=== PATIENT | female | born 1955 | race American Indian/Alaskan Native ===

== ENCOUNTER 2016-03-02 17:38 | Inpatient (IN) | payer MEDICARE ==
--- NOTE | 2016-03-02 18:43 | Emergency Department Report ---
HPI - General Time Seen by Provider: 03/02/16 18:18 - HPI HPI: Room 23 The patient is a 60-year-old female brought in from home with a chief complaint decreased appetite. Patient states EMS reported the patient's sent the patient to the ED for increased lethargy, decreased appetite and weakness for 1 month. The patient is not in the ED and EMS has not left a run sheet for further information. When asked how she is feeling the patient denies any complaints states she just feels "little bit confused." Patient denies pain of any type, shortness of breath nausea or vomiting Location: [see above] Duration: One month Quality: Weakness Severity: Moderate Modifying factors: [see above] Context: [see above] Mode of transportation: [not driving] ED Past Medical Hx - Past Medical History Hx Hypertension: Yes Hx Arthritis: Yes Hx COPD: Yes Additional medical history: "spinal cord injury", nerve damage bilateral LE - Surgical History Additional Surgical History: partial hysterectomy. right rotater cuff repair - Family History Family history: no significant - Social History Smoking Status: Current Every Day Smoker Substance Use Type: None - Medications Home Medications: Home Medications Medication Instructions Recorded Confirmed Last Taken Type Ondansetron [Zofran] 4 mg PO Q6HR PRN #20 tablet 03/12/13 Unknown Rx Ranitidine HCl [Zantac] 300 mg PO QDAY #20 tablet 03/12/13 Unknown Rx oxyCODONE /ACETAMINOPHEN [Percocet 1 tab PO Q6HR PRN #20 tablet 03/12/13 Unknown Rx 5/325 mg] Azithromycin [Zithromax Z-BELÉN] 0 mg PO DAILY #6 tab 09/30/14 Unknown Rx Prednisone [predniSONE 10 mg 10 mg PO .TAPER #1 tab.ds.pk 09/30/14 Unknown Rx (6-Day Pack, 21 Tabs)] Clindamycin [Clindamycin CAP] 450 mg PO Q8HR #21 capsule 11/11/14 Unknown Rx Sulfamethoxazole/Trimethoprim 1 each PO BID #14 tablet 11/11/14 Unknown Rx [Bactrim DS TAB] ED Review of Systems ROS: Stated complaint: WEAKNESS,LOSS OF APPETITE Other details as noted in HPI Comment: All other systems reviewed and negative Constitutional: malaise, weakness Eyes: denies: eye pain, eye discharge, vision change ENT: denies: ear pain, throat pain Respiratory: denies: cough, shortness of breath, wheezing Cardiovascular: denies: chest pain, palpitations Endocrine: no symptoms reported Gastrointestinal: nausea, other (anorexia). denies: abdominal pain, vomiting Genitourinary: as per HPI Musculoskeletal: denies: back pain, joint swelling, arthralgia Skin: denies: rash, lesions Neurological: confusion Psychiatric: denies: anxiety, depression Hematological/Lymphatic: denies: easy bleeding, easy bruising Physical Exam - Physical Exam Physical Exam: GENERAL: The patient is well-developed female lying on stretcher with dried and cracked lips not appearing to be in acute distress HEENT: Normocephalic. Atraumatic. Extraocular motions are intact. Patient has dry mucous membranes. NECK: Supple. Trachea midline CHEST/LUNGS: Clear to auscultation. There is no respiratory distress noted. HEART/CARDIOVASCULAR: Regular. There is no tachycardia. There is no gallop rub or murmur. ABDOMEN: Abdomen is soft, nontender. Patient has normal bowel sounds. There is no abdominal distention. SKIN: There is no rash. There is no edema. There is no diaphoresis. NEURO: The patient is awake and alert. The patient is cooperative. The patient has no focal neurologic deficits. The patient has normal speech. Cranial nerves II through XII grossly intact MUSCULOSKELETAL: There is no evidence of acute injury. ED Medical Decision Making - Lab Data Result diagrams: 03/02/16 18:35 03/02/16 18:35 Laboratory Tests 03/02/16 03/02/16 03/02/16 18:35 18:35 18:35 WBC 16.0 H RBC 3.60 L Hgb 11.4 Hct 35.4 MCV 98 H MCH 32 MCHC 32 RDW 16.6 H Plt Count 426 Lymph % (Auto) 11.1 L [place] % (Auto) 6.1 Eos % (Auto) 0.6 Baso % (Auto) 0.7 Lymph # 1.8 [place] # 1.0 H Eos # 0.1 Baso # 0.1 Seg Neutrophils % 81.5 H Seg Neutrophils # 13.0 H Sodium 142 Potassium 3.1 L Chloride 99.2 Carbon Dioxide 24 Anion Gap 22 BUN 12 Creatinine 0.5 L Estimated GFR > 60 BUN/Creatinine Ratio 24.00 Glucose 106 H Calcium 8.7 Total Bilirubin 1.5 H AST 46 H ALT 24 Alkaline Phosphatase 126 Total Creatine Kinase 42 CK-MB (CK-2) < 1.0 CK-MB (CK-2) Rel Index 2.3 Troponin T < 0.010 Total Protein 7.3 Albumin 3.1 L Albumin/Globulin Ratio 0.7 TSH 0.477 Free T4 1.36 Laboratory Tests 03/02/16 03/02/16 03/02/16 18:35 18:35 18:35 WBC 16.0 H RBC 3.60 L Hgb 11.4 Hct 35.4 MCV 98 H MCH 32 MCHC 32 RDW 16.6 H Plt Count 426 Lymph % (Auto) 11.1 L [place] % (Auto) 6.1 Eos % (Auto) 0.6 Baso % (Auto) 0.7 Lymph # 1.8 [place] # 1.0 H Eos # 0.1 Baso # 0.1 Seg Neutrophils % 81.5 H Seg Neutrophils # 13.0 H Sodium 142 Potassium 3.1 L Chloride 99.2 Carbon Dioxide 24 Anion Gap 22 BUN 12 Creatinine 0.5 L Estimated GFR > 60 BUN/Creatinine Ratio 24.00 Glucose 106 H Calcium 8.7 Total Bilirubin 1.5 H AST 46 H ALT 24 Alkaline Phosphatase 126 Total Creatine Kinase 42 CK-MB (CK-2) < 1.0 CK-MB (CK-2) Rel Index 2.3 Troponin T < 0.010 Total Protein 7.3 Albumin 3.1 L Albumin/Globulin Ratio 0.7 TSH 0.477 Free T4 1.36 Urine Color Urine Turbidity Urine pH Ur Specific [place] Urine Protein Urine Glucose (UA) Urine Ketones Urine Blood Urine Nitrite Urine Bilirubin Urine Ictotest Urine Urobilinogen Ur Leukocyte Esterase Urine WBC (Auto) Urine RBC (Auto) U Epithel Cells (Auto) Urine Bacteria (Auto) Urine Mucus 03/02/16 20:44 WBC RBC Hgb Hct MCV MCH MCHC RDW Plt Count Lymph % (Auto) [place] % (Auto) Eos % (Auto) Baso % (Auto) Lymph # [place] # Eos # Baso # Seg Neutrophils % Seg Neutrophils # Sodium Potassium Chloride Carbon Dioxide Anion Gap BUN Creatinine Estimated GFR BUN/Creatinine Ratio Glucose Calcium Total Bilirubin AST ALT Alkaline Phosphatase Total Creatine Kinase CK-MB (CK-2) CK-MB (CK-2) Rel Index Troponin T Total Protein Albumin Albumin/Globulin Ratio TSH Free T4 Urine Color Vera Urine Turbidity Clear Urine pH 7.0 Ur Specific [place] 1.023 Urine Protein 30 mg/dl Urine Glucose (UA) Neg Urine Ketones 20 Urine Blood Neg Urine Nitrite Neg Urine Bilirubin Mod Urine Ictotest Positive Urine Urobilinogen 4.0 Ur Leukocyte Esterase Tr Urine WBC (Auto) < 1.0 Urine RBC (Auto) 1.0 U Epithel Cells (Auto) 3.0 Urine Bacteria (Auto) 1+ Urine Mucus 3+ - Radiology Data Radiology results: report reviewed (CT head), image reviewed (CT head) CT head (read by radiologist)-there is no CT evidence of intracranial hemorrhage or edema or infarct or shift 4 distinct acute finding on his noncontrast scan. Mild cerebral atrophy. - Differential Diagnosis dehydration, ICH, Critical care attestation.: If time is entered above; I have spent that time in minutes in the direct care of this critically ill patient, excluding procedure time. ED Disposition Clinical Impression: Dehydration Disposition: OP ADMITTED IP TO THIS HOSP Is pt being admited?: Yes Does the pt Need Aspirin: Yes Condition: Fair Referrals: DIANELYS MALAGON MD [Primary Care Provider] - 3-5 Days Time of Disposition: 21:25 (hospitalist paged)
[2016-03-02 18:55] LABS: Basophils % (Auto) 0.7 % (0.0-1.8); Eosinophils % (Auto) 0.6 % (0.0-4.3); Hematocrit 35.4 % (30.3-42.9); Hemoglobin 11.4 gm/dl (10.1-14.3); Mean Corpuscular HGB Conc 32 % (30-34); Mean Corpuscular Hemoglobin 32 pg (28-32); Mean Corpuscular Volume 98 fl (79-97); Platelet Count 426 K/mm3 (140-440); Red Cell Distribution Width 16.6 % (13.2-15.2)
[2016-03-02 19:23] LABS: Creatine Kinase MB < 1.0 ng/mL (0.0-4.0)
[2016-03-02 19:26] LABS: Alanine Aminotransferase 24 units/L (7-56); Albumin 3.1 g/dL (3.9-5); Albumin/Globulin Ratio 0.7 %; Alkaline Phosphatase 126 units/L (35-129); Bilirubin,Total 1.5 mg/dL (0.1-1.2); Blood Urea Nitrogen 12 mg/dL (7-17); Calcium 8.7 mg/dL (8.4-10.2); Carbon Dioxide 24 mmol/L (22-30); Chloride 99.2 mmol/L (98-107); Creatine Kinase 42 units/L (30-135); Glucose 106 mg/dL (65-100); Potassium 3.1 mmol/L (3.6-5.0); Sodium 142 mmol/L (137-145); Total Protein 7.3 g/dL (6.3-8.2)
[2016-03-02 19:32] LABS: Anion Gap 22 mmol/L
--- NOTE | 2016-03-02 20:28 | Cat Scan Report ---
FINAL REPORT PROCEDURE: CT HEAD/BRAIN WO CON TECHNIQUE: Computerized tomography of the head was performed without contrast material. HISTORY: Mental status change. Confusion, vertical nystagmus. Visual disturbance COMPARISON: No prior studies are available for comparison. FINDINGS: Skull and scalp: Normal. Paranasal sinuses: Normal. Ventricles and subarachnoid spaces: There is mild cerebral atrophy. Cerebrum: No evidence of hemorrhage, acute infarction or mass . Cerebellum and brainstem: No evidence of hemorrhage, acute infarction or mass. Vasculature: Normal. Comments: None. IMPRESSION: 1. There is no CT evidence of intracranial hemorrhage or edema or infarct or shift or distinct acute finding on this noncontrast scan 2. Mild cerebral atrophy.
[2016-03-02 21:19] LABS: Bacteria,Urine 1+ /HPF (Negative); Bilirubin,Urine MOD (Negative); Blood,Urine NEG (Negative); Ketones,Urine 20 mg/dL (Negative); Leukocyte Esterase,Urine TR (Negative); Mucus,Urine 3+ /HPF; Nitrite,Urine NEG (Negative); WBC,Urine < 1.0 /HPF (0.0-6.0)
--- NOTE | 2016-03-02 22:31 | History and Physical Report ---
History of Present Illness Chief complaint: weakness, confusion History of present illness: 60 YO Female with HTN, OA, COPD, Nicotine Dependence presents to ED for evaluation. Pt is confused and unable to provide accurate history. Pt brought in from home with a chief complaint decreased appetite and weakness for the past month, as per the patients . The patient is not in the ED. Pt denies fever, chills, CP, Palpitations, NVD, or recent ill contacts. Past History Past Medical History: hypertension, other (oa, nicotine dependence) Past Surgical History: hysterectomy, Other (rotator cuff surgery) Social history: , smoking. denies: alcohol abuse, prescription drug abuse Family history: hypertension Medications and Allergies Allergies Allergy/AdvReac Type Severity Reaction Status Date / Time No Known Allergies Allergy Verified 03/02/16 21:45 Home Medications Medication Instructions Recorded Confirmed Last Taken Type oxyCODONE /ACETAMINOPHEN [Percocet 1 tab PO Q6HR PRN #20 tablet 03/12/13 Unknown Rx 5/325 mg] Review of Systems ROS unobtainable: due to mental status Constitutional: weakness Exam - Constitutional Vitals: Temp Pulse Resp BP Pulse Ox 99 F 65 16 166/85 96 03/02/16 18:29 03/02/16 21:43 03/02/16 21:43 03/02/16 21:43 03/02/16 21:43 General appearance: Present: mild distress, disheveled, malodorous - EENT Eyes: Present: PERRL ENT: hearing intact, clear oral mucosa - Neck Neck: Present: supple, normal ROM - Respiratory Respiratory effort: normal Respiratory: bilateral: CTA - Cardiovascular Heart Sounds: Present: S1 & S2. Absent: rub, click - Extremities Extremities: pulses symmetrical, No edema Peripheral Pulses: within normal limits - Abdominal General gastrointestinal: Present: soft, non-tender, non-distended, normal bowel sounds Female genitourinary: Present: normal - Integumentary Integumentary: Present: clear, warm, dry - Musculoskeletal Musculoskeletal: gait normal, strength equal bilaterally - Psychiatric Psychiatric: appropriate mood/affect, no intact judgment & insight, no memory intact - Neurologic Neurologic: CNII-XII intact, moves all extremities Results - Labs CBC & Chem 7: 03/02/16 18:35 03/02/16 18:35 Labs: Abnormal lab results 03/02/16 03/02/16 Range/Units 18:35 18:35 WBC 16.0 H (4.5-11.0) K/mm3 RBC 3.60 L (3.65-5.03) M/mm3 MCV 98 H (79-97) fl RDW 16.6 H (13.2-15.2) % Lymph % (Auto) 11.1 L (13.4-35.0) % [place] # 1.0 H (0.0-0.8) K/mm3 Seg Neutrophils % 81.5 H (40.0-70.0) % Seg Neutrophils # 13.0 H (1.8-7.7) K/mm3 Potassium 3.1 L (3.6-5.0) mmol/L Creatinine 0.5 L (0.7-1.2) mg/dL Glucose 106 H (65-100) mg/dL Total Bilirubin 1.5 H (0.1-1.2) mg/dL AST 46 H (5-40) units/L Albumin 3.1 L (3.9-5) g/dL Assessment and Plan - Patient Problems (1) Sepsis Current Visit: Yes Status: Acute Plan to address problem: sepsis protocol, IV abx, IVF, supportive care. (2) UTI (urinary tract infection) Current Visit: Yes Status: Acute Plan to address problem: IV abx, supportive care. (3) Metabolic encephalopathy Current Visit: Yes Status: Acute Plan to address problem: Treat uti, suppourtive care. repeat bmp (4) Elevated bilirubin Current Visit: Yes Status: Acute Plan to address problem: fractionated bilirubin, (5) Debility Current Visit: Yes Status: Acute Plan to address problem: Pt consulted. (6) DVT prophylaxis Current Visit: Yes Status: Acute
[2016-03-02] MEDS ORDERED: DUONEB 0.5 MG-3 MG/3 ML SOLN IH PRN (23:13)
[2016-03-03] MEDS ORDERED: ZOSYN/NS 4.5GM/100ML 100 ML IV ONE (00:23)
[2016-03-03] MEDS ORDERED: PROVENTIL IH PRN (00:24)
[2016-03-03] MEDS: ZOSYN/NS 4.5GM/100ML 100 ML IV SCH ×4 (00:26→17:57)
[2016-03-03] MEDS: APRESOLINE IV PRN ×2 (06:21→20:22)
--- NOTE | 2016-03-03 08:24 | Admit Criteria Form ---
Admission Criteria Documentation: URINARY COMPLICATIONS Clinical Indications for Inpatient Care (Place 'X' for any and all applicable criteria): Ongoing inpatient care may be indicated for urinary complications with ANY ONE of the following: [X ]I. Urinary tract infection requiring inpatient care as indicated by ANY ONE of the following(8)(19)(20): [ ]a) Severe symptoms (eg, high fever, severe pain) [ ]b) Vomiting or dehydration requiring ongoing inpatient care [X ]c) IV antibiotic needs that cannot be managed at lower level of care [ ]d) Hemodynamic instability [ ]e) Obstruction of collecting system by stone or tumor [ ]II. Urinary retention requiring drainage or surgery (3)(4)(5)(17)(18) [ ]III. Renal failure (Use Renal Failure Criteria for further information.) [ ]IV. Oliguria(30) [ ]V. Post obstructive diuresis requiring close monitoring of urine output and intravenous compensation for excessive fluid losses(33) Extended stay beyond goal length of stay for primary condition may be needed until ALL of the following are present(3)(4)(5)(8): [ ]a) Renal function (creatinine) at baseline, or daily decreases in creatinine consistent with renal function return [ ]b) Voiding adequately or with urinary catheter or percutaneous suprapubic tube and management regimen in place that is performable at lower level of care. [ ]c) Urine output adequate [ ]d) Fever absent or resolving [ ]e) Infection absent or treatable at next level of care The original [employer] content created by [employer] has been revised. The portions of the content which have been revised are identified through the use of italic text or in bold, and [facility] has neither reviewed nor approved the modified material. All other unmodified content is copyright [employer] Please see references footnoted in the original [employer] edition 2016 Admission Criteria Met: Yes
[2016-03-03] MEDS: NACL 0.45% 1000 ML 1,000 ML IV SCH (10:28)
[2016-03-03] MEDS: LEVAQUIN 750MG/150ML 150 ML IV SCH (11:04)
[2016-03-03 16:09] LABS: Hematocrit 36.9 % (30.3-42.9); Hemoglobin 12.1 gm/dl (10.1-14.3); Mean Corpuscular HGB Conc 33 % (30-34); Mean Corpuscular Hemoglobin 32 pg (28-32); Mean Corpuscular Volume 97 fl (79-97); Platelet Count 449 K/mm3 (140-440); Red Blood Count 3.81 M/mm3 (3.65-5.03); Red Cell Distribution Width 16.5 % (13.2-15.2); White Blood Count 19.2 K/mm3 (4.5-11.0)
--- NOTE | 2016-03-03 16:26 | Progress Note ---
Assessment and Plan Assessment and plan: Acute encephalopathy with confusion. Etiology unclear. Neurocheck every [address] head negative. Hypertension. Alcohol abuse. at bedside says she drinks a lot. Last drink 2 weeks ago. Start CIWA protocol. Full code status Leukocytosis. Etiology unclear. Poss sepsis. Started on Levaquin, Zosyn History Interval history: Confused, gen weakness poor appetite Hospitalist Physical - Physical exam Narrative exam: Narrative exam: Gen: Not in acute distress, ill looking HEENT: Atraumatic Neck :supple, no JVD Lungs: Lungs clear to auscultation bilaterally Heart: S1 and S2 regular, no murmurs no gallop Abdomen:soft, nontender, nondistended, normal bowel sounds Ext: No edema, no clubbing or cyanosis Neuro: Awake, alert, confused. oriented in person , place but not to time - Constitutional Vitals: Temp Pulse Resp BP Pulse Ox 99.3 F 101 H 20 178/105 100 03/03/16 11:40 03/03/16 11:40 03/03/16 11:40 03/03/16 11:40 03/03/16 08:27 General appearance: Present: mild distress, disheveled, malodorous Results - Labs CBC & Chem 7: 03/04/16 05:14 03/04/16 05:14 Labs: Laboratory Last Values WBC 19.2 K/mm3 (4.5-11.0) H 03/03/16 15:47 RBC 3.81 M/mm3 (3.65-5.03) 03/03/16 15:47 Hgb 12.1 gm/dl (10.1-14.3) 03/03/16 15:47 Hct 36.9 % (30.3-42.9) 03/03/16 15:47 MCV 97 fl (79-97) 03/03/16 15:47 MCH 32 pg (28-32) 03/03/16 15:47 MCHC 33 % (30-34) 03/03/16 15:47 RDW 16.5 % (13.2-15.2) H 03/03/16 15:47 Plt Count 449 K/mm3 (140-440) H 03/03/16 15:47 Lymph % (Auto) 11.1 % (13.4-35.0) L 03/02/16 18:35 [place] % (Auto) 6.1 % (0.0-7.3) 03/02/16 18:35 Eos % (Auto) 0.6 % (0.0-4.3) 03/02/16 18:35 Baso % (Auto) 0.7 % (0.0-1.8) 03/02/16 18:35 Lymph # 1.8 K/mm3 (1.2-5.4) 03/02/16 18:35 [place] # 1.0 K/mm3 (0.0-0.8) H 03/02/16 18:35 Eos # 0.1 K/mm3 (0.0-0.4) 03/02/16 18:35 Baso # 0.1 K/mm3 (0.0-0.1) 03/02/16 18:35 Seg Neutrophils % 81.5 % (40.0-70.0) H 03/02/16 18:35 Seg Neutrophils # 13.0 K/mm3 (1.8-7.7) H 03/02/16 18:35 Sodium 142 mmol/L (137-145) 03/02/16 18:35 Potassium 3.1 mmol/L (3.6-5.0) L 03/02/16 18:35 Chloride 99.2 mmol/L (98-107) 03/02/16 18:35 Carbon Dioxide 24 mmol/L (22-30) 03/02/16 18:35 Anion Gap 22 mmol/L 03/02/16 18:35 BUN 12 mg/dL (7-17) 03/02/16 18:35 Creatinine 0.5 mg/dL (0.7-1.2) L 03/02/16 18:35 Estimated GFR > 60 ml/min 03/02/16 18:35 BUN/Creatinine Ratio 24.00 % 03/02/16 18:35 Glucose 106 mg/dL (65-100) H 03/02/16 18:35 Lactic Acid 1.7 mmol/L (0.7-2.0) 03/03/16 02:43 Calcium 8.7 mg/dL (8.4-10.2) 03/02/16 18:35 Total Bilirubin 1.5 mg/dL (0.1-1.2) H 03/02/16 18:35 AST 46 units/L (5-40) H 03/02/16 18:35 ALT 24 units/L (7-56) 03/02/16 18:35 Alkaline Phosphatase 126 units/L (35-129) 03/02/16 18:35 Total Creatine Kinase 42 units/L (30-135) 03/02/16 18:35 CK-MB (CK-2) < 1.0 ng/mL (0.0-4.0) 03/02/16 18:35 CK-MB (CK-2) Rel Index 2.3 (0-4) 03/02/16 18:35 Troponin T < 0.010 ng/mL (0.00-0.029) 03/02/16 18:35 Total Protein 7.3 g/dL (6.3-8.2) 03/02/16 18:35 Albumin 3.1 g/dL (3.9-5) L 03/02/16 18:35 Albumin/Globulin Ratio 0.7 % 03/02/16 18:35 TSH 0.477 mlU/mL (0.270-4.200) 03/02/16 18:35 Free T4 1.36 ng/dL (0.76-1.46) 03/02/16 18:35 Urine Color Vera (Yellow) 03/02/16 20:44 Urine Turbidity Clear (Clear) 03/02/16 20:44 Urine pH 7.0 (5.0-7.0) 03/02/16 20:44 Ur Specific [place] 1.023 (1.003-1.030) 03/02/16 20:44 Urine Protein 30 mg/dl mg/dL (Negative) 03/02/16 20:44 Urine Glucose (UA) Neg mg/dL (Negative) 03/02/16 20:44 Urine Ketones 20 mg/dL (Negative) 03/02/16 20:44 Urine Blood Neg (Negative) 03/02/16 20:44 Urine Nitrite Neg (Negative) 03/02/16 20:44 Urine Bilirubin Mod (Negative) 03/02/16 20:44 Urine Ictotest Positive (Negative) 03/02/16 20:44 Urine Urobilinogen 4.0 mg/dL (<2.0) 03/02/16 20:44 Ur Leukocyte Esterase Tr (Negative) 03/02/16 20:44 Urine WBC (Auto) < 1.0 /HPF (0.0-6.0) 03/02/16 20:44 Urine RBC (Auto) 1.0 /HPF (0.0-6.0) 03/02/16 20:44 U Epithel Cells (Auto) 3.0 /HPF (0-13.0) 03/02/16 20:44 Urine Bacteria (Auto) 1+ /HPF (Negative) 03/02/16 20:44 Urine Mucus 3+ /HPF 03/02/16 20:44
[2016-03-03 16:37] LABS: BUN/Creatinine Ratio 13.33; Blood Urea Nitrogen 8 mg/dL (7-17); Calcium 8.5 mg/dL (8.4-10.2); Carbon Dioxide 20 mmol/L (22-30); Chloride 96.5 mmol/L (98-107); Glucose 139 mg/dL (65-100); Sodium 140 mmol/L (137-145)
[2016-03-03 16:43] LABS: Anion Gap 26 mmol/L
[2016-03-03 16:44] LABS: Potassium 2.8 mmol/L (3.6-5.0)
[2016-03-03] MEDS: KCL 10MEQ/100ML 100 ML IV SCH ×3 (20:23→23:28)
[2016-03-03] MEDS: HEPARIN SUB-Q SCH (21:48)
[2016-03-04] MEDS: ZOSYN/NS 4.5GM/100ML 100 ML IV SCH ×4 (01:01→18:01)
[2016-03-04] MEDS: APRESOLINE IV PRN (01:02)
[2016-03-04] MEDS: NACL 0.45% 1000 ML 1,000 ML IV SCH (01:03)
[2016-03-04 05:47] LABS: Alanine Aminotransferase 19 units/L (7-56); Albumin/Globulin Ratio 0.7 %; Alkaline Phosphatase 117 units/L (35-129); BUN/Creatinine Ratio 11.25; Bilirubin,Total 1.9 mg/dL (0.1-1.2); Blood Urea Nitrogen 9 mg/dL (7-17); Carbon Dioxide 19 mmol/L (22-30); Chloride 95.7 mmol/L (98-107); Glucose 130 mg/dL (65-100); Hematocrit 35.3 % (30.3-42.9); Hemoglobin 11.3 gm/dl (10.1-14.3); Mean Corpuscular HGB Conc 32 % (30-34); Mean Corpuscular Hemoglobin 31 pg (28-32); Mean Corpuscular Volume 97 fl (79-97); Platelet Count 438 K/mm3 (140-440); Potassium 3.3 mmol/L (3.6-5.0); Red Blood Count 3.64 M/mm3 (3.65-5.03); Red Cell Distribution Width 16.6 % (13.2-15.2); Sodium 135 mmol/L (137-145); Total Protein 7.1 g/dL (6.3-8.2); White Blood Count 23.1 K/mm3 (4.5-11.0)
[2016-03-04 05:48] LABS: Anion Gap 24 mmol/L
[2016-03-04] MEDS: HEPARIN SUB-Q SCH ×3 (06:30→21:38)
--- NOTE | 2016-03-04 06:57 | Consultation ---
History of Present Illness Consult date: 03/04/16 Chief complaint: AMS History of present illness: This is a 60 YO F admitted for failure to threive, decreased appetite, AMS. Not much history is available as the patient is unable to give much history and no family at bedside. On my arrival the patient is sleeping but is easily aroused. Is able to give me her name but does not know her birthdate. Past History Past Medical History: hypertension, other (oa, nicotine dependence) Past Surgical History: hysterectomy, Other (rotator cuff surgery) Social history: , smoking. denies: alcohol abuse, prescription drug abuse Family history: hypertension Medications and Allergies Allergies Allergy/AdvReac Type Severity Reaction Status Date / Time No Known Allergies Allergy Verified 03/02/16 21:45 Home Medications Medication Instructions Recorded Confirmed Last Taken Type oxyCODONE /ACETAMINOPHEN [Percocet 1 tab PO Q6HR PRN #20 tablet 03/12/13 Unknown Rx 5/325 mg] Acetaminophen-Codeine #3 TAB 30 mg PO PRN 03/03/16 Unknown History FLUoxetine HCL [FLUoxetine] 20 mg PO DAILY 03/03/16 03/03/16 Unknown History Gabapentin 600 mg PO TID 03/03/16 03/03/16 Unknown History Ibuprofen 800 mg PO PRN 03/03/16 Unknown History Lisinopril/Hydrochlorothiazide 20 mg PO DAILY 03/03/16 03/03/16 Unknown History Naproxen TAB 500 mg PO BID 03/03/16 03/03/16 Unknown History Sulfamethoxazole/Trimethoprim 800 mg PO BID 03/03/16 03/03/16 Unknown History Symbicort 160-4.5 (Nf) 160 INHALATION BID 03/03/16 Unknown History hydrOXYZINE PAMOATE [hydrOXYzine 25 mg PO BID 03/03/16 03/03/16 Unknown History Pamoate] traZODone 100 mg PO QHS 03/03/16 03/03/16 Unknown History Active Meds: Active Medications Acetaminophen (Tylenol) 650 mg PO Q4H PRN PRN Reason: Pain MILD(1-3)/Fever >100.5/GILL Albuterol (Proventil) 2.5 mg IH Q6HRT PRN PRN Reason: Shortness Of Breath Heparin Sodium (Porcine) (Heparin) 5,000 unit SUB-Q Q8HR PATTY Last Admin: 03/04/16 06:30 Dose: 5,000 unit Hydralazine HCl (Apresoline) 10 mg IV Q6H PRN PRN Reason: Hypertension Last Admin: 03/03/16 20:22 Dose: 10 mg Hydralazine HCl (Apresoline) 20 mg IV Q6H PRN PRN Reason: Blood Pressure Last Admin: 03/04/16 01:02 Dose: 20 mg Sodium Chloride (Nacl 0.45% 1000 Ml) 1,000 mls @ 100 mls/hr IV DIRECT PATTY Last Admin: 03/04/16 01:03 Dose: 100 mls/hr Levofloxacin/Dextrose (Levaquin 750mg/150ml) 150 mls @ 100 mls/hr IV Q24HR PATTY PRN Reason: Protocol Last Admin: 03/03/16 11:04 Dose: 100 mls/hr Piperacillin Sod/Tazobactam Sod (Zosyn/Ns 4.5gm/100ml) 100 mls @ 100 mls/30 min IV Q6HR PATTY PRN Reason: Protocol Last Admin: 03/04/16 06:30 Dose: 100 mls/30 min Oxycodone/Acetaminophen (Percocet 5/325) 1 tab PO Q6H PRN PRN Reason: Pain Review of Systems ROS unobtainable: due to mental status Physical Examination - Vital Signs Vital Signs: Vital Signs Temp Pulse BP Pulse Ox 99 F 61 158/91 100 03/02/16 18:29 03/02/16 18:29 03/02/16 18:29 03/02/16 18:29 - EENT EENT: Present: PERRL - Respiratory Respiratory: Present: lungs clear - Cardiovascular Cardiovascular: Present: regular rate - Neurologic Cranial nerve examination: PERRL, EOMI, V1/V2/V3 grossly intact, face symmetric , tongue midline Detailed motor examination: other (generalized weakness) Reflexes: 0: ankle, bicep, knee, tricep Results - Laboratory Findings CBC and BMP: 03/04/16 05:14 03/04/16 05:14 Abnormal Lab Findings: Abnormal Labs 03/03/16 03/03/16 03/04/16 15:47 15:47 05:14 WBC 19.2 H 23.1 H RBC 3.64 L RDW 16.5 H 16.6 H Plt Count 449 H Sodium Potassium 2.8 L* Chloride 96.5 L Carbon Dioxide 20 L Creatinine 0.6 L Glucose 139 H Calcium Total Bilirubin Albumin 03/04/16 05:14 WBC RBC RDW Plt Count Sodium 135 L Potassium 3.3 L Chloride 95.7 L Carbon Dioxide 19 L Creatinine Glucose 130 H Calcium 8.0 L Total Bilirubin 1.9 H Albumin 3.0 L - Diagnostic Findings Additional findings: HCT unremarkable, labs reviewed Assessment and Plan This is a 60 YO F with encephalopathy, likely from multiple etiologies. Recommend: MRI Brain EEG to look for background slowing Ammonia, B12, RPR and HIV Continue care for her medical issues as you are doing Thank you for this consult. Call with questions.
[2016-03-04] MEDS ORDERED: SODIUM CHLORIDE IV SCH (09:00)
[2016-03-04] MEDS ORDERED: POTASSIUM CHLORIDE IV SCH (09:00)
[2016-03-04] MEDS ORDERED: DEXTROSE IV SCH (09:00)
[2016-03-04] MEDS: LEVAQUIN 750MG/150ML 150 ML IV SCH (10:24)
--- NOTE | 2016-03-04 11:34 | Progress Note ---
Assessment and Plan Assessment and plan: Acute encephalopathy with confusion. Etiology unclear. Neurocheck every [address] head negative. Order MRI Brain. Neurology consulted, will follow recommendations. Hyperammonia. Start lactulose Hypertension. uncontrolled. Start Atenolol Alcohol abuse. at bedside says she drinks a lot. Last drink 2 weeks ago. Start CIWA protocol. Start Thiamine, folic acid, multivitamin Full code status Leukocytosis. Etiology unclear. Poss sepsis. Started on Levaquin, Zosyn History Interval history: Confused, agitated gen weakness poor appetite Hospitalist Physical - Physical exam Narrative exam: Narrative exam: Gen: Not in acute distress, ill looking HEENT: Atraumatic Neck :supple, no JVD Lungs: Lungs clear to auscultation bilaterally Heart: S1 and S2 regular, no murmurs no gallop Abdomen:soft, nontender, nondistended, normal bowel sounds Ext: No edema, no clubbing or cyanosis Neuro: Awake, alert, confused. oriented in person , place but not to time - Constitutional Vitals: Temp Pulse Resp BP Pulse Ox 98.2 F 107 H 17 124/84 96 03/04/16 05:08 03/04/16 05:08 03/04/16 05:08 03/04/16 05:08 03/04/16 05:08 General appearance: Present: mild distress, disheveled, malodorous Results - Labs CBC & Chem 7: 03/04/16 05:14 03/04/16 05:14 Labs: Laboratory Last Values WBC 23.1 K/mm3 (4.5-11.0) H 03/04/16 05:14 RBC 3.64 M/mm3 (3.65-5.03) L 03/04/16 05:14 Hgb 11.3 gm/dl (10.1-14.3) 03/04/16 05:14 Hct 35.3 % (30.3-42.9) 03/04/16 05:14 MCV 97 fl (79-97) 03/04/16 05:14 MCH 31 pg (28-32) 03/04/16 05:14 MCHC 32 % (30-34) 03/04/16 05:14 RDW 16.6 % (13.2-15.2) H 03/04/16 05:14 Plt Count 438 K/mm3 (140-440) 03/04/16 05:14 Lymph % (Auto) 11.1 % (13.4-35.0) L 03/02/16 18:35 [place] % (Auto) 6.1 % (0.0-7.3) 03/02/16 18:35 Eos % (Auto) 0.6 % (0.0-4.3) 03/02/16 18:35 Baso % (Auto) 0.7 % (0.0-1.8) 03/02/16 18:35 Lymph # 1.8 K/mm3 (1.2-5.4) 03/02/16 18:35 [place] # 1.0 K/mm3 (0.0-0.8) H 03/02/16 18:35 Eos # 0.1 K/mm3 (0.0-0.4) 03/02/16 18:35 Baso # 0.1 K/mm3 (0.0-0.1) 03/02/16 18:35 Seg Neutrophils % 81.5 % (40.0-70.0) H 03/02/16 18:35 Seg Neutrophils # 13.0 K/mm3 (1.8-7.7) H 03/02/16 18:35 Sodium 135 mmol/L (137-145) L 03/04/16 05:14 Potassium 3.3 mmol/L (3.6-5.0) L 03/04/16 05:14 Chloride 95.7 mmol/L (98-107) L 03/04/16 05:14 Carbon Dioxide 19 mmol/L (22-30) L 03/04/16 05:14 Anion Gap 24 mmol/L 03/04/16 05:14 BUN 9 mg/dL (7-17) 03/04/16 05:14 Creatinine 0.8 mg/dL (0.7-1.2) 03/04/16 05:14 Estimated GFR > 60 ml/min 03/04/16 05:14 BUN/Creatinine Ratio 11.25 % 03/04/16 05:14 Glucose 130 mg/dL (65-100) H 03/04/16 05:14 Lactic Acid 1.7 mmol/L (0.7-2.0) 03/03/16 02:43 Calcium 8.0 mg/dL (8.4-10.2) L 03/04/16 05:14 Total Bilirubin 1.9 mg/dL (0.1-1.2) H 03/04/16 05:14 AST 31 units/L (5-40) 03/04/16 05:14 ALT 19 units/L (7-56) 03/04/16 05:14 Alkaline Phosphatase 117 units/L (35-129) 03/04/16 05:14 Ammonia 95.0 umol/L (25-60) H 03/04/16 09:01 Total Creatine Kinase 42 units/L (30-135) 03/02/16 18:35 CK-MB (CK-2) < 1.0 ng/mL (0.0-4.0) 03/02/16 18:35 CK-MB (CK-2) Rel Index 2.3 (0-4) 03/02/16 18:35 Troponin T < 0.010 ng/mL (0.00-0.029) 03/02/16 18:35 Total Protein 7.1 g/dL (6.3-8.2) 03/04/16 05:14 Albumin 3.0 g/dL (3.9-5) L 03/04/16 05:14 Albumin/Globulin Ratio 0.7 % 03/04/16 05:14 TSH 0.477 mlU/mL (0.270-4.200) 03/02/16 18:35 Free T4 1.36 ng/dL (0.76-1.46) 03/02/16 18:35 Urine Color Vera (Yellow) 03/02/16 20:44 Urine Turbidity Clear (Clear) 03/02/16 20:44 Urine pH 7.0 (5.0-7.0) 03/02/16 20:44 Ur Specific [place] 1.023 (1.003-1.030) 03/02/16 20:44 Urine Protein 30 mg/dl mg/dL (Negative) 03/02/16 20:44 Urine Glucose (UA) Neg mg/dL (Negative) 03/02/16 20:44 Urine Ketones 20 mg/dL (Negative) 03/02/16 20:44 Urine Blood Neg (Negative) 03/02/16 20:44 Urine Nitrite Neg (Negative) 03/02/16 20:44 Urine Bilirubin Mod (Negative) 03/02/16 20:44 Urine Ictotest Positive (Negative) 03/02/16 20:44 Urine Urobilinogen 4.0 mg/dL (<2.0) 03/02/16 20:44 Ur Leukocyte Esterase Tr (Negative) 03/02/16 20:44 Urine WBC (Auto) < 1.0 /HPF (0.0-6.0) 03/02/16 20:44 Urine RBC (Auto) 1.0 /HPF (0.0-6.0) 03/02/16 20:44 U Epithel Cells (Auto) 3.0 /HPF (0-13.0) 03/02/16 20:44 Urine Bacteria (Auto) 1+ /HPF (Negative) 03/02/16 20:44 Urine Mucus 3+ /HPF 03/02/16 20:44
--- NOTE | 2016-03-04 13:39 | XRay Report ---
KUB: A Dobbhoff catheter tube was well positioned with the tip in the distal stomach region. There is mild gaseous dilatation of small bowel loops. No other findings noted.
[2016-03-04] MEDS: CEPHULAC FEEDTUBE SCH ×2 (14:32→18:00)
[2016-03-04] MEDS ORDERED: ATIVAN IV PRN ×2 (17:55)
[2016-03-04] MEDS ORDERED: CATAPRES PO PRN (17:59)
[2016-03-04 20:17] LABS: Phosphorous 1.4 mg/dL (2.5-4.5)
[2016-03-04] MEDS: TENORMIN PO SCH (21:36)
[2016-03-04] MEDS: FOLVITE PO SCH (21:36)
[2016-03-04] MEDS: VITAMIN B-1 100 MG in NACL 0.9% 50 ML IV SCH (22:40)
[2016-03-04] MEDS ORDERED: MAGNESIUM SULFATE 4GM/100ML 100 ML IV ONE (23:16)
[2016-03-04] MEDS ORDERED: SODIUM PHOSPHATE 30 MMOL in NACL 0.9% 500 ML 500 ML IV ONE (23:16)
[2016-03-04] MEDS ORDERED: SODIUM PHOSPHATE 45 MMOL in NACL 0.9% 500 ML 500 ML IV ONE (23:19)
[2016-03-05] MEDS: ZOSYN/NS 4.5GM/100ML 100 ML IV SCH ×4 (00:16→19:59)
[2016-03-05] MEDS: CEPHULAC FEEDTUBE SCH ×4 (00:16→19:59)
[2016-03-05] MEDS: ATIVAN IV PRN ×3 (00:24→11:48)
[2016-03-05] MEDS: HEPARIN SUB-Q SCH ×3 (07:05→21:25)
[2016-03-05 08:17] LABS: Hematocrit 34.1 % (30.3-42.9); Hemoglobin 11.1 gm/dl (10.1-14.3); Mean Corpuscular HGB Conc 33 % (30-34); Mean Corpuscular Hemoglobin 32 pg (28-32); Mean Corpuscular Volume 98 fl (79-97); Platelet Count 333 K/mm3 (140-440); Red Cell Distribution Width 16.1 % (13.2-15.2); White Blood Count 20.3 K/mm3 (4.5-11.0)
[2016-03-05 08:33] LABS: Albumin 2.4 g/dL (3.9-5); Albumin/Globulin Ratio 0.7 %; BUN/Creatinine Ratio 8.57; Bilirubin,Total 1.4 mg/dL (0.1-1.2); Calcium 7.6 mg/dL (8.4-10.2); Chloride 102.3 mmol/L (98-107); Total Protein 5.9 g/dL (6.3-8.2)
[2016-03-05 08:45] LABS: Potassium 2.7 mmol/L (3.6-5.0)
[2016-03-05] MEDS ORDERED: SODIUM BICARBONATE FEEDTUBE PRN ×2 (09:42→09:47)
[2016-03-05] MEDS ORDERED: PANCREAZE DR 10,500 UNIT FEEDTUBE PRN ×2 (09:42→09:47)
[2016-03-05] MEDS ORDERED: SIMPLE SYRUP FEEDTUBE PRN ×4 (09:42→09:47)
[2016-03-05] MEDS ORDERED: NON-FORMULARY (Lisinopril/Hydrochlorothiazide 20 MG) PO SCH (10:00)
[2016-03-05] MEDS: TENORMIN PO SCH (10:47)
--- NOTE | 2016-03-05 13:18 | Progress Note ---
Assessment and Plan Assessment and plan: Acute encephalopathy with confusion. Etiology unclear. Neurocheck every [address] head negative. Ordered MRI Brain. Neurology consulted and she evaluated patient. MRI brain not done because she was very agitated. Will try again tomorrow Hyperammonia. Improved, after starting lactulose . Hypertension. uncontrolled. Start Atenolol Alcohol abuse. saidshe drinks a lot. Last drink 2 weeks ago. Continue CIWA protocol, Thiamine, folic acid, multivitamin Full code status Leukocytosis. Etiology unclear. Poss sepsis. Started on Levaquin, Zosyn Hypomagnesemia. Replace iv and recheck Hypokalemia. Replace iv Hypophosphatemia. Replace iv History Interval history: Still Confused, agitated on and off gen weakness poor appetite Hospitalist Physical - Physical exam Narrative exam: Narrative exam: Gen: Not in acute distress, ill looking HEENT: Atraumatic Neck :supple, no JVD Lungs: Lungs clear to auscultation bilaterally Heart: S1 and S2 regular, no murmurs no gallop Abdomen:soft, nontender, nondistended, normal bowel sounds Ext: No edema, no clubbing or cyanosis Neuro: Awake, alert, confused. oriented in person , place but not to time - Constitutional Vitals: Temp Pulse Resp BP Pulse Ox 97.6 F 70 16 80/63 98 03/05/16 12:00 03/05/16 12:00 03/05/16 12:00 03/05/16 12:00 03/05/16 12:00 General appearance: Present: mild distress, disheveled, malodorous Results - Labs CBC & Chem 7: 03/05/16 07:39 03/05/16 17:59 Labs: Laboratory Last Values WBC 20.3 K/mm3 (4.5-11.0) H 03/05/16 07:39 RBC 3.50 M/mm3 (3.65-5.03) L 03/05/16 07:39 Hgb 11.1 gm/dl (10.1-14.3) 03/05/16 07:39 Hct 34.1 % (30.3-42.9) 03/05/16 07:39 MCV 98 fl (79-97) H 03/05/16 07:39 MCH 32 pg (28-32) 03/05/16 07:39 MCHC 33 % (30-34) 03/05/16 07:39 RDW 16.1 % (13.2-15.2) H 03/05/16 07:39 Plt Count 333 K/mm3 (140-440) 03/05/16 07:39 Lymph % (Auto) 11.1 % (13.4-35.0) L 03/02/16 18:35 [place] % (Auto) 6.1 % (0.0-7.3) 03/02/16 18:35 Eos % (Auto) 0.6 % (0.0-4.3) 03/02/16 18:35 Baso % (Auto) 0.7 % (0.0-1.8) 03/02/16 18:35 Lymph # 1.8 K/mm3 (1.2-5.4) 03/02/16 18:35 [place] # 1.0 K/mm3 (0.0-0.8) H 03/02/16 18:35 Eos # 0.1 K/mm3 (0.0-0.4) 03/02/16 18:35 Baso # 0.1 K/mm3 (0.0-0.1) 03/02/16 18:35 Seg Neutrophils % 81.5 % (40.0-70.0) H 03/02/16 18:35 Seg Neutrophils # 13.0 K/mm3 (1.8-7.7) H 03/02/16 18:35 Sodium 141 mmol/L (137-145) 03/05/16 07:39 Potassium 2.7 mmol/L (3.6-5.0) L* 03/05/16 07:39 Chloride 102.3 mmol/L (98-107) 03/05/16 07:39 Carbon Dioxide 19 mmol/L (22-30) L 03/05/16 07:39 Anion Gap 22 mmol/L 03/05/16 07:39 BUN 12 mg/dL (7-17) 03/05/16 07:39 Creatinine 1.4 mg/dL (0.7-1.2) H D 03/05/16 07:39 Estimated GFR 46 ml/min 03/05/16 07:39 BUN/Creatinine Ratio 8.57 % 03/05/16 07:39 Glucose 84 mg/dL (65-100) 03/05/16 07:39 Lactic Acid 1.7 mmol/L (0.7-2.0) 03/03/16 02:43 Calcium 7.6 mg/dL (8.4-10.2) L 03/05/16 07:39 Phosphorus 1.4 mg/dL (2.5-4.5) L 03/04/16 19:38 Magnesium 1.0 mg/dL (1.7-2.3) L 03/04/16 19:38 Total Bilirubin 1.4 mg/dL (0.1-1.2) H 03/05/16 07:39 AST 38 units/L (5-40) 03/05/16 07:39 ALT 17 units/L (7-56) 03/05/16 07:39 Alkaline Phosphatase 105 units/L (35-129) 03/05/16 07:39 Ammonia 52.0 umol/L (25-60) 03/05/16 07:39 Total Creatine Kinase 42 units/L (30-135) 03/02/16 18:35 CK-MB (CK-2) < 1.0 ng/mL (0.0-4.0) 03/02/16 18:35 CK-MB (CK-2) Rel Index 2.3 (0-4) 03/02/16 18:35 Troponin T < 0.010 ng/mL (0.00-0.029) 03/02/16 18:35 Total Protein 5.9 g/dL (6.3-8.2) L 03/05/16 07:39 Albumin 2.4 g/dL (3.9-5) L 03/05/16 07:39 Albumin/Globulin Ratio 0.7 % 03/05/16 07:39 TSH 0.427 mlU/mL (0.270-4.200) 03/04/16 19:38 Free T4 1.36 ng/dL (0.76-1.46) 03/02/16 18:35 Urine Color Vera (Yellow) 03/02/16 20:44 Urine Turbidity Clear (Clear) 03/02/16 20:44 Urine pH 7.0 (5.0-7.0) 03/02/16 20:44 Ur Specific [place] 1.023 (1.003-1.030) 03/02/16 20:44 Urine Protein 30 mg/dl mg/dL (Negative) 03/02/16 20:44 Urine Glucose (UA) Neg mg/dL (Negative) 03/02/16 20:44 Urine Ketones 20 mg/dL (Negative) 03/02/16 20:44 Urine Blood Neg (Negative) 03/02/16 20:44 Urine Nitrite Neg (Negative) 03/02/16 20:44 Urine Bilirubin Mod (Negative) 03/02/16 20:44 Urine Ictotest Positive (Negative) 03/02/16 20:44 Urine Urobilinogen 4.0 mg/dL (<2.0) 03/02/16 20:44 Ur Leukocyte Esterase Tr (Negative) 03/02/16 20:44 Urine WBC (Auto) < 1.0 /HPF (0.0-6.0) 03/02/16 20:44 Urine RBC (Auto) 1.0 /HPF (0.0-6.0) 03/02/16 20:44 U Epithel Cells (Auto) 3.0 /HPF (0-13.0) 03/02/16 20:44 Urine Bacteria (Auto) 1+ /HPF (Negative) 03/02/16 20:44 Urine Mucus 3+ /HPF 03/02/16 20:44
[2016-03-05] MEDS: D5NS 1,000 ML IV SCH ×2 (14:27→22:50)
[2016-03-05] MEDS: KCL 10MEQ/100ML 100 ML IV SCH ×3 (14:28→15:51)
[2016-03-05] MEDS: FOLVITE PO SCH (14:28)
[2016-03-05] MEDS: VITAMIN B-1 100 MG in NACL 0.9% 50 ML IV SCH (15:50)
[2016-03-05] MEDS: LEVAQUIN 750MG/150ML 150 ML IV SCH (15:51)
[2016-03-05 18:30] LABS: BUN/Creatinine Ratio 8.57; Calcium 7.3 mg/dL (8.4-10.2); Chloride 106.8 mmol/L (98-107); Magnesium 2.6 mg/dL (1.7-2.3); Phosphorous 6.7 mg/dL (2.5-4.5); Potassium 3.2 mmol/L (3.6-5.0)
[2016-03-06] MEDS: ZOSYN/NS 4.5GM/100ML 100 ML IV SCH ×4 (00:08→17:20)
[2016-03-06] MEDS: CEPHULAC FEEDTUBE SCH ×4 (00:09→17:20)
[2016-03-06] MEDS: ATIVAN IV PRN ×4 (02:41→20:40)
[2016-03-06] MEDS: HEPARIN SUB-Q SCH ×3 (05:55→22:07)
[2016-03-06] MEDS: LEVAQUIN 750MG/150ML 150 ML IV SCH (10:27)
[2016-03-06] MEDS: FOLVITE PO SCH (10:27)
[2016-03-06 10:38] LABS: Hematocrit 31.3 % (30.3-42.9); Hemoglobin 9.9 gm/dl (10.1-14.3); Mean Corpuscular HGB Conc 32 % (30-34); Mean Corpuscular Hemoglobin 31 pg (28-32); Mean Corpuscular Volume 98 fl (79-97); Platelet Count 317 K/mm3 (140-440); Red Blood Count 3.19 M/mm3 (3.65-5.03); Red Cell Distribution Width 16.8 % (13.2-15.2)
[2016-03-06 10:44] LABS: White Blood Count 22.2 K/mm3 (4.5-11.0)
[2016-03-06 11:03] LABS: Anion Gap 21 mmol/L; BUN/Creatinine Ratio 8.18; Blood Urea Nitrogen 9 mg/dL (7-17); Calcium 7.4 mg/dL (8.4-10.2); Carbon Dioxide 16 mmol/L (22-30); Glucose 137 mg/dL (65-100); Sodium 150 mmol/L (137-145)
[2016-03-06 11:09] LABS: Potassium 2.8 mmol/L (3.6-5.0)
[2016-03-06] MEDS: TENORMIN PO SCH (11:29)
--- NOTE | 2016-03-06 13:08 | Progress Note ---
Assessment and Plan Assessment and plan: Acute encephalopathy with confusion. Etiology unclear. Neurocheck every [address] head negative. Ordered MRI Brain. Neurology consulted and she evaluated patient. MRI brain not done because she was very agitated. Will try again. Hyperammonia. Improved, after starting lactulose . Hypertension. uncontrolled. Start Atenolol Alcohol abuse. said she drinks a lot. Last drink 2 weeks ago. Continue CIWA protocol, Thiamine, folic acid, multivitamin Full code status Leukocytosis. Etiology unclear. Poss sepsis. Continue Levaquin, Zosyn Hypomagnesemia. Replaced iv. Now resolved Hypokalemia. Give iv and recheck Hypophosphatemia. resolved after repoacement. History Interval history: Still Confused, agitated on and off gen weakness poor appetite Hospitalist Physical - Physical exam Narrative exam: Narrative exam: Gen: Not in acute distress, ill looking HEENT: Atraumatic Neck :supple, no JVD Lungs: Lungs clear to auscultation bilaterally Heart: S1 and S2 regular, no murmurs no gallop Abdomen:soft, nontender, nondistended, normal bowel sounds Ext: No edema, no clubbing or cyanosis Neuro: Awake, alert, confused. oriented in person , place but not to time - Constitutional Vitals: Temp Pulse Resp BP Pulse Ox 97.6 F 75 16 114/72 100 03/06/16 08:00 03/06/16 11:29 03/06/16 08:00 03/06/16 11:29 03/06/16 08:00 General appearance: Present: mild distress, disheveled, malodorous Results - Labs CBC & Chem 7: 03/06/16 09:54 03/06/16 09:54 Labs: Laboratory Last Values WBC 22.2 K/mm3 (4.5-11.0) H 03/06/16 09:54 RBC 3.19 M/mm3 (3.65-5.03) L 03/06/16 09:54 Hgb 9.9 gm/dl (10.1-14.3) L 03/06/16 09:54 Hct 31.3 % (30.3-42.9) 03/06/16 09:54 MCV 98 fl (79-97) H 03/06/16 09:54 MCH 31 pg (28-32) 03/06/16 09:54 MCHC 32 % (30-34) 03/06/16 09:54 RDW 16.8 % (13.2-15.2) H 03/06/16 09:54 Plt Count 317 K/mm3 (140-440) 03/06/16 09:54 Lymph % (Auto) 11.1 % (13.4-35.0) L 03/02/16 18:35 [place] % (Auto) 6.1 % (0.0-7.3) 03/02/16 18:35 Eos % (Auto) 0.6 % (0.0-4.3) 03/02/16 18:35 Baso % (Auto) 0.7 % (0.0-1.8) 03/02/16 18:35 Lymph # 1.8 K/mm3 (1.2-5.4) 03/02/16 18:35 [place] # 1.0 K/mm3 (0.0-0.8) H 03/02/16 18:35 Eos # 0.1 K/mm3 (0.0-0.4) 03/02/16 18:35 Baso # 0.1 K/mm3 (0.0-0.1) 03/02/16 18:35 Seg Neutrophils % 81.5 % (40.0-70.0) H 03/02/16 18:35 Seg Neutrophils # 13.0 K/mm3 (1.8-7.7) H 03/02/16 18:35 Sodium 150 mmol/L (137-145) H D 03/06/16 09:54 Potassium 2.8 mmol/L (3.6-5.0) L* 03/06/16 09:54 Chloride 106.8 mmol/L (98-107) 03/05/16 17:59 Carbon Dioxide 16 mmol/L (22-30) L 03/06/16 09:54 Anion Gap 19 mmol/L 03/05/16 17:59 BUN 9 mg/dL (7-17) 03/06/16 09:54 Creatinine 1.1 mg/dL (0.7-1.2) 03/06/16 09:54 Estimated GFR > 60 ml/min 03/06/16 09:54 BUN/Creatinine Ratio 8.18 % 03/06/16 09:54 Glucose 137 mg/dL (65-100) H 03/06/16 09:54 Lactic Acid 1.7 mmol/L (0.7-2.0) 03/03/16 02:43 Calcium 7.4 mg/dL (8.4-10.2) L 03/06/16 09:54 Phosphorus 6.7 mg/dL (2.5-4.5) H D 03/05/16 17:59 Magnesium 2.6 mg/dL (1.7-2.3) H 03/05/16 17:59 Total Bilirubin 1.4 mg/dL (0.1-1.2) H 03/05/16 07:39 AST 38 units/L (5-40) 03/05/16 07:39 ALT 17 units/L (7-56) 03/05/16 07:39 Alkaline Phosphatase 105 units/L (35-129) 03/05/16 07:39 Ammonia 52.0 umol/L (25-60) 03/05/16 07:39 Total Creatine Kinase 42 units/L (30-135) 03/02/16 18:35 CK-MB (CK-2) < 1.0 ng/mL (0.0-4.0) 03/02/16 18:35 CK-MB (CK-2) Rel Index 2.3 (0-4) 03/02/16 18:35 Troponin T < 0.010 ng/mL (0.00-0.029) 03/02/16 18:35 Total Protein 5.9 g/dL (6.3-8.2) L 03/05/16 07:39 Albumin 2.4 g/dL (3.9-5) L 03/05/16 07:39 Albumin/Globulin Ratio 0.7 % 03/05/16 07:39 TSH 0.427 mlU/mL (0.270-4.200) 03/04/16 19:38 Free T4 1.36 ng/dL (0.76-1.46) 03/02/16 18:35 Urine Color Vera (Yellow) 03/02/16 20:44 Urine Turbidity Clear (Clear) 03/02/16 20:44 Urine pH 7.0 (5.0-7.0) 03/02/16 20:44 Ur Specific [place] 1.023 (1.003-1.030) 03/02/16 20:44 Urine Protein 30 mg/dl mg/dL (Negative) 03/02/16 20:44 Urine Glucose (UA) Neg mg/dL (Negative) 03/02/16 20:44 Urine Ketones 20 mg/dL (Negative) 03/02/16 20:44 Urine Blood Neg (Negative) 03/02/16 20:44 Urine Nitrite Neg (Negative) 03/02/16 20:44 Urine Bilirubin Mod (Negative) 03/02/16 20:44 Urine Ictotest Positive (Negative) 03/02/16 20:44 Urine Urobilinogen 4.0 mg/dL (<2.0) 03/02/16 20:44 Ur Leukocyte Esterase Tr (Negative) 03/02/16 20:44 Urine WBC (Auto) < 1.0 /HPF (0.0-6.0) 03/02/16 20:44 Urine RBC (Auto) 1.0 /HPF (0.0-6.0) 03/02/16 20:44 U Epithel Cells (Auto) 3.0 /HPF (0-13.0) 03/02/16 20:44 Urine Bacteria (Auto) 1+ /HPF (Negative) 03/02/16 20:44 Urine Mucus 3+ /HPF 03/02/16 20:44
--- NOTE | 2016-03-06 13:24 | Consultation ---
History of Present Illness - Reason for Consult Consult date: 03/06/16 Leukocytosis Requesting physician: NOAH PEREZ - History of Present Illness Edith Coelho is a 60-year-old female with hypertension, obstructive sleep apnea and COPD who was admitted to [facility] on 03/02/16 with a one-month history of decreased appetite and increasing weakness. She has had a persistent leukocytosis. She is very confused at present and cannot furnish any further history and no family members are curremt;y available for interview. Thus the history is obtained solely from her medical records. Her has apparently told the nursing staff that she consumes a lot of alcohol but exact details are unclear. Review of systems Not obtainable secondary to pt's menatl status. Past History Past Medical History: hypertension, other (oa, nicotine dependence) Past Surgical History: hysterectomy, Other (rotator cuff surgery) Social history: , smoking. denies: alcohol abuse, prescription drug abuse Family history: hypertension Medications and Allergies Allergies Allergy/AdvReac Type Severity Reaction Status Date / Time No Known Allergies Allergy Verified 03/02/16 21:45 Home Medications Medication Instructions Recorded Confirmed Last Taken Type oxyCODONE /ACETAMINOPHEN [Percocet 1 tab PO Q6HR PRN #20 tablet 03/12/13 Unknown Rx 5/325 mg] Acetaminophen-Codeine #3 TAB 30 mg PO PRN 03/03/16 Unknown History FLUoxetine HCL [FLUoxetine] 20 mg PO DAILY 03/03/16 03/03/16 Unknown History Gabapentin 600 mg PO TID 03/03/16 03/03/16 Unknown History Ibuprofen 800 mg PO PRN 03/03/16 Unknown History Lisinopril/Hydrochlorothiazide 20 mg PO DAILY 03/03/16 03/03/16 Unknown History Naproxen TAB 500 mg PO BID 03/03/16 03/03/16 Unknown History Sulfamethoxazole/Trimethoprim 800 mg PO BID 03/03/16 03/03/16 Unknown History Symbicort 160-4.5 (Nf) 160 INHALATION BID 03/03/16 Unknown History hydrOXYZINE PAMOATE [hydrOXYzine 25 mg PO BID 03/03/16 03/03/16 Unknown History Pamoate] traZODone 100 mg PO QHS 03/03/16 03/03/16 Unknown History Active Meds: Active Medications Acetaminophen (Tylenol) 650 mg PO Q4H PRN PRN Reason: Pain MILD(1-3)/Fever >100.5/GILL Albuterol (Proventil) 2.5 mg IH Q6HRT PRN PRN Reason: Shortness Of Breath Lipase/Protease/Amylase (Pancreaze Dr 10,500 Unit) 1 each FEEDTUBE PRN PRN PRN Reason: For Clogged Feeding Tube Lipase/Protease/Amylase (Pancreaze Dr 10,500 Unit) 1 each FEEDTUBE PRN PRN PRN Reason: For Clogged Feeding Tube Atenolol (Tenormin) 50 mg PO QDAY [facility] Last Admin: 03/06/16 11:29 Dose: Not Given Clonidine HCl (Catapres) 0.1 mg PO Q4H PRN PRN Reason: For SBP>170 or DBP>110 Folic Acid (Folvite) 1 mg PO QDAY [facility] Last Admin: 03/06/16 10:27 Dose: 1 mg Heparin Sodium (Porcine) (Heparin) 5,000 unit SUB-Q Q8HR [facility] Last Admin: 03/06/16 05:55 Dose: 5,000 unit Hydralazine HCl (Apresoline) 20 mg IV Q6H PRN PRN Reason: Blood Pressure Last Admin: 03/04/16 01:02 Dose: 20 mg Levofloxacin/Dextrose (Levaquin 750mg/150ml) 150 mls @ 100 mls/hr IV Q24HR [facility] PRN Reason: Protocol Last Admin: 03/06/16 10:27 Dose: 100 mls/hr Piperacillin Sod/Tazobactam Sod (Zosyn/Ns 4.5gm/100ml) 100 mls @ 100 mls/30 min IV Q6HR [facility] PRN Reason: Protocol Last Admin: 03/06/16 11:29 Dose: 100 mls/30 min Thiamine HCl 100 mg/ Sodium (Chloride) 51 mls @ 100 mls/hr IV QDAY [facility] Last Admin: 03/05/16 15:50 Dose: 100 mls/hr Dextrose (D5w) 1,000 mls @ 100 mls/hr IV DIRECT PATTY Potassium Chloride (Kcl 10meq/100ml) 100 mls @ 100 mls/hr IV Q1H [facility] Stop: 03/06/16 15:59 Lactulose (Cephulac) 20 gm FEEDTUBE Q6HR [facility] Last Admin: 03/06/16 11:29 Dose: 20 gm Lorazepam (Ativan) 1 mg IV Q1H PRN PRN Reason: agitation or anxiety Last Admin: 03/06/16 11:28 Dose: 1 mg Lorazepam (Ativan) 4 mg IV Q1HR PRN PRN Reason: CIWA-Ar 16-25 Lorazepam (Ativan) 2 mg IV Q1HR PRN PRN Reason: CIWA-Ar 8-15 Last Admin: 03/05/16 11:48 Dose: 2 mg Lorazepam (Ativan) 4 mg IV Q15MIN PRN PRN Reason: CIWA-Ar >25 Miscellaneous Medication (Lisinopril/Hydrochlorothiazide) 20 mg PO DAILY [facility] Oxycodone/Acetaminophen (Percocet 5/325) 1 tab PO Q6H PRN PRN Reason: Pain Simple Syrup (Simple Syrup) 15 ml FEEDTUBE PRN PRN PRN Reason: Hypoglycemia Simple Syrup (Simple Syrup) 30 ml FEEDTUBE PRN PRN PRN Reason: Hypoglycemia Simple Syrup (Simple Syrup) 15 ml FEEDTUBE PRN PRN PRN Reason: Hypoglycemia Simple Syrup (Simple Syrup) 30 ml FEEDTUBE PRN PRN PRN Reason: Hypoglycemia Sodium Bicarbonate (Sodium Bicarbonate) 325 mg FEEDTUBE PRN PRN PRN Reason: For Clogged Feeding Tube Sodium Bicarbonate (Sodium Bicarbonate) 325 mg FEEDTUBE PRN PRN PRN Reason: For Clogged Feeding Tube Sodium Bicarbonate (Sodium Bicarbonate) 650 mg FEEDTUBE TID [facility] Stop: 03/08/16 13:59 Physical Examination - Physical Exam Narrative exam: GENERAL: Well-developed, thin female who is lying sideways in the bed and is somewhat agitated. HEAD: Normocephalic. No lesions seen. EYES: Pupils are equal reactive to light and accommodation. There is no scleral icterus. Optic fundi are not examined. There is bilateral arcus senilis. EARS: Tympanic membranes are normal. THROAT: Oropharynx is normal with no evidence of oral candidiasis or pharyngitis. Poor dentition but no obvious dental infection seen. Some bleeding from the upper lip. NECK: Supple. No enlargement of the thyroid gland. No significant cervical lymphadenopathy. No jugular venous distention at 30. LUNGS: Clear with no adventitious sounds. HEART: Regular rate. S1 and S2 are normal. There are no murmurs, gallops, clicks or rubs heard. ABDOMEN: Soft, slightly distended and mildly, diffusdely tender although she yells when she is touched anywhere. Liver and spleen are not palpably enlarged or tender. No palpable masses. No ascites. Bowel sounds are normoactive. RECTAL: No perirectal pathology EXTREMITIES: No rash, peripheral lymphadenopathy, clubbing or edema. : Normal external female. No Gonzalez. Diaper in place. NEUROLOGIC: No focal findings. Agitated and confused. No asterixis. - Constitutional Vitals: Vital Signs Temp Pulse Resp BP Pulse Ox 97.6 F 75 16 114/72 100 03/06/16 08:00 03/06/16 11:29 03/06/16 08:00 03/06/16 11:29 03/06/16 08:00 Temperature -Last 24 Hours Temperature 97.6 F Temperature 98.4 F Temperature 97.4 F Results - Labs CBC & Chem 7: 03/06/16 09:54 03/06/16 18:07 Labs: Abnormal lab results Laboratory Tests 03/02/16 03/02/16 03/02/16 18:35 18:35 20:44 Troponin T < 0.010 TSH 0.477 Free T4 1.36 Urine WBC (Auto) < 1.0 Urine RBC (Auto) 1.0 Urine Bacteria (Auto) 1+ Microbiology 03/04/16 09:18 Peripheral/Venous Blood Culture - Preliminary NO GROWTH AFTER 48 HOURS 03/04/16 09:01 Peripheral/Venous Blood Culture - Preliminary NO GROWTH AFTER 48 HOURS 03/04/16 Unknown Urine,Clean Catch Urine Culture - Preliminary 10,00-100,00 Gram Negative [place] ID/sensitivity pending) Imagin/3: CT of head: Mild cerebral atrophy. Otherwise normal. Assessment and Plan Current antibiotics: Levaquin 750 mg IV q24h 03/03 --> Previous antibiotics: Zosyn 4.5 grams IV q8h 03/03-03/06 ASSESSMENT: екатерина Coelho is a 60-year-old female with hypertension, obstructive sleep apnea and COPD who was admitted to [facility] on 03/02/16 with a one-month history of decreased appetite and increasing weakness. She has had a persistent leukocytosis. Problem list: 1. Leukocytosis -Likely reactive secondary to whatever is causing her encephalopathy: ? ETOH withdrawal, etc. -Rule out infection although work up negative to date and no obvious source on exam 2. AMS -Rule out toxic metabolic encephalopathy -Rule out ETOH withdrawal -Doubt [employer] infection 3. Gram negative pyuria -Urinalysis not suggestive of UTI with no pyuria 4. Hypokalemia -? secondary to hydrochlorothiazide PLAN: 1. Stop antibiotics at this point and follow 2. Work up for encephalopathy as per neuro 3. If leukocytosis persists and no etiology uncovered may need to consider a lumbar puncture 4. Replete K as per the hospitalist team Thank you for this consultation. We will follow with you. Bayron Avitia MD [facility] Office: [phone]
[2016-03-06] MEDS: SODIUM BICARBONATE FEEDTUBE SCH ×2 (14:17→20:53)
[2016-03-06] MEDS: HCTZ PO SCH (15:00)
[2016-03-06] MEDS: ZESTRIL PO SCH (15:00)
[2016-03-06] MEDS: KCL 10MEQ/100ML 100 ML IV SCH ×5 (17:21→23:00)
[2016-03-06 18:57] LABS: BUN/Creatinine Ratio 8.88; Blood Urea Nitrogen 8 mg/dL (7-17); Calcium 7.7 mg/dL (8.4-10.2); Carbon Dioxide 16 mmol/L (22-30); Chloride 113.5 mmol/L (98-107); Glucose 106 mg/dL (65-100); Sodium 145 mmol/L (137-145)
[2016-03-06 19:29] LABS: Anion Gap 18 mmol/L; Potassium 2.8 mmol/L (3.6-5.0)
[2016-03-07] MEDS: ZOSYN/NS 4.5GM/100ML 100 ML IV SCH ×3 (00:58→18:00)
[2016-03-07] MEDS: CEPHULAC FEEDTUBE SCH ×4 (00:59→20:01)
[2016-03-07 05:09] LABS: Hematocrit 30.9 % (30.3-42.9); Hemoglobin 9.9 gm/dl (10.1-14.3); Mean Corpuscular HGB Conc 32 % (30-34); Mean Corpuscular Hemoglobin 31 pg (28-32); Mean Corpuscular Volume 97 fl (79-97); Platelet Count 300 K/mm3 (140-440); Red Cell Distribution Width 16.6 % (13.2-15.2); White Blood Count 19.7 K/mm3 (4.5-11.0)
[2016-03-07 05:26] LABS: BUN/Creatinine Ratio 8.75; Blood Urea Nitrogen 7 mg/dL (7-17); Calcium 7.8 mg/dL (8.4-10.2); Carbon Dioxide 19 mmol/L (22-30); Glucose 140 mg/dL (65-100); Magnesium 1.8 mg/dL (1.7-2.3); Phosphorous 2.5 mg/dL (2.5-4.5)
[2016-03-07 05:27] LABS: Chloride 114.1 mmol/L (98-107); Sodium 145 mmol/L (137-145)
[2016-03-07 05:28] LABS: Anion Gap 15 mmol/L; Potassium 2.9 mmol/L (3.6-5.0)
[2016-03-07] MEDS: HEPARIN SUB-Q SCH ×3 (06:07→22:51)
[2016-03-07] MEDS: TENORMIN PO SCH (10:33)
[2016-03-07] MEDS: HCTZ PO SCH (10:33)
[2016-03-07] MEDS: SODIUM BICARBONATE FEEDTUBE SCH ×3 (10:34→22:50)
[2016-03-07] MEDS: FOLVITE PO SCH (10:34)
[2016-03-07] MEDS: ZESTRIL PO SCH (10:34)
[2016-03-07] MEDS: POTASSIUM CHLORIDE FEEDTUBE SCH ×4 (10:35→19:59)
[2016-03-07] MEDS: KCL 10MEQ/100ML 100 ML IV SCH ×6 (11:02→19:59)
[2016-03-07] MEDS: VITAMIN B-1 100 MG in NACL 0.9% 50 ML IV SCH (12:16)
[2016-03-07] MEDS: APRESOLINE IV PRN (12:28)
--- NOTE | 2016-03-07 13:01 | Progress Note ---
Assessment and Plan Assessment and plan: Acute encephalopathy with confusion. Etiology unclear. Neurocheck every [address] head negative. Ordered MRI Brain. Neurology consulted and she evaluated patient. MRI brain not done because she was very agitated. Will try again. Hyperammonia. Improved, after starting lactulose . Hypertension. Continue Atenolol, lisinopril, clonidine prn. Alcohol withdrawal syndrome. On [facility] protocol Alcohol abuse. said she drinks a lot. Last drink 2 weeks ago. Continue [facility] protocol, Thiamine, folic acid, multivitamin. Full code status Leukocytosis. Etiology unclear. Poss sepsis. ID Physician following. Hypomagnesemia. Replaced iv. Now resolved Hypokalemia. This has been persistent even after getting large doses of potassium. Will continue to replace. Hypophosphatemia. resolved after replacement. Full code status. History Interval history: Still Confused, still agitated on and off, Could not do MRI because of agitation gen weakness poor appetite Hospitalist Physical - Physical exam Narrative exam: Narrative exam: Gen: Not in acute distress, ill looking,emqaciated HEENT: Atraumatic Neck :supple, no JVD Lungs: Lungs clear to auscultation bilaterally Heart: S1 and S2 regular, no murmurs no gallop Abdomen:soft, nontender, nondistended, normal bowel sounds Ext: No edema, no clubbing or cyanosis Neuro: Awake, alert, confused. oriented in person , place but not to time - Constitutional Vitals: Temp Pulse Resp BP Pulse Ox 97.5 F L 82 18 170/109 98 03/07/16 12:00 03/07/16 12:00 03/07/16 12:00 03/07/16 12:28 03/07/16 12:00 General appearance: Present: mild distress, disheveled, malodorous Results - Labs CBC & Chem 7: 03/07/16 04:53 03/07/16 04:53 Labs: Laboratory Last Values WBC 19.7 K/mm3 (4.5-11.0) H 03/07/16 04:53 RBC 3.20 M/mm3 (3.65-5.03) L 03/07/16 04:53 Hgb 9.9 gm/dl (10.1-14.3) L 03/07/16 04:53 Hct 30.9 % (30.3-42.9) 03/07/16 04:53 MCV 97 fl (79-97) 03/07/16 04:53 MCH 31 pg (28-32) 03/07/16 04:53 MCHC 32 % (30-34) 03/07/16 04:53 RDW 16.6 % (13.2-15.2) H 03/07/16 04:53 Plt Count 300 K/mm3 (140-440) 03/07/16 04:53 Lymph % (Auto) 11.1 % (13.4-35.0) L 03/02/16 18:35 [place] % (Auto) 6.1 % (0.0-7.3) 03/02/16 18:35 Eos % (Auto) 0.6 % (0.0-4.3) 03/02/16 18:35 Baso % (Auto) 0.7 % (0.0-1.8) 03/02/16 18:35 Lymph # 1.8 K/mm3 (1.2-5.4) 03/02/16 18:35 [place] # 1.0 K/mm3 (0.0-0.8) H 03/02/16 18:35 Eos # 0.1 K/mm3 (0.0-0.4) 03/02/16 18:35 Baso # 0.1 K/mm3 (0.0-0.1) 03/02/16 18:35 Seg Neutrophils % 81.5 % (40.0-70.0) H 03/02/16 18:35 Seg Neutrophils # 13.0 K/mm3 (1.8-7.7) H 03/02/16 18:35 Sodium 145 mmol/L (137-145) 03/07/16 04:53 Potassium 2.9 mmol/L (3.6-5.0) L* 03/07/16 04:53 Chloride 114.1 mmol/L (98-107) H 03/07/16 04:53 Carbon Dioxide 19 mmol/L (22-30) L 03/07/16 04:53 Anion Gap 15 mmol/L 03/07/16 04:53 BUN 7 mg/dL (7-17) 03/07/16 04:53 Creatinine 0.8 mg/dL (0.7-1.2) 03/07/16 04:53 Estimated GFR > 60 ml/min 03/07/16 04:53 BUN/Creatinine Ratio 8.75 % 03/07/16 04:53 Glucose 140 mg/dL (65-100) H 03/07/16 04:53 POC Glucose 143 (70-105) H 03/07/16 05:43 Lactic Acid 1.7 mmol/L (0.7-2.0) 03/03/16 02:43 Calcium 7.8 mg/dL (8.4-10.2) L 03/07/16 04:53 Phosphorus 2.5 mg/dL (2.5-4.5) D 03/07/16 04:53 Magnesium 1.8 mg/dL (1.7-2.3) 03/07/16 04:53 Total Bilirubin 1.4 mg/dL (0.1-1.2) H 03/05/16 07:39 AST 38 units/L (5-40) 03/05/16 07:39 ALT 17 units/L (7-56) 03/05/16 07:39 Alkaline Phosphatase 105 units/L (35-129) 03/05/16 07:39 Ammonia 55.0 umol/L (25-60) 03/07/16 04:53 Total Creatine Kinase 42 units/L (30-135) 03/02/16 18:35 CK-MB (CK-2) < 1.0 ng/mL (0.0-4.0) 03/02/16 18:35 CK-MB (CK-2) Rel Index 2.3 (0-4) 03/02/16 18:35 Troponin T < 0.010 ng/mL (0.00-0.029) 03/02/16 18:35 Total Protein 5.9 g/dL (6.3-8.2) L 03/05/16 07:39 Albumin 2.4 g/dL (3.9-5) L 03/05/16 07:39 Albumin/Globulin Ratio 0.7 % 03/05/16 07:39 TSH 0.427 mlU/mL (0.270-4.200) 03/04/16 19:38 Free T4 1.36 ng/dL (0.76-1.46) 03/02/16 18:35 Urine Color Vera (Yellow) 03/02/16 20:44 Urine Turbidity Clear (Clear) 03/02/16 20:44 Urine pH 7.0 (5.0-7.0) 03/02/16 20:44 Ur Specific [place] 1.023 (1.003-1.030) 03/02/16 20:44 Urine Protein 30 mg/dl mg/dL (Negative) 03/02/16 20:44 Urine Glucose (UA) Neg mg/dL (Negative) 03/02/16 20:44 Urine Ketones 20 mg/dL (Negative) 03/02/16 20:44 Urine Blood Neg (Negative) 03/02/16 20:44 Urine Nitrite Neg (Negative) 03/02/16 20:44 Urine Bilirubin Mod (Negative) 03/02/16 20:44 Urine Ictotest Positive (Negative) 03/02/16 20:44 Urine Urobilinogen 4.0 mg/dL (<2.0) 03/02/16 20:44 Ur Leukocyte Esterase Tr (Negative) 03/02/16 20:44 Urine WBC (Auto) < 1.0 /HPF (0.0-6.0) 03/02/16 20:44 Urine RBC (Auto) 1.0 /HPF (0.0-6.0) 03/02/16 20:44 U Epithel Cells (Auto) 3.0 /HPF (0-13.0) 03/02/16 20:44 Urine Bacteria (Auto) 1+ /HPF (Negative) 03/02/16 20:44 Urine Mucus 3+ /HPF 03/02/16 20:44
[2016-03-07] MEDS: ATIVAN IV PRN (14:08)
--- NOTE | 2016-03-07 17:28 | Progress Note ---
Assessment and Plan Current antibiotics: Zosyn 4.5 grams IV q8h 03/03--> Previous antibiotics: Levaquin 750 mg IV q24h 03/03-03/06 ASSESSMENT: Edith Coelho is a 60-year-old female with hypertension, obstructive sleep apnea and COPD who was admitted to [facility] on 03/02/16 with a one-month history of decreased appetite and increasing weakness. She has had a persistent leukocytosis. Problem list: 1. Leukocytosis -Likely reactive secondary to whatever is causing her encephalopathy: ? ETOH withdrawal, etc. -Rule out infection although work up negative to date and no obvious source on exam 2. 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 Gram negative pyuria -Urinalysis not suggestive of UTI with no pyuria 4. Hypokalemia -? secondary to hydrochlorothiazide PLAN: 1. Stop antibiotics at this point and follow (she has still been receiving Zosyn which I will stop today). 2. Work up for encephalopathy as per neuro 3. If leukocytosis persists and no etiology uncovered may need to consider a lumbar puncture 4. Replete K as per the hospitalist team Bayron Avitia MD [facility] Office: [phone] Subjective Date of service: 03/07/16 Principal diagnosis: Leukocytosis Interval history: Remains very confused and still somewhat agitated. Objective - Exam Narrative Exam: GENERAL: Well-developed, thin female somewhat agitated and confused. HEAD: Normocephalic. No lesions seen. EYES: Pupils are equal reactive to light and accommodation. There is no scleral icterus. Optic fundi are not examined. There is bilateral arcus senilis. EARS: Tympanic membranes are normal. THROAT: Oropharynx is normal with no evidence of oral candidiasis or pharyngitis. Poor dentition but no obvious dental infection seen. Some bleeding from the upper lip. NECK: Supple. No enlargement of the thyroid gland. No significant cervical lymphadenopathy. No jugular venous distention at 30. LUNGS: Clear with no adventitious sounds. HEART: Regular rate. S1 and S2 are normal. There are no murmurs, gallops, clicks or rubs heard. ABDOMEN: Soft, slightly distended and mildly, diffusdely tender although she yells when she is touched anywhere. Liver and spleen are not palpably enlarged or tender. No palpable masses. No ascites. Bowel sounds are normoactive. RECTAL: Not examined EXTREMITIES: No rash, peripheral lymphadenopathy, clubbing or edema. : Diaper in place. NEUROLOGIC: No focal findings. Agitated and confused. No asterixis. - Constitutional Vitals: Vital Signs Temp Pulse Resp BP Pulse Ox 97.5 F L 82 18 170/109 98 03/07/16 12:00 03/07/16 12:00 03/07/16 12:00 03/07/16 12:28 03/07/16 12:00 Temperature -Last 24 Hours Temperature 97.5 F Temperature 97.5 F Temperature 97.5 F Temperature 97.7 F Temperature 97.4 F - Labs CBC & Chem 7: 03/07/16 04:53 03/07/16 04:53 Labs: Abnormal lab results Microbiology 03/04/16 09:18 Peripheral/Venous Blood Culture - Preliminary NO GROWTH AFTER 72 HOURS 03/04/16 09:01 Peripheral/Venous Blood Culture - Preliminary NO GROWTH AFTER 72 HOURS 03/04/16 Unknown Urine,Clean Catch Urine Culture - Final Escherichia Coli
[2016-03-07] MEDS ORDERED: KIONEX PO ONE (23:39)
[2016-03-08] MEDS: ATIVAN IV PRN ×2 (01:06→15:51)
[2016-03-08 05:28] LABS: Mean Corpuscular HGB Conc 32 % (30-34); Mean Corpuscular Hemoglobin 31 pg (28-32); Mean Corpuscular Volume 97 fl (79-97); Platelet Count 349 K/mm3 (140-440); Red Blood Count 3.18 M/mm3 (3.65-5.03); Red Cell Distribution Width 16.8 % (13.2-15.2)
[2016-03-08 05:34] LABS: White Blood Count 32.2 K/mm3 (4.5-11.0)
[2016-03-08 05:48] LABS: BUN/Creatinine Ratio 7.5; Calcium 8.6 mg/dL (8.4-10.2); Chloride 126.3 mmol/L (98-107)
[2016-03-08 06:02] LABS: Potassium 6.1 mmol/L (3.6-5.0)
[2016-03-08] MEDS: HEPARIN SUB-Q SCH ×3 (06:12→22:36)
[2016-03-08] MEDS ORDERED: CALCIUM GLUCONATE 1,000 MG in NACL 0.9% 100 ML IV STA (07:22)
[2016-03-08] MEDS ORDERED: D50W (25GM) IV ONE (08:00)
[2016-03-08] MEDS: SODIUM BICARBONATE FEEDTUBE SCH (08:09)
[2016-03-08] MEDS: KIONEX PO SCH ×2 (08:10→14:08)
[2016-03-08] MEDS: VITAMIN B-1 100 MG in NACL 0.9% 50 ML IV SCH (09:03)
[2016-03-08] MEDS: FOLVITE PO SCH (09:03)
--- NOTE | 2016-03-08 09:44 | Progress Note ---
Assessment and Plan Current antibiotics: None Previous antibiotics: Zosyn 4.5Gr IV q8Hr 03/03 - 03/07 Levaquin 750 mg IV q24h 03/03-03/06 ASSESSMENT: Edith Coelho is a 60-year-old female with hypertension, obstructive sleep apnea and COPD who was admitted to [facility] on 03/02/16 with a one-month history of decreased appetite and increasing weakness. She has had a persistent leukocytosis. Problem list: 1. Leukocytosis -Marked elevation to 32,000. -Likely reactive secondary to whatever is causing her encephalopathy: ? ETOH withdrawal, etc. -Rule out infection although work up negative to date and no obvious source on exam 2. 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 Gram negative pyuria -Urinalysis not suggestive of UTI with no pyuria 4. Hypokalemia -? secondary to hydrochlorothiazide PLAN: 1. For now; off antibiotics. 2. Work up for encephalopathy as per neuro 3. If leukocytosis persists and no etiology uncovered may need to consider a lumbar puncture as well as other "infection scans" - ie: CT abdomen and pelvis 4. Replete K as per the hospitalist team Subjective Date of service: 03/08/16 Principal diagnosis: Leukocytosis Interval history: Barely arousable. Having PICC placed. Objective - Exam Narrative Exam: GENERAL: Well-developed, thin female. Mery out with noxious stimuli. HEAD: Normocephalic. No lesions seen. EYES: Pupils are equal reactive to light and accommodation. There is no scleral icterus. Optic fundi are not examined. There is bilateral arcus senilis. EARS: External ears without redness. THROAT: Oropharynx is not well seen. Markedly dry membranes. NECK: Supple. No enlargement of the thyroid gland. No significant cervical lymphadenopathy. No jugular venous distention at 30. LUNGS: Pooe effort. No obvious rales. HEART: Regular rate. S1 and S2 are normal. There are no murmurs, gallops, clicks or rubs heard. ABDOMEN: Soft. Liver and spleen are not palpably enlarged or tender. No palpable masses. No ascites. Bowel sounds are normoactive. RECTAL: Not examined EXTREMITIES: No rash, peripheral lymphadenopathy, clubbing or edema. : Diaper in place. NEUROLOGIC: Awakes to noxious stimuli. - Constitutional Vitals: Vital Signs Temp Pulse Resp BP Pulse Ox 97.4 F L 85 22 116/88 100 03/08/16 07:00 03/08/16 07:00 03/08/16 07:00 03/08/16 07:00 03/08/16 07:00 Temperature -Last 24 Hours Temperature 97.4 F Temperature 97.6 F Temperature 96.7 F Temperature 97.1 F Temperature 98.2 F Temperature 97.5 F - Labs CBC & Chem 7: 03/08/16 05:09 03/08/16 05:09 Labs: Abnormal lab results 03/07/16 03/08/16 03/08/16 Range/Units 22:20 05:09 05:09 WBC 32.2 H (4.5-11.0) K/mm3 RBC 3.18 L (3.65-5.03) M/mm3 Hgb 10.0 L (10.1-14.3) gm/dl RDW 16.8 H (13.2-15.2) % Sodium 155 H D (137-145) mmol/L Potassium 6.3 H* D 6.1 H* (3.6-5.0) mmol/L Carbon Dioxide 18 L (22-30) mmol/L Creatinine 1.6 H D (0.7-1.2) mg/dL Glucose 213 H (65-100) mg/dL
--- NOTE | 2016-03-08 10:56 | XRay Report ---
AP CHEST History: Right PICC placement Findings: Compared to 01/15/16. A right arm PICC has been inserted which terminates in the mid to lower SVC. A feeding tube has also been inserted which is followed to the mid stomach. Heart and mediastinal structures are within normal limits. The lungs are clear. No evidence for infiltrate, pleural effusion or pneumothorax. Impression: Adequate placement of the right arm PICC. No acute process is noted in the chest.
[2016-03-08] MEDS ORDERED: PROVENTIL IH PRN (14:06)
[2016-03-08] MEDS: TENORMIN PO SCH (14:09)
[2016-03-08] MEDS: ZESTRIL PO SCH (14:10)
[2016-03-08] MEDS: HCTZ PO SCH (14:11)
[2016-03-08] MEDS: D5W 1,000 ML IV SCH (14:17)
--- NOTE | 2016-03-08 16:43 | Progress Note ---
Assessment and Plan Assessment and plan: Acute encephalopathy with confusion. Etiology unclear. Neurocheck every [address] head negative. Ordered MRI Brain. Neurology consulted and she evaluated patient. MRI brain not done because she was very agitated. Will try again. Hyperammonia. Improved, after starting lactulose . Hypertension. Continue Atenolol, lisinopril, clonidine prn. Alcohol withdrawal syndrome. On [facility] protocol Alcohol abuse. said she drinks a lot. Last drink 2 weeks ago. Continue [facility] protocol, Thiamine, folic acid, multivitamin. Full code status Leukocytosis. Etiology unclear. Initially started on IV antibiotics possible infection but this has been discontinued ID physician follow off antibiotics is recommended. Leukocytosis is worse today at 32.2 continue to monitor Hypomagnesemia. Replaced iv. Now resolved Hypokalemia. This has been persistent even after getting large doses of potassium, now hyperkalemic. Hyperkalemia. Insulin iv 50% dextrose, Kayexalate and recheck Hypophosphatemia. resolved after replacement. Full code status. History Interval history: Still Confused, still agitated on and off, generalized weakness poor appetite. MRI not done because of agitation Hospitalist Physical - Physical exam Narrative exam: Narrative exam: Gen: Not in acute distress, ill looking,emaciated, [place] HEENT: Atraumatic Neck :supple, no JVD Lungs: Lungs clear to auscultation bilaterally, no crackles or wheeze Heart: S1 and S2 regular, no murmurs, rubs or gallop Abdomen:soft, nontender, nondistended, normal bowel sounds Ext: No edema, no clubbing or cyanosis Neuro: Lethargic, confused. moves all ext - Constitutional Vitals: Temp Pulse Resp BP Pulse Ox 97.4 F L 85 22 143/110 99 03/08/16 07:00 03/08/16 07:00 03/08/16 07:00 03/08/16 14:10 03/08/16 14:05 General appearance: Present: mild distress, disheveled, malodorous Results - Labs CBC & Chem 7: 03/08/16 05:09 03/08/16 05:09 Labs: Laboratory Last Values WBC 32.2 K/mm3 (4.5-11.0) H 03/08/16 05:09 RBC 3.18 M/mm3 (3.65-5.03) L 03/08/16 05:09 Hgb 10.0 gm/dl (10.1-14.3) L 03/08/16 05:09 Hct 31.0 % (30.3-42.9) 03/08/16 05:09 MCV 97 fl (79-97) 03/08/16 05:09 MCH 31 pg (28-32) 03/08/16 05:09 MCHC 32 % (30-34) 03/08/16 05:09 RDW 16.8 % (13.2-15.2) H 03/08/16 05:09 Plt Count 349 K/mm3 (140-440) 03/08/16 05:09 Lymph % (Auto) 11.1 % (13.4-35.0) L 03/02/16 18:35 [place] % (Auto) 6.1 % (0.0-7.3) 03/02/16 18:35 Eos % (Auto) 0.6 % (0.0-4.3) 03/02/16 18:35 Baso % (Auto) 0.7 % (0.0-1.8) 03/02/16 18:35 Lymph # 1.8 K/mm3 (1.2-5.4) 03/02/16 18:35 [place] # 1.0 K/mm3 (0.0-0.8) H 03/02/16 18:35 Eos # 0.1 K/mm3 (0.0-0.4) 03/02/16 18:35 Baso # 0.1 K/mm3 (0.0-0.1) 03/02/16 18:35 Seg Neutrophils % 81.5 % (40.0-70.0) H 03/02/16 18:35 Seg Neutrophils # 13.0 K/mm3 (1.8-7.7) H 03/02/16 18:35 Sodium 155 mmol/L (137-145) H D 03/08/16 05:09 Potassium 6.1 mmol/L (3.6-5.0) H* 03/08/16 05:09 Chloride 114.1 mmol/L (98-107) H 03/07/16 04:53 Carbon Dioxide 18 mmol/L (22-30) L 03/08/16 05:09 Anion Gap 15 mmol/L 03/07/16 04:53 BUN 12 mg/dL (7-17) 03/08/16 05:09 Creatinine 1.6 mg/dL (0.7-1.2) H D 03/08/16 05:09 Estimated GFR 40 ml/min 03/08/16 05:09 BUN/Creatinine Ratio 7.50 % 03/08/16 05:09 Glucose 213 mg/dL (65-100) H 03/08/16 05:09 POC Glucose 204 (70-105) H 03/08/16 09:11 Lactic Acid 1.7 mmol/L (0.7-2.0) 03/03/16 02:43 Calcium 8.6 mg/dL (8.4-10.2) 03/08/16 05:09 Phosphorus 2.5 mg/dL (2.5-4.5) D 03/07/16 04:53 Magnesium 1.8 mg/dL (1.7-2.3) 03/07/16 04:53 Total Bilirubin 1.4 mg/dL (0.1-1.2) H 03/05/16 07:39 AST 38 units/L (5-40) 03/05/16 07:39 ALT 17 units/L (7-56) 03/05/16 07:39 Alkaline Phosphatase 105 units/L (35-129) 03/05/16 07:39 Ammonia 55.0 umol/L (25-60) 03/07/16 04:53 Total Creatine Kinase 42 units/L (30-135) 03/02/16 18:35 CK-MB (CK-2) < 1.0 ng/mL (0.0-4.0) 03/02/16 18:35 CK-MB (CK-2) Rel Index 2.3 (0-4) 03/02/16 18:35 Troponin T < 0.010 ng/mL (0.00-0.029) 03/02/16 18:35 Total Protein 5.9 g/dL (6.3-8.2) L 03/05/16 07:39 Albumin 2.4 g/dL (3.9-5) L 03/05/16 07:39 Albumin/Globulin Ratio 0.7 % 03/05/16 07:39 TSH 0.427 mlU/mL (0.270-4.200) 03/04/16 19:38 Free T4 1.36 ng/dL (0.76-1.46) 03/02/16 18:35 Urine Color Vera (Yellow) 03/02/16 20:44 Urine Turbidity Clear (Clear) 03/02/16 20:44 Urine pH 7.0 (5.0-7.0) 03/02/16 20:44 Ur Specific [place] 1.023 (1.003-1.030) 03/02/16 20:44 Urine Protein 30 mg/dl mg/dL (Negative) 03/02/16 20:44 Urine Glucose (UA) Neg mg/dL (Negative) 03/02/16 20:44 Urine Ketones 20 mg/dL (Negative) 03/02/16 20:44 Urine Blood Neg (Negative) 03/02/16 20:44 Urine Nitrite Neg (Negative) 03/02/16 20:44 Urine Bilirubin Mod (Negative) 03/02/16 20:44 Urine Ictotest Positive (Negative) 03/02/16 20:44 Urine Urobilinogen 4.0 mg/dL (<2.0) 03/02/16 20:44 Ur Leukocyte Esterase Tr (Negative) 03/02/16 20:44 Urine WBC (Auto) < 1.0 /HPF (0.0-6.0) 03/02/16 20:44 Urine RBC (Auto) 1.0 /HPF (0.0-6.0) 03/02/16 20:44 U Epithel Cells (Auto) 3.0 /HPF (0-13.0) 03/02/16 20:44 Urine Bacteria (Auto) 1+ /HPF (Negative) 03/02/16 20:44 Urine Mucus 3+ /HPF 03/02/16 20:44
[2016-03-08 19:14] LABS: BUN/Creatinine Ratio 8.33; Calcium 8.8 mg/dL (8.4-10.2); Chloride 126.2 mmol/L (98-107); Potassium 4.8 mmol/L (3.6-5.0)
[2016-03-08] MEDS: PERCOCET 5/325 PO PRN (23:59)
[2016-03-09] MEDS: D5W 1,000 ML IV SCH ×3 (06:32→23:54)
[2016-03-09] MEDS: HEPARIN SUB-Q SCH ×2 (06:34→13:41)
[2016-03-09] MEDS: ATIVAN IV PRN ×4 (07:42→16:14)
[2016-03-09 08:13] LABS: Hematocrit 28.4 % (30.3-42.9); Mean Corpuscular HGB Conc 32 % (30-34); Mean Corpuscular Hemoglobin 31 pg (28-32); Mean Corpuscular Volume 97 fl (79-97); Platelet Count 270 K/mm3 (140-440); Red Blood Count 2.93 M/mm3 (3.65-5.03); Red Cell Distribution Width 17.4 % (13.2-15.2)
[2016-03-09 08:25] LABS: BUN/Creatinine Ratio 9.47; Calcium 8.2 mg/dL (8.4-10.2); Potassium 4.5 mmol/L (3.6-5.0)
[2016-03-09 08:29] LABS: White Blood Count 29.9 K/mm3 (4.5-11.0)
--- NOTE | 2016-03-09 09:58 | Progress Note ---
Assessment and Plan Current antibiotics: None Previous antibiotics: Zosyn 4.5Gr IV q8Hr 03/03 - 03/07 Levaquin 750 mg IV q24h 03/03-03/06 ASSESSMENT: Edith Coelho is a 60-year-old female with hypertension, obstructive sleep apnea and COPD who was admitted to [facility] on 03/02/16 with a one-month history of decreased appetite and increasing weakness. She has had a persistent leukocytosis. Problem list: 1. Leukocytosis -Marked elevation to 32,000 ( 03/08). -Likely reactive secondary to whatever is causing her encephalopathy: ? ETOH withdrawal, etc. -Rule out infection although work up negative to date and no obvious source on exam 2. 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 Gram negative pyuria -Urinalysis not suggestive of UTI with no pyuria 4. Hypokalemia -? secondary to hydrochlorothiazide PLAN: 1. For now; off antibiotics. 2. Work up for encephalopathy as per neuro 3. If leukocytosis persists and no etiology uncovered may need to consider a lumbar puncture as well as other "infection scans" - ie: CT abdomen and pelvis 4. Replete K as per the hospitalist team Subjective Date of service: 03/09/16 Principal diagnosis: Leukocytosis Interval history: Awakes easily. Will not follow commands. Objective - Exam Narrative Exam: GENERAL: Well-developed, thin female. Mery out with noxious stimuli. HEAD: Normocephalic. No lesions seen. EYES: Pupils are equal reactive to light and accommodation. There is no scleral icterus. Optic fundi are not examined. There is bilateral arcus senilis. EARS: External ears without redness. THROAT: Oropharynx is not well seen. Markedly dry membranes. NECK: Supple. No enlargement of the thyroid gland. No significant cervical lymphadenopathy. No jugular venous distention at 30. LUNGS: Poor effort. No obvious rales. HEART: Regular rate. S1 and S2 are normal. There are no murmurs, gallops, clicks or rubs heard. ABDOMEN: Soft. Liver and spleen are not palpably enlarged or tender. No palpable masses. No ascites. Bowel sounds are normoactive. +NG. RECTAL: Not examined EXTREMITIES: No rash, peripheral lymphadenopathy, clubbing or edema. : Diaper in place. NEUROLOGIC: Awakes to noxious stimuli. - Constitutional Vitals: Vital Signs Temp Pulse Resp BP Pulse Ox 97.7 F 89 20 112/78 99 03/09/16 06:50 03/09/16 06:50 03/09/16 06:50 03/09/16 06:50 03/09/16 06:50 Temperature -Last 24 Hours Temperature 97.7 F Temperature 98.3 F Temperature 98.0 F Temperature 97.9 F Temperature 98.0 F - Labs CBC & Chem 7: 03/09/16 08:00 03/09/16 08:00 Labs: Abnormal lab results 03/08/16 03/08/16 03/08/16 Range/Units 09:11 16:28 17:27 WBC (4.5-11.0) K/mm3 RBC (3.65-5.03) M/mm3 Hgb (10.1-14.3) gm/dl Hct (30.3-42.9) % RDW (13.2-15.2) % Sodium 156 H (137-145) mmol/L Chloride 126.2 H (98-107) mmol/L Carbon Dioxide 19 L (22-30) mmol/L BUN (7-17) mg/dL Creatinine 1.8 H (0.7-1.2) mg/dL Glucose 175 H (65-100) mg/dL POC Glucose 204 H 130 H (70-105) Calcium (8.4-10.2) mg/dL 03/08/16 03/09/16 03/09/16 Range/Units 22:06 05:47 08:00 WBC 29.9 H (4.5-11.0) K/mm3 RBC 2.93 L (3.65-5.03) M/mm3 Hgb 9.0 L (10.1-14.3) gm/dl Hct 28.4 L (30.3-42.9) % RDW 17.4 H (13.2-15.2) % Sodium (137-145) mmol/L Chloride (98-107) mmol/L Carbon Dioxide (22-30) mmol/L BUN (7-17) mg/dL Creatinine (0.7-1.2) mg/dL Glucose (65-100) mg/dL POC Glucose 192 H 206 H (70-105) Calcium (8.4-10.2) mg/dL 03/09/16 Range/Units 08:00 WBC (4.5-11.0) K/mm3 RBC (3.65-5.03) M/mm3 Hgb (10.1-14.3) gm/dl Hct (30.3-42.9) % RDW (13.2-15.2) % Sodium 154 H (137-145) mmol/L Chloride 123.0 H (98-107) mmol/L Carbon Dioxide 21 L (22-30) mmol/L BUN 18 H (7-17) mg/dL Creatinine 1.9 H (0.7-1.2) mg/dL Glucose 179 H (65-100) mg/dL POC Glucose (70-105) Calcium 8.2 L (8.4-10.2) mg/dL
[2016-03-09] MEDS ORDERED: SIMPLE SYRUP FEEDTUBE PRN ×2 (10:06)
[2016-03-09] MEDS ORDERED: SODIUM BICARBONATE FEEDTUBE PRN (10:06)
[2016-03-09] MEDS ORDERED: PANCREAZE DR 10,500 UNIT FEEDTUBE PRN (10:06)
[2016-03-09] MEDS: VITAMIN B-1 FEEDTUBE SCH (10:58)
[2016-03-09] MEDS: TENORMIN PO SCH (10:58)
[2016-03-09] MEDS: FOLVITE PO SCH (10:58)
--- NOTE | 2016-03-09 15:53 | Progress Note ---
Assessment and Plan Assessment and plan: --Metabolic encephalopathy; Multifactorial continue supportive care, neurology following --Hyperammonia. The time of admission now completely resolved --Hypertension. Well controlled on Atenolol, lisinopril, clonidine prn. --Alcohol withdrawal syndrome. Continue CIWA protocol --Alcohol abuse. Continue CICT protocol, Thiamine, folic acid, multivitamin. --Alcohol withdrawal symptoms; CIWA protocol. --Electrolyte imbalances hypokalemia hypomagnesemia and hypophosphatemia; replenish per protocol and monitor levels --Full code status DC planning possible case management and medically stable Closely monitor the patient and adjust the management as needed History Interval history: Patient seen and evaluated in her room medical records reviewed No new events reported by the nursing staff Patient is lethargic minimally communicative on CIWA protocol Elevated sodium levels, on Dobbhoff feeds Family member at the bedside Vital signs reviewed, stable Hospitalist Physical - Constitutional Vitals: Temp Pulse Resp BP Pulse Ox 98.6 F 72 20 123/75 94 03/09/16 11:15 03/09/16 11:15 03/09/16 11:15 03/09/16 11:15 03/09/16 11:15 General appearance: Present: mild distress, cachectic, disheveled, other ( chronically ill looking) - EENT Eyes: Present: PERRL, EOM intact - Neck Neck: Present: supple, normal ROM - Respiratory Respiratory effort: normal Respiratory: bilateral: diminished, negative: rales, rhonchi, wheezing - Cardiovascular Rhythm: regular Heart Sounds: Present: S1 & S2 - Extremities Extremities: no ischemia, pulses intact, pulses symmetrical Peripheral Pulses: within normal limits - Abdominal General gastrointestinal: soft, non-tender, non-distended, normal bowel sounds - Integumentary Integumentary: Present: clear, warm - Psychiatric Psychiatric: appropriate mood/affect, agitated (confused) - Neurologic Neurologic: moves all extremities Results - Labs CBC & Chem 7: 03/09/16 08:00 03/09/16 08:00 Labs: Laboratory Last Values WBC 29.9 K/mm3 (4.5-11.0) H 03/09/16 08:00 RBC 2.93 M/mm3 (3.65-5.03) L 03/09/16 08:00 Hgb 9.0 gm/dl (10.1-14.3) L 03/09/16 08:00 Hct 28.4 % (30.3-42.9) L 03/09/16 08:00 MCV 97 fl (79-97) 03/09/16 08:00 MCH 31 pg (28-32) 03/09/16 08:00 MCHC 32 % (30-34) 03/09/16 08:00 RDW 17.4 % (13.2-15.2) H 03/09/16 08:00 Plt Count 270 K/mm3 (140-440) 03/09/16 08:00 Lymph % (Auto) 11.1 % (13.4-35.0) L 03/02/16 18:35 [place] % (Auto) 6.1 % (0.0-7.3) 03/02/16 18:35 Eos % (Auto) 0.6 % (0.0-4.3) 03/02/16 18:35 Baso % (Auto) 0.7 % (0.0-1.8) 03/02/16 18:35 Lymph # 1.8 K/mm3 (1.2-5.4) 03/02/16 18:35 [place] # 1.0 K/mm3 (0.0-0.8) H 03/02/16 18:35 Eos # 0.1 K/mm3 (0.0-0.4) 03/02/16 18:35 Baso # 0.1 K/mm3 (0.0-0.1) 03/02/16 18:35 Seg Neutrophils % 81.5 % (40.0-70.0) H 03/02/16 18:35 Seg Neutrophils # 13.0 K/mm3 (1.8-7.7) H 03/02/16 18:35 Sodium 154 mmol/L (137-145) H 03/09/16 08:00 Potassium 4.5 mmol/L (3.6-5.0) 03/09/16 08:00 Chloride 123.0 mmol/L (98-107) H 03/09/16 08:00 Carbon Dioxide 21 mmol/L (22-30) L 03/09/16 08:00 Anion Gap 15 mmol/L 03/09/16 08:00 BUN 18 mg/dL (7-17) H 03/09/16 08:00 Creatinine 1.9 mg/dL (0.7-1.2) H 03/09/16 08:00 Estimated GFR 33 ml/min 03/09/16 08:00 BUN/Creatinine Ratio 9.47 % 03/09/16 08:00 Glucose 179 mg/dL (65-100) H 03/09/16 08:00 POC Glucose 152 (70-105) H 03/09/16 11:33 Lactic Acid 1.7 mmol/L (0.7-2.0) 03/03/16 02:43 Calcium 8.2 mg/dL (8.4-10.2) L 03/09/16 08:00 Phosphorus 2.5 mg/dL (2.5-4.5) D 03/07/16 04:53 Magnesium 1.8 mg/dL (1.7-2.3) 03/07/16 04:53 Total Bilirubin 1.4 mg/dL (0.1-1.2) H 03/05/16 07:39 AST 38 units/L (5-40) 03/05/16 07:39 ALT 17 units/L (7-56) 03/05/16 07:39 Alkaline Phosphatase 105 units/L (35-129) 03/05/16 07:39 Ammonia 55.0 umol/L (25-60) 03/07/16 04:53 Total Creatine Kinase 42 units/L (30-135) 03/02/16 18:35 CK-MB (CK-2) < 1.0 ng/mL (0.0-4.0) 03/02/16 18:35 CK-MB (CK-2) Rel Index 2.3 (0-4) 03/02/16 18:35 Troponin T < 0.010 ng/mL (0.00-0.029) 03/02/16 18:35 Total Protein 5.9 g/dL (6.3-8.2) L 03/05/16 07:39 Albumin 2.4 g/dL (3.9-5) L 03/05/16 07:39 Albumin/Globulin Ratio 0.7 % 03/05/16 07:39 TSH 0.427 mlU/mL (0.270-4.200) 03/04/16 19:38 Free T4 1.36 ng/dL (0.76-1.46) 03/02/16 18:35 Urine Color Vera (Yellow) 03/02/16 20:44 Urine Turbidity Clear (Clear) 03/02/16 20:44 Urine pH 7.0 (5.0-7.0) 03/02/16 20:44 Ur Specific [place] 1.023 (1.003-1.030) 03/02/16 20:44 Urine Protein 30 mg/dl mg/dL (Negative) 03/02/16 20:44 Urine Glucose (UA) Neg mg/dL (Negative) 03/02/16 20:44 Urine Ketones 20 mg/dL (Negative) 03/02/16 20:44 Urine Blood Neg (Negative) 03/02/16 20:44 Urine Nitrite Neg (Negative) 03/02/16 20:44 Urine Bilirubin Mod (Negative) 03/02/16 20:44 Urine Ictotest Positive (Negative) 03/02/16 20:44 Urine Urobilinogen 4.0 mg/dL (<2.0) 03/02/16 20:44 Ur Leukocyte Esterase Tr (Negative) 03/02/16 20:44 Urine WBC (Auto) < 1.0 /HPF (0.0-6.0) 03/02/16 20:44 Urine RBC (Auto) 1.0 /HPF (0.0-6.0) 03/02/16 20:44 U Epithel Cells (Auto) 3.0 /HPF (0-13.0) 03/02/16 20:44 Urine Bacteria (Auto) 1+ /HPF (Negative) 03/02/16 20:44 Urine Mucus 3+ /HPF 03/02/16 20:44
[2016-03-10] MEDS: PERCOCET 5/325 PO PRN (00:01)
[2016-03-10] MEDS: HEPARIN SUB-Q SCH ×4 (00:02→21:33)
[2016-03-10] MEDS: ATIVAN IV PRN (00:02)
[2016-03-10] MEDS: NOVOLOG SUB-Q SCH ×4 (00:07→18:17)
[2016-03-10 06:37] LABS: Hematocrit 26.4 % (30.3-42.9); Hemoglobin 8.7 gm/dl (10.1-14.3); Mean Corpuscular HGB Conc 33 % (30-34); Mean Corpuscular Hemoglobin 32 pg (28-32); Mean Corpuscular Volume 98 fl (79-97); Platelet Count 228 K/mm3 (140-440); Red Cell Distribution Width 17.1 % (13.2-15.2)
[2016-03-10 06:40] LABS: White Blood Count 22.8 K/mm3 (4.5-11.0)
[2016-03-10 06:56] LABS: BUN/Creatinine Ratio 13.75; Calcium 7.7 mg/dL (8.4-10.2); Potassium 4.1 mmol/L (3.6-5.0)
[2016-03-10 08:20] LABS: Basophils % (Manual) 0 % (0.0-1.8); Blastocytes % (Manual) 0 %
[2016-03-10 08:21] LABS: Anisocytosis 1+
[2016-03-10 08:22] LABS: Diff Status Complete
--- NOTE | 2016-03-10 10:23 | Progress Note ---
Assessment and Plan Assessment and plan: --Metabolic encephalopathy; Workup so far negative, we'll obtain MRI, consider lumbar puncture Neurology following, new supportive care --Dysphagia/failed swallow evaluation, continue Dobbhoff feedings Speech therapist recommended PEG placement We will consult GI for possible PEG placement tomorrow --Acute renal failure probably secondary to vasomotor nephropathy Creatinine level trending down, closely monitor renal function avoid nephrotoxic medications consider nephrology evaluation if needed --Leukocytosis. Nonspecific, trending down --Positive urine cultures for Escherichia coli, ID following Recommend monitor off antibiotics --Hyponatremia. Trending down closely monitor --Hypertension. Well controlled on Atenolol, lisinopril, clonidine prn. --Alcohol withdrawal symptoms; CIWA protocol. --Electrolyte imbalances replenish per protocol and monitor levels --Full code status --DVT prophylaxis with heparin DC planning possible case management and medically stable Closely monitor the patient and adjust the management as needed History Interval history: Patient seen and evaluated this morning medical records reviewed No new events reported by nursing staff, patient awake and lethargic and noncommunicative Cachectic and chronically ill looking Not in acute distress at the bedside Hospitalist Physical - Constitutional Vitals: Temp Pulse Resp BP Pulse Ox 98.5 F 76 16 99/63 95 03/10/16 07:00 03/10/16 07:00 03/10/16 07:00 03/10/16 07:00 03/10/16 07:00 General appearance: Present: mild distress, cachectic, disheveled, other ( chronically ill looking) - EENT Eyes: Present: PERRL, EOM intact - Neck Neck: Present: supple, normal ROM - Respiratory Respiratory effort: normal Respiratory: bilateral: diminished, negative: rales, rhonchi, wheezing - Cardiovascular Rhythm: regular Heart Sounds: Present: S1 & S2 - Extremities Extremities: no ischemia, pulses intact, pulses symmetrical Peripheral Pulses: within normal limits - Abdominal General gastrointestinal: soft, non-tender, non-distended, normal bowel sounds - Integumentary Integumentary: Present: clear, warm - Psychiatric Psychiatric: other (minimally communicative) - Neurologic Neurologic: CNII-XII intact, moves all extremities Results - Labs CBC & Chem 7: 03/10/16 Unknown 03/10/16 Unknown Labs: Laboratory Last Values WBC 22.8 K/mm3 (4.5-11.0) H 03/10/16 Unknown RBC 2.70 M/mm3 (3.65-5.03) L 03/10/16 Unknown Hgb 8.7 gm/dl (10.1-14.3) L 03/10/16 Unknown Hct 26.4 % (30.3-42.9) L 03/10/16 Unknown MCV 98 fl (79-97) H 03/10/16 Unknown MCH 32 pg (28-32) 03/10/16 Unknown MCHC 33 % (30-34) 03/10/16 Unknown RDW 17.1 % (13.2-15.2) H 03/10/16 Unknown Plt Count 228 K/mm3 (140-440) 03/10/16 Unknown Lymph % (Auto) 11.1 % (13.4-35.0) L 03/02/16 18:35 [place] % (Auto) 6.1 % (0.0-7.3) 03/02/16 18:35 Eos % (Auto) 0.6 % (0.0-4.3) 03/02/16 18:35 Baso % (Auto) 0.7 % (0.0-1.8) 03/02/16 18:35 Lymph # 1.8 K/mm3 (1.2-5.4) 03/02/16 18:35 [place] # 1.0 K/mm3 (0.0-0.8) H 03/02/16 18:35 Eos # 0.1 K/mm3 (0.0-0.4) 03/02/16 18:35 Baso # 0.1 K/mm3 (0.0-0.1) 03/02/16 18:35 Add Manual Diff Complete 03/10/16 Unknown Total Counted 100 03/10/16 Unknown Seg Neutrophils % 81.5 % (40.0-70.0) H 03/02/16 18:35 Seg Neuts % (Manual) 78.0 % (40.0-70.0) H 03/10/16 Unknown Band Neutrophils % 0 % 03/10/16 Unknown Lymphocytes % (Manual) 12.0 % (13.4-35.0) L 03/10/16 Unknown Reactive Lymphs % (Man) 0 % 03/10/16 Unknown Monocytes % (Manual) 5.0 % (0.0-7.3) 03/10/16 Unknown Eosinophils % (Manual) 4.0 % (0.0-4.3) 03/10/16 Unknown Basophils % (Manual) 0 % (0.0-1.8) 03/10/16 Unknown Metamyelocytes % 1.0 % 03/10/16 Unknown Myelocytes % 0 % 03/10/16 Unknown Promyelocytes % 0 % 03/10/16 Unknown Blast Cells % 0 % 03/10/16 Unknown Nucleated RBC % Not Reportable 03/10/16 Unknown Seg Neutrophils # 13.0 K/mm3 (1.8-7.7) H 03/02/16 18:35 Seg Neutrophils # Man 17.8 K/mm3 (1.8-7.7) H 03/10/16 Unknown Band Neutrophils # 0.0 K/mm3 03/10/16 Unknown Lymphocytes # (Manual) 2.7 K/mm3 (1.2-5.4) 03/10/16 Unknown Abs React Lymphs (Man) 0.0 K/mm3 03/10/16 Unknown Monocytes # (Manual) 1.1 K/mm3 (0.0-0.8) H 03/10/16 Unknown Eosinophils # (Manual) 0.9 K/mm3 (0.0-0.4) H 03/10/16 Unknown Basophils # (Manual) 0.0 K/mm3 (0.0-0.1) 03/10/16 Unknown Metamyelocytes # 0.2 K/mm3 03/10/16 Unknown Myelocytes # 0.0 K/mm3 03/10/16 Unknown Promyelocytes # 0.0 K/mm3 03/10/16 Unknown Blast Cells # 0.0 K/mm3 03/10/16 Unknown WBC Morphology Not Reportable 03/10/16 Unknown Hypersegmented Neuts Not Reportable 03/10/16 Unknown Hyposegmented Neuts Not Reportable 03/10/16 Unknown Hypogranular Neuts Not Reportable 03/10/16 Unknown Smudge Cells Not Reportable 03/10/16 Unknown Toxic Granulation Not Reportable 03/10/16 Unknown Toxic Vacuolation Not Reportable 03/10/16 Unknown Dohle Bodies Not Reportable 03/10/16 Unknown Pelger-Huet Anomaly Not Reportable 03/10/16 Unknown Betty Rods Not Reportable 03/10/16 Unknown Platelet Estimate Appears normal 03/10/16 Unknown Clumped Platelets Not Reportable 03/10/16 Unknown Plt Clumps, EDTA Not Reportable 03/10/16 Unknown Large Platelets Not Reportable 03/10/16 Unknown Giant Platelets Not Reportable 03/10/16 Unknown Platelet Satelliting Not Reportable 03/10/16 Unknown Plt Morphology Comment Not Reportable 03/10/16 Unknown RBC Morphology Not Reportable 03/10/16 Unknown Dimorphic RBCs Not Reportable 03/10/16 Unknown Polychromasia Not Reportable 03/10/16 Unknown Hypochromasia Not Reportable 03/10/16 Unknown Poikilocytosis Not Reportable 03/10/16 Unknown Anisocytosis 1+ 03/10/16 Unknown Microcytosis Not Reportable 03/10/16 Unknown Macrocytosis Not Reportable 03/10/16 Unknown Spherocytes Not Reportable 03/10/16 Unknown Pappenheimer Bodies Not Reportable 03/10/16 Unknown Sickle Cells Not Reportable 03/10/16 Unknown Target Cells Not Reportable 03/10/16 Unknown Tear Drop Cells Not Reportable 03/10/16 Unknown Ovalocytes Not Reportable 03/10/16 Unknown Helmet Cells Not Reportable 03/10/16 Unknown [place] Bodies Not Reportable 03/10/16 Unknown [place] Rings Not Reportable 03/10/16 Unknown [place] Cells Not Reportable 03/10/16 Unknown Bite Cells Not Reportable 03/10/16 Unknown Crenated Cell Not Reportable 03/10/16 Unknown Elliptocytes Not Reportable 03/10/16 Unknown Acanthocytes (Spur) Not Reportable 03/10/16 Unknown Rouleaux Not Reportable 03/10/16 Unknown Hemoglobin C Crystals Not Reportable 03/10/16 Unknown Schistocytes Not Reportable 03/10/16 Unknown Malaria parasites Not Reportable 03/10/16 Unknown Matthew Bodies Not Reportable 03/10/16 Unknown Hem Pathologist Commnt No 03/10/16 Unknown Sodium 147 mmol/L (137-145) H 03/10/16 Unknown Potassium 4.1 mmol/L (3.6-5.0) 03/10/16 Unknown Chloride 115.0 mmol/L (98-107) H 03/10/16 Unknown Carbon Dioxide 20 mmol/L (22-30) L 03/10/16 Unknown Anion Gap 16 mmol/L 03/10/16 Unknown BUN 22 mg/dL (7-17) H 03/10/16 Unknown Creatinine 1.6 mg/dL (0.7-1.2) H 03/10/16 Unknown Estimated GFR 40 ml/min 03/10/16 Unknown BUN/Creatinine Ratio 13.75 % 03/10/16 Unknown Glucose 142 mg/dL (65-100) H 03/10/16 Unknown POC Glucose 170 (70-105) H 03/10/16 06:16 Lactic Acid 1.7 mmol/L (0.7-2.0) 03/03/16 02:43 Calcium 7.7 mg/dL (8.4-10.2) L 03/10/16 Unknown Phosphorus 2.5 mg/dL (2.5-4.5) D 03/07/16 04:53 Magnesium 1.5 mg/dL (1.7-2.3) L 03/10/16 Unknown Total Bilirubin 1.4 mg/dL (0.1-1.2) H 03/05/16 07:39 AST 38 units/L (5-40) 03/05/16 07:39 ALT 17 units/L (7-56) 03/05/16 07:39 Alkaline Phosphatase 105 units/L (35-129) 03/05/16 07:39 Ammonia 55.0 umol/L (25-60) 03/07/16 04:53 Total Creatine Kinase 42 units/L (30-135) 03/02/16 18:35 CK-MB (CK-2) < 1.0 ng/mL (0.0-4.0) 03/02/16 18:35 CK-MB (CK-2) Rel Index 2.3 (0-4) 03/02/16 18:35 Troponin T < 0.010 ng/mL (0.00-0.029) 03/02/16 18:35 Total Protein 5.9 g/dL (6.3-8.2) L 03/05/16 07:39 Albumin 2.4 g/dL (3.9-5) L 03/05/16 07:39 Albumin/Globulin Ratio 0.7 % 03/05/16 07:39 TSH 0.427 mlU/mL (0.270-4.200) 03/04/16 19:38 Free T4 1.36 ng/dL (0.76-1.46) 03/02/16 18:35 Urine Color Vera (Yellow) 03/02/16 20:44 Urine Turbidity Clear (Clear) 03/02/16 20:44 Urine pH 7.0 (5.0-7.0) 03/02/16 20:44 Ur Specific [place] 1.023 (1.003-1.030) 03/02/16 20:44 Urine Protein 30 mg/dl mg/dL (Negative) 03/02/16 20:44 Urine Glucose (UA) Neg mg/dL (Negative) 03/02/16 20:44 Urine Ketones 20 mg/dL (Negative) 03/02/16 20:44 Urine Blood Neg (Negative) 03/02/16 20:44 Urine Nitrite Neg (Negative) 03/02/16 20:44 Urine Bilirubin Mod (Negative) 03/02/16 20:44 Urine Ictotest Positive (Negative) 03/02/16 20:44 Urine Urobilinogen 4.0 mg/dL (<2.0) 03/02/16 20:44 Ur Leukocyte Esterase Tr (Negative) 03/02/16 20:44 Urine WBC (Auto) < 1.0 /HPF (0.0-6.0) 03/02/16 20:44 Urine RBC (Auto) 1.0 /HPF (0.0-6.0) 03/02/16 20:44 U Epithel Cells (Auto) 3.0 /HPF (0-13.0) 03/02/16 20:44 Urine Bacteria (Auto) 1+ /HPF (Negative) 03/02/16 20:44 Urine Mucus 3+ /HPF 03/02/16 20:44
--- NOTE | 2016-03-10 11:55 | Progress Note ---
Assessment and Plan Current antibiotics: None Previous antibiotics: Zosyn 4.5Gr IV q8Hr 03/03 - 03/07 Levaquin 750 mg IV q24h 03/03-03/06 ASSESSMENT: Edith Coelho is a 60-year-old female with hypertension, obstructive sleep apnea and COPD who was admitted to [facility] on 03/02/16 with a one-month history of decreased appetite and increasing weakness. She has had a persistent leukocytosis. Problem list: 1. Leukocytosis -Marked elevation to 32,000 ( 03/08). -Likely reactive secondary to whatever is causing her encephalopathy: ? ETOH withdrawal, etc. -Rule out infection although work up negative to date and no obvious source on exam 2. 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 Gram negative pyuria -Urinalysis not suggestive of UTI with no pyuria 4. Hypokalemia -? secondary to hydrochlorothiazide PLAN: 1. For now; off antibiotics. 2. Suggest, if possible, brain MRI without contrast. 3. Reconsult neurology 4. Follow white count elevation 5. Suggest LP if brain MRI not helpful Subjective Date of service: 03/10/16 Principal diagnosis: Leukocytosis Interval history: Little clinical change. Remains obtunded. No further events overnight. Objective - Exam Narrative Exam: GENERAL: Well-developed, thin female. Mery out with noxious stimuli. HEAD: Normocephalic. No lesions seen. EYES: Pupils are equal reactive to light and accommodation. There is no scleral icterus. Optic fundi are not examined. There is bilateral arcus senilis. EARS: External ears without redness. THROAT: Oropharynx is not well seen. Markedly dry membranes. NECK: Supple. No enlargement of the thyroid gland. No significant cervical lymphadenopathy. No jugular venous distention at 30. LUNGS: Poor effort. No obvious rales. HEART: Regular rate. S1 and S2 are normal. There are no murmurs, gallops, clicks or rubs heard. ABDOMEN: Soft. Liver and spleen are not palpably enlarged or tender. No palpable masses. No ascites. Bowel sounds are normoactive. +NG. RECTAL: Not examined EXTREMITIES: No rash, peripheral lymphadenopathy, clubbing or edema. : Diaper in place. NEUROLOGIC: Awakes to noxious stimuli. Garbled speech. Drops off to sleep quickly. - Constitutional Vitals: Vital Signs Temp Pulse Resp BP Pulse Ox 98.5 F 76 16 99/63 95 03/10/16 07:00 03/10/16 07:00 03/10/16 07:00 03/10/16 07:00 03/10/16 07:00 Temperature -Last 24 Hours Temperature 98.5 F Temperature 98.6 F Temperature 98.3 F Temperature 98.2 F Temperature 97.4 F Temperature 97.6 F - Labs CBC & Chem 7: 03/10/16 Unknown 03/10/16 Unknown Labs: Abnormal lab results 03/09/16 03/10/16 03/10/16 Range/Units 16:03 06:16 Unknown WBC (4.5-11.0) K/mm3 RBC (3.65-5.03) M/mm3 Hgb (10.1-14.3) gm/dl Hct (30.3-42.9) % MCV (79-97) fl RDW (13.2-15.2) % Seg Neuts % (Manual) (40.0-70.0) % Lymphocytes % (Manual) (13.4-35.0) % Seg Neutrophils # Man (1.8-7.7) K/mm3 Monocytes # (Manual) (0.0-0.8) K/mm3 Eosinophils # (Manual) (0.0-0.4) K/mm3 Sodium 147 H (137-145) mmol/L Chloride 115.0 H (98-107) mmol/L Carbon Dioxide 20 L (22-30) mmol/L BUN 22 H (7-17) mg/dL Creatinine 1.6 H (0.7-1.2) mg/dL Glucose 142 H (65-100) mg/dL POC Glucose 130 H 170 H (70-105) Calcium 7.7 L (8.4-10.2) mg/dL Magnesium (1.7-2.3) mg/dL 03/10/16 03/10/16 Range/Units Unknown Unknown WBC 22.8 H (4.5-11.0) K/mm3 RBC 2.70 L (3.65-5.03) M/mm3 Hgb 8.7 L (10.1-14.3) gm/dl Hct 26.4 L (30.3-42.9) % MCV 98 H (79-97) fl RDW 17.1 H (13.2-15.2) % Seg Neuts % (Manual) 78.0 H (40.0-70.0) % Lymphocytes % (Manual) 12.0 L (13.4-35.0) % Seg Neutrophils # Man 17.8 H (1.8-7.7) K/mm3 Monocytes # (Manual) 1.1 H (0.0-0.8) K/mm3 Eosinophils # (Manual) 0.9 H (0.0-0.4) K/mm3 Sodium (137-145) mmol/L Chloride (98-107) mmol/L Carbon Dioxide (22-30) mmol/L BUN (7-17) mg/dL Creatinine (0.7-1.2) mg/dL Glucose (65-100) mg/dL POC Glucose (70-105) Calcium (8.4-10.2) mg/dL Magnesium 1.5 L (1.7-2.3) mg/dL
[2016-03-10] MEDS: D5W 1,000 ML IV SCH (12:25)
[2016-03-10] MEDS: FOLVITE PO SCH (12:26)
[2016-03-10] MEDS: TENORMIN PO SCH (12:27)
[2016-03-10] MEDS: VITAMIN B-1 FEEDTUBE SCH (12:27)
[2016-03-11] MEDS: ATIVAN IV PRN ×2 (01:05→10:40)
[2016-03-11] MEDS: D5W 1,000 ML IV SCH ×2 (01:06→08:17)
[2016-03-11] MEDS: NOVOLOG SUB-Q SCH ×3 (01:07→15:15)
[2016-03-11 01:50] LABS: Hematocrit 28.1 % (30.3-42.9); Mean Corpuscular HGB Conc 32 % (30-34); Mean Corpuscular Hemoglobin 31 pg (28-32); Mean Corpuscular Volume 96 fl (79-97); Platelet Count 218 K/mm3 (140-440); Red Blood Count 2.93 M/mm3 (3.65-5.03); Red Cell Distribution Width 17.4 % (13.2-15.2)
[2016-03-11 01:54] LABS: White Blood Count 24.3 K/mm3 (4.5-11.0)
[2016-03-11 03:00] LABS: Anisocytosis 1+; Basophils % (Manual) 0 % (0.0-1.8); Blastocytes % (Manual) 0 %
[2016-03-11 03:01] LABS: Diff Status Complete; Platelet Estimate Consistent w Auto
[2016-03-11] MEDS: HEPARIN SUB-Q SCH ×2 (05:51→15:11)
[2016-03-11 07:55] LABS: Calcium 7.5 mg/dL (8.4-10.2); Chloride 104.5 mmol/L (98-107); Magnesium 1.4 mg/dL (1.7-2.3); Potassium 4.7 mmol/L (3.6-5.0)
[2016-03-11] MEDS: PERCOCET 5/325 PO PRN (08:17)
[2016-03-11] MEDS: NACL 0.9% 1000 ML 1,000 ML IV SCH (10:16)
[2016-03-11] MEDS: TENORMIN PO SCH (10:25)
[2016-03-11] MEDS: FOLVITE PO SCH (10:26)
[2016-03-11] MEDS: VITAMIN B-1 FEEDTUBE SCH (10:26)
[2016-03-11] MEDS ORDERED: MAGNESIUM SULFATE 3 GM in NACL 0.9% 100 ML IV ONE (11:00)
--- NOTE | 2016-03-11 12:33 | Progress Note ---
Assessment and Plan Current antibiotics: None Previous antibiotics: Zosyn 4.5Gr IV q8Hr 03/03 - 03/07 Levaquin 750 mg IV q24h 03/03-03/06 ASSESSMENT: Edith Coelho is a 60-year-old female with hypertension, obstructive sleep apnea and COPD who was admitted to [facility] on 03/02/16 with a one-month history of decreased appetite and increasing weakness. She has had a persistent leukocytosis. Problem list: 1. Leukocytosis -Marked elevation to 32,000 ( 03/08). -Likely reactive secondary to whatever is causing her encephalopathy: ? ETOH withdrawal, etc. -Rule out infection although work up negative to date and no obvious source on exam 2. 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 Gram negative pyuria -Urinalysis not suggestive of UTI with no pyuria 4. Hypokalemia -? secondary to hydrochlorothiazide PLAN: 1. For now; off antibiotics. 2. Await Brain MRI findings 3. Reconsult neurology 4. Follow white count elevation 5. Suggest LP if brain MRI not helpful Subjective Date of service: 03/11/16 Principal diagnosis: Leukocytosis Interval history: Just now back from MRI of Brain. Had been given sedation for the study. Barely arousable now. Objective - Exam Narrative Exam: GENERAL: Well-developed, thin female. Very lethargic post sedation. HEAD: Normocephalic. No lesions seen. EYES: Pupils are equal reactive to light and accommodation. There is no scleral icterus. Optic fundi are not examined. There is bilateral arcus senilis. EARS: External ears without redness. THROAT: Oropharynx is not well seen. Markedly dry membranes. NECK: Supple. No enlargement of the thyroid gland. No significant cervical lymphadenopathy. No jugular venous distention at 30. LUNGS: Poor effort. No obvious rales. HEART: Regular rate. S1 and S2 are normal. There are no murmurs, gallops, clicks or rubs heard. ABDOMEN: Soft. Liver and spleen are not palpably enlarged or tender. No palpable masses. No ascites. Bowel sounds are normoactive. +NG. RECTAL: Not examined EXTREMITIES: No rash, peripheral lymphadenopathy, clubbing or edema. : Diaper in place. NEUROLOGIC: Awakes to noxious stimuli. - Constitutional Vitals: Vital Signs Temp Pulse Resp BP Pulse Ox 98.0 F 79 18 111/70 100 03/11/16 07:25 03/11/16 07:25 03/11/16 09:17 03/11/16 10:25 03/11/16 07:25 Temperature -Last 24 Hours Temperature 98.0 F Temperature 98.2 F Temperature 97.8 F Temperature 97.6 F - Labs CBC & Chem 7: 03/11/16 00:50 03/11/16 07:24 Labs: Abnormal lab results 03/10/16 03/10/16 03/11/16 Range/Units 11:53 17:22 00:11 WBC (4.5-11.0) K/mm3 RBC (3.65-5.03) M/mm3 Hgb (10.1-14.3) gm/dl Hct (30.3-42.9) % RDW (13.2-15.2) % Seg Neuts % (Manual) (40.0-70.0) % Lymphocytes % (Manual) (13.4-35.0) % Monocytes % (Manual) (0.0-7.3) % Seg Neutrophils # Man (1.8-7.7) K/mm3 Monocytes # (Manual) (0.0-0.8) K/mm3 Eosinophils # (Manual) (0.0-0.4) K/mm3 Sodium (137-145) mmol/L BUN (7-17) mg/dL Creatinine (0.7-1.2) mg/dL Glucose (65-100) mg/dL POC Glucose 141 H 159 H 143 H (70-105) Calcium (8.4-10.2) mg/dL Magnesium (1.7-2.3) mg/dL 03/11/16 03/11/16 03/11/16 Range/Units 00:50 06:15 07:24 WBC 24.3 H (4.5-11.0) K/mm3 RBC 2.93 L (3.65-5.03) M/mm3 Hgb 9.0 L (10.1-14.3) gm/dl Hct 28.1 L (30.3-42.9) % RDW 17.4 H (13.2-15.2) % Seg Neuts % (Manual) 74.0 H (40.0-70.0) % Lymphocytes % (Manual) 10.0 L (13.4-35.0) % Monocytes % (Manual) 8.0 H (0.0-7.3) % Seg Neutrophils # Man 18.0 H (1.8-7.7) K/mm3 Monocytes # (Manual) 1.9 H (0.0-0.8) K/mm3 Eosinophils # (Manual) 1.0 H (0.0-0.4) K/mm3 Sodium 135 L D (137-145) mmol/L BUN 27 H (7-17) mg/dL Creatinine 1.8 H (0.7-1.2) mg/dL Glucose 136 H (65-100) mg/dL POC Glucose 136 H (70-105) Calcium 7.5 L (8.4-10.2) mg/dL Magnesium 1.4 L (1.7-2.3) mg/dL
--- NOTE | 2016-03-11 13:08 | Progress Note ---
Assessment and Plan Assessment and plan: --Metabolic encephalopathy/patient is unresponsive and confused Workup so far negative, pending MRI, if MRI is negative we will consider lumbar puncture Neurology following, continue neuro checks and supportive care --Dysphagia, secondary to metabolic encephalopathy Patient is receiving her medication via Dobbhoff for more than 7 days and Dobbhoff feeds for the last few days Patient remains encephalopathic, unable to cooperate speech and swallow evaluation, to prevent complications of aspiration pneumonia And dislodgment of Dobbhoff, and for long-term feeding and medication administration,patient would benefit by more secure and stable nutrition access We will consult GI for possible PEG placement , I discussed with the GI Dr. Ramachandran --Acute renal failure probably secondary to vasomotor nephropathy gentle hydration closely monitor renal function avoid nephrotoxic medications consider nephrology evaluation if needed --Leukocytosis. Nonspecific, trending down --Positive urine cultures for Escherichia coli, ID following Recommend monitor off antibiotics --Hypernatremia. Trending down closely monitor --Hypertension. Well controlled on Atenolol, lisinopril, clonidine prn. --Alcohol withdrawal symptoms; CIWA protocol. --Electrolyte imbalances replenish per protocol and monitor levels --Full code status --DVT prophylaxis with heparin DC planning possible case management and medically stable Consults and recommendations noted and appreciated Plan of care discussed with the at the bedside as well as her nurse and the case management History Interval history: Reason seen and evaluated medical records reviewed Patient is scheduled for MRI today, in preparation for MRI patient was given sedation with Ativan No new events reported by the nursing staff Vital signs reviewed Hospitalist Physical - Constitutional Vitals: Temp Pulse Resp BP Pulse Ox 98.0 F 79 18 111/70 100 03/11/16 07:25 03/11/16 07:25 03/11/16 09:17 03/11/16 10:25 03/11/16 07:25 General appearance: Present: no acute distress, cachectic, disheveled, other ( sedated) - Neck Neck: Present: supple, normal ROM - Respiratory Respiratory effort: normal Respiratory: bilateral: diminished, negative: rales, rhonchi, wheezing - Cardiovascular Rhythm: regular Heart Sounds: Present: S1 & S2 - Extremities Extremities: no ischemia, pulses intact, pulses symmetrical Peripheral Pulses: within normal limits - Abdominal General gastrointestinal: soft, non-tender, non-distended - Integumentary Integumentary: Present: clear, warm - Psychiatric Psychiatric: other (noncommunicative confused) - Neurologic Neurologic: other (noncommunicative encephalopathy,) Results - Labs CBC & Chem 7: 03/11/16 00:50 03/11/16 07:24 Labs: Laboratory Last Values WBC 24.3 K/mm3 (4.5-11.0) H 03/11/16 00:50 RBC 2.93 M/mm3 (3.65-5.03) L 03/11/16 00:50 Hgb 9.0 gm/dl (10.1-14.3) L 03/11/16 00:50 Hct 28.1 % (30.3-42.9) L 03/11/16 00:50 MCV 96 fl (79-97) 03/11/16 00:50 MCH 31 pg (28-32) 03/11/16 00:50 MCHC 32 % (30-34) 03/11/16 00:50 RDW 17.4 % (13.2-15.2) H 03/11/16 00:50 Plt Count 218 K/mm3 (140-440) 03/11/16 00:50 Lymph % (Auto) 11.1 % (13.4-35.0) L 03/02/16 18:35 [place] % (Auto) 6.1 % (0.0-7.3) 03/02/16 18:35 Eos % (Auto) 0.6 % (0.0-4.3) 03/02/16 18:35 Baso % (Auto) 0.7 % (0.0-1.8) 03/02/16 18:35 Lymph # 1.8 K/mm3 (1.2-5.4) 03/02/16 18:35 [place] # 1.0 K/mm3 (0.0-0.8) H 03/02/16 18:35 Eos # 0.1 K/mm3 (0.0-0.4) 03/02/16 18:35 Baso # 0.1 K/mm3 (0.0-0.1) 03/02/16 18:35 Add Manual Diff Complete 03/11/16 00:50 Total Counted 100 03/11/16 00:50 Seg Neutrophils % 81.5 % (40.0-70.0) H 03/02/16 18:35 Seg Neuts % (Manual) 74.0 % (40.0-70.0) H 03/11/16 00:50 Band Neutrophils % 4.0 % 03/11/16 00:50 Lymphocytes % (Manual) 10.0 % (13.4-35.0) L 03/11/16 00:50 Reactive Lymphs % (Man) 0 % 03/11/16 00:50 Monocytes % (Manual) 8.0 % (0.0-7.3) H 03/11/16 00:50 Eosinophils % (Manual) 4.0 % (0.0-4.3) 03/11/16 00:50 Basophils % (Manual) 0 % (0.0-1.8) 03/11/16 00:50 Metamyelocytes % 0 % 03/11/16 00:50 Myelocytes % 0 % 03/11/16 00:50 Promyelocytes % 0 % 03/11/16 00:50 Blast Cells % 0 % 03/11/16 00:50 Nucleated RBC % Not Reportable 03/11/16 00:50 Seg Neutrophils # 13.0 K/mm3 (1.8-7.7) H 03/02/16 18:35 Seg Neutrophils # Man 18.0 K/mm3 (1.8-7.7) H 03/11/16 00:50 Band Neutrophils # 1.0 K/mm3 03/11/16 00:50 Lymphocytes # (Manual) 2.4 K/mm3 (1.2-5.4) 03/11/16 00:50 Abs React Lymphs (Man) 0.0 K/mm3 03/11/16 00:50 Monocytes # (Manual) 1.9 K/mm3 (0.0-0.8) H 03/11/16 00:50 Eosinophils # (Manual) 1.0 K/mm3 (0.0-0.4) H 03/11/16 00:50 Basophils # (Manual) 0.0 K/mm3 (0.0-0.1) 03/11/16 00:50 Metamyelocytes # 0.0 K/mm3 03/11/16 00:50 Myelocytes # 0.0 K/mm3 03/11/16 00:50 Promyelocytes # 0.0 K/mm3 03/11/16 00:50 Blast Cells # 0.0 K/mm3 03/11/16 00:50 WBC Morphology Not Reportable 03/11/16 00:50 Hypersegmented Neuts Not Reportable 03/11/16 00:50 Hyposegmented Neuts Not Reportable 03/11/16 00:50 Hypogranular Neuts Not Reportable 03/11/16 00:50 Smudge Cells Not Reportable 03/11/16 00:50 Toxic Granulation Not Reportable 03/11/16 00:50 Toxic Vacuolation Not Reportable 03/11/16 00:50 Dohle Bodies Not Reportable 03/11/16 00:50 Pelger-Huet Anomaly Not Reportable 03/11/16 00:50 Betty Rods Not Reportable 03/11/16 00:50 Platelet Estimate Consistent w auto 03/11/16 00:50 Clumped Platelets Not Reportable 03/11/16 00:50 Plt Clumps, EDTA Not Reportable 03/11/16 00:50 Large Platelets Not Reportable 03/11/16 00:50 Giant Platelets Not Reportable 03/11/16 00:50 Platelet Satelliting Not Reportable 03/11/16 00:50 Plt Morphology Comment Not Reportable 03/11/16 00:50 RBC Morphology Not Reportable 03/11/16 00:50 Dimorphic RBCs Not Reportable 03/11/16 00:50 Polychromasia Not Reportable 03/11/16 00:50 Hypochromasia Not Reportable 03/11/16 00:50 Poikilocytosis Not Reportable 03/11/16 00:50 Anisocytosis 1+ 03/11/16 00:50 Microcytosis Not Reportable 03/11/16 00:50 Macrocytosis Not Reportable 03/11/16 00:50 Spherocytes Not Reportable 03/11/16 00:50 Pappenheimer Bodies Not Reportable 03/11/16 00:50 Sickle Cells Not Reportable 03/11/16 00:50 Target Cells Not Reportable 03/11/16 00:50 Tear Drop Cells Not Reportable 03/11/16 00:50 Ovalocytes Not Reportable 03/11/16 00:50 Helmet Cells Not Reportable 03/11/16 00:50 [place]-Corley Bodies Not Reportable 03/11/16 00:50 [place] Rings Not Reportable 03/11/16 00:50 Tim Cells Not Reportable 03/11/16 00:50 Bite Cells Not Reportable 03/11/16 00:50 Crenated Cell Not Reportable 03/11/16 00:50 Elliptocytes Not Reportable 03/11/16 00:50 Acanthocytes (Spur) Not Reportable 03/11/16 00:50 Rouleaux Not Reportable 03/11/16 00:50 Hemoglobin C Crystals Not Reportable 03/11/16 00:50 Schistocytes Not Reportable 03/11/16 00:50 Malaria parasites Not Reportable 03/11/16 00:50 Matthew Bodies Not Reportable 03/11/16 00:50 Hem Pathologist Commnt No 03/11/16 00:50 Sodium 135 mmol/L (137-145) L D 03/11/16 07:24 Potassium 4.7 mmol/L (3.6-5.0) 03/11/16 07:24 Chloride 104.5 mmol/L (98-107) 03/11/16 07:24 Carbon Dioxide 22 mmol/L (22-30) 03/11/16 07:24 Anion Gap 13 mmol/L 03/11/16 07:24 BUN 27 mg/dL (7-17) H 03/11/16 07:24 Creatinine 1.8 mg/dL (0.7-1.2) H 03/11/16 07:24 Estimated GFR 35 ml/min 03/11/16 07:24 BUN/Creatinine Ratio 15.00 % 03/11/16 07:24 Glucose 136 mg/dL (65-100) H 03/11/16 07:24 POC Glucose 136 (70-105) H 03/11/16 06:15 Lactic Acid 1.7 mmol/L (0.7-2.0) 03/03/16 02:43 Calcium 7.5 mg/dL (8.4-10.2) L 03/11/16 07:24 Phosphorus 2.5 mg/dL (2.5-4.5) D 03/07/16 04:53 Magnesium 1.4 mg/dL (1.7-2.3) L 03/11/16 07:24 Total Bilirubin 1.4 mg/dL (0.1-1.2) H 03/05/16 07:39 AST 38 units/L (5-40) 03/05/16 07:39 ALT 17 units/L (7-56) 03/05/16 07:39 Alkaline Phosphatase 105 units/L (35-129) 03/05/16 07:39 Ammonia 55.0 umol/L (25-60) 03/07/16 04:53 Total Creatine Kinase 42 units/L (30-135) 03/02/16 18:35 CK-MB (CK-2) < 1.0 ng/mL (0.0-4.0) 03/02/16 18:35 CK-MB (CK-2) Rel Index 2.3 (0-4) 03/02/16 18:35 Troponin T < 0.010 ng/mL (0.00-0.029) 03/02/16 18:35 Total Protein 5.9 g/dL (6.3-8.2) L 03/05/16 07:39 Albumin 2.4 g/dL (3.9-5) L 03/05/16 07:39 Albumin/Globulin Ratio 0.7 % 03/05/16 07:39 TSH 0.427 mlU/mL (0.270-4.200) 03/04/16 19:38 Free T4 1.36 ng/dL (0.76-1.46) 03/02/16 18:35 Urine Color Vera (Yellow) 03/02/16 20:44 Urine Turbidity Clear (Clear) 03/02/16 20:44 Urine pH 7.0 (5.0-7.0) 03/02/16 20:44 Ur Specific [place] 1.023 (1.003-1.030) 03/02/16 20:44 Urine Protein 30 mg/dl mg/dL (Negative) 03/02/16 20:44 Urine Glucose (UA) Neg mg/dL (Negative) 03/02/16 20:44 Urine Ketones 20 mg/dL (Negative) 03/02/16 20:44 Urine Blood Neg (Negative) 03/02/16 20:44 Urine Nitrite Neg (Negative) 03/02/16 20:44 Urine Bilirubin Mod (Negative) 03/02/16 20:44 Urine Ictotest Positive (Negative) 03/02/16 20:44 Urine Urobilinogen 4.0 mg/dL (<2.0) 03/02/16 20:44 Ur Leukocyte Esterase Tr (Negative) 03/02/16 20:44 Urine WBC (Auto) < 1.0 /HPF (0.0-6.0) 03/02/16 20:44 Urine RBC (Auto) 1.0 /HPF (0.0-6.0) 03/02/16 20:44 U Epithel Cells (Auto) 3.0 /HPF (0-13.0) 03/02/16 20:44 Urine Bacteria (Auto) 1+ /HPF (Negative) 03/02/16 20:44 Urine Mucus 3+ /HPF 03/02/16 20:44
--- NOTE | 2016-03-11 13:12 | Consultation ---
History of Present Illness - Reason for Consult Consult date: 03/11/16 Nutritional support - History of Present Illness See Dictated note Past History Past Medical History: hypertension, other (oa, nicotine dependence) Past Surgical History: hysterectomy, Other (rotator cuff surgery) Social history: , smoking. denies: alcohol abuse, prescription drug abuse Family history: hypertension Medications and Allergies Allergies Allergy/AdvReac Type Severity Reaction Status Date / Time No Known Allergies Allergy Verified 03/02/16 21:45 Home Medications Medication Instructions Recorded Confirmed Last Taken Type oxyCODONE /ACETAMINOPHEN [Percocet 1 tab PO Q6HR PRN #20 tablet 03/12/13 Unknown Rx 5/325 mg] Acetaminophen-Codeine #3 TAB 30 mg PO PRN 03/03/16 Unknown History FLUoxetine HCL [FLUoxetine] 20 mg PO DAILY 03/03/16 03/03/16 Unknown History Gabapentin 600 mg PO TID 03/03/16 03/03/16 Unknown History Ibuprofen 800 mg PO PRN 03/03/16 Unknown History Lisinopril/Hydrochlorothiazide 20 mg PO DAILY 03/03/16 03/03/16 Unknown History Naproxen TAB 500 mg PO BID 03/03/16 03/03/16 Unknown History Sulfamethoxazole/Trimethoprim 800 mg PO BID 03/03/16 03/03/16 Unknown History Symbicort 160-4.5 (Nf) 160 INHALATION BID 03/03/16 Unknown History hydrOXYZINE PAMOATE [hydrOXYzine 25 mg PO BID 03/03/16 03/03/16 Unknown History Pamoate] traZODone 100 mg PO QHS 03/03/16 03/03/16 Unknown History Active Meds: Active Medications Acetaminophen (Tylenol) 650 mg PO Q4H PRN PRN Reason: Pain MILD(1-3)/Fever >100.5/GILL Albuterol (Proventil) 2.5 mg IH Q6HRT PRN PRN Reason: Shortness Of Breath Lipase/Protease/Amylase (Diana Kinney 10,500 Unit) 1 each FEEDTUBE PRN PRN PRN Reason: For Clogged Feeding Tube Atenolol (Tenormin) 50 mg PO QDAY PATTY Last Admin: 03/11/16 10:25 Dose: 50 mg Clonidine HCl (Catapres) 0.1 mg PO Q4H PRN PRN Reason: For SBP>170 or DBP>110 Folic Acid (Folvite) 1 mg PO QDAY [facility] Last Admin: 03/11/16 10:26 Dose: 1 mg Heparin Sodium (Porcine) (Heparin) 5,000 unit SUB-Q Q8HR [facility] Last Admin: 03/11/16 05:51 Dose: 5,000 unit Hydralazine HCl (Apresoline) 20 mg IV Q6H PRN PRN Reason: Blood Pressure Last Admin: 03/07/16 12:28 Dose: 20 mg Dextrose (D5w) 1,000 mls @ 100 mls/hr IV DIRECT PATTY Last Admin: 03/11/16 08:17 Dose: 100 mls/hr Magnesium Sulfate 3 gm/ Sodium (Chloride) 106 mls @ 35.333 mls/hr IV ONCE ONE Stop: 03/11/16 13:59 Sodium Chloride (Nacl 0.9% 1000 Ml) 1,000 mls @ 100 mls/hr IV DIRECT PATTY Last Admin: 03/11/16 10:16 Dose: 100 mls/hr Insulin Aspart (Novolog) 0 units SUB-Q Q6HR [facility] PRN Reason: Protocol Last Admin: 03/11/16 08:22 Dose: Not Given Lorazepam (Ativan) 1 mg IV Q1H PRN PRN Reason: agitation or anxiety Last Admin: 03/08/16 15:51 Dose: 1 mg Lorazepam (Ativan) 4 mg IV Q1HR PRN PRN Reason: CIWA-Ar 16-25 Lorazepam (Ativan) 2 mg IV Q1HR PRN PRN Reason: CIWA-Ar 8-15 Last Admin: 03/11/16 10:40 Dose: 2 mg Lorazepam (Ativan) 4 mg IV Q15MIN PRN PRN Reason: CIWA-Ar >25 Oxycodone/Acetaminophen (Percocet 5/325) 1 tab PO Q6H PRN PRN Reason: Pain Last Admin: 03/11/16 08:17 Dose: 1 tab Simple Syrup (Simple Syrup) 15 ml FEEDTUBE PRN PRN PRN Reason: Hypoglycemia Simple Syrup (Simple Syrup) 30 ml FEEDTUBE PRN PRN PRN Reason: Hypoglycemia Sodium Bicarbonate (Sodium Bicarbonate) 325 mg FEEDTUBE PRN PRN PRN Reason: For Clogged Feeding Tube Thiamine HCl (Vitamin B-1) 100 mg FEEDTUBE QDAY PATTY Last Admin: 03/11/16 10:26 Dose: 100 mg Exam - Constitutional Vitals: Temp Pulse Resp BP Pulse Ox 98.0 F 79 18 111/70 100 03/11/16 07:25 03/11/16 07:25 03/11/16 09:17 03/11/16 10:25 03/11/16 07:25 Results - Labs CBC & Chem 7: 03/11/16 00:50 03/11/16 07:24 Labs: Abnormal lab results 03/10/16 03/11/16 03/11/16 Range/Units 17:22 00:11 00:50 WBC 24.3 H (4.5-11.0) K/mm3 RBC 2.93 L (3.65-5.03) M/mm3 Hgb 9.0 L (10.1-14.3) gm/dl Hct 28.1 L (30.3-42.9) % RDW 17.4 H (13.2-15.2) % Seg Neuts % (Manual) 74.0 H (40.0-70.0) % Lymphocytes % (Manual) 10.0 L (13.4-35.0) % Monocytes % (Manual) 8.0 H (0.0-7.3) % Seg Neutrophils # Man 18.0 H (1.8-7.7) K/mm3 Monocytes # (Manual) 1.9 H (0.0-0.8) K/mm3 Eosinophils # (Manual) 1.0 H (0.0-0.4) K/mm3 Sodium (137-145) mmol/L BUN (7-17) mg/dL Creatinine (0.7-1.2) mg/dL Glucose (65-100) mg/dL POC Glucose 159 H 143 H (70-105) Calcium (8.4-10.2) mg/dL Magnesium (1.7-2.3) mg/dL 03/11/16 03/11/16 Range/Units 06:15 07:24 WBC (4.5-11.0) K/mm3 RBC (3.65-5.03) M/mm3 Hgb (10.1-14.3) gm/dl Hct (30.3-42.9) % RDW (13.2-15.2) % Seg Neuts % (Manual) (40.0-70.0) % Lymphocytes % (Manual) (13.4-35.0) % Monocytes % (Manual) (0.0-7.3) % Seg Neutrophils # Man (1.8-7.7) K/mm3 Monocytes # (Manual) (0.0-0.8) K/mm3 Eosinophils # (Manual) (0.0-0.4) K/mm3 Sodium 135 L D (137-145) mmol/L BUN 27 H (7-17) mg/dL Creatinine 1.8 H (0.7-1.2) mg/dL Glucose 136 H (65-100) mg/dL POC Glucose 136 H (70-105) Calcium 7.5 L (8.4-10.2) mg/dL Magnesium 1.4 L (1.7-2.3) mg/dL Assessment and Plan Obtunded patient with no clear etiology for encephalopathy, on whom G-tube placement is requested for nutritional support. Rec - Await final Neurologic opinion regarding reversibility of encephalopathy. If no clear answers, and pt deemed appropriate to go for long-term care, then will place G-tube. Please call when ready for placement.
--- NOTE | 2016-03-11 13:50 | Consultation ---
REFERRING PHYSICIAN: Mary Alice Colunga MD REASON FOR CONSULTATION: G-tube placement. HISTORY OF PRESENT ILLNESS: The patient is a 60-year-old woman who was brought to the Emergency Room with complaints of decreased appetite and lethargy. According to the hospital notes, the patient's states that she has had a decreased appetite for 1 month as well as increasing lethargy and weakness. She has been found to have leukocytosis. No clear etiology for her altered mental status has been elucidated. The patient has had a neuro evaluation, ID evaluation, as well as a head CT. A brain MRI was just performed today and the patient is still sedated from this. Regardless, according to the staff, the patient is not very responsive. Further details are only gleaned from the chart. ALLERGIES: No known drug allergies. MEDICATIONS: Apparently at home, she is on gabapentin, fluoxetine, lisinopril/hydrochlorothiazide, naproxen, hydroxyzine, oxycodone, possibly Symbicort. PAST MEDICAL HISTORY: There is a history of hypertension and osteoarthritis as well as hysterectomy and rotator cuff surgery. FAMILY HISTORY: Notable only for hypertension. SOCIAL HISTORY: She is and apparently does smoke. There is no history of ethanol usage. REVIEW OF SYSTEMS: Not obtained. PHYSICAL EXAMINATION: GENERAL: This is an obtunded, thin, black female lying in bed, who moans when she was rolled over. However, she just came back after being sedated for an MRI. VITAL SIGNS: Temperature is 98.0, pulse is 79, blood pressure 111/70. HEENT: She is anicteric with arcus senilis. Oropharynx is clear. LUNGS: Clear anteriorly bilaterally. CARDIOVASCULAR: Regular with no extra heart sounds. ABDOMEN: Soft with good bowel sounds and no organomegaly or tenderness to palpation. RECTAL: Deferred. EXTREMITIES: Reveal no edema. NEUROLOGIC: She awakes when she is rolled over, as she is being cleaned currently. She says some words that are garbled. LABORATORY DATA: White count is 24.3, hemoglobin 9.0, hematocrit 28.1, MCV of 96, platelet count of 218,000. Sodium 135, potassium 4.7, chloride 105, bicarbonate 22, BUN 27, creatinine 1.8, glucose 136. On the 6th, her AST was 38, ALT 17, alkaline phosphatase 105, total bilirubin was 1.4. IMPRESSION: Nutritional support -- the patient is getting fed via Dobbhoff currently. She is not awake enough to swallow or eat. Certainly, if this is a long-term ongoing process, she will need a G-tube for long-term nutritional support if that is with the family wishes. At this point, since the workup for the mental status change is still in progress, we will defer G-tube placement. Once that evaluation has been completed and the patient is deemed not to be readily reversible, please contact us and we will place the G-tube. At that point, presumably the patient will be going to a long-term care facility for ongoing care. JOB# [id number] HRC/NTS
--- NOTE | 2016-03-11 15:38 | Magnetic Resonance Report ---
HISTORY: Altered mental status/encephalopathy. FINDINGS: The examination is compromised by motion artifact on several sequences. The posterior fossa is normal. The ventricles are normal in size and contour. There are no masses or extra-axial collections. Minimal scattered hyperintense T2 and FLAIR signal is seen in the periventricular white matter. There is no restricted diffusion. The pituitary gland is normal. The remaining visualized extracranial structures appear normal. IMPRESSION: No acute findings with above-described technical limitations noted. Mild periventricular white matter ischemic changes are present.
[2016-03-12] MEDS: ATIVAN IV PRN ×3 (01:02→22:55)
[2016-03-12] MEDS: PERCOCET 5/325 PO PRN ×2 (01:02→09:28)
[2016-03-12] MEDS: NACL 0.9% 1000 ML 1,000 ML IV SCH ×2 (01:03→11:32)
--- NOTE | 2016-03-12 07:06 | Progress Note ---
Assessment and Plan Encephalopathy: LP is reasonable given pt's continued AMS and leukocytosis, would start with routine studies and save 1 cc fluid in lab if additional studies are needed consider b12, pt cachetic. this can cause AMs. Would also check HIV if no contraindication Consider rechecking urine as well. Subjective Date of service: 03/12/16 Principal diagnosis: Leukocytosis Interval history: Pt lying in bed, sleeping but easily aroused. Objective - Vital Sign Vital Signs - 12hr 03/11/16 03/11/16 03/11/16 20:00 22:00 23:15 Temperature 97.7 F 97.9 F Pulse Rate [ 63 From Monitor] Pulse Rate [ 66 Left Brachial] Pulse Rate [ 62 Right Radial] Respiratory 20 20 20 Rate Respiratory 18 Rate [Bilateral Shoulder] Blood Pressure 105/67 99/56 [Left Arm] O2 Sat by Pulse 98 98 98 Oximetry 03/12/16 01:02 Temperature Pulse Rate [ From Monitor] Pulse Rate [ Left Brachial] Pulse Rate [ Right Radial] Respiratory 20 Rate Respiratory Rate [Bilateral Shoulder] Blood Pressure [Left Arm] O2 Sat by Pulse Oximetry - General Apperance Constitutional: comfortable - Respiratory Respiratory: lungs clear - Neurologic Detailed motor examination: grossly full strength in (MRI brain without acute findings.) - Laboratory Findings CBC and BMP: 03/11/16 00:50 03/11/16 07:24 Abnormal Lab Findings: Abnormal Labs 03/03/16 03/03/16 03/04/16 15:47 15:47 05:14 WBC 19.2 H 23.1 H RBC 3.64 L Hgb Hct MCV RDW 16.5 H 16.6 H Plt Count 449 H Seg Neuts % (Manual) Lymphocytes % (Manual) Monocytes % (Manual) Seg Neutrophils # Man Monocytes # (Manual) Eosinophils # (Manual) Sodium Potassium 2.8 L* Chloride 96.5 L Carbon Dioxide 20 L BUN Creatinine 0.6 L Glucose 139 H POC Glucose Calcium Phosphorus Magnesium Total Bilirubin Ammonia Total Protein Albumin 03/04/16 03/04/16 03/04/16 05:14 09:01 19:38 WBC RBC Hgb Hct MCV RDW Plt Count Seg Neuts % (Manual) Lymphocytes % (Manual) Monocytes % (Manual) Seg Neutrophils # Man Monocytes # (Manual) Eosinophils # (Manual) Sodium 135 L Potassium 3.3 L Chloride 95.7 L Carbon Dioxide 19 L BUN Creatinine Glucose 130 H POC Glucose Calcium 8.0 L Phosphorus 1.4 L Magnesium 1.0 L Total Bilirubin 1.9 H Ammonia 95.0 H Total Protein Albumin 3.0 L 03/05/16 03/05/16 03/05/16 07:39 07:39 17:59 WBC 20.3 H RBC 3.50 L Hgb Hct MCV 98 H RDW 16.1 H Plt Count Seg Neuts % (Manual) Lymphocytes % (Manual) Monocytes % (Manual) Seg Neutrophils # Man Monocytes # (Manual) Eosinophils # (Manual) Sodium Potassium 2.7 L* 3.2 L Chloride Carbon Dioxide 19 L 18 L BUN Creatinine 1.4 H D 1.4 H Glucose 131 H POC Glucose Calcium 7.6 L 7.3 L Phosphorus 6.7 H D Magnesium 2.6 H Total Bilirubin 1.4 H Ammonia Total Protein 5.9 L Albumin 2.4 L 03/06/16 03/06/16 03/06/16 09:54 09:54 18:07 WBC 22.2 H RBC 3.19 L Hgb 9.9 L Hct MCV 98 H RDW 16.8 H Plt Count Seg Neuts % (Manual) Lymphocytes % (Manual) Monocytes % (Manual) Seg Neutrophils # Man Monocytes # (Manual) Eosinophils # (Manual) Sodium 150 H D Potassium 2.8 L* 2.8 L* Chloride 113.5 H Carbon Dioxide 16 L 16 L BUN Creatinine Glucose 137 H 106 H POC Glucose Calcium 7.4 L 7.7 L Phosphorus Magnesium Total Bilirubin Ammonia Total Protein Albumin 03/07/16 03/07/16 03/07/16 04:53 04:53 05:43 WBC 19.7 H RBC 3.20 L Hgb 9.9 L Hct MCV RDW 16.6 H Plt Count Seg Neuts % (Manual) Lymphocytes % (Manual) Monocytes % (Manual) Seg Neutrophils # Man Monocytes # (Manual) Eosinophils # (Manual) Sodium Potassium 2.9 L* Chloride 114.1 H Carbon Dioxide 19 L BUN Creatinine Glucose 140 H POC Glucose 143 H Calcium 7.8 L Phosphorus Magnesium Total Bilirubin Ammonia Total Protein Albumin 03/07/16 03/08/16 03/08/16 22:20 05:09 05:09 WBC 32.2 H RBC 3.18 L Hgb 10.0 L Hct MCV RDW 16.8 H Plt Count Seg Neuts % (Manual) Lymphocytes % (Manual) Monocytes % (Manual) Seg Neutrophils # Man Monocytes # (Manual) Eosinophils # (Manual) Sodium 155 H D Potassium 6.3 H* D 6.1 H* Chloride Carbon Dioxide 18 L BUN Creatinine 1.6 H D Glucose 213 H POC Glucose Calcium Phosphorus Magnesium Total Bilirubin Ammonia Total Protein Albumin 03/08/16 03/08/16 03/08/16 09:11 16:28 17:27 WBC RBC Hgb Hct MCV RDW Plt Count Seg Neuts % (Manual) Lymphocytes % (Manual) Monocytes % (Manual) Seg Neutrophils # Man Monocytes # (Manual) Eosinophils # (Manual) Sodium 156 H Potassium Chloride 126.2 H Carbon Dioxide 19 L BUN Creatinine 1.8 H Glucose 175 H POC Glucose 204 H 130 H Calcium Phosphorus Magnesium Total Bilirubin Ammonia Total Protein Albumin 03/08/16 03/09/16 03/09/16 22:06 05:47 08:00 WBC 29.9 H RBC 2.93 L Hgb 9.0 L Hct 28.4 L MCV RDW 17.4 H Plt Count Seg Neuts % (Manual) Lymphocytes % (Manual) Monocytes % (Manual) Seg Neutrophils # Man Monocytes # (Manual) Eosinophils # (Manual) Sodium Potassium Chloride Carbon Dioxide BUN Creatinine Glucose POC Glucose 192 H 206 H Calcium Phosphorus Magnesium Total Bilirubin Ammonia Total Protein Albumin 03/09/16 03/09/16 03/09/16 08:00 11:33 16:03 WBC RBC Hgb Hct MCV RDW Plt Count Seg Neuts % (Manual) Lymphocytes % (Manual) Monocytes % (Manual) Seg Neutrophils # Man Monocytes # (Manual) Eosinophils # (Manual) Sodium 154 H Potassium Chloride 123.0 H Carbon Dioxide 21 L BUN 18 H Creatinine 1.9 H Glucose 179 H POC Glucose 152 H 130 H Calcium 8.2 L Phosphorus Magnesium Total Bilirubin Ammonia Total Protein Albumin 03/10/16 03/10/16 03/10/16 06:16 11:53 17:22 WBC RBC Hgb Hct MCV RDW Plt Count Seg Neuts % (Manual) Lymphocytes % (Manual) Monocytes % (Manual) Seg Neutrophils # Man Monocytes # (Manual) Eosinophils # (Manual) Sodium Potassium Chloride Carbon Dioxide BUN Creatinine Glucose POC Glucose 170 H 141 H 159 H Calcium Phosphorus Magnesium Total Bilirubin Ammonia Total Protein Albumin 03/10/16 03/10/16 03/10/16 Unknown Unknown Unknown WBC 22.8 H RBC 2.70 L Hgb 8.7 L Hct 26.4 L MCV 98 H RDW 17.1 H Plt Count Seg Neuts % (Manual) 78.0 H Lymphocytes % (Manual) 12.0 L Monocytes % (Manual) Seg Neutrophils # Man 17.8 H Monocytes # (Manual) 1.1 H Eosinophils # (Manual) 0.9 H Sodium 147 H Potassium Chloride 115.0 H Carbon Dioxide 20 L BUN 22 H Creatinine 1.6 H Glucose 142 H POC Glucose Calcium 7.7 L Phosphorus Magnesium 1.5 L Total Bilirubin Ammonia Total Protein Albumin 03/11/16 03/11/16 03/11/16 00:11 00:50 06:15 WBC 24.3 H RBC 2.93 L Hgb 9.0 L Hct 28.1 L MCV RDW 17.4 H Plt Count Seg Neuts % (Manual) 74.0 H Lymphocytes % (Manual) 10.0 L Monocytes % (Manual) 8.0 H Seg Neutrophils # Man 18.0 H Monocytes # (Manual) 1.9 H Eosinophils # (Manual) 1.0 H Sodium Potassium Chloride Carbon Dioxide BUN Creatinine Glucose POC Glucose 143 H 136 H Calcium Phosphorus Magnesium Total Bilirubin Ammonia Total Protein Albumin 03/11/16 07:24 WBC RBC Hgb Hct MCV RDW Plt Count Seg Neuts % (Manual) Lymphocytes % (Manual) Monocytes % (Manual) Seg Neutrophils # Man Monocytes # (Manual) Eosinophils # (Manual) Sodium 135 L D Potassium Chloride Carbon Dioxide BUN 27 H Creatinine 1.8 H Glucose 136 H POC Glucose Calcium 7.5 L Phosphorus Magnesium 1.4 L Total Bilirubin Ammonia Total Protein Albumin
[2016-03-12] MEDS: NOVOLOG SUB-Q SCH ×5 (09:24→17:05)
[2016-03-12] MEDS: HEPARIN SUB-Q SCH ×3 (09:26→22:56)
[2016-03-12] MEDS: FOLVITE PO SCH (09:27)
[2016-03-12] MEDS: VITAMIN B-1 FEEDTUBE SCH (09:28)
[2016-03-12] MEDS: TENORMIN PO SCH (09:28)
[2016-03-12] MEDS ORDERED: MAGNESIUM SULFATE 4GM/100ML 100 ML IV ONE (10:00)
[2016-03-12] MEDS ORDERED: VITAMIN B-12 IM ONE (10:00)
[2016-03-12 10:29] LABS: INR 0.99 (0.87-1.13)
--- NOTE | 2016-03-12 11:58 | Progress Note ---
Assessment and Plan Current antibiotics: None Previous antibiotics: Zosyn 4.5 grams IV q8h 03/03-03/07 Levaquin 750 mg IV q24h 03/03-03/06 ASSESSMENT: Edith Coelho is a 60-year-old female with hypertension, obstructive sleep apnea and COPD who was admitted to [facility] on 03/02/16 with a one-month history of decreased appetite and increasing weakness. She has had a persistent leukocytosis. Problem list: 1. Leukocytosis -Likely reactive secondary to whatever is causing her encephalopathy: ? ETOH withdrawal, etc. -Rule out infection although work up negative to date and no obvious source on exam -Rule out primary hematologic reason 2. AMS -Rule out toxic metabolic encephalopathy -Rule out ETOH withdrawal -Doubt [employer] [place] infection -MRI with no obvious abnormalities. 3. Gram negative pyuria -Urinalysis not suggestive of UTI with no pyuria 4. Hypokalemia -? secondary to hydrochlorothiazide PLAN: 1. Continue to follow off of antibiotics 2. Agree with plans for lumbar puncture 3. May need to consider bone marrow 4. Continued supportive measures Bayron Avitia MD [facility] Office: [phone] Subjective Date of service: 03/12/16 Principal diagnosis: Leukocytosis Interval history: Remains lethargic but will arouse but not particularly responsive to answer. No acute distress. Objective - Exam Narrative Exam: GENERAL: Well-developed, cachectic female who is in no acute distress but quite lethargic and does not follow commands. HEAD: Normocephalic. No lesions seen. EYES: Pupils are equal reactive to light and accommodation. There is no scleral icterus. Optic fundi are not examined. There is bilateral arcus senilis. EARS: Tympanic membranes are normal. THROAT: Oropharynx is normal with no evidence of oral candidiasis or pharyngitis. Poor dentition but no obvious dental infection seen. Some bleeding from the upper lip. NECK: Supple. No enlargement of the thyroid gland. No significant cervical lymphadenopathy. No jugular venous distention at 30. LUNGS: Clear with no adventitious sounds. HEART: Regular rate. S1 and S2 are normal. There are no murmurs, gallops, clicks or rubs heard. ABDOMEN: Soft, slightly distended and mildly, tender. Liver and spleen are not palpably enlarged or tender. No palpable masses. No ascites. Bowel sounds are normoactive. RECTAL: Not examined EXTREMITIES: No rash, peripheral lymphadenopathy, clubbing or edema. : Diaper in place. NEUROLOGIC: No focal findings. Lethargic. - Constitutional Vitals: Vital Signs Temp Pulse Resp BP Pulse Ox 97.4 F L 84 16 124/80 96 03/12/16 08:00 03/12/16 08:00 03/12/16 08:00 03/12/16 09:28 03/12/16 08:00 Temperature -Last 24 Hours Temperature 97.4 F Temperature 98.3 F Temperature 97.9 F Temperature 97.7 F Temperature 97.4 F - Labs CBC & Chem 7: 03/11/16 00:50 03/11/16 07:24 Labs: Abnormal lab results Microbiology 03/04/16 09:18 Peripheral/Venous Blood Culture - Final NO GROWTH AFTER 5 DAYS 03/04/16 09:01 Peripheral/Venous Blood Culture - Final NO GROWTH AFTER 5 DAYS 03/04/16 Unknown Urine,Clean Catch Urine Culture - Final Escherichia Coli Imagin/12: MRI of the brain: No acute findings. Exam compromised by motion artifact.
--- NOTE | 2016-03-12 15:03 | Progress Note ---
Assessment and Plan Assessment and plan: --Metabolic encephalopathy/patient is unresponsive and confused Workup so far negative, MRI no acute intracranial abnormality noted Schedule for lumbar puncture today and fluid analysis, I also requested the lab to preserve some cerebrospinal fluid For more testing if needed, neurology recommended B12 which she received today Neurology, ID following --Dysphagia, secondary to metabolic encephalopathy Continue Dobbhoff feeds, no indication for PEG at this point --Acute renal failure probably secondary to vasomotor nephropathy gentle hydration closely monitor renal function avoid nephrotoxic medications consider nephrology evaluation if needed --Leukocytosis. Nonspecific, trending down --Positive urine cultures for Escherichia coli, ID following Recommend monitor off antibiotics --Hypernatremia. Resolved sodium is 135 today --Hypertension. Well controlled on Atenolol, lisinopril, clonidine prn. --Electrolyte imbalances replenish per protocol and monitor levels --Full code status --DVT prophylaxis with heparin DC planning possible case management and medically stable Consults and recommendations noted and appreciated Plan of care discussed with the at the bedside as well as her nurse and the case management History Interval history: Patient seen and evaluated medical records reviewed Remains lethargic and noncommunicative Scheduled for lumbar puncture today, with fluid analysis No new events reported by the nursing staff GI evaluation and recommendations noted and appreciated Hospitalist Physical - Constitutional Vitals: Temp Pulse Resp BP Pulse Ox 97.4 F L 84 16 124/80 96 03/12/16 08:00 03/12/16 08:00 03/12/16 08:00 03/12/16 09:28 03/12/16 08:00 General appearance: Present: no acute distress, cachectic, disheveled, other ( noncommunicative ) - EENT Eyes: Present: PERRL, EOM intact - Neck Neck: Present: supple, normal ROM - Respiratory Respiratory effort: normal Respiratory: bilateral: diminished, negative: rales, rhonchi, wheezing - Cardiovascular Rhythm: regular Heart Sounds: Present: S1 & S2 - Extremities Extremities: no ischemia, pulses intact, pulses symmetrical Peripheral Pulses: within normal limits - Abdominal General gastrointestinal: soft, non-tender, non-distended, normal bowel sounds - Integumentary Integumentary: Present: clear, warm - Psychiatric Psychiatric: other (noncommunicative lethargic) - Neurologic Neurologic: other (noncommunicative) Results - Labs CBC & Chem 7: 03/11/16 00:50 03/11/16 07:24 Labs: Laboratory Last Values WBC 24.3 K/mm3 (4.5-11.0) H 03/11/16 00:50 RBC 2.93 M/mm3 (3.65-5.03) L 03/11/16 00:50 Hgb 9.0 gm/dl (10.1-14.3) L 03/11/16 00:50 Hct 28.1 % (30.3-42.9) L 03/11/16 00:50 MCV 96 fl (79-97) 03/11/16 00:50 MCH 31 pg (28-32) 03/11/16 00:50 MCHC 32 % (30-34) 03/11/16 00:50 RDW 17.4 % (13.2-15.2) H 03/11/16 00:50 Plt Count 218 K/mm3 (140-440) 03/11/16 00:50 Lymph % (Auto) 11.1 % (13.4-35.0) L 03/02/16 18:35 [place] % (Auto) 6.1 % (0.0-7.3) 03/02/16 18:35 Eos % (Auto) 0.6 % (0.0-4.3) 03/02/16 18:35 Baso % (Auto) 0.7 % (0.0-1.8) 03/02/16 18:35 Lymph # 1.8 K/mm3 (1.2-5.4) 03/02/16 18:35 [place] # 1.0 K/mm3 (0.0-0.8) H 03/02/16 18:35 Eos # 0.1 K/mm3 (0.0-0.4) 03/02/16 18:35 Baso # 0.1 K/mm3 (0.0-0.1) 03/02/16 18:35 Add Manual Diff Complete 03/11/16 00:50 Total Counted 100 03/11/16 00:50 Seg Neutrophils % 81.5 % (40.0-70.0) H 03/02/16 18:35 Seg Neuts % (Manual) 74.0 % (40.0-70.0) H 03/11/16 00:50 Band Neutrophils % 4.0 % 03/11/16 00:50 Lymphocytes % (Manual) 10.0 % (13.4-35.0) L 03/11/16 00:50 Reactive Lymphs % (Man) 0 % 03/11/16 00:50 Monocytes % (Manual) 8.0 % (0.0-7.3) H 03/11/16 00:50 Eosinophils % (Manual) 4.0 % (0.0-4.3) 03/11/16 00:50 Basophils % (Manual) 0 % (0.0-1.8) 03/11/16 00:50 Metamyelocytes % 0 % 03/11/16 00:50 Myelocytes % 0 % 03/11/16 00:50 Promyelocytes % 0 % 03/11/16 00:50 Blast Cells % 0 % 03/11/16 00:50 Nucleated RBC % Not Reportable 03/11/16 00:50 Seg Neutrophils # 13.0 K/mm3 (1.8-7.7) H 03/02/16 18:35 Seg Neutrophils # Man 18.0 K/mm3 (1.8-7.7) H 03/11/16 00:50 Band Neutrophils # 1.0 K/mm3 03/11/16 00:50 Lymphocytes # (Manual) 2.4 K/mm3 (1.2-5.4) 03/11/16 00:50 Abs React Lymphs (Man) 0.0 K/mm3 03/11/16 00:50 Monocytes # (Manual) 1.9 K/mm3 (0.0-0.8) H 03/11/16 00:50 Eosinophils # (Manual) 1.0 K/mm3 (0.0-0.4) H 03/11/16 00:50 Basophils # (Manual) 0.0 K/mm3 (0.0-0.1) 03/11/16 00:50 Metamyelocytes # 0.0 K/mm3 03/11/16 00:50 Myelocytes # 0.0 K/mm3 03/11/16 00:50 Promyelocytes # 0.0 K/mm3 03/11/16 00:50 Blast Cells # 0.0 K/mm3 03/11/16 00:50 WBC Morphology Not Reportable 03/11/16 00:50 Hypersegmented Neuts Not Reportable 03/11/16 00:50 Hyposegmented Neuts Not Reportable 03/11/16 00:50 Hypogranular Neuts Not Reportable 03/11/16 00:50 Smudge Cells Not Reportable 03/11/16 00:50 Toxic Granulation Not Reportable 03/11/16 00:50 Toxic Vacuolation Not Reportable 03/11/16 00:50 Dohle Bodies Not Reportable 03/11/16 00:50 Pelger-Huet Anomaly Not Reportable 03/11/16 00:50 Betty Rods Not Reportable 03/11/16 00:50 Platelet Estimate Consistent w auto 03/11/16 00:50 Clumped Platelets Not Reportable 03/11/16 00:50 Plt Clumps, EDTA Not Reportable 03/11/16 00:50 Large Platelets Not Reportable 03/11/16 00:50 Giant Platelets Not Reportable 03/11/16 00:50 Platelet Satelliting Not Reportable 03/11/16 00:50 Plt Morphology Comment Not Reportable 03/11/16 00:50 RBC Morphology Not Reportable 03/11/16 00:50 Dimorphic RBCs Not Reportable 03/11/16 00:50 Polychromasia Not Reportable 03/11/16 00:50 Hypochromasia Not Reportable 03/11/16 00:50 Poikilocytosis Not Reportable 03/11/16 00:50 Anisocytosis 1+ 03/11/16 00:50 Microcytosis Not Reportable 03/11/16 00:50 Macrocytosis Not Reportable 03/11/16 00:50 Spherocytes Not Reportable 03/11/16 00:50 Pappenheimer Bodies Not Reportable 03/11/16 00:50 Sickle Cells Not Reportable 03/11/16 00:50 Target Cells Not Reportable 03/11/16 00:50 Tear Drop Cells Not Reportable 03/11/16 00:50 Ovalocytes Not Reportable 03/11/16 00:50 Helmet Cells Not Reportable 03/11/16 00:50 [place] Bodies Not Reportable 03/11/16 00:50 Hart Rings Not Reportable 03/11/16 00:50 Tim Cells Not Reportable 03/11/16 00:50 Bite Cells Not Reportable 03/11/16 00:50 Crenated Cell Not Reportable 03/11/16 00:50 Elliptocytes Not Reportable 03/11/16 00:50 Acanthocytes (Spur) Not Reportable 03/11/16 00:50 Rouleaux Not Reportable 03/11/16 00:50 Hemoglobin C Crystals Not Reportable 03/11/16 00:50 Schistocytes Not Reportable 03/11/16 00:50 Malaria parasites Not Reportable 03/11/16 00:50 Matthew Bodies Not Reportable 03/11/16 00:50 Hem Pathologist Commnt No 03/11/16 00:50 PT 13.0 Sec. (12.2-14.9) 03/12/16 09:50 INR 0.99 (0.87-1.13) 03/12/16 09:50 APTT 38.8 Sec. (24.2-36.6) H 03/12/16 09:50 Sodium 135 mmol/L (137-145) L D 03/11/16 07:24 Potassium 4.7 mmol/L (3.6-5.0) 03/11/16 07:24 Chloride 104.5 mmol/L (98-107) 03/11/16 07:24 Carbon Dioxide 22 mmol/L (22-30) 03/11/16 07:24 Anion Gap 13 mmol/L 03/11/16 07:24 BUN 27 mg/dL (7-17) H 03/11/16 07:24 Creatinine 1.8 mg/dL (0.7-1.2) H 03/11/16 07:24 Estimated GFR 35 ml/min 03/11/16 07:24 BUN/Creatinine Ratio 15.00 % 03/11/16 07:24 Glucose 136 mg/dL (65-100) H 03/11/16 07:24 POC Glucose 111 (70-105) H 03/12/16 12:10 Lactic Acid 1.7 mmol/L (0.7-2.0) 03/03/16 02:43 Calcium 7.5 mg/dL (8.4-10.2) L 03/11/16 07:24 Phosphorus 2.5 mg/dL (2.5-4.5) D 03/07/16 04:53 Magnesium 1.4 mg/dL (1.7-2.3) L 03/11/16 07:24 Total Bilirubin 1.4 mg/dL (0.1-1.2) H 03/05/16 07:39 AST 38 units/L (5-40) 03/05/16 07:39 ALT 17 units/L (7-56) 03/05/16 07:39 Alkaline Phosphatase 105 units/L (35-129) 03/05/16 07:39 Ammonia 55.0 umol/L (25-60) 03/07/16 04:53 Total Creatine Kinase 42 units/L (30-135) 03/02/16 18:35 CK-MB (CK-2) < 1.0 ng/mL (0.0-4.0) 03/02/16 18:35 CK-MB (CK-2) Rel Index 2.3 (0-4) 03/02/16 18:35 Troponin T < 0.010 ng/mL (0.00-0.029) 03/02/16 18:35 Total Protein 5.9 g/dL (6.3-8.2) L 03/05/16 07:39 Albumin 2.4 g/dL (3.9-5) L 03/05/16 07:39 Albumin/Globulin Ratio 0.7 % 03/05/16 07:39 TSH 0.427 mlU/mL (0.270-4.200) 03/04/16 19:38 Free T4 1.36 ng/dL (0.76-1.46) 03/02/16 18:35 Urine Color Vera (Yellow) 03/02/16 20:44 Urine Turbidity Clear (Clear) 03/02/16 20:44 Urine pH 7.0 (5.0-7.0) 03/02/16 20:44 Ur Specific [place] 1.023 (1.003-1.030) 03/02/16 20:44 Urine Protein 30 mg/dl mg/dL (Negative) 03/02/16 20:44 Urine Glucose (UA) Neg mg/dL (Negative) 03/02/16 20:44 Urine Ketones 20 mg/dL (Negative) 03/02/16 20:44 Urine Blood Neg (Negative) 03/02/16 20:44 Urine Nitrite Neg (Negative) 03/02/16 20:44 Urine Bilirubin Mod (Negative) 03/02/16 20:44 Urine Ictotest Positive (Negative) 03/02/16 20:44 Urine Urobilinogen 4.0 mg/dL (<2.0) 03/02/16 20:44 Ur Leukocyte Esterase Tr (Negative) 03/02/16 20:44 Urine WBC (Auto) < 1.0 /HPF (0.0-6.0) 03/02/16 20:44 Urine RBC (Auto) 1.0 /HPF (0.0-6.0) 03/02/16 20:44 U Epithel Cells (Auto) 3.0 /HPF (0-13.0) 03/02/16 20:44 Urine Bacteria (Auto) 1+ /HPF (Negative) 03/02/16 20:44 Urine Mucus 3+ /HPF 03/02/16 20:44
--- NOTE | 2016-03-12 15:12 | Procedure Note ---
Date of procedure: 03/12/16 Pre-op diagnosis: mental changes Post-op diagnosis: same Procedure: lumbar puncture Findings: clear fluid Anesthesia: local Surgeon: JEFF SCHROEDER Estimated blood loss: none Pathology: list (spinal fluid) Specimen disposition: to lab Condition: stable Disposition: floor
--- NOTE | 2016-03-12 15:15 | Fluoroscopy Report ---
Lumbar puncture: The patient was placed prone on a fluoroscopic table. The skin was cleansed and 1% lidocaine used for local anesthesia. A successful lumbar puncture was made of L4 using an 18-gauge needle under fluoroscopic observation. Approximately 12 cc of clear fluid is was removed into 3 vials for laboratory evaluation. No complications encountered.
[2016-03-12 15:29] LABS: Glucose,CSF 59 mg/dL
[2016-03-12 15:38] LABS: Appearance,CSF Clear; CSF Diff Status Complete
[2016-03-12 15:39] LABS: White Blood Cell,CSF 0 /mm3 (1-10)
[2016-03-12 16:39] LABS: Basophils CSF 0 %
[2016-03-13] MEDS: NOVOLOG SUB-Q SCH ×4 (01:02→19:40)
[2016-03-13] MEDS: PERCOCET 5/325 PO PRN (04:25)
[2016-03-13] MEDS: NACL 0.9% 1000 ML 1,000 ML IV SCH ×2 (04:28→12:49)
[2016-03-13 05:29] LABS: Basophils % (Auto) 0.7 % (0.0-1.8); Eosinophils % (Auto) 2.7 % (0.0-4.3); Hematocrit 25.7 % (30.3-42.9); Hemoglobin 8.5 gm/dl (10.1-14.3); Mean Corpuscular HGB Conc 33 % (30-34); Mean Corpuscular Hemoglobin 32 pg (28-32); Mean Corpuscular Volume 96 fl (79-97); Platelet Count 205 K/mm3 (140-440); Red Blood Count 2.68 M/mm3 (3.65-5.03); Red Cell Distribution Width 17.4 % (13.2-15.2); White Blood Count 19.2 K/mm3 (4.5-11.0)
--- NOTE | 2016-03-13 05:38 | XRay Report ---
FINAL REPORT PROCEDURE: XR CHEST 1V AP TECHNIQUE: Chest radiograph anteroposterior view. CPT 47062 HISTORY: Possible aspiration COMPARISON: No prior studies are available for comparison. FINDINGS: Heart: Normal. Mediastinum/Vessels: Normal. Lungs/Pleural space: Mild bilateral lower lung atelectasis. No effusion or pneumothorax.. Bony thorax: No acute osseous abnormality. Life support devices: Right PICC catheter ends in the SVC. IMPRESSION: Bilateral lower lung atelectasis. Right PICC catheter ends in the SVC.
[2016-03-13 05:49] LABS: BUN/Creatinine Ratio 14.76; Calcium 7.8 mg/dL (8.4-10.2); Chloride 105.2 mmol/L (98-107); Magnesium 3.1 mg/dL (1.7-2.3); Potassium 4.4 mmol/L (3.6-5.0)
[2016-03-13] MEDS: HEPARIN SUB-Q SCH ×2 (08:01→16:23)
--- NOTE | 2016-03-13 10:14 | Progress Note ---
Assessment and Plan Assessment and plan: --Metabolic encephalopathy/patient is unresponsive and confused Workup so far negative, MRI no acute intracranial abnormality noted Schedule for lumbar puncture today and fluid analysis, I also requested the lab to preserve some cerebrospinal fluid For more testing if needed, neurology recommended B12 which she received today Neurology, ID following --Dysphagia, secondary to metabolic encephalopathy Patient pulled of Dobbhoff, replace and start troops, swallow evaluation, --Acute renal failure probably secondary to vasomotor nephropathy gentle hydration closely monitor renal function avoid nephrotoxic medications consider nephrology evaluation if needed --Leukocytosis. Nonspecific, trending down --Positive urine cultures for Escherichia coli, ID following Recommend monitor off antibiotics --Hypernatremia. Resolved sodium is 135 today --Hypertension. Well controlled on Atenolol, lisinopril, clonidine prn. --Electrolyte imbalances replenish per protocol and monitor levels --Full code status --DVT prophylaxis with heparin DC planning possible case management and medically stable Consults and recommendations noted and appreciated Plan of care discussed with the at the bedside as well as her nurse and the case management History Interval history: Patient seen and evaluated medical records reviewed More alert and agitated, responding to very simple questions appropriately intermittently Confused most of the time Vital signs reviewed Hospitalist Physical - Constitutional Vitals: Temp Pulse Resp BP Pulse Ox 97.4 F L 72 18 150/77 95 03/13/16 08:00 03/13/16 09:14 03/13/16 09:14 03/13/16 08:00 03/13/16 09:14 General appearance: Present: no acute distress, cachectic, disheveled, other ( agitated) - EENT Eyes: Present: PERRL, EOM intact - Neck Neck: Present: supple, normal ROM - Respiratory Respiratory effort: normal Respiratory: negative: rales, rhonchi, wheezing - Cardiovascular Rhythm: regular Heart Sounds: Present: S1 & S2 - Extremities Extremities: no ischemia, pulses intact, pulses symmetrical Peripheral Pulses: within normal limits - Abdominal General gastrointestinal: soft, non-tender, non-distended, normal bowel sounds - Integumentary Integumentary: Present: clear, warm - Psychiatric Psychiatric: agitated, other (restless) - Neurologic Neurologic: moves all extremities Results - Labs CBC & Chem 7: 03/13/16 05:00 03/13/16 05:00 Labs: Laboratory Last Values WBC 19.2 K/mm3 (4.5-11.0) H 03/13/16 05:00 RBC 2.68 M/mm3 (3.65-5.03) L 03/13/16 05:00 Hgb 8.5 gm/dl (10.1-14.3) L 03/13/16 05:00 Hct 25.7 % (30.3-42.9) L 03/13/16 05:00 MCV 96 fl (79-97) 03/13/16 05:00 MCH 32 pg (28-32) 03/13/16 05:00 MCHC 33 % (30-34) 03/13/16 05:00 RDW 17.4 % (13.2-15.2) H 03/13/16 05:00 Plt Count 205 K/mm3 (140-440) 03/13/16 05:00 Lymph % (Auto) 9.3 % (13.4-35.0) L 03/13/16 05:00 [place] % (Auto) 8.7 % (0.0-7.3) H 03/13/16 05:00 Eos % (Auto) 2.7 % (0.0-4.3) 03/13/16 05:00 Baso % (Auto) 0.7 % (0.0-1.8) 03/13/16 05:00 Lymph # 1.8 K/mm3 (1.2-5.4) 03/13/16 05:00 [place] # 1.7 K/mm3 (0.0-0.8) H 03/13/16 05:00 Eos # 0.5 K/mm3 (0.0-0.4) H 03/13/16 05:00 Baso # 0.1 K/mm3 (0.0-0.1) 03/13/16 05:00 Add Manual Diff Complete 03/11/16 00:50 Total Counted 100 03/11/16 00:50 Seg Neutrophils % 78.6 % (40.0-70.0) H 03/13/16 05:00 Seg Neuts % (Manual) 74.0 % (40.0-70.0) H 03/11/16 00:50 Band Neutrophils % 4.0 % 03/11/16 00:50 Lymphocytes % (Manual) 10.0 % (13.4-35.0) L 03/11/16 00:50 Reactive Lymphs % (Man) 0 % 03/11/16 00:50 Monocytes % (Manual) 8.0 % (0.0-7.3) H 03/11/16 00:50 Eosinophils % (Manual) 4.0 % (0.0-4.3) 03/11/16 00:50 Basophils % (Manual) 0 % (0.0-1.8) 03/11/16 00:50 Metamyelocytes % 0 % 03/11/16 00:50 Myelocytes % 0 % 03/11/16 00:50 Promyelocytes % 0 % 03/11/16 00:50 Blast Cells % 0 % 03/11/16 00:50 Nucleated RBC % Not Reportable 03/11/16 00:50 Seg Neutrophils # 15.1 K/mm3 (1.8-7.7) H 03/13/16 05:00 Seg Neutrophils # Man 18.0 K/mm3 (1.8-7.7) H 03/11/16 00:50 Band Neutrophils # 1.0 K/mm3 03/11/16 00:50 Lymphocytes # (Manual) 2.4 K/mm3 (1.2-5.4) 03/11/16 00:50 Abs React Lymphs (Man) 0.0 K/mm3 03/11/16 00:50 Monocytes # (Manual) 1.9 K/mm3 (0.0-0.8) H 03/11/16 00:50 Eosinophils # (Manual) 1.0 K/mm3 (0.0-0.4) H 03/11/16 00:50 Basophils # (Manual) 0.0 K/mm3 (0.0-0.1) 03/11/16 00:50 Metamyelocytes # 0.0 K/mm3 03/11/16 00:50 Myelocytes # 0.0 K/mm3 03/11/16 00:50 Promyelocytes # 0.0 K/mm3 03/11/16 00:50 Blast Cells # 0.0 K/mm3 03/11/16 00:50 WBC Morphology Not Reportable 03/11/16 00:50 Hypersegmented Neuts Not Reportable 03/11/16 00:50 Hyposegmented Neuts Not Reportable 03/11/16 00:50 Hypogranular Neuts Not Reportable 03/11/16 00:50 Smudge Cells Not Reportable 03/11/16 00:50 Toxic Granulation Not Reportable 03/11/16 00:50 Toxic Vacuolation Not Reportable 03/11/16 00:50 Dohle Bodies Not Reportable 03/11/16 00:50 Pelger-Huet Anomaly Not Reportable 03/11/16 00:50 Betty Rods Not Reportable 03/11/16 00:50 Platelet Estimate Consistent w auto 03/11/16 00:50 Clumped Platelets Not Reportable 03/11/16 00:50 Plt Clumps, EDTA Not Reportable 03/11/16 00:50 Large Platelets Not Reportable 03/11/16 00:50 Giant Platelets Not Reportable 03/11/16 00:50 Platelet Satelliting Not Reportable 03/11/16 00:50 Plt Morphology Comment Not Reportable 03/11/16 00:50 RBC Morphology Not Reportable 03/11/16 00:50 Dimorphic RBCs Not Reportable 03/11/16 00:50 Polychromasia Not Reportable 03/11/16 00:50 Hypochromasia Not Reportable 03/11/16 00:50 Poikilocytosis Not Reportable 03/11/16 00:50 Anisocytosis 1+ 03/11/16 00:50 Microcytosis Not Reportable 03/11/16 00:50 Macrocytosis Not Reportable 03/11/16 00:50 Spherocytes Not Reportable 03/11/16 00:50 Pappenheimer Bodies Not Reportable 03/11/16 00:50 Sickle Cells Not Reportable 03/11/16 00:50 Target Cells Not Reportable 03/11/16 00:50 Tear Drop Cells Not Reportable 03/11/16 00:50 Ovalocytes Not Reportable 03/11/16 00:50 Helmet Cells Not Reportable 03/11/16 00:50 [place] Bodies Not Reportable 03/11/16 00:50 [place] Rings Not Reportable 03/11/16 00:50 [place] Cells Not Reportable 03/11/16 00:50 Bite Cells Not Reportable 03/11/16 00:50 Crenated Cell Not Reportable 03/11/16 00:50 Elliptocytes Not Reportable 03/11/16 00:50 Acanthocytes (Spur) Not Reportable 03/11/16 00:50 Rouleaux Not Reportable 03/11/16 00:50 Hemoglobin C Crystals Not Reportable 03/11/16 00:50 Schistocytes Not Reportable 03/11/16 00:50 Malaria parasites Not Reportable 03/11/16 00:50 Matthew Bodies Not Reportable 03/11/16 00:50 Hem Pathologist Commnt No 03/11/16 00:50 PT 13.0 Sec. (12.2-14.9) 03/12/16 09:50 INR 0.99 (0.87-1.13) 03/12/16 09:50 APTT 38.8 Sec. (24.2-36.6) H 03/12/16 09:50 Sodium 137 mmol/L (137-145) 03/13/16 05:00 Potassium 4.4 mmol/L (3.6-5.0) 03/13/16 05:00 Chloride 105.2 mmol/L (98-107) 03/13/16 05:00 Carbon Dioxide 20 mmol/L (22-30) L 03/13/16 05:00 Anion Gap 16 mmol/L 03/13/16 05:00 BUN 31 mg/dL (7-17) H 03/13/16 05:00 Creatinine 2.1 mg/dL (0.7-1.2) H 03/13/16 05:00 Estimated GFR 29 ml/min 03/13/16 05:00 BUN/Creatinine Ratio 14.76 % 03/13/16 05:00 Glucose 85 mg/dL (65-100) 03/13/16 05:00 POC Glucose 82 (70-105) 03/13/16 06:31 Lactic Acid 1.7 mmol/L (0.7-2.0) 03/03/16 02:43 Calcium 7.8 mg/dL (8.4-10.2) L 03/13/16 05:00 Phosphorus 2.5 mg/dL (2.5-4.5) D 03/07/16 04:53 Magnesium 3.1 mg/dL (1.7-2.3) H 03/13/16 05:00 Total Bilirubin 1.4 mg/dL (0.1-1.2) H 03/05/16 07:39 AST 38 units/L (5-40) 03/05/16 07:39 ALT 17 units/L (7-56) 03/05/16 07:39 Alkaline Phosphatase 105 units/L (35-129) 03/05/16 07:39 Ammonia 55.0 umol/L (25-60) 03/07/16 04:53 Total Creatine Kinase 42 units/L (30-135) 03/02/16 18:35 CK-MB (CK-2) < 1.0 ng/mL (0.0-4.0) 03/02/16 18:35 CK-MB (CK-2) Rel Index 2.3 (0-4) 03/02/16 18:35 Troponin T < 0.010 ng/mL (0.00-0.029) 03/02/16 18:35 Total Protein 5.9 g/dL (6.3-8.2) L 03/05/16 07:39 Albumin 2.4 g/dL (3.9-5) L 03/05/16 07:39 Albumin/Globulin Ratio 0.7 % 03/05/16 07:39 TSH 0.427 mlU/mL (0.270-4.200) 03/04/16 19:38 Free T4 1.36 ng/dL (0.76-1.46) 03/02/16 18:35 Urine Color Vera (Yellow) 03/02/16 20:44 Urine Turbidity Clear (Clear) 03/02/16 20:44 Urine pH 7.0 (5.0-7.0) 03/02/16 20:44 Ur Specific [place] 1.023 (1.003-1.030) 03/02/16 20:44 Urine Protein 30 mg/dl mg/dL (Negative) 03/02/16 20:44 Urine Glucose (UA) Neg mg/dL (Negative) 03/02/16 20:44 Urine Ketones 20 mg/dL (Negative) 03/02/16 20:44 Urine Blood Neg (Negative) 03/02/16 20:44 Urine Nitrite Neg (Negative) 03/02/16 20:44 Urine Bilirubin Mod (Negative) 03/02/16 20:44 Urine Ictotest Positive (Negative) 03/02/16 20:44 Urine Urobilinogen 4.0 mg/dL (<2.0) 03/02/16 20:44 Ur Leukocyte Esterase Tr (Negative) 03/02/16 20:44 Urine WBC (Auto) < 1.0 /HPF (0.0-6.0) 03/02/16 20:44 Urine RBC (Auto) 1.0 /HPF (0.0-6.0) 03/02/16 20:44 U Epithel Cells (Auto) 3.0 /HPF (0-13.0) 03/02/16 20:44 Urine Bacteria (Auto) 1+ /HPF (Negative) 03/02/16 20:44 Urine Mucus 3+ /HPF 03/02/16 20:44 CSF Appearance Clear 03/12/16 Unknown CSF Color Colorless 03/12/16 Unknown CSF WBC 0 /mm3 (1-10) 03/12/16 Unknown CSF RBC 102 /mm3 (0-0) 03/12/16 Unknown CSF Seg Neutrophils 0 % (0-6) 03/12/16 Unknown CSF Lymphocytes % 0 % (40-80) 03/12/16 Unknown CSF Reactive Lymphs 0 % 03/12/16 Unknown CSF Monocytes % 0 % (15-45) 03/12/16 Unknown CSF Eosinophils % 0 % 03/12/16 Unknown CSF Basophils 0 % 03/12/16 Unknown CSF Comment No cells seen 03/12/16 Unknown CSF Pathologist Review C 03/12/16 Unknown CSF Glucose 59 mg/dL 03/12/16 Unknown CSF Total Protein 48 mg/dL 03/12/16 Unknown
[2016-03-13] MEDS: FOLVITE PO SCH (12:48)
[2016-03-13] MEDS: TENORMIN PO SCH (12:48)
[2016-03-13] MEDS: VITAMIN B-1 FEEDTUBE SCH (12:48)
--- NOTE | 2016-03-13 14:21 | Progress Note ---
Assessment and Plan Current antibiotics: None Previous antibiotics: Zosyn 4.5 grams IV q8h 03/03-03/07 Levaquin 750 mg IV q24h 03/03-03/06 ASSESSMENT: Edith Coelho is a 60-year-old female with hypertension, obstructive sleep apnea and COPD who was admitted to [facility] on 03/02/16 with a one-month history of decreased appetite and increasing weakness. She has had a persistent leukocytosis. Problem list: 1. Leukocytosis -Likely reactive secondary to whatever is causing her encephalopathy: ? ETOH withdrawal, etc. -Rule out infection although work up negative to date and no obvious source on exam -Rule out primary hematologic reason 2. AMS -Rule out toxic metabolic encephalopathy -Rule out ETOH withdrawal -Doubt [employer] infection -MRI with no obvious abnormalities. --CSF without pleocytosis, no meningeal problems 3. Gram negative rods in urine without pyuria -Urinalysis not suggestive of UTI with no pyuria PLAN: 1. Continue to follow off of antibiotics 2. May need to consider bone marrow 3. will continue to follow with you Subjective Date of service: 03/13/16 Principal diagnosis: Leukocytosis Interval history: Patient seen in bed agitated, does not follow commands. She does not respond to questions, Objective - Constitutional Vitals: Selected Entries 03/13/16 03/13/16 08:00 09:14 Temperature 97.4 F L Pulse Rate [ 158 H From Monitor] Pulse Rate [ 72 Right Radial] Respiratory 18 Rate O2 Sat by Pulse 95 Oximetry Blood Pressure 150/77 [Right Radial Artery] Blood Pressure 101 Mean [Right Radial Artery] General appearance: Present: no acute distress, well-nourished - EENT Eyes: PERRL (patient does not open eyes to perform examination) ENT: poor dentition Ears: bilateral: normal - Neck Neck: no enlarged thyroid, no masses or JVD - Respiratory Respiratory: bilateral: other (difficult to assess with patient yelling) - Breasts Breasts: deferred - Cardiovascular Rhythm: regular Heart Sounds: Present: S1 & S2 Extremities: no ischemia, No edema, normal temperature - Gastrointestinal General gastrointestinal: Present: soft, normal bowel sounds - Genitourinary Female genitourinary: deferred - Integumentary Integumentary: clear, warm - Labs CBC & Chem 7: 03/13/16 05:00 03/13/16 05:00 Labs: Microbiology 03/04/16 Unknown Urine,Clean Catch Urine Culture - Final Escherichia Coli 03/04/16 09:18 Peripheral/Venous Blood Culture - Final NO GROWTH AFTER 5 DAYS 03/04/16 09:01 Peripheral/Venous Blood Culture - Final NO GROWTH AFTER 5 DAYS 03/12/16 Unknown Cerebral Spinal Fluid CSF Culture - Preliminary Laboratory Tests 03/11/16 03/12/16 03/13/16 00:50 Unknown 05:00 WBC 24.3 H 19.2 H Plt Count 205 Creatinine CSF WBC 0 CSF RBC 102 CSF Seg Neutrophils 0 CSF Glucose 59 CSF Total Protein 48 03/13/16 05:00 WBC Plt Count Creatinine 2.1 H CSF WBC CSF RBC CSF Seg Neutrophils CSF Glucose CSF Total Protein
--- NOTE | 2016-03-13 16:03 | XRay Report ---
FINAL REPORT PROCEDURE: XR ABDOMEN 1V AP TECHNIQUE: AP supine portable radiograph of the abdomen was obtained at 03/13/2016 19:55 (GMT) . HISTORY: Dobhoff PLacement COMPARISON: No prior studies are available for comparison. FINDINGS: Metallic end of the feeding tube is visualized in the distal esophagus at the gastroesophageal junction and the tube needs to be advanced into the stomach. Bowel gas pattern is unremarkable. No abnormal masses are seen. Degenerative changes are seen in the lower half of the lumbar spine. IMPRESSION: Doppler feeding tube tip at the inferior aspect of the esophagus at the gastroesophageal junction and needs to be advanced into the stomach.
[2016-03-13] MEDS: ATIVAN IV PRN (17:36)
[2016-03-13] MEDS ORDERED: PANCREAZE DR 10,500 UNIT FEEDTUBE PRN (19:16)
[2016-03-13] MEDS ORDERED: SIMPLE SYRUP FEEDTUBE PRN ×2 (19:16)
[2016-03-13] MEDS ORDERED: SODIUM BICARBONATE FEEDTUBE PRN (19:16)
[2016-03-13] MEDS: D5W 1,000 ML IV SCH (19:43)
[2016-03-14] MEDS: HEPARIN SUB-Q SCH ×4 (00:06→21:46)
[2016-03-14] MEDS: ATIVAN IV PRN ×2 (00:06→04:56)
[2016-03-14] MEDS: NOVOLOG SUB-Q SCH ×4 (00:34→18:40)
--- NOTE | 2016-03-14 01:18 | XRay Report ---
FINAL REPORT PROCEDURE: XR ABDOMEN 1V AP TECHNIQUE: Abdominal radiograph, single supine AP view. HISTORY: Dobbhoff placement confirmation COMPARISON: No prior studies are available for comparison. FINDINGS: Bowel gas pattern:Nonobstructive. Masses or calcifications:None. Bony structures:No significant abnormality. Other:The feeding tube ends in the lower stomach. IMPRESSION: The feeding tube ends in the lower stomach
[2016-03-14] MEDS ORDERED: NACL 0.9% 500 ML IV ONE (12:06)
[2016-03-14] MEDS: TENORMIN PO SCH (12:09)
[2016-03-14] MEDS: FOLVITE PO SCH (12:20)
[2016-03-14] MEDS: VITAMIN B-1 FEEDTUBE SCH (12:22)
[2016-03-14] MEDS: NACL 0.9% 1000 ML IV SCH ×2 (13:29→22:34)
--- NOTE | 2016-03-14 18:35 | Progress Note ---
Assessment and Plan Assessment and plan: --Metabolic encephalopathy/patient is unresponsive and confused Workup so far negative, MRI no acute intracranial abnormality noted Lumbar puncture and CSF analysis negative --Dysphagia, secondary to metabolic encephalopathy Patient pulled of Dobbhoff, replace and start troops, swallow evaluation, --Acute renal failure probably secondary to vasomotor nephropathy gentle hydration closely monitor renal function avoid nephrotoxic medications consider --Leukocytosis. Nonspecific, trending down --Positive urine cultures for Escherichia coli, ID following Recommend monitor off antibiotics --Hypernatremia. Resolved sodium is 135 today --Hypertension. Well controlled on Atenolol, lisinopril, clonidine prn. --Full code status --DVT prophylaxis with heparin Physical therapy when patient is more alert Consults and recommendations noted and appreciated Plan of care discussed with the at the bedside as well as her nurse and the case management History Interval history: Patient seen and evaluated medical records reviewed Patient was more alert and awake yesterday however was agitated and was pulling out everything so patient was sedated Patient is lethargic opening eyes upon calling names minimally communicative Receiving Dobbhoff feeds Vital signs reviewed Hospitalist Physical - Constitutional Vitals: Temp Pulse Resp BP Pulse Ox 98 F 72 18 116/78 99 03/14/16 16:00 03/14/16 16:00 03/14/16 16:00 03/14/16 16:00 03/14/16 16:00 General appearance: Present: no acute distress, cachectic, disheveled, other ( noncommunicative ) - EENT Eyes: Present: PERRL, EOM intact - Neck Neck: Present: supple, normal ROM - Respiratory Respiratory effort: normal Respiratory: bilateral: diminished, negative: rales, rhonchi, wheezing - Cardiovascular Rhythm: regular Heart Sounds: Present: S1 & S2 - Extremities Extremities: no ischemia, pulses intact, pulses symmetrical Peripheral Pulses: within normal limits - Abdominal General gastrointestinal: soft, non-tender, non-distended, normal bowel sounds - Integumentary Integumentary: Present: clear, warm - Psychiatric Psychiatric: other (confused and lethargic) - Neurologic Neurologic: moves all extremities Results - Labs CBC & Chem 7: 03/13/16 05:00 03/13/16 05:00 Labs: Laboratory Last Values WBC 19.2 K/mm3 (4.5-11.0) H 03/13/16 05:00 RBC 2.68 M/mm3 (3.65-5.03) L 03/13/16 05:00 Hgb 8.5 gm/dl (10.1-14.3) L 03/13/16 05:00 Hct 25.7 % (30.3-42.9) L 03/13/16 05:00 MCV 96 fl (79-97) 03/13/16 05:00 MCH 32 pg (28-32) 03/13/16 05:00 MCHC 33 % (30-34) 03/13/16 05:00 RDW 17.4 % (13.2-15.2) H 03/13/16 05:00 Plt Count 205 K/mm3 (140-440) 03/13/16 05:00 Lymph % (Auto) 9.3 % (13.4-35.0) L 03/13/16 05:00 [place] % (Auto) 8.7 % (0.0-7.3) H 03/13/16 05:00 Eos % (Auto) 2.7 % (0.0-4.3) 03/13/16 05:00 Baso % (Auto) 0.7 % (0.0-1.8) 03/13/16 05:00 Lymph # 1.8 K/mm3 (1.2-5.4) 03/13/16 05:00 [place] # 1.7 K/mm3 (0.0-0.8) H 03/13/16 05:00 Eos # 0.5 K/mm3 (0.0-0.4) H 03/13/16 05:00 Baso # 0.1 K/mm3 (0.0-0.1) 03/13/16 05:00 Add Manual Diff Complete 03/11/16 00:50 Total Counted 100 03/11/16 00:50 Seg Neutrophils % 78.6 % (40.0-70.0) H 03/13/16 05:00 Seg Neuts % (Manual) 74.0 % (40.0-70.0) H 03/11/16 00:50 Band Neutrophils % 4.0 % 03/11/16 00:50 Lymphocytes % (Manual) 10.0 % (13.4-35.0) L 03/11/16 00:50 Reactive Lymphs % (Man) 0 % 03/11/16 00:50 Monocytes % (Manual) 8.0 % (0.0-7.3) H 03/11/16 00:50 Eosinophils % (Manual) 4.0 % (0.0-4.3) 03/11/16 00:50 Basophils % (Manual) 0 % (0.0-1.8) 03/11/16 00:50 Metamyelocytes % 0 % 03/11/16 00:50 Myelocytes % 0 % 03/11/16 00:50 Promyelocytes % 0 % 03/11/16 00:50 Blast Cells % 0 % 03/11/16 00:50 Nucleated RBC % Not Reportable 03/11/16 00:50 Seg Neutrophils # 15.1 K/mm3 (1.8-7.7) H 03/13/16 05:00 Seg Neutrophils # Man 18.0 K/mm3 (1.8-7.7) H 03/11/16 00:50 Band Neutrophils # 1.0 K/mm3 03/11/16 00:50 Lymphocytes # (Manual) 2.4 K/mm3 (1.2-5.4) 03/11/16 00:50 Abs React Lymphs (Man) 0.0 K/mm3 03/11/16 00:50 Monocytes # (Manual) 1.9 K/mm3 (0.0-0.8) H 03/11/16 00:50 Eosinophils # (Manual) 1.0 K/mm3 (0.0-0.4) H 03/11/16 00:50 Basophils # (Manual) 0.0 K/mm3 (0.0-0.1) 03/11/16 00:50 Metamyelocytes # 0.0 K/mm3 03/11/16 00:50 Myelocytes # 0.0 K/mm3 03/11/16 00:50 Promyelocytes # 0.0 K/mm3 03/11/16 00:50 Blast Cells # 0.0 K/mm3 03/11/16 00:50 WBC Morphology Not Reportable 03/11/16 00:50 Hypersegmented Neuts Not Reportable 03/11/16 00:50 Hyposegmented Neuts Not Reportable 03/11/16 00:50 Hypogranular Neuts Not Reportable 03/11/16 00:50 Smudge Cells Not Reportable 03/11/16 00:50 Toxic Granulation Not Reportable 03/11/16 00:50 Toxic Vacuolation Not Reportable 03/11/16 00:50 Dohle Bodies Not Reportable 03/11/16 00:50 Pelger-Huet Anomaly Not Reportable 03/11/16 00:50 Betty Rods Not Reportable 03/11/16 00:50 Platelet Estimate Consistent w auto 03/11/16 00:50 Clumped Platelets Not Reportable 03/11/16 00:50 Plt Clumps, EDTA Not Reportable 03/11/16 00:50 Large Platelets Not Reportable 03/11/16 00:50 Giant Platelets Not Reportable 03/11/16 00:50 Platelet Satelliting Not Reportable 03/11/16 00:50 Plt Morphology Comment Not Reportable 03/11/16 00:50 RBC Morphology Not Reportable 03/11/16 00:50 Dimorphic RBCs Not Reportable 03/11/16 00:50 Polychromasia Not Reportable 03/11/16 00:50 Hypochromasia Not Reportable 03/11/16 00:50 Poikilocytosis Not Reportable 03/11/16 00:50 Anisocytosis 1+ 03/11/16 00:50 Microcytosis Not Reportable 03/11/16 00:50 Macrocytosis Not Reportable 03/11/16 00:50 Spherocytes Not Reportable 03/11/16 00:50 Pappenheimer Bodies Not Reportable 03/11/16 00:50 Sickle Cells Not Reportable 03/11/16 00:50 Target Cells Not Reportable 03/11/16 00:50 Tear Drop Cells Not Reportable 03/11/16 00:50 Ovalocytes Not Reportable 03/11/16 00:50 Helmet Cells Not Reportable 03/11/16 00:50 [place] Bodies Not Reportable 03/11/16 00:50 [place] Rings Not Reportable 03/11/16 00:50 [place] Cells Not Reportable 03/11/16 00:50 Bite Cells Not Reportable 03/11/16 00:50 Crenated Cell Not Reportable 03/11/16 00:50 Elliptocytes Not Reportable 03/11/16 00:50 Acanthocytes (Spur) Not Reportable 03/11/16 00:50 Rouleaux Not Reportable 03/11/16 00:50 Hemoglobin C Crystals Not Reportable 03/11/16 00:50 Schistocytes Not Reportable 03/11/16 00:50 Malaria parasites Not Reportable 03/11/16 00:50 Matthew Bodies Not Reportable 03/11/16 00:50 Hem Pathologist Commnt No 03/11/16 00:50 PT 13.0 Sec. (12.2-14.9) 03/12/16 09:50 INR 0.99 (0.87-1.13) 03/12/16 09:50 APTT 38.8 Sec. (24.2-36.6) H 03/12/16 09:50 Sodium 137 mmol/L (137-145) 03/13/16 05:00 Potassium 4.4 mmol/L (3.6-5.0) 03/13/16 05:00 Chloride 105.2 mmol/L (98-107) 03/13/16 05:00 Carbon Dioxide 20 mmol/L (22-30) L 03/13/16 05:00 Anion Gap 16 mmol/L 03/13/16 05:00 BUN 31 mg/dL (7-17) H 03/13/16 05:00 Creatinine 2.1 mg/dL (0.7-1.2) H 03/13/16 05:00 Estimated GFR 29 ml/min 03/13/16 05:00 BUN/Creatinine Ratio 14.76 % 03/13/16 05:00 Glucose 85 mg/dL (65-100) 03/13/16 05:00 POC Glucose 107 (70-105) H 03/14/16 13:48 Lactic Acid 1.7 mmol/L (0.7-2.0) 03/03/16 02:43 Calcium 7.8 mg/dL (8.4-10.2) L 03/13/16 05:00 Phosphorus 2.5 mg/dL (2.5-4.5) D 03/07/16 04:53 Magnesium 3.1 mg/dL (1.7-2.3) H 03/13/16 05:00 Total Bilirubin 1.4 mg/dL (0.1-1.2) H 03/05/16 07:39 AST 38 units/L (5-40) 03/05/16 07:39 ALT 17 units/L (7-56) 03/05/16 07:39 Alkaline Phosphatase 105 units/L (35-129) 03/05/16 07:39 Ammonia 55.0 umol/L (25-60) 03/07/16 04:53 Total Creatine Kinase 42 units/L (30-135) 03/02/16 18:35 CK-MB (CK-2) < 1.0 ng/mL (0.0-4.0) 03/02/16 18:35 CK-MB (CK-2) Rel Index 2.3 (0-4) 03/02/16 18:35 Troponin T < 0.010 ng/mL (0.00-0.029) 03/02/16 18:35 Total Protein 5.9 g/dL (6.3-8.2) L 03/05/16 07:39 Albumin 2.4 g/dL (3.9-5) L 03/05/16 07:39 Albumin/Globulin Ratio 0.7 % 03/05/16 07:39 TSH 0.427 mlU/mL (0.270-4.200) 03/04/16 19:38 Free T4 1.36 ng/dL (0.76-1.46) 03/02/16 18:35 Urine Color Vera (Yellow) 03/02/16 20:44 Urine Turbidity Clear (Clear) 03/02/16 20:44 Urine pH 7.0 (5.0-7.0) 03/02/16 20:44 Ur Specific [place] 1.023 (1.003-1.030) 03/02/16 20:44 Urine Protein 30 mg/dl mg/dL (Negative) 03/02/16 20:44 Urine Glucose (UA) Neg mg/dL (Negative) 03/02/16 20:44 Urine Ketones 20 mg/dL (Negative) 03/02/16 20:44 Urine Blood Neg (Negative) 03/02/16 20:44 Urine Nitrite Neg (Negative) 03/02/16 20:44 Urine Bilirubin Mod (Negative) 03/02/16 20:44 Urine Ictotest Positive (Negative) 03/02/16 20:44 Urine Urobilinogen 4.0 mg/dL (<2.0) 03/02/16 20:44 Ur Leukocyte Esterase Tr (Negative) 03/02/16 20:44 Urine WBC (Auto) < 1.0 /HPF (0.0-6.0) 03/02/16 20:44 Urine RBC (Auto) 1.0 /HPF (0.0-6.0) 03/02/16 20:44 U Epithel Cells (Auto) 3.0 /HPF (0-13.0) 03/02/16 20:44 Urine Bacteria (Auto) 1+ /HPF (Negative) 03/02/16 20:44 Urine Mucus 3+ /HPF 03/02/16 20:44 CSF Appearance Clear 03/12/16 Unknown CSF Color Colorless 03/12/16 Unknown CSF WBC 0 /mm3 (1-10) 03/12/16 Unknown CSF RBC 102 /mm3 (0-0) 03/12/16 Unknown CSF Seg Neutrophils 0 % (0-6) 03/12/16 Unknown CSF Lymphocytes % 0 % (40-80) 03/12/16 Unknown CSF Reactive Lymphs 0 % 03/12/16 Unknown CSF Monocytes % 0 % (15-45) 03/12/16 Unknown CSF Eosinophils % 0 % 03/12/16 Unknown CSF Basophils 0 % 03/12/16 Unknown CSF Comment No cells seen 03/12/16 Unknown CSF Pathologist Review C 03/12/16 Unknown CSF Glucose 59 mg/dL 03/12/16 Unknown CSF Total Protein 48 mg/dL 03/12/16 Unknown
[2016-03-15] MEDS: NOVOLOG SUB-Q SCH ×2 (00:06→11:52)
[2016-03-15] MEDS: ATIVAN IV PRN (01:05)
[2016-03-15] MEDS: PERCOCET 5/325 PO PRN ×2 (01:06→12:01)
[2016-03-15] MEDS: HEPARIN SUB-Q SCH ×3 (05:33→21:35)
[2016-03-15 07:00] LABS: Basophils % (Auto) 0.5 % (0.0-1.8); Hematocrit 22.3 % (30.3-42.9); Hemoglobin 7.5 gm/dl (10.1-14.3); Mean Corpuscular HGB Conc 34 % (30-34); Mean Corpuscular Hemoglobin 32 pg (28-32); Mean Corpuscular Volume 96 fl (79-97); Platelet Count 179 K/mm3 (140-440); Red Blood Count 2.32 M/mm3 (3.65-5.03); Red Cell Distribution Width 17.5 % (13.2-15.2); White Blood Count 13.5 K/mm3 (4.5-11.0)
[2016-03-15 07:21] LABS: BUN/Creatinine Ratio 11.66; Chloride 110.8 mmol/L (98-107); Magnesium 2.2 mg/dL (1.7-2.3); Potassium 4.1 mmol/L (3.6-5.0)
--- NOTE | 2016-03-15 09:46 | Progress Note ---
Assessment and Plan Current antibiotics: None Previous antibiotics: Zosyn 4.5 grams IV q8h 03/03-03/07 Levaquin 750 mg IV q24h 03/03-03/06 ASSESSMENT: Edith Coelho is a 60-year-old female with hypertension, obstructive sleep apnea and COPD who was admitted to [facility] on 03/02/16 with a one-month history of decreased appetite and increasing weakness. She has had a persistent leukocytosis. Problem list: 1. Leukocytosis -Likely reactive secondary to whatever is causing her encephalopathy: ? ETOH withdrawal, etc. -Rule out infection although work up negative to date and no obvious source on exam -Rule out primary hematologic reason -decreased down to 13, patient remains afebrile 2. 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 --CSF without pleocytosis, no meningeal problems 3. Gram negative rods in urine without pyuria -Urinalysis not suggestive of UTI with no pyuria PLAN: 1. Continue to follow off of antibiotics 2. May need to consider bone marrow 3. no further ID recommendation, will sign off Subjective Date of service: 03/15/16 Principal diagnosis: Leukocytosis Interval history: Patient remains confused, Objective - Constitutional Vitals: Selected Entries 03/14/16 03/15/16 03/15/16 22:00 00:00 08:00 Temperature 974 F H 97.0 F L 98.8 F Pulse Rate [ 87 From Monitor] Respiratory 22 Rate O2 Sat by Pulse 87 Oximetry Blood Pressure 171/100 [Right Radial Artery] Blood Pressure 123 Mean [Right Radial Artery] General appearance: Present: no acute distress, well-nourished - EENT Eyes: no scleral icterus, no conjunctival injection ENT: poor dentition Ears: bilateral: normal - Neck Neck: no enlarged thyroid, no masses or JVD - Respiratory Respiratory effort: normal Respiratory: bilateral: CTA (anteriorly) - Cardiovascular Rhythm: regular Heart Sounds: Present: S1 & S2 Extremities: no ischemia, pulses intact, normal temperature - Gastrointestinal General gastrointestinal: Present: soft, normal bowel sounds Rectal Exam: deferred - Genitourinary Female genitourinary: deferred - Integumentary Integumentary: clear, warm, dry, no jaundice, no rash - Labs CBC & Chem 7: 03/15/16 06:40 03/15/16 06:40 Labs: Microbiology 03/04/16 Unknown Urine,Clean Catch Urine Culture - Final Escherichia Coli 03/12/16 Unknown Cerebral Spinal Fluid CSF Culture - Preliminary Laboratory Tests 03/15/16 03/15/16 06:40 06:40 WBC 13.5 H Plt Count 179 Creatinine 2.4 H
[2016-03-15] MEDS: FOLVITE PO SCH (11:45)
[2016-03-15] MEDS: VITAMIN B-1 FEEDTUBE SCH (11:46)
[2016-03-15] MEDS: TENORMIN PO SCH (11:51)
--- NOTE | 2016-03-15 19:46 | Progress Note ---
Assessment and Plan Assessment and plan: --Metabolic encephalopathy/patient is unresponsive Workup so far negative, MRI no acute intracranial abnormality noted Lumbar puncture and CSF analysis negative --Dysphagia, secondary to metabolic encephalopathy Patient pulled of Dobbhoff, replace and start troops, swallow evaluation, --Acute renal failure probably secondary to vasomotor nephropathy gentle hydration closely monitor renal function avoid nephrotoxic medications consider --Leukocytosis. Nonspecific, trending down --Positive urine cultures for Escherichia coli, ID following Recommend monitor off antibiotics --Hypernatremia. Resolved sodium is 135 today --Hypertension. Well controlled on Atenolol, lisinopril, clonidine prn. --Full code status --DVT prophylaxis with heparin Physical therapy when patient is more alert Consults and recommendations noted and appreciated Plan of care discussed with the at the bedside as well as her nurse and the case management History Interval history: Patient seen and evaluated in her room and medical records reviewed Remains lethargic groans and moans, responds to deep stimuli Not in acute distress vital signs reviewed Hospitalist Physical - Constitutional Vitals: Temp Pulse Resp BP Pulse Ox 98.7 F 84 20 168/94 98 03/15/16 17:00 03/15/16 17:00 03/15/16 17:00 03/15/16 17:00 03/15/16 17:00 General appearance: Present: no acute distress, well-nourished - EENT Eyes: Present: PERRL, EOM intact - Neck Neck: Present: supple, normal ROM - Respiratory Respiratory effort: normal Respiratory: bilateral: diminished, negative: rales, rhonchi, wheezing - Cardiovascular Rhythm: regular Heart Sounds: Present: S1 & S2 - Extremities Extremities: no ischemia, pulses intact, pulses symmetrical Peripheral Pulses: within normal limits - Abdominal General gastrointestinal: soft, non-tender, non-distended, normal bowel sounds - Integumentary Integumentary: Present: clear, warm - Psychiatric Psychiatric: other (noncommunicative) - Neurologic Neurologic: other (noncommunicative and lethargic) Results - Labs CBC & Chem 7: 03/15/16 06:40 03/15/16 06:40 Labs: Laboratory Last Values WBC 13.5 K/mm3 (4.5-11.0) H 03/15/16 06:40 RBC 2.32 M/mm3 (3.65-5.03) L 03/15/16 06:40 Hgb 7.5 gm/dl (10.1-14.3) L 03/15/16 06:40 Hct 22.3 % (30.3-42.9) L 03/15/16 06:40 MCV 96 fl (79-97) 03/15/16 06:40 MCH 32 pg (28-32) 03/15/16 06:40 MCHC 34 % (30-34) 03/15/16 06:40 RDW 17.5 % (13.2-15.2) H 03/15/16 06:40 Plt Count 179 K/mm3 (140-440) 03/15/16 06:40 Lymph % (Auto) 12.8 % (13.4-35.0) L 03/15/16 06:40 [place] % (Auto) 8.2 % (0.0-7.3) H 03/15/16 06:40 Eos % (Auto) 3.0 % (0.0-4.3) 03/15/16 06:40 Baso % (Auto) 0.5 % (0.0-1.8) 03/15/16 06:40 Lymph # 1.7 K/mm3 (1.2-5.4) 03/15/16 06:40 [place] # 1.1 K/mm3 (0.0-0.8) H 03/15/16 06:40 Eos # 0.4 K/mm3 (0.0-0.4) 03/15/16 06:40 Baso # 0.1 K/mm3 (0.0-0.1) 03/15/16 06:40 Add Manual Diff Complete 03/11/16 00:50 Total Counted 100 03/11/16 00:50 Seg Neutrophils % 75.5 % (40.0-70.0) H 03/15/16 06:40 Seg Neuts % (Manual) 74.0 % (40.0-70.0) H 03/11/16 00:50 Band Neutrophils % 4.0 % 03/11/16 00:50 Lymphocytes % (Manual) 10.0 % (13.4-35.0) L 03/11/16 00:50 Reactive Lymphs % (Man) 0 % 03/11/16 00:50 Monocytes % (Manual) 8.0 % (0.0-7.3) H 03/11/16 00:50 Eosinophils % (Manual) 4.0 % (0.0-4.3) 03/11/16 00:50 Basophils % (Manual) 0 % (0.0-1.8) 03/11/16 00:50 Metamyelocytes % 0 % 03/11/16 00:50 Myelocytes % 0 % 03/11/16 00:50 Promyelocytes % 0 % 03/11/16 00:50 Blast Cells % 0 % 03/11/16 00:50 Nucleated RBC % Not Reportable 03/11/16 00:50 Seg Neutrophils # 10.2 K/mm3 (1.8-7.7) H 03/15/16 06:40 Seg Neutrophils # Man 18.0 K/mm3 (1.8-7.7) H 03/11/16 00:50 Band Neutrophils # 1.0 K/mm3 03/11/16 00:50 Lymphocytes # (Manual) 2.4 K/mm3 (1.2-5.4) 03/11/16 00:50 Abs React Lymphs (Man) 0.0 K/mm3 03/11/16 00:50 Monocytes # (Manual) 1.9 K/mm3 (0.0-0.8) H 03/11/16 00:50 Eosinophils # (Manual) 1.0 K/mm3 (0.0-0.4) H 03/11/16 00:50 Basophils # (Manual) 0.0 K/mm3 (0.0-0.1) 03/11/16 00:50 Metamyelocytes # 0.0 K/mm3 03/11/16 00:50 Myelocytes # 0.0 K/mm3 03/11/16 00:50 Promyelocytes # 0.0 K/mm3 03/11/16 00:50 Blast Cells # 0.0 K/mm3 03/11/16 00:50 WBC Morphology Not Reportable 03/11/16 00:50 Hypersegmented Neuts Not Reportable 03/11/16 00:50 Hyposegmented Neuts Not Reportable 03/11/16 00:50 Hypogranular Neuts Not Reportable 03/11/16 00:50 Smudge Cells Not Reportable 03/11/16 00:50 Toxic Granulation Not Reportable 03/11/16 00:50 Toxic Vacuolation Not Reportable 03/11/16 00:50 Dohle Bodies Not Reportable 03/11/16 00:50 Pelger-Huet Anomaly Not Reportable 03/11/16 00:50 Betty Rods Not Reportable 03/11/16 00:50 Platelet Estimate Consistent w auto 03/11/16 00:50 Clumped Platelets Not Reportable 03/11/16 00:50 Plt Clumps, EDTA Not Reportable 03/11/16 00:50 Large Platelets Not Reportable 03/11/16 00:50 Giant Platelets Not Reportable 03/11/16 00:50 Platelet Satelliting Not Reportable 03/11/16 00:50 Plt Morphology Comment Not Reportable 03/11/16 00:50 RBC Morphology Not Reportable 03/11/16 00:50 Dimorphic RBCs Not Reportable 03/11/16 00:50 Polychromasia Not Reportable 03/11/16 00:50 Hypochromasia Not Reportable 03/11/16 00:50 Poikilocytosis Not Reportable 03/11/16 00:50 Anisocytosis 1+ 03/11/16 00:50 Microcytosis Not Reportable 03/11/16 00:50 Macrocytosis Not Reportable 03/11/16 00:50 Spherocytes Not Reportable 03/11/16 00:50 Pappenheimer Bodies Not Reportable 03/11/16 00:50 Sickle Cells Not Reportable 03/11/16 00:50 Target Cells Not Reportable 03/11/16 00:50 Tear Drop Cells Not Reportable 03/11/16 00:50 Ovalocytes Not Reportable 03/11/16 00:50 Helmet Cells Not Reportable 03/11/16 00:50 [place] Bodies Not Reportable 03/11/16 00:50 [place] Rings Not Reportable 03/11/16 00:50 Tim Cells Not Reportable 03/11/16 00:50 Bite Cells Not Reportable 03/11/16 00:50 Crenated Cell Not Reportable 03/11/16 00:50 Elliptocytes Not Reportable 03/11/16 00:50 Acanthocytes (Spur) Not Reportable 03/11/16 00:50 Rouleaux Not Reportable 03/11/16 00:50 Hemoglobin C Crystals Not Reportable 03/11/16 00:50 Schistocytes Not Reportable 03/11/16 00:50 Malaria parasites Not Reportable 03/11/16 00:50 Matthew Bodies Not Reportable 03/11/16 00:50 Hem Pathologist Commnt No 03/11/16 00:50 PT 13.0 Sec. (12.2-14.9) 03/12/16 09:50 INR 0.99 (0.87-1.13) 03/12/16 09:50 APTT 38.8 Sec. (24.2-36.6) H 03/12/16 09:50 Sodium 139 mmol/L (137-145) 03/15/16 06:40 Potassium 4.1 mmol/L (3.6-5.0) 03/15/16 06:40 Chloride 110.8 mmol/L (98-107) H 03/15/16 06:40 Carbon Dioxide 16 mmol/L (22-30) L 03/15/16 06:40 Anion Gap 16 mmol/L 03/15/16 06:40 BUN 28 mg/dL (7-17) H 03/15/16 06:40 Creatinine 2.4 mg/dL (0.7-1.2) H 03/15/16 06:40 Estimated GFR 25 ml/min 03/15/16 06:40 BUN/Creatinine Ratio 11.66 % 03/15/16 06:40 Glucose 100 mg/dL (65-100) 03/15/16 06:40 POC Glucose 127 (70-105) H 03/15/16 16:32 Lactic Acid 1.7 mmol/L (0.7-2.0) 03/03/16 02:43 Calcium 7.0 mg/dL (8.4-10.2) L 03/15/16 06:40 Phosphorus 2.5 mg/dL (2.5-4.5) D 03/07/16 04:53 Magnesium 2.2 mg/dL (1.7-2.3) 03/15/16 06:40 Total Bilirubin 1.4 mg/dL (0.1-1.2) H 03/05/16 07:39 AST 38 units/L (5-40) 03/05/16 07:39 ALT 17 units/L (7-56) 03/05/16 07:39 Alkaline Phosphatase 105 units/L (35-129) 03/05/16 07:39 Ammonia 55.0 umol/L (25-60) 03/07/16 04:53 Total Creatine Kinase 42 units/L (30-135) 03/02/16 18:35 CK-MB (CK-2) < 1.0 ng/mL (0.0-4.0) 03/02/16 18:35 CK-MB (CK-2) Rel Index 2.3 (0-4) 03/02/16 18:35 Troponin T < 0.010 ng/mL (0.00-0.029) 03/02/16 18:35 Total Protein 5.9 g/dL (6.3-8.2) L 03/05/16 07:39 Albumin 2.4 g/dL (3.9-5) L 03/05/16 07:39 Albumin/Globulin Ratio 0.7 % 03/05/16 07:39 TSH 0.427 mlU/mL (0.270-4.200) 03/04/16 19:38 Free T4 1.36 ng/dL (0.76-1.46) 03/02/16 18:35 Urine Color Vera (Yellow) 03/02/16 20:44 Urine Turbidity Clear (Clear) 03/02/16 20:44 Urine pH 7.0 (5.0-7.0) 03/02/16 20:44 Ur Specific [place] 1.023 (1.003-1.030) 03/02/16 20:44 Urine Protein 30 mg/dl mg/dL (Negative) 03/02/16 20:44 Urine Glucose (UA) Neg mg/dL (Negative) 03/02/16 20:44 Urine Ketones 20 mg/dL (Negative) 03/02/16 20:44 Urine Blood Neg (Negative) 03/02/16 20:44 Urine Nitrite Neg (Negative) 03/02/16 20:44 Urine Bilirubin Mod (Negative) 03/02/16 20:44 Urine Ictotest Positive (Negative) 03/02/16 20:44 Urine Urobilinogen 4.0 mg/dL (<2.0) 03/02/16 20:44 Ur Leukocyte Esterase Tr (Negative) 03/02/16 20:44 Urine WBC (Auto) < 1.0 /HPF (0.0-6.0) 03/02/16 20:44 Urine RBC (Auto) 1.0 /HPF (0.0-6.0) 03/02/16 20:44 U Epithel Cells (Auto) 3.0 /HPF (0-13.0) 03/02/16 20:44 Urine Bacteria (Auto) 1+ /HPF (Negative) 03/02/16 20:44 Urine Mucus 3+ /HPF 03/02/16 20:44 CSF Appearance Clear 03/12/16 Unknown CSF Color Colorless 03/12/16 Unknown CSF WBC 0 /mm3 (1-10) 03/12/16 Unknown CSF RBC 102 /mm3 (0-0) 03/12/16 Unknown CSF Seg Neutrophils 0 % (0-6) 03/12/16 Unknown CSF Lymphocytes % 0 % (40-80) 03/12/16 Unknown CSF Reactive Lymphs 0 % 03/12/16 Unknown CSF Monocytes % 0 % (15-45) 03/12/16 Unknown CSF Eosinophils % 0 % 03/12/16 Unknown CSF Basophils 0 % 03/12/16 Unknown CSF Comment No cells seen 03/12/16 Unknown CSF Pathologist Review C 03/12/16 Unknown CSF Glucose 59 mg/dL 03/12/16 Unknown CSF Total Protein 48 mg/dL 03/12/16 Unknown
[2016-03-15] MEDS: APRESOLINE IV PRN (22:33)
[2016-03-15] MEDS: NACL 0.9% 1000 ML 1,000 ML IV SCH ×2 (22:45→22:50)
[2016-03-16] MEDS: PERCOCET 5/325 PO PRN ×3 (02:33→17:31)
[2016-03-16] MEDS: NOVOLOG SUB-Q SCH ×5 (03:36→17:30)
[2016-03-16] MEDS: HEPARIN SUB-Q SCH ×2 (06:25→14:03)
[2016-03-16 06:41] LABS: Hematocrit 23.2 % (30.3-42.9); Hemoglobin 7.4 gm/dl (10.1-14.3); Mean Corpuscular HGB Conc 32 % (30-34); Mean Corpuscular Hemoglobin 31 pg (28-32); Mean Corpuscular Volume 96 fl (79-97); Platelet Count 183 K/mm3 (140-440); Red Blood Count 2.41 M/mm3 (3.65-5.03); Red Cell Distribution Width 18.2 % (13.2-15.2)
[2016-03-16 06:42] LABS: White Blood Count 27.8 K/mm3 (4.5-11.0)
[2016-03-16 06:56] LABS: BUN/Creatinine Ratio 11.53; Calcium 6.8 mg/dL (8.4-10.2); Magnesium 1.9 mg/dL (1.7-2.3); Potassium 4.4 mmol/L (3.6-5.0)
[2016-03-16 08:04] LABS: Basophils % (Manual) 0.5 % (0.0-1.8); Blastocytes % (Manual) 0 %; Eosinophils % (Manual) 0 % (0.0-4.3)
[2016-03-16 08:05] LABS: Anisocytosis 1+; Target Cells Few; Tear Drop Cells Rare
[2016-03-16 08:06] LABS: Polychromasia Few
[2016-03-16 08:07] LABS: Diff Status Complete
[2016-03-16] MEDS: TENORMIN PO SCH (11:17)
[2016-03-16] MEDS: FOLVITE PO SCH (11:17)
[2016-03-16] MEDS: VITAMIN B-1 FEEDTUBE SCH (11:17)
[2016-03-16] MEDS: NACL 0.9% 1000 ML 1,000 ML IV SCH (11:20)
--- NOTE | 2016-03-16 16:59 | Progress Note ---
Assessment and Plan Assessment and plan: Acute Metabolic encephalopathy/patient is unresponsive Workup so far negative, MRI no acute intracranial abnormality noted Lumbar puncture and CSF analysis negative Dysphagia, secondary to metabolic encephalopathy. She has Dobhoff tube. Will need PEG tube. I discussed with Dr. Rodriguez. Will make NPO after midnight Acute kidney injury worsening. Consult Nephrology. Leukocytosis. This is worse today WBC 27.8. Repeat CBC show elevated WBC again today. No fever. --Positive urine cultures for Escherichia coli, ID was following but just signed off. Recommend monitor off antibiotics --Hypernatremia. Resolved, sodium is 141 today --Hypertension. Well controlled on Atenolol, lisinopril, clonidine prn. --Full code status --DVT prophylaxis with heparin Disposition. Discussed with Case management.Plan is to get PEG and placement. History Interval history: Still Confused, still agitated on and off, generalized weakness Hospitalist Physical - Physical exam Narrative exam: Narrative exam: Gen: Not in acute distress, ill looking,emaciated, HEENT: Atraumatic, Dobhoff tube Neck :supple, no JVD Lungs: Lungs clear to auscultation bilaterally, no crackles or wheeze Heart: S1 and S2 regular, no murmurs, rubs or gallop Abdomen:soft, non-tender, non-distended, normal bowel sounds Ext: No edema, no clubbing or cyanosis Neuro: Lethargic, confused. moves all ext - Constitutional Vitals: Temp Pulse Resp BP Pulse Ox 97.6 F 83 16 107/66 97 03/16/16 08:00 03/16/16 08:00 03/16/16 08:00 03/16/16 08:00 03/16/16 08:00 General appearance: Present: no acute distress, well-nourished Results - Labs CBC & Chem 7: 03/16/16 06:01 03/16/16 06:01 Labs: Laboratory Last Values WBC 27.8 K/mm3 (4.5-11.0) H 03/16/16 06:01 RBC 2.41 M/mm3 (3.65-5.03) L 03/16/16 06:01 Hgb 7.4 gm/dl (10.1-14.3) L 03/16/16 06:01 Hct 23.2 % (30.3-42.9) L 03/16/16 06:01 MCV 96 fl (79-97) 03/16/16 06:01 MCH 31 pg (28-32) 03/16/16 06:01 MCHC 32 % (30-34) 03/16/16 06:01 RDW 18.2 % (13.2-15.2) H 03/16/16 06:01 Plt Count 183 K/mm3 (140-440) 03/16/16 06:01 Lymph % (Auto) 12.8 % (13.4-35.0) L 03/15/16 06:40 [place] % (Auto) 8.2 % (0.0-7.3) H 03/15/16 06:40 Eos % (Auto) 3.0 % (0.0-4.3) 03/15/16 06:40 Baso % (Auto) 0.5 % (0.0-1.8) 03/15/16 06:40 Lymph # 1.7 K/mm3 (1.2-5.4) 03/15/16 06:40 [place] # 1.1 K/mm3 (0.0-0.8) H 03/15/16 06:40 Eos # 0.4 K/mm3 (0.0-0.4) 03/15/16 06:40 Baso # 0.1 K/mm3 (0.0-0.1) 03/15/16 06:40 Add Manual Diff Complete 03/16/16 06:01 Total Counted 200 03/16/16 06:01 Seg Neutrophils % 75.5 % (40.0-70.0) H 03/15/16 06:40 Seg Neuts % (Manual) 91.5 % (40.0-70.0) H 03/16/16 06:01 Band Neutrophils % 4.0 % 03/16/16 06:01 Lymphocytes % (Manual) 2.5 % (13.4-35.0) L 03/16/16 06:01 Reactive Lymphs % (Man) 0 % 03/16/16 06:01 Monocytes % (Manual) 1.5 % (0.0-7.3) 03/16/16 06:01 Eosinophils % (Manual) 0 % (0.0-4.3) 03/16/16 06:01 Basophils % (Manual) 0.5 % (0.0-1.8) 03/16/16 06:01 Metamyelocytes % 0 % 03/16/16 06:01 Myelocytes % 0 % 03/16/16 06:01 Promyelocytes % 0 % 03/16/16 06:01 Blast Cells % 0 % 03/16/16 06:01 Nucleated RBC % Not Reportable 03/16/16 06:01 Seg Neutrophils # 10.2 K/mm3 (1.8-7.7) H 03/15/16 06:40 Seg Neutrophils # Man 25.4 K/mm3 (1.8-7.7) H 03/16/16 06:01 Band Neutrophils # 1.1 K/mm3 03/16/16 06:01 Lymphocytes # (Manual) 0.7 K/mm3 (1.2-5.4) L 03/16/16 06:01 Abs React Lymphs (Man) 0.0 K/mm3 03/16/16 06:01 Monocytes # (Manual) 0.4 K/mm3 (0.0-0.8) 03/16/16 06:01 Eosinophils # (Manual) 0.0 K/mm3 (0.0-0.4) 03/16/16 06:01 Basophils # (Manual) 0.1 K/mm3 (0.0-0.1) 03/16/16 06:01 Metamyelocytes # 0.0 K/mm3 03/16/16 06:01 Myelocytes # 0.0 K/mm3 03/16/16 06:01 Promyelocytes # 0.0 K/mm3 03/16/16 06:01 Blast Cells # 0.0 K/mm3 03/16/16 06:01 WBC Morphology Not Reportable 03/16/16 06:01 Hypersegmented Neuts Not Reportable 03/16/16 06:01 Hyposegmented Neuts Not Reportable 03/16/16 06:01 Hypogranular Neuts Not Reportable 03/16/16 06:01 Smudge Cells Not Reportable 03/16/16 06:01 Toxic Granulation Not Reportable 03/16/16 06:01 Toxic Vacuolation Not Reportable 03/16/16 06:01 Dohle Bodies Not Reportable 03/16/16 06:01 Pelger-Huet Anomaly Not Reportable 03/16/16 06:01 Betty Rods Not Reportable 03/16/16 06:01 Platelet Estimate Appears normal 03/16/16 06:01 Clumped Platelets Not Reportable 03/16/16 06:01 Plt Clumps, EDTA Not Reportable 03/16/16 06:01 Large Platelets Not Reportable 03/16/16 06:01 Giant Platelets Not Reportable 03/16/16 06:01 Platelet Satelliting Not Reportable 03/16/16 06:01 Plt Morphology Comment Not Reportable 03/16/16 06:01 RBC Morphology Not Reportable 03/16/16 06:01 Dimorphic RBCs Not Reportable 03/16/16 06:01 Polychromasia Few 03/16/16 06:01 Hypochromasia Not Reportable 03/16/16 06:01 Poikilocytosis Not Reportable 03/16/16 06:01 Anisocytosis 1+ 03/16/16 06:01 Microcytosis Not Reportable 03/16/16 06:01 Macrocytosis Not Reportable 03/16/16 06:01 Spherocytes Not Reportable 03/16/16 06:01 Pappenheimer Bodies Not Reportable 03/16/16 06:01 Sickle Cells Not Reportable 03/16/16 06:01 Target Cells Few 03/16/16 06:01 Tear Drop Cells Rare 03/16/16 06:01 Ovalocytes Not Reportable 03/16/16 06:01 Helmet Cells Not Reportable 03/16/16 06:01 [place] Bodies Not Reportable 03/16/16 06:01 [place] Rings Not Reportable 03/16/16 06:01 [place] Cells Not Reportable 03/16/16 06:01 Bite Cells Not Reportable 03/16/16 06:01 Crenated Cell Not Reportable 03/16/16 06:01 Elliptocytes Not Reportable 03/16/16 06:01 Acanthocytes (Spur) Not Reportable 03/16/16 06:01 Rouleaux Not Reportable 03/16/16 06:01 Hemoglobin C Crystals Not Reportable 03/16/16 06:01 Schistocytes Not Reportable 03/16/16 06:01 Malaria parasites Not Reportable 03/16/16 06:01 Matthew Bodies Not Reportable 03/16/16 06:01 Hem Pathologist Commnt No 03/16/16 06:01 PT 13.0 Sec. (12.2-14.9) 03/12/16 09:50 INR 0.99 (0.87-1.13) 03/12/16 09:50 APTT 38.8 Sec. (24.2-36.6) H 03/12/16 09:50 Sodium 141 mmol/L (137-145) 03/16/16 06:01 Potassium 4.4 mmol/L (3.6-5.0) 03/16/16 06:01 Chloride 113.0 mmol/L (98-107) H 03/16/16 06:01 Carbon Dioxide 15 mmol/L (22-30) L 03/16/16 06:01 Anion Gap 17 mmol/L 03/16/16 06:01 BUN 30 mg/dL (7-17) H 03/16/16 06:01 Creatinine 2.6 mg/dL (0.7-1.2) H 03/16/16 06:01 Estimated GFR 23 ml/min 03/16/16 06:01 BUN/Creatinine Ratio 11.53 % 03/16/16 06:01 Glucose 130 mg/dL (65-100) H 03/16/16 06:01 POC Glucose 164 (70-105) H 03/16/16 11:34 Lactic Acid 1.7 mmol/L (0.7-2.0) 03/03/16 02:43 Calcium 6.8 mg/dL (8.4-10.2) L 03/16/16 06:01 Phosphorus 2.5 mg/dL (2.5-4.5) D 03/07/16 04:53 Magnesium 1.9 mg/dL (1.7-2.3) 03/16/16 06:01 Total Bilirubin 1.4 mg/dL (0.1-1.2) H 03/05/16 07:39 AST 38 units/L (5-40) 03/05/16 07:39 ALT 17 units/L (7-56) 03/05/16 07:39 Alkaline Phosphatase 105 units/L (35-129) 03/05/16 07:39 Ammonia 55.0 umol/L (25-60) 03/07/16 04:53 Total Creatine Kinase 42 units/L (30-135) 03/02/16 18:35 CK-MB (CK-2) < 1.0 ng/mL (0.0-4.0) 03/02/16 18:35 CK-MB (CK-2) Rel Index 2.3 (0-4) 03/02/16 18:35 Troponin T < 0.010 ng/mL (0.00-0.029) 03/02/16 18:35 Total Protein 5.9 g/dL (6.3-8.2) L 03/05/16 07:39 Albumin 2.4 g/dL (3.9-5) L 03/05/16 07:39 Albumin/Globulin Ratio 0.7 % 03/05/16 07:39 TSH 0.427 mlU/mL (0.270-4.200) 03/04/16 19:38 Free T4 1.36 ng/dL (0.76-1.46) 03/02/16 18:35 Urine Color Vera (Yellow) 03/02/16 20:44 Urine Turbidity Clear (Clear) 03/02/16 20:44 Urine pH 7.0 (5.0-7.0) 03/02/16 20:44 Ur Specific [place] 1.023 (1.003-1.030) 03/02/16 20:44 Urine Protein 30 mg/dl mg/dL (Negative) 03/02/16 20:44 Urine Glucose (UA) Neg mg/dL (Negative) 03/02/16 20:44 Urine Ketones 20 mg/dL (Negative) 03/02/16 20:44 Urine Blood Neg (Negative) 03/02/16 20:44 Urine Nitrite Neg (Negative) 03/02/16 20:44 Urine Bilirubin Mod (Negative) 03/02/16 20:44 Urine Ictotest Positive (Negative) 03/02/16 20:44 Urine Urobilinogen 4.0 mg/dL (<2.0) 03/02/16 20:44 Ur Leukocyte Esterase Tr (Negative) 03/02/16 20:44 Urine WBC (Auto) < 1.0 /HPF (0.0-6.0) 03/02/16 20:44 Urine RBC (Auto) 1.0 /HPF (0.0-6.0) 03/02/16 20:44 U Epithel Cells (Auto) 3.0 /HPF (0-13.0) 03/02/16 20:44 Urine Bacteria (Auto) 1+ /HPF (Negative) 03/02/16 20:44 Urine Mucus 3+ /HPF 03/02/16 20:44 CSF Appearance Clear 03/12/16 Unknown CSF Color Colorless 03/12/16 Unknown CSF WBC 0 /mm3 (1-10) 03/12/16 Unknown CSF RBC 102 /mm3 (0-0) 03/12/16 Unknown CSF Seg Neutrophils 0 % (0-6) 03/12/16 Unknown CSF Lymphocytes % 0 % (40-80) 03/12/16 Unknown CSF Reactive Lymphs 0 % 03/12/16 Unknown CSF Monocytes % 0 % (15-45) 03/12/16 Unknown CSF Eosinophils % 0 % 03/12/16 Unknown CSF Basophils 0 % 03/12/16 Unknown CSF Comment No cells seen 03/12/16 Unknown CSF Pathologist Review C 03/12/16 Unknown CSF Glucose 59 mg/dL 03/12/16 Unknown CSF Total Protein 48 mg/dL 03/12/16 Unknown
[2016-03-16] MEDS: ATIVAN IV PRN (23:35)
[2016-03-17] MEDS: NACL 0.9% 1000 ML 1,000 ML IV SCH (01:06)
[2016-03-17] MEDS: HEPARIN SUB-Q SCH ×3 (01:06→14:15)
[2016-03-17] MEDS: ATIVAN IV PRN (09:18)
[2016-03-17] MEDS: NOVOLOG SUB-Q SCH ×4 (09:19→18:31)
--- NOTE | 2016-03-17 10:41 | Gastroenterology Progress Note ---
Assessment and Plan 1) Encephalopathy 2) Dysphagia/malnutrition agreeable to PEG. OK for tube feeds today and hold at [facility] for PEG tomorrow. Subjective Date of service: 03/17/16 Principal diagnosis: AMS/dysphagia/malnutrition Interval history: Re-called to evaluate pt for PEG placement. Pt has encephalopathy of unclear etiology; has undergone extensive w/u while here. Pt w/ NGT and there are plans to transfer her to a facility. However, none will accept pt w/ an NGT and PEG is desired. agreeable. Objective - Constitutional Vitals: Temp Pulse Resp BP Pulse Ox 97.7 F 76 24 150/68 100 03/16/16 23:15 03/17/16 07:30 03/17/16 07:30 03/17/16 07:30 03/17/16 07:30 General appearance: other (somnolent, non-communicative) - Neck Neck: supple - Respiratory Respiratory: bilateral: CTA - Cardiovascular Rhythm: regular Heart Sounds: Present: S1 & S2 - Gastrointestinal General gastrointestinal: Present: soft, non-tender, non-distended, normal bowel sounds - Labs CBC & Chem 7: 03/16/16 06:01 03/16/16 06:01 Labs: Laboratory Results - last 24 hr 03/15/16 03/15/16 03/16/16 00:02 07:23 11:34 POC Glucose 138 H 112 H 164 H 03/16/16 03/16/16 03/17/16 16:37 23:46 06:12 POC Glucose 109 H 114 H 102
--- NOTE | 2016-03-17 10:42 | Progress Note ---
Assessment and Plan Assessment and plan: Acute Metabolic encephalopathy/patient is unresponsive Workup so far negative, MRI no acute intracranial abnormality noted Lumbar puncture and CSF analysis negative Dysphagia, secondary to metabolic encephalopathy. She has Dobhoff tube. Will need PEG tube. I discussed with Dr. Rodriguez. Will make NPO after midnight for PEG placement 03/18/16. Acute kidney injury worsening. Cr 2.6 yesterday. Cr was 0.5 on admission. Consult Nephrology. Leukocytosis. This is worse today WBC 27.8. Repeat CBC show elevated WBC again today. No fever. --Positive urine cultures for Escherichia coli, ID was following but just signed off. Recommend monitor off antibiotics --Hypernatremia. Resolved, sodium is 141 today --Hypertension. Well controlled on Atenolol, lisinopril, clonidine prn. --Full code status --DVT prophylaxis with heparin Disposition. Discussed with Case management.Plan is to get PEG and SNF placement. History Interval history: Still Confused, still agitated on and off, generalized weakness, cannot give history Hospitalist Physical - Physical exam Narrative exam: Narrative exam: Gen: Not in acute distress, ill looking,emaciated, HEENT: Atraumatic, Dobhoff tube Neck :supple, no JVD Lungs: Lungs clear to auscultation bilaterally, no crackles or wheeze Heart: S1 and S2 regular, no murmurs, rubs or gallop Abdomen:soft, non-tender, non-distended, normal bowel sounds Ext: No edema, no clubbing or cyanosis Neuro: Lethargic, confused. moves all ext - Constitutional Vitals: Temp Pulse Resp BP Pulse Ox 97.7 F 76 24 150/68 100 03/16/16 23:15 03/17/16 07:30 03/17/16 07:30 03/17/16 07:30 03/17/16 07:30 General appearance: Present: no acute distress, well-nourished Results - Labs CBC & Chem 7: 03/16/16 06:01 03/17/16 23:50 Labs: Laboratory Last Values WBC 27.8 K/mm3 (4.5-11.0) H 03/16/16 06:01 RBC 2.41 M/mm3 (3.65-5.03) L 03/16/16 06:01 Hgb 7.4 gm/dl (10.1-14.3) L 03/16/16 06:01 Hct 23.2 % (30.3-42.9) L 03/16/16 06:01 MCV 96 fl (79-97) 03/16/16 06:01 MCH 31 pg (28-32) 03/16/16 06:01 MCHC 32 % (30-34) 03/16/16 06:01 RDW 18.2 % (13.2-15.2) H 03/16/16 06:01 Plt Count 183 K/mm3 (140-440) 03/16/16 06:01 Lymph % (Auto) 12.8 % (13.4-35.0) L 03/15/16 06:40 [place] % (Auto) 8.2 % (0.0-7.3) H 03/15/16 06:40 Eos % (Auto) 3.0 % (0.0-4.3) 03/15/16 06:40 Baso % (Auto) 0.5 % (0.0-1.8) 03/15/16 06:40 Lymph # 1.7 K/mm3 (1.2-5.4) 03/15/16 06:40 [place] # 1.1 K/mm3 (0.0-0.8) H 03/15/16 06:40 Eos # 0.4 K/mm3 (0.0-0.4) 03/15/16 06:40 Baso # 0.1 K/mm3 (0.0-0.1) 03/15/16 06:40 Add Manual Diff Complete 03/16/16 06:01 Total Counted 200 03/16/16 06:01 Seg Neutrophils % 75.5 % (40.0-70.0) H 03/15/16 06:40 Seg Neuts % (Manual) 91.5 % (40.0-70.0) H 03/16/16 06:01 Band Neutrophils % 4.0 % 03/16/16 06:01 Lymphocytes % (Manual) 2.5 % (13.4-35.0) L 03/16/16 06:01 Reactive Lymphs % (Man) 0 % 03/16/16 06:01 Monocytes % (Manual) 1.5 % (0.0-7.3) 03/16/16 06:01 Eosinophils % (Manual) 0 % (0.0-4.3) 03/16/16 06:01 Basophils % (Manual) 0.5 % (0.0-1.8) 03/16/16 06:01 Metamyelocytes % 0 % 03/16/16 06:01 Myelocytes % 0 % 03/16/16 06:01 Promyelocytes % 0 % 03/16/16 06:01 Blast Cells % 0 % 03/16/16 06:01 Nucleated RBC % Not Reportable 03/16/16 06:01 Seg Neutrophils # 10.2 K/mm3 (1.8-7.7) H 03/15/16 06:40 Seg Neutrophils # Man 25.4 K/mm3 (1.8-7.7) H 03/16/16 06:01 Band Neutrophils # 1.1 K/mm3 03/16/16 06:01 Lymphocytes # (Manual) 0.7 K/mm3 (1.2-5.4) L 03/16/16 06:01 Abs React Lymphs (Man) 0.0 K/mm3 03/16/16 06:01 Monocytes # (Manual) 0.4 K/mm3 (0.0-0.8) 03/16/16 06:01 Eosinophils # (Manual) 0.0 K/mm3 (0.0-0.4) 03/16/16 06:01 Basophils # (Manual) 0.1 K/mm3 (0.0-0.1) 03/16/16 06:01 Metamyelocytes # 0.0 K/mm3 03/16/16 06:01 Myelocytes # 0.0 K/mm3 03/16/16 06:01 Promyelocytes # 0.0 K/mm3 03/16/16 06:01 Blast Cells # 0.0 K/mm3 03/16/16 06:01 WBC Morphology Not Reportable 03/16/16 06:01 Hypersegmented Neuts Not Reportable 03/16/16 06:01 Hyposegmented Neuts Not Reportable 03/16/16 06:01 Hypogranular Neuts Not Reportable 03/16/16 06:01 Smudge Cells Not Reportable 03/16/16 06:01 Toxic Granulation Not Reportable 03/16/16 06:01 Toxic Vacuolation Not Reportable 03/16/16 06:01 Dohle Bodies Not Reportable 03/16/16 06:01 Pelger-Huet Anomaly Not Reportable 03/16/16 06:01 Betty Rods Not Reportable 03/16/16 06:01 Platelet Estimate Appears normal 03/16/16 06:01 Clumped Platelets Not Reportable 03/16/16 06:01 Plt Clumps, EDTA Not Reportable 03/16/16 06:01 Large Platelets Not Reportable 03/16/16 06:01 Giant Platelets Not Reportable 03/16/16 06:01 Platelet Satelliting Not Reportable 03/16/16 06:01 Plt Morphology Comment Not Reportable 03/16/16 06:01 RBC Morphology Not Reportable 03/16/16 06:01 Dimorphic RBCs Not Reportable 03/16/16 06:01 Polychromasia Few 03/16/16 06:01 Hypochromasia Not Reportable 03/16/16 06:01 Poikilocytosis Not Reportable 03/16/16 06:01 Anisocytosis 1+ 03/16/16 06:01 Microcytosis Not Reportable 03/16/16 06:01 Macrocytosis Not Reportable 03/16/16 06:01 Spherocytes Not Reportable 03/16/16 06:01 Pappenheimer Bodies Not Reportable 03/16/16 06:01 Sickle Cells Not Reportable 03/16/16 06:01 Target Cells Few 03/16/16 06:01 Tear Drop Cells Rare 03/16/16 06:01 Ovalocytes Not Reportable 03/16/16 06:01 Helmet Cells Not Reportable 03/16/16 06:01 [place] Bodies Not Reportable 03/16/16 06:01 [place] Rings Not Reportable 03/16/16 06:01 Tim Cells Not Reportable 03/16/16 06:01 Bite Cells Not Reportable 03/16/16 06:01 Crenated Cell Not Reportable 03/16/16 06:01 Elliptocytes Not Reportable 03/16/16 06:01 Acanthocytes (Spur) Not Reportable 03/16/16 06:01 Rouleaux Not Reportable 03/16/16 06:01 Hemoglobin C Crystals Not Reportable 03/16/16 06:01 Schistocytes Not Reportable 03/16/16 06:01 Malaria parasites Not Reportable 03/16/16 06:01 Matthew Bodies Not Reportable 03/16/16 06:01 Hem Pathologist Commnt No 03/16/16 06:01 PT 13.0 Sec. (12.2-14.9) 03/12/16 09:50 INR 0.99 (0.87-1.13) 03/12/16 09:50 APTT 38.8 Sec. (24.2-36.6) H 03/12/16 09:50 Sodium 141 mmol/L (137-145) 03/16/16 06:01 Potassium 4.4 mmol/L (3.6-5.0) 03/16/16 06:01 Chloride 113.0 mmol/L (98-107) H 03/16/16 06:01 Carbon Dioxide 15 mmol/L (22-30) L 03/16/16 06:01 Anion Gap 17 mmol/L 03/16/16 06:01 BUN 30 mg/dL (7-17) H 03/16/16 06:01 Creatinine 2.6 mg/dL (0.7-1.2) H 03/16/16 06:01 Estimated GFR 23 ml/min 03/16/16 06:01 BUN/Creatinine Ratio 11.53 % 03/16/16 06:01 Glucose 130 mg/dL (65-100) H 03/16/16 06:01 POC Glucose 102 (70-105) 03/17/16 06:12 Lactic Acid 1.7 mmol/L (0.7-2.0) 03/03/16 02:43 Calcium 6.8 mg/dL (8.4-10.2) L 03/16/16 06:01 Phosphorus 2.5 mg/dL (2.5-4.5) D 03/07/16 04:53 Magnesium 1.9 mg/dL (1.7-2.3) 03/16/16 06:01 Total Bilirubin 1.4 mg/dL (0.1-1.2) H 03/05/16 07:39 AST 38 units/L (5-40) 03/05/16 07:39 ALT 17 units/L (7-56) 03/05/16 07:39 Alkaline Phosphatase 105 units/L (35-129) 03/05/16 07:39 Ammonia 55.0 umol/L (25-60) 03/07/16 04:53 Total Creatine Kinase 42 units/L (30-135) 03/02/16 18:35 CK-MB (CK-2) < 1.0 ng/mL (0.0-4.0) 03/02/16 18:35 CK-MB (CK-2) Rel Index 2.3 (0-4) 03/02/16 18:35 Troponin T < 0.010 ng/mL (0.00-0.029) 03/02/16 18:35 Total Protein 5.9 g/dL (6.3-8.2) L 03/05/16 07:39 Albumin 2.4 g/dL (3.9-5) L 03/05/16 07:39 Albumin/Globulin Ratio 0.7 % 03/05/16 07:39 TSH 0.427 mlU/mL (0.270-4.200) 03/04/16 19:38 Free T4 1.36 ng/dL (0.76-1.46) 03/02/16 18:35 Urine Color Vera (Yellow) 03/02/16 20:44 Urine Turbidity Clear (Clear) 03/02/16 20:44 Urine pH 7.0 (5.0-7.0) 03/02/16 20:44 Ur Specific Donora 1.023 (1.003-1.030) 03/02/16 20:44 Urine Protein 30 mg/dl mg/dL (Negative) 03/02/16 20:44 Urine Glucose (UA) Neg mg/dL (Negative) 03/02/16 20:44 Urine Ketones 20 mg/dL (Negative) 03/02/16 20:44 Urine Blood Neg (Negative) 03/02/16 20:44 Urine Nitrite Neg (Negative) 03/02/16 20:44 Urine Bilirubin Mod (Negative) 03/02/16 20:44 Urine Ictotest Positive (Negative) 03/02/16 20:44 Urine Urobilinogen 4.0 mg/dL (<2.0) 03/02/16 20:44 Ur Leukocyte Esterase Tr (Negative) 03/02/16 20:44 Urine WBC (Auto) < 1.0 /HPF (0.0-6.0) 03/02/16 20:44 Urine RBC (Auto) 1.0 /HPF (0.0-6.0) 03/02/16 20:44 U Epithel Cells (Auto) 3.0 /HPF (0-13.0) 03/02/16 20:44 Urine Bacteria (Auto) 1+ /HPF (Negative) 03/02/16 20:44 Urine Mucus 3+ /HPF 03/02/16 20:44 CSF Appearance Clear 03/12/16 Unknown CSF Color Colorless 03/12/16 Unknown CSF WBC 0 /mm3 (1-10) 03/12/16 Unknown CSF RBC 102 /mm3 (0-0) 03/12/16 Unknown CSF Seg Neutrophils 0 % (0-6) 03/12/16 Unknown CSF Lymphocytes % 0 % (40-80) 03/12/16 Unknown CSF Reactive Lymphs 0 % 03/12/16 Unknown CSF Monocytes % 0 % (15-45) 03/12/16 Unknown CSF Eosinophils % 0 % 03/12/16 Unknown CSF Basophils 0 % 03/12/16 Unknown CSF Comment No cells seen 03/12/16 Unknown CSF Pathologist Review C 03/12/16 Unknown CSF Glucose 59 mg/dL 03/12/16 Unknown CSF Total Protein 48 mg/dL 03/12/16 Unknown
[2016-03-17] MEDS: VITAMIN B-1 FEEDTUBE SCH (11:37)
[2016-03-17] MEDS: TENORMIN PO SCH (11:37)
[2016-03-17] MEDS: PERCOCET 5/325 PO PRN (11:37)
[2016-03-17] MEDS: FOLVITE PO SCH (11:37)
[2016-03-17 22:21] LABS: ISTAT Base Excess -11; ISTAT HCO3 14.7; ISTAT PCO2 28.6 (35-45); ISTAT PH 7.319 (7.35-7.45); ISTAT PO2 95 (80-105); ISTAT SO2 97; ISTAT TCO2 16
--- NOTE | 2016-03-17 23:39 | Event Note ---
Recieved consult, chart reviewed, Needs to get CXR report Reduced IVF , nurse informed she ahs some wheezes, Check Ionized calcium Check BMP , renal; labs USG ABG was ordered , Will follow
[2016-03-17] MEDS ORDERED: CALCIUM CHLORIDE 1,000 MG in NACL 0.9% 100 ML IV ONE (23:42)
[2016-03-18] MEDS: HEPARIN SUB-Q SCH ×3 (00:10→13:08)
[2016-03-18 00:55] LABS: BUN/Creatinine Ratio 12.59; Calcium 7.4 mg/dL (8.4-10.2); Chloride 111.6 mmol/L (98-107); Potassium 4.9 mmol/L (3.6-5.0)
[2016-03-18 02:20] LABS: Uric Acid 8.4 mg/dL (3.5-7.6)
[2016-03-18] MEDS: NOVOLOG SUB-Q SCH ×4 (03:23→18:00)
[2016-03-18] MEDS ORDERED: NACL 0.9% 1000 ML 1,000 ML IV SCH ×2 (08:00→12:00)
--- NOTE | 2016-03-18 08:35 | XRay Report ---
AP CHEST: HISTORY: Congestion, cough. FINDINGS: Hazy opacity at the lung bases has increased slightly since the exam 4 days ago. These appear to represent small pleural effusions or less likely basilar atelectasis. The upper lung zones are clear. Heart size and pulmonary vascularity are stable at the upper limits of normal. Right arm PICC and feeding tube are in adequate position. IMPRESSION: Mild interval increase in hazy bilateral lower lung opacities most consistent with small pleural effusions.
--- NOTE | 2016-03-18 08:47 | Ultrasound Report ---
ULTRASOUND RENAL BILATERAL HISTORY: Acute renal insufficiency. TECHNIQUE: transabdominal ultrasound with color Doppler interrogation. FINDINGS: The right kidney measures 10.3 x 5.4 x 5.5cm. Right renal cortex: 1.4cm. The left kidney measures 10.0 x 4.5 x 4.6cm. Left renal cortex: 2.4cm. There is mild to moderate right hydronephrosis. No left hydronephrosis. The kidneys are slightly echogenic she could represent medical renal disease or acute renal failure. There is no evidence for cystic disease, mass, shadowing calculus or perinephric fluid. The bladder is unremarkable. IMPRESSION: Right hydronephrosis. The obstructing lesion is not clearly demonstrated on ultrasound. No nephrolithiasis is detected. Slightly echogenic kidneys consistent with medical renal disease or acute renal failure.
--- NOTE | 2016-03-18 09:58 | Consultation ---
History of Present Illness - History of Present Illness Thank you for the consultation Dictated Patient was evaluated today in the morning Assessment and plan Patient is a frail-appearing 60-year-old -[place] female who has been admitted here with multiple health issues currently noted to have worsening renal function. Her creatinine was fairly normal upon admission of 0.5.patient needs further workup of renal failure prior to arrival she was taking lisinopril and hydrochlorothiazide and was likely volume depleted Patient still continues to have significant leukocytosis and was noted to have Escherichia coli urinary tract infection and was followed by infectious disease until recently, due to hydronephrosis I believe she has complicated urinary tract infection severe anemia and leukocytosis, ? due to pyelonephritis would recommend a urology consultation Patient does appear to have right-sided hydronephrosis please consider urology consultation She also does appear to have pre-existing chronic kidney disease based on the ultrasonogram finding Hypernatremia appears to be doing better she will benefit from oral hydration Patient is noted to be full code but she is very frail-appearing female Patient appears to have third space some of the fluid and also has edema and pulmonary congestion Evidence off metabolic acidosis, needs to be monitored closely judicious bicarbonate replacement Patient is going for PEG tube placement today Her overall prognosis appears to be very poor to me,patient has multiple comorbidities tried to call [phone] not working Past History Past Medical History: hypertension, other (oa, nicotine dependence) Past Surgical History: hysterectomy, Other (rotator cuff surgery) Social history: , smoking. denies: alcohol abuse, prescription drug abuse Family history: hypertension Medications and Allergies Allergies Allergy/AdvReac Type Severity Reaction Status Date / Time No Known Allergies Allergy Verified 03/02/16 21:45 Home Medications Medication Instructions Recorded Confirmed Last Taken Type oxyCODONE /ACETAMINOPHEN [Percocet 1 tab PO Q6HR PRN #20 tablet 03/12/13 Unknown Rx 5/325 mg] Acetaminophen-Codeine #3 TAB 30 mg PO PRN 03/03/16 Unknown History FLUoxetine HCL [FLUoxetine] 20 mg PO DAILY 03/03/16 03/03/16 Unknown History Gabapentin 600 mg PO TID 03/03/16 03/03/16 Unknown History Ibuprofen 800 mg PO PRN 03/03/16 Unknown History Lisinopril/Hydrochlorothiazide 20 mg PO DAILY 03/03/16 03/03/16 Unknown History Naproxen TAB 500 mg PO BID 03/03/16 03/03/16 Unknown History Sulfamethoxazole/Trimethoprim 800 mg PO BID 03/03/16 03/03/16 Unknown History Symbicort 160-4.5 (Nf) 160 INHALATION BID 03/03/16 Unknown History hydrOXYZINE PAMOATE [hydrOXYzine 25 mg PO BID 03/03/16 03/03/16 Unknown History Pamoate] traZODone 100 mg PO QHS 03/03/16 03/03/16 Unknown History Active Meds: Active Medications Acetaminophen (Tylenol) 650 mg PO Q4H PRN PRN Reason: Pain MILD(1-3)/Fever >100.5/GILL Albuterol (Proventil) 2.5 mg IH Q6HRT PRN PRN Reason: Shortness Of Breath Lipase/Protease/Amylase (Pancrealexae Dr 10,500 Unit) 1 each FEEDTUBE PRN PRN PRN Reason: For Clogged Feeding Tube Arformoterol Tartrate (Brovana Nebu) 15 mcg IH Q12HRT [facility] Atenolol (Tenormin) 50 mg PO QDAY [facility] Last Admin: 03/17/16 11:37 Dose: 50 mg Budesonide (Pulmicort) 0.5 mg IH Q12HRT PATTY Clonidine HCl (Catapres) 0.1 mg PO Q4H PRN PRN Reason: For SBP>170 or DBP>110 Folic Acid (Folvite) 1 mg PO QDAY [facility] Last Admin: 03/17/16 11:37 Dose: 1 mg Heparin Sodium (Porcine) (Heparin) 5,000 unit SUB-Q Q8HR [facility] Last Admin: 03/18/16 06:39 Dose: 5,000 unit Hydralazine HCl (Apresoline) 20 mg IV Q6H PRN PRN Reason: Blood Pressure Last Admin: 03/15/16 22:33 Dose: 20 mg Sodium Chloride (Nacl 0.9% 1000 Ml) 1,000 mls @ 75 mls/hr IV DIRECT PATTY Insulin Aspart (Novolog) 0 units SUB-Q Q6HR [facility] PRN Reason: Protocol Last Admin: 03/18/16 06:41 Dose: Not Given Lorazepam (Ativan) 1 mg IV Q1H PRN PRN Reason: agitation or anxiety Last Admin: 03/17/16 09:18 Dose: 1 mg Lorazepam (Ativan) 4 mg IV Q1HR PRN PRN Reason: CIWA-Ar 16-25 Last Admin: 03/15/16 22:33 Dose: 4 mg Lorazepam (Ativan) 2 mg IV Q1HR PRN PRN Reason: CIWA-Ar 8-15 Last Admin: 03/16/16 23:35 Dose: 2 mg Lorazepam (Ativan) 4 mg IV Q15MIN PRN PRN Reason: CIWA-Ar >25 Oxycodone/Acetaminophen (Percocet 5/325) 1 tab PO Q6H PRN PRN Reason: Pain Last Admin: 03/17/16 11:37 Dose: 1 tab Simple Syrup (Simple Syrup) 15 ml FEEDTUBE PRN PRN PRN Reason: Hypoglycemia Simple Syrup (Simple Syrup) 30 ml FEEDTUBE PRN PRN PRN Reason: Hypoglycemia Sodium Bicarbonate (Sodium Bicarbonate) 325 mg FEEDTUBE PRN PRN PRN Reason: For Clogged Feeding Tube Sodium Chloride (Nacl 0.9% 1000 Ml) 100 ml IV DIRECT PATTY Last Admin: 03/14/16 22:34 Dose: 100 ml Thiamine HCl (Vitamin B-1) 100 mg FEEDTUBE QDAY PATTY Last Admin: 03/17/16 11:37 Dose: 100 mg Exam - Vital Signs Vital signs: Vital Signs Temp Pulse BP Pulse Ox 99 F 61 158/91 100 03/02/16 18:29 03/02/16 18:29 03/02/16 18:29 03/02/16 18:29 Results - Lab Results 03/16/16 06:01 03/17/16 23:50 Most recent lab results Calcium 7.4 mg/dL (8.4-10.2) L 03/17/16 23:50 Phosphorus 2.5 mg/dL (2.5-4.5) D 03/07/16 04:53 Magnesium 1.9 mg/dL (1.7-2.3) 03/16/16 06:01
[2016-03-18] MEDS: FOLVITE PO SCH (10:00)
[2016-03-18] MEDS: VITAMIN B-1 FEEDTUBE SCH (10:00)
[2016-03-18] MEDS: TENORMIN PO SCH (10:00)
--- NOTE | 2016-03-18 10:39 | Progress Note ---
Assessment and Plan Assessment and plan: Acute Metabolic encephalopathy. Patient lethargic, confused Workup so far negative, MRI no acute intracranial abnormality noted Lumbar puncture and CSF analysis negative Dysphagia, secondary to metabolic encephalopathy. She has Dobhoff tube. For PEG tube placement today. I discussed with Dr. Rodriguez., GI Acute kidney injury worsening. Cr 2.7 today. Cr was 0.5 on admission. Consulted Nephrology, and she was evaluated. Leukocytosis. This is worse WBC 27.8. No fever. --Positive urine cultures for Escherichia coli, ID was following but just signed off. Recommend monitor off antibiotics --Hypernatremia. Resolved, sodium is 141 --Hypertension. Well controlled on Atenolol, lisinopril, clonidine prn. --Full code status --DVT prophylaxis with heparin Disposition. Discussed with Case management.Plan is to get PEG and SNF placement. History Interval history: Confusion still present, still agitated on and off, generalized weakness, cannot give history Hospitalist Physical - Physical exam Narrative exam: Narrative exam: Gen: Not in acute distress, ill looking,emaciated, HEENT: Atraumatic, Dobhoff tube Neck :supple, no JVD Lungs: Lungs clear to auscultation bilaterally, no crackles or wheeze Heart: S1 and S2 regular, no murmurs, rubs or gallop Abdomen:soft, non-tender, non-distended, normal bowel sounds Ext: No edema, no clubbing or cyanosis Neuro: Lethargic, confused. moves all ext - Constitutional Vitals: Temp Pulse Resp BP Pulse Ox 98.7 F 100 H 22 175/95 100 03/18/16 09:00 03/18/16 09:00 03/18/16 09:00 03/18/16 09:00 03/18/16 09:03 General appearance: Present: no acute distress, well-nourished Results - Labs CBC & Chem 7: 03/16/16 06:01 03/17/16 23:50 Labs: Laboratory Last Values WBC 27.8 K/mm3 (4.5-11.0) H 03/16/16 06:01 RBC 2.41 M/mm3 (3.65-5.03) L 03/16/16 06:01 Hgb 7.4 gm/dl (10.1-14.3) L 03/16/16 06:01 Hct 23.2 % (30.3-42.9) L 03/16/16 06:01 MCV 96 fl (79-97) 03/16/16 06:01 MCH 31 pg (28-32) 03/16/16 06:01 MCHC 32 % (30-34) 03/16/16 06:01 RDW 18.2 % (13.2-15.2) H 03/16/16 06:01 Plt Count 183 K/mm3 (140-440) 03/16/16 06:01 Lymph % (Auto) 12.8 % (13.4-35.0) L 03/15/16 06:40 [place] % (Auto) 8.2 % (0.0-7.3) H 03/15/16 06:40 Eos % (Auto) 3.0 % (0.0-4.3) 03/15/16 06:40 Baso % (Auto) 0.5 % (0.0-1.8) 03/15/16 06:40 Lymph # 1.7 K/mm3 (1.2-5.4) 03/15/16 06:40 [place] # 1.1 K/mm3 (0.0-0.8) H 03/15/16 06:40 Eos # 0.4 K/mm3 (0.0-0.4) 03/15/16 06:40 Baso # 0.1 K/mm3 (0.0-0.1) 03/15/16 06:40 Add Manual Diff Complete 03/16/16 06:01 Total Counted 200 03/16/16 06:01 Seg Neutrophils % 75.5 % (40.0-70.0) H 03/15/16 06:40 Seg Neuts % (Manual) 91.5 % (40.0-70.0) H 03/16/16 06:01 Band Neutrophils % 4.0 % 03/16/16 06:01 Lymphocytes % (Manual) 2.5 % (13.4-35.0) L 03/16/16 06:01 Reactive Lymphs % (Man) 0 % 03/16/16 06:01 Monocytes % (Manual) 1.5 % (0.0-7.3) 03/16/16 06:01 Eosinophils % (Manual) 0 % (0.0-4.3) 03/16/16 06:01 Basophils % (Manual) 0.5 % (0.0-1.8) 03/16/16 06:01 Metamyelocytes % 0 % 03/16/16 06:01 Myelocytes % 0 % 03/16/16 06:01 Promyelocytes % 0 % 03/16/16 06:01 Blast Cells % 0 % 03/16/16 06:01 Nucleated RBC % Not Reportable 03/16/16 06:01 Seg Neutrophils # 10.2 K/mm3 (1.8-7.7) H 03/15/16 06:40 Seg Neutrophils # Man 25.4 K/mm3 (1.8-7.7) H 03/16/16 06:01 Band Neutrophils # 1.1 K/mm3 03/16/16 06:01 Lymphocytes # (Manual) 0.7 K/mm3 (1.2-5.4) L 03/16/16 06:01 Abs React Lymphs (Man) 0.0 K/mm3 03/16/16 06:01 Monocytes # (Manual) 0.4 K/mm3 (0.0-0.8) 03/16/16 06:01 Eosinophils # (Manual) 0.0 K/mm3 (0.0-0.4) 03/16/16 06:01 Basophils # (Manual) 0.1 K/mm3 (0.0-0.1) 03/16/16 06:01 Metamyelocytes # 0.0 K/mm3 03/16/16 06:01 Myelocytes # 0.0 K/mm3 03/16/16 06:01 Promyelocytes # 0.0 K/mm3 03/16/16 06:01 Blast Cells # 0.0 K/mm3 03/16/16 06:01 WBC Morphology Not Reportable 03/16/16 06:01 Hypersegmented Neuts Not Reportable 03/16/16 06:01 Hyposegmented Neuts Not Reportable 03/16/16 06:01 Hypogranular Neuts Not Reportable 03/16/16 06:01 Smudge Cells Not Reportable 03/16/16 06:01 Toxic Granulation Not Reportable 03/16/16 06:01 Toxic Vacuolation Not Reportable 03/16/16 06:01 Dohle Bodies Not Reportable 03/16/16 06:01 Pelger-Huet Anomaly Not Reportable 03/16/16 06:01 Betty Rods Not Reportable 03/16/16 06:01 Platelet Estimate Appears normal 03/16/16 06:01 Clumped Platelets Not Reportable 03/16/16 06:01 Plt Clumps, EDTA Not Reportable 03/16/16 06:01 Large Platelets Not Reportable 03/16/16 06:01 Giant Platelets Not Reportable 03/16/16 06:01 Platelet Satelliting Not Reportable 03/16/16 06:01 Plt Morphology Comment Not Reportable 03/16/16 06:01 RBC Morphology Not Reportable 03/16/16 06:01 Dimorphic RBCs Not Reportable 03/16/16 06:01 Polychromasia Few 03/16/16 06:01 Hypochromasia Not Reportable 03/16/16 06:01 Poikilocytosis Not Reportable 03/16/16 06:01 Anisocytosis 1+ 03/16/16 06:01 Microcytosis Not Reportable 03/16/16 06:01 Macrocytosis Not Reportable 03/16/16 06:01 Spherocytes Not Reportable 03/16/16 06:01 Pappenheimer Bodies Not Reportable 03/16/16 06:01 Sickle Cells Not Reportable 03/16/16 06:01 Target Cells Few 03/16/16 06:01 Tear Drop Cells Rare 03/16/16 06:01 Ovalocytes Not Reportable 03/16/16 06:01 Helmet Cells Not Reportable 03/16/16 06:01 [place] Bodies Not Reportable 03/16/16 06:01 [place] Rings Not Reportable 03/16/16 06:01 Tim Cells Not Reportable 03/16/16 06:01 Bite Cells Not Reportable 03/16/16 06:01 Crenated Cell Not Reportable 03/16/16 06:01 Elliptocytes Not Reportable 03/16/16 06:01 Acanthocytes (Spur) Not Reportable 03/16/16 06:01 Rouleaux Not Reportable 03/16/16 06:01 Hemoglobin C Crystals Not Reportable 03/16/16 06:01 Schistocytes Not Reportable 03/16/16 06:01 Malaria parasites Not Reportable 03/16/16 06:01 Matthew Bodies Not Reportable 03/16/16 06:01 Hem Pathologist Commnt No 03/16/16 06:01 PT 13.0 Sec. (12.2-14.9) 03/12/16 09:50 INR 0.99 (0.87-1.13) 03/12/16 09:50 APTT 38.8 Sec. (24.2-36.6) H 03/12/16 09:50 POC ABG pH 7.319 (7.35-7.45) L 03/17/16 22:11 POC ABG pCO2 28.6 (35-45) L 03/17/16 22:11 POC ABG pO2 95 (80-105) 03/17/16 22:11 POC ABG HCO3 14.7 03/17/16 22:11 POC ABG Total CO2 16 03/17/16 22:11 POC ABG O2 Sat 97 03/17/16 22:11 POC ABG Base Excess -11 03/17/16 22:11 FiO2 28 % 03/17/16 22:11 Sodium 139 mmol/L (137-145) 03/17/16 23:50 Potassium 4.9 mmol/L (3.6-5.0) 03/17/16 23:50 Chloride 111.6 mmol/L (98-107) H 03/17/16 23:50 Carbon Dioxide 16 mmol/L (22-30) L 03/17/16 23:50 Anion Gap 16 mmol/L 03/17/16 23:50 BUN 34 mg/dL (7-17) H 03/17/16 23:50 Creatinine 2.7 mg/dL (0.7-1.2) H 03/17/16 23:50 Estimated GFR 22 ml/min 03/17/16 23:50 BUN/Creatinine Ratio 12.59 % 03/17/16 23:50 Glucose 115 mg/dL (65-100) H 03/17/16 23:50 POC Glucose 85 (70-105) 03/18/16 05:53 Osmolality 301 Mosm/kg 03/17/16 23:50 Lactic Acid 1.7 mmol/L (0.7-2.0) 03/03/16 02:43 Uric Acid 8.4 mg/dL (3.5-7.6) H 03/17/16 23:50 Calcium 7.4 mg/dL (8.4-10.2) L 03/17/16 23:50 Phosphorus 2.5 mg/dL (2.5-4.5) D 03/07/16 04:53 Magnesium 1.9 mg/dL (1.7-2.3) 03/16/16 06:01 Total Bilirubin 1.4 mg/dL (0.1-1.2) H 03/05/16 07:39 AST 38 units/L (5-40) 03/05/16 07:39 ALT 17 units/L (7-56) 03/05/16 07:39 Alkaline Phosphatase 105 units/L (35-129) 03/05/16 07:39 Ammonia 55.0 umol/L (25-60) 03/07/16 04:53 Total Creatine Kinase 42 units/L (30-135) 03/02/16 18:35 CK-MB (CK-2) < 1.0 ng/mL (0.0-4.0) 03/02/16 18:35 CK-MB (CK-2) Rel Index 2.3 (0-4) 03/02/16 18:35 Troponin T < 0.010 ng/mL (0.00-0.029) 03/02/16 18:35 Total Protein 5.9 g/dL (6.3-8.2) L 03/05/16 07:39 Albumin 2.4 g/dL (3.9-5) L 03/05/16 07:39 Albumin/Globulin Ratio 0.7 % 03/05/16 07:39 TSH 0.427 mlU/mL (0.270-4.200) 03/04/16 19:38 Free T4 1.36 ng/dL (0.76-1.46) 03/02/16 18:35 Urine Color Vera (Yellow) 03/02/16 20:44 Urine Turbidity Clear (Clear) 03/02/16 20:44 Urine pH 7.0 (5.0-7.0) 03/02/16 20:44 Ur Specific [place] 1.023 (1.003-1.030) 03/02/16 20:44 Urine Protein 30 mg/dl mg/dL (Negative) 03/02/16 20:44 Urine Glucose (UA) Neg mg/dL (Negative) 03/02/16 20:44 Urine Ketones 20 mg/dL (Negative) 03/02/16 20:44 Urine Blood Neg (Negative) 03/02/16 20:44 Urine Nitrite Neg (Negative) 03/02/16 20:44 Urine Bilirubin Mod (Negative) 03/02/16 20:44 Urine Ictotest Positive (Negative) 03/02/16 20:44 Urine Urobilinogen 4.0 mg/dL (<2.0) 03/02/16 20:44 Ur Leukocyte Esterase Tr (Negative) 03/02/16 20:44 Urine WBC (Auto) < 1.0 /HPF (0.0-6.0) 03/02/16 20:44 Urine RBC (Auto) 1.0 /HPF (0.0-6.0) 03/02/16 20:44 U Epithel Cells (Auto) 3.0 /HPF (0-13.0) 03/02/16 20:44 Urine Bacteria (Auto) 1+ /HPF (Negative) 03/02/16 20:44 Urine Mucus 3+ /HPF 03/02/16 20:44 CSF Appearance Clear 03/12/16 Unknown CSF Color Colorless 03/12/16 Unknown CSF WBC 0 /mm3 (1-10) 03/12/16 Unknown CSF RBC 102 /mm3 (0-0) 03/12/16 Unknown CSF Seg Neutrophils 0 % (0-6) 03/12/16 Unknown CSF Lymphocytes % 0 % (40-80) 03/12/16 Unknown CSF Reactive Lymphs 0 % 03/12/16 Unknown CSF Monocytes % 0 % (15-45) 03/12/16 Unknown CSF Eosinophils % 0 % 03/12/16 Unknown CSF Basophils 0 % 03/12/16 Unknown CSF Comment No cells seen 03/12/16 Unknown CSF Pathologist Review C 03/12/16 Unknown CSF Glucose 59 mg/dL 03/12/16 Unknown CSF Total Protein 48 mg/dL 03/12/16 Unknown
[2016-03-18 11:32] LABS: ISTAT Base Excess -11; ISTAT HCO3 15.4; ISTAT PCO2 29.9 (35-45); ISTAT PO2 102 (80-105); ISTAT SO2 97; ISTAT TCO2 16
[2016-03-18] MEDS ORDERED: ANCEF/STERILE WATER 2 GM/20 ML 20 ML IV NR (12:00)
[2016-03-18] MEDS ORDERED: WATER FOR IRRIG STERILE IR ONE (14:16)
--- NOTE | 2016-03-18 14:27 | Anesthesia Consultation ---
Anesthesia Consult and Med Hx Date of service: 03/18/16 - Airway Anesthetic Teeth Evaluation: Poor - Pulmonary Exam CTA: Yes - Pre-Operative Health Status ASA Pre-Surgery Classification: ASA4 Proposed Anesthetic Plan: General - Pulmonary COPD: Yes - Cardiovascular System Hx Hypertension: Yes Hx Pacemaker: No Hx Internal Defibrillator: No - Additional Comments Anesthesia Medical History Comments: Patient is unable to provide any medical information or follow commands. Patient is tachycardic, and appears to be in pain.
--- NOTE | 2016-03-18 14:29 | Anesthesia Day of Surgery ---
Anesthesia Day of Surgery - Day of Surgery Patient Examined: Yes Patient H&P Reviewed: Yes Patient is NPO: Yes Beta Blockers: (No documented meds since 03/04/2016)
[2016-03-18] MEDS ORDERED: DIPRIVAN 10 MG/ML IV ONE (15:40)
--- NOTE | 2016-03-18 16:03 | Post Operative Note ---
Pre-op diagnosis: Dysphagia/malnutrition Post-op diagnosis: same Findings: EGD/PEG Esophagus/stomach/duodenum: Normal 20Fr Halyard PEG successfully placed under sterile conditions. External bumper at 3. Rec: 1) OK to use PEG now for meds/free H20 flushes 2) Tube feeds in AM Procedure: EGD/PEG Anesthesia: MAC Surgeon: GAGANDEEP MCCAULEY Estimated blood loss: minimal Pathology: none Condition: stable Disposition: floor
--- NOTE | 2016-03-18 17:31 | Post Anesthesia Evaluation ---
- Post Anesthesia Evaluation Patient Participated: No Airway Patent: Yes Stable Respiratory Function: Yes Temp > 96.8F: Yes Pain Manageable: Yes Adequeate Hydration: Yes Anesthesia Complications: No Block Receding Appropriately: Not Applicable
[2016-03-18] MEDS ORDERED: SODIUM BICARBONATE 150 MEQ in STERILE WATER 1,000 ML IV SCH (19:00)
--- NOTE | 2016-03-18 20:33 | Operative Report ---
PROCEDURE PERFORMED: Upper endoscopy with PEG placement. PREOPERATIVE DIAGNOSES: Dysphagia, malnutrition. POSTOPERATIVE DIAGNOSES: Dysphagia, malnutrition. ANESTHESIA: Via monitored anesthesia care. DESCRIPTION OF PROCEDURE: After informed consent was obtained from the patient's , the patient was left in supine position. Standard Fujinon upper endoscope was inserted into the mouth and advanced to the second portion of duodenum. Scope was then carefully withdrawn, and mucosa was carefully examined. FINDINGS: The esophagus, stomach and duodenum (up to the second portion) all appeared normal. After a complete exam, the scope was withdrawn back into the stomach and the stomach was insufflated with air to allow for satisfactory 1:1 location for PEG placement. The area was then cleaned and prepped in sterile fashion. The skin was locally anesthetized with 1% lidocaine. A small incision was subsequently made with a scalpel. A trocar was introduced under endoscopic guidance through the incision successfully. A guidewire was then advanced through the trocar, which was retrieved via snare and the scope along with the guidewire was withdrawn from the patient. A 20-Swedish Halyard PEG was attached to the proximal end of the guidewire and the PEG was pulled out through the patient's anterior gastric wall with the external bolster measuring at 3. Prior to any incision, the patient received Ancef IV piggyback x 1. COMPLICATIONS: None. ESTIMATED BLOOD LOSS: Minimal. IMPRESSION: A 60-year-old woman with encephalopathy of unclear etiology, awaiting facility placement. Her nasogastric tube has been removed, and she has had a PEG tube successfully placed today. RECOMMENDATIONS: 1. Return to floor. 2. Okay to use the PEG now for medications and free water flushes. 3. Tube feeds to start in the morning. JOB# [id number] LARA/CRISTIAN SIMMONS
[2016-03-18] MEDS: PULMICORT IH SCH (20:35)
[2016-03-18] MEDS: BROVANA NEBU IH SCH (20:35)
[2016-03-19] MEDS: PERCOCET 5/325 PO PRN (00:13)
[2016-03-19] MEDS: ATIVAN IV PRN (00:13)
[2016-03-19] MEDS: HEPARIN SUB-Q SCH ×4 (00:14→22:27)
[2016-03-19] MEDS: NOVOLOG SUB-Q SCH ×4 (01:31→18:12)
[2016-03-19] MEDS: TYLENOL PO PRN (05:33)
[2016-03-19 06:07] LABS: Hematocrit 20.1 % (30.3-42.9); Hemoglobin 6.7 gm/dl (10.1-14.3); Mean Corpuscular HGB Conc 33 % (30-34); Mean Corpuscular Hemoglobin 32 pg (28-32); Mean Corpuscular Volume 96 fl (79-97); Platelet Count 250 K/mm3 (140-440); Red Blood Count 2.11 M/mm3 (3.65-5.03); Red Cell Distribution Width 17.5 % (13.2-15.2); White Blood Count 18.2 K/mm3 (4.5-11.0)
[2016-03-19 06:30] LABS: BUN/Creatinine Ratio 14.54; Calcium 7.7 mg/dL (8.4-10.2); Chloride 114.1 mmol/L (98-107); Potassium 4.7 mmol/L (3.6-5.0)
[2016-03-19] MEDS ORDERED: D50W (25GM) IV PRN (06:44)
[2016-03-19] MEDS: BROVANA NEBU IH SCH ×2 (07:31→21:58)
[2016-03-19] MEDS: PULMICORT IH SCH ×2 (07:31→21:58)
--- NOTE | 2016-03-19 07:32 | Gastroenterology Progress Note ---
Assessment and Plan 60f s/p successful PEG placement. Hb down to 6.7 w/o evidence of overt GI blood loss. Rec: 1) Cont tube feeds 2) Would not pursue colonoscopy unless overt bleeding occurs 3) Transfuse PRBC's as per primary team Please re-call with any questions. Thank you! Subjective Date of service: 03/19/16 Principal diagnosis: AMS/dysphagia/malnutrition Interval history: Pt seen/examined this AM. S/P successful PEG placement yesterday; tube feeds started. No acute overnight events. Objective - Constitutional Vitals: Temp Pulse Resp BP Pulse Ox 100.2 F H 84 16 105/63 100 03/19/16 04:37 03/19/16 04:37 03/19/16 04:37 03/19/16 04:37 03/18/16 21:13 - Neck Neck: supple - Respiratory Respiratory: bilateral: CTA - Cardiovascular Rhythm: regular Heart Sounds: Present: S1 & S2 - Extremities Extremities: No edema - Gastrointestinal General gastrointestinal: Present: soft, non-distended, normal bowel sounds - Labs CBC & Chem 7: 03/19/16 05:20 03/19/16 05:20 Labs: Laboratory Results - last 24 hr 03/18/16 03/18/16 03/18/16 11:11 12:25 17:03 WBC RBC Hgb Hct MCV MCH MCHC RDW Plt Count POC ABG pH 7.320 L POC ABG pCO2 29.9 L POC ABG pO2 102 POC ABG HCO3 15.4 POC ABG Total CO2 16 POC ABG O2 Sat 97 POC ABG Base Excess -11 FiO2 2 Sodium Potassium Chloride Carbon Dioxide Anion Gap BUN Creatinine Estimated GFR BUN/Creatinine Ratio Glucose POC Glucose 82 81 Calcium 03/19/16 03/19/16 03/19/16 01:20 05:20 05:20 WBC 18.2 H RBC 2.11 L Hgb 6.7 L Hct 20.1 L MCV 96 MCH 32 MCHC 33 RDW 17.5 H Plt Count 250 POC ABG pH POC ABG pCO2 POC ABG pO2 POC ABG HCO3 POC ABG Total CO2 POC ABG O2 Sat POC ABG Base Excess FiO2 Sodium 144 Potassium 4.7 Chloride 114.1 H Carbon Dioxide 16 L Anion Gap 19 BUN 32 H Creatinine 2.2 H Estimated GFR 27 BUN/Creatinine Ratio 14.54 Glucose 66 POC Glucose 73 Calcium 7.7 L 03/19/16 06:11 WBC RBC Hgb Hct MCV MCH MCHC RDW Plt Count POC ABG pH POC ABG pCO2 POC ABG pO2 POC ABG HCO3 POC ABG Total CO2 POC ABG O2 Sat POC ABG Base Excess FiO2 Sodium Potassium Chloride Carbon Dioxide Anion Gap BUN Creatinine Estimated GFR BUN/Creatinine Ratio Glucose POC Glucose 63 L Calcium
[2016-03-19] MEDS ORDERED: NACL 0.9% 500 ML 500 ML IV ONE (08:23)
--- NOTE | 2016-03-19 11:23 | Progress Note ---
Assessment and Plan Acute kidney injury patient is able function appears to be improving well Hyponatremia appears to have improved Metabolic acidosis currently on bicarbonate to follow She does have evidence of hydronephrosis -please consult urology severe anemia post procedure please monitor for any bleeding, do necessary workup please monitor serial H&H, patient may benefit from transfusion Patient mostly appear to be prerenal there was no evidence to suggest acute tubular necrosis clinically creatinine has improved markedly Encephalopathy still continues to be present Status post PEG tube placement maintain hydration will recommend at least 300 cc of free water every 6 hours if tolerated Monitor renal function closely Overall long-term prognosis guarded to poor Subjective Principal diagnosis: AMS/dysphagia/malnutrition Interval history: patient was seen today for follow-up on multiple renal related issues Has been noted to have hydronephrosis Events of 24 hours vitals labs intake of medications were reviewed Objective - Vital Signs Vital signs: Vital Signs - 12hr 03/19/16 03/19/16 03/19/16 00:00 00:13 04:37 Temperature 97.9 F 100.2 F H Pulse Rate [ Bilateral Throughout] Pulse Rate [ 91 H 84 From Monitor] Respiratory 20 22 16 Rate Respiratory Rate [Bilateral Throughout] Blood Pressure 116/64 105/63 [Right Radial Artery] O2 Sat by Pulse Oximetry 03/19/16 03/19/16 03/19/16 07:31 07:41 08:00 Temperature 99.0 F Pulse Rate [ 85 87 Bilateral Throughout] Pulse Rate [ 73 From Monitor] Respiratory 18 Rate Respiratory 20 20 Rate [Bilateral Throughout] Blood Pressure 98/62 [Right Radial Artery] O2 Sat by Pulse 99 99 Oximetry - General Appearance General appearance: appears stated age EENT: mucous membranes moist Neck: no JVD Respiratory: Present: Clear to Ascultation, Rales (few basilar crackles but better) Gastrointestinal: normal (nontender abdomen) Psychiatric: other (altered mental status unchanged) - Lab 03/19/16 05:20 03/19/16 05:20 Most recent lab results Calcium 7.7 mg/dL (8.4-10.2) L 03/19/16 05:20 Phosphorus 2.5 mg/dL (2.5-4.5) D 03/07/16 04:53 Magnesium 1.9 mg/dL (1.7-2.3) 03/16/16 06:01
[2016-03-19] MEDS: FOLVITE PO SCH (12:23)
[2016-03-19] MEDS: TENORMIN PO SCH (12:23)
[2016-03-19] MEDS: VITAMIN B-1 FEEDTUBE SCH (12:24)
--- NOTE | 2016-03-19 13:04 | Progress Note ---
Assessment and Plan Assessment and plan: Acute Metabolic encephalopathy. Patient lethargic, confused Workup so far negative, MRI no acute intracranial abnormality noted Lumbar puncture and CSF analysis negative Dysphagia, secondary to metabolic encephalopathy. PEG tube placed yesterday. Tube feed started Acute kidney injury, improving. Cr 2.2 today, was 2.7 yesterday. Nephrology following. Leukocytosis improved, 18.2. No fever. --Positive urine cultures for Escherichia coli, ID was following but just signed off. Recommend monitor off antibiotics --Hypernatremia. Resolved, sodium is 144 --Hypertension. Well controlled on Atenolol, lisinopril, clonidine prn. --Full code status --DVT prophylaxis with heparin Disposition. Discussed with Case management.Plan is for SNF placement. History Interval history: Confusion still present, still agitated on and off, generalized weakness, PEG tube placed yesterday. Hospitalist Physical - Physical exam Narrative exam: Narrative exam: Gen: Not in acute distress, ill looking,emaciated, HEENT: Atraumatic, Dobhoff tube Neck :supple, no JVD Lungs: Lungs clear to auscultation bilaterally, no crackles or wheeze Heart: S1 and S2 regular, no murmurs, rubs or gallop Abdomen:soft, non-tender, non-distended, normal bowel sounds, PEG tube Ext: No edema, no clubbing or cyanosis Neuro: Lethargic, confused. moves all ext - Constitutional Vitals: Temp Pulse Resp BP Pulse Ox 99.0 F 73 18 98/62 99 03/19/16 08:00 03/19/16 08:00 03/19/16 08:00 03/19/16 08:00 03/19/16 08:00 General appearance: Present: no acute distress, well-nourished Results - Labs CBC & Chem 7: 03/19/16 05:20 03/19/16 05:20 Labs: Laboratory Last Values WBC 18.2 K/mm3 (4.5-11.0) H 03/19/16 05:20 RBC 2.11 M/mm3 (3.65-5.03) L 03/19/16 05:20 Hgb 6.7 gm/dl (10.1-14.3) L 03/19/16 05:20 Hct 20.1 % (30.3-42.9) L 03/19/16 05:20 MCV 96 fl (79-97) 03/19/16 05:20 MCH 32 pg (28-32) 03/19/16 05:20 MCHC 33 % (30-34) 03/19/16 05:20 RDW 17.5 % (13.2-15.2) H 03/19/16 05:20 Plt Count 250 K/mm3 (140-440) 03/19/16 05:20 Lymph % (Auto) 12.8 % (13.4-35.0) L 03/15/16 06:40 [place] % (Auto) 8.2 % (0.0-7.3) H 03/15/16 06:40 Eos % (Auto) 3.0 % (0.0-4.3) 03/15/16 06:40 Baso % (Auto) 0.5 % (0.0-1.8) 03/15/16 06:40 Lymph # 1.7 K/mm3 (1.2-5.4) 03/15/16 06:40 [place] # 1.1 K/mm3 (0.0-0.8) H 03/15/16 06:40 Eos # 0.4 K/mm3 (0.0-0.4) 03/15/16 06:40 Baso # 0.1 K/mm3 (0.0-0.1) 03/15/16 06:40 Add Manual Diff Complete 03/16/16 06:01 Total Counted 200 03/16/16 06:01 Seg Neutrophils % 75.5 % (40.0-70.0) H 03/15/16 06:40 Seg Neuts % (Manual) 91.5 % (40.0-70.0) H 03/16/16 06:01 Band Neutrophils % 4.0 % 03/16/16 06:01 Lymphocytes % (Manual) 2.5 % (13.4-35.0) L 03/16/16 06:01 Reactive Lymphs % (Man) 0 % 03/16/16 06:01 Monocytes % (Manual) 1.5 % (0.0-7.3) 03/16/16 06:01 Eosinophils % (Manual) 0 % (0.0-4.3) 03/16/16 06:01 Basophils % (Manual) 0.5 % (0.0-1.8) 03/16/16 06:01 Metamyelocytes % 0 % 03/16/16 06:01 Myelocytes % 0 % 03/16/16 06:01 Promyelocytes % 0 % 03/16/16 06:01 Blast Cells % 0 % 03/16/16 06:01 Nucleated RBC % Not Reportable 03/16/16 06:01 Seg Neutrophils # 10.2 K/mm3 (1.8-7.7) H 03/15/16 06:40 Seg Neutrophils # Man 25.4 K/mm3 (1.8-7.7) H 03/16/16 06:01 Band Neutrophils # 1.1 K/mm3 03/16/16 06:01 Lymphocytes # (Manual) 0.7 K/mm3 (1.2-5.4) L 03/16/16 06:01 Abs React Lymphs (Man) 0.0 K/mm3 03/16/16 06:01 Monocytes # (Manual) 0.4 K/mm3 (0.0-0.8) 03/16/16 06:01 Eosinophils # (Manual) 0.0 K/mm3 (0.0-0.4) 03/16/16 06:01 Basophils # (Manual) 0.1 K/mm3 (0.0-0.1) 03/16/16 06:01 Metamyelocytes # 0.0 K/mm3 03/16/16 06:01 Myelocytes # 0.0 K/mm3 03/16/16 06:01 Promyelocytes # 0.0 K/mm3 03/16/16 06:01 Blast Cells # 0.0 K/mm3 03/16/16 06:01 WBC Morphology Not Reportable 03/16/16 06:01 Hypersegmented Neuts Not Reportable 03/16/16 06:01 Hyposegmented Neuts Not Reportable 03/16/16 06:01 Hypogranular Neuts Not Reportable 03/16/16 06:01 Smudge Cells Not Reportable 03/16/16 06:01 Toxic Granulation Not Reportable 03/16/16 06:01 Toxic Vacuolation Not Reportable 03/16/16 06:01 Dohle Bodies Not Reportable 03/16/16 06:01 Pelger-Huet Anomaly Not Reportable 03/16/16 06:01 Betty Rods Not Reportable 03/16/16 06:01 Platelet Estimate Appears normal 03/16/16 06:01 Clumped Platelets Not Reportable 03/16/16 06:01 Plt Clumps, EDTA Not Reportable 03/16/16 06:01 Large Platelets Not Reportable 03/16/16 06:01 Giant Platelets Not Reportable 03/16/16 06:01 Platelet Satelliting Not Reportable 03/16/16 06:01 Plt Morphology Comment Not Reportable 03/16/16 06:01 RBC Morphology Not Reportable 03/16/16 06:01 Dimorphic RBCs Not Reportable 03/16/16 06:01 Polychromasia Few 03/16/16 06:01 Hypochromasia Not Reportable 03/16/16 06:01 Poikilocytosis Not Reportable 03/16/16 06:01 Anisocytosis 1+ 03/16/16 06:01 Microcytosis Not Reportable 03/16/16 06:01 Macrocytosis Not Reportable 03/16/16 06:01 Spherocytes Not Reportable 03/16/16 06:01 Pappenheimer Bodies Not Reportable 03/16/16 06:01 Sickle Cells Not Reportable 03/16/16 06:01 Target Cells Few 03/16/16 06:01 Tear Drop Cells Rare 03/16/16 06:01 Ovalocytes Not Reportable 03/16/16 06:01 Helmet Cells Not Reportable 03/16/16 06:01 [place] Bodies Not Reportable 03/16/16 06:01 [place] Rings Not Reportable 03/16/16 06:01 [place] Cells Not Reportable 03/16/16 06:01 Bite Cells Not Reportable 03/16/16 06:01 Crenated Cell Not Reportable 03/16/16 06:01 Elliptocytes Not Reportable 03/16/16 06:01 Acanthocytes (Spur) Not Reportable 03/16/16 06:01 Rouleaux Not Reportable 03/16/16 06:01 Hemoglobin C Crystals Not Reportable 03/16/16 06:01 Schistocytes Not Reportable 03/16/16 06:01 Malaria parasites Not Reportable 03/16/16 06:01 Matthew Bodies Not Reportable 03/16/16 06:01 Hem Pathologist Commnt No 03/16/16 06:01 PT 13.0 Sec. (12.2-14.9) 03/12/16 09:50 INR 0.99 (0.87-1.13) 03/12/16 09:50 APTT 38.8 Sec. (24.2-36.6) H 03/12/16 09:50 POC ABG pH 7.320 (7.35-7.45) L 03/18/16 11:11 POC ABG pCO2 29.9 (35-45) L 03/18/16 11:11 POC ABG pO2 102 (80-105) 03/18/16 11:11 POC ABG HCO3 15.4 03/18/16 11:11 POC ABG Total CO2 16 03/18/16 11:11 POC ABG O2 Sat 97 03/18/16 11:11 POC ABG Base Excess -11 03/18/16 11:11 FiO2 2 % 03/18/16 11:11 Sodium 144 mmol/L (137-145) 03/19/16 05:20 Potassium 4.7 mmol/L (3.6-5.0) 03/19/16 05:20 Chloride 114.1 mmol/L (98-107) H 03/19/16 05:20 Carbon Dioxide 16 mmol/L (22-30) L 03/19/16 05:20 Anion Gap 19 mmol/L 03/19/16 05:20 BUN 32 mg/dL (7-17) H 03/19/16 05:20 Creatinine 2.2 mg/dL (0.7-1.2) H 03/19/16 05:20 Estimated GFR 27 ml/min 03/19/16 05:20 BUN/Creatinine Ratio 14.54 % 03/19/16 05:20 Glucose 66 mg/dL (65-100) 03/19/16 05:20 POC Glucose 138 (70-105) H 03/19/16 12:14 Osmolality 301 Mosm/kg 03/17/16 23:50 Lactic Acid 1.7 mmol/L (0.7-2.0) 03/03/16 02:43 Uric Acid 8.4 mg/dL (3.5-7.6) H 03/17/16 23:50 Calcium 7.7 mg/dL (8.4-10.2) L 03/19/16 05:20 Phosphorus 2.5 mg/dL (2.5-4.5) D 03/07/16 04:53 Magnesium 1.9 mg/dL (1.7-2.3) 03/16/16 06:01 Total Bilirubin 1.4 mg/dL (0.1-1.2) H 03/05/16 07:39 AST 38 units/L (5-40) 03/05/16 07:39 ALT 17 units/L (7-56) 03/05/16 07:39 Alkaline Phosphatase 105 units/L (35-129) 03/05/16 07:39 Ammonia 55.0 umol/L (25-60) 03/07/16 04:53 Total Creatine Kinase 42 units/L (30-135) 03/02/16 18:35 CK-MB (CK-2) < 1.0 ng/mL (0.0-4.0) 03/02/16 18:35 CK-MB (CK-2) Rel Index 2.3 (0-4) 03/02/16 18:35 Troponin T < 0.010 ng/mL (0.00-0.029) 03/02/16 18:35 Total Protein 5.9 g/dL (6.3-8.2) L 03/05/16 07:39 Albumin 2.4 g/dL (3.9-5) L 03/05/16 07:39 Albumin/Globulin Ratio 0.7 % 03/05/16 07:39 TSH 0.427 mlU/mL (0.270-4.200) 03/04/16 19:38 Free T4 1.36 ng/dL (0.76-1.46) 03/02/16 18:35 Urine Color Vera (Yellow) 03/02/16 20:44 Urine Turbidity Clear (Clear) 03/02/16 20:44 Urine pH 7.0 (5.0-7.0) 03/02/16 20:44 Ur Specific [place] 1.023 (1.003-1.030) 03/02/16 20:44 Urine Protein 30 mg/dl mg/dL (Negative) 03/02/16 20:44 Urine Glucose (UA) Neg mg/dL (Negative) 03/02/16 20:44 Urine Ketones 20 mg/dL (Negative) 03/02/16 20:44 Urine Blood Neg (Negative) 03/02/16 20:44 Urine Nitrite Neg (Negative) 03/02/16 20:44 Urine Bilirubin Mod (Negative) 03/02/16 20:44 Urine Ictotest Positive (Negative) 03/02/16 20:44 Urine Urobilinogen 4.0 mg/dL (<2.0) 03/02/16 20:44 Ur Leukocyte Esterase Tr (Negative) 03/02/16 20:44 Urine WBC (Auto) < 1.0 /HPF (0.0-6.0) 03/02/16 20:44 Urine RBC (Auto) 1.0 /HPF (0.0-6.0) 03/02/16 20:44 U Epithel Cells (Auto) 3.0 /HPF (0-13.0) 03/02/16 20:44 Urine Bacteria (Auto) 1+ /HPF (Negative) 03/02/16 20:44 Urine Mucus 3+ /HPF 03/02/16 20:44 CSF Appearance Clear 03/12/16 Unknown CSF Color Colorless 03/12/16 Unknown CSF WBC 0 /mm3 (1-10) 03/12/16 Unknown CSF RBC 102 /mm3 (0-0) 03/12/16 Unknown CSF Seg Neutrophils 0 % (0-6) 03/12/16 Unknown CSF Lymphocytes % 0 % (40-80) 03/12/16 Unknown CSF Reactive Lymphs 0 % 03/12/16 Unknown CSF Monocytes % 0 % (15-45) 03/12/16 Unknown CSF Eosinophils % 0 % 03/12/16 Unknown CSF Basophils 0 % 03/12/16 Unknown CSF Comment No cells seen 03/12/16 Unknown CSF Pathologist Review C 03/12/16 Unknown CSF Glucose 59 mg/dL 03/12/16 Unknown CSF Total Protein 48 mg/dL 03/12/16 Unknown Blood Type B POSITIVE 03/19/16 09:30 Antibody Screen Negative 03/19/16 09:30 Crossmatch See Detail 03/19/16 09:30
[2016-03-19] MEDS ORDERED: NACL 0.9% 500 ML 500 ML ONE (17:10)
--- NOTE | 2016-03-19 17:35 | Event Note ---
Date: 03/19/16 Rapid response called because patient hypoxic. Given Neb breathing treatment, put on oxygen by ventimask. Will get Chest X ray.
--- NOTE | 2016-03-19 18:12 | XRay Report ---
FINAL REPORT PROCEDURE: XR CHEST 1V AP TECHNIQUE: Chest radiograph anteroposterior view. CPT 62684 HISTORY: Shortness of breath, hypoxic. COMPARISON: Chest radiograph dated 03/13/2016. FINDINGS: Heart: Normal. Mediastinum/Vessels: Continued central vascular congestion. Lungs/Pleural space: Mild worsening of subtle interstitial opacities with increasing bibasilar opacities, right pleural effusion, and suspect small left pleural effusion. Right effusion tracks into the right fissure. Bony thorax: Mild degenerative changes. Life support devices: PICC line tip in the SVC. IMPRESSION: Central vascular congestion with mild worsening of pulmonary opacities and effusions, right greater than left. Consider pulmonary edema with atelectasis, cannot exclude underlying pneumonia. Consider attention on followup radiographs. PICC line tip in the SVC.
[2016-03-19] MEDS ORDERED: LASIX IV ONE ×2 (18:17→23:00)
[2016-03-20] MEDS: NOVOLOG SUB-Q SCH ×4 (01:43→18:28)
[2016-03-20] MEDS: HEPARIN SUB-Q SCH ×2 (05:00→14:01)
[2016-03-20] MEDS: BROVANA NEBU IH SCH ×2 (08:27→20:49)
[2016-03-20] MEDS: PULMICORT IH SCH ×2 (08:27→20:49)
[2016-03-20] MEDS: TENORMIN PO SCH (09:54)
[2016-03-20] MEDS: VITAMIN B-1 FEEDTUBE SCH (09:55)
[2016-03-20] MEDS: FOLVITE PO SCH (09:55)
[2016-03-20] MEDS: PERCOCET 5/325 PO PRN ×2 (10:01→23:58)
--- NOTE | 2016-03-20 12:40 | Progress Note ---
Assessment and Plan Assessment and plan: Acute Metabolic encephalopathy. Patient lethargic, confused Workup so far negative, MRI no acute intracranial abnormality noted Lumbar puncture and CSF analysis negative Anemia due to chronic disease. Hemoglobin was 6.7 yesterday. Transfuse 2 units PRBC. get stool occult blood. Labs pending for today Dysphagia, secondary to metabolic encephalopathy. PEG tube placed yesterday. Tube feed started Acute kidney injury, improving. Cr 2.2 yesterday. Labs pending today. Nephrology following. Leukocytosis improved, 18.2. No fever. --Positive urine cultures for Escherichia coli, ID was following but just signed off. Recommend monitor off antibiotics --Hypernatremia. Resolved, sodium is 144 --Hypertension. Well controlled on Atenolol, lisinopril, clonidine prn. --Full code status --DVT prophylaxis with heparin Disposition. Discussed with Case management.Plan is for SNF placement. History Interval history: Confusion still present, still agitated on and off, generalized weakness, PEG tube placed 03/18/16. Hospitalist Physical - Physical exam Narrative exam: Narrative exam: Gen: Not in acute distress, ill looking,emaciated, HEENT: Atraumatic, Dobhoff tube Neck :supple, no JVD Lungs: Lungs clear to auscultation bilaterally, no crackles or wheeze Heart: S1 and S2 regular, no murmurs, rubs or gallop Abdomen:soft, non-tender, non-distended, normal bowel sounds, PEG tube Ext: No edema, no clubbing or cyanosis Neuro: Lethargic, confused. moves all ext, does not follow commands - Constitutional Vitals: Temp Pulse Resp BP Pulse Ox 98.1 F 73 20 131/57 100 03/20/16 08:00 03/20/16 09:54 03/20/16 08:37 03/20/16 09:54 03/20/16 08:27 Results - Labs CBC & Chem 7: 03/19/16 05:20 03/19/16 05:20 Labs: Laboratory Last Values WBC 18.2 K/mm3 (4.5-11.0) H 03/19/16 05:20 RBC 2.11 M/mm3 (3.65-5.03) L 03/19/16 05:20 Hgb 6.7 gm/dl (10.1-14.3) L 03/19/16 05:20 Hct 20.1 % (30.3-42.9) L 03/19/16 05:20 MCV 96 fl (79-97) 03/19/16 05:20 MCH 32 pg (28-32) 03/19/16 05:20 MCHC 33 % (30-34) 03/19/16 05:20 RDW 17.5 % (13.2-15.2) H 03/19/16 05:20 Plt Count 250 K/mm3 (140-440) 03/19/16 05:20 Lymph % (Auto) 12.8 % (13.4-35.0) L 03/15/16 06:40 [place] % (Auto) 8.2 % (0.0-7.3) H 03/15/16 06:40 Eos % (Auto) 3.0 % (0.0-4.3) 03/15/16 06:40 Baso % (Auto) 0.5 % (0.0-1.8) 03/15/16 06:40 Lymph # 1.7 K/mm3 (1.2-5.4) 03/15/16 06:40 [place] # 1.1 K/mm3 (0.0-0.8) H 03/15/16 06:40 Eos # 0.4 K/mm3 (0.0-0.4) 03/15/16 06:40 Baso # 0.1 K/mm3 (0.0-0.1) 03/15/16 06:40 Add Manual Diff Complete 03/16/16 06:01 Total Counted 200 03/16/16 06:01 Seg Neutrophils % 75.5 % (40.0-70.0) H 03/15/16 06:40 Seg Neuts % (Manual) 91.5 % (40.0-70.0) H 03/16/16 06:01 Band Neutrophils % 4.0 % 03/16/16 06:01 Lymphocytes % (Manual) 2.5 % (13.4-35.0) L 03/16/16 06:01 Reactive Lymphs % (Man) 0 % 03/16/16 06:01 Monocytes % (Manual) 1.5 % (0.0-7.3) 03/16/16 06:01 Eosinophils % (Manual) 0 % (0.0-4.3) 03/16/16 06:01 Basophils % (Manual) 0.5 % (0.0-1.8) 03/16/16 06:01 Metamyelocytes % 0 % 03/16/16 06:01 Myelocytes % 0 % 03/16/16 06:01 Promyelocytes % 0 % 03/16/16 06:01 Blast Cells % 0 % 03/16/16 06:01 Nucleated RBC % Not Reportable 03/16/16 06:01 Seg Neutrophils # 10.2 K/mm3 (1.8-7.7) H 03/15/16 06:40 Seg Neutrophils # Man 25.4 K/mm3 (1.8-7.7) H 03/16/16 06:01 Band Neutrophils # 1.1 K/mm3 03/16/16 06:01 Lymphocytes # (Manual) 0.7 K/mm3 (1.2-5.4) L 03/16/16 06:01 Abs React Lymphs (Man) 0.0 K/mm3 03/16/16 06:01 Monocytes # (Manual) 0.4 K/mm3 (0.0-0.8) 03/16/16 06:01 Eosinophils # (Manual) 0.0 K/mm3 (0.0-0.4) 03/16/16 06:01 Basophils # (Manual) 0.1 K/mm3 (0.0-0.1) 03/16/16 06:01 Metamyelocytes # 0.0 K/mm3 03/16/16 06:01 Myelocytes # 0.0 K/mm3 03/16/16 06:01 Promyelocytes # 0.0 K/mm3 03/16/16 06:01 Blast Cells # 0.0 K/mm3 03/16/16 06:01 WBC Morphology Not Reportable 03/16/16 06:01 Hypersegmented Neuts Not Reportable 03/16/16 06:01 Hyposegmented Neuts Not Reportable 03/16/16 06:01 Hypogranular Neuts Not Reportable 03/16/16 06:01 Smudge Cells Not Reportable 03/16/16 06:01 Toxic Granulation Not Reportable 03/16/16 06:01 Toxic Vacuolation Not Reportable 03/16/16 06:01 Dohle Bodies Not Reportable 03/16/16 06:01 Pelger-Huet Anomaly Not Reportable 03/16/16 06:01 Betty Rods Not Reportable 03/16/16 06:01 Platelet Estimate Appears normal 03/16/16 06:01 Clumped Platelets Not Reportable 03/16/16 06:01 Plt Clumps, EDTA Not Reportable 03/16/16 06:01 Large Platelets Not Reportable 03/16/16 06:01 Giant Platelets Not Reportable 03/16/16 06:01 Platelet Satelliting Not Reportable 03/16/16 06:01 Plt Morphology Comment Not Reportable 03/16/16 06:01 RBC Morphology Not Reportable 03/16/16 06:01 Dimorphic RBCs Not Reportable 03/16/16 06:01 Polychromasia Few 03/16/16 06:01 Hypochromasia Not Reportable 03/16/16 06:01 Poikilocytosis Not Reportable 03/16/16 06:01 Anisocytosis 1+ 03/16/16 06:01 Microcytosis Not Reportable 03/16/16 06:01 Macrocytosis Not Reportable 03/16/16 06:01 Spherocytes Not Reportable 03/16/16 06:01 Pappenheimer Bodies Not Reportable 03/16/16 06:01 Sickle Cells Not Reportable 03/16/16 06:01 Target Cells Few 03/16/16 06:01 Tear Drop Cells Rare 03/16/16 06:01 Ovalocytes Not Reportable 03/16/16 06:01 Helmet Cells Not Reportable 03/16/16 06:01 [place] Bodies Not Reportable 03/16/16 06:01 [place] Rings Not Reportable 03/16/16 06:01 [place] Cells Not Reportable 03/16/16 06:01 Bite Cells Not Reportable 03/16/16 06:01 Crenated Cell Not Reportable 03/16/16 06:01 Elliptocytes Not Reportable 03/16/16 06:01 Acanthocytes (Spur) Not Reportable 03/16/16 06:01 Rouleaux Not Reportable 03/16/16 06:01 Hemoglobin C Crystals Not Reportable 03/16/16 06:01 Schistocytes Not Reportable 03/16/16 06:01 Malaria parasites Not Reportable 03/16/16 06:01 Matthew Bodies Not Reportable 03/16/16 06:01 Hem Pathologist Commnt No 03/16/16 06:01 PT 13.0 Sec. (12.2-14.9) 03/12/16 09:50 INR 0.99 (0.87-1.13) 03/12/16 09:50 APTT 38.8 Sec. (24.2-36.6) H 03/12/16 09:50 POC ABG pH 7.320 (7.35-7.45) L 03/18/16 11:11 POC ABG pCO2 29.9 (35-45) L 03/18/16 11:11 POC ABG pO2 102 (80-105) 03/18/16 11:11 POC ABG HCO3 15.4 03/18/16 11:11 POC ABG Total CO2 16 03/18/16 11:11 POC ABG O2 Sat 97 03/18/16 11:11 POC ABG Base Excess -11 03/18/16 11:11 FiO2 2 % 03/18/16 11:11 Sodium 144 mmol/L (137-145) 03/19/16 05:20 Potassium 4.7 mmol/L (3.6-5.0) 03/19/16 05:20 Chloride 114.1 mmol/L (98-107) H 03/19/16 05:20 Carbon Dioxide 16 mmol/L (22-30) L 03/19/16 05:20 Anion Gap 19 mmol/L 03/19/16 05:20 BUN 32 mg/dL (7-17) H 03/19/16 05:20 Creatinine 2.2 mg/dL (0.7-1.2) H 03/19/16 05:20 Estimated GFR 27 ml/min 03/19/16 05:20 BUN/Creatinine Ratio 14.54 % 03/19/16 05:20 Glucose 66 mg/dL (65-100) 03/19/16 05:20 POC Glucose 138 (70-105) H 03/20/16 11:52 Osmolality 301 Mosm/kg 03/17/16 23:50 Lactic Acid 1.7 mmol/L (0.7-2.0) 03/03/16 02:43 Uric Acid 8.4 mg/dL (3.5-7.6) H 03/17/16 23:50 Calcium 7.7 mg/dL (8.4-10.2) L 03/19/16 05:20 Phosphorus 2.5 mg/dL (2.5-4.5) D 03/07/16 04:53 Magnesium 1.9 mg/dL (1.7-2.3) 03/16/16 06:01 Total Bilirubin 1.4 mg/dL (0.1-1.2) H 03/05/16 07:39 AST 38 units/L (5-40) 03/05/16 07:39 ALT 17 units/L (7-56) 03/05/16 07:39 Alkaline Phosphatase 105 units/L (35-129) 03/05/16 07:39 Ammonia 55.0 umol/L (25-60) 03/07/16 04:53 Total Creatine Kinase 42 units/L (30-135) 03/02/16 18:35 CK-MB (CK-2) < 1.0 ng/mL (0.0-4.0) 03/02/16 18:35 CK-MB (CK-2) Rel Index 2.3 (0-4) 03/02/16 18:35 Troponin T < 0.010 ng/mL (0.00-0.029) 03/02/16 18:35 Total Protein 5.9 g/dL (6.3-8.2) L 03/05/16 07:39 Albumin 2.4 g/dL (3.9-5) L 03/05/16 07:39 Albumin/Globulin Ratio 0.7 % 03/05/16 07:39 TSH 0.427 mlU/mL (0.270-4.200) 03/04/16 19:38 Free T4 1.36 ng/dL (0.76-1.46) 03/02/16 18:35 Urine Color Vera (Yellow) 03/02/16 20:44 Urine Turbidity Clear (Clear) 03/02/16 20:44 Urine pH 7.0 (5.0-7.0) 03/02/16 20:44 Ur Specific [place] 1.023 (1.003-1.030) 03/02/16 20:44 Urine Protein 30 mg/dl mg/dL (Negative) 03/02/16 20:44 Urine Glucose (UA) Neg mg/dL (Negative) 03/02/16 20:44 Urine Ketones 20 mg/dL (Negative) 03/02/16 20:44 Urine Blood Neg (Negative) 03/02/16 20:44 Urine Nitrite Neg (Negative) 03/02/16 20:44 Urine Bilirubin Mod (Negative) 03/02/16 20:44 Urine Ictotest Positive (Negative) 03/02/16 20:44 Urine Urobilinogen 4.0 mg/dL (<2.0) 03/02/16 20:44 Ur Leukocyte Esterase Tr (Negative) 03/02/16 20:44 Urine WBC (Auto) < 1.0 /HPF (0.0-6.0) 03/02/16 20:44 Urine RBC (Auto) 1.0 /HPF (0.0-6.0) 03/02/16 20:44 U Epithel Cells (Auto) 3.0 /HPF (0-13.0) 03/02/16 20:44 Urine Bacteria (Auto) 1+ /HPF (Negative) 03/02/16 20:44 Urine Mucus 3+ /HPF 03/02/16 20:44 CSF Appearance Clear 03/12/16 Unknown CSF Color Colorless 03/12/16 Unknown CSF WBC 0 /mm3 (1-10) 03/12/16 Unknown CSF RBC 102 /mm3 (0-0) 03/12/16 Unknown CSF Seg Neutrophils 0 % (0-6) 03/12/16 Unknown CSF Lymphocytes % 0 % (40-80) 03/12/16 Unknown CSF Reactive Lymphs 0 % 03/12/16 Unknown CSF Monocytes % 0 % (15-45) 03/12/16 Unknown CSF Eosinophils % 0 % 03/12/16 Unknown CSF Basophils 0 % 03/12/16 Unknown CSF Comment No cells seen 03/12/16 Unknown CSF Pathologist Review C 03/12/16 Unknown CSF Glucose 59 mg/dL 03/12/16 Unknown CSF Total Protein 48 mg/dL 03/12/16 Unknown Blood Type B POSITIVE 03/19/16 09:30 Antibody Screen Negative 03/19/16 09:30 Crossmatch See Detail 03/19/16 09:30
[2016-03-20 13:14] LABS: Hematocrit 29.6 % (30.3-42.9); Hemoglobin 10.1 gm/dl (10.1-14.3); Mean Corpuscular HGB Conc 34 % (30-34); Mean Corpuscular Hemoglobin 31 pg (28-32); Mean Corpuscular Volume 92 fl (79-97); Platelet Count 229 K/mm3 (140-440); Red Blood Count 3.23 M/mm3 (3.65-5.03); Red Cell Distribution Width 16.2 % (13.2-15.2)
[2016-03-20 13:23] LABS: White Blood Count 30.1 K/mm3 (4.5-11.0)
[2016-03-20 13:39] LABS: BUN/Creatinine Ratio 11.72; Calcium 7.5 mg/dL (8.4-10.2); Chloride 110.4 mmol/L (98-107); Potassium 5.1 mmol/L (3.6-5.0)
--- NOTE | 2016-03-20 16:16 | Progress Note ---
Assessment and Plan Impression: Acute kidney injury secondary to prerenal azotemia vs obstructive uropathy --Renal u/s: right hydronephrosis Acute hypoxic respiratory failure Ecoli UTI Hyperkalemia, mild Metabolic acidosis Anemia Leukocytosis Plan: Patient with worsening renal function and electrolytes IVF for hydration - change to bicarb gtt Empiric abx per primary team Monitor SCr and volume status closely Strict I/O Avoid potential nephrotoxins Recommend transfer to ICU for closer observation - discussed with Dr. Payne Subjective Date of service: 03/20/16 Principal diagnosis: AMS/dysphagia/malnutrition Interval history: 24h events reviewed. Rapid response called yesterday for hypoxia -patient placed on ventimask Objective - Vital Signs Vital signs: Vital Signs - 12hr 03/20/16 03/20/16 03/20/16 04:25 04:55 08:00 Temperature 98.8 F 98.7 F 98.1 F Pulse Rate 79 80 Pulse Rate [ Bilateral Throughout] Pulse Rate [ 73 From Monitor] Respiratory 24 24 18 Rate Respiratory Rate [Bilateral Throughout] Blood Pressure 122/58 124/67 Blood Pressure 131/57 [Left Arm] O2 Sat by Pulse 100 100 100 Oximetry 03/20/16 03/20/16 03/20/16 08:27 08:37 09:54 Temperature Pulse Rate 73 Pulse Rate [ 80 84 Bilateral Throughout] Pulse Rate [ From Monitor] Respiratory Rate Respiratory 20 20 Rate [Bilateral Throughout] Blood Pressure 131/57 Blood Pressure [Left Arm] O2 Sat by Pulse 100 Oximetry - General Appearance General appearance: frail, other (lethargic) EENT: other (scleral edema) Respiratory: Present: Ronchi Cardiology: regular, S1S2 Gastrointestinal: hypoactive bowel sounds, no distended Integumentary: no rash Neurologic: other (lethargic) - Lab 03/20/16 Unknown 03/20/16 Unknown Most recent lab results Calcium 7.5 mg/dL (8.4-10.2) L 03/20/16 Unknown Phosphorus 2.5 mg/dL (2.5-4.5) D 03/07/16 04:53 Magnesium 1.9 mg/dL (1.7-2.3) 03/16/16 06:01
[2016-03-20] MEDS ORDERED: KIONEX PO ONE (19:48)
--- NOTE | 2016-03-20 19:52 | XRay Report ---
FINAL REPORT EXAM: XR CHEST 1V AP HISTORY: hypoxia TECHNIQUE: AP portable view of the chest PRIORS: CXR 03/19/2016 FINDINGS: Lines, tubes, and devices: Right subclavian PICC line is unchanged and in satisfactory position. Lungs and pleura: Trachea is normal in position. Bilateral pleural effusions are noted, moderate on the right and small on the left, unchanged. Obliteration of the medial left hemidiaphragm suggests underlying retrocardiac opacity in the left lower lobe. No change. Cardiomediastinal silhouette: Cardiac and mediastinal silhouettes are unremarkable. Other: Bony structures are intact. IMPRESSION: No significant change. Bilateral effusions and left retrocardiac opacity again noted.
[2016-03-20 23:01] LABS: ISTAT Base Excess -11; ISTAT HCO3 14.8; ISTAT PCO2 25.9 (35-45); ISTAT PH 7.365 (7.35-7.45); ISTAT PO2 90 (80-105); ISTAT SO2 97; ISTAT TCO2 16
[2016-03-20] MEDS: ATIVAN IV PRN (23:59)
[2016-03-21] MEDS: HEPARIN SUB-Q SCH ×4 (00:04→22:45)
[2016-03-21] MEDS: NOVOLOG SUB-Q SCH ×4 (00:10→18:00)
[2016-03-21 04:59] LABS: Hemoglobin 10.5 gm/dl (10.1-14.3); Mean Corpuscular HGB Conc 34 % (30-34); Mean Corpuscular Hemoglobin 31 pg (28-32); Mean Corpuscular Volume 92 fl (79-97); Platelet Count 251 K/mm3 (140-440); Red Blood Count 3.37 M/mm3 (3.65-5.03); Red Cell Distribution Width 16.4 % (13.2-15.2)
[2016-03-21 05:21] LABS: BUN/Creatinine Ratio 11.56; Calcium 7.1 mg/dL (8.4-10.2); Magnesium 1.6 mg/dL (1.7-2.3); Phosphorous 4.6 mg/dL (2.5-4.5); Potassium 4.5 mmol/L (3.6-5.0)
[2016-03-21] MEDS: SODIUM BICARBONATE 150 MEQ in D5W 1,000 ML IV SCH ×2 (06:19→22:48)
[2016-03-21] MEDS: ATIVAN IV PRN (06:32)
[2016-03-21] MEDS: PERCOCET 5/325 PO PRN (06:32)
[2016-03-21] MEDS: PULMICORT IH SCH ×2 (08:36→20:25)
[2016-03-21] MEDS: BROVANA NEBU IH SCH ×2 (08:37→20:25)
[2016-03-21] MEDS: VITAMIN B-1 FEEDTUBE SCH (10:20)
[2016-03-21] MEDS: FOLVITE PO SCH (10:21)
[2016-03-21] MEDS: TENORMIN PO SCH (10:22)
--- NOTE | 2016-03-21 10:26 | Progress Note ---
Assessment and Plan Assessment and plan: Acute Metabolic encephalopathy. Patient lethargic, confused Workup so far negative, MRI no acute intracranial abnormality noted Lumbar puncture and CSF analysis negative Acute respiratory failure. On supplemental Oxygen. Pulm following. Anemia due to chronic disease. Hemoglobin now 10.5 after 2 Units PRBC Dysphagia, secondary to metabolic encephalopathy. PEG tube placed. Tube feed started Acute kidney injury, worsening. 3.2 today was 2.8 yesterday. Nephrology following. Gonzalez catheter, strict I/O Hydronephrosis on the right, seen on ultrasound. Will obtain CT abdomen with contrast today. May consult urology depending on CT abdomen report Leukocytosis fluctuating. No fever. WBC 28 today. Continue to monitor off antibiotics as recommended by ID. --Positive urine cultures for Escherichia coli, ID was following but just signed off. Recommend monitor off antibiotics Hyperkalemia. This is now resolved. Potassium was 5.2 yesterday but is 4.5 today after Kayexalate --Hypernatremia. Resolved --Hypertension. Well controlled on Atenolol, lisinopril, clonidine prn. --Full code status --DVT prophylaxis with heparin Disposition. Discussed with Case management.Plan is for SNF placement when medically stable. I have also had several discussions with at bedside. Poor prognosis. History Interval history: Patient transferred to ICU yesterday for closer monitoring since she is worsening Confusion still present, still agitated on and off, generalized weakness, PEG tube placed 03/18/16. Hospitalist Physical - Physical exam Narrative exam: Narrative exam: Gen: Not in acute distress, ill looking, has Ventimask on HEENT: Atraumatic, Neck :supple, no JVD Lungs: Lungs clear to auscultation bilaterally, no crackles or wheeze Heart: S1 and S2 regular, no murmurs, rubs or gallop Abdomen:soft, non-tender, non-distended, normal bowel sounds, PEG tube Ext: No edema, no clubbing or cyanosis Neuro: Lethargic, confused. moves all ext, does not follow commands - Constitutional Vitals: Temp Pulse Resp BP Pulse Ox 98.8 F 84 18 113/74 100 03/21/16 08:00 03/21/16 09:00 03/21/16 09:00 03/21/16 09:00 03/21/16 08:48 General appearance: Present: no acute distress, well-nourished Results - Labs CBC & Chem 7: 03/21/16 04:45 03/21/16 04:45 Labs: Laboratory Last Values WBC 28.0 K/mm3 (4.5-11.0) H 03/21/16 04:45 RBC 3.37 M/mm3 (3.65-5.03) L 03/21/16 04:45 Hgb 10.5 gm/dl (10.1-14.3) 03/21/16 04:45 Hct 31.0 % (30.3-42.9) 03/21/16 04:45 MCV 92 fl (79-97) 03/21/16 04:45 MCH 31 pg (28-32) 03/21/16 04:45 MCHC 34 % (30-34) 03/21/16 04:45 RDW 16.4 % (13.2-15.2) H 03/21/16 04:45 Plt Count 251 K/mm3 (140-440) 03/21/16 04:45 Lymph % (Auto) 12.8 % (13.4-35.0) L 03/15/16 06:40 [place] % (Auto) 8.2 % (0.0-7.3) H 03/15/16 06:40 Eos % (Auto) 3.0 % (0.0-4.3) 03/15/16 06:40 Baso % (Auto) 0.5 % (0.0-1.8) 03/15/16 06:40 Lymph # 1.7 K/mm3 (1.2-5.4) 03/15/16 06:40 Edwards # 1.1 K/mm3 (0.0-0.8) H 03/15/16 06:40 Eos # 0.4 K/mm3 (0.0-0.4) 03/15/16 06:40 Baso # 0.1 K/mm3 (0.0-0.1) 03/15/16 06:40 Add Manual Diff Complete 03/16/16 06:01 Total Counted 200 03/16/16 06:01 Seg Neutrophils % 75.5 % (40.0-70.0) H 03/15/16 06:40 Seg Neuts % (Manual) 91.5 % (40.0-70.0) H 03/16/16 06:01 Band Neutrophils % 4.0 % 03/16/16 06:01 Lymphocytes % (Manual) 2.5 % (13.4-35.0) L 03/16/16 06:01 Reactive Lymphs % (Man) 0 % 03/16/16 06:01 Monocytes % (Manual) 1.5 % (0.0-7.3) 03/16/16 06:01 Eosinophils % (Manual) 0 % (0.0-4.3) 03/16/16 06:01 Basophils % (Manual) 0.5 % (0.0-1.8) 03/16/16 06:01 Metamyelocytes % 0 % 03/16/16 06:01 Myelocytes % 0 % 03/16/16 06:01 Promyelocytes % 0 % 03/16/16 06:01 Blast Cells % 0 % 03/16/16 06:01 Nucleated RBC % Not Reportable 03/16/16 06:01 Seg Neutrophils # 10.2 K/mm3 (1.8-7.7) H 03/15/16 06:40 Seg Neutrophils # Man 25.4 K/mm3 (1.8-7.7) H 03/16/16 06:01 Band Neutrophils # 1.1 K/mm3 03/16/16 06:01 Lymphocytes # (Manual) 0.7 K/mm3 (1.2-5.4) L 03/16/16 06:01 Abs React Lymphs (Man) 0.0 K/mm3 03/16/16 06:01 Monocytes # (Manual) 0.4 K/mm3 (0.0-0.8) 03/16/16 06:01 Eosinophils # (Manual) 0.0 K/mm3 (0.0-0.4) 03/16/16 06:01 Basophils # (Manual) 0.1 K/mm3 (0.0-0.1) 03/16/16 06:01 Metamyelocytes # 0.0 K/mm3 03/16/16 06:01 Myelocytes # 0.0 K/mm3 03/16/16 06:01 Promyelocytes # 0.0 K/mm3 03/16/16 06:01 Blast Cells # 0.0 K/mm3 03/16/16 06:01 WBC Morphology Not Reportable 03/16/16 06:01 Hypersegmented Neuts Not Reportable 03/16/16 06:01 Hyposegmented Neuts Not Reportable 03/16/16 06:01 Hypogranular Neuts Not Reportable 03/16/16 06:01 Smudge Cells Not Reportable 03/16/16 06:01 Toxic Granulation Not Reportable 03/16/16 06:01 Toxic Vacuolation Not Reportable 03/16/16 06:01 Dohle Bodies Not Reportable 03/16/16 06:01 Pelger-Huet Anomaly Not Reportable 03/16/16 06:01 Betty Rods Not Reportable 03/16/16 06:01 Platelet Estimate Appears normal 03/16/16 06:01 Clumped Platelets Not Reportable 03/16/16 06:01 Plt Clumps, EDTA Not Reportable 03/16/16 06:01 Large Platelets Not Reportable 03/16/16 06:01 Giant Platelets Not Reportable 03/16/16 06:01 Platelet Satelliting Not Reportable 03/16/16 06:01 Plt Morphology Comment Not Reportable 03/16/16 06:01 RBC Morphology Not Reportable 03/16/16 06:01 Dimorphic RBCs Not Reportable 03/16/16 06:01 Polychromasia Few 03/16/16 06:01 Hypochromasia Not Reportable 03/16/16 06:01 Poikilocytosis Not Reportable 03/16/16 06:01 Anisocytosis 1+ 03/16/16 06:01 Microcytosis Not Reportable 03/16/16 06:01 Macrocytosis Not Reportable 03/16/16 06:01 Spherocytes Not Reportable 03/16/16 06:01 Pappenheimer Bodies Not Reportable 03/16/16 06:01 Sickle Cells Not Reportable 03/16/16 06:01 Target Cells Few 03/16/16 06:01 Tear Drop Cells Rare 03/16/16 06:01 Ovalocytes Not Reportable 03/16/16 06:01 Helmet Cells Not Reportable 03/16/16 06:01 [place] Bodies Not Reportable 03/16/16 06:01 [place] Rings Not Reportable 03/16/16 06:01 [place] Cells Not Reportable 03/16/16 06:01 Bite Cells Not Reportable 03/16/16 06:01 Crenated Cell Not Reportable 03/16/16 06:01 Elliptocytes Not Reportable 03/16/16 06:01 Acanthocytes (Spur) Not Reportable 03/16/16 06:01 Rouleaux Not Reportable 03/16/16 06:01 Hemoglobin C Crystals Not Reportable 03/16/16 06:01 Schistocytes Not Reportable 03/16/16 06:01 Malaria parasites Not Reportable 03/16/16 06:01 Matthew Bodies Not Reportable 03/16/16 06:01 Hem Pathologist Commnt No 03/16/16 06:01 PT 13.0 Sec. (12.2-14.9) 03/12/16 09:50 INR 0.99 (0.87-1.13) 03/12/16 09:50 APTT 38.8 Sec. (24.2-36.6) H 03/12/16 09:50 POC ABG pH 7.365 (7.35-7.45) 03/20/16 21:00 POC ABG pCO2 25.9 (35-45) L 03/20/16 21:00 POC ABG pO2 90 (80-105) 03/20/16 21:00 POC ABG HCO3 14.8 03/20/16 21:00 POC ABG Total CO2 16 03/20/16 21:00 POC ABG O2 Sat 97 03/20/16 21:00 POC ABG Base Excess -11 03/20/16 21:00 FiO2 31 % 03/20/16 21:00 Sodium 142 mmol/L (137-145) 03/21/16 04:45 Potassium 4.5 mmol/L (3.6-5.0) 03/21/16 04:45 Chloride 105.0 mmol/L (98-107) 03/21/16 04:45 Carbon Dioxide 25 mmol/L (22-30) D 03/21/16 04:45 Anion Gap 17 mmol/L 03/21/16 04:45 BUN 37 mg/dL (7-17) H 03/21/16 04:45 Creatinine 3.2 mg/dL (0.7-1.2) H 03/21/16 04:45 Estimated GFR 18 ml/min 03/21/16 04:45 BUN/Creatinine Ratio 11.56 % 03/21/16 04:45 Glucose 124 mg/dL (65-100) H 03/21/16 04:45 POC Glucose 136 (70-105) H 03/21/16 05:52 Osmolality 301 Mosm/kg 03/17/16 23:50 Lactic Acid 1.7 mmol/L (0.7-2.0) 03/03/16 02:43 Uric Acid 8.4 mg/dL (3.5-7.6) H 03/17/16 23:50 Calcium 7.1 mg/dL (8.4-10.2) L 03/21/16 04:45 Ionized Calcium 4.9 mg/dL (4.8-5.6) 03/17/16 20:53 Phosphorus 4.6 mg/dL (2.5-4.5) H 03/21/16 04:45 Magnesium 1.6 mg/dL (1.7-2.3) L 03/21/16 04:45 Total Bilirubin 1.4 mg/dL (0.1-1.2) H 03/05/16 07:39 AST 38 units/L (5-40) 03/05/16 07:39 ALT 17 units/L (7-56) 03/05/16 07:39 Alkaline Phosphatase 105 units/L (35-129) 03/05/16 07:39 Ammonia 55.0 umol/L (25-60) 03/07/16 04:53 Total Creatine Kinase 42 units/L (30-135) 03/02/16 18:35 CK-MB (CK-2) < 1.0 ng/mL (0.0-4.0) 03/02/16 18:35 CK-MB (CK-2) Rel Index 2.3 (0-4) 03/02/16 18:35 Troponin T < 0.010 ng/mL (0.00-0.029) 03/02/16 18:35 Total Protein 5.9 g/dL (6.3-8.2) L 03/05/16 07:39 Albumin 2.4 g/dL (3.9-5) L 03/05/16 07:39 Albumin/Globulin Ratio 0.7 % 03/05/16 07:39 TSH 0.427 mlU/mL (0.270-4.200) 03/04/16 19:38 Free T4 1.36 ng/dL (0.76-1.46) 03/02/16 18:35 Urine Color Vera (Yellow) 03/02/16 20:44 Urine Turbidity Clear (Clear) 03/02/16 20:44 Urine pH 7.0 (5.0-7.0) 03/02/16 20:44 Ur Specific [place] 1.023 (1.003-1.030) 03/02/16 20:44 Urine Protein 30 mg/dl mg/dL (Negative) 03/02/16 20:44 Urine Glucose (UA) Neg mg/dL (Negative) 03/02/16 20:44 Urine Ketones 20 mg/dL (Negative) 03/02/16 20:44 Urine Blood Neg (Negative) 03/02/16 20:44 Urine Nitrite Neg (Negative) 03/02/16 20:44 Urine Bilirubin Mod (Negative) 03/02/16 20:44 Urine Ictotest Positive (Negative) 03/02/16 20:44 Urine Urobilinogen 4.0 mg/dL (<2.0) 03/02/16 20:44 Ur Leukocyte Esterase Tr (Negative) 03/02/16 20:44 Urine WBC (Auto) < 1.0 /HPF (0.0-6.0) 03/02/16 20:44 Urine RBC (Auto) 1.0 /HPF (0.0-6.0) 03/02/16 20:44 U Epithel Cells (Auto) 3.0 /HPF (0-13.0) 03/02/16 20:44 Urine Bacteria (Auto) 1+ /HPF (Negative) 03/02/16 20:44 Urine Mucus 3+ /HPF 03/02/16 20:44 CSF Appearance Clear 03/12/16 Unknown CSF Color Colorless 03/12/16 Unknown CSF WBC 0 /mm3 (1-10) 03/12/16 Unknown CSF RBC 102 /mm3 (0-0) 03/12/16 Unknown CSF Seg Neutrophils 0 % (0-6) 03/12/16 Unknown CSF Lymphocytes % 0 % (40-80) 03/12/16 Unknown CSF Reactive Lymphs 0 % 03/12/16 Unknown CSF Monocytes % 0 % (15-45) 03/12/16 Unknown CSF Eosinophils % 0 % 03/12/16 Unknown CSF Basophils 0 % 03/12/16 Unknown CSF Comment No cells seen 03/12/16 Unknown CSF Pathologist Review C 03/12/16 Unknown CSF Glucose 59 mg/dL 03/12/16 Unknown CSF Total Protein 48 mg/dL 03/12/16 Unknown Blood Type B POSITIVE 03/19/16 09:30 Antibody Screen Negative 03/19/16 09:30 Crossmatch See Detail 03/19/16 09:30
--- NOTE | 2016-03-21 10:38 | Consultation ---
History of Present Illness Consult date: 03/21/16 Requesting physician: NOAH PEREZ Reason for consult: dyspnea, hypoxemia History of present illness: 60 female, with renal failure and encephalopathy. Worsening renal function with hyperkalemia and hydronephrosis on the right and right sided pleural effusion, seen by renal yesterday and given tachypnea and worsening renal function suggested move to ICU. Today patient is Stuporous, eyes open but not speaking. Respirations are fast but even. Satting 100% on Ventimask. at bedside. Past History Past Medical History: hypertension, other (oa, nicotine dependence) Past Surgical History: hysterectomy, Other (rotator cuff surgery) Social history: , smoking. denies: alcohol abuse, prescription drug abuse Family history: hypertension Medications and Allergies Allergies Allergy/AdvReac Type Severity Reaction Status Date / Time No Known Allergies Allergy Verified 03/02/16 21:45 Home Medications Medication Instructions Recorded Confirmed Last Taken Type oxyCODONE /ACETAMINOPHEN [Percocet 1 tab PO Q6HR PRN #20 tablet 03/12/13 Unknown Rx 5/325 mg] Acetaminophen-Codeine #3 TAB 30 mg PO PRN 03/03/16 Unknown History FLUoxetine HCL [FLUoxetine] 20 mg PO DAILY 03/03/16 03/03/16 Unknown History Gabapentin 600 mg PO TID 03/03/16 03/03/16 Unknown History Ibuprofen 800 mg PO PRN 03/03/16 Unknown History Lisinopril/Hydrochlorothiazide 20 mg PO DAILY 03/03/16 03/03/16 Unknown History Naproxen TAB 500 mg PO BID 03/03/16 03/03/16 Unknown History Sulfamethoxazole/Trimethoprim 800 mg PO BID 03/03/16 03/03/16 Unknown History Symbicort 160-4.5 (Nf) 160 INHALATION BID 03/03/16 Unknown History hydrOXYZINE PAMOATE [hydrOXYzine 25 mg PO BID 03/03/16 03/03/16 Unknown History Pamoate] traZODone 100 mg PO QHS 03/03/16 03/03/16 Unknown History Active Meds: Active Medications Acetaminophen (Tylenol) 650 mg PO Q4H PRN PRN Reason: Pain MILD(1-3)/Fever >100.5/GILL Last Admin: 03/19/16 05:33 Dose: 650 mg Albuterol (Proventil) 2.5 mg IH Q6HRT PRN PRN Reason: Shortness Of Breath Last Admin: 03/18/16 11:17 Dose: 2.5 mg Lipase/Protease/Amylase (Diana Kinney 10,500 Unit) 1 each FEEDTUBE PRN PRN PRN Reason: For Clogged Feeding Tube Arformoterol Tartrate (Brovana Nebu) 15 mcg IH Q12HRT [facility] Last Admin: 03/21/16 08:37 Dose: 15 mcg Atenolol (Tenormin) 50 mg PO QDAY [facility] Last Admin: 03/20/16 09:54 Dose: 50 mg Budesonide (Pulmicort) 0.5 mg IH Q12HRT [facility] Last Admin: 03/21/16 08:36 Dose: 0.5 mg Clonidine HCl (Catapres) 0.1 mg PO Q4H PRN PRN Reason: For SBP>170 or DBP>110 Dextrose (D50w (25gm)) 50 ml IV PRN PRN PRN Reason: Hypoglycemia Last Admin: 03/19/16 07:20 Dose: 50 ml Folic Acid (Folvite) 1 mg PO QDAY [facility] Last Admin: 03/20/16 09:55 Dose: 1 mg Heparin Sodium (Porcine) (Heparin) 5,000 unit SUB-Q Q8HR [facility] Last Admin: 03/21/16 06:32 Dose: 5,000 unit Hydralazine HCl (Apresoline) 20 mg IV Q6H PRN PRN Reason: Blood Pressure Last Admin: 03/15/16 22:33 Dose: 20 mg Sodium Bicarbonate 150 meq/ (Dextrose) 1,150 mls @ 75 mls/hr IV DIRECT [facility] Last Admin: 03/21/16 06:19 Dose: 75 mls/hr Insulin Aspart (Novolog) 0 units SUB-Q Q6HR [facility] PRN Reason: Protocol Last Admin: 03/21/16 06:29 Dose: Not Given Lorazepam (Ativan) 1 mg IV Q1H PRN PRN Reason: agitation or anxiety Last Admin: 03/21/16 06:32 Dose: 1 mg Lorazepam (Ativan) 4 mg IV Q1HR PRN PRN Reason: CIWA-Ar 16- Last Admin: 03/15/16 22:33 Dose: 4 mg Lorazepam (Ativan) 2 mg IV Q1HR PRN PRN Reason: CIWA-Ar 8-15 Last Admin: 03/16/16 23:35 Dose: 2 mg Lorazepam (Ativan) 4 mg IV Q15MIN PRN PRN Reason: CIWA-Ar >25 Oxycodone/Acetaminophen (Percocet 5/325) 1 tab PO Q6H PRN PRN Reason: Pain Last Admin: 03/21/16 06:32 Dose: 1 tab Simple Syrup (Simple Syrup) 15 ml FEEDTUBE PRN PRN PRN Reason: Hypoglycemia Simple Syrup (Simple Syrup) 30 ml FEEDTUBE PRN PRN PRN Reason: Hypoglycemia Sodium Bicarbonate (Sodium Bicarbonate) 325 mg FEEDTUBE PRN PRN PRN Reason: For Clogged Feeding Tube Thiamine HCl (Vitamin B-1) 100 mg FEEDTUBE QDAY PATTY Last Admin: 03/20/16 09:55 Dose: 100 mg Review of Systems ROS unobtainable: due to mental status Physical Examination Vital signs: Vital Signs Temp Pulse BP Pulse Ox 99 F 61 158/91 100 03/02/16 18:29 03/02/16 18:29 03/02/16 18:29 03/02/16 18:29 General appearance: other (stuporous) Eyes: icteric ENT: oropharynx dry Neck: supple Effort: mildly labored Ascultation: Right: diminished breath sounds (base), rales (base) Percussion: Bilateral: not dull Cardiovascular: regular rate and rhythm Gastrointestinal: normoactive bowel sounds, soft, non-tender Extremities: cool unable to assess Results - Laboratory Findings CBC and BMP: 03/21/16 04:45 03/21/16 04:45 ABG POC ABG pH 7.365 (7.35-7.45) 03/20/16 21:00 POC ABG pCO2 25.9 (35-45) L 03/20/16 21:00 POC ABG pO2 90 (80-105) 03/20/16 21:00 POC ABG HCO3 14.8 03/20/16 21:00 POC ABG Total CO2 16 03/20/16 21:00 POC ABG O2 Sat 97 03/20/16 21:00 PT/INR, D-dimer PT 13.0 Sec. (12.2-14.9) 03/12/16 09:50 INR 0.99 (0.87-1.13) 03/12/16 09:50 Abnormal lab findings: Abnormal Labs 03/03/16 03/03/16 03/04/16 15:47 15:47 05:14 WBC 19.2 H 23.1 H RBC 3.64 L Hgb Hct MCV RDW 16.5 H 16.6 H Plt Count 449 H Lymph % (Auto) [place] % (Auto) [place] # Eos # Seg Neutrophils % Seg Neuts % (Manual) Lymphocytes % (Manual) Monocytes % (Manual) Seg Neutrophils # Seg Neutrophils # Man Lymphocytes # (Manual) Monocytes # (Manual) Eosinophils # (Manual) APTT POC ABG pH POC ABG pCO2 Sodium Potassium 2.8 L* Chloride 96.5 L Carbon Dioxide 20 L BUN Creatinine 0.6 L Glucose 139 H POC Glucose Uric Acid Calcium Phosphorus Magnesium Total Bilirubin Ammonia Total Protein Albumin Crossmatch 03/04/16 03/04/16 03/04/16 05:14 09:01 19:38 WBC RBC Hgb Hct MCV RDW Plt Count Lymph % (Auto) [place] % (Auto) [place] # Eos # Seg Neutrophils % Seg Neuts % (Manual) Lymphocytes % (Manual) Monocytes % (Manual) Seg Neutrophils # Seg Neutrophils # Man Lymphocytes # (Manual) Monocytes # (Manual) Eosinophils # (Manual) APTT POC ABG pH POC ABG pCO2 Sodium 135 L Potassium 3.3 L Chloride 95.7 L Carbon Dioxide 19 L BUN Creatinine Glucose 130 H POC Glucose Uric Acid Calcium 8.0 L Phosphorus 1.4 L Magnesium 1.0 L Total Bilirubin 1.9 H Ammonia 95.0 H Total Protein Albumin 3.0 L Crossmatch 03/05/16 03/05/16 03/05/16 07:39 07:39 17:59 WBC 20.3 H RBC 3.50 L Hgb Hct MCV 98 H RDW 16.1 H Plt Count Lymph % (Auto) [place] % (Auto) [place] # Eos # Seg Neutrophils % Seg Neuts % (Manual) Lymphocytes % (Manual) Monocytes % (Manual) Seg Neutrophils # Seg Neutrophils # Man Lymphocytes # (Manual) Monocytes # (Manual) Eosinophils # (Manual) APTT POC ABG pH POC ABG pCO2 Sodium Potassium 2.7 L* 3.2 L Chloride Carbon Dioxide 19 L 18 L BUN Creatinine 1.4 H D 1.4 H Glucose 131 H POC Glucose Uric Acid Calcium 7.6 L 7.3 L Phosphorus 6.7 H D Magnesium 2.6 H Total Bilirubin 1.4 H Ammonia Total Protein 5.9 L Albumin 2.4 L Crossmatch 03/06/16 03/06/16 03/06/16 09:54 09:54 18:07 WBC 22.2 H RBC 3.19 L Hgb 9.9 L Hct MCV 98 H RDW 16.8 H Plt Count Lymph % (Auto) [place] % (Auto) [place] # Eos # Seg Neutrophils % Seg Neuts % (Manual) Lymphocytes % (Manual) Monocytes % (Manual) Seg Neutrophils # Seg Neutrophils # Man Lymphocytes # (Manual) Monocytes # (Manual) Eosinophils # (Manual) APTT POC ABG pH POC ABG pCO2 Sodium 150 H D Potassium 2.8 L* 2.8 L* Chloride 113.5 H Carbon Dioxide 16 L 16 L BUN Creatinine Glucose 137 H 106 H POC Glucose Uric Acid Calcium 7.4 L 7.7 L Phosphorus Magnesium Total Bilirubin Ammonia Total Protein Albumin Crossmatch 03/07/16 03/07/16 03/07/16 04:53 04:53 05:43 WBC 19.7 H RBC 3.20 L Hgb 9.9 L Hct MCV RDW 16.6 H Plt Count Lymph % (Auto) [place] % (Auto) [place] # Eos # Seg Neutrophils % Seg Neuts % (Manual) Lymphocytes % (Manual) Monocytes % (Manual) Seg Neutrophils # Seg Neutrophils # Man Lymphocytes # (Manual) Monocytes # (Manual) Eosinophils # (Manual) APTT POC ABG pH POC ABG pCO2 Sodium Potassium 2.9 L* Chloride 114.1 H Carbon Dioxide 19 L BUN Creatinine Glucose 140 H POC Glucose 143 H Uric Acid Calcium 7.8 L Phosphorus Magnesium Total Bilirubin Ammonia Total Protein Albumin Crossmatch 03/07/16 03/08/16 03/08/16 22:20 05:09 05:09 WBC 32.2 H RBC 3.18 L Hgb 10.0 L Hct MCV RDW 16.8 H Plt Count Lymph % (Auto) [place] % (Auto) [place] # Eos # Seg Neutrophils % Seg Neuts % (Manual) Lymphocytes % (Manual) Monocytes % (Manual) Seg Neutrophils # Seg Neutrophils # Man Lymphocytes # (Manual) Monocytes # (Manual) Eosinophils # (Manual) APTT POC ABG pH POC ABG pCO2 Sodium 155 H D Potassium 6.3 H* D 6.1 H* Chloride Carbon Dioxide 18 L BUN Creatinine 1.6 H D Glucose 213 H POC Glucose Uric Acid Calcium Phosphorus Magnesium Total Bilirubin Ammonia Total Protein Albumin Crossmatch 03/08/16 03/08/16 03/08/16 09:11 16:28 17:27 WBC RBC Hgb Hct MCV RDW Plt Count Lymph % (Auto) [place] % (Auto) [place] # Eos # Seg Neutrophils % Seg Neuts % (Manual) Lymphocytes % (Manual) Monocytes % (Manual) Seg Neutrophils # Seg Neutrophils # Man Lymphocytes # (Manual) Monocytes # (Manual) Eosinophils # (Manual) APTT POC ABG pH POC ABG pCO2 Sodium 156 H Potassium Chloride 126.2 H Carbon Dioxide 19 L BUN Creatinine 1.8 H Glucose 175 H POC Glucose 204 H 130 H Uric Acid Calcium Phosphorus Magnesium Total Bilirubin Ammonia Total Protein Albumin Crossmatch 03/08/16 03/09/16 03/09/16 22:06 05:47 08:00 WBC 29.9 H RBC 2.93 L Hgb 9.0 L Hct 28.4 L MCV RDW 17.4 H Plt Count Lymph % (Auto) [place] % (Auto) [place] # Eos # Seg Neutrophils % Seg Neuts % (Manual) Lymphocytes % (Manual) Monocytes % (Manual) Seg Neutrophils # Seg Neutrophils # Man Lymphocytes # (Manual) Monocytes # (Manual) Eosinophils # (Manual) APTT POC ABG pH POC ABG pCO2 Sodium Potassium Chloride Carbon Dioxide BUN Creatinine Glucose POC Glucose 192 H 206 H Uric Acid Calcium Phosphorus Magnesium Total Bilirubin Ammonia Total Protein Albumin Crossmatch 03/09/16 03/09/16 03/09/16 08:00 11:33 16:03 WBC RBC Hgb Hct MCV RDW Plt Count Lymph % (Auto) [place] % (Auto) [place] # Eos # Seg Neutrophils % Seg Neuts % (Manual) Lymphocytes % (Manual) Monocytes % (Manual) Seg Neutrophils # Seg Neutrophils # Man Lymphocytes # (Manual) Monocytes # (Manual) Eosinophils # (Manual) APTT POC ABG pH POC ABG pCO2 Sodium 154 H Potassium Chloride 123.0 H Carbon Dioxide 21 L BUN 18 H Creatinine 1.9 H Glucose 179 H POC Glucose 152 H 130 H Uric Acid Calcium 8.2 L Phosphorus Magnesium Total Bilirubin Ammonia Total Protein Albumin Crossmatch 03/10/16 03/10/16 03/10/16 06:16 11:53 17:22 WBC RBC Hgb Hct MCV RDW Plt Count Lymph % (Auto) [place] % (Auto) [place] # Eos # Seg Neutrophils % Seg Neuts % (Manual) Lymphocytes % (Manual) Monocytes % (Manual) Seg Neutrophils # Seg Neutrophils # Man Lymphocytes # (Manual) Monocytes # (Manual) Eosinophils # (Manual) APTT POC ABG pH POC ABG pCO2 Sodium Potassium Chloride Carbon Dioxide BUN Creatinine Glucose POC Glucose 170 H 141 H 159 H Uric Acid Calcium Phosphorus Magnesium Total Bilirubin Ammonia Total Protein Albumin Crossmatch 03/10/16 03/10/16 03/10/16 Unknown Unknown Unknown WBC 22.8 H RBC 2.70 L Hgb 8.7 L Hct 26.4 L MCV 98 H RDW 17.1 H Plt Count Lymph % (Auto) [place] % (Auto) [place] # Eos # Seg Neutrophils % Seg Neuts % (Manual) 78.0 H Lymphocytes % (Manual) 12.0 L Monocytes % (Manual) Seg Neutrophils # Seg Neutrophils # Man 17.8 H Lymphocytes # (Manual) Monocytes # (Manual) 1.1 H Eosinophils # (Manual) 0.9 H APTT POC ABG pH POC ABG pCO2 Sodium 147 H Potassium Chloride 115.0 H Carbon Dioxide 20 L BUN 22 H Creatinine 1.6 H Glucose 142 H POC Glucose Uric Acid Calcium 7.7 L Phosphorus Magnesium 1.5 L Total Bilirubin Ammonia Total Protein Albumin Crossmatch 03/11/16 03/11/16 03/11/16 00:11 00:50 06:15 WBC 24.3 H RBC 2.93 L Hgb 9.0 L Hct 28.1 L MCV RDW 17.4 H Plt Count Lymph % (Auto) [place] % (Auto) [place] # Eos # Seg Neutrophils % Seg Neuts % (Manual) 74.0 H Lymphocytes % (Manual) 10.0 L Monocytes % (Manual) 8.0 H Seg Neutrophils # Seg Neutrophils # Man 18.0 H Lymphocytes # (Manual) Monocytes # (Manual) 1.9 H Eosinophils # (Manual) 1.0 H APTT POC ABG pH POC ABG pCO2 Sodium Potassium Chloride Carbon Dioxide BUN Creatinine Glucose POC Glucose 143 H 136 H Uric Acid Calcium Phosphorus Magnesium Total Bilirubin Ammonia Total Protein Albumin Crossmatch 03/11/16 03/12/16 03/12/16 07:24 09:50 12:10 WBC RBC Hgb Hct MCV RDW Plt Count Lymph % (Auto) [place] % (Auto) [place] # Eos # Seg Neutrophils % Seg Neuts % (Manual) Lymphocytes % (Manual) Monocytes % (Manual) Seg Neutrophils # Seg Neutrophils # Man Lymphocytes # (Manual) Monocytes # (Manual) Eosinophils # (Manual) APTT 38.8 H POC ABG pH POC ABG pCO2 Sodium 135 L D Potassium Chloride Carbon Dioxide BUN 27 H Creatinine 1.8 H Glucose 136 H POC Glucose 111 H Uric Acid Calcium 7.5 L Phosphorus Magnesium 1.4 L Total Bilirubin Ammonia Total Protein Albumin Crossmatch 03/12/16 03/12/16 03/13/16 16:39 21:45 05:00 WBC 19.2 H RBC 2.68 L Hgb 8.5 L Hct 25.7 L MCV RDW 17.4 H Plt Count Lymph % (Auto) 9.3 L [place] % (Auto) 8.7 H [place] # 1.7 H Eos # 0.5 H Seg Neutrophils % 78.6 H Seg Neuts % (Manual) Lymphocytes % (Manual) Monocytes % (Manual) Seg Neutrophils # 15.1 H Seg Neutrophils # Man Lymphocytes # (Manual) Monocytes # (Manual) Eosinophils # (Manual) APTT POC ABG pH POC ABG pCO2 Sodium Potassium Chloride Carbon Dioxide BUN Creatinine Glucose POC Glucose 112 H 124 H Uric Acid Calcium Phosphorus Magnesium Total Bilirubin Ammonia Total Protein Albumin Crossmatch 03/13/16 03/13/16 03/14/16 05:00 16:19 06:21 WBC RBC Hgb Hct MCV RDW Plt Count Lymph % (Auto) [place] % (Auto) [place] # Eos # Seg Neutrophils % Seg Neuts % (Manual) Lymphocytes % (Manual) Monocytes % (Manual) Seg Neutrophils # Seg Neutrophils # Man Lymphocytes # (Manual) Monocytes # (Manual) Eosinophils # (Manual) APTT POC ABG pH POC ABG pCO2 Sodium Potassium Chloride Carbon Dioxide 20 L BUN 31 H Creatinine 2.1 H Glucose POC Glucose 61 L 125 H Uric Acid Calcium 7.8 L Phosphorus Magnesium 3.1 H Total Bilirubin Ammonia Total Protein Albumin Crossmatch 03/14/16 03/14/16 03/15/16 13:48 18:34 00:02 WBC RBC Hgb Hct MCV RDW Plt Count Lymph % (Auto) [place] % (Auto) [place] # Eos # Seg Neutrophils % Seg Neuts % (Manual) Lymphocytes % (Manual) Monocytes % (Manual) Seg Neutrophils # Seg Neutrophils # Man Lymphocytes # (Manual) Monocytes # (Manual) Eosinophils # (Manual) APTT POC ABG pH POC ABG pCO2 Sodium Potassium Chloride Carbon Dioxide BUN Creatinine Glucose POC Glucose 107 H 124 H 138 H Uric Acid Calcium Phosphorus Magnesium Total Bilirubin Ammonia Total Protein Albumin Crossmatch 03/15/16 03/15/16 03/15/16 06:40 06:40 07:23 WBC 13.5 H RBC 2.32 L Hgb 7.5 L Hct 22.3 L MCV RDW 17.5 H Plt Count Lymph % (Auto) 12.8 L [place] % (Auto) 8.2 H [place] # 1.1 H Eos # Seg Neutrophils % 75.5 H Seg Neuts % (Manual) Lymphocytes % (Manual) Monocytes % (Manual) Seg Neutrophils # 10.2 H Seg Neutrophils # Man Lymphocytes # (Manual) Monocytes # (Manual) Eosinophils # (Manual) APTT POC ABG pH POC ABG pCO2 Sodium Potassium Chloride 110.8 H Carbon Dioxide 16 L BUN 28 H Creatinine 2.4 H Glucose POC Glucose 112 H Uric Acid Calcium 7.0 L Phosphorus Magnesium Total Bilirubin Ammonia Total Protein Albumin Crossmatch 03/15/16 03/15/16 03/15/16 11:46 16:32 20:52 WBC RBC Hgb Hct MCV RDW Plt Count Lymph % (Auto) [place] % (Auto) [place] # Eos # Seg Neutrophils % Seg Neuts % (Manual) Lymphocytes % (Manual) Monocytes % (Manual) Seg Neutrophils # Seg Neutrophils # Man Lymphocytes # (Manual) Monocytes # (Manual) Eosinophils # (Manual) APTT POC ABG pH POC ABG pCO2 Sodium Potassium Chloride Carbon Dioxide BUN Creatinine Glucose POC Glucose 138 H 127 H 118 H Uric Acid Calcium Phosphorus Magnesium Total Bilirubin Ammonia Total Protein Albumin Crossmatch 03/16/16 03/16/16 03/16/16 06:01 06:01 06:24 WBC 27.8 H RBC 2.41 L Hgb 7.4 L Hct 23.2 L MCV RDW 18.2 H Plt Count Lymph % (Auto) [place] % (Auto) [place] # Eos # Seg Neutrophils % Seg Neuts % (Manual) 91.5 H Lymphocytes % (Manual) 2.5 L Monocytes % (Manual) Seg Neutrophils # Seg Neutrophils # Man 25.4 H Lymphocytes # (Manual) 0.7 L Monocytes # (Manual) Eosinophils # (Manual) APTT POC ABG pH POC ABG pCO2 Sodium Potassium Chloride 113.0 H Carbon Dioxide 15 L BUN 30 H Creatinine 2.6 H Glucose 130 H POC Glucose 159 H Uric Acid Calcium 6.8 L Phosphorus Magnesium Total Bilirubin Ammonia Total Protein Albumin Crossmatch 03/16/16 03/16/16 03/16/16 11:34 16:37 23:46 WBC RBC Hgb Hct MCV RDW Plt Count Lymph % (Auto) [place] % (Auto) [place] # Eos # Seg Neutrophils % Seg Neuts % (Manual) Lymphocytes % (Manual) Monocytes % (Manual) Seg Neutrophils # Seg Neutrophils # Man Lymphocytes # (Manual) Monocytes # (Manual) Eosinophils # (Manual) APTT POC ABG pH POC ABG pCO2 Sodium Potassium Chloride Carbon Dioxide BUN Creatinine Glucose POC Glucose 164 H 109 H 114 H Uric Acid Calcium Phosphorus Magnesium Total Bilirubin Ammonia Total Protein Albumin Crossmatch 03/17/16 03/17/16 03/17/16 11:33 22:11 23:50 WBC RBC Hgb Hct MCV RDW Plt Count Lymph % (Auto) [place] % (Auto) [place] # Eos # Seg Neutrophils % Seg Neuts % (Manual) Lymphocytes % (Manual) Monocytes % (Manual) Seg Neutrophils # Seg Neutrophils # Man Lymphocytes # (Manual) Monocytes # (Manual) Eosinophils # (Manual) APTT POC ABG pH 7.319 L POC ABG pCO2 28.6 L Sodium Potassium Chloride 111.6 H Carbon Dioxide 16 L BUN 34 H Creatinine 2.7 H Glucose 115 H POC Glucose 117 H Uric Acid 8.4 H Calcium 7.4 L Phosphorus Magnesium Total Bilirubin Ammonia Total Protein Albumin Crossmatch 03/17/16 03/18/16 03/19/16 23:50 11:11 05:20 WBC 18.2 H RBC 2.11 L Hgb 6.7 L Hct 20.1 L MCV RDW 17.5 H Plt Count Lymph % (Auto) [place] % (Auto) [place] # Eos # Seg Neutrophils % Seg Neuts % (Manual) Lymphocytes % (Manual) Monocytes % (Manual) Seg Neutrophils # Seg Neutrophils # Man Lymphocytes # (Manual) Monocytes # (Manual) Eosinophils # (Manual) APTT POC ABG pH 7.320 L POC ABG pCO2 29.9 L Sodium Potassium Chloride Carbon Dioxide BUN Creatinine Glucose POC Glucose 124 H Uric Acid Calcium Phosphorus Magnesium Total Bilirubin Ammonia Total Protein Albumin Crossmatch 03/19/16 03/19/1617 05:20 06:11 09:30 WBC RBC Hgb Hct MCV RDW Plt Count Lymph % (Auto) [place] % (Auto) [place] # Eos # Seg Neutrophils % Seg Neuts % (Manual) Lymphocytes % (Manual) Monocytes % (Manual) Seg Neutrophils # Seg Neutrophils # Man Lymphocytes # (Manual) Monocytes # (Manual) Eosinophils # (Manual) APTT POC ABG pH POC ABG pCO2 Sodium Potassium Chloride 114.1 H Carbon Dioxide 16 L BUN 32 H Creatinine 2.2 H Glucose POC Glucose 63 L Uric Acid Calcium 7.7 L Phosphorus Magnesium Total Bilirubin Ammonia Total Protein Albumin Crossmatch See Detail 03/19/16 03/19/16 03/19/16 12:14 16:30 23:57 WBC RBC Hgb Hct MCV RDW Plt Count Lymph % (Auto) [place] % (Auto) [place] # Eos # Seg Neutrophils % Seg Neuts % (Manual) Lymphocytes % (Manual) Monocytes % (Manual) Seg Neutrophils # Seg Neutrophils # Man Lymphocytes # (Manual) Monocytes # (Manual) Eosinophils # (Manual) APTT POC ABG pH POC ABG pCO2 Sodium Potassium Chloride Carbon Dioxide BUN Creatinine Glucose POC Glucose 138 H 133 H 190 H Uric Acid Calcium Phosphorus Magnesium Total Bilirubin Ammonia Total Protein Albumin Crossmatch 03/20/16 03/20/16 03/20/16 06:38 11:52 15:36 WBC RBC Hgb Hct MCV RDW Plt Count Lymph % (Auto) [place] % (Auto) [place] # Eos # Seg Neutrophils % Seg Neuts % (Manual) Lymphocytes % (Manual) Monocytes % (Manual) Seg Neutrophils # Seg Neutrophils # Man Lymphocytes # (Manual) Monocytes # (Manual) Eosinophils # (Manual) APTT POC ABG pH POC ABG pCO2 Sodium Potassium Chloride Carbon Dioxide BUN Creatinine Glucose POC Glucose 163 H 138 H 151 H Uric Acid Calcium Phosphorus Magnesium Total Bilirubin Ammonia Total Protein Albumin Crossmatch 03/20/16 03/20/16 03/20/16 21:00 23:55 Unknown WBC 30.1 H RBC 3.23 L Hgb Hct 29.6 L D MCV RDW 16.2 H Plt Count Lymph % (Auto) [place] % (Auto) [place] # Eos # Seg Neutrophils % Seg Neuts % (Manual) Lymphocytes % (Manual) Monocytes % (Manual) Seg Neutrophils # Seg Neutrophils # Man Lymphocytes # (Manual) Monocytes # (Manual) Eosinophils # (Manual) APTT POC ABG pH POC ABG pCO2 25.9 L Sodium Potassium Chloride Carbon Dioxide BUN Creatinine Glucose POC Glucose 167 H Uric Acid Calcium Phosphorus Magnesium Total Bilirubin Ammonia Total Protein Albumin Crossmatch 03/20/16 03/21/16 03/21/16 Unknown 04:45 04:45 WBC 28.0 H RBC 3.37 L Hgb Hct MCV RDW 16.4 H Plt Count Lymph % (Auto) [place] % (Auto) [place] # Eos # Seg Neutrophils % Seg Neuts % (Manual) Lymphocytes % (Manual) Monocytes % (Manual) Seg Neutrophils # Seg Neutrophils # Man Lymphocytes # (Manual) Monocytes # (Manual) Eosinophils # (Manual) APTT POC ABG pH POC ABG pCO2 Sodium Potassium 5.1 H Chloride 110.4 H Carbon Dioxide 14 L BUN 34 H 37 H Creatinine 2.9 H 3.2 H Glucose 131 H 124 H POC Glucose Uric Acid Calcium 7.5 L 7.1 L Phosphorus 4.6 H Magnesium 1.6 L Total Bilirubin Ammonia Total Protein Albumin Crossmatch 03/21/16 05:52 WBC RBC Hgb Hct MCV RDW Plt Count Lymph % (Auto) [place] % (Auto) [place] # Eos # Seg Neutrophils % Seg Neuts % (Manual) Lymphocytes % (Manual) Monocytes % (Manual) Seg Neutrophils # Seg Neutrophils # Man Lymphocytes # (Manual) Monocytes # (Manual) Eosinophils # (Manual) APTT POC ABG pH POC ABG pCO2 Sodium Potassium Chloride Carbon Dioxide BUN Creatinine Glucose POC Glucose 136 H Uric Acid Calcium Phosphorus Magnesium Total Bilirubin Ammonia Total Protein Albumin Crossmatch - Diagnostic Findings Chest x-ray: image reviewed (right sided pleural effusion) Assessment and Plan 60 y/o female with renal failure, electrolyte imbalance and acute respiratory failure with bilateral pleural effusions right greater than left and right sided hydronephrosis 1. Spoke with [facility], they will address hydronephrosis 2. Pleural effusion, especially the right sided effusion likely secondary to hydronephrosis and volume overload 3. Has no accurate urine output recorded, no carrillo, will ask renal about this 4. Per , very heavy smoker and smoked until she came to hospital. Will add PRN nebs. WEan FiO2 down for sats >88% 5. Will discontinue all mind altering meds. If patient is truly agitated would suggest haldol PRN. Will check EKG to make sure that QTc is normal 6. CHronically elevated white count. No acute signs of infection 7. Will also repeat ABG today Overall prognosis appears to guarded. Mental status does not appear to be any worse based on the notes and help from the . She has had an extensive work up including MRI' and LP. Neurology has seen at least twice during this hospital stay.
--- NOTE | 2016-03-21 12:26 | Progress Note ---
Assessment and Plan Impression: Acute kidney injury secondary to prerenal azotemia vs obstructive uropathy --Renal u/s: right hydronephrosis Acute hypoxic respiratory failure Ecoli UTI Hyperkalemia, mild Metabolic acidosis Anemia Leukocytosis Plan: Patient with worsening renal function and electrolytes IVF for hydration - bicarb gtt Gonzalez catheter insertion Abd/Pelvis CT ordered by primary team Empiric abx per primary team Monitor SCr and volume status closely Strict I/O Avoid potential nephrotoxins Subjective Date of service: 03/21/16 Principal diagnosis: AMS/dysphagia/malnutrition Interval history: No acute events overnight. Objective - Vital Signs Vital signs: Vital Signs - 12hr 03/21/16 03/21/16 03/21/16 01:00 01:27 02:00 Temperature Pulse Rate 83 82 Pulse Rate [ Anterior Bilateral Throughout] Pulse Rate [ Apical] Pulse Rate [ From Monitor] Respiratory 17 21 Rate Respiratory Rate [Anterior Bilateral Throughout] Respiratory 21 Rate [Bilateral Shoulder] Blood Pressure 96/60 116/72 O2 Sat by Pulse 100 100 Oximetry 03/21/16 03/21/16 03/21/16 03:00 04:00 05:00 Temperature 99.3 F Pulse Rate 81 81 82 Pulse Rate [ Anterior Bilateral Throughout] Pulse Rate [ Apical] Pulse Rate [ 89 From Monitor] Respiratory 19 17 18 Rate Respiratory Rate [Anterior Bilateral Throughout] Respiratory Rate [Bilateral Shoulder] Blood Pressure 114/63 105/68 110/70 O2 Sat by Pulse 100 99 100 Oximetry 03/21/16 03/21/16 03/21/16 06:00 06:32 07:00 Temperature Pulse Rate 79 81 Pulse Rate [ Anterior Bilateral Throughout] Pulse Rate [ Apical] Pulse Rate [ From Monitor] Respiratory 15 17 16 Rate Respiratory Rate [Anterior Bilateral Throughout] Respiratory Rate [Bilateral Shoulder] Blood Pressure 112/70 103/69 O2 Sat by Pulse 100 Oximetry 03/21/16 03/21/16 03/21/16 08:00 08:30 08:33 Temperature 98.8 F Pulse Rate 81 Pulse Rate [ Anterior Bilateral Throughout] Pulse Rate [ 82 Apical] Pulse Rate [ 83 From Monitor] Respiratory 22 18 Rate Respiratory Rate [Anterior Bilateral Throughout] Respiratory Rate [Bilateral Shoulder] Blood Pressure 102/78 O2 Sat by Pulse 99 100 100 Oximetry 03/21/16 03/21/16 03/21/16 08:37 08:47 08:48 Temperature Pulse Rate 81 Pulse Rate [ 78 80 Anterior Bilateral Throughout] Pulse Rate [ Apical] Pulse Rate [ From Monitor] Respiratory 17 Rate Respiratory 20 18 Rate [Anterior Bilateral Throughout] Respiratory Rate [Bilateral Shoulder] Blood Pressure 102/78 O2 Sat by Pulse 100 Oximetry 03/21/16 03/21/16 03/21/16 09:00 09:50 10:00 Temperature Pulse Rate 84 79 80 Pulse Rate [ Anterior Bilateral Throughout] Pulse Rate [ Apical] Pulse Rate [ From Monitor] Respiratory 18 18 17 Rate Respiratory Rate [Anterior Bilateral Throughout] Respiratory Rate [Bilateral Shoulder] Blood Pressure 113/74 113/74 104/70 O2 Sat by Pulse 100 100 Oximetry 03/21/16 03/21/16 10:22 11:00 Temperature Pulse Rate 81 87 Pulse Rate [ Anterior Bilateral Throughout] Pulse Rate [ Apical] Pulse Rate [ From Monitor] Respiratory 22 Rate Respiratory Rate [Anterior Bilateral Throughout] Respiratory Rate [Bilateral Shoulder] Blood Pressure 104/70 124/78 O2 Sat by Pulse 99 Oximetry - General Appearance General appearance: other (lethargic) EENT: ATNC Respiratory: Present: Decreased Breath Sounds Cardiology: regular, S1S2 Gastrointestinal: normal, no tenderness, no distended Integumentary: no rash Musculoskeletal: other (no edema) - Lab 03/22/16 04:30 03/22/16 04:30 Most recent lab results Calcium 7.1 mg/dL (8.4-10.2) L 03/21/16 04:45 Phosphorus 4.6 mg/dL (2.5-4.5) H 03/21/16 04:45 Magnesium 1.6 mg/dL (1.7-2.3) L 03/21/16 04:45
--- NOTE | 2016-03-21 16:54 | Cat Scan Report ---
FINAL REPORT EXAM: CT ABDOMEN PELVIS WO CON HISTORY: hydronephrosis on right, acute kidney injury TECHNIQUE: Unenhanced CT of the abdomen and pelvis at 2.5 millimeter axial increments. Coronal and sagittal reconstruction was also performed. Contrast: No IV given. Gastroview was given oral. PRIORS: None. FINDINGS: There is bilateral hydronephrosis present of uncertain etiology. The urinary bladder is collapsed containing a Gonzalez catheter balloon. There is no evidence for renal calculi . No evidence for ureteral or bladder calculus is seen. No evidence for renal or bladder mass is noted. There is moderate ascites present throughout the abdomen and pelvis. The ascites also extends into the left inguinal canal. Otherwise, within the limits of a noncontrast exam, the liver, spleen, gallbladder, and adrenal glands are unremarkable. The pancreas is thin. No evidence for retroperitoneal or pelvic lymphadenopathy is seen. The small bowel loops have normal caliber. No loculated fluid collection, inflammatory change, or free air is seen within the abdomen or pelvis. Mild calcification of a normal sized aorta is seen. Within the pelvis, the uterus is not identified, likely due to previous hysterectomy. Images through the upper abdomen include the lung bases which demonstrate moderate bilateral pleural effusions and bibasilar compressive atelectasis, right worse than left. Bony structures show no focal abnormalities. Bilateral facet joint degenerative changes from L4 through S1 are noted with severe disc space narrowing L5-S1 identified. There is generalized anasarca in the subcutaneous soft tissues. IMPRESSION: 1. Bilateral hydronephrosis of uncertain etiology 2. Moderate ascites and extensive anasarca 3. Bilateral pleural effusions and bibasilar compressive atelectasis 4. Pancreas is thin which can be associated atrophy.
[2016-03-21] MEDS: TYLENOL PO PRN (23:00)
[2016-03-22 05:07] LABS: Hemoglobin 10.3 gm/dl (10.1-14.3); Mean Corpuscular HGB Conc 33 % (30-34); Mean Corpuscular Hemoglobin 31 pg (28-32); Mean Corpuscular Volume 92 fl (79-97); Platelet Count 267 K/mm3 (140-440); Red Blood Count 3.38 M/mm3 (3.65-5.03); Red Cell Distribution Width 16.1 % (13.2-15.2)
[2016-03-22 05:08] LABS: White Blood Count 23.2 K/mm3 (4.5-11.0)
[2016-03-22 05:21] LABS: Calcium 6.9 mg/dL (8.4-10.2); Chloride 104.6 mmol/L (98-107)
--- NOTE | 2016-03-22 07:11 | Consultation ---
TIME OF SERVICE: Around 9:45 in the morning. CONSULTATION REQUESTED BY: Hospital Medicine. REASON FOR CONSULTATION: Management of renal failure in a patient, who is admitted with acute renal failure, tried to contact Nahid Gomes on [phone], was not successful, number did not go through. HISTORY OF PRESENT ILLNESS: The patient is a 60-year-old -[place] female, who has been admitted here since 03/02/2016. The patient was brought in with reduced appetite, increased lethargy and feeling weak for nearly about a month. The patient was also confused upon arrival and was also taking Bactrim for unclear reasons. Upon arrival, her creatinine was 0.5. White cell count was 16,000 with a potassium of 3.1. The patient was also noted to have increased specific gravity of 1.[address] scan showed no evidence of any acute changes. The patient was admitted with dehydration at that time. During this admission, the patient has continued to have poor p.o. intake and has also been noted to have persistent leukocytosis and gram-negative pyuria for which she has been followed by Infectious Disease. She was also hypokalemic and was noted to be on thiazide. On the day of evaluation, the patient was encephalopathic, she was not able to contribute any history making. It has been noted that the patient was taking lisinopril, hydrochlorothiazide and ibuprofen as well as an outpatient medicine. PAST MEDICAL HISTORY: Significant for; 1. Hypertension. 2. Osteoarthritis. 3. Nicotine dependence. 4. Possible depression. 5. Neuropathy. 6. NSAID use. CURRENT ALLERGIES: None. HOME MEDICATIONS: Oxycodone, fluoxetine, gabapentin, ibuprofen, lisinopril, naproxen, Bactrim, Symbicort, hydroxyzine, and trazodone. SOCIAL HISTORY: Unable to obtain from chart. . No history of any alcohol, drug, or tobacco use. FAMILY HISTORY: Essentially positive for hypertension. REVIEW OF SYSTEMS: Essentially unable to obtain. Very poor appetite, encephalopathic, unable to contribute in history making, and was congested last night for which I did introduce her IV fluid. Complete review of systems could not be obtained due to altered mental status. PHYSICAL EXAMINATION: GENERAL: The patient is a 60-year-old -[place] female, who appears to be sick. VITAL SIGNS: Revealed blood pressure of 158/91, pulse rate is about 61, respiratory rate 18, temperature 98, pulse ox is 100%. HEENT: Normocephalic and atraumatic. Extraocular movements are intact. Oral mucosa is dry. NECK: Supple without thyromegaly or JVD. CHEST: Essentially clear to auscultation anteriorly and posteriorly. The patient does have bilateral basilar crackles. HEART: Regular rate and rhythm. S1, S2 heard. No S3, S4. ABDOMEN: Soft, nontender. Dry skin. No renal bruits. No CVA tenderness. EXTREMITIES: Edema approximately 1+, dry skin. Decreased skin turgor. Third spacing of fluid. ENDOCRINE: Thyroid not enlarged. PSYCHIATRIC: The patient is not agitated, appears to be encephalopathic. LABORATORIES AND X-RAYS: As of 03/16, [place] count [place] [address], hemoglobin 7.4, hematocrit 23.2, platelet count 183,000. Sodium 139, potassium 4.9, chloride 111, bicarbonate 16, BUN 34, creatinine is 2.7, calcium 7.4, phosphorus is 2.5, magnesium is 1.9. ASSESSMENT AND PLAN: 1. Acute renal failure in a patient, who is a 60-year-old, who has been admitted with multiple health issues, currently has been noted to have worsening renal function. In the outpatient setting, the patient was taking multiple medications, which can contribute to renal failure including ibuprofen, lisinopril, hydrochlorothiazide, naproxen as well as Bactrim. Currently, she is not doing so well. She still continues to be acidotic, to some degree she appears to have third spacing of some fluid and also severely anemic. At this point, her renal function needs to be monitored closely, correct electrolyte imbalance and follow up. 2. Severe anemia. The patient is currently being followed by primary team, she may require at least one unit of packed red blood cell transfusion to reduce the third spacing and it may overall help as well. 3. Hypertension. Monitor. Goal blood pressure, keep systolic of around 140 to 150 to maintain adequate renal perfusion. 4. Escherichia coli urinary tract infection. The patient was followed by Infectious Disease up until recently. 5. The patient does have right-sided hydronephrosis on ultrasonogram, which makes urinary tract infection complicated. We will recommend placing a Gonzalez catheter and also would recommend Urology consultation. 6. Severe anemia and leukocytosis. Infectious Disease has signed off. I will recommend at this point that Hematology consultation should be obtained. 7. Ultrasonogram showed evidence of chronic kidney disease changes, which is expected with her age and many comorbidities that she have. 8. Hypernatremia, appears to be improving. Once the PEG tube is placed, can be considered for free water. 9. The patient is a full code, but she is very frail appearing female with multiple health issues and overall prognosis appears to be very poor. 10. Tried to contact [phone] is listed as a contact. No one available, number did not go through either. PLAN OF CARE: At this time, the patient will need to be monitored closely. We should not give her any form of AGATA inhibitors, angiotensin receptor yuni, any form of nonsteroidal medication, reduced IV fluids correct metabolic acidosis. Obtain labs pertinent to her renal failure. Avoid too much of sedation. She is going for PEG tube placement. Monitor renal function closely. If continues to deteriorate, she may require renal replacement therapy for correction of metabolic acidosis, renal failure. In the meantime, please consider Urology consultation as she does appear to have hydronephrosis, and I believe that the urinary tract infection is complicated and that could be partly responsible for her persistent leukocytosis. We will continue to follow and make recommendations from renal standpoint. JOB# [id number] CHUY/CRISTIAN SIMMONS
[2016-03-22] MEDS: HEPARIN SUB-Q SCH ×3 (07:21→21:45)
[2016-03-22] MEDS: NOVOLOG SUB-Q SCH ×4 (07:23→18:06)
[2016-03-22] MEDS: BROVANA NEBU IH SCH ×2 (07:41→20:39)
[2016-03-22] MEDS: PULMICORT IH SCH ×2 (07:41→20:38)
--- NOTE | 2016-03-22 08:43 | Progress Note ---
Assessment and Plan Assessment and plan: Acute Metabolic encephalopathy. Patient lethargic, confused Workup so far negative, MRI no acute intracranial abnormality noted Lumbar puncture and CSF analysis negative Acute respiratory failure. On supplemental Oxygen. Her oxygen saturation is 100 % on 2.5 L/m oxygen nasal cannula. Pulm following. Anemia due to chronic disease. Hemoglobin now 10.5 after 1 Unit PRBC Dysphagia, secondary to metabolic encephalopathy. PEG tube placed. Tube feed started Acute kidney injury,much improved. Continue 1.5 today from 3.2 yesterday. Nephrology following. Gonzalez catheter, strict I/O Hydronephrosis bilat.mCT Abd did not show any etiology. Consult Urology. Leukocytosis improving. No fever. WBC 23 today. Continue to monitor off antibiotics as recommended by ID. --Positive urine cultures for Escherichia coli almost 3 weeks ago. Completed antibiotics. ID was following but just signed off. Recommend monitor off antibiotics Hyperkalemia. This is now resolved. --Hypernatremia. Resolved --Hypertension. Well controlled on Atenolol, lisinopril, clonidine prn. --Full code status --DVT prophylaxis with heparin Disposition. Discussed with Case management.Plan is for SNF placement when medically stable. I have also had several discussions with at bedside. History Interval history: Patient transferred to ICU for closer monitoring since she is worsening Confusion still present, still agitated on and off, generalized weakness, Hospitalist Physical - Physical exam Narrative exam: Narrative exam: Gen: Not in acute distress, ill looking, has Ventimask on HEENT: Atraumatic, Neck :supple, no JVD Lungs: Lungs clear to auscultation bilaterally, no crackles or wheeze Heart: S1 and S2 regular, no murmurs, rubs or gallop Abdomen:soft, non-tender, non-distended, normal bowel sounds, PEG tube Ext: No edema, no clubbing or cyanosis Neuro: Lethargic, confused. moves all ext, does not follow commands - Constitutional Vitals: Temp Pulse Resp BP Pulse Ox 98.8 F 90 19 125/47 100 03/22/16 08:00 03/22/16 07:54 03/22/16 07:54 03/22/16 06:00 03/22/16 07:39 General appearance: Present: no acute distress, well-nourished Results - Labs CBC & Chem 7: 03/23/16 07:00 03/23/16 04:00 Labs: Laboratory Last Values WBC 23.2 K/mm3 (4.5-11.0) H 03/22/16 04:30 RBC 3.38 M/mm3 (3.65-5.03) L 03/22/16 04:30 Hgb 10.3 gm/dl (10.1-14.3) 03/22/16 04:30 Hct 31.0 % (30.3-42.9) 03/22/16 04:30 MCV 92 fl (79-97) 03/22/16 04:30 MCH 31 pg (28-32) 03/22/16 04:30 MCHC 33 % (30-34) 03/22/16 04:30 RDW 16.1 % (13.2-15.2) H 03/22/16 04:30 Plt Count 267 K/mm3 (140-440) 03/22/16 04:30 Lymph % (Auto) 12.8 % (13.4-35.0) L 03/15/16 06:40 [place] % (Auto) 8.2 % (0.0-7.3) H 03/15/16 06:40 Eos % (Auto) 3.0 % (0.0-4.3) 03/15/16 06:40 Baso % (Auto) 0.5 % (0.0-1.8) 03/15/16 06:40 Lymph # 1.7 K/mm3 (1.2-5.4) 03/15/16 06:40 [place] # 1.1 K/mm3 (0.0-0.8) H 03/15/16 06:40 Eos # 0.4 K/mm3 (0.0-0.4) 03/15/16 06:40 Baso # 0.1 K/mm3 (0.0-0.1) 03/15/16 06:40 Add Manual Diff Complete 03/16/16 06:01 Total Counted 200 03/16/16 06:01 Seg Neutrophils % 75.5 % (40.0-70.0) H 03/15/16 06:40 Seg Neuts % (Manual) 91.5 % (40.0-70.0) H 03/16/16 06:01 Band Neutrophils % 4.0 % 01/17/17 06:01 Lymphocytes % (Manual) 2.5 % (13.4-35.0) L 03/16/16 06:01 Reactive Lymphs % (Man) 0 % 03/16/16 06:01 Monocytes % (Manual) 1.5 % (0.0-7.3) 03/16/16 06:01 Eosinophils % (Manual) 0 % (0.0-4.3) 03/16/16 06:01 Basophils % (Manual) 0.5 % (0.0-1.8) 03/16/16 06:01 Metamyelocytes % 0 % 03/16/16 06:01 Myelocytes % 0 % 03/16/16 06:01 Promyelocytes % 0 % 03/16/16 06:01 Blast Cells % 0 % 03/16/16 06:01 Nucleated RBC % Not Reportable 03/16/16 06:01 Seg Neutrophils # 10.2 K/mm3 (1.8-7.7) H 03/15/16 06:40 Seg Neutrophils # Man 25.4 K/mm3 (1.8-7.7) H 03/16/16 06:01 Band Neutrophils # 1.1 K/mm3 03/16/16 06:01 Lymphocytes # (Manual) 0.7 K/mm3 (1.2-5.4) L 03/16/16 06:01 Abs React Lymphs (Man) 0.0 K/mm3 03/16/16 06:01 Monocytes # (Manual) 0.4 K/mm3 (0.0-0.8) 03/16/16 06:01 Eosinophils # (Manual) 0.0 K/mm3 (0.0-0.4) 03/16/16 06:01 Basophils # (Manual) 0.1 K/mm3 (0.0-0.1) 03/16/16 06:01 Metamyelocytes # 0.0 K/mm3 03/16/16 06:01 Myelocytes # 0.0 K/mm3 03/16/16 06:01 Promyelocytes # 0.0 K/mm3 03/16/16 06:01 Blast Cells # 0.0 K/mm3 03/16/16 06:01 WBC Morphology Not Reportable 03/16/16 06:01 Hypersegmented Neuts Not Reportable 03/16/16 06:01 Hyposegmented Neuts Not Reportable 03/16/16 06:01 Hypogranular Neuts Not Reportable 03/16/16 06:01 Smudge Cells Not Reportable 03/16/16 06:01 Toxic Granulation Not Reportable 03/16/16 06:01 Toxic Vacuolation Not Reportable 03/16/16 06:01 Dohle Bodies Not Reportable 03/16/16 06:01 Pel[place]-Huet Anomaly Not Reportable 03/16/16 06:01 Betty Rods Not Reportable 03/16/16 06:01 Platelet Estimate Appears normal 03/16/16 06:01 Clumped Platelets Not Reportable 03/16/16 06:01 Plt Clumps, EDTA Not Reportable 03/16/16 06:01 Large Platelets Not Reportable 03/16/16 06:01 Giant Platelets Not Reportable 03/16/16 06:01 Platelet Satelliting Not Reportable 03/16/16 06:01 Plt Morphology Comment Not Reportable 03/16/16 06:01 RBC Morphology Not Reportable 03/16/16 06:01 Dimorphic RBCs Not Reportable 03/16/16 06:01 Polychromasia Few 03/16/16 06:01 Hypochromasia Not Reportable 03/16/16 06:01 Poikilocytosis Not Reportable 03/16/16 06:01 Anisocytosis 1+ 03/16/16 06:01 Microcytosis Not Reportable 03/16/16 06:01 Macrocytosis Not Reportable 03/16/16 06:01 Spherocytes Not Reportable 03/16/16 06:01 Pappenheimer Bodies Not Reportable 03/16/16 06:01 Sickle Cells Not Reportable 03/16/16 06:01 Target Cells Few 03/16/16 06:01 Tear Drop Cells Rare 03/16/16 06:01 Ovalocytes Not Reportable 03/16/16 06:01 Helmet Cells Not Reportable 03/16/16 06:01 [place] Bodies Not Reportable 03/16/16 06:01 [place] Rings Not Reportable 03/16/16 06:01 [place] Cells Not Reportable 03/16/16 06:01 Bite Cells Not Reportable 03/16/16 06:01 Crenated Cell Not Reportable 03/16/16 06:01 Elliptocytes Not Reportable 03/16/16 06:01 Acanthocytes (Spur) Not Reportable 03/16/16 06:01 Rouleaux Not Reportable 03/16/16 06:01 Hemoglobin C Crystals Not Reportable 03/16/16 06:01 Schistocytes Not Reportable 03/16/16 06:01 Malaria parasites Not Reportable 03/16/16 06:01 Matthew Bodies Not Reportable 03/16/16 06:01 Hem Pathologist Commnt No 03/16/16 06:01 PT 13.0 Sec. (12.2-14.9) 03/12/16 09:50 INR 0.99 (0.87-1.13) 03/12/16 09:50 APTT 38.8 Sec. (24.2-36.6) H 03/12/16 09:50 POC ABG pH 7.365 (7.35-7.45) 03/20/16 21:00 POC ABG pCO2 25.9 (35-45) L 03/20/16 21:00 POC ABG pO2 90 (80-105) 03/20/16 21:00 POC ABG HCO3 14.8 03/20/16 21:00 POC ABG Total CO2 16 03/20/16 21:00 POC ABG O2 Sat 97 03/20/16 21:00 POC ABG Base Excess -11 03/20/16 21:00 FiO2 31 % 03/20/16 21:00 Sodium 145 mmol/L (137-145) 03/22/16 04:30 Potassium 3.0 mmol/L (3.6-5.0) L D 03/22/16 04:30 Chloride 104.6 mmol/L (98-107) 03/22/16 04:30 Carbon Dioxide 27 mmol/L (22-30) 03/22/16 04:30 Anion Gap 16 mmol/L 03/22/16 04:30 BUN 27 mg/dL (7-17) H 03/22/16 04:30 Creatinine 1.5 mg/dL (0.7-1.2) H D 03/22/16 04:30 Estimated GFR 43 ml/min 03/22/16 04:30 BUN/Creatinine Ratio 18.00 % 03/22/16 04:30 Glucose 124 mg/dL (65-100) H 03/22/16 04:30 POC Glucose 120 (70-105) H 03/22/16 06:17 Osmolality 301 Mosm/kg 03/17/16 23:50 Lactic Acid 1.7 mmol/L (0.7-2.0) 03/03/16 02:43 Uric Acid 8.4 mg/dL (3.5-7.6) H 03/17/16 23:50 Calcium 6.9 mg/dL (8.4-10.2) L 03/22/16 04:30 Ionized Calcium 4.9 mg/dL (4.8-5.6) 03/17/16 20:53 Phosphorus 4.6 mg/dL (2.5-4.5) H 03/21/16 04:45 Magnesium 1.6 mg/dL (1.7-2.3) L 03/21/16 04:45 Total Bilirubin 1.4 mg/dL (0.1-1.2) H 03/05/16 07:39 AST 38 units/L (5-40) 03/05/16 07:39 ALT 17 units/L (7-56) 03/05/16 07:39 Alkaline Phosphatase 105 units/L (35-129) 03/05/16 07:39 Ammonia 55.0 umol/L (25-60) 03/07/16 04:53 Total Creatine Kinase 42 units/L (30-135) 03/02/16 18:35 CK-MB (CK-2) < 1.0 ng/mL (0.0-4.0) 03/02/16 18:35 CK-MB (CK-2) Rel Index 2.3 (0-4) 03/02/16 18:35 Troponin T < 0.010 ng/mL (0.00-0.029) 03/02/16 18:35 Total Protein 5.9 g/dL (6.3-8.2) L 03/05/16 07:39 Albumin 2.4 g/dL (3.9-5) L 03/05/16 07:39 Albumin/Globulin Ratio 0.7 % 03/05/16 07:39 TSH 0.427 mlU/mL (0.270-4.200) 03/04/16 19:38 Free T4 1.36 ng/dL (0.76-1.46) 03/02/16 18:35 Urine Color Vera (Yellow) 03/02/16 20:44 Urine Turbidity Clear (Clear) 03/02/16 20:44 Urine pH 7.0 (5.0-7.0) 03/02/16 20:[address] [place] 1.023 (1.003-1.030) 03/02/16 20:44 Urine Protein 30 mg/dl mg/dL (Negative) 03/02/16 20:44 Urine Glucose (UA) Neg mg/dL (Negative) 03/02/16 20:44 Urine Ketones 20 mg/dL (Negative) 03/02/16 20:44 Urine Blood Neg (Negative) 03/02/16 20:44 Urine Nitrite Neg (Negative) 03/02/16 20:44 Urine Bilirubin Mod (Negative) 03/02/16 20:44 Urine Ictotest Positive (Negative) 03/02/16 20:44 Urine Urobilinogen 4.0 mg/dL (<2.0) 03/02/16 20:44 Ur Leukocyte Esterase Tr (Negative) 03/02/16 20:44 Urine WBC (Auto) < 1.0 /HPF (0.0-6.0) 03/02/16 20:44 Urine RBC (Auto) 1.0 /HPF (0.0-6.0) 03/02/16 20:44 U Epithel Cells (Auto) 3.0 /HPF (0-13.0) 03/02/16 20:44 Urine Bacteria (Auto) 1+ /HPF (Negative) 03/02/16 20:44 Urine Mucus 3+ /HPF 03/02/16 20:44 CSF Appearance Clear 03/12/16 Unknown CSF Color Colorless 03/12/16 Unknown CSF WBC 0 /mm3 (1-10) 03/12/16 Unknown CSF RBC 102 /mm3 (0-0) 03/12/16 Unknown CSF Seg Neutrophils 0 % (0-6) 03/12/16 Unknown CSF Lymphocytes % 0 % (40-80) 03/12/16 Unknown CSF Reactive Lymphs 0 % 03/12/16 Unknown CSF Monocytes % 0 % (15-45) 03/12/16 Unknown CSF Eosinophils % 0 % 03/12/16 Unknown CSF Basophils 0 % 03/12/16 Unknown CSF Comment No cells seen 03/12/16 Unknown CSF Pathologist Review C 03/12/16 Unknown CSF Glucose 59 mg/dL 03/12/16 Unknown CSF Total Protein 48 mg/dL 03/12/16 Unknown JAROD Screen Negative (Negative) 03/17/16 23:50 Blood Type B POSITIVE 03/19/16 09:30 Antibody Screen Negative 03/19/16 09:30 Crossmatch See Detail 03/19/16 09:30
--- NOTE | 2016-03-22 09:44 | Progress Note ---
Assessment and Plan Impression: Acute kidney injury secondary to prerenal azotemia vs obstructive uropathy --Renal u/s: right hydronephrosis Acute hypoxic respiratory failure Ecoli UTI Hypokalemia Metabolic acidosis - resolved Anemia Leukocytosis - trending down Plan: Patient with worsening renal function and electrolytes IVF for hydration; d/c bicarb gtt and start NS Repleat K Empiric abx per primary team Monitor SCr and volume status closely Strict I/O Avoid potential nephrotoxins Subjective Date of service: 03/22/16 Principal diagnosis: AMS/dysphagia/malnutrition Interval history: No acute events overnight. Objective - Vital Signs Vital signs: Vital Signs - 12hr 03/21/16 03/21/16 03/21/16 21:44 22:00 23:00 Temperature Pulse Rate 81 78 86 Pulse Rate [ Anterior Bilateral Throughout] Pulse Rate [ From Monitor] Respiratory 20 21 17 Rate Respiratory Rate [Anterior Bilateral Throughout] Blood Pressure 124/67 126/66 136/83 O2 Sat by Pulse 100 100 99 Oximetry 03/21/16 03/22/16 03/22/16 23:44 00:00 01:00 Temperature Pulse Rate 82 81 88 Pulse Rate [ Anterior Bilateral Throughout] Pulse Rate [ 78 From Monitor] Respiratory 14 17 22 Rate Respiratory Rate [Anterior Bilateral Throughout] Blood Pressure 136/83 79/44 105/74 O2 Sat by Pulse 100 98 99 Oximetry 03/22/16 03/22/16 03/22/16 01:42 02:00 02:12 Temperature Pulse Rate 77 81 78 Pulse Rate [ Anterior Bilateral Throughout] Pulse Rate [ From Monitor] Respiratory 15 19 15 Rate Respiratory Rate [Anterior Bilateral Throughout] Blood Pressure 125/89 119/75 119/75 O2 Sat by Pulse 100 100 100 Oximetry 03/22/16 03/22/16 03/22/16 03:00 04:00 05:00 Temperature Pulse Rate 80 74 89 Pulse Rate [ Anterior Bilateral Throughout] Pulse Rate [ 75 From Monitor] Respiratory 18 14 20 Rate Respiratory Rate [Anterior Bilateral Throughout] Blood Pressure 119/75 107/64 125/47 O2 Sat by Pulse 100 100 96 Oximetry 03/22/16 03/22/16 03/22/16 05:16 06:00 06:20 Temperature 98.5 F Pulse Rate 88 79 Pulse Rate [ Anterior Bilateral Throughout] Pulse Rate [ From Monitor] Respiratory 19 14 Rate Respiratory Rate [Anterior Bilateral Throughout] Blood Pressure 125/47 111/85 O2 Sat by Pulse 100 100 Oximetry 03/22/16 03/22/16 03/22/16 07:00 07:39 07:54 Temperature Pulse Rate 88 Pulse Rate [ 88 90 Anterior Bilateral Throughout] Pulse Rate [ From Monitor] Respiratory 18 Rate Respiratory 21 19 Rate [Anterior Bilateral Throughout] Blood Pressure 126/74 O2 Sat by Pulse 100 100 Oximetry 03/22/16 03/22/16 08:00 09:00 Temperature 98.8 F Pulse Rate 87 90 Pulse Rate [ Anterior Bilateral Throughout] Pulse Rate [ 87 From Monitor] Respiratory 15 18 Rate Respiratory Rate [Anterior Bilateral Throughout] Blood Pressure 98/75 139/74 O2 Sat by Pulse 100 100 Oximetry - General Appearance General appearance: well-developed, frail EENT: ATNC Respiratory: Present: Decreased Breath Sounds Cardiology: regular, S1S2 Gastrointestinal: normal, no tenderness, no distended Integumentary: no rash Musculoskeletal: other (no edema) - Lab 03/22/16 04:30 03/22/16 04:30 Most recent lab results Calcium 6.9 mg/dL (8.4-10.2) L 03/22/16 04:30 Phosphorus 4.6 mg/dL (2.5-4.5) H 03/21/16 04:45 Magnesium 1.6 mg/dL (1.7-2.3) L 03/21/16 04:45
--- NOTE | 2016-03-22 12:01 | Progress Note ---
Assessment and Plan AMS. Appears to be improving but still confused Acute renal failure electrolyte imbalance acute respiratory failure bilateral pleural effusions left and right sided hydronephrosis Recommendations Serial ammonia levels. Brain CT scan without contrast Cardiorespiratory monitoring Monitor electrolytes Critical care time was 35 minutes Subjective Date of service: 03/22/16 Principal diagnosis: AMS/dysphagia/malnutrition Interval history: Confused Objective Vital Signs - 12hr 03/22/16 03/22/16 03/22/16 00:00 01:00 01:42 Temperature Pulse Rate 81 88 77 Pulse Rate [ Anterior Bilateral Throughout] Pulse Rate [ 78 From Monitor] Respiratory 17 22 15 Rate Respiratory Rate [Anterior Bilateral Throughout] Blood Pressure 79/44 105/74 125/89 O2 Sat by Pulse 98 99 100 Oximetry 03/22/16 03/22/16 03/22/16 02:00 02:12 03:00 Temperature Pulse Rate 81 78 80 Pulse Rate [ Anterior Bilateral Throughout] Pulse Rate [ From Monitor] Respiratory 19 15 18 Rate Respiratory Rate [Anterior Bilateral Throughout] Blood Pressure 119/75 119/75 119/75 O2 Sat by Pulse 100 100 100 Oximetry 03/22/16 03/22/16 03/22/16 04:00 05:00 05:16 Temperature 98.5 F Pulse Rate 74 89 Pulse Rate [ Anterior Bilateral Throughout] Pulse Rate [ 75 From Monitor] Respiratory 14 20 Rate Respiratory Rate [Anterior Bilateral Throughout] Blood Pressure 107/64 125/47 O2 Sat by Pulse 100 96 Oximetry 03/22/16 03/22/16 03/22/16 06:00 06:20 07:00 Temperature Pulse Rate 88 79 88 Pulse Rate [ Anterior Bilateral Throughout] Pulse Rate [ From Monitor] Respiratory 19 14 18 Rate Respiratory Rate [Anterior Bilateral Throughout] Blood Pressure 125/47 111/85 126/74 O2 Sat by Pulse 100 100 100 Oximetry 03/22/16 03/22/16 03/22/16 07:39 07:54 08:00 Temperature 98.8 F Pulse Rate 87 Pulse Rate [ 88 90 Anterior Bilateral Throughout] Pulse Rate [ From Monitor] Respiratory 15 Rate Respiratory 21 19 Rate [Anterior Bilateral Throughout] Blood Pressure 98/75 O2 Sat by Pulse 100 100 Oximetry 03/22/16 09:00 Temperature Pulse Rate 90 Pulse Rate [ Anterior Bilateral Throughout] Pulse Rate [ 87 From Monitor] Respiratory 18 Rate Respiratory Rate [Anterior Bilateral Throughout] Blood Pressure 139/74 O2 Sat by Pulse 100 Oximetry Constitutional: alert, other (confused) Eyes: icteric ENT: oropharynx dry Neck: supple Effort: mildly labored Ascultation: Bilateral: diminished breath sounds (base) Percussion: Bilateral: not dull Cardiovascular: regular rate and rhythm Gastrointestinal: normoactive bowel sounds, soft, non-tender Extremities: cool Neurologic: pupils equal and round, unable to assess CBC and BMP: 03/22/16 04:30 03/22/16 04:30 ABG, PT/INR, D-dimer: ABG POC ABG pH 7.365 (7.35-7.45) 03/20/16 21:00 POC ABG pCO2 25.9 (35-45) L 03/20/16 21:00 POC ABG pO2 90 (80-105) 03/20/16 21:00 POC ABG HCO3 14.8 03/20/16 21:00 POC ABG Total CO2 16 03/20/16 21:00 POC ABG O2 Sat 97 03/20/16 21:00 PT/INR, D-dimer PT 13.0 Sec. (12.2-14.9) 03/12/16 09:50 INR 0.99 (0.87-1.13) 03/12/16 09:50 Abnormal lab findings: Abnormal Labs 03/03/16 03/03/16 03/04/16 15:47 15:47 05:14 WBC 19.2 H 23.1 H RBC 3.64 L Hgb Hct MCV RDW 16.5 H 16.6 H Plt Count 449 H Lymph % (Auto) [place] % (Auto) [place] # Eos # Seg Neutrophils % Seg Neuts % (Manual) Lymphocytes % (Manual) Monocytes % (Manual) Seg Neutrophils # Seg Neutrophils # Man Lymphocytes # (Manual) Monocytes # (Manual) Eosinophils # (Manual) APTT POC ABG pH POC ABG pCO2 Sodium Potassium 2.8 L* Chloride 96.5 L Carbon Dioxide 20 L BUN Creatinine 0.6 L Glucose 139 H POC Glucose Uric Acid Calcium Phosphorus Magnesium Total Bilirubin Ammonia Total Protein Albumin Crossmatch 03/04/16 03/04/16 03/04/16 05:14 09:01 19:38 WBC RBC Hgb Hct MCV RDW Plt Count Lymph % (Auto) [place] % (Auto) [place] # Eos # Seg Neutrophils % Seg Neuts % (Manual) Lymphocytes % (Manual) Monocytes % (Manual) Seg Neutrophils # Seg Neutrophils # Man Lymphocytes # (Manual) Monocytes # (Manual) Eosinophils # (Manual) APTT POC ABG pH POC ABG pCO2 Sodium 135 L Potassium 3.3 L Chloride 95.7 L Carbon Dioxide 19 L BUN Creatinine Glucose 130 H POC Glucose Uric Acid Calcium 8.0 L Phosphorus 1.4 L Magnesium 1.0 L Total Bilirubin 1.9 H Ammonia 95.0 H Total Protein Albumin 3.0 L Crossmatch 03/05/16 03/05/16 03/05/16 07:39 07:39 17:59 WBC 20.3 H RBC 3.50 L Hgb Hct MCV 98 H RDW 16.1 H Plt Count Lymph % (Auto) [place] % (Auto) [place] # Eos # Seg Neutrophils % Seg Neuts % (Manual) Lymphocytes % (Manual) Monocytes % (Manual) Seg Neutrophils # Seg Neutrophils # Man Lymphocytes # (Manual) Monocytes # (Manual) Eosinophils # (Manual) APTT POC ABG pH POC ABG pCO2 Sodium Potassium 2.7 L* 3.2 L Chloride Carbon Dioxide 19 L 18 L BUN Creatinine 1.4 H D 1.4 H Glucose 131 H POC Glucose Uric Acid Calcium 7.6 L 7.3 L Phosphorus 6.7 H D Magnesium 2.6 H Total Bilirubin 1.4 H Ammonia Total Protein 5.9 L Albumin 2.4 L Crossmatch 03/06/16 03/06/16 03/06/16 09:54 09:54 18:07 WBC 22.2 H RBC 3.19 L Hgb 9.9 L Hct MCV 98 H RDW 16.8 H Plt Count Lymph % (Auto) [place] % (Auto) [place] # Eos # Seg Neutrophils % Seg Neuts % (Manual) Lymphocytes % (Manual) Monocytes % (Manual) Seg Neutrophils # Seg Neutrophils # Man Lymphocytes # (Manual) Monocytes # (Manual) Eosinophils # (Manual) APTT POC ABG pH POC ABG pCO2 Sodium 150 H D Potassium 2.8 L* 2.8 L* Chloride 113.5 H Carbon Dioxide 16 L 16 L BUN Creatinine Glucose 137 H 106 H POC Glucose Uric Acid Calcium 7.4 L 7.7 L Phosphorus Magnesium Total Bilirubin Ammonia Total Protein Albumin Crossmatch 03/07/16 03/07/16 03/07/16 04:53 04:53 05:43 WBC 19.7 H RBC 3.20 L Hgb 9.9 L Hct MCV RDW 16.6 H Plt Count Lymph % (Auto) [place] % (Auto) [place] # Eos # Seg Neutrophils % Seg Neuts % (Manual) Lymphocytes % (Manual) Monocytes % (Manual) Seg Neutrophils # Seg Neutrophils # Man Lymphocytes # (Manual) Monocytes # (Manual) Eosinophils # (Manual) APTT POC ABG pH POC ABG pCO2 Sodium Potassium 2.9 L* Chloride 114.1 H Carbon Dioxide 19 L BUN Creatinine Glucose 140 H POC Glucose 143 H Uric Acid Calcium 7.8 L Phosphorus Magnesium Total Bilirubin Ammonia Total Protein Albumin Crossmatch 03/07/16 03/08/16 03/08/16 22:20 05:09 05:09 WBC 32.2 H RBC 3.18 L Hgb 10.0 L Hct MCV RDW 16.8 H Plt Count Lymph % (Auto) [place] % (Auto) [place] # Eos # Seg Neutrophils % Seg Neuts % (Manual) Lymphocytes % (Manual) Monocytes % (Manual) Seg Neutrophils # Seg Neutrophils # Man Lymphocytes # (Manual) Monocytes # (Manual) Eosinophils # (Manual) APTT POC ABG pH POC ABG pCO2 Sodium 155 H D Potassium 6.3 H* D 6.1 H* Chloride Carbon Dioxide 18 L BUN Creatinine 1.6 H D Glucose 213 H POC Glucose Uric Acid Calcium Phosphorus Magnesium Total Bilirubin Ammonia Total Protein Albumin Crossmatch 03/08/16 03/08/16 03/08/16 09:11 16:28 17:27 WBC RBC Hgb Hct MCV RDW Plt Count Lymph % (Auto) [place] % (Auto) [place] # Eos # Seg Neutrophils % Seg Neuts % (Manual) Lymphocytes % (Manual) Monocytes % (Manual) Seg Neutrophils # Seg Neutrophils # Man Lymphocytes # (Manual) Monocytes # (Manual) Eosinophils # (Manual) APTT POC ABG pH POC ABG pCO2 Sodium 156 H Potassium Chloride 126.2 H Carbon Dioxide 19 L BUN Creatinine 1.8 H Glucose 175 H POC Glucose 204 H 130 H Uric Acid Calcium Phosphorus Magnesium Total Bilirubin Ammonia Total Protein Albumin Crossmatch 03/08/16 03/09/16 03/09/16 22:06 05:47 08:00 WBC 29.9 H RBC 2.93 L Hgb 9.0 L Hct 28.4 L MCV RDW 17.4 H Plt Count Lymph % (Auto) [place] % (Auto) [place] # Eos # Seg Neutrophils % Seg Neuts % (Manual) Lymphocytes % (Manual) Monocytes % (Manual) Seg Neutrophils # Seg Neutrophils # Man Lymphocytes # (Manual) Monocytes # (Manual) Eosinophils # (Manual) APTT POC ABG pH POC ABG pCO2 Sodium Potassium Chloride Carbon Dioxide BUN Creatinine Glucose POC Glucose 192 H 206 H Uric Acid Calcium Phosphorus Magnesium Total Bilirubin Ammonia Total Protein Albumin Crossmatch 03/09/16 03/09/16 03/09/16 08:00 11:33 16:03 WBC RBC Hgb Hct MCV RDW Plt Count Lymph % (Auto) [place] % (Auto) [place] # Eos # Seg Neutrophils % Seg Neuts % (Manual) Lymphocytes % (Manual) Monocytes % (Manual) Seg Neutrophils # Seg Neutrophils # Man Lymphocytes # (Manual) Monocytes # (Manual) Eosinophils # (Manual) APTT POC ABG pH POC ABG pCO2 Sodium 154 H Potassium Chloride 123.0 H Carbon Dioxide 21 L BUN 18 H Creatinine 1.9 H Glucose 179 H POC Glucose 152 H 130 H Uric Acid Calcium 8.2 L Phosphorus Magnesium Total Bilirubin Ammonia Total Protein Albumin Crossmatch 03/10/16 03/10/16 03/10/16 06:16 11:53 17:22 WBC RBC Hgb Hct MCV RDW Plt Count Lymph % (Auto) [place] % (Auto) [place] # Eos # Seg Neutrophils % Seg Neuts % (Manual) Lymphocytes % (Manual) Monocytes % (Manual) Seg Neutrophils # Seg Neutrophils # Man Lymphocytes # (Manual) Monocytes # (Manual) Eosinophils # (Manual) APTT POC ABG pH POC ABG pCO2 Sodium Potassium Chloride Carbon Dioxide BUN Creatinine Glucose POC Glucose 170 H 141 H 159 H Uric Acid Calcium Phosphorus Magnesium Total Bilirubin Ammonia Total Protein Albumin Crossmatch 03/10/16 03/10/16 03/10/16 Unknown Unknown Unknown WBC 22.8 H RBC 2.70 L Hgb 8.7 L Hct 26.4 L MCV 98 H RDW 17.1 H Plt Count Lymph % (Auto) [place] % (Auto) [place] # Eos # Seg Neutrophils % Seg Neuts % (Manual) 78.0 H Lymphocytes % (Manual) 12.0 L Monocytes % (Manual) Seg Neutrophils # Seg Neutrophils # Man 17.8 H Lymphocytes # (Manual) Monocytes # (Manual) 1.1 H Eosinophils # (Manual) 0.9 H APTT POC ABG pH POC ABG pCO2 Sodium 147 H Potassium Chloride 115.0 H Carbon Dioxide 20 L BUN 22 H Creatinine 1.6 H Glucose 142 H POC Glucose Uric Acid Calcium 7.7 L Phosphorus Magnesium 1.5 L Total Bilirubin Ammonia Total Protein Albumin Crossmatch 03/11/16 03/11/16 03/11/16 00:11 00:50 06:15 WBC 24.3 H RBC 2.93 L Hgb 9.0 L Hct 28.1 L MCV RDW 17.4 H Plt Count Lymph % (Auto) [place] % (Auto) [place] # Eos # Seg Neutrophils % Seg Neuts % (Manual) 74.0 H Lymphocytes % (Manual) 10.0 L Monocytes % (Manual) 8.0 H Seg Neutrophils # Seg Neutrophils # Man 18.0 H Lymphocytes # (Manual) Monocytes # (Manual) 1.9 H Eosinophils # (Manual) 1.0 H APTT POC ABG pH POC ABG pCO2 Sodium Potassium Chloride Carbon Dioxide BUN Creatinine Glucose POC Glucose 143 H 136 H Uric Acid Calcium Phosphorus Magnesium Total Bilirubin Ammonia Total Protein Albumin Crossmatch 03/11/16 03/12/16 03/12/16 07:24 09:50 12:10 WBC RBC Hgb Hct MCV RDW Plt Count Lymph % (Auto) [place] % (Auto) [place] # Eos # Seg Neutrophils % Seg Neuts % (Manual) Lymphocytes % (Manual) Monocytes % (Manual) Seg Neutrophils # Seg Neutrophils # Man Lymphocytes # (Manual) Monocytes # (Manual) Eosinophils # (Manual) APTT 38.8 H POC ABG pH POC ABG pCO2 Sodium 135 L D Potassium Chloride Carbon Dioxide BUN 27 H Creatinine 1.8 H Glucose 136 H POC Glucose 111 H Uric Acid Calcium 7.5 L Phosphorus Magnesium 1.4 L Total Bilirubin Ammonia Total Protein Albumin Crossmatch 03/12/16 03/12/16 03/13/16 16:39 21:45 05:00 WBC 19.2 H RBC 2.68 L Hgb 8.5 L Hct 25.7 L MCV RDW 17.4 H Plt Count Lymph % (Auto) 9.3 L [place] % (Auto) 8.7 H [place] # 1.7 H Eos # 0.5 H Seg Neutrophils % 78.6 H Seg Neuts % (Manual) Lymphocytes % (Manual) Monocytes % (Manual) Seg Neutrophils # 15.1 H Seg Neutrophils # Man Lymphocytes # (Manual) Monocytes # (Manual) Eosinophils # (Manual) APTT POC ABG pH POC ABG pCO2 Sodium Potassium Chloride Carbon Dioxide BUN Creatinine Glucose POC Glucose 112 H 124 H Uric Acid Calcium Phosphorus Magnesium Total Bilirubin Ammonia Total Protein Albumin Crossmatch 03/13/16 03/13/16 03/14/16 05:00 16:19 06:21 WBC RBC Hgb Hct MCV RDW Plt Count Lymph % (Auto) [place] % (Auto) [place] # Eos # Seg Neutrophils % Seg Neuts % (Manual) Lymphocytes % (Manual) Monocytes % (Manual) Seg Neutrophils # Seg Neutrophils # Man Lymphocytes # (Manual) Monocytes # (Manual) Eosinophils # (Manual) APTT POC ABG pH POC ABG pCO2 Sodium Potassium Chloride Carbon Dioxide 20 L BUN 31 H Creatinine 2.1 H Glucose POC Glucose 61 L 125 H Uric Acid Calcium 7.8 L Phosphorus Magnesium 3.1 H Total Bilirubin Ammonia Total Protein Albumin Crossmatch 03/14/16 03/14/16 03/15/16 13:48 18:34 00:02 WBC RBC Hgb Hct MCV RDW Plt Count Lymph % (Auto) [place] % (Auto) [place] # Eos # Seg Neutrophils % Seg Neuts % (Manual) Lymphocytes % (Manual) Monocytes % (Manual) Seg Neutrophils # Seg Neutrophils # Man Lymphocytes # (Manual) Monocytes # (Manual) Eosinophils # (Manual) APTT POC ABG pH POC ABG pCO2 Sodium Potassium Chloride Carbon Dioxide BUN Creatinine Glucose POC Glucose 107 H 124 H 138 H Uric Acid Calcium Phosphorus Magnesium Total Bilirubin Ammonia Total Protein Albumin Crossmatch 03/15/16 03/15/16 03/15/16 06:40 06:40 07:23 WBC 13.5 H RBC 2.32 L Hgb 7.5 L Hct 22.3 L MCV RDW 17.5 H Plt Count Lymph % (Auto) 12.8 L [place] % (Auto) 8.2 H [place] # 1.1 H Eos # Seg Neutrophils % 75.5 H Seg Neuts % (Manual) Lymphocytes % (Manual) Monocytes % (Manual) Seg Neutrophils # 10.2 H Seg Neutrophils # Man Lymphocytes # (Manual) Monocytes # (Manual) Eosinophils # (Manual) APTT POC ABG pH POC ABG pCO2 Sodium Potassium Chloride 110.8 H Carbon Dioxide 16 L BUN 28 H Creatinine 2.4 H Glucose POC Glucose 112 H Uric Acid Calcium 7.0 L Phosphorus Magnesium Total Bilirubin Ammonia Total Protein Albumin Crossmatch 03/15/16 03/15/16 03/15/16 11:46 16:32 20:52 WBC RBC Hgb Hct MCV RDW Plt Count Lymph % (Auto) [place] % (Auto) [place] # Eos # Seg Neutrophils % Seg Neuts % (Manual) Lymphocytes % (Manual) Monocytes % (Manual) Seg Neutrophils # Seg Neutrophils # Man Lymphocytes # (Manual) Monocytes # (Manual) Eosinophils # (Manual) APTT POC ABG pH POC ABG pCO2 Sodium Potassium Chloride Carbon Dioxide BUN Creatinine Glucose POC Glucose 138 H 127 H 118 H Uric Acid Calcium Phosphorus Magnesium Total Bilirubin Ammonia Total Protein Albumin Crossmatch 03/16/16 03/16/16 03/16/16 06:01 06:01 06:24 WBC 27.8 H RBC 2.41 L Hgb 7.4 L Hct 23.2 L MCV RDW 18.2 H Plt Count Lymph % (Auto) [place] % (Auto) [place] # Eos # Seg Neutrophils % Seg Neuts % (Manual) 91.5 H Lymphocytes % (Manual) 2.5 L Monocytes % (Manual) Seg Neutrophils # Seg Neutrophils # Man 25.4 H Lymphocytes # (Manual) 0.7 L Monocytes # (Manual) Eosinophils # (Manual) APTT POC ABG pH POC ABG pCO2 Sodium Potassium Chloride 113.0 H Carbon Dioxide 15 L BUN 30 H Creatinine 2.6 H Glucose 130 H POC Glucose 159 H Uric Acid Calcium 6.8 L Phosphorus Magnesium Total Bilirubin Ammonia Total Protein Albumin Crossmatch 03/16/16 03/16/16 03/16/16 11:34 16:37 23:46 WBC RBC Hgb Hct MCV RDW Plt Count Lymph % (Auto) [place] % (Auto) [place] # Eos # Seg Neutrophils % Seg Neuts % (Manual) Lymphocytes % (Manual) Monocytes % (Manual) Seg Neutrophils # Seg Neutrophils # Man Lymphocytes # (Manual) Monocytes # (Manual) Eosinophils # (Manual) APTT POC ABG pH POC ABG pCO2 Sodium Potassium Chloride Carbon Dioxide BUN Creatinine Glucose POC Glucose 164 H 109 H 114 H Uric Acid Calcium Phosphorus Magnesium Total Bilirubin Ammonia Total Protein Albumin Crossmatch 03/17/16 03/17/16 03/17/16 11:33 22:11 23:50 WBC RBC Hgb Hct MCV RDW Plt Count Lymph % (Auto) [place] % (Auto) [place] # Eos # Seg Neutrophils % Seg Neuts % (Manual) Lymphocytes % (Manual) Monocytes % (Manual) Seg Neutrophils # Seg Neutrophils # Man Lymphocytes # (Manual) Monocytes # (Manual) Eosinophils # (Manual) APTT POC ABG pH 7.319 L POC ABG pCO2 28.6 L Sodium Potassium Chloride 111.6 H Carbon Dioxide 16 L BUN 34 H Creatinine 2.7 H Glucose 115 H POC Glucose 117 H Uric Acid 8.4 H Calcium 7.4 L Phosphorus Magnesium Total Bilirubin Ammonia Total Protein Albumin Crossmatch 03/17/16 03/18/16 03/19/16 23:50 11:11 05:20 WBC 18.2 H RBC 2.11 L Hgb 6.7 L Hct 20.1 L MCV RDW 17.5 H Plt Count Lymph % (Auto) [place] % (Auto) [place] # Eos # Seg Neutrophils % Seg Neuts % (Manual) Lymphocytes % (Manual) Monocytes % (Manual) Seg Neutrophils # Seg Neutrophils # Man Lymphocytes # (Manual) Monocytes # (Manual) Eosinophils # (Manual) APTT POC ABG pH 7.320 L POC ABG pCO2 29.9 L Sodium Potassium Chloride Carbon Dioxide BUN Creatinine Glucose POC Glucose 124 H Uric Acid Calcium Phosphorus Magnesium Total Bilirubin Ammonia Total Protein Albumin Crossmatch 03/19/16 03/19/16 03/19/16 05:20 06:11 09:30 WBC RBC Hgb Hct MCV RDW Plt Count Lymph % (Auto) [place] % (Auto) [place] # Eos # Seg Neutrophils % Seg Neuts % (Manual) Lymphocytes % (Manual) Monocytes % (Manual) Seg Neutrophils # Seg Neutrophils # Man Lymphocytes # (Manual) Monocytes # (Manual) Eosinophils # (Manual) APTT POC ABG pH POC ABG pCO2 Sodium Potassium Chloride 114.1 H Carbon Dioxide 16 L BUN 32 H Creatinine 2.2 H Glucose POC Glucose 63 L Uric Acid Calcium 7.7 L Phosphorus Magnesium Total Bilirubin Ammonia Total Protein Albumin Crossmatch See Detail 03/19/16 03/19/16 03/19/16 12:14 16:30 23:57 WBC RBC Hgb Hct MCV RDW Plt Count Lymph % (Auto) [place] % (Auto) [place] # Eos # Seg Neutrophils % Seg Neuts % (Manual) Lymphocytes % (Manual) Monocytes % (Manual) Seg Neutrophils # Seg Neutrophils # Man Lymphocytes # (Manual) Monocytes # (Manual) Eosinophils # (Manual) APTT POC ABG pH POC ABG pCO2 Sodium Potassium Chloride Carbon Dioxide BUN Creatinine Glucose POC Glucose 138 H 133 H 190 H Uric Acid Calcium Phosphorus Magnesium Total Bilirubin Ammonia Total Protein Albumin Crossmatch 03/20/16 03/20/16 03/20/16 06:38 11:52 15:36 WBC RBC Hgb Hct MCV RDW Plt Count Lymph % (Auto) [place] % (Auto) [place] # Eos # Seg Neutrophils % Seg Neuts % (Manual) Lymphocytes % (Manual) Monocytes % (Manual) Seg Neutrophils # Seg Neutrophils # Man Lymphocytes # (Manual) Monocytes # (Manual) Eosinophils # (Manual) APTT POC ABG pH POC ABG pCO2 Sodium Potassium Chloride Carbon Dioxide BUN Creatinine Glucose POC Glucose 163 H 138 H 151 H Uric Acid Calcium Phosphorus Magnesium Total Bilirubin Ammonia Total Protein Albumin Crossmatch 03/20/16 03/20/16 03/20/16 21:00 23:55 Unknown WBC 30.1 H RBC 3.23 L Hgb Hct 29.6 L D MCV RDW 16.2 H Plt Count Lymph % (Auto) [place] % (Auto) [place] # Eos # Seg Neutrophils % Seg Neuts % (Manual) Lymphocytes % (Manual) Monocytes % (Manual) Seg Neutrophils # Seg Neutrophils # Man Lymphocytes # (Manual) Monocytes # (Manual) Eosinophils # (Manual) APTT POC ABG pH POC ABG pCO2 25.9 L Sodium Potassium Chloride Carbon Dioxide BUN Creatinine Glucose POC Glucose 167 H Uric Acid Calcium Phosphorus Magnesium Total Bilirubin Ammonia Total Protein Albumin Crossmatch 03/20/16 03/21/16 03/21/16 Unknown 04:45 04:45 WBC 28.0 H RBC 3.37 L Hgb Hct MCV RDW 16.4 H Plt Count Lymph % (Auto) [place] % (Auto) [place] # Eos # Seg Neutrophils % Seg Neuts % (Manual) Lymphocytes % (Manual) Monocytes % (Manual) Seg Neutrophils # Seg Neutrophils # Man Lymphocytes # (Manual) Monocytes # (Manual) Eosinophils # (Manual) APTT POC ABG pH POC ABG pCO2 Sodium Potassium 5.1 H Chloride 110.4 H Carbon Dioxide 14 L BUN 34 H 37 H Creatinine 2.9 H 3.2 H Glucose 131 H 124 H POC Glucose Uric Acid Calcium 7.5 L 7.1 L Phosphorus 4.6 H Magnesium 1.6 L Total Bilirubin Ammonia Total Protein Albumin Crossmatch 03/21/16 03/21/16 03/21/16 05:52 11:23 17:48 WBC RBC Hgb Hct MCV RDW Plt Count Lymph % (Auto) [place] % (Auto) [place] # Eos # Seg Neutrophils % Seg Neuts % (Manual) Lymphocytes % (Manual) Monocytes % (Manual) Seg Neutrophils # Seg Neutrophils # Man Lymphocytes # (Manual) Monocytes # (Manual) Eosinophils # (Manual) APTT POC ABG pH POC ABG pCO2 Sodium Potassium Chloride Carbon Dioxide BUN Creatinine Glucose POC Glucose 136 H 144 H 149 H Uric Acid Calcium Phosphorus Magnesium Total Bilirubin Ammonia Total Protein Albumin Crossmatch 03/21/16 03/22/16 03/22/16 22:05 00:44 04:30 WBC 23.2 H RBC 3.38 L Hgb Hct MCV RDW 16.1 H Plt Count Lymph % (Auto) [place] % (Auto) [place] # Eos # Seg Neutrophils % Seg Neuts % (Manual) Lymphocytes % (Manual) Monocytes % (Manual) Seg Neutrophils # Seg Neutrophils # Man Lymphocytes # (Manual) Monocytes # (Manual) Eosinophils # (Manual) APTT POC ABG pH POC ABG pCO2 Sodium Potassium Chloride Carbon Dioxide BUN Creatinine Glucose POC Glucose 129 H 121 H Uric Acid Calcium Phosphorus Magnesium Total Bilirubin Ammonia Total Protein Albumin Crossmatch 03/22/16 03/22/16 04:30 06:17 WBC RBC Hgb Hct MCV RDW Plt Count Lymph % (Auto) [place] % (Auto) [place] # Eos # Seg Neutrophils % Seg Neuts % (Manual) Lymphocytes % (Manual) Monocytes % (Manual) Seg Neutrophils # Seg Neutrophils # Man Lymphocytes # (Manual) Monocytes # (Manual) Eosinophils # (Manual) APTT POC ABG pH POC ABG pCO2 Sodium Potassium 3.0 L D Chloride Carbon Dioxide BUN 27 H Creatinine 1.5 H D Glucose 124 H POC Glucose 120 H Uric Acid Calcium 6.9 L Phosphorus Magnesium Total Bilirubin Ammonia Total Protein Albumin Crossmatch Chest x-ray: report reviewed, image reviewed
[2016-03-22] MEDS: TENORMIN PO SCH (12:42)
[2016-03-22] MEDS: VITAMIN B-1 FEEDTUBE SCH (12:42)
[2016-03-22] MEDS: FOLVITE PO SCH (12:42)
[2016-03-22] MEDS ORDERED: POTASSIUM CHLORIDE FEEDTUBE ONE ×2 (14:00→17:00)
--- NOTE | 2016-03-22 16:05 | Cat Scan Report ---
CT scan of head without contrast: History: AMS, encephalopathy. Findings: Ventricles are normal in size and midline in location. No evidence of acute ischemia, hemorrhage or mass. No extra-axial fluid collection. Minimal volume loss. Normal brainstem and cerebellum. Normal sinuses and mastoid air cells. Impression: No acute intracranial abnormality.
[2016-03-22 18:25] LABS: Bacteria,Urine 3+ /HPF (Negative); Bilirubin,Urine NEG (Negative); Blood,Urine LG (Negative); Ketones,Urine NEG (Negative); Leukocyte Esterase,Urine LG (Negative); Mucus,Urine FEW /HPF; Nitrite,Urine NEG (Negative); Protein,Urine <15 mg/dL mg/dL (Negative); Urobilinogen,Urine < 2.0 mg/dL (<2.0)
[2016-03-22 18:26] LABS: RBC,Urine > 182.0 /HPF (0.0-6.0)
[2016-03-23 04:55] LABS: BUN/Creatinine Ratio 22.85; Blood Urea Nitrogen 16 mg/dL (7-17); Calcium 6.6 mg/dL (8.4-10.2); Carbon Dioxide 30 mmol/L (22-30); Chloride 103.8 mmol/L (98-107); Glucose 111 mg/dL (65-100); Potassium 3.1 mmol/L (3.6-5.0); Sodium 141 mmol/L (137-145)
[2016-03-23 04:56] LABS: Anion Gap 10 mmol/L
[2016-03-23] MEDS: NOVOLOG SUB-Q SCH ×4 (06:03→18:37)
[2016-03-23] MEDS: HEPARIN SUB-Q SCH ×3 (06:06→21:07)
[2016-03-23 07:13] LABS: Hematocrit 32.4 % (30.3-42.9); Hemoglobin 10.6 gm/dl (10.1-14.3); Mean Corpuscular HGB Conc 33 % (30-34); Mean Corpuscular Hemoglobin 30 pg (28-32); Mean Corpuscular Volume 91 fl (79-97); Platelet Count 301 K/mm3 (140-440); Red Blood Count 3.59 M/mm3 (3.65-5.03); Red Cell Distribution Width 15.8 % (13.2-15.2)
[2016-03-23 07:25] LABS: White Blood Count 22.2 K/mm3 (4.5-11.0)
[2016-03-23] MEDS: PULMICORT IH SCH ×2 (07:38→20:26)
[2016-03-23] MEDS: BROVANA NEBU IH SCH ×2 (07:38→20:26)
[2016-03-23] MEDS: POTASSIUM CHLORIDE FEEDTUBE SCH ×4 (08:32→20:50)
--- NOTE | 2016-03-23 08:37 | Progress Note ---
Assessment and Plan Assessment and plan: Acute Metabolic encephalopathy. Patient lethargic, confused.Workup so far negative, MRI no acute intracranial abnormality noted Lumbar puncture and CSF analysis negative Acute respiratory failure. On supplemental Oxygen at 2 L/m nasal cannula with oxygen saturation of 96%. Anemia due to chronic disease. Hemoglobin now 10.5 after 1 Unit PRBC Dysphagia, secondary to metabolic encephalopathy. PEG tube placed. Continue tube feeding. Acute kidney injury,much improved. Creatinine 0.6 today from 3.2, few days ago. Nephrology following. Gonzalez catheter, strict I/O Hydronephrosis bilat. CT Abd did not show any etiology. Consulted Urology. Discussed case with Dr. Prabhakar and he recommended repeat CT abdomen. This is done today, report pending. Leukocytosis. improving. No fever. WBC 23 today. Continue to monitor off antibiotics as recommended by ID. --Positive urine cultures for Escherichia coli almost 3 weeks ago. Completed antibiotics. ID was following but just signed off. Recommend monitor off antibiotics Hyperkalemia. This is now resolved. --Hypernatremia. Resolved --Hypertension. Well controlled on Atenolol, lisinopril, clonidine prn. --Full code status --DVT prophylaxis with heparin Disposition. Discussed with Case management.Plan is for SNF placement when medically stable. I have also had several discussions with at bedside. She is better and will beat transferred out of ICU to medical floor. History Interval history: Patient transferred to ICU for closer monitoring since she was worsening Confusion still present, still agitated on and off, Hospitalist Physical - Physical exam Narrative exam: Narrative exam: Gen: Not in acute distress, ill looking, has Ventimask on HEENT: Atraumatic, Neck :supple, no JVD Lungs: Lungs clear to auscultation bilaterally, no crackles or wheeze Heart: S1 and S2 regular, no murmurs, rubs or gallop Abdomen:soft, non-tender, non-distended, normal bowel sounds, PEG tube Ext: No edema, no clubbing or cyanosis Neuro: Lethargic,but more arouseable, confused. moves all ext, does not follow commands - Constitutional Vitals: Temp Pulse Resp BP Pulse Ox 98.4 F 94 H 20 98/82 96 03/23/16 04:21 03/23/16 07:46 03/23/16 07:46 03/23/16 07:04 03/23/16 07:40 General appearance: Present: no acute distress, well-nourished Results - Labs CBC & Chem 7: 03/23/16 07:00 03/23/16 04:00 Labs: Laboratory Last Values WBC 22.2 K/mm3 (4.5-11.0) H 03/23/16 07:00 RBC 3.59 M/mm3 (3.65-5.03) L 03/23/16 07:00 Hgb 10.6 gm/dl (10.1-14.3) 03/23/16 07:00 Hct 32.4 % (30.3-42.9) 03/23/16 07:00 MCV 91 fl (79-97) 03/23/16 07:00 MCH 30 pg (28-32) 03/23/16 07:00 MCHC 33 % (30-34) 03/23/16 07:00 RDW 15.8 % (13.2-15.2) H 03/23/16 07:00 Plt Count 301 K/mm3 (140-440) 03/23/16 07:00 Lymph % (Auto) 12.8 % (13.4-35.0) L 03/15/16 06:40 Haakon % (Auto) 8.2 % (0.0-7.3) H 03/15/16 06:40 Eos % (Auto) 3.0 % (0.0-4.3) 03/15/16 06:40 Baso % (Auto) 0.5 % (0.0-1.8) 03/15/16 06:40 Lymph # 1.7 K/mm3 (1.2-5.4) 03/15/16 06:40 Haakon # 1.1 K/mm3 (0.0-0.8) H 03/15/16 06:40 Eos # 0.4 K/mm3 (0.0-0.4) 03/15/16 06:40 Baso # 0.1 K/mm3 (0.0-0.1) 03/15/16 06:40 Add Manual Diff Complete 03/16/16 06:01 Total Counted 200 03/16/16 06:01 Seg Neutrophils % 75.5 % (40.0-70.0) H 03/15/16 06:40 Seg Neuts % (Manual) 91.5 % (40.0-70.0) H 03/16/16 06:01 Band Neutrophils % 4.0 % 03/16/16 06:01 Lymphocytes % (Manual) 2.5 % (13.4-35.0) L 03/16/16 06:01 Reactive Lymphs % (Man) 0 % 03/16/16 06:01 Monocytes % (Manual) 1.5 % (0.0-7.3) 03/16/16 06:01 Eosinophils % (Manual) 0 % (0.0-4.3) 03/16/16 06:01 Basophils % (Manual) 0.5 % (0.0-1.8) 03/16/16 06:01 Metamyelocytes % 0 % 03/16/16 06:01 Myelocytes % 0 % 03/16/16 06:01 Promyelocytes % 0 % 03/16/16 06:01 Blast Cells % 0 % 03/16/16 06:01 Nucleated RBC % Not Reportable 03/16/16 06:01 Seg Neutrophils # 10.2 K/mm3 (1.8-7.7) H 03/15/16 06:40 Seg Neutrophils # Man 25.4 K/mm3 (1.8-7.7) H 03/16/16 06:01 Band Neutrophils # 1.1 K/mm3 03/16/16 06:01 Lymphocytes # (Manual) 0.7 K/mm3 (1.2-5.4) L 03/16/16 06:01 Abs React Lymphs (Man) 0.0 K/mm3 03/16/16 06:01 Monocytes # (Manual) 0.4 K/mm3 (0.0-0.8) 03/16/16 06:01 Eosinophils # (Manual) 0.0 K/mm3 (0.0-0.4) 03/16/16 06:01 Basophils # (Manual) 0.1 K/mm3 (0.0-0.1) 03/16/16 06:01 Metamyelocytes # 0.0 K/mm3 03/16/16 06:01 Myelocytes # 0.0 K/mm3 03/16/16 06:01 Promyelocytes # 0.0 K/mm3 03/16/16 06:01 Blast Cells # 0.0 K/mm3 03/16/16 06:01 WBC Morphology Not Reportable 03/16/16 06:01 Hypersegmented Neuts Not Reportable 03/16/16 06:01 Hyposegmented Neuts Not Reportable 03/16/16 06:01 Hypogranular Neuts Not Reportable 03/16/16 06:01 Smudge Cells Not Reportable 03/16/16 06:01 Toxic Granulation Not Reportable 03/16/16 06:01 Toxic Vacuolation Not Reportable 03/16/16 06:01 Dohle Bodies Not Reportable 03/16/16 06:01 Pelger-Huet Anomaly Not Reportable 03/16/16 06:01 Betty Rods Not Reportable 03/16/16 06:01 Platelet Estimate Appears normal 03/16/16 06:01 Clumped Platelets Not Reportable 03/16/16 06:01 Plt Clumps, EDTA Not Reportable 03/16/16 06:01 Large Platelets Not Reportable 03/16/16 06:01 Giant Platelets Not Reportable 03/16/16 06:01 Platelet Satelliting Not Reportable 03/16/16 06:01 Plt Morphology Comment Not Reportable 03/16/16 06:01 RBC Morphology Not Reportable 03/16/16 06:01 Dimorphic RBCs Not Reportable 03/16/16 06:01 Polychromasia Few 03/16/16 06:01 Hypochromasia Not Reportable 03/16/16 06:01 Poikilocytosis Not Reportable 03/16/16 06:01 Anisocytosis 1+ 03/16/16 06:01 Microcytosis Not Reportable 03/16/16 06:01 Macrocytosis Not Reportable 03/16/16 06:01 Spherocytes Not Reportable 03/16/16 06:01 Pappenheimer Bodies Not Reportable 03/16/16 06:01 Sickle Cells Not Reportable 03/16/16 06:01 Target Cells Few 03/16/16 06:01 Tear Drop Cells Rare 03/16/16 06:01 Ovalocytes Not Reportable 03/16/16 06:01 Helmet Cells Not Reportable 03/16/16 06:01 Cr[place] Bodies Not Reportable 03/16/16 06:01 [place] Rings Not Reportable 03/16/16 06:01 Tim Cells Not Reportable 03/16/16 06:01 Bite Cells Not Reportable 03/16/16 06:01 Crenated Cell Not Reportable 03/16/16 06:01 Elliptocytes Not Reportable 03/16/16 06:01 Acanthocytes (Spur) Not Reportable 03/16/16 06:01 Rouleaux Not Reportable 03/16/16 06:01 Hemoglobin C Crystals Not Reportable 03/16/16 06:01 Schistocytes Not Reportable 03/16/16 06:01 Malaria parasites Not Reportable 03/16/16 06:01 Matthew Bodies Not Reportable 03/16/16 06:01 Hem Pathologist Commnt No 03/16/16 06:01 PT 13.0 Sec. (12.2-14.9) 03/12/16 09:50 INR 0.99 (0.87-1.13) 03/12/16 09:50 APTT 38.8 Sec. (24.2-36.6) H 03/12/16 09:50 POC ABG pH 7.365 (7.35-7.45) 03/20/16 21:00 POC ABG pCO2 25.9 (35-45) L 03/20/16 21:00 POC ABG pO2 90 (80-105) 03/20/16 21:00 POC ABG HCO3 14.8 03/20/16 21:00 POC ABG Total CO2 16 03/20/16 21:00 POC ABG O2 Sat 97 03/20/16 21:00 POC ABG Base Excess -11 03/20/16 21:00 FiO2 31 % 03/20/16 21:00 Sodium 141 mmol/L (137-145) 03/23/16 04:00 Potassium 3.1 mmol/L (3.6-5.0) L 03/23/16 04:00 Chloride 103.8 mmol/L (98-107) 03/23/16 04:00 Carbon Dioxide 30 mmol/L (22-30) 03/23/16 04:00 Anion Gap 10 mmol/L 03/23/16 04:00 BUN 16 mg/dL (7-17) 03/23/16 04:00 Creatinine 0.7 mg/dL (0.7-1.2) D 03/23/16 04:00 Estimated GFR > 60 ml/min 03/23/16 04:00 BUN/Creatinine Ratio 22.85 % 03/23/16 04:00 Glucose 111 mg/dL (65-100) H 03/23/16 04:00 POC Glucose 100 (70-105) 03/23/16 00:41 Osmolality 301 Mosm/kg 03/17/16 23:50 Lactic Acid 1.7 mmol/L (0.7-2.0) 03/03/16 02:43 Uric Acid 8.4 mg/dL (3.5-7.6) H 03/17/16 23:50 Calcium 6.6 mg/dL (8.4-10.2) L 03/23/16 04:00 Ionized Calcium 4.9 mg/dL (4.8-5.6) 03/17/16 20:53 Phosphorus 4.6 mg/dL (2.5-4.5) H 03/21/16 04:45 Magnesium 1.6 mg/dL (1.7-2.3) L 03/21/16 04:45 Total Bilirubin 1.4 mg/dL (0.1-1.2) H 03/05/16 07:39 AST 38 units/L (5-40) 03/05/16 07:39 ALT 17 units/L (7-56) 03/05/16 07:39 Alkaline Phosphatase 105 units/L (35-129) 03/05/16 07:39 Ammonia 58.0 umol/L (25-60) 03/22/16 19:50 Total Creatine Kinase 42 units/L (30-135) 03/02/16 18:35 CK-MB (CK-2) < 1.0 ng/mL (0.0-4.0) 03/02/16 18:35 CK-MB (CK-2) Rel Index 2.3 (0-4) 03/02/16 18:35 Troponin T < 0.010 ng/mL (0.00-0.029) 03/02/16 18:35 Total Protein 5.9 g/dL (6.3-8.2) L 03/05/16 07:39 Albumin 2.4 g/dL (3.9-5) L 03/05/16 07:39 Albumin/Globulin Ratio 0.7 % 03/05/16 07:39 TSH 0.427 mlU/mL (0.270-4.200) 03/04/16 19:38 Free T4 1.36 ng/dL (0.76-1.46) 03/02/16 18:35 Urine Color Yellow (Yellow) 03/22/16 17:47 Urine Turbidity Cloudy (Clear) 03/22/16 17:47 Urine pH 6.0 (5.0-7.0) 03/22/16 17:47 Ur Specific Holden 1.012 (1.003-1.030) 03/22/16 17:47 Urine Protein <15 mg/dl mg/dL (Negative) 03/22/16 17:47 Urine Glucose (UA) Neg mg/dL (Negative) 03/22/16 17:47 Urine Ketones Neg mg/dL (Negative) 03/22/16 17:47 Urine Blood Lg (Negative) 03/22/16 17:47 Urine Nitrite Neg (Negative) 03/22/16 17:47 Urine Bilirubin Neg (Negative) 03/22/16 17:47 Urine Ictotest Positive (Negative) 03/02/16 20:44 Urine Urobilinogen < 2.0 mg/dL (<2.0) 03/22/16 17:47 Ur Leukocyte Esterase Lg (Negative) 03/22/16 17:47 Urine WBC (Auto) 138.0 /HPF (0.0-6.0) H 03/22/16 17:47 Urine RBC (Auto) > 182.0 /HPF (0.0-6.0) 03/22/16 17:47 U Epithel Cells (Auto) 1.0 /HPF (0-13.0) 03/22/16 17:47 Urine Bacteria (Auto) 3+ /HPF (Negative) 03/22/16 17:47 Urine WBC Clumps 3+ /HPF 03/22/16 17:47 Urine Mucus Few /HPF 03/22/16 17:47 CSF Appearance Clear 03/12/16 Unknown CSF Color Colorless 03/12/16 Unknown CSF WBC 0 /mm3 (1-10) 03/12/16 Unknown CSF RBC 102 /mm3 (0-0) 03/12/16 Unknown CSF Seg Neutrophils 0 % (0-6) 03/12/16 Unknown CSF Lymphocytes % 0 % (40-80) 03/12/16 Unknown CSF Reactive Lymphs 0 % 03/12/16 Unknown CSF Monocytes % 0 % (15-45) 03/12/16 Unknown CSF Eosinophils % 0 % 03/12/16 Unknown CSF Basophils 0 % 03/12/16 Unknown CSF Comment No cells seen 03/12/16 Unknown CSF Pathologist Review C 03/12/16 Unknown CSF Glucose 59 mg/dL 03/12/16 Unknown CSF Total Protein 48 mg/dL 03/12/16 Unknown JAROD Screen Negative (Negative) 03/17/16 23:50 Blood Type B POSITIVE 03/19/16 09:30 Antibody Screen Negative 03/19/16 09:30 Crossmatch See Detail 03/19/16 09:30
[2016-03-23] MEDS: FOLVITE PO SCH (09:06)
[2016-03-23] MEDS: VITAMIN B-1 FEEDTUBE SCH (09:06)
--- NOTE | 2016-03-23 09:28 | Progress Note ---
Assessment and Plan Impression: Acute kidney injury secondary to prerenal azotemia vs obstructive uropathy --Renal u/s: right hydronephrosis Acute hypoxic respiratory failure Ecoli UTI Hypokalemia Metabolic acidosis - resolved Anemia Leukocytosis Plan: Renal function has improved - SCr 0.6mg/dL Gonzalez catheter in place Empiric abx per primary team Monitor SCr and volume status closely Strict I/O Avoid potential nephrotoxins Sister at bedside - updated Subjective Date of service: 03/23/16 Principal diagnosis: AMS/dysphagia/malnutrition Interval history: No acute events overnight. Objective - Vital Signs Vital signs: Vital Signs - 12hr 03/22/16 03/22/16 03/22/16 21:58 22:00 22:02 Temperature Pulse Rate 88 90 91 H Pulse Rate [ Anterior Bilateral Throughout] Pulse Rate [ From Monitor] Respiratory 13 15 18 Rate Respiratory Rate [Anterior Bilateral Throughout] Blood Pressure 113/66 113/66 132/87 O2 Sat by Pulse 100 99 98 Oximetry 03/22/16 03/23/16 03/23/16 23:00 00:00 01:00 Temperature Pulse Rate 89 91 H 87 Pulse Rate [ Anterior Bilateral Throughout] Pulse Rate [ 80 From Monitor] Respiratory 18 17 17 Rate Respiratory Rate [Anterior Bilateral Throughout] Blood Pressure 141/79 141/79 133/65 O2 Sat by Pulse 99 100 Oximetry 03/23/16 03/23/16 03/23/16 01:01 01:50 02:00 Temperature 98.9 F Pulse Rate 88 86 Pulse Rate [ Anterior Bilateral Throughout] Pulse Rate [ From Monitor] Respiratory 17 13 Rate Respiratory Rate [Anterior Bilateral Throughout] Blood Pressure 133/65 133/65 O2 Sat by Pulse 100 100 Oximetry 03/23/16 03/23/16 03/23/16 02:28 03:00 04:00 Temperature Pulse Rate 79 87 83 Pulse Rate [ Anterior Bilateral Throughout] Pulse Rate [ 87 From Monitor] Respiratory 14 16 15 Rate Respiratory Rate [Anterior Bilateral Throughout] Blood Pressure 137/81 137/81 147/74 O2 Sat by Pulse 100 100 100 Oximetry 03/23/16 03/23/16 03/23/16 04:16 04:21 05:00 Temperature 98.4 F Pulse Rate 87 86 Pulse Rate [ Anterior Bilateral Throughout] Pulse Rate [ From Monitor] Respiratory 17 14 Rate Respiratory Rate [Anterior Bilateral Throughout] Blood Pressure 111/68 126/72 O2 Sat by Pulse 100 100 Oximetry 03/23/16 03/23/16 03/23/16 05:46 06:00 06:48 Temperature Pulse Rate 90 82 92 H Pulse Rate [ Anterior Bilateral Throughout] Pulse Rate [ From Monitor] Respiratory 16 13 20 Rate Respiratory Rate [Anterior Bilateral Throughout] Blood Pressure 126/72 119/71 119/71 O2 Sat by Pulse 100 100 100 Oximetry 03/23/16 03/23/16 03/23/16 07:00 07:04 07:39 Temperature Pulse Rate 90 91 H Pulse Rate [ 91 H Anterior Bilateral Throughout] Pulse Rate [ From Monitor] Respiratory 12 18 Rate Respiratory 20 Rate [Anterior Bilateral Throughout] Blood Pressure 119/71 98/82 O2 Sat by Pulse 100 100 Oximetry 03/23/16 03/23/16 07:40 07:46 Temperature Pulse Rate Pulse Rate [ 94 H Anterior Bilateral Throughout] Pulse Rate [ From Monitor] Respiratory Rate Respiratory 20 Rate [Anterior Bilateral Throughout] Blood Pressure O2 Sat by Pulse 96 Oximetry - General Appearance General appearance: well-developed, frail EENT: ATNC Respiratory: Present: Clear to Ascultation Cardiology: regular, S1S2 Gastrointestinal: normal, no tenderness, no distended Integumentary: no rash Neurologic: other (lethargic) Musculoskeletal: other (no edema) Psychiatric: cooperative - Lab 03/24/16 06:44 03/24/16 06:44 Most recent lab results Calcium 6.6 mg/dL (8.4-10.2) L 03/23/16 04:00 Phosphorus 4.6 mg/dL (2.5-4.5) H 03/21/16 04:45 Magnesium 1.6 mg/dL (1.7-2.3) L 03/21/16 04:45
--- NOTE | 2016-03-23 10:18 | Progress Note ---
Assessment and Plan AMS. Little changes. Brain CT and ammonia levels negative. Prior CSF evaluation negative also Sepsis,high WBC. Completing ABX. UC abnormal previously Acute renal failure electrolyte imbalance acute respiratory failure bilateral pleural effusions left and right sided hydronephrosis Recommendations Continie ABX Monitor neuro status neuro f/u Subjective Date of service: 03/23/16 Principal diagnosis: AMS/dysphagia/malnutrition Interval history: Confused Objective Vital Signs - 12hr 03/22/16 03/23/16 03/23/16 23:00 00:00 01:00 Temperature Pulse Rate 89 91 H 87 Pulse Rate [ Anterior Bilateral Throughout] Pulse Rate [ 80 From Monitor] Respiratory 18 17 17 Rate Respiratory Rate [Anterior Bilateral Throughout] Blood Pressure 141/79 141/79 133/65 O2 Sat by Pulse 99 100 Oximetry 03/23/16 03/23/16 03/23/16 01:01 01:50 02:00 Temperature 98.9 F Pulse Rate 88 86 Pulse Rate [ Anterior Bilateral Throughout] Pulse Rate [ From Monitor] Respiratory 17 13 Rate Respiratory Rate [Anterior Bilateral Throughout] Blood Pressure 133/65 133/65 O2 Sat by Pulse 100 100 Oximetry 03/23/16 03/23/16 03/23/16 02:28 03:00 04:00 Temperature Pulse Rate 79 87 83 Pulse Rate [ Anterior Bilateral Throughout] Pulse Rate [ 87 From Monitor] Respiratory 14 16 15 Rate Respiratory Rate [Anterior Bilateral Throughout] Blood Pressure 137/81 137/81 147/74 O2 Sat by Pulse 100 100 100 Oximetry 03/23/16 03/23/16 03/23/16 04:16 04:21 05:00 Temperature 98.4 F Pulse Rate 87 86 Pulse Rate [ Anterior Bilateral Throughout] Pulse Rate [ From Monitor] Respiratory 17 14 Rate Respiratory Rate [Anterior Bilateral Throughout] Blood Pressure 111/68 126/72 O2 Sat by Pulse 100 100 Oximetry 03/23/16 03/23/16 03/23/16 05:46 06:00 06:48 Temperature Pulse Rate 90 82 92 H Pulse Rate [ Anterior Bilateral Throughout] Pulse Rate [ From Monitor] Respiratory 16 13 20 Rate Respiratory Rate [Anterior Bilateral Throughout] Blood Pressure 126/72 119/71 119/71 O2 Sat by Pulse 100 100 100 Oximetry 03/23/16 03/23/16 03/23/16 07:00 07:04 07:39 Temperature Pulse Rate 90 91 H Pulse Rate [ 91 H Anterior Bilateral Throughout] Pulse Rate [ From Monitor] Respiratory 12 18 Rate Respiratory 20 Rate [Anterior Bilateral Throughout] Blood Pressure 119/71 98/82 O2 Sat by Pulse 100 100 Oximetry 03/23/16 03/23/16 07:40 07:46 Temperature Pulse Rate Pulse Rate [ 94 H Anterior Bilateral Throughout] Pulse Rate [ From Monitor] Respiratory Rate Respiratory 20 Rate [Anterior Bilateral Throughout] Blood Pressure O2 Sat by Pulse 96 Oximetry Constitutional: alert, other (confused) Eyes: icteric ENT: oropharynx dry Neck: supple Effort: mildly labored Ascultation: Bilateral: clear, diminished breath sounds (base) Percussion: Bilateral: not dull Cardiovascular: regular rate and rhythm Gastrointestinal: normoactive bowel sounds, soft, non-tender Extremities: cool Neurologic: pupils equal and round, unable to assess, other (appears non focal grossly but difficult to assess, non cooperative) CBC and BMP: 03/23/16 07:00 03/23/16 04:00 ABG, PT/INR, D-dimer: ABG POC ABG pH 7.365 (7.35-7.45) 03/20/16 21:00 POC ABG pCO2 25.9 (35-45) L 03/20/16 21:00 POC ABG pO2 90 (80-105) 03/20/16 21:00 POC ABG HCO3 14.8 03/20/16 21:00 POC ABG Total CO2 16 03/20/16 21:00 POC ABG O2 Sat 97 03/20/16 21:00 PT/INR, D-dimer PT 13.0 Sec. (12.2-14.9) 03/12/16 09:50 INR 0.99 (0.87-1.13) 03/12/16 09:50 Abnormal lab findings: Abnormal Labs 03/03/16 03/03/16 03/04/16 15:47 15:47 05:14 WBC 19.2 H 23.1 H RBC 3.64 L Hgb Hct MCV RDW 16.5 H 16.6 H Plt Count 449 H Lymph % (Auto) [place] % (Auto) [place] # Eos # Seg Neutrophils % Seg Neuts % (Manual) Lymphocytes % (Manual) Monocytes % (Manual) Seg Neutrophils # Seg Neutrophils # Man Lymphocytes # (Manual) Monocytes # (Manual) Eosinophils # (Manual) APTT POC ABG pH POC ABG pCO2 Sodium Potassium 2.8 L* Chloride 96.5 L Carbon Dioxide 20 L BUN Creatinine 0.6 L Glucose 139 H POC Glucose Uric Acid Calcium Phosphorus Magnesium Total Bilirubin Ammonia Total Protein Albumin Urine WBC (Auto) Crossmatch 03/04/16 03/04/16 03/04/16 05:14 09:01 19:38 WBC RBC Hgb Hct MCV RDW Plt Count Lymph % (Auto) [place] % (Auto) [place] # Eos # Seg Neutrophils % Seg Neuts % (Manual) Lymphocytes % (Manual) Monocytes % (Manual) Seg Neutrophils # Seg Neutrophils # Man Lymphocytes # (Manual) Monocytes # (Manual) Eosinophils # (Manual) APTT POC ABG pH POC ABG pCO2 Sodium 135 L Potassium 3.3 L Chloride 95.7 L Carbon Dioxide 19 L BUN Creatinine Glucose 130 H POC Glucose Uric Acid Calcium 8.0 L Phosphorus 1.4 L Magnesium 1.0 L Total Bilirubin 1.9 H Ammonia 95.0 H Total Protein Albumin 3.0 L Urine WBC (Auto) Crossmatch 03/05/16 03/05/16 03/05/16 07:39 07:39 17:59 WBC 20.3 H RBC 3.50 L Hgb Hct MCV 98 H RDW 16.1 H Plt Count Lymph % (Auto) [place] % (Auto) [place] # Eos # Seg Neutrophils % Seg Neuts % (Manual) Lymphocytes % (Manual) Monocytes % (Manual) Seg Neutrophils # Seg Neutrophils # Man Lymphocytes # (Manual) Monocytes # (Manual) Eosinophils # (Manual) APTT POC ABG pH POC ABG pCO2 Sodium Potassium 2.7 L* 3.2 L Chloride Carbon Dioxide 19 L 18 L BUN Creatinine 1.4 H D 1.4 H Glucose 131 H POC Glucose Uric Acid Calcium 7.6 L 7.3 L Phosphorus 6.7 H D Magnesium 2.6 H Total Bilirubin 1.4 H Ammonia Total Protein 5.9 L Albumin 2.4 L Urine WBC (Auto) Crossmatch 03/06/16 03/06/16 03/06/16 09:54 09:54 18:07 WBC 22.2 H RBC 3.19 L Hgb 9.9 L Hct MCV 98 H RDW 16.8 H Plt Count Lymph % (Auto) [place] % (Auto) [place] # Eos # Seg Neutrophils % Seg Neuts % (Manual) Lymphocytes % (Manual) Monocytes % (Manual) Seg Neutrophils # Seg Neutrophils # Man Lymphocytes # (Manual) Monocytes # (Manual) Eosinophils # (Manual) APTT POC ABG pH POC ABG pCO2 Sodium 150 H D Potassium 2.8 L* 2.8 L* Chloride 113.5 H Carbon Dioxide 16 L 16 L BUN Creatinine Glucose 137 H 106 H POC Glucose Uric Acid Calcium 7.4 L 7.7 L Phosphorus Magnesium Total Bilirubin Ammonia Total Protein Albumin Urine WBC (Auto) Crossmatch 03/07/16 03/07/16 03/07/16 04:53 04:53 05:43 WBC 19.7 H RBC 3.20 L Hgb 9.9 L Hct MCV RDW 16.6 H Plt Count Lymph % (Auto) [place] % (Auto) [place] # Eos # Seg Neutrophils % Seg Neuts % (Manual) Lymphocytes % (Manual) Monocytes % (Manual) Seg Neutrophils # Seg Neutrophils # Man Lymphocytes # (Manual) Monocytes # (Manual) Eosinophils # (Manual) APTT POC ABG pH POC ABG pCO2 Sodium Potassium 2.9 L* Chloride 114.1 H Carbon Dioxide 19 L BUN Creatinine Glucose 140 H POC Glucose 143 H Uric Acid Calcium 7.8 L Phosphorus Magnesium Total Bilirubin Ammonia Total Protein Albumin Urine WBC (Auto) Crossmatch 03/07/16 03/08/16 03/08/16 22:20 05:09 05:09 WBC 32.2 H RBC 3.18 L Hgb 10.0 L Hct MCV RDW 16.8 H Plt Count Lymph % (Auto) [place] % (Auto) [place] # Eos # Seg Neutrophils % Seg Neuts % (Manual) Lymphocytes % (Manual) Monocytes % (Manual) Seg Neutrophils # Seg Neutrophils # Man Lymphocytes # (Manual) Monocytes # (Manual) Eosinophils # (Manual) APTT POC ABG pH POC ABG pCO2 Sodium 155 H D Potassium 6.3 H* D 6.1 H* Chloride Carbon Dioxide 18 L BUN Creatinine 1.6 H D Glucose 213 H POC Glucose Uric Acid Calcium Phosphorus Magnesium Total Bilirubin Ammonia Total Protein Albumin Urine WBC (Auto) Crossmatch 03/08/16 03/08/16 03/08/16 09:11 16:28 17:27 WBC RBC Hgb Hct MCV RDW Plt Count Lymph % (Auto) [place] % (Auto) [place] # Eos # Seg Neutrophils % Seg Neuts % (Manual) Lymphocytes % (Manual) Monocytes % (Manual) Seg Neutrophils # Seg Neutrophils # Man Lymphocytes # (Manual) Monocytes # (Manual) Eosinophils # (Manual) APTT POC ABG pH POC ABG pCO2 Sodium 156 H Potassium Chloride 126.2 H Carbon Dioxide 19 L BUN Creatinine 1.8 H Glucose 175 H POC Glucose 204 H 130 H Uric Acid Calcium Phosphorus Magnesium Total Bilirubin Ammonia Total Protein Albumin Urine WBC (Auto) Crossmatch 03/08/16 03/09/16 03/09/16 22:06 05:47 08:00 WBC 29.9 H RBC 2.93 L Hgb 9.0 L Hct 28.4 L MCV RDW 17.4 H Plt Count Lymph % (Auto) [place] % (Auto) [place] # Eos # Seg Neutrophils % Seg Neuts % (Manual) Lymphocytes % (Manual) Monocytes % (Manual) Seg Neutrophils # Seg Neutrophils # Man Lymphocytes # (Manual) Monocytes # (Manual) Eosinophils # (Manual) APTT POC ABG pH POC ABG pCO2 Sodium Potassium Chloride Carbon Dioxide BUN Creatinine Glucose POC Glucose 192 H 206 H Uric Acid Calcium Phosphorus Magnesium Total Bilirubin Ammonia Total Protein Albumin Urine WBC (Auto) Crossmatch 03/09/16 03/09/16 03/09/16 08:00 11:33 16:03 WBC RBC Hgb Hct MCV RDW Plt Count Lymph % (Auto) [place] % (Auto) [place] # Eos # Seg Neutrophils % Seg Neuts % (Manual) Lymphocytes % (Manual) Monocytes % (Manual) Seg Neutrophils # Seg Neutrophils # Man Lymphocytes # (Manual) Monocytes # (Manual) Eosinophils # (Manual) APTT POC ABG pH POC ABG pCO2 Sodium 154 H Potassium Chloride 123.0 H Carbon Dioxide 21 L BUN 18 H Creatinine 1.9 H Glucose 179 H POC Glucose 152 H 130 H Uric Acid Calcium 8.2 L Phosphorus Magnesium Total Bilirubin Ammonia Total Protein Albumin Urine WBC (Auto) Crossmatch 03/10/16 03/10/16 03/10/16 06:16 11:53 17:22 WBC RBC Hgb Hct MCV RDW Plt Count Lymph % (Auto) [place] % (Auto) [place] # Eos # Seg Neutrophils % Seg Neuts % (Manual) Lymphocytes % (Manual) Monocytes % (Manual) Seg Neutrophils # Seg Neutrophils # Man Lymphocytes # (Manual) Monocytes # (Manual) Eosinophils # (Manual) APTT POC ABG pH POC ABG pCO2 Sodium Potassium Chloride Carbon Dioxide BUN Creatinine Glucose POC Glucose 170 H 141 H 159 H Uric Acid Calcium Phosphorus Magnesium Total Bilirubin Ammonia Total Protein Albumin Urine WBC (Auto) Crossmatch 03/10/16 03/10/16 03/10/16 Unknown Unknown Unknown WBC 22.8 H RBC 2.70 L Hgb 8.7 L Hct 26.4 L MCV 98 H RDW 17.1 H Plt Count Lymph % (Auto) [place] % (Auto) [place] # Eos # Seg Neutrophils % Seg Neuts % (Manual) 78.0 H Lymphocytes % (Manual) 12.0 L Monocytes % (Manual) Seg Neutrophils # Seg Neutrophils # Man 17.8 H Lymphocytes # (Manual) Monocytes # (Manual) 1.1 H Eosinophils # (Manual) 0.9 H APTT POC ABG pH POC ABG pCO2 Sodium 147 H Potassium Chloride 115.0 H Carbon Dioxide 20 L BUN 22 H Creatinine 1.6 H Glucose 142 H POC Glucose Uric Acid Calcium 7.7 L Phosphorus Magnesium 1.5 L Total Bilirubin Ammonia Total Protein Albumin Urine WBC (Auto) Crossmatch 03/11/16 03/11/16 03/11/16 00:11 00:50 06:15 WBC 24.3 H RBC 2.93 L Hgb 9.0 L Hct 28.1 L MCV RDW 17.4 H Plt Count Lymph % (Auto) [place] % (Auto) [place] # Eos # Seg Neutrophils % Seg Neuts % (Manual) 74.0 H Lymphocytes % (Manual) 10.0 L Monocytes % (Manual) 8.0 H Seg Neutrophils # Seg Neutrophils # Man 18.0 H Lymphocytes # (Manual) Monocytes # (Manual) 1.9 H Eosinophils # (Manual) 1.0 H APTT POC ABG pH POC ABG pCO2 Sodium Potassium Chloride Carbon Dioxide BUN Creatinine Glucose POC Glucose 143 H 136 H Uric Acid Calcium Phosphorus Magnesium Total Bilirubin Ammonia Total Protein Albumin Urine WBC (Auto) Crossmatch 03/11/16 03/12/16 03/12/16 07:24 09:50 12:10 WBC RBC Hgb Hct MCV RDW Plt Count Lymph % (Auto) [place] % (Auto) [place] # Eos # Seg Neutrophils % Seg Neuts % (Manual) Lymphocytes % (Manual) Monocytes % (Manual) Seg Neutrophils # Seg Neutrophils # Man Lymphocytes # (Manual) Monocytes # (Manual) Eosinophils # (Manual) APTT 38.8 H POC ABG pH POC ABG pCO2 Sodium 135 L D Potassium Chloride Carbon Dioxide BUN 27 H Creatinine 1.8 H Glucose 136 H POC Glucose 111 H Uric Acid Calcium 7.5 L Phosphorus Magnesium 1.4 L Total Bilirubin Ammonia Total Protein Albumin Urine WBC (Auto) Crossmatch 03/12/16 03/12/16 03/13/16 16:39 21:45 05:00 WBC 19.2 H RBC 2.68 L Hgb 8.5 L Hct 25.7 L MCV RDW 17.4 H Plt Count Lymph % (Auto) 9.3 L [place] % (Auto) 8.7 H [place] # 1.7 H Eos # 0.5 H Seg Neutrophils % 78.6 H Seg Neuts % (Manual) Lymphocytes % (Manual) Monocytes % (Manual) Seg Neutrophils # 15.1 H Seg Neutrophils # Man Lymphocytes # (Manual) Monocytes # (Manual) Eosinophils # (Manual) APTT POC ABG pH POC ABG pCO2 Sodium Potassium Chloride Carbon Dioxide BUN Creatinine Glucose POC Glucose 112 H 124 H Uric Acid Calcium Phosphorus Magnesium Total Bilirubin Ammonia Total Protein Albumin Urine WBC (Auto) Crossmatch 03/13/16 03/13/16 03/14/16 05:00 16:19 06:21 WBC RBC Hgb Hct MCV RDW Plt Count Lymph % (Auto) [place] % (Auto) [place] # Eos # Seg Neutrophils % Seg Neuts % (Manual) Lymphocytes % (Manual) Monocytes % (Manual) Seg Neutrophils # Seg Neutrophils # Man Lymphocytes # (Manual) Monocytes # (Manual) Eosinophils # (Manual) APTT POC ABG pH POC ABG pCO2 Sodium Potassium Chloride Carbon Dioxide 20 L BUN 31 H Creatinine 2.1 H Glucose POC Glucose 61 L 125 H Uric Acid Calcium 7.8 L Phosphorus Magnesium 3.1 H Total Bilirubin Ammonia Total Protein Albumin Urine WBC (Auto) Crossmatch 03/14/16 03/14/16 03/15/16 13:48 18:34 00:02 WBC RBC Hgb Hct MCV RDW Plt Count Lymph % (Auto) [place] % (Auto) [place] # Eos # Seg Neutrophils % Seg Neuts % (Manual) Lymphocytes % (Manual) Monocytes % (Manual) Seg Neutrophils # Seg Neutrophils # Man Lymphocytes # (Manual) Monocytes # (Manual) Eosinophils # (Manual) APTT POC ABG pH POC ABG pCO2 Sodium Potassium Chloride Carbon Dioxide BUN Creatinine Glucose POC Glucose 107 H 124 H 138 H Uric Acid Calcium Phosphorus Magnesium Total Bilirubin Ammonia Total Protein Albumin Urine WBC (Auto) Crossmatch 03/15/16 03/15/1617 06:40 06:40 07:23 WBC 13.5 H RBC 2.32 L Hgb 7.5 L Hct 22.3 L MCV RDW 17.5 H Plt Count Lymph % (Auto) 12.8 L [place] % (Auto) 8.2 H [place] # 1.1 H Eos # Seg Neutrophils % 75.5 H Seg Neuts % (Manual) Lymphocytes % (Manual) Monocytes % (Manual) Seg Neutrophils # 10.2 H Seg Neutrophils # Man Lymphocytes # (Manual) Monocytes # (Manual) Eosinophils # (Manual) APTT POC ABG pH POC ABG pCO2 Sodium Potassium Chloride 110.8 H Carbon Dioxide 16 L BUN 28 H Creatinine 2.4 H Glucose POC Glucose 112 H Uric Acid Calcium 7.0 L Phosphorus Magnesium Total Bilirubin Ammonia Total Protein Albumin Urine WBC (Auto) Crossmatch 03/15/16 03/15/16 03/15/16 11:46 16:32 20:52 WBC RBC Hgb Hct MCV RDW Plt Count Lymph % (Auto) [place] % (Auto) [place] # Eos # Seg Neutrophils % Seg Neuts % (Manual) Lymphocytes % (Manual) Monocytes % (Manual) Seg Neutrophils # Seg Neutrophils # Man Lymphocytes # (Manual) Monocytes # (Manual) Eosinophils # (Manual) APTT POC ABG pH POC ABG pCO2 Sodium Potassium Chloride Carbon Dioxide BUN Creatinine Glucose POC Glucose 138 H 127 H 118 H Uric Acid Calcium Phosphorus Magnesium Total Bilirubin Ammonia Total Protein Albumin Urine WBC (Auto) Crossmatch 03/16/16 03/16/16 03/16/16 06:01 06:01 06:24 WBC 27.8 H RBC 2.41 L Hgb 7.4 L Hct 23.2 L MCV RDW 18.2 H Plt Count Lymph % (Auto) [place] % (Auto) [place] # Eos # Seg Neutrophils % Seg Neuts % (Manual) 91.5 H Lymphocytes % (Manual) 2.5 L Monocytes % (Manual) Seg Neutrophils # Seg Neutrophils # Man 25.4 H Lymphocytes # (Manual) 0.7 L Monocytes # (Manual) Eosinophils # (Manual) APTT POC ABG pH POC ABG pCO2 Sodium Potassium Chloride 113.0 H Carbon Dioxide 15 L BUN 30 H Creatinine 2.6 H Glucose 130 H POC Glucose 159 H Uric Acid Calcium 6.8 L Phosphorus Magnesium Total Bilirubin Ammonia Total Protein Albumin Urine WBC (Auto) Crossmatch 03/16/16 03/16/16 03/16/16 11:34 16:37 23:46 WBC RBC Hgb Hct MCV RDW Plt Count Lymph % (Auto) [place] % (Auto) [place] # Eos # Seg Neutrophils % Seg Neuts % (Manual) Lymphocytes % (Manual) Monocytes % (Manual) Seg Neutrophils # Seg Neutrophils # Man Lymphocytes # (Manual) Monocytes # (Manual) Eosinophils # (Manual) APTT POC ABG pH POC ABG pCO2 Sodium Potassium Chloride Carbon Dioxide BUN Creatinine Glucose POC Glucose 164 H 109 H 114 H Uric Acid Calcium Phosphorus Magnesium Total Bilirubin Ammonia Total Protein Albumin Urine WBC (Auto) Crossmatch 03/17/16 03/17/16 03/17/16 11:33 22:11 23:50 WBC RBC Hgb Hct MCV RDW Plt Count Lymph % (Auto) [place] % (Auto) [place] # Eos # Seg Neutrophils % Seg Neuts % (Manual) Lymphocytes % (Manual) Monocytes % (Manual) Seg Neutrophils # Seg Neutrophils # Man Lymphocytes # (Manual) Monocytes # (Manual) Eosinophils # (Manual) APTT POC ABG pH 7.319 L POC ABG pCO2 28.6 L Sodium Potassium Chloride 111.6 H Carbon Dioxide 16 L BUN 34 H Creatinine 2.7 H Glucose 115 H POC Glucose 117 H Uric Acid 8.4 H Calcium 7.4 L Phosphorus Magnesium Total Bilirubin Ammonia Total Protein Albumin Urine WBC (Auto) Crossmatch 03/17/16 03/18/16 03/19/16 23:50 11:11 05:20 WBC 18.2 H RBC 2.11 L Hgb 6.7 L Hct 20.1 L MCV RDW 17.5 H Plt Count Lymph % (Auto) [place] % (Auto) [place] # Eos # Seg Neutrophils % Seg Neuts % (Manual) Lymphocytes % (Manual) Monocytes % (Manual) Seg Neutrophils # Seg Neutrophils # Man Lymphocytes # (Manual) Monocytes # (Manual) Eosinophils # (Manual) APTT POC ABG pH 7.320 L POC ABG pCO2 29.9 L Sodium Potassium Chloride Carbon Dioxide BUN Creatinine Glucose POC Glucose 124 H Uric Acid Calcium Phosphorus Magnesium Total Bilirubin Ammonia Total Protein Albumin Urine WBC (Auto) Crossmatch 03/19/16 03/19/16 03/19/16 05:20 06:11 09:30 WBC RBC Hgb Hct MCV RDW Plt Count Lymph % (Auto) [place] % (Auto) [place] # Eos # Seg Neutrophils % Seg Neuts % (Manual) Lymphocytes % (Manual) Monocytes % (Manual) Seg Neutrophils # Seg Neutrophils # Man Lymphocytes # (Manual) Monocytes # (Manual) Eosinophils # (Manual) APTT POC ABG pH POC ABG pCO2 Sodium Potassium Chloride 114.1 H Carbon Dioxide 16 L BUN 32 H Creatinine 2.2 H Glucose POC Glucose 63 L Uric Acid Calcium 7.7 L Phosphorus Magnesium Total Bilirubin Ammonia Total Protein Albumin Urine WBC (Auto) Crossmatch See Detail 03/19/16 03/19/16 03/19/16 12:14 16:30 23:57 WBC RBC Hgb Hct MCV RDW Plt Count Lymph % (Auto) [place] % (Auto) [place] # Eos # Seg Neutrophils % Seg Neuts % (Manual) Lymphocytes % (Manual) Monocytes % (Manual) Seg Neutrophils # Seg Neutrophils # Man Lymphocytes # (Manual) Monocytes # (Manual) Eosinophils # (Manual) APTT POC ABG pH POC ABG pCO2 Sodium Potassium Chloride Carbon Dioxide BUN Creatinine Glucose POC Glucose 138 H 133 H 190 H Uric Acid Calcium Phosphorus Magnesium Total Bilirubin Ammonia Total Protein Albumin Urine WBC (Auto) Crossmatch 03/20/16 03/20/16 03/20/16 06:38 11:52 15:36 WBC RBC Hgb Hct MCV RDW Plt Count Lymph % (Auto) [place] % (Auto) [place] # Eos # Seg Neutrophils % Seg Neuts % (Manual) Lymphocytes % (Manual) Monocytes % (Manual) Seg Neutrophils # Seg Neutrophils # Man Lymphocytes # (Manual) Monocytes # (Manual) Eosinophils # (Manual) APTT POC ABG pH POC ABG pCO2 Sodium Potassium Chloride Carbon Dioxide BUN Creatinine Glucose POC Glucose 163 H 138 H 151 H Uric Acid Calcium Phosphorus Magnesium Total Bilirubin Ammonia Total Protein Albumin Urine WBC (Auto) Crossmatch 03/20/16 03/20/16 03/20/16 21:00 23:55 Unknown WBC 30.1 H RBC 3.23 L Hgb Hct 29.6 L D MCV RDW 16.2 H Plt Count Lymph % (Auto) [place] % (Auto) [place] # Eos # Seg Neutrophils % Seg Neuts % (Manual) Lymphocytes % (Manual) Monocytes % (Manual) Seg Neutrophils # Seg Neutrophils # Man Lymphocytes # (Manual) Monocytes # (Manual) Eosinophils # (Manual) APTT POC ABG pH POC ABG pCO2 25.9 L Sodium Potassium Chloride Carbon Dioxide BUN Creatinine Glucose POC Glucose 167 H Uric Acid Calcium Phosphorus Magnesium Total Bilirubin Ammonia Total Protein Albumin Urine WBC (Auto) Crossmatch 03/20/16 03/21/16 03/21/16 Unknown 04:45 04:45 WBC 28.0 H RBC 3.37 L Hgb Hct MCV RDW 16.4 H Plt Count Lymph % (Auto) [place] % (Auto) [place] # Eos # Seg Neutrophils % Seg Neuts % (Manual) Lymphocytes % (Manual) Monocytes % (Manual) Seg Neutrophils # Seg Neutrophils # Man Lymphocytes # (Manual) Monocytes # (Manual) Eosinophils # (Manual) APTT POC ABG pH POC ABG pCO2 Sodium Potassium 5.1 H Chloride 110.4 H Carbon Dioxide 14 L BUN 34 H 37 H Creatinine 2.9 H 3.2 H Glucose 131 H 124 H POC Glucose Uric Acid Calcium 7.5 L 7.1 L Phosphorus 4.6 H Magnesium 1.6 L Total Bilirubin Ammonia Total Protein Albumin Urine WBC (Auto) Crossmatch 03/21/16 03/21/16 03/21/16 05:52 11:23 17:48 WBC RBC Hgb Hct MCV RDW Plt Count Lymph % (Auto) [place] % (Auto) [place] # Eos # Seg Neutrophils % Seg Neuts % (Manual) Lymphocytes % (Manual) Monocytes % (Manual) Seg Neutrophils # Seg Neutrophils # Man Lymphocytes # (Manual) Monocytes # (Manual) Eosinophils # (Manual) APTT POC ABG pH POC ABG pCO2 Sodium Potassium Chloride Carbon Dioxide BUN Creatinine Glucose POC Glucose 136 H 144 H 149 H Uric Acid Calcium Phosphorus Magnesium Total Bilirubin Ammonia Total Protein Albumin Urine WBC (Auto) Crossmatch 03/21/16 03/22/16 03/22/16 22:05 00:44 04:30 WBC 23.2 H RBC 3.38 L Hgb Hct MCV RDW 16.1 H Plt Count Lymph % (Auto) [place] % (Auto) [place] # Eos # Seg Neutrophils % Seg Neuts % (Manual) Lymphocytes % (Manual) Monocytes % (Manual) Seg Neutrophils # Seg Neutrophils # Man Lymphocytes # (Manual) Monocytes # (Manual) Eosinophils # (Manual) APTT POC ABG pH POC ABG pCO2 Sodium Potassium Chloride Carbon Dioxide BUN Creatinine Glucose POC Glucose 129 H 121 H Uric Acid Calcium Phosphorus Magnesium Total Bilirubin Ammonia Total Protein Albumin Urine WBC (Auto) Crossmatch 03/22/16 03/22/16 03/22/16 04:30 06:17 17:47 WBC RBC Hgb Hct MCV RDW Plt Count Lymph % (Auto) [place] % (Auto) [place] # Eos # Seg Neutrophils % Seg Neuts % (Manual) Lymphocytes % (Manual) Monocytes % (Manual) Seg Neutrophils # Seg Neutrophils # Man Lymphocytes # (Manual) Monocytes # (Manual) Eosinophils # (Manual) APTT POC ABG pH POC ABG pCO2 Sodium Potassium 3.0 L D Chloride Carbon Dioxide BUN 27 H Creatinine 1.5 H D Glucose 124 H POC Glucose 120 H Uric Acid Calcium 6.9 L Phosphorus Magnesium Total Bilirubin Ammonia Total Protein Albumin Urine WBC (Auto) 138.0 H Crossmatch 03/23/16 03/23/16 04:00 07:00 WBC 22.2 H RBC 3.59 L Hgb Hct MCV RDW 15.8 H Plt Count Lymph % (Auto) [place] % (Auto) [place] # Eos # Seg Neutrophils % Seg Neuts % (Manual) Lymphocytes % (Manual) Monocytes % (Manual) Seg Neutrophils # Seg Neutrophils # Man Lymphocytes # (Manual) Monocytes # (Manual) Eosinophils # (Manual) APTT POC ABG pH POC ABG pCO2 Sodium Potassium 3.1 L Chloride Carbon Dioxide BUN Creatinine Glucose 111 H POC Glucose Uric Acid Calcium 6.6 L Phosphorus Magnesium Total Bilirubin Ammonia Total Protein Albumin Urine WBC (Auto) Crossmatch
--- NOTE | 2016-03-23 10:47 | Progress Note ---
Assessment and Plan Current antibiotics: None Previous antibiotics: Zosyn 4.5 grams IV q8h 03/03-03/07 Levaquin 750 mg IV q24h 03/03-03/06 ASSESSMENT: Edith Coelho is a 60-year-old female with hypertension, obstructive sleep apnea and COPD who was admitted to [facility] on 03/02/16 with a one-month history of decreased appetite and increasing weakness. She has had a persistent leukocytosis. Problem list: 1. Leukocytosis -Likely reactive secondary to whatever is causing her encephalopathy: ? ETOH withdrawal, etc. -Rule out infection although work up negative to date and no obvious source on exam -Rule out primary hematologic reason 2. AMS -Rule out toxic metabolic encephalopathy -Rule out ETOH withdrawal -Patient is still behaving as if there is some sort of neurologic etiology to her illness although none has been uncovered to date -MRI with no obvious abnormalities. -CSF normal although no serologies sent 3. Pyuria & previous urine culture growing E coli -Likely secondary to chronic Gonzalez and not urinary tract infection 4. MICAH -Resolved 5. Bilateral hydronephrosis -Seen on 03/21 CT scan -? Etiology although wonder if improved with her renal function now improving PLAN: 1. Continue to follow off of antibiotics 2. May need to consider bone marrow 3. Continued supportive measures 4. Will obtain renal ultrasounds and if hydronephrosis still present consider allergy evaluation 5. If patient does not clinically improve, may need to consider transfer to a facility where a thorough neurologic evaluation can be done Bayron Avitia MD [facility] Office: [phone] Subjective Date of service: 03/23/16 Principal diagnosis: AMS/dysphagia/malnutrition Interval history: Are asked to see Ms. Coelho again for "fever and urinary tract infection." She is well known to our service from earlier during this hospitalization (we signed off 03/15). She was transferred to the ICU on 03/21 with worsening renal failure and hyperkalemia. Currently she is actually more responsive than when I last saw her and albeit slurred speech follows commands appropriately and actually answers questions. She has no discernible complaints. Objective - Exam Narrative Exam: GENERAL: Well-developed, cachectic female who is in no acute distress but quite lethargic and does not follow commands. HEAD: Normocephalic. No lesions seen. EYES: Pupils are equal reactive to light and accommodation. There is no scleral icterus. Optic fundi are not examined. There is bilateral arcus senilis. EARS: Tympanic membranes are normal. THROAT: Oropharynx is normal with no evidence of oral candidiasis or pharyngitis. Poor dentition but no obvious dental infection seen. Some bleeding from the upper lip. NECK: Supple. No enlargement of the thyroid gland. No significant cervical lymphadenopathy. No jugular venous distention at 30. LUNGS: Clear with no adventitious sounds. HEART: Regular rate. S1 and S2 are normal. There are no murmurs, gallops, clicks or rubs heard. ABDOMEN: Soft, slightly distended and mildly, tender. Liver and spleen are not palpably enlarged or tender. No palpable masses. No ascites. Bowel sounds are normoactive. RECTAL: Not examined EXTREMITIES: No rash, peripheral lymphadenopathy, clubbing or edema. : Diaper in place. NEUROLOGIC: No focal findings. Lethargic. - Constitutional Vitals: Vital Signs Temp Pulse Resp BP Pulse Ox 98.4 F 94 H 20 98/82 96 03/23/16 04:21 03/23/16 07:46 03/23/16 07:46 03/23/16 07:04 03/23/16 07:40 Temperature -Last 24 Hours Temperature 98.4 F Temperature 98.9 F Temperature 98.3 F Temperature 98.1 F Temperature 97.8 F Afebrile since 03/21 - Labs CBC & Chem 7: 03/23/16 07:00 03/23/16 04:00 Labs: Abnormal lab results Laboratory Tests 03/22/16 17:47 Urine Urobilinogen < 2.0 Urine WBC (Auto) 138.0 H Urine RBC (Auto) > 182.0 Microbiology 03/21/16 15:31 Stool Stool Occult Blood (MURALI) - Final 03/12/16 Unknown Cerebral Spinal Fluid CSF Culture - Final 03/04/16 09:18 Peripheral/Venous Blood Culture - Final NO GROWTH AFTER 5 DAYS 03/04/16 09:01 Peripheral/Venous Blood Culture - Final NO GROWTH AFTER 5 DAYS 03/04/16 Unknown Urine,Clean Catch Urine Culture - Final Escherichia Coli Imagin/22: CT abdomen/pelvis: Bilateral hydronephrosis, moderate ascites and extensive anasarca, bilateral pleural effusions and bibasilar compressive atelectasis. 03/22: CT head normal
--- NOTE | 2016-03-23 17:36 | Consultation ---
History of Present Illness - Reason for Consult Consult date: 03/23/16 - History of Present Illness cc hydronephrosis 60 YO Female with HTN, OA, COPD, Nicotine Dependence presents to ED for evaluation. Pt is confused and unable to provide accurate history. Pt brought in from home with a chief complaint decreased appetite and weakness for the past month, as per the patients . The patient is not in the ED. Pt denies fever, chills, CP, Palpitations, NVD, or recent ill contacts. CTAP (03-21-16) bilat hydronephrosis pt with retention creatinine 1.5 - now 0.9 REPEAT CTAP today PENDING OF 5:30PM A/P BILAT HYDRONEPHROSIS AWAIT RESULTS OF CT MAY NEED CYSTO, VCUG, OR OBSERVATION Past History Past Medical History: hypertension, other (oa, nicotine dependence) Past Surgical History: hysterectomy, Other (rotator cuff surgery) Social history: , smoking. denies: alcohol abuse, prescription drug abuse Family history: hypertension Medications and Allergies Allergies Allergy/AdvReac Type Severity Reaction Status Date / Time No Known Allergies Allergy Verified 03/02/16 21:45 Home Medications Medication Instructions Recorded Confirmed Last Taken Type oxyCODONE /ACETAMINOPHEN [Percocet 1 tab PO Q6HR PRN #20 tablet 03/12/13 Unknown Rx 5/325 mg] Acetaminophen-Codeine #3 TAB 30 mg PO PRN 03/03/16 Unknown History FLUoxetine HCL [FLUoxetine] 20 mg PO DAILY 03/03/16 03/03/16 Unknown History Gabapentin 600 mg PO TID 03/03/16 03/03/16 Unknown History Ibuprofen 800 mg PO PRN 03/03/16 Unknown History Lisinopril/Hydrochlorothiazide 20 mg PO DAILY 03/03/16 03/03/16 Unknown History Naproxen TAB 500 mg PO BID 03/03/16 03/03/16 Unknown History Sulfamethoxazole/Trimethoprim 800 mg PO BID 03/03/16 03/03/16 Unknown History Symbicort 160-4.5 (Nf) 160 INHALATION BID 03/03/16 Unknown History hydrOXYZINE PAMOATE [hydrOXYzine 25 mg PO BID 03/03/16 03/03/16 Unknown History Pamoate] traZODone 100 mg PO QHS 03/03/16 03/03/16 Unknown History Active Meds: Active Medications Acetaminophen (Tylenol) 650 mg PO Q4H PRN PRN Reason: Pain MILD(1-3)/Fever >100.5/GILL Last Admin: 03/21/16 23:00 Dose: 650 mg Albuterol (Proventil) 2.5 mg IH Q6HRT PRN PRN Reason: Shortness Of Breath Last Admin: 03/18/16 11:17 Dose: 2.5 mg Lipase/Protease/Amylase (Pancreeva Dr 10,500 Unit) 1 each FEEDTUBE PRN PRN PRN Reason: For Clogged Feeding Tube Arformoterol Tartrate (Brovana Nebu) 15 mcg IH Q12HRT [facility] Last Admin: 03/23/16 07:38 Dose: 15 mcg Atenolol (Tenormin) 50 mg PO QDAY [facility] Last Admin: 03/22/16 12:42 Dose: 50 mg Budesonide (Pulmicort) 0.5 mg IH Q12HRT [facility] Last Admin: 03/23/16 07:38 Dose: 0.5 mg Clonidine HCl (Catapres) 0.1 mg PO Q4H PRN PRN Reason: For SBP>170 or DBP>110 Dextrose (D50w (25gm)) 50 ml IV PRN PRN PRN Reason: Hypoglycemia Last Admin: 03/19/16 07:20 Dose: 50 ml Folic Acid (Folvite) 1 mg PO QDAY [facility] Last Admin: 03/23/16 09:06 Dose: 1 mg Heparin Sodium (Porcine) (Heparin) 5,000 unit SUB-Q Q8HR [facility] Last Admin: 03/23/16 15:29 Dose: 5,000 unit Hydralazine HCl (Apresoline) 20 mg IV Q6H PRN PRN Reason: Blood Pressure Last Admin: 03/15/16 22:33 Dose: 20 mg Insulin Aspart (Novolog) 0 units SUB-Q Q6HR [facility] PRN Reason: Protocol Last Admin: 03/23/16 12:11 Dose: Not Given Potassium Chloride (Potassium Chloride) 40 meq FEEDTUBE Q4H [facility] Stop: 03/23/16 20:01 Simple Syrup (Simple Syrup) 15 ml FEEDTUBE PRN PRN PRN Reason: Hypoglycemia Simple Syrup (Simple Syrup) 30 ml FEEDTUBE PRN PRN PRN Reason: Hypoglycemia Sodium Bicarbonate (Sodium Bicarbonate) 325 mg FEEDTUBE PRN PRN PRN Reason: For Clogged Feeding Tube Thiamine HCl (Vitamin B-1) 100 mg FEEDTUBE QDAY PATT[facility] Last Admin: 03/23/16 09:06 Dose: 100 mg Exam - Constitutional Vitals: Temp Pulse Resp BP Pulse Ox 98.4 F 87 16 98/70 100 03/23/16 04:21 03/23/16 11:00 03/23/16 11:00 03/23/16 12:03 03/23/16 11:00 Results - Labs CBC & Chem 7: 03/23/16 07:00 03/23/16 04:00 Labs: Abnormal lab results 03/22/16 03/23/16 03/23/16 Range/Units 17:47 04:00 07:00 WBC 22.2 H (4.5-11.0) K/mm3 RBC 3.59 L (3.65-5.03) M/mm3 RDW 15.8 H (13.2-15.2) % Potassium 3.1 L (3.6-5.0) mmol/L Glucose 111 H (65-100) mg/dL Calcium 6.6 L (8.4-10.2) mg/dL Urine WBC (Auto) 138.0 H (0.0-6.0) /HPF
[2016-03-23] MEDS: TENORMIN PO SCH (18:38)
[2016-03-24] MEDS: NOVOLOG SUB-Q SCH ×4 (00:30→19:00)
--- NOTE | 2016-03-24 01:02 | Consultation ---
REASON FOR CONSULTATION: Hydronephrosis. REFERRING PHYSICIAN: Tirso Payne MD HISTORY OF PRESENT ILLNESS: This patient is a 60-year-old female presented to the Emergency Room with confusion, decreased appetite, weakness, and now is admitted for evaluation. PAST MEDICAL HISTORY: Hypertension. PAST SURGICAL HISTORY: Hysterectomy. SOCIAL HISTORY: She is . She is a smoker. ALLERGIES: No known drug allergies. Everything was taken per chart review. The patient was confused during the time of exam. MEDICATIONS: Tylenol 3, lisinopril, hydrochlorothiazide, trazodone. PHYSICAL EXAMINATION: GENERAL: Alert, not oriented at this time. VITAL SIGNS: BP 98/70, respirations 16, pulse 87, temperature 98.4. BACK: No CVA tenderness. ABDOMEN: Soft. Gonzalez catheter draining federica colored urine. LABORATORY DATA: Hemoglobin and hematocrit of 10 and 32 respectively, white count 22,000, platelets 301,000. BUN and creatinine 16 and 0.7 respectively. ASSESSMENT AND PLAN: Bilateral hydronephrosis on CT with renal insufficiency. Her renal insufficiency has improved with Gonzalez catheter placement. We would recommend repeat CT. If hydronephrosis is persistent, the patient may benefit from cystogram, followed by cystoscopy if needed. JOB# [id number] ISAIAH/CRISTIAN
[2016-03-24] MEDS: TYLENOL PO PRN ×3 (05:50→23:02)
[2016-03-24] MEDS: HEPARIN SUB-Q SCH ×3 (05:58→21:02)
[2016-03-24 06:48] LABS: Hematocrit 29.6 % (30.3-42.9); Hemoglobin 9.8 gm/dl (10.1-14.3); Mean Corpuscular HGB Conc 33 % (30-34); Mean Corpuscular Hemoglobin 31 pg (28-32); Mean Corpuscular Volume 92 fl (79-97); Platelet Count 290 K/mm3 (140-440); Red Blood Count 3.22 M/mm3 (3.65-5.03); Red Cell Distribution Width 15.8 % (13.2-15.2)
[2016-03-24 06:55] LABS: White Blood Count 25.1 K/mm3 (4.5-11.0)
[2016-03-24 07:13] LABS: Blood Urea Nitrogen 10 mg/dL (7-17); Calcium 6.4 mg/dL (8.4-10.2); Carbon Dioxide 29 mmol/L (22-30); Chloride 105.3 mmol/L (98-107); Glucose 123 mg/dL (65-100); Potassium 4.3 mmol/L (3.6-5.0); Sodium 141 mmol/L (137-145)
[2016-03-24 07:18] LABS: Anion Gap 11 mmol/L
[2016-03-24] MEDS: PULMICORT IH SCH ×2 (08:20→20:18)
[2016-03-24] MEDS: BROVANA NEBU IH SCH ×2 (08:20→20:18)
--- NOTE | 2016-03-24 08:27 | Cat Scan Report ---
CT ABDOMEN AND PELVIS WITHOUT CONTRAST: HISTORY: Hydronephrosis. FINDINGS: Compared to 03/21/16. Heart size remains normal. Moderate bilateral layering pleural effusions with compressive atelectasis are unchanged. [id number] ascites is present in the abdomen which has increased since the previous exam. The liver, biliary system, pancreas, spleen and adrenal glands are unremarkable. Both kidneys are normal size and position. There is no evidence for focal renal lesion, nephrolithiasis or hydronephrosis. In retrospect, I am not entirely convinced there is bilateral hydronephrosis on the previous exam 2 days ago. The bladder is decompressed with a Gonzalez catheter. The bowel loops are normal caliber and wall thickness. No abnormality is appreciated given oral contrast was not administered. The appendix is not confidently identified. Hysterectomy changes are suspected. IMPRESSION: No evidence for hydronephrosis. Stable bilateral pleural effusions and increased abdominal ascites. No acute inflammatory process is appreciated.
--- NOTE | 2016-03-24 09:03 | Progress Note ---
Assessment and Plan Impression: Acute kidney injury secondary to prerenal azotemia vs obstructive uropathy --Renal u/s: right hydronephrosis Acute hypoxic respiratory failure Ecoli UTI Hypokalemia - resolved Metabolic acidosis - resolved Anemia Leukocytosis Plan: MICAH resolved Gonzalez catheter in place Urology recs reviewed Abx per primary team Monitor SCr and volume status closely Strict I/O Avoid potential nephrotoxins Will see prn Subjective Date of service: 03/24/16 Principal diagnosis: AMS/dysphagia/malnutrition Objective - Vital Signs Vital signs: Vital Signs - 12hr 03/23/16 03/24/16 03/24/16 23:00 05:50 08:00 Temperature 99.6 F 98.3 F Pulse Rate [ Anterior Bilateral Throughout] Pulse Rate [ Anterior Right Upper Lobe] Pulse Rate [ 104 H 102 H Right Dorsalis Pedis] Respiratory 21 22 20 Rate Respiratory Rate [Anterior Bilateral Throughout] Respiratory Rate [Anterior Right Upper Lobe] Blood Pressure 136/96 124/85 [Right Radial Artery] O2 Sat by Pulse 98 98 Oximetry 03/24/16 03/24/16 08:20 08:35 Temperature Pulse Rate [ 101 H 98 H Anterior Bilateral Throughout] Pulse Rate [ 101 H 98 H Anterior Right Upper Lobe] Pulse Rate [ Right Dorsalis Pedis] Respiratory Rate Respiratory 16 18 Rate [Anterior Bilateral Throughout] Respiratory 16 18 Rate [Anterior Right Upper Lobe] Blood Pressure [Right Radial Artery] O2 Sat by Pulse 96 Oximetry - General Appearance General appearance: frail EENT: ATNC Respiratory: Present: Clear to Ascultation Cardiology: regular, S1S2 Gastrointestinal: normal, no tenderness, no distended Integumentary: no rash Neurologic: other (lethargic) Musculoskeletal: other (no edema) - Lab 03/24/16 06:44 03/24/16 06:44 Most recent lab results Calcium 6.4 mg/dL (8.4-10.2) L 03/24/16 06:44 Phosphorus 4.6 mg/dL (2.5-4.5) H 03/21/16 04:45 Magnesium 1.6 mg/dL (1.7-2.3) L 03/21/16 04:45
--- NOTE | 2016-03-24 10:12 | Event Note ---
Date: 03/24/16 CTAP (03-21-16) bilat hydronephrosis pt with retention creatinine 1.5 - now 0.9 REPEAT CTAP (03-23-16) - hydro resolved with carrillo A/P BILAT HYDRONEPHROSIS - resolved continue carrillo (at NH also, change q 4-6 weeks) may need out pt urodynamics appt as out pt
--- NOTE | 2016-03-24 10:12 | Progress Note ---
Assessment and Plan Current antibiotics: None Previous antibiotics: Zosyn 4.5 grams IV q8h 03/03-03/07 Levaquin 750 mg IV q24h 03/03-03/06 ASSESSMENT: Edith Coelho is a 60-year-old female with hypertension, obstructive sleep apnea and COPD who was admitted to [facility] on 03/02/16 with a one-month history of decreased appetite and increasing weakness. She has had a persistent leukocytosis. Problem list: 1. Leukocytosis -Likely reactive secondary to whatever is causing her encephalopathy: ? ETOH withdrawal, etc. -Rule out infection although work up negative to date and no obvious source on exam -Rule out primary hematologic reason 2. AMS -Rule out toxic metabolic encephalopathy -Rule out ETOH withdrawal -Patient is still behaving as if there is some sort of neurologic etiology to her illness although none has been uncovered to date -MRI with no obvious abnormalities. -CSF normal although no serologies sent 3. Pyuria & previous urine culture growing E coli -Likely secondary to chronic Gonzalez and not urinary tract infection 4. MICAH -Resolved 5. Bilateral hydronephrosis -Seen on 03/21 CT scan -Resolved with bladder decompression PLAN: 1. Continue to follow off of antibiotics 2. Would consider heme consult as well as bone marrow 3. Continued supportive measures 4. If patient does not clinically improve, may need to consider transfer to a facility where a thorough neurologic evaluation can be done Bayron Avitia MD [facility] Office: [phone] Subjective Date of service: 03/24/16 Principal diagnosis: AMS/dysphagia/malnutrition Interval history: Transferred back to the floor. Alert & responsive with persistently slurred speech. No new discernible complaints. Objective - Exam Narrative Exam: GENERAL: Well-developed, cachectic female who is in no acute distress but quite lethargic and does not follow commands. HEAD: Normocephalic. No lesions seen. EYES: Pupils are equal reactive to light and accommodation. There is no scleral icterus. Optic fundi are not examined. There is bilateral arcus senilis. EARS: Tympanic membranes are normal. THROAT: Oropharynx is normal with no evidence of oral candidiasis or pharyngitis. Poor dentition but no obvious dental infection seen. Some bleeding from the upper lip. NECK: Supple. No enlargement of the thyroid gland. No significant cervical lymphadenopathy. No jugular venous distention at 30. LUNGS: Clear with no adventitious sounds. HEART: Regular rate. S1 and S2 are normal. There are no murmurs, gallops, clicks or rubs heard. ABDOMEN: Soft, slightly distended and mildly, tender. Liver and spleen are not palpably enlarged or tender. No palpable masses. No ascites. Bowel sounds are normoactive. RECTAL: Not examined EXTREMITIES: No rash, peripheral lymphadenopathy, clubbing or edema. : Diaper in place. NEUROLOGIC: No focal findings. Lethargic. - Constitutional Vitals: Vital Signs Temp Pulse Resp BP Pulse Ox 98.3 F 98 H 18 124/85 96 03/24/16 08:00 03/24/16 08:35 03/24/16 08:35 03/24/16 08:00 03/24/16 08:20 Temperature -Last 24 Hours Temperature 98.3 F Temperature 99.6 F Temperature 97.7 F - Labs CBC & Chem 7: 03/24/16 06:44 03/24/16 06:44 Labs: Abnormal lab results 03/21/16 15:31 Stool Stool Occult Blood (MURALI) - Final 03/12/16 Unknown Cerebral Spinal Fluid CSF Culture - Final 03/04/16 09:18 Peripheral/Venous Blood Culture - Final NO GROWTH AFTER 5 DAYS 03/04/16 09:01 Peripheral/Venous Blood Culture - Final NO GROWTH AFTER 5 DAYS 03/04/16 Unknown Urine,Clean Catch Urine Culture - Final Escherichia Coli Imagin/24: CT abdomen/pelvis: No hydronephrosis. No other abnormalities 03/21: CT abdomen/pelvis: Bilateral hydronephrosis, moderate ascites and extensive anasarca, bilateral pleural effusions and bibasilar compressive atelectasis. 03/22: CT head normal
--- NOTE | 2016-03-24 12:15 | Progress Note ---
Assessment and Plan AMS. Little changes although more alert. Opens workup was negative. Suspect secondary to metabolic injury Leukocytosis. Comments from ID noted. Patient be monitored off antibiotics Acute renal failure electrolyte imbalance . Improved acute respiratory failure . Resolved bilateral pleural effusions left and right sided hydronephrosis Recommendations Monitor neuro status Agree with ID that she may need to be transferred to our facility for further neurological assessment. Follow-up CBC Subjective Principal diagnosis: AMS/dysphagia/malnutrition Interval history: Alert but not communicating, talking to her family Objective Vital Signs - 12hr 03/24/16 03/24/16 03/24/16 05:50 08:00 08:20 Temperature 98.3 F Pulse Rate [ 101 H Anterior Bilateral Throughout] Pulse Rate [ 101 H Anterior Right Upper Lobe] Pulse Rate [ 102 H Right Dorsalis Pedis] Respiratory 22 20 Rate Respiratory 16 Rate [Anterior Bilateral Throughout] Respiratory 16 Rate [Anterior Right Upper Lobe] Blood Pressure 124/85 [Right Radial Artery] O2 Sat by Pulse 98 96 Oximetry 03/24/16 08:35 Temperature Pulse Rate [ 98 H Anterior Bilateral Throughout] Pulse Rate [ 98 H Anterior Right Upper Lobe] Pulse Rate [ Right Dorsalis Pedis] Respiratory Rate Respiratory 18 Rate [Anterior Bilateral Throughout] Respiratory 18 Rate [Anterior Right Upper Lobe] Blood Pressure [Right Radial Artery] O2 Sat by Pulse Oximetry Constitutional: alert, other (confused) Eyes: icteric ENT: oropharynx dry Neck: supple Effort: mildly labored Ascultation: Bilateral: clear, diminished breath sounds (bases) Percussion: Bilateral: not dull Cardiovascular: regular rate and rhythm Gastrointestinal: normoactive bowel sounds, soft, non-tender Extremities: cool Neurologic: pupils equal and round, unable to assess, other (alert but not following commands. Moving all 4 extremities equally but difficult to assess) CBC and BMP: 03/24/16 06:44 03/24/16 06:44 ABG, PT/INR, D-dimer: ABG POC ABG pH 7.365 (7.35-7.45) 03/20/16 21:00 POC ABG pCO2 25.9 (35-45) L 03/20/16 21:00 POC ABG pO2 90 (80-105) 03/20/16 21:00 POC ABG HCO3 14.8 03/20/16 21:00 POC ABG Total CO2 16 03/20/16 21:00 POC ABG O2 Sat 97 01/21/17 21:00 PT/INR, D-dimer PT 13.0 Sec. (12.2-14.9) 03/12/16 09:50 INR 0.99 (0.87-1.13) 03/12/16 09:50 Abnormal lab findings: Abnormal Labs 03/03/16 03/03/16 03/04/16 15:47 15:47 05:14 WBC 19.2 H 23.1 H RBC 3.64 L Hgb Hct MCV RDW 16.5 H 16.6 H Plt Count 449 H Lymph % (Auto) [place] % (Auto) [place] # Eos # Seg Neutrophils % Seg Neuts % (Manual) Lymphocytes % (Manual) Monocytes % (Manual) Seg Neutrophils # Seg Neutrophils # Man Lymphocytes # (Manual) Monocytes # (Manual) Eosinophils # (Manual) APTT POC ABG pH POC ABG pCO2 Sodium Potassium 2.8 L* Chloride 96.5 L Carbon Dioxide 20 L BUN Creatinine 0.6 L Glucose 139 H POC Glucose Uric Acid Calcium Phosphorus Magnesium Total Bilirubin Ammonia Total Protein Albumin Urine WBC (Auto) Crossmatch 03/04/16 03/04/16 03/04/16 05:14 09:01 19:38 WBC RBC Hgb Hct MCV RDW Plt Count Lymph % (Auto) [place] % (Auto) [place] # Eos # Seg Neutrophils % Seg Neuts % (Manual) Lymphocytes % (Manual) Monocytes % (Manual) Seg Neutrophils # Seg Neutrophils # Man Lymphocytes # (Manual) Monocytes # (Manual) Eosinophils # (Manual) APTT POC ABG pH POC ABG pCO2 Sodium 135 L Potassium 3.3 L Chloride 95.7 L Carbon Dioxide 19 L BUN Creatinine Glucose 130 H POC Glucose Uric Acid Calcium 8.0 L Phosphorus 1.4 L Magnesium 1.0 L Total Bilirubin 1.9 H Ammonia 95.0 H Total Protein Albumin 3.0 L Urine WBC (Auto) Crossmatch 03/05/16 03/05/16 03/05/16 07:39 07:39 17:59 WBC 20.3 H RBC 3.50 L Hgb Hct MCV 98 H RDW 16.1 H Plt Count Lymph % (Auto) [place] % (Auto) [place] # Eos # Seg Neutrophils % Seg Neuts % (Manual) Lymphocytes % (Manual) Monocytes % (Manual) Seg Neutrophils # Seg Neutrophils # Man Lymphocytes # (Manual) Monocytes # (Manual) Eosinophils # (Manual) APTT POC ABG pH POC ABG pCO2 Sodium Potassium 2.7 L* 3.2 L Chloride Carbon Dioxide 19 L 18 L BUN Creatinine 1.4 H D 1.4 H Glucose 131 H POC Glucose Uric Acid Calcium 7.6 L 7.3 L Phosphorus 6.7 H D Magnesium 2.6 H Total Bilirubin 1.4 H Ammonia Total Protein 5.9 L Albumin 2.4 L Urine WBC (Auto) Crossmatch 03/06/16 03/06/16 03/06/16 09:54 09:54 18:07 WBC 22.2 H RBC 3.19 L Hgb 9.9 L Hct MCV 98 H RDW 16.8 H Plt Count Lymph % (Auto) [place] % (Auto) [place] # Eos # Seg Neutrophils % Seg Neuts % (Manual) Lymphocytes % (Manual) Monocytes % (Manual) Seg Neutrophils # Seg Neutrophils # Man Lymphocytes # (Manual) Monocytes # (Manual) Eosinophils # (Manual) APTT POC ABG pH POC ABG pCO2 Sodium 150 H D Potassium 2.8 L* 2.8 L* Chloride 113.5 H Carbon Dioxide 16 L 16 L BUN Creatinine Glucose 137 H 106 H POC Glucose Uric Acid Calcium 7.4 L 7.7 L Phosphorus Magnesium Total Bilirubin Ammonia Total Protein Albumin Urine WBC (Auto) Crossmatch 03/07/16 03/07/16 03/07/16 04:53 04:53 05:43 WBC 19.7 H RBC 3.20 L Hgb 9.9 L Hct MCV RDW 16.6 H Plt Count Lymph % (Auto) [place] % (Auto) [place] # Eos # Seg Neutrophils % Seg Neuts % (Manual) Lymphocytes % (Manual) Monocytes % (Manual) Seg Neutrophils # Seg Neutrophils # Man Lymphocytes # (Manual) Monocytes # (Manual) Eosinophils # (Manual) APTT POC ABG pH POC ABG pCO2 Sodium Potassium 2.9 L* Chloride 114.1 H Carbon Dioxide 19 L BUN Creatinine Glucose 140 H POC Glucose 143 H Uric Acid Calcium 7.8 L Phosphorus Magnesium Total Bilirubin Ammonia Total Protein Albumin Urine WBC (Auto) Crossmatch 03/07/16 03/08/16 03/08/16 22:20 05:09 05:09 WBC 32.2 H RBC 3.18 L Hgb 10.0 L Hct MCV RDW 16.8 H Plt Count Lymph % (Auto) [place] % (Auto) [place] # Eos # Seg Neutrophils % Seg Neuts % (Manual) Lymphocytes % (Manual) Monocytes % (Manual) Seg Neutrophils # Seg Neutrophils # Man Lymphocytes # (Manual) Monocytes # (Manual) Eosinophils # (Manual) APTT POC ABG pH POC ABG pCO2 Sodium 155 H D Potassium 6.3 H* D 6.1 H* Chloride Carbon Dioxide 18 L BUN Creatinine 1.6 H D Glucose 213 H POC Glucose Uric Acid Calcium Phosphorus Magnesium Total Bilirubin Ammonia Total Protein Albumin Urine WBC (Auto) Crossmatch 03/08/16 03/08/16 03/08/16 09:11 16:28 17:27 WBC RBC Hgb Hct MCV RDW Plt Count Lymph % (Auto) [place] % (Auto) [place] # Eos # Seg Neutrophils % Seg Neuts % (Manual) Lymphocytes % (Manual) Monocytes % (Manual) Seg Neutrophils # Seg Neutrophils # Man Lymphocytes # (Manual) Monocytes # (Manual) Eosinophils # (Manual) APTT POC ABG pH POC ABG pCO2 Sodium 156 H Potassium Chloride 126.2 H Carbon Dioxide 19 L BUN Creatinine 1.8 H Glucose 175 H POC Glucose 204 H 130 H Uric Acid Calcium Phosphorus Magnesium Total Bilirubin Ammonia Total Protein Albumin Urine WBC (Auto) Crossmatch 03/08/16 03/09/16 03/09/16 22:06 05:47 08:00 WBC 29.9 H RBC 2.93 L Hgb 9.0 L Hct 28.4 L MCV RDW 17.4 H Plt Count Lymph % (Auto) [place] % (Auto) [place] # Eos # Seg Neutrophils % Seg Neuts % (Manual) Lymphocytes % (Manual) Monocytes % (Manual) Seg Neutrophils # Seg Neutrophils # Man Lymphocytes # (Manual) Monocytes # (Manual) Eosinophils # (Manual) APTT POC ABG pH POC ABG pCO2 Sodium Potassium Chloride Carbon Dioxide BUN Creatinine Glucose POC Glucose 192 H 206 H Uric Acid Calcium Phosphorus Magnesium Total Bilirubin Ammonia Total Protein Albumin Urine WBC (Auto) Crossmatch 03/09/16 03/09/16 03/09/16 08:00 11:33 16:03 WBC RBC Hgb Hct MCV RDW Plt Count Lymph % (Auto) [place] % (Auto) [place] # Eos # Seg Neutrophils % Seg Neuts % (Manual) Lymphocytes % (Manual) Monocytes % (Manual) Seg Neutrophils # Seg Neutrophils # Man Lymphocytes # (Manual) Monocytes # (Manual) Eosinophils # (Manual) APTT POC ABG pH POC ABG pCO2 Sodium 154 H Potassium Chloride 123.0 H Carbon Dioxide 21 L BUN 18 H Creatinine 1.9 H Glucose 179 H POC Glucose 152 H 130 H Uric Acid Calcium 8.2 L Phosphorus Magnesium Total Bilirubin Ammonia Total Protein Albumin Urine WBC (Auto) Crossmatch 03/10/16 03/10/16 03/10/16 06:16 11:53 17:22 WBC RBC Hgb Hct MCV RDW Plt Count Lymph % (Auto) [place] % (Auto) [place] # Eos # Seg Neutrophils % Seg Neuts % (Manual) Lymphocytes % (Manual) Monocytes % (Manual) Seg Neutrophils # Seg Neutrophils # Man Lymphocytes # (Manual) Monocytes # (Manual) Eosinophils # (Manual) APTT POC ABG pH POC ABG pCO2 Sodium Potassium Chloride Carbon Dioxide BUN Creatinine Glucose POC Glucose 170 H 141 H 159 H Uric Acid Calcium Phosphorus Magnesium Total Bilirubin Ammonia Total Protein Albumin Urine WBC (Auto) Crossmatch 03/10/16 03/10/16 03/10/16 Unknown Unknown Unknown WBC 22.8 H RBC 2.70 L Hgb 8.7 L Hct 26.4 L MCV 98 H RDW 17.1 H Plt Count Lymph % (Auto) [place] % (Auto) [place] # Eos # Seg Neutrophils % Seg Neuts % (Manual) 78.0 H Lymphocytes % (Manual) 12.0 L Monocytes % (Manual) Seg Neutrophils # Seg Neutrophils # Man 17.8 H Lymphocytes # (Manual) Monocytes # (Manual) 1.1 H Eosinophils # (Manual) 0.9 H APTT POC ABG pH POC ABG pCO2 Sodium 147 H Potassium Chloride 115.0 H Carbon Dioxide 20 L BUN 22 H Creatinine 1.6 H Glucose 142 H POC Glucose Uric Acid Calcium 7.7 L Phosphorus Magnesium 1.5 L Total Bilirubin Ammonia Total Protein Albumin Urine WBC (Auto) Crossmatch 03/11/16 03/11/16 03/11/16 00:11 00:50 06:15 WBC 24.3 H RBC 2.93 L Hgb 9.0 L Hct 28.1 L MCV RDW 17.4 H Plt Count Lymph % (Auto) [place] % (Auto) [place] # Eos # Seg Neutrophils % Seg Neuts % (Manual) 74.0 H Lymphocytes % (Manual) 10.0 L Monocytes % (Manual) 8.0 H Seg Neutrophils # Seg Neutrophils # Man 18.0 H Lymphocytes # (Manual) Monocytes # (Manual) 1.9 H Eosinophils # (Manual) 1.0 H APTT POC ABG pH POC ABG pCO2 Sodium Potassium Chloride Carbon Dioxide BUN Creatinine Glucose POC Glucose 143 H 136 H Uric Acid Calcium Phosphorus Magnesium Total Bilirubin Ammonia Total Protein Albumin Urine WBC (Auto) Crossmatch 03/11/16 03/12/16 03/12/16 07:24 09:50 12:10 WBC RBC Hgb Hct MCV RDW Plt Count Lymph % (Auto) [place] % (Auto) [place] # Eos # Seg Neutrophils % Seg Neuts % (Manual) Lymphocytes % (Manual) Monocytes % (Manual) Seg Neutrophils # Seg Neutrophils # Man Lymphocytes # (Manual) Monocytes # (Manual) Eosinophils # (Manual) APTT 38.8 H POC ABG pH POC ABG pCO2 Sodium 135 L D Potassium Chloride Carbon Dioxide BUN 27 H Creatinine 1.8 H Glucose 136 H POC Glucose 111 H Uric Acid Calcium 7.5 L Phosphorus Magnesium 1.4 L Total Bilirubin Ammonia Total Protein Albumin Urine WBC (Auto) Crossmatch 03/12/16 03/12/16 03/13/16 16:39 21:45 05:00 WBC 19.2 H RBC 2.68 L Hgb 8.5 L Hct 25.7 L MCV RDW 17.4 H Plt Count Lymph % (Auto) 9.3 L [place] % (Auto) 8.7 H [place] # 1.7 H Eos # 0.5 H Seg Neutrophils % 78.6 H Seg Neuts % (Manual) Lymphocytes % (Manual) Monocytes % (Manual) Seg Neutrophils # 15.1 H Seg Neutrophils # Man Lymphocytes # (Manual) Monocytes # (Manual) Eosinophils # (Manual) APTT POC ABG pH POC ABG pCO2 Sodium Potassium Chloride Carbon Dioxide BUN Creatinine Glucose POC Glucose 112 H 124 H Uric Acid Calcium Phosphorus Magnesium Total Bilirubin Ammonia Total Protein Albumin Urine WBC (Auto) Crossmatch 03/13/16 03/13/16 03/14/16 05:00 16:19 06:21 WBC RBC Hgb Hct MCV RDW Plt Count Lymph % (Auto) [place] % (Auto) [place] # Eos # Seg Neutrophils % Seg Neuts % (Manual) Lymphocytes % (Manual) Monocytes % (Manual) Seg Neutrophils # Seg Neutrophils # Man Lymphocytes # (Manual) Monocytes # (Manual) Eosinophils # (Manual) APTT POC ABG pH POC ABG pCO2 Sodium Potassium Chloride Carbon Dioxide 20 L BUN 31 H Creatinine 2.1 H Glucose POC Glucose 61 L 125 H Uric Acid Calcium 7.8 L Phosphorus Magnesium 3.1 H Total Bilirubin Ammonia Total Protein Albumin Urine WBC (Auto) Crossmatch 03/14/16 03/14/16 03/15/16 13:48 18:34 00:02 WBC RBC Hgb Hct MCV RDW Plt Count Lymph % (Auto) [place] % (Auto) [place] # Eos # Seg Neutrophils % Seg Neuts % (Manual) Lymphocytes % (Manual) Monocytes % (Manual) Seg Neutrophils # Seg Neutrophils # Man Lymphocytes # (Manual) Monocytes # (Manual) Eosinophils # (Manual) APTT POC ABG pH POC ABG pCO2 Sodium Potassium Chloride Carbon Dioxide BUN Creatinine Glucose POC Glucose 107 H 124 H 138 H Uric Acid Calcium Phosphorus Magnesium Total Bilirubin Ammonia Total Protein Albumin Urine WBC (Auto) Crossmatch 03/15/16 03/15/16 03/15/16 06:40 06:40 07:23 WBC 13.5 H RBC 2.32 L Hgb 7.5 L Hct 22.3 L MCV RDW 17.5 H Plt Count Lymph % (Auto) 12.8 L [place] % (Auto) 8.2 H [place] # 1.1 H Eos # Seg Neutrophils % 75.5 H Seg Neuts % (Manual) Lymphocytes % (Manual) Monocytes % (Manual) Seg Neutrophils # 10.2 H Seg Neutrophils # Man Lymphocytes # (Manual) Monocytes # (Manual) Eosinophils # (Manual) APTT POC ABG pH POC ABG pCO2 Sodium Potassium Chloride 110.8 H Carbon Dioxide 16 L BUN 28 H Creatinine 2.4 H Glucose POC Glucose 112 H Uric Acid Calcium 7.0 L Phosphorus Magnesium Total Bilirubin Ammonia Total Protein Albumin Urine WBC (Auto) Crossmatch 03/15/16 03/15/16 03/15/16 11:46 16:32 20:52 WBC RBC Hgb Hct MCV RDW Plt Count Lymph % (Auto) [place] % (Auto) [place] # Eos # Seg Neutrophils % Seg Neuts % (Manual) Lymphocytes % (Manual) Monocytes % (Manual) Seg Neutrophils # Seg Neutrophils # Man Lymphocytes # (Manual) Monocytes # (Manual) Eosinophils # (Manual) APTT POC ABG pH POC ABG pCO2 Sodium Potassium Chloride Carbon Dioxide BUN Creatinine Glucose POC Glucose 138 H 127 H 118 H Uric Acid Calcium Phosphorus Magnesium Total Bilirubin Ammonia Total Protein Albumin Urine WBC (Auto) Crossmatch 03/16/16 03/16/16 03/16/16 06:01 06:01 06:24 WBC 27.8 H RBC 2.41 L Hgb 7.4 L Hct 23.2 L MCV RDW 18.2 H Plt Count Lymph % (Auto) [place] % (Auto) [place] # Eos # Seg Neutrophils % Seg Neuts % (Manual) 91.5 H Lymphocytes % (Manual) 2.5 L Monocytes % (Manual) Seg Neutrophils # Seg Neutrophils # Man 25.4 H Lymphocytes # (Manual) 0.7 L Monocytes # (Manual) Eosinophils # (Manual) APTT POC ABG pH POC ABG pCO2 Sodium Potassium Chloride 113.0 H Carbon Dioxide 15 L BUN 30 H Creatinine 2.6 H Glucose 130 H POC Glucose 159 H Uric Acid Calcium 6.8 L Phosphorus Magnesium Total Bilirubin Ammonia Total Protein Albumin Urine WBC (Auto) Crossmatch 03/16/16 03/16/16 03/16/16 11:34 16:37 23:46 WBC RBC Hgb Hct MCV RDW Plt Count Lymph % (Auto) [place] % (Auto) [place] # Eos # Seg Neutrophils % Seg Neuts % (Manual) Lymphocytes % (Manual) Monocytes % (Manual) Seg Neutrophils # Seg Neutrophils # Man Lymphocytes # (Manual) Monocytes # (Manual) Eosinophils # (Manual) APTT POC ABG pH POC ABG pCO2 Sodium Potassium Chloride Carbon Dioxide BUN Creatinine Glucose POC Glucose 164 H 109 H 114 H Uric Acid Calcium Phosphorus Magnesium Total Bilirubin Ammonia Total Protein Albumin Urine WBC (Auto) Crossmatch 03/17/16 03/17/16 03/17/16 11:33 22:11 23:50 WBC RBC Hgb Hct MCV RDW Plt Count Lymph % (Auto) [place] % (Auto) [place] # Eos # Seg Neutrophils % Seg Neuts % (Manual) Lymphocytes % (Manual) Monocytes % (Manual) Seg Neutrophils # Seg Neutrophils # Man Lymphocytes # (Manual) Monocytes # (Manual) Eosinophils # (Manual) APTT POC ABG pH 7.319 L POC ABG pCO2 28.6 L Sodium Potassium Chloride 111.6 H Carbon Dioxide 16 L BUN 34 H Creatinine 2.7 H Glucose 115 H POC Glucose 117 H Uric Acid 8.4 H Calcium 7.4 L Phosphorus Magnesium Total Bilirubin Ammonia Total Protein Albumin Urine WBC (Auto) Crossmatch 03/17/16 03/18/16 03/19/16 23:50 11:11 05:20 WBC 18.2 H RBC 2.11 L Hgb 6.7 L Hct 20.1 L MCV RDW 17.5 H Plt Count Lymph % (Auto) [place] % (Auto) [place] # Eos # Seg Neutrophils % Seg Neuts % (Manual) Lymphocytes % (Manual) Monocytes % (Manual) Seg Neutrophils # Seg Neutrophils # Man Lymphocytes # (Manual) Monocytes # (Manual) Eosinophils # (Manual) APTT POC ABG pH 7.320 L POC ABG pCO2 29.9 L Sodium Potassium Chloride Carbon Dioxide BUN Creatinine Glucose POC Glucose 124 H Uric Acid Calcium Phosphorus Magnesium Total Bilirubin Ammonia Total Protein Albumin Urine WBC (Auto) Crossmatch 03/19/16 03/19/16 03/19/16 05:20 06:11 09:30 WBC RBC Hgb Hct MCV RDW Plt Count Lymph % (Auto) [place] % (Auto) [place] # Eos # Seg Neutrophils % Seg Neuts % (Manual) Lymphocytes % (Manual) Monocytes % (Manual) Seg Neutrophils # Seg Neutrophils # Man Lymphocytes # (Manual) Monocytes # (Manual) Eosinophils # (Manual) APTT POC ABG pH POC ABG pCO2 Sodium Potassium Chloride 114.1 H Carbon Dioxide 16 L BUN 32 H Creatinine 2.2 H Glucose POC Glucose 63 L Uric Acid Calcium 7.7 L Phosphorus Magnesium Total Bilirubin Ammonia Total Protein Albumin Urine WBC (Auto) Crossmatch See Detail 03/19/16 03/19/16 03/19/16 12:14 16:30 23:57 WBC RBC Hgb Hct MCV RDW Plt Count Lymph % (Auto) [place] % (Auto) [place] # Eos # Seg Neutrophils % Seg Neuts % (Manual) Lymphocytes % (Manual) Monocytes % (Manual) Seg Neutrophils # Seg Neutrophils # Man Lymphocytes # (Manual) Monocytes # (Manual) Eosinophils # (Manual) APTT POC ABG pH POC ABG pCO2 Sodium Potassium Chloride Carbon Dioxide BUN Creatinine Glucose POC Glucose 138 H 133 H 190 H Uric Acid Calcium Phosphorus Magnesium Total Bilirubin Ammonia Total Protein Albumin Urine WBC (Auto) Crossmatch 03/20/16 03/20/16 03/20/16 06:38 11:52 15:36 WBC RBC Hgb Hct MCV RDW Plt Count Lymph % (Auto) [place] % (Auto) [place] # Eos # Seg Neutrophils % Seg Neuts % (Manual) Lymphocytes % (Manual) Monocytes % (Manual) Seg Neutrophils # Seg Neutrophils # Man Lymphocytes # (Manual) Monocytes # (Manual) Eosinophils # (Manual) APTT POC ABG pH POC ABG pCO2 Sodium Potassium Chloride Carbon Dioxide BUN Creatinine Glucose POC Glucose 163 H 138 H 151 H Uric Acid Calcium Phosphorus Magnesium Total Bilirubin Ammonia Total Protein Albumin Urine WBC (Auto) Crossmatch 03/20/16 03/20/16 03/20/16 21:00 23:55 Unknown WBC 30.1 H RBC 3.23 L Hgb Hct 29.6 L D MCV RDW 16.2 H Plt Count Lymph % (Auto) [place] % (Auto) [place] # Eos # Seg Neutrophils % Seg Neuts % (Manual) Lymphocytes % (Manual) Monocytes % (Manual) Seg Neutrophils # Seg Neutrophils # Man Lymphocytes # (Manual) Monocytes # (Manual) Eosinophils # (Manual) APTT POC ABG pH POC ABG pCO2 25.9 L Sodium Potassium Chloride Carbon Dioxide BUN Creatinine Glucose POC Glucose 167 H Uric Acid Calcium Phosphorus Magnesium Total Bilirubin Ammonia Total Protein Albumin Urine WBC (Auto) Crossmatch 03/20/16 03/21/16 03/21/16 Unknown 04:45 04:45 WBC 28.0 H RBC 3.37 L Hgb Hct MCV RDW 16.4 H Plt Count Lymph % (Auto) [place] % (Auto) [place] # Eos # Seg Neutrophils % Seg Neuts % (Manual) Lymphocytes % (Manual) Monocytes % (Manual) Seg Neutrophils # Seg Neutrophils # Man Lymphocytes # (Manual) Monocytes # (Manual) Eosinophils # (Manual) APTT POC ABG pH POC ABG pCO2 Sodium Potassium 5.1 H Chloride 110.4 H Carbon Dioxide 14 L BUN 34 H 37 H Creatinine 2.9 H 3.2 H Glucose 131 H 124 H POC Glucose Uric Acid Calcium 7.5 L 7.1 L Phosphorus 4.6 H Magnesium 1.6 L Total Bilirubin Ammonia Total Protein Albumin Urine WBC (Auto) Crossmatch 03/21/16 03/21/16 03/21/16 05:52 11:23 17:48 WBC RBC Hgb Hct MCV RDW Plt Count Lymph % (Auto) [place] % (Auto) [place] # Eos # Seg Neutrophils % Seg Neuts % (Manual) Lymphocytes % (Manual) Monocytes % (Manual) Seg Neutrophils # Seg Neutrophils # Man Lymphocytes # (Manual) Monocytes # (Manual) Eosinophils # (Manual) APTT POC ABG pH POC ABG pCO2 Sodium Potassium Chloride Carbon Dioxide BUN Creatinine Glucose POC Glucose 136 H 144 H 149 H Uric Acid Calcium Phosphorus Magnesium Total Bilirubin Ammonia Total Protein Albumin Urine WBC (Auto) Crossmatch 03/21/16 03/22/16 03/22/16 22:05 00:44 04:30 WBC 23.2 H RBC 3.38 L Hgb Hct MCV RDW 16.1 H Plt Count Lymph % (Auto) [place] % (Auto) [place] # Eos # Seg Neutrophils % Seg Neuts % (Manual) Lymphocytes % (Manual) Monocytes % (Manual) Seg Neutrophils # Seg Neutrophils # Man Lymphocytes # (Manual) Monocytes # (Manual) Eosinophils # (Manual) APTT POC ABG pH POC ABG pCO2 Sodium Potassium Chloride Carbon Dioxide BUN Creatinine Glucose POC Glucose 129 H 121 H Uric Acid Calcium Phosphorus Magnesium Total Bilirubin Ammonia Total Protein Albumin Urine WBC (Auto) Crossmatch 03/22/16 03/22/16 03/22/16 04:30 06:17 17:47 WBC RBC Hgb Hct MCV RDW Plt Count Lymph % (Auto) [place] % (Auto) [place] # Eos # Seg Neutrophils % Seg Neuts % (Manual) Lymphocytes % (Manual) Monocytes % (Manual) Seg Neutrophils # Seg Neutrophils # Man Lymphocytes # (Manual) Monocytes # (Manual) Eosinophils # (Manual) APTT POC ABG pH POC ABG pCO2 Sodium Potassium 3.0 L D Chloride Carbon Dioxide BUN 27 H Creatinine 1.5 H D Glucose 124 H POC Glucose 120 H Uric Acid Calcium 6.9 L Phosphorus Magnesium Total Bilirubin Ammonia Total Protein Albumin Urine WBC (Auto) 138.0 H Crossmatch 03/23/16 03/23/16 03/23/16 04:00 07:00 12:52 WBC 22.2 H RBC 3.59 L Hgb Hct MCV RDW 15.8 H Plt Count Lymph % (Auto) [place] % (Auto) [place] # Eos # Seg Neutrophils % Seg Neuts % (Manual) Lymphocytes % (Manual) Monocytes % (Manual) Seg Neutrophils # Seg Neutrophils # Man Lymphocytes # (Manual) Monocytes # (Manual) Eosinophils # (Manual) APTT POC ABG pH POC ABG pCO2 Sodium Potassium 3.1 L Chloride Carbon Dioxide BUN Creatinine Glucose 111 H POC Glucose 112 H Uric Acid Calcium 6.6 L Phosphorus Magnesium Total Bilirubin Ammonia Total Protein Albumin Urine WBC (Auto) Crossmatch 03/23/16 03/23/16 03/24/16 17:21 23:53 06:08 WBC RBC Hgb Hct MCV RDW Plt Count Lymph % (Auto) [place] % (Auto) [place] # Eos # Seg Neutrophils % Seg Neuts % (Manual) Lymphocytes % (Manual) Monocytes % (Manual) Seg Neutrophils # Seg Neutrophils # Man Lymphocytes # (Manual) Monocytes # (Manual) Eosinophils # (Manual) APTT POC ABG pH POC ABG pCO2 Sodium Potassium Chloride Carbon Dioxide BUN Creatinine Glucose POC Glucose 120 H 110 H 127 H Uric Acid Calcium Phosphorus Magnesium Total Bilirubin Ammonia Total Protein Albumin Urine WBC (Auto) Crossmatch 03/24/16 03/24/16 06:44 06:44 WBC 25.1 H RBC 3.22 L Hgb 9.8 L Hct 29.6 L MCV RDW 15.8 H Plt Count Lymph % (Auto) [place] % (Auto) [place] # Eos # Seg Neutrophils % Seg Neuts % (Manual) Lymphocytes % (Manual) Monocytes % (Manual) Seg Neutrophils # Seg Neutrophils # Man Lymphocytes # (Manual) Monocytes # (Manual) Eosinophils # (Manual) APTT POC ABG pH POC ABG pCO2 Sodium Potassium Chloride Carbon Dioxide BUN Creatinine 0.5 L Glucose 123 H POC Glucose Uric Acid Calcium 6.4 L Phosphorus Magnesium Total Bilirubin Ammonia Total Protein Albumin Urine WBC (Auto) Crossmatch
[2016-03-24] MEDS: VITAMIN B-1 FEEDTUBE SCH (12:51)
[2016-03-24] MEDS: FOLVITE PO SCH (12:51)
[2016-03-24] MEDS: TENORMIN PO SCH (12:53)
--- NOTE | 2016-03-24 13:21 | Progress Note ---
Assessment and Plan Assessment and plan: Acute Metabolic encephalopathy. Patient lethargic, confused.Workup so far negative, MRI no acute intracranial abnormality noted Lumbar puncture and CSF analysis negative Acute respiratory failure. On supplemental Oxygen at 2 L/m nasal cannula with oxygen saturation of 96%. Anemia due to chronic disease. Hemoglobin now 9.8 after 1 Unit PRBC Dysphagia, secondary to metabolic encephalopathy. PEG tube placed. Continue tube feeding. Acute kidney injury, now resolved. Cr 0.5 today from 3.2, few days ago. Nephrology following. Gonzalez catheter, strict I/O Hydronephrosis bilat. CT Abd did not show any etiology. Consulted Urology. Discussed case with Dr. Prabhakar and he recommended repeat CT abdomen. This was negative for is done today, report pending. Leukocytosis. fluctuating. No fever. WBC 25 today. Continue to monitor off antibiotics as recommended by ID. --Positive urine cultures for Escherichia coli almost 3 weeks ago. Completed antibiotics. ID Recommend monitor off antibiotics Hyperkalemia. This is now resolved. --Hypernatremia. Resolved --Hypertension. Well controlled on Atenolol, lisinopril, clonidine prn. --Full code status --DVT prophylaxis with heparin Disposition. Discussed with Case management.Plan is for SNF placement. She is medically stable to go to SNF. I have also had several discussions with at bedside. History Interval history: Patient transferred back to medical floor from ICU on 03/22/16 Still confused, still agitated on and off, Hospitalist Physical - Physical exam Narrative exam: Narrative exam: Gen: Not in acute distress, ill looking, HEENT: Atraumatic, nasal canula on Neck :supple, no JVD Lungs: Lungs clear to auscultation bilaterally, no crackles or wheeze Heart: S1 and S2 regular, no murmurs, rubs or gallop Abdomen:soft, non-tender, non-distended, normal bowel sounds, PEG tube Ext: No edema, no clubbing or cyanosis Neuro: Lethargic,but more arouseable, confused. moves all ext, does not follow commands - Constitutional Vitals: Temp Pulse Resp BP Pulse Ox 98.3 F 98 H 18 124/85 96 03/24/16 08:00 03/24/16 12:53 03/24/16 08:35 03/24/16 12:53 03/24/16 08:20 General appearance: Present: no acute distress, well-nourished Results - Labs CBC & Chem 7: 03/24/16 06:44 03/24/16 06:44 Labs: Laboratory Last Values WBC 25.1 K/mm3 (4.5-11.0) H 03/24/16 06:44 RBC 3.22 M/mm3 (3.65-5.03) L 03/24/16 06:44 Hgb 9.8 gm/dl (10.1-14.3) L 03/24/16 06:44 Hct 29.6 % (30.3-42.9) L 03/24/16 06:44 MCV 92 fl (79-97) 03/24/16 06:44 MCH 31 pg (28-32) 03/24/16 06:44 MCHC 33 % (30-34) 03/24/16 06:44 RDW 15.8 % (13.2-15.2) H 03/24/16 06:44 Plt Count 290 K/mm3 (140-440) 03/24/16 06:44 Lymph % (Auto) 12.8 % (13.4-35.0) L 03/15/16 06:40 Esmeralda % (Auto) 8.2 % (0.0-7.3) H 03/15/16 06:40 Eos % (Auto) 3.0 % (0.0-4.3) 03/15/16 06:40 Baso % (Auto) 0.5 % (0.0-1.8) 03/15/16 06:40 Lymph # 1.7 K/mm3 (1.2-5.4) 03/15/16 06:40 Esmeralda # 1.1 K/mm3 (0.0-0.8) H 03/15/16 06:40 Eos # 0.4 K/mm3 (0.0-0.4) 03/15/16 06:40 Baso # 0.1 K/mm3 (0.0-0.1) 03/15/16 06:40 Add Manual Diff Complete 03/16/16 06:01 Total Counted 200 03/16/16 06:01 Seg Neutrophils % 75.5 % (40.0-70.0) H 03/15/16 06:40 Seg Neuts % (Manual) 91.5 % (40.0-70.0) H 03/16/16 06:01 Band Neutrophils % 4.0 % 03/16/16 06:01 Lymphocytes % (Manual) 2.5 % (13.4-35.0) L 03/16/16 06:01 Reactive Lymphs % (Man) 0 % 03/16/16 06:01 Monocytes % (Manual) 1.5 % (0.0-7.3) 03/16/16 06:01 Eosinophils % (Manual) 0 % (0.0-4.3) 03/16/16 06:01 Basophils % (Manual) 0.5 % (0.0-1.8) 03/16/16 06:01 Metamyelocytes % 0 % 03/16/16 06:01 Myelocytes % 0 % 03/16/16 06:01 Promyelocytes % 0 % 03/16/16 06:01 Blast Cells % 0 % 03/16/16 06:01 Nucleated RBC % Not Reportable 03/16/16 06:01 Seg Neutrophils # 10.2 K/mm3 (1.8-7.7) H 03/15/16 06:40 Seg Neutrophils # Man 25.4 K/mm3 (1.8-7.7) H 03/16/16 06:01 Band Neutrophils # 1.1 K/mm3 03/16/16 06:01 Lymphocytes # (Manual) 0.7 K/mm3 (1.2-5.4) L 03/16/16 06:01 Abs React Lymphs (Man) 0.0 K/mm3 03/16/16 06:01 Monocytes # (Manual) 0.4 K/mm3 (0.0-0.8) 03/16/16 06:01 Eosinophils # (Manual) 0.0 K/mm3 (0.0-0.4) 03/16/16 06:01 Basophils # (Manual) 0.1 K/mm3 (0.0-0.1) 03/16/16 06:01 Metamyelocytes # 0.0 K/mm3 03/16/16 06:01 Myelocytes # 0.0 K/mm3 03/16/16 06:01 Promyelocytes # 0.0 K/mm3 03/16/16 06:01 Blast Cells # 0.0 K/mm3 03/16/16 06:01 WBC Morphology Not Reportable 03/16/16 06:01 Hypersegmented Neuts Not Reportable 03/16/16 06:01 Hyposegmented Neuts Not Reportable 03/16/16 06:01 Hypogranular Neuts Not Reportable 03/16/16 06:01 Smudge Cells Not Reportable 03/16/16 06:01 Toxic Granulation Not Reportable 03/16/16 06:01 Toxic Vacuolation Not Reportable 03/16/16 06:01 Dohle Bodies Not Reportable 03/16/16 06:01 Pelger-Huet Anomaly Not Reportable 03/16/16 06:01 Betty Rods Not Reportable 03/16/16 06:01 Platelet Estimate Appears normal 03/16/16 06:01 Clumped Platelets Not Reportable 03/16/16 06:01 Plt Clumps, EDTA Not Reportable 03/16/16 06:01 Large Platelets Not Reportable 03/16/16 06:01 Giant Platelets Not Reportable 03/16/16 06:01 Platelet Satelliting Not Reportable 03/16/16 06:01 Plt Morphology Comment Not Reportable 03/16/16 06:01 RBC Morphology Not Reportable 03/16/16 06:01 Dimorphic RBCs Not Reportable 03/16/16 06:01 Polychromasia Few 03/16/16 06:01 Hypochromasia Not Reportable 03/16/16 06:01 Poikilocytosis Not Reportable 03/16/16 06:01 Anisocytosis 1+ 03/16/16 06:01 Microcytosis Not Reportable 03/16/16 06:01 Macrocytosis Not Reportable 03/16/16 06:01 Spherocytes Not Reportable 03/16/16 06:01 Pappenheimer Bodies Not Reportable 03/16/16 06:01 Sickle Cells Not Reportable 03/16/16 06:01 Target Cells Few 03/16/16 06:01 Tear Drop Cells Rare 03/16/16 06:01 Ovalocytes Not Reportable 03/16/16 06:01 Helmet Cells Not Reportable 03/16/16 06:01 [place] Bodies Not Reportable 03/16/16 06:01 [place] Rings Not Reportable 03/16/16 06:01 Tim Cells Not Reportable 03/16/16 06:01 Bite Cells Not Reportable 03/16/16 06:01 Crenated Cell Not Reportable 03/16/16 06:01 Elliptocytes Not Reportable 03/16/16 06:01 Acanthocytes (Spur) Not Reportable 03/16/16 06:01 Rouleaux Not Reportable 03/16/16 06:01 Hemoglobin C Crystals Not Reportable 03/16/16 06:01 Schistocytes Not Reportable 03/16/16 06:01 Malaria parasites Not Reportable 03/16/16 06:01 Matthew Bodies Not Reportable 03/16/16 06:01 Hem Pathologist Commnt No 03/16/16 06:01 PT 13.0 Sec. (12.2-14.9) 03/12/16 09:50 INR 0.99 (0.87-1.13) 03/12/16 09:50 APTT 38.8 Sec. (24.2-36.6) H 03/12/16 09:50 POC ABG pH 7.365 (7.35-7.45) 03/20/16 21:00 POC ABG pCO2 25.9 (35-45) L 03/20/16 21:00 POC ABG pO2 90 (80-105) 03/20/16 21:00 POC ABG HCO3 14.8 03/20/16 21:00 POC ABG Total CO2 16 03/20/16 21:00 POC ABG O2 Sat 97 03/20/16 21:00 POC ABG Base Excess -11 03/20/16 21:00 FiO2 31 % 03/20/16 21:00 Sodium 141 mmol/L (137-145) 03/24/16 06:44 Potassium 4.3 mmol/L (3.6-5.0) D 03/24/16 06:44 Chloride 105.3 mmol/L (98-107) 03/24/16 06:44 Carbon Dioxide 29 mmol/L (22-30) 03/24/16 06:44 Anion Gap 11 mmol/L 03/24/16 06:44 BUN 10 mg/dL (7-17) 03/24/16 06:44 Creatinine 0.5 mg/dL (0.7-1.2) L 03/24/16 06:44 Estimated GFR > 60 ml/min 03/24/16 06:44 BUN/Creatinine Ratio 20.00 % 03/24/16 06:44 Glucose 123 mg/dL (65-100) H 03/24/16 06:44 POC Glucose 127 (70-105) H 03/24/16 06:08 Osmolality 301 Mosm/kg 03/17/16 23:50 Lactic Acid 1.7 mmol/L (0.7-2.0) 03/03/16 02:43 Uric Acid 8.4 mg/dL (3.5-7.6) H 03/17/16 23:50 Calcium 6.4 mg/dL (8.4-10.2) L 03/24/16 06:44 Ionized Calcium 4.9 mg/dL (4.8-5.6) 03/17/16 20:53 Phosphorus 4.6 mg/dL (2.5-4.5) H 03/21/16 04:45 Magnesium 1.6 mg/dL (1.7-2.3) L 03/21/16 04:45 Total Bilirubin 1.4 mg/dL (0.1-1.2) H 03/05/16 07:39 AST 38 units/L (5-40) 03/05/16 07:39 ALT 17 units/L (7-56) 03/05/16 07:39 Alkaline Phosphatase 105 units/L (35-129) 03/05/16 07:39 Ammonia 58.0 umol/L (25-60) 03/22/16 19:50 Total Creatine Kinase 42 units/L (30-135) 03/02/16 18:35 CK-MB (CK-2) < 1.0 ng/mL (0.0-4.0) 03/02/16 18:35 CK-MB (CK-2) Rel Index 2.3 (0-4) 03/02/16 18:35 Troponin T < 0.010 ng/mL (0.00-0.029) 03/02/16 18:35 Total Protein 5.9 g/dL (6.3-8.2) L 03/05/16 07:39 Albumin 2.4 g/dL (3.9-5) L 03/05/16 07:39 Albumin/Globulin Ratio 0.7 % 03/05/16 07:39 TSH 0.427 mlU/mL (0.270-4.200) 03/04/16 19:38 Free T4 1.36 ng/dL (0.76-1.46) 03/02/16 18:35 Urine Color Yellow (Yellow) 03/22/16 17:47 Urine Turbidity Cloudy (Clear) 03/22/16 17:47 Urine pH 6.0 (5.0-7.0) 03/22/16 17:47 Ur Specific [place] 1.012 (1.003-1.030) 03/22/16 17:47 Urine Protein <15 mg/dl mg/dL (Negative) 03/22/16 17:47 Urine Glucose (UA) Neg mg/dL (Negative) 03/22/16 17:47 Urine Ketones Neg mg/dL (Negative) 03/22/16 17:47 Urine Blood Lg (Negative) 03/22/16 17:47 Urine Nitrite Neg (Negative) 03/22/16 17:47 Urine Bilirubin Neg (Negative) 03/22/16 17:47 Urine Ictotest Positive (Negative) 03/02/16 20:44 Urine Urobilinogen < 2.0 mg/dL (<2.0) 03/22/16 17:47 Ur Leukocyte Esterase Lg (Negative) 03/22/16 17:47 Urine WBC (Auto) 138.0 /HPF (0.0-6.0) H 03/22/16 17:47 Urine RBC (Auto) > 182.0 /HPF (0.0-6.0) 03/22/16 17:47 U Epithel Cells (Auto) 1.0 /HPF (0-13.0) 03/22/16 17:47 Urine Bacteria (Auto) 3+ /HPF (Negative) 03/22/16 17:47 Urine WBC Clumps 3+ /HPF 03/22/16 17:47 Urine Mucus Few /HPF 03/22/16 17:47 CSF Appearance Clear 03/12/16 Unknown CSF Color Colorless 03/12/16 Unknown CSF WBC 0 /mm3 (1-10) 03/12/16 Unknown CSF RBC 102 /mm3 (0-0) 03/12/16 Unknown CSF Seg Neutrophils 0 % (0-6) 03/12/16 Unknown CSF Lymphocytes % 0 % (40-80) 03/12/16 Unknown CSF Reactive Lymphs 0 % 03/12/16 Unknown CSF Monocytes % 0 % (15-45) 03/12/16 Unknown CSF Eosinophils % 0 % 03/12/16 Unknown CSF Basophils 0 % 03/12/16 Unknown CSF Comment No cells seen 03/12/16 Unknown CSF Pathologist Review C 03/12/16 Unknown CSF Glucose 59 mg/dL 03/12/16 Unknown CSF Total Protein 48 mg/dL 03/12/16 Unknown Immunofix Electrophor see below (()) 03/17/16 23:50 JAROD Screen Negative (Negative) 03/17/16 23:50 Blood Type B POSITIVE 03/19/16 09:30 Antibody Screen Negative 03/19/16 09:30 Crossmatch See Detail 03/19/16 09:30
[2016-03-25] MEDS: NOVOLOG SUB-Q SCH ×4 (00:31→18:22)
[2016-03-25 05:21] LABS: Hematocrit 30.8 % (30.3-42.9); Mean Corpuscular HGB Conc 32 % (30-34); Mean Corpuscular Hemoglobin 30 pg (28-32); Mean Corpuscular Volume 92 fl (79-97); Platelet Count 304 K/mm3 (140-440); Red Blood Count 3.34 M/mm3 (3.65-5.03); Red Cell Distribution Width 16.1 % (13.2-15.2)
[2016-03-25 05:38] LABS: Anion Gap 13 mmol/L; Blood Urea Nitrogen 8 mg/dL (7-17); Calcium 6.3 mg/dL (8.4-10.2); Carbon Dioxide 26 mmol/L (22-30); Chloride 106.2 mmol/L (98-107); Glucose 90 mg/dL (65-100); Potassium 4.1 mmol/L (3.6-5.0); Sodium 141 mmol/L (137-145); White Blood Count 25.2 K/mm3 (4.5-11.0)
[2016-03-25] MEDS: HEPARIN SUB-Q SCH ×3 (05:40→22:28)
[2016-03-25] MEDS: BROVANA NEBU IH SCH ×2 (08:52→20:25)
[2016-03-25] MEDS: PULMICORT IH SCH ×2 (08:52→20:25)
--- NOTE | 2016-03-25 10:17 | Progress Note ---
Assessment and Plan Current antibiotics: None Previous antibiotics: Zosyn 4.5 grams IV q8h 03/03-03/07 Levaquin 750 mg IV q24h 03/03-03/06 ASSESSMENT: Edith Coelho is a 60-year-old female with hypertension, obstructive sleep apnea and COPD who was admitted to [facility] on 03/02/16 with a one-month history of decreased appetite and increasing weakness. She has had a persistent leukocytosis. Problem list: 1. Leukocytosis -Likely reactive secondary to whatever is causing her encephalopathy: ? ETOH withdrawal, etc. -Rule out infection although work up negative to date and no obvious source on exam -Rule out primary hematologic reason 2. AMS -Rule out toxic metabolic encephalopathy -Rule out ETOH withdrawal -Patient is still behaving as if there is some sort of neurologic etiology to her illness although none has been uncovered to date -MRI with no obvious abnormalities. -CSF normal although no serologies sent 3. Pyuria & previous urine culture growing E coli -Likely secondary to chronic Gonzalez and not urinary tract infection 4. MICAH -Resolved 5. Bilateral hydronephrosis -Seen on 03/21 CT scan -Resolved with bladder decompression PLAN: 1. Continue to follow off of antibiotics 2. Would consider heme consult as well as bone marrow 3. Continued supportive measures 4. If patient does not clinically improve, may need to consider transfer to a facility where a thorough neurologic evaluation can be done Bayron Avitia MD [facility] Office: [phone] Subjective Date of service: 03/25/16 Principal diagnosis: AMS/dysphagia/malnutrition Interval history: Sleep but easily aroused and continues to be responsive but difficult to understand her speech. No new problems overnight reported by the nursing staff. Objective - Exam Narrative Exam: GENERAL: Well-developed, cachectic female who is in no acute distress but quite lethargic and does not follow commands. HEAD: Normocephalic. No lesions seen. EYES: Pupils are equal reactive to light and accommodation. There is no scleral icterus. Optic fundi are not examined. There is bilateral arcus senilis. EARS: Tympanic membranes are normal. THROAT: Oropharynx is normal with no evidence of oral candidiasis or pharyngitis. Poor dentition but no obvious dental infection seen. Some bleeding from the upper lip. NECK: Supple. No enlargement of the thyroid gland. No significant cervical lymphadenopathy. No jugular venous distention at 30. LUNGS: Clear with no adventitious sounds. HEART: Regular rate. S1 and S2 are normal. There are no murmurs, gallops, clicks or rubs heard. ABDOMEN: Soft, slightly distended and mildly, tender. Liver and spleen are not palpably enlarged or tender. No palpable masses. No ascites. Bowel sounds are normoactive. RECTAL: Not examined EXTREMITIES: No rash, peripheral lymphadenopathy, clubbing or edema. : Diaper in place. NEUROLOGIC: No focal findings. Follows simple commands - Constitutional Vitals: Vital Signs Temp Pulse Resp BP Pulse Ox 99.8 F H 96 H 16 126/90 98 03/25/16 07:20 03/25/16 09:00 03/25/16 09:00 03/25/16 07:20 03/25/16 08:59 Temperature -Last 24 Hours Temperature 99.8 F Temperature 99.8 F Temperature 98.7 F - Labs CBC & Chem 7: 03/25/16 04:50 03/25/16 04:50 Labs: Abnormal lab results Microbiology 03/22/16 17:47 Urine,Gonzalez [place] Urine Culture - > 100,000 mixed fredrick compatible with contamination 03/21/16 15:31 Stool Stool Occult Blood (MURALI) - Final 03/12/16 Unknown Cerebral Spinal Fluid CSF Culture - No growth 03/04/16 09:18 Peripheral/Venous Blood Culture - Final NO GROWTH AFTER 5 DAYS 03/04/16 09:01 Peripheral/Venous Blood Culture - Final NO GROWTH AFTER 5 DAYS 03/04/16 Unknown Urine,Clean Catch Urine Culture - Final Escherichia Coli
[2016-03-25] MEDS: TENORMIN PO SCH (10:59)
[2016-03-25] MEDS: FOLVITE PO SCH (10:59)
[2016-03-25] MEDS: VITAMIN B-1 FEEDTUBE SCH (11:00)
--- NOTE | 2016-03-25 11:21 | Progress Note ---
Assessment and Plan - Patient Problems (1) Metabolic encephalopathy Current Visit: Yes Status: Acute Plan to address problem: Patient had acute metabolic encephalopathy. Patient was lethargic. Confused workup so far is negative. MRI shows no acute intracranial abnormality. Patient had lumbar puncture and CSF analysis was negative (2) UTI (urinary tract infection) Current Visit: Yes Status: Acute Plan to address problem: Patient had urine cultures that were positive for Escherichia coli 3 weeks ago. Patient completed IV antibiotics and was evaluated by infectious disease who recommended to monitor off antibiotics. Patient most recent urine culture shows no signs of Escherichia coli (3) Anemia Current Visit: Yes Status: Acute Plan to address problem: Patient has anemia probably secondary to chronic disease. We'll continue to follow hemoglobin and hematocrit. We will also get hematology consult. And possible bone marrow aspirate (4) Hydronephrosis Current Visit: Yes Status: Acute Plan to address problem: Patient had bilateral hydronephrosis on CT of abdomen. Urology was consulted. The case was discussed with Dr. Prabhakar and he recommended repeat CT scan of the abdomen. We'll follow CT scan results (5) Leukocytosis Current Visit: Yes Status: Acute Plan to address problem: White blood cell count is 25.2 at this time. His fluctuating. Patient has no fever. We'll continue to monitor off antibiotics as recommended by infectious disease (6) Dysphagia Current Visit: Yes Status: Acute Plan to address problem: Patient had dysphasia possibly secondary to metabolic encephalopathy. PEG tube was placed. Tube feedings have been initiated History Interval history: Patient lying In bed awake alert makes noises at times. Sister is at bedside. Sister states that she feel the patient is improving daily with small changes Hospitalist Physical - Constitutional Vitals: Temp Pulse Resp BP Pulse Ox 99.8 F H 95 H 16 120/90 98 03/25/16 07:20 03/25/16 10:59 03/25/16 09:00 03/25/16 10:59 03/25/16 08:59 General appearance: Present: no acute distress, well-nourished - EENT Eyes: Present: PERRL, EOM intact - Neck Neck: Present: supple, normal ROM - Respiratory Respiratory effort: normal Respiratory: bilateral: CTA - Cardiovascular Rhythm: regular Heart Sounds: Present: S1 & S2 - Extremities Extremities: no ischemia, No edema - Abdominal General gastrointestinal: soft, non-distended, normal bowel sounds Results - Labs CBC & Chem 7: 03/25/16 04:50 03/25/16 04:50 Labs: Laboratory Last Values WBC 25.2 K/mm3 (4.5-11.0) H 03/25/16 04:50 RBC 3.34 M/mm3 (3.65-5.03) L 03/25/16 04:50 Hgb 10.0 gm/dl (10.1-14.3) L 03/25/16 04:50 Hct 30.8 % (30.3-42.9) 03/25/16 04:50 MCV 92 fl (79-97) 03/25/16 04:50 MCH 30 pg (28-32) 03/25/16 04:50 MCHC 32 % (30-34) 03/25/16 04:50 RDW 16.1 % (13.2-15.2) H 03/25/16 04:50 Plt Count 304 K/mm3 (140-440) 03/25/16 04:50 Lymph % (Auto) 12.8 % (13.4-35.0) L 03/15/16 06:40 [place] % (Auto) 8.2 % (0.0-7.3) H 03/15/16 06:40 Eos % (Auto) 3.0 % (0.0-4.3) 03/15/16 06:40 Baso % (Auto) 0.5 % (0.0-1.8) 03/15/16 06:40 Lymph # 1.7 K/mm3 (1.2-5.4) 03/15/16 06:40 [place] # 1.1 K/mm3 (0.0-0.8) H 03/15/16 06:40 Eos # 0.4 K/mm3 (0.0-0.4) 03/15/16 06:40 Baso # 0.1 K/mm3 (0.0-0.1) 03/15/16 06:40 Add Manual Diff Complete 03/16/16 06:01 Total Counted 200 03/16/16 06:01 Seg Neutrophils % 75.5 % (40.0-70.0) H 03/15/16 06:40 Seg Neuts % (Manual) 91.5 % (40.0-70.0) H 03/16/16 06:01 Band Neutrophils % 4.0 % 03/16/16 06:01 Lymphocytes % (Manual) 2.5 % (13.4-35.0) L 03/16/16 06:01 Reactive Lymphs % (Man) 0 % 03/16/16 06:01 Monocytes % (Manual) 1.5 % (0.0-7.3) 03/16/16 06:01 Eosinophils % (Manual) 0 % (0.0-4.3) 03/16/16 06:01 Basophils % (Manual) 0.5 % (0.0-1.8) 03/16/16 06:01 Metamyelocytes % 0 % 03/16/16 06:01 Myelocytes % 0 % 03/16/16 06:01 Promyelocytes % 0 % 03/16/16 06:01 Blast Cells % 0 % 03/16/16 06:01 Nucleated RBC % Not Reportable 03/16/16 06:01 Seg Neutrophils # 10.2 K/mm3 (1.8-7.7) H 03/15/16 06:40 Seg Neutrophils # Man 25.4 K/mm3 (1.8-7.7) H 03/16/16 06:01 Band Neutrophils # 1.1 K/mm3 03/16/16 06:01 Lymphocytes # (Manual) 0.7 K/mm3 (1.2-5.4) L 03/16/16 06:01 Abs React Lymphs (Man) 0.0 K/mm3 03/16/16 06:01 Monocytes # (Manual) 0.4 K/mm3 (0.0-0.8) 03/16/16 06:01 Eosinophils # (Manual) 0.0 K/mm3 (0.0-0.4) 03/16/16 06:01 Basophils # (Manual) 0.1 K/mm3 (0.0-0.1) 03/16/16 06:01 Metamyelocytes # 0.0 K/mm3 03/16/16 06:01 Myelocytes # 0.0 K/mm3 03/16/16 06:01 Promyelocytes # 0.0 K/mm3 03/16/16 06:01 Blast Cells # 0.0 K/mm3 03/16/16 06:01 WBC Morphology Not Reportable 03/16/16 06:01 Hypersegmented Neuts Not Reportable 03/16/16 06:01 Hyposegmented Neuts Not Reportable 03/16/16 06:01 Hypogranular Neuts Not Reportable 03/16/16 06:01 Smudge Cells Not Reportable 03/16/16 06:01 Toxic Granulation Not Reportable 03/16/16 06:01 Toxic Vacuolation Not Reportable 03/16/16 06:01 Dohle Bodies Not Reportable 03/16/16 06:01 Pelger-[place]uet Anomaly Not Reportable 03/16/16 06:01 Betty Rods Not Reportable 03/16/16 06:01 Platelet Estimate Appears normal 03/16/16 06:01 Clumped Platelets Not Reportable 03/16/16 06:01 Plt Clumps, EDTA Not Reportable 03/16/16 06:01 Large Platelets Not Reportable 03/16/16 06:01 Giant Platelets Not Reportable 03/16/16 06:01 Platelet Satelliting Not Reportable 03/16/16 06:01 Plt Morphology Comment Not Reportable 03/16/16 06:01 RBC Morphology Not Reportable 03/16/16 06:01 Dimorphic RBCs Not Reportable 03/16/16 06:01 Polychromasia Few 03/16/16 06:01 Hypochromasia Not Reportable 03/16/16 06:01 Poikilocytosis Not Reportable 03/16/16 06:01 Anisocytosis 1+ 03/16/16 06:01 Microcytosis Not Reportable 03/16/16 06:01 Macrocytosis Not Reportable 03/16/16 06:01 Spherocytes Not Reportable 03/16/16 06:01 Pappenheimer Bodies Not Reportable 03/16/16 06:01 Sickle Cells Not Reportable 03/16/16 06:01 Target Cells Few 03/16/16 06:01 Tear Drop Cells Rare 03/16/16 06:01 Ovalocytes Not Reportable 03/16/16 06:01 Helmet Cells Not Reportable 03/16/16 06:01 [place] Bodies Not Reportable 03/16/16 06:01 [place] Rings Not Reportable 03/16/16 06:01 Tim Cells Not Reportable 03/16/16 06:01 Bite Cells Not Reportable 03/16/16 06:01 Crenated Cell Not Reportable 03/16/16 06:01 Elliptocytes Not Reportable 03/16/16 06:01 Acanthocytes (Spur) Not Reportable 03/16/16 06:01 Rouleaux Not Reportable 03/16/16 06:01 Hemoglobin C Crystals Not Reportable 03/16/16 06:01 Schistocytes Not Reportable 03/16/16 06:01 Malaria parasites Not Reportable 03/16/16 06:01 Matthew Bodies Not Reportable 03/16/16 06:01 Hem Pathologist Commnt No 03/16/16 06:01 PT 13.0 Sec. (12.2-14.9) 03/12/16 09:50 INR 0.99 (0.87-1.13) 03/12/16 09:50 APTT 38.8 Sec. (24.2-36.6) H 03/12/16 09:50 POC ABG pH 7.365 (7.35-7.45) 03/20/16 21:00 POC ABG pCO2 25.9 (35-45) L 03/20/16 21:00 POC ABG pO2 90 (80-105) 03/20/16 21:00 POC ABG HCO3 14.8 03/20/16 21:00 POC ABG Total CO2 16 03/20/16 21:00 POC ABG O2 Sat 97 03/20/16 21:00 POC ABG Base Excess -11 03/20/16 21:00 FiO2 31 % 03/20/16 21:00 Sodium 141 mmol/L (137-145) 03/25/16 04:50 Potassium 4.1 mmol/L (3.6-5.0) 03/25/16 04:50 Chloride 106.2 mmol/L (98-107) 03/25/16 04:50 Carbon Dioxide 26 mmol/L (22-30) 03/25/16 04:50 Anion Gap 13 mmol/L 03/25/16 04:50 BUN 8 mg/dL (7-17) 03/25/16 04:50 Creatinine 0.4 mg/dL (0.7-1.2) L 03/25/16 04:50 Estimated GFR > 60 ml/min 03/25/16 04:50 BUN/Creatinine Ratio 20.00 % 03/25/16 04:50 Glucose 90 mg/dL (65-100) 03/25/16 04:50 POC Glucose 106 (70-105) H 03/25/16 06:14 Osmolality 301 Mosm/kg 03/17/16 23:50 Lactic Acid 1.7 mmol/L (0.7-2.0) 03/03/16 02:43 Uric Acid 8.4 mg/dL (3.5-7.6) H 03/17/16 23:50 Calcium 6.3 mg/dL (8.4-10.2) L 03/25/16 04:50 Ionized Calcium 4.9 mg/dL (4.8-5.6) 03/17/16 20:53 Phosphorus 4.6 mg/dL (2.5-4.5) H 03/21/16 04:45 Magnesium 1.6 mg/dL (1.7-2.3) L 03/21/16 04:45 Total Bilirubin 1.4 mg/dL (0.1-1.2) H 03/05/16 07:39 AST 38 units/L (5-40) 03/05/16 07:39 ALT 17 units/L (7-56) 03/05/16 07:39 Alkaline Phosphatase 105 units/L (35-129) 03/05/16 07:39 Ammonia 58.0 umol/L (25-60) 03/22/16 19:50 Total Creatine Kinase 42 units/L (30-135) 03/02/16 18:35 CK-MB (CK-2) < 1.0 ng/mL (0.0-4.0) 03/02/16 18:35 CK-MB (CK-2) Rel Index 2.3 (0-4) 03/02/16 18:35 Troponin T < 0.010 ng/mL (0.00-0.029) 03/02/16 18:35 Total Protein 5.9 g/dL (6.3-8.2) L 03/05/16 07:39 Albumin 2.4 g/dL (3.9-5) L 03/05/16 07:39 Albumin/Globulin Ratio 0.7 % 03/05/16 07:39 TSH 0.427 mlU/mL (0.270-4.200) 03/04/16 19:38 Free T4 1.36 ng/dL (0.76-1.46) 03/02/16 18:35 Urine Color Yellow (Yellow) 03/22/16 17:47 Urine Turbidity Cloudy (Clear) 03/22/16 17:47 Urine pH 6.0 (5.0-7.0) 03/22/16 17:47 Ur Specific [place] 1.012 (1.003-1.030) 03/22/16 17:47 Urine Protein <15 mg/dl mg/dL (Negative) 03/22/16 17:47 Urine Glucose (UA) Neg mg/dL (Negative) 03/22/16 17:47 Urine Ketones Neg mg/dL (Negative) 03/22/16 17:47 Urine Blood Lg (Negative) 03/22/16 17:47 Urine Nitrite Neg (Negative) 03/22/16 17:47 Urine Bilirubin Neg (Negative) 03/22/16 17:47 Urine Ictotest Positive (Negative) 03/02/16 20:44 Urine Urobilinogen < 2.0 mg/dL (<2.0) 03/22/16 17:47 Ur Leukocyte Esterase Lg (Negative) 03/22/16 17:47 Urine WBC (Auto) 138.0 /HPF (0.0-6.0) H 03/22/16 17:47 Urine RBC (Auto) > 182.0 /HPF (0.0-6.0) 03/22/16 17:47 U Epithel Cells (Auto) 1.0 /HPF (0-13.0) 03/22/16 17:47 Urine Bacteria (Auto) 3+ /HPF (Negative) 03/22/16 17:47 Urine WBC Clumps 3+ /HPF 03/22/16 17:47 Urine Mucus Few /HPF 03/22/16 17:47 CSF Appearance Clear 03/12/16 Unknown CSF Color Colorless 03/12/16 Unknown CSF WBC 0 /mm3 (1-10) 03/12/16 Unknown CSF RBC 102 /mm3 (0-0) 03/12/16 Unknown CSF Seg Neutrophils 0 % (0-6) 03/12/16 Unknown CSF Lymphocytes % 0 % (40-80) 03/12/16 Unknown CSF Reactive Lymphs 0 % 03/12/16 Unknown CSF Monocytes % 0 % (15-45) 03/12/16 Unknown CSF Eosinophils % 0 % 03/12/16 Unknown CSF Basophils 0 % 03/12/16 Unknown CSF Comment No cells seen 03/12/16 Unknown CSF Pathologist Review C 03/12/16 Unknown CSF Glucose 59 mg/dL 03/12/16 Unknown CSF Total Protein 48 mg/dL 03/12/16 Unknown Immunofix Electrophor see below (()) 03/17/16 23:50 JAROD Screen Negative (Negative) 03/17/16 23:50 Blood Type B POSITIVE 03/19/16 09:30 Antibody Screen Negative 03/19/16 09:30 Crossmatch See Detail 03/19/16 09:30
--- NOTE | 2016-03-25 11:47 | Progress Note ---
Assessment and Plan AMS. More alert otherwise, little changes Leukocytosis. Still persistent. Comments from ID noted. Patient be monitored off antibiotics. May need to update chest x-ray for further review Acute renal failure electrolyte imbalance . Improved acute respiratory failure . Resolved bilateral pleural effusions left and right sided hydronephrosis Recommendations Chest x-rays If he were noted repeat cultures. Follow-up CBC Subjective Date of service: 03/25/16 Principal diagnosis: AMS/dysphagia/malnutrition Interval history: Still confused but following some minor commands. Per family at the bedside only occasional cough Objective Vital Signs - 12hr 03/25/16 03/25/16 03/25/16 05:00 07:20 08:52 Temperature 99.8 F H Pulse Rate Pulse Rate [ 102 H Anterior Bilateral Throughout] Pulse Rate [ 95 H From Monitor] Respiratory 24 Rate Respiratory 18 Rate [Anterior Bilateral Throughout] Respiratory 18 Rate [Bilateral Shoulder] Blood Pressure Blood Pressure 126/90 [Right Radial Artery] O2 Sat by Pulse Oximetry 03/25/16 03/25/16 03/25/16 08:59 09:00 10:59 Temperature Pulse Rate 95 H Pulse Rate [ 96 H Anterior Bilateral Throughout] Pulse Rate [ From Monitor] Respiratory Rate Respiratory 16 Rate [Anterior Bilateral Throughout] Respiratory Rate [Bilateral Shoulder] Blood Pressure 120/90 Blood Pressure [Right Radial Artery] O2 Sat by Pulse 98 Oximetry Constitutional: alert, other (confused) ENT: oropharynx dry Neck: supple Effort: mildly labored Ascultation: Bilateral: clear, diminished breath sounds (bases) Percussion: Bilateral: not dull Cardiovascular: regular rate and rhythm Gastrointestinal: normoactive bowel sounds, soft, non-tender Extremities: cool Neurologic: pupils equal and round, unable to assess CBC and BMP: 03/25/16 04:50 03/25/16 04:50 ABG, PT/INR, D-dimer: ABG POC ABG pH 7.365 (7.35-7.45) 03/20/16 21:00 POC ABG pCO2 25.9 (35-45) L 03/20/16 21:00 POC ABG pO2 90 (80-105) 03/20/16 21:00 POC ABG HCO3 14.8 03/20/16 21:00 POC ABG Total CO2 16 03/20/16 21:00 POC ABG O2 Sat 97 03/20/16 21:00 PT/INR, D-dimer PT 13.0 Sec. (12.2-14.9) 03/12/16 09:50 INR 0.99 (0.87-1.13) 03/12/16 09:50 Abnormal lab findings: Abnormal Labs 03/03/16 03/03/16 03/04/16 15:47 15:47 05:14 WBC 19.2 H 23.1 H RBC 3.64 L Hgb Hct MCV RDW 16.5 H 16.6 H Plt Count 449 H Lymph % (Auto) [place] % (Auto) C[place] # Eos # Seg Neutrophils % Seg Neuts % (Manual) Lymphocytes % (Manual) Monocytes % (Manual) Seg Neutrophils # Seg Neutrophils # Man Lymphocytes # (Manual) Monocytes # (Manual) Eosinophils # (Manual) APTT POC ABG pH POC ABG pCO2 Sodium Potassium 2.8 L* Chloride 96.5 L Carbon Dioxide 20 L BUN Creatinine 0.6 L Glucose 139 H POC Glucose Uric Acid Calcium Phosphorus Magnesium Total Bilirubin Ammonia Total Protein Albumin Urine WBC (Auto) Crossmatch 03/04/16 03/04/16 03/04/16 05:14 09:01 19:38 WBC RBC Hgb Hct MCV RDW Plt Count Lymph % (Auto) [place] % (Auto) [place] # Eos # Seg Neutrophils % Seg Neuts % (Manual) Lymphocytes % (Manual) Monocytes % (Manual) Seg Neutrophils # Seg Neutrophils # Man Lymphocytes # (Manual) Monocytes # (Manual) Eosinophils # (Manual) APTT POC ABG pH POC ABG pCO2 Sodium 135 L Potassium 3.3 L Chloride 95.7 L Carbon Dioxide 19 L BUN Creatinine Glucose 130 H POC Glucose Uric Acid Calcium 8.0 L Phosphorus 1.4 L Magnesium 1.0 L Total Bilirubin 1.9 H Ammonia 95.0 H Total Protein Albumin 3.0 L Urine WBC (Auto) Crossmatch 03/05/16 03/05/16 03/05/16 07:39 07:39 17:59 WBC 20.3 H RBC 3.50 L Hgb Hct MCV 98 H RDW 16.1 H Plt Count Lymph % (Auto) [place] % (Auto) [place] # Eos # Seg Neutrophils % Seg Neuts % (Manual) Lymphocytes % (Manual) Monocytes % (Manual) Seg Neutrophils # Seg Neutrophils # Man Lymphocytes # (Manual) Monocytes # (Manual) Eosinophils # (Manual) APTT POC ABG pH POC ABG pCO2 Sodium Potassium 2.7 L* 3.2 L Chloride Carbon Dioxide 19 L 18 L BUN Creatinine 1.4 H D 1.4 H Glucose 131 H POC Glucose Uric Acid Calcium 7.6 L 7.3 L Phosphorus 6.7 H D Magnesium 2.6 H Total Bilirubin 1.4 H Ammonia Total Protein 5.9 L Albumin 2.4 L Urine WBC (Auto) Crossmatch 03/06/16 03/06/16 03/06/16 09:54 09:54 18:07 WBC 22.2 H RBC 3.19 L Hgb 9.9 L Hct MCV 98 H RDW 16.8 H Plt Count Lymph % (Auto) [place] % (Auto) [place] # Eos # Seg Neutrophils % Seg Neuts % (Manual) Lymphocytes % (Manual) Monocytes % (Manual) Seg Neutrophils # Seg Neutrophils # Man Lymphocytes # (Manual) Monocytes # (Manual) Eosinophils # (Manual) APTT POC ABG pH POC ABG pCO2 Sodium 150 H D Potassium 2.8 L* 2.8 L* Chloride 113.5 H Carbon Dioxide 16 L 16 L BUN Creatinine Glucose 137 H 106 H POC Glucose Uric Acid Calcium 7.4 L 7.7 L Phosphorus Magnesium Total Bilirubin Ammonia Total Protein Albumin Urine WBC (Auto) Crossmatch 03/07/16 03/07/16 03/07/16 04:53 04:53 05:43 WBC 19.7 H RBC 3.20 L Hgb 9.9 L Hct MCV RDW 16.6 H Plt Count Lymph % (Auto) [place] % (Auto) [place] # Eos # Seg Neutrophils % Seg Neuts % (Manual) Lymphocytes % (Manual) Monocytes % (Manual) Seg Neutrophils # Seg Neutrophils # Man Lymphocytes # (Manual) Monocytes # (Manual) Eosinophils # (Manual) APTT POC ABG pH POC ABG pCO2 Sodium Potassium 2.9 L* Chloride 114.1 H Carbon Dioxide 19 L BUN Creatinine Glucose 140 H POC Glucose 143 H Uric Acid Calcium 7.8 L Phosphorus Magnesium Total Bilirubin Ammonia Total Protein Albumin Urine WBC (Auto) Crossmatch 03/07/16 03/08/16 03/08/16 22:20 05:09 05:09 WBC 32.2 H RBC 3.18 L Hgb 10.0 L Hct MCV RDW 16.8 H Plt Count Lymph % (Auto) [place] % (Auto) [place] # Eos # Seg Neutrophils % Seg Neuts % (Manual) Lymphocytes % (Manual) Monocytes % (Manual) Seg Neutrophils # Seg Neutrophils # Man Lymphocytes # (Manual) Monocytes # (Manual) Eosinophils # (Manual) APTT POC ABG pH POC ABG pCO2 Sodium 155 H D Potassium 6.3 H* D 6.1 H* Chloride Carbon Dioxide 18 L BUN Creatinine 1.6 H D Glucose 213 H POC Glucose Uric Acid Calcium Phosphorus Magnesium Total Bilirubin Ammonia Total Protein Albumin Urine WBC (Auto) Crossmatch 03/08/16 03/08/16 03/08/16 09:11 16:28 17:27 WBC RBC Hgb Hct MCV RDW Plt Count Lymph % (Auto) [place] % (Auto) [place] # Eos # Seg Neutrophils % Seg Neuts % (Manual) Lymphocytes % (Manual) Monocytes % (Manual) Seg Neutrophils # Seg Neutrophils # Man Lymphocytes # (Manual) Monocytes # (Manual) Eosinophils # (Manual) APTT POC ABG pH POC ABG pCO2 Sodium 156 H Potassium Chloride 126.2 H Carbon Dioxide 19 L BUN Creatinine 1.8 H Glucose 175 H POC Glucose 204 H 130 H Uric Acid Calcium Phosphorus Magnesium Total Bilirubin Ammonia Total Protein Albumin Urine WBC (Auto) Crossmatch 03/08/16 03/09/16 03/09/16 22:06 05:47 08:00 WBC 29.9 H RBC 2.93 L Hgb 9.0 L Hct 28.4 L MCV RDW 17.4 H Plt Count Lymph % (Auto) [place] % (Auto) [place] # Eos # Seg Neutrophils % Seg Neuts % (Manual) Lymphocytes % (Manual) Monocytes % (Manual) Seg Neutrophils # Seg Neutrophils # Man Lymphocytes # (Manual) Monocytes # (Manual) Eosinophils # (Manual) APTT POC ABG pH POC ABG pCO2 Sodium Potassium Chloride Carbon Dioxide BUN Creatinine Glucose POC Glucose 192 H 206 H Uric Acid Calcium Phosphorus Magnesium Total Bilirubin Ammonia Total Protein Albumin Urine WBC (Auto) Crossmatch 03/09/16 03/09/16 03/09/16 08:00 11:33 16:03 WBC RBC Hgb Hct MCV RDW Plt Count Lymph % (Auto) [place] % (Auto) [place] # Eos # Seg Neutrophils % Seg Neuts % (Manual) Lymphocytes % (Manual) Monocytes % (Manual) Seg Neutrophils # Seg Neutrophils # Man Lymphocytes # (Manual) Monocytes # (Manual) Eosinophils # (Manual) APTT POC ABG pH POC ABG pCO2 Sodium 154 H Potassium Chloride 123.0 H Carbon Dioxide 21 L BUN 18 H Creatinine 1.9 H Glucose 179 H POC Glucose 152 H 130 H Uric Acid Calcium 8.2 L Phosphorus Magnesium Total Bilirubin Ammonia Total Protein Albumin Urine WBC (Auto) Crossmatch 03/10/16 03/10/16 03/10/16 06:16 11:53 17:22 WBC RBC Hgb Hct MCV RDW Plt Count Lymph % (Auto) [place] % (Auto) [place] # Eos # Seg Neutrophils % Seg Neuts % (Manual) Lymphocytes % (Manual) Monocytes % (Manual) Seg Neutrophils # Seg Neutrophils # Man Lymphocytes # (Manual) Monocytes # (Manual) Eosinophils # (Manual) APTT POC ABG pH POC ABG pCO2 Sodium Potassium Chloride Carbon Dioxide BUN Creatinine Glucose POC Glucose 170 H 141 H 159 H Uric Acid Calcium Phosphorus Magnesium Total Bilirubin Ammonia Total Protein Albumin Urine WBC (Auto) Crossmatch 03/10/16 03/10/16 03/10/16 Unknown Unknown Unknown WBC 22.8 H RBC 2.70 L Hgb 8.7 L Hct 26.4 L MCV 98 H RDW 17.1 H Plt Count Lymph % (Auto) [place] % (Auto) [place] # Eos # Seg Neutrophils % Seg Neuts % (Manual) 78.0 H Lymphocytes % (Manual) 12.0 L Monocytes % (Manual) Seg Neutrophils # Seg Neutrophils # Man 17.8 H Lymphocytes # (Manual) Monocytes # (Manual) 1.1 H Eosinophils # (Manual) 0.9 H APTT POC ABG pH POC ABG pCO2 Sodium 147 H Potassium Chloride 115.0 H Carbon Dioxide 20 L BUN 22 H Creatinine 1.6 H Glucose 142 H POC Glucose Uric Acid Calcium 7.7 L Phosphorus Magnesium 1.5 L Total Bilirubin Ammonia Total Protein Albumin Urine WBC (Auto) Crossmatch 03/11/16 03/11/16 03/11/16 00:11 00:50 06:15 WBC 24.3 H RBC 2.93 L Hgb 9.0 L Hct 28.1 L MCV RDW 17.4 H Plt Count Lymph % (Auto) [place] % (Auto) [place] # Eos # Seg Neutrophils % Seg Neuts % (Manual) 74.0 H Lymphocytes % (Manual) 10.0 L Monocytes % (Manual) 8.0 H Seg Neutrophils # Seg Neutrophils # Man 18.0 H Lymphocytes # (Manual) Monocytes # (Manual) 1.9 H Eosinophils # (Manual) 1.0 H APTT POC ABG pH POC ABG pCO2 Sodium Potassium Chloride Carbon Dioxide BUN Creatinine Glucose POC Glucose 143 H 136 H Uric Acid Calcium Phosphorus Magnesium Total Bilirubin Ammonia Total Protein Albumin Urine WBC (Auto) Crossmatch 03/11/16 03/12/16 03/12/16 07:24 09:50 12:10 WBC RBC Hgb Hct MCV RDW Plt Count Lymph % (Auto) [place] % (Auto) [place] # Eos # Seg Neutrophils % Seg Neuts % (Manual) Lymphocytes % (Manual) Monocytes % (Manual) Seg Neutrophils # Seg Neutrophils # Man Lymphocytes # (Manual) Monocytes # (Manual) Eosinophils # (Manual) APTT 38.8 H POC ABG pH POC ABG pCO2 Sodium 135 L D Potassium Chloride Carbon Dioxide BUN 27 H Creatinine 1.8 H Glucose 136 H POC Glucose 111 H Uric Acid Calcium 7.5 L Phosphorus Magnesium 1.4 L Total Bilirubin Ammonia Total Protein Albumin Urine WBC (Auto) Crossmatch 03/12/16 03/12/16 03/13/16 16:39 21:45 05:00 WBC 19.2 H RBC 2.68 L Hgb 8.5 L Hct 25.7 L MCV RDW 17.4 H Plt Count Lymph % (Auto) 9.3 L [place] % (Auto) 8.7 H C[place] # 1.7 H Eos # 0.5 H Seg Neutrophils % 78.6 H Seg Neuts % (Manual) Lymphocytes % (Manual) Monocytes % (Manual) Seg Neutrophils # 15.1 H Seg Neutrophils # Man Lymphocytes # (Manual) Monocytes # (Manual) Eosinophils # (Manual) APTT POC ABG pH POC ABG pCO2 Sodium Potassium Chloride Carbon Dioxide BUN Creatinine Glucose POC Glucose 112 H 124 H Uric Acid Calcium Phosphorus Magnesium Total Bilirubin Ammonia Total Protein Albumin Urine WBC (Auto) Crossmatch 03/13/16 03/13/16 03/14/16 05:00 16:19 06:21 WBC RBC Hgb Hct MCV RDW Plt Count Lymph % (Auto) [place] % (Auto) [place] # Eos # Seg Neutrophils % Seg Neuts % (Manual) Lymphocytes % (Manual) Monocytes % (Manual) Seg Neutrophils # Seg Neutrophils # Man Lymphocytes # (Manual) Monocytes # (Manual) Eosinophils # (Manual) APTT POC ABG pH POC ABG pCO2 Sodium Potassium Chloride Carbon Dioxide 20 L BUN 31 H Creatinine 2.1 H Glucose POC Glucose 61 L 125 H Uric Acid Calcium 7.8 L Phosphorus Magnesium 3.1 H Total Bilirubin Ammonia Total Protein Albumin Urine WBC (Auto) Crossmatch 03/14/16 03/14/16 03/15/16 13:48 18:34 00:02 WBC RBC Hgb Hct MCV RDW Plt Count Lymph % (Auto) [place] % (Auto) [place] # Eos # Seg Neutrophils % Seg Neuts % (Manual) Lymphocytes % (Manual) Monocytes % (Manual) Seg Neutrophils # Seg Neutrophils # Man Lymphocytes # (Manual) Monocytes # (Manual) Eosinophils # (Manual) APTT POC ABG pH POC ABG pCO2 Sodium Potassium Chloride Carbon Dioxide BUN Creatinine Glucose POC Glucose 107 H 124 H 138 H Uric Acid Calcium Phosphorus Magnesium Total Bilirubin Ammonia Total Protein Albumin Urine WBC (Auto) Crossmatch 03/15/16 03/15/16 03/15/16 06:40 06:40 07:23 WBC 13.5 H RBC 2.32 L Hgb 7.5 L Hct 22.3 L MCV RDW 17.5 H Plt Count Lymph % (Auto) 12.8 L [place] % (Auto) 8.2 H C[place] # 1.1 H Eos # Seg Neutrophils % 75.5 H Seg Neuts % (Manual) Lymphocytes % (Manual) Monocytes % (Manual) Seg Neutrophils # 10.2 H Seg Neutrophils # Man Lymphocytes # (Manual) Monocytes # (Manual) Eosinophils # (Manual) APTT POC ABG pH POC ABG pCO2 Sodium Potassium Chloride 110.8 H Carbon Dioxide 16 L BUN 28 H Creatinine 2.4 H Glucose POC Glucose 112 H Uric Acid Calcium 7.0 L Phosphorus Magnesium Total Bilirubin Ammonia Total Protein Albumin Urine WBC (Auto) Crossmatch 03/15/16 03/15/16 03/15/16 11:46 16:32 20:52 WBC RBC Hgb Hct MCV RDW Plt Count Lymph % (Auto) [place] % (Auto) [place] # Eos # Seg Neutrophils % Seg Neuts % (Manual) Lymphocytes % (Manual) Monocytes % (Manual) Seg Neutrophils # Seg Neutrophils # Man Lymphocytes # (Manual) Monocytes # (Manual) Eosinophils # (Manual) APTT POC ABG pH POC ABG pCO2 Sodium Potassium Chloride Carbon Dioxide BUN Creatinine Glucose POC Glucose 138 H 127 H 118 H Uric Acid Calcium Phosphorus Magnesium Total Bilirubin Ammonia Total Protein Albumin Urine WBC (Auto) Crossmatch 03/16/16 03/16/16 03/16/16 06:01 06:01 06:24 WBC 27.8 H RBC 2.41 L Hgb 7.4 L Hct 23.2 L MCV RDW 18.2 H Plt Count Lymph % (Auto) [place] % (Auto) [place] # Eos # Seg Neutrophils % Seg Neuts % (Manual) 91.5 H Lymphocytes % (Manual) 2.5 L Monocytes % (Manual) Seg Neutrophils # Seg Neutrophils # Man 25.4 H Lymphocytes # (Manual) 0.7 L Monocytes # (Manual) Eosinophils # (Manual) APTT POC ABG pH POC ABG pCO2 Sodium Potassium Chloride 113.0 H Carbon Dioxide 15 L BUN 30 H Creatinine 2.6 H Glucose 130 H POC Glucose 159 H Uric Acid Calcium 6.8 L Phosphorus Magnesium Total Bilirubin Ammonia Total Protein Albumin Urine WBC (Auto) Crossmatch 03/16/16 03/16/16 03/16/16 11:34 16:37 23:46 WBC RBC Hgb Hct MCV RDW Plt Count Lymph % (Auto) [place] % (Auto) [place] # Eos # Seg Neutrophils % Seg Neuts % (Manual) Lymphocytes % (Manual) Monocytes % (Manual) Seg Neutrophils # Seg Neutrophils # Man Lymphocytes # (Manual) Monocytes # (Manual) Eosinophils # (Manual) APTT POC ABG pH POC ABG pCO2 Sodium Potassium Chloride Carbon Dioxide BUN Creatinine Glucose POC Glucose 164 H 109 H 114 H Uric Acid Calcium Phosphorus Magnesium Total Bilirubin Ammonia Total Protein Albumin Urine WBC (Auto) Crossmatch 03/17/16 03/17/16 03/17/16 11:33 22:11 23:50 WBC RBC Hgb Hct MCV RDW Plt Count Lymph % (Auto) [place] % (Auto) [place] # Eos # Seg Neutrophils % Seg Neuts % (Manual) Lymphocytes % (Manual) Monocytes % (Manual) Seg Neutrophils # Seg Neutrophils # Man Lymphocytes # (Manual) Monocytes # (Manual) Eosinophils # (Manual) APTT POC ABG pH 7.319 L POC ABG pCO2 28.6 L Sodium Potassium Chloride 111.6 H Carbon Dioxide 16 L BUN 34 H Creatinine 2.7 H Glucose 115 H POC Glucose 117 H Uric Acid 8.4 H Calcium 7.4 L Phosphorus Magnesium Total Bilirubin Ammonia Total Protein Albumin Urine WBC (Auto) Crossmatch 03/17/16 03/18/16 03/19/16 23:50 11:11 05:20 WBC 18.2 H RBC 2.11 L Hgb 6.7 L Hct 20.1 L MCV RDW 17.5 H Plt Count Lymph % (Auto) [place] % (Auto) [place] # Eos # Seg Neutrophils % Seg Neuts % (Manual) Lymphocytes % (Manual) Monocytes % (Manual) Seg Neutrophils # Seg Neutrophils # Man Lymphocytes # (Manual) Monocytes # (Manual) Eosinophils # (Manual) APTT POC ABG pH 7.320 L POC ABG pCO2 29.9 L Sodium Potassium Chloride Carbon Dioxide BUN Creatinine Glucose POC Glucose 124 H Uric Acid Calcium Phosphorus Magnesium Total Bilirubin Ammonia Total Protein Albumin Urine WBC (Auto) Crossmatch 03/19/16 03/19/16 03/19/16 05:20 06:11 09:30 WBC RBC Hgb Hct MCV RDW Plt Count Lymph % (Auto) [place] % (Auto) [place] # Eos # Seg Neutrophils % Seg Neuts % (Manual) Lymphocytes % (Manual) Monocytes % (Manual) Seg Neutrophils # Seg Neutrophils # Man Lymphocytes # (Manual) Monocytes # (Manual) Eosinophils # (Manual) APTT POC ABG pH POC ABG pCO2 Sodium Potassium Chloride 114.1 H Carbon Dioxide 16 L BUN 32 H Creatinine 2.2 H Glucose POC Glucose 63 L Uric Acid Calcium 7.7 L Phosphorus Magnesium Total Bilirubin Ammonia Total Protein Albumin Urine WBC (Auto) Crossmatch See Detail 03/19/16 03/19/16 03/19/16 12:14 16:30 23:57 WBC RBC Hgb Hct MCV RDW Plt Count Lymph % (Auto) [place] % (Auto) [place] # Eos # Seg Neutrophils % Seg Neuts % (Manual) Lymphocytes % (Manual) Monocytes % (Manual) Seg Neutrophils # Seg Neutrophils # Man Lymphocytes # (Manual) Monocytes # (Manual) Eosinophils # (Manual) APTT POC ABG pH POC ABG pCO2 Sodium Potassium Chloride Carbon Dioxide BUN Creatinine Glucose POC Glucose 138 H 133 H 190 H Uric Acid Calcium Phosphorus Magnesium Total Bilirubin Ammonia Total Protein Albumin Urine WBC (Auto) Crossmatch 03/20/16 03/20/16 03/20/16 06:38 11:52 15:36 WBC RBC Hgb Hct MCV RDW Plt Count Lymph % (Auto) [place] % (Auto) [place] # Eos # Seg Neutrophils % Seg Neuts % (Manual) Lymphocytes % (Manual) Monocytes % (Manual) Seg Neutrophils # Seg Neutrophils # Man Lymphocytes # (Manual) Monocytes # (Manual) Eosinophils # (Manual) APTT POC ABG pH POC ABG pCO2 Sodium Potassium Chloride Carbon Dioxide BUN Creatinine Glucose POC Glucose 163 H 138 H 151 H Uric Acid Calcium Phosphorus Magnesium Total Bilirubin Ammonia Total Protein Albumin Urine WBC (Auto) Crossmatch 03/20/16 03/20/16 03/20/16 21:00 23:55 Unknown WBC 30.1 H RBC 3.23 L Hgb Hct 29.6 L D MCV RDW 16.2 H Plt Count Lymph % (Auto) [place] % (Auto) [place] # Eos # Seg Neutrophils % Seg Neuts % (Manual) Lymphocytes % (Manual) Monocytes % (Manual) Seg Neutrophils # Seg Neutrophils # Man Lymphocytes # (Manual) Monocytes # (Manual) Eosinophils # (Manual) APTT POC ABG pH POC ABG pCO2 25.9 L Sodium Potassium Chloride Carbon Dioxide BUN Creatinine Glucose POC Glucose 167 H Uric Acid Calcium Phosphorus Magnesium Total Bilirubin Ammonia Total Protein Albumin Urine WBC (Auto) Crossmatch 03/20/16 03/21/16 03/21/16 Unknown 04:45 04:45 WBC 28.0 H RBC 3.37 L Hgb Hct MCV RDW 16.4 H Plt Count Lymph % (Auto) [place] % (Auto) [place] # Eos # Seg Neutrophils % Seg Neuts % (Manual) Lymphocytes % (Manual) Monocytes % (Manual) Seg Neutrophils # Seg Neutrophils # Man Lymphocytes # (Manual) Monocytes # (Manual) Eosinophils # (Manual) APTT POC ABG pH POC ABG pCO2 Sodium Potassium 5.1 H Chloride 110.4 H Carbon Dioxide 14 L BUN 34 H 37 H Creatinine 2.9 H 3.2 H Glucose 131 H 124 H POC Glucose Uric Acid Calcium 7.5 L 7.1 L Phosphorus 4.6 H Magnesium 1.6 L Total Bilirubin Ammonia Total Protein Albumin Urine WBC (Auto) Crossmatch 03/21/16 03/21/16 03/21/16 05:52 11:23 17:48 WBC RBC Hgb Hct MCV RDW Plt Count Lymph % (Auto) [place] % (Auto) [place] # Eos # Seg Neutrophils % Seg Neuts % (Manual) Lymphocytes % (Manual) Monocytes % (Manual) Seg Neutrophils # Seg Neutrophils # Man Lymphocytes # (Manual) Monocytes # (Manual) Eosinophils # (Manual) APTT POC ABG pH POC ABG pCO2 Sodium Potassium Chloride Carbon Dioxide BUN Creatinine Glucose POC Glucose 136 H 144 H 149 H Uric Acid Calcium Phosphorus Magnesium Total Bilirubin Ammonia Total Protein Albumin Urine WBC (Auto) Crossmatch 03/21/16 03/22/16 03/22/16 22:05 00:44 04:30 WBC 23.2 H RBC 3.38 L Hgb Hct MCV RDW 16.1 H Plt Count Lymph % (Auto) [place] % (Auto) [place] # Eos # Seg Neutrophils % Seg Neuts % (Manual) Lymphocytes % (Manual) Monocytes % (Manual) Seg Neutrophils # Seg Neutrophils # Man Lymphocytes # (Manual) Monocytes # (Manual) Eosinophils # (Manual) APTT POC ABG pH POC ABG pCO2 Sodium Potassium Chloride Carbon Dioxide BUN Creatinine Glucose POC Glucose 129 H 121 H Uric Acid Calcium Phosphorus Magnesium Total Bilirubin Ammonia Total Protein Albumin Urine WBC (Auto) Crossmatch 03/22/16 03/22/16 03/22/16 04:30 06:17 17:47 WBC RBC Hgb Hct MCV RDW Plt Count Lymph % (Auto) [place] % (Auto) [place] # Eos # Seg Neutrophils % Seg Neuts % (Manual) Lymphocytes % (Manual) Monocytes % (Manual) Seg Neutrophils # Seg Neutrophils # Man Lymphocytes # (Manual) Monocytes # (Manual) Eosinophils # (Manual) APTT POC ABG pH POC ABG pCO2 Sodium Potassium 3.0 L D Chloride Carbon Dioxide BUN 27 H Creatinine 1.5 H D Glucose 124 H POC Glucose 120 H Uric Acid Calcium 6.9 L Phosphorus Magnesium Total Bilirubin Ammonia Total Protein Albumin Urine WBC (Auto) 138.0 H Crossmatch 03/23/16 03/23/16 03/23/16 04:00 07:00 12:52 WBC 22.2 H RBC 3.59 L Hgb Hct MCV RDW 15.8 H Plt Count Lymph % (Auto) [place] % (Auto) [place] # Eos # Seg Neutrophils % Seg Neuts % (Manual) Lymphocytes % (Manual) Monocytes % (Manual) Seg Neutrophils # Seg Neutrophils # Man Lymphocytes # (Manual) Monocytes # (Manual) Eosinophils # (Manual) APTT POC ABG pH POC ABG pCO2 Sodium Potassium 3.1 L Chloride Carbon Dioxide BUN Creatinine Glucose 111 H POC Glucose 112 H Uric Acid Calcium 6.6 L Phosphorus Magnesium Total Bilirubin Ammonia Total Protein Albumin Urine WBC (Auto) Crossmatch 03/23/16 03/23/16 03/24/16 17:21 23:53 06:08 WBC RBC Hgb Hct MCV RDW Plt Count Lymph % (Auto) [place] % (Auto) [place] # Eos # Seg Neutrophils % Seg Neuts % (Manual) Lymphocytes % (Manual) Monocytes % (Manual) Seg Neutrophils # Seg Neutrophils # Man Lymphocytes # (Manual) Monocytes # (Manual) Eosinophils # (Manual) APTT POC ABG pH POC ABG pCO2 Sodium Potassium Chloride Carbon Dioxide BUN Creatinine Glucose POC Glucose 120 H 110 H 127 H Uric Acid Calcium Phosphorus Magnesium Total Bilirubin Ammonia Total Protein Albumin Urine WBC (Auto) Crossmatch 03/24/16 03/24/16 03/24/16 06:44 06:44 11:22 WBC 25.1 H RBC 3.22 L Hgb 9.8 L Hct 29.6 L MCV RDW 15.8 H Plt Count Lymph % (Auto) [place] % (Auto) [place] # Eos # Seg Neutrophils % Seg Neuts % (Manual) Lymphocytes % (Manual) Monocytes % (Manual) Seg Neutrophils # Seg Neutrophils # Man Lymphocytes # (Manual) Monocytes # (Manual) Eosinophils # (Manual) APTT POC ABG pH POC ABG pCO2 Sodium Potassium Chloride Carbon Dioxide BUN Creatinine 0.5 L Glucose 123 H POC Glucose 107 H Uric Acid Calcium 6.4 L Phosphorus Magnesium Total Bilirubin Ammonia Total Protein Albumin Urine WBC (Auto) Crossmatch 03/24/16 03/24/16 03/25/16 16:17 23:44 04:50 WBC 25.2 H RBC 3.34 L Hgb 10.0 L Hct MCV RDW 16.1 H Plt Count Lymph % (Auto) [place] % (Auto) [place] # Eos # Seg Neutrophils % Seg Neuts % (Manual) Lymphocytes % (Manual) Monocytes % (Manual) Seg Neutrophils # Seg Neutrophils # Man Lymphocytes # (Manual) Monocytes # (Manual) Eosinophils # (Manual) APTT POC ABG pH POC ABG pCO2 Sodium Potassium Chloride Carbon Dioxide BUN Creatinine Glucose POC Glucose 135 H 156 H Uric Acid Calcium Phosphorus Magnesium Total Bilirubin Ammonia Total Protein Albumin Urine WBC (Auto) Crossmatch 03/25/16 03/25/16 04:50 06:14 WBC RBC Hgb Hct MCV RDW Plt Count Lymph % (Auto) [place] % (Auto) [place] # Eos # Seg Neutrophils % Seg Neuts % (Manual) Lymphocytes % (Manual) Monocytes % (Manual) Seg Neutrophils # Seg Neutrophils # Man Lymphocytes # (Manual) Monocytes # (Manual) Eosinophils # (Manual) APTT POC ABG pH POC ABG pCO2 Sodium Potassium Chloride Carbon Dioxide BUN Creatinine 0.4 L Glucose POC Glucose 106 H Uric Acid Calcium 6.3 L Phosphorus Magnesium Total Bilirubin Ammonia Total Protein Albumin Urine WBC (Auto) Crossmatch
--- NOTE | 2016-03-25 13:50 | XRay Report ---
AP chest History: Persistent leukocytosis, fever. Findings: Small to medium bilateral pleural effusions appear stable since 03/20/16. Mild bibasilar atelectatic changes are noted. The upper lung zones are clear. Heart size and pulmonary vascularity are stable at the upper limits of normal. Right arm PICC terminates in the cavoatrial junction. Impression: Small to medium bilateral pleural effusions and bibasilar atelectasis. No overwhelming change since the exam 5 days ago.
[2016-03-26] MEDS: NOVOLOG SUB-Q SCH ×5 (01:39→22:48)
[2016-03-26] MEDS: HEPARIN SUB-Q SCH ×2 (06:13→13:16)
[2016-03-26 06:27] LABS: Hematocrit 29.7 % (30.3-42.9); Hemoglobin 9.7 gm/dl (10.1-14.3); Mean Corpuscular HGB Conc 33 % (30-34); Mean Corpuscular Hemoglobin 30 pg (28-32); Mean Corpuscular Volume 92 fl (79-97); Platelet Count 371 K/mm3 (140-440); Red Blood Count 3.22 M/mm3 (3.65-5.03); Red Cell Distribution Width 15.9 % (13.2-15.2)
[2016-03-26 06:41] LABS: White Blood Count 21.6 K/mm3 (4.5-11.0)
[2016-03-26 06:44] LABS: Alanine Aminotransferase 10 units/L (7-56); Albumin 1.5 g/dL (3.9-5); Albumin/Globulin Ratio 0.3 %; Alkaline Phosphatase 155 units/L (35-129); Bilirubin,Total 1.3 mg/dL (0.1-1.2); Blood Urea Nitrogen 8 mg/dL (7-17); Calcium 6.5 mg/dL (8.4-10.2); Carbon Dioxide 24 mmol/L (22-30); Chloride 106.6 mmol/L (98-107); Glucose 116 mg/dL (65-100); Potassium 4.2 mmol/L (3.6-5.0); Sodium 142 mmol/L (137-145); Total Protein 6.3 g/dL (6.3-8.2)
[2016-03-26 06:53] LABS: Anion Gap 16 mmol/L
[2016-03-26] MEDS: BROVANA NEBU IH SCH ×2 (07:55→19:47)
[2016-03-26] MEDS: PULMICORT IH SCH ×2 (07:55→19:47)
[2016-03-26 08:51] LABS: Anisocytosis 1+; Basophils % (Manual) 0 % (0.0-1.8); Blastocytes % (Manual) 0 %; Hypochromasia 2+
[2016-03-26 08:52] LABS: Diff Status Complete; Macrocytosis 1+; Target Cells 1+
--- NOTE | 2016-03-26 08:59 | Hem/Onc Consultation ---
History of Present Illness - Reason for Consult Consult date: 03/26/16 - History of Present Illness dictated Past History Past Medical History: hypertension, other (oa, nicotine dependence) Past Surgical History: hysterectomy, Other (rotator cuff surgery) Social history: , smoking. denies: alcohol abuse, prescription drug abuse Family history: hypertension Medications and Allergies Allergies Allergy/AdvReac Type Severity Reaction Status Date / Time No Known Allergies Allergy Verified 03/02/16 21:45 Home Medications Medication Instructions Recorded Confirmed Last Taken Type oxyCODONE /ACETAMINOPHEN [Percocet 1 tab PO Q6HR PRN #20 tablet 03/12/13 Unknown Rx 5/325 mg] Acetaminophen-Codeine #3 TAB 30 mg PO PRN 03/03/16 Unknown History FLUoxetine HCL [FLUoxetine] 20 mg PO DAILY 03/03/16 03/03/16 Unknown History Gabapentin 600 mg PO TID 03/03/16 03/03/16 Unknown History Ibuprofen 800 mg PO PRN 03/03/16 Unknown History Lisinopril/Hydrochlorothiazide 20 mg PO DAILY 03/03/16 03/03/16 Unknown History Naproxen TAB 500 mg PO BID 03/03/16 03/03/16 Unknown History Sulfamethoxazole/Trimethoprim 800 mg PO BID 03/03/16 03/03/16 Unknown History Symbicort 160-4.5 (Nf) 160 INHALATION BID 03/03/16 Unknown History hydrOXYZINE PAMOATE [hydrOXYzine 25 mg PO BID 03/03/16 03/03/16 Unknown History Pamoate] traZODone 100 mg PO QHS 03/03/16 03/03/16 Unknown History Active Meds: Active Medications Acetaminophen (Tylenol) 650 mg PO Q4H PRN PRN Reason: Pain MILD(1-3)/Fever >100.5/GILL Last Admin: 03/24/16 23:02 Dose: 650 mg Albuterol (Proventil) 2.5 mg IH Q6HRT PRN PRN Reason: Shortness Of Breath Last Admin: 03/18/16 11:17 Dose: 2.5 mg Lipase/Protease/Amylase (Pancreaze Dr 10,500 Unit) 1 each FEEDTUBE PRN PRN PRN Reason: For Clogged Feeding Tube Arformoterol Tartrate (Brovana Nebu) 15 mcg IH Q12HRT PATTY Last Admin: 03/26/16 07:55 Dose: 15 mcg Atenolol (Tenormin) 50 mg PO QDAY [facility] Last Admin: 03/25/16 10:59 Dose: 50 mg Budesonide (Pulmicort) 0.5 mg IH Q12HRT [facility] Last Admin: 03/26/16 07:55 Dose: 0.5 mg Clonidine HCl (Catapres) 0.1 mg PO Q4H PRN PRN Reason: For SBP>170 or DBP>110 Dextrose (D50w (25gm)) 50 ml IV PRN PRN PRN Reason: Hypoglycemia Last Admin: 03/19/16 07:20 Dose: 50 ml Folic Acid (Folvite) 1 mg PO QDAY [facility] Last Admin: 03/25/16 10:59 Dose: 1 mg Heparin Sodium (Porcine) (Heparin) 5,000 unit SUB-Q Q8HR [facility] Last Admin: 03/26/16 06:13 Dose: 5,000 unit Hydralazine HCl (Apresoline) 20 mg IV Q6H PRN PRN Reason: Blood Pressure Last Admin: 03/15/16 22:33 Dose: 20 mg Insulin Aspart (Novolog) 0 units SUB-Q Q6HR [facility] PRN Reason: Protocol Last Admin: 03/26/16 06:35 Dose: Not Given Simple Syrup (Simple Syrup) 15 ml FEEDTUBE PRN PRN PRN Reason: Hypoglycemia Simple Syrup (Simple Syrup) 30 ml FEEDTUBE PRN PRN PRN Reason: Hypoglycemia Sodium Bicarbonate (Sodium Bicarbonate) 325 mg FEEDTUBE PRN PRN PRN Reason: For Clogged Feeding Tube Thiamine HCl (Vitamin B-1) 100 mg FEEDTUBE QDAY [facility] Last Admin: 03/25/16 11:00 Dose: 100 mg Exam - Constitutional Vitals: Last Vital Signs Temp 86 F L 03/26/16 00:00 Pulse 94 H 03/26/16 08:03 Resp 18 03/26/16 08:03 BP 155/70 03/26/16 00:00 Pulse Ox 96 03/26/16 07:56 Results - Labs lab Results: Laboratory Results - last 24 hr 03/25/16 03/25/16 03/26/16 12:24 17:01 01:25 WBC RBC Hgb Hct MCV MCH MCHC RDW Plt Count Add Manual Diff Total Counted Seg Neuts % (Manual) Band Neutrophils % Lymphocytes % (Manual) Reactive Lymphs % (Man) Monocytes % (Manual) Eosinophils % (Manual) Basophils % (Manual) Metamyelocytes % Myelocytes % Promyelocytes % Blast Cells % Nucleated RBC % Seg Neutrophils # Man Band Neutrophils # Lymphocytes # (Manual) Abs React Lymphs (Man) Monocytes # (Manual) Eosinophils # (Manual) Basophils # (Manual) Metamyelocytes # Myelocytes # Promyelocytes # Blast Cells # WBC Morphology Hypersegmented Neuts Hyposegmented Neuts Hypogranular Neuts Smudge Cells Toxic Granulation Toxic Vacuolation Dohle Bodies Pelger-Huet Anomaly Betty Rods Platelet Estimate Clumped Platelets Plt Clumps, EDTA Large Platelets Giant Platelets Platelet Satelliting Plt Morphology Comment RBC Morphology Dimorphic RBCs Polychromasia Hypochromasia Poikilocytosis Anisocytosis Microcytosis Macrocytosis Spherocytes Pappenheimer Bodies Sickle Cells Target Cells Tear Drop Cells Ovalocytes Helmet Cells [place] Bodies [place] Rings Golden Cells Bite Cells Crenated Cell Elliptocytes Acanthocytes (Spur) Rouleaux Hemoglobin C Crystals Schistocytes Malaria parasites Matthew Bodies Hem Pathologist Commnt Sodium Potassium Chloride Carbon Dioxide Anion Gap BUN Creatinine Estimated GFR BUN/Creatinine Ratio Glucose POC Glucose 106 H 98 117 H Calcium Total Bilirubin AST ALT Alkaline Phosphatase Total Protein Albumin Albumin/Globulin Ratio 03/26/16 03/26/16 03/26/16 04:00 06:12 06:42 WBC 21.6 H RBC 3.22 L Hgb 9.7 L Hct 29.7 L MCV 92 MCH 30 MCHC 33 RDW 15.9 H Plt Count 371 Add Manual Diff Complete Total Counted 100 Seg Neuts % (Manual) 93.0 H Band Neutrophils % 0 Lymphocytes % (Manual) 2.0 L Reactive Lymphs % (Man) 0 Monocytes % (Manual) 4.0 Eosinophils % (Manual) 1.0 Basophils % (Manual) 0 Metamyelocytes % 0 Myelocytes % 0 Promyelocytes % 0 Blast Cells % 0 Nucleated RBC % Not Reportable Seg Neutrophils # Man 20.1 H Band Neutrophils # 0.0 Lymphocytes # (Manual) 0.4 L Abs React Lymphs (Man) 0.0 Monocytes # (Manual) 0.9 H Eosinophils # (Manual) 0.2 Basophils # (Manual) 0.0 Metamyelocytes # 0.0 Myelocytes # 0.0 Promyelocytes # 0.0 Blast Cells # 0.0 WBC Morphology Not Reportable Hypersegmented Neuts Not Reportable Hyposegmented Neuts Not Reportable Hypogranular Neuts Not Reportable Smudge Cells Not Reportable Toxic Granulation Not Reportable Toxic Vacuolation Not Reportable Dohle Bodies Not Reportable Pelger-Huet Anomaly Not Reportable Betty Rods Not Reportable Platelet Estimate Appears normal Clumped Platelets Not Reportable Plt Clumps, EDTA Not Reportable Large Platelets Not Reportable Giant Platelets Not Reportable Platelet Satelliting Not Reportable Plt Morphology Comment Not Reportable RBC Morphology Not Reportable Dimorphic RBCs Not Reportable Polychromasia Not Reportable Hypochromasia 2+ Poikilocytosis Not Reportable Anisocytosis 1+ Microcytosis Not Reportable Macrocytosis 1+ Spherocytes Not Reportable Pappenheimer Bodies Not Reportable Sickle Cells Not Reportable Target Cells 1+ Tear Drop Cells Not Reportable Ovalocytes Not Reportable Helmet Cells Not Reportable [place] Bodies Not Reportable [place] Rings Not Reportable Tim Cells Not Reportable Bite Cells Not Reportable Crenated Cell Not Reportable Elliptocytes Not Reportable Acanthocytes (Spur) Not Reportable Rouleaux Not Reportable Hemoglobin C Crystals Not Reportable Schistocytes Not Reportable Malaria parasites Not Reportable Matthew Bodies Not Reportable Hem Pathologist Commnt No Sodium 142 Potassium 4.2 Chloride 106.6 Carbon Dioxide 24 Anion Gap 16 BUN 8 Creatinine 0.4 L Estimated GFR > 60 BUN/Creatinine Ratio 20.00 Glucose 116 H POC Glucose 120 H Calcium 6.5 L Total Bilirubin 1.3 H AST 26 ALT 10 Alkaline Phosphatase 155 H Total Protein 6.3 Albumin 1.5 L Albumin/Globulin Ratio 0.3
[2016-03-26] MEDS: VITAMIN B-1 FEEDTUBE SCH (09:06)
[2016-03-26] MEDS: TENORMIN PO SCH (09:06)
[2016-03-26] MEDS: FOLVITE PO SCH (09:06)
--- NOTE | 2016-03-26 10:10 | Progress Note ---
Assessment and Plan - Patient Problems (1) Metabolic encephalopathy Current Visit: Yes Status: Acute Plan to address problem: Patient had acute metabolic encephalopathy. Patient was lethargic. Confused workup so far is negative. MRI shows no acute intracranial abnormality. Patient had lumbar puncture and CSF analysis was negative (2) UTI (urinary tract infection) Current Visit: Yes Status: Acute Plan to address problem: Patient had urine cultures that were positive for Escherichia coli 3 weeks ago. Patient completed IV antibiotics and was evaluated by infectious disease who recommended to monitor off antibiotics. Patient most recent urine culture shows no signs of Escherichia coli (3) Anemia Current Visit: Yes Status: Acute Plan to address problem: Patient has anemia probably secondary to chronic disease. We'll continue to follow hemoglobin and hematocrit. We will also get hematology consult. And possible bone marrow aspirate (4) Hydronephrosis Current Visit: Yes Status: Acute Plan to address problem: Patient had bilateral hydronephrosis on CT of abdomen. Urology was consulted. The case was discussed with Dr. Prabhakar and he recommended repeat CT scan of the abdomen. We'll follow CT scan results (5) Leukocytosis Current Visit: Yes Status: Acute Plan to address problem: White blood cell count is 25.2 at this time. His fluctuating. Patient has no fever. We'll continue to monitor off antibiotics as recommended by infectious disease White blood cell count has decreased from 25.2-21.6 (6) Dysphagia Current Visit: Yes Status: Acute Plan to address problem: Patient had dysphasia possibly secondary to metabolic encephalopathy. PEG tube was placed. Tube feedings have been initiated History Interval history: Patient lying In bed awake alert makes noises at times. Hospitalist Physical - Constitutional Vitals: Temp Pulse Resp BP Pulse Ox 98.1 F 88 18 148/72 100 03/26/16 08:00 03/26/16 09:06 03/26/16 08:03 03/26/16 09:06 03/26/16 08:00 General appearance: Present: no acute distress - EENT Eyes: Present: PERRL, EOM intact - Neck Neck: Present: supple, normal ROM - Respiratory Respiratory effort: normal Respiratory: bilateral: CTA - Cardiovascular Rhythm: regular Heart Sounds: Present: S1 & S2 - Abdominal General gastrointestinal: soft, non-distended, normal bowel sounds Results - Labs CBC & Chem 7: 03/26/16 06:12 03/26/16 04:00 Labs: Laboratory Last Values WBC 21.6 K/mm3 (4.5-11.0) H 03/26/16 06:12 RBC 3.22 M/mm3 (3.65-5.03) L 03/26/16 06:12 Hgb 9.7 gm/dl (10.1-14.3) L 03/26/16 06:12 Hct 29.7 % (30.3-42.9) L 03/26/16 06:12 MCV 92 fl (79-97) 03/26/16 06:12 MCH 30 pg (28-32) 03/26/16 06:12 MCHC 33 % (30-34) 03/26/16 06:12 RDW 15.9 % (13.2-15.2) H 03/26/16 06:12 Plt Count 371 K/mm3 (140-440) 03/26/16 06:12 Lymph % (Auto) 12.8 % (13.4-35.0) L 03/15/16 06:40 [place] % (Auto) 8.2 % (0.0-7.3) H 03/15/16 06:40 Eos % (Auto) 3.0 % (0.0-4.3) 03/15/16 06:40 Baso % (Auto) 0.5 % (0.0-1.8) 03/15/16 06:40 Lymph # 1.7 K/mm3 (1.2-5.4) 03/15/16 06:40 [place] # 1.1 K/mm3 (0.0-0.8) H 03/15/16 06:40 Eos # 0.4 K/mm3 (0.0-0.4) 03/15/16 06:40 Baso # 0.1 K/mm3 (0.0-0.1) 03/15/16 06:40 Add Manual Diff Complete 03/26/16 06:12 Total Counted 100 03/26/16 06:12 Seg Neutrophils % 75.5 % (40.0-70.0) H 03/15/16 06:40 Seg Neuts % (Manual) 93.0 % (40.0-70.0) H 03/26/16 06:12 Band Neutrophils % 0 % 03/26/16 06:12 Lymphocytes % (Manual) 2.0 % (13.4-35.0) L 03/26/16 06:12 Reactive Lymphs % (Man) 0 % 03/26/16 06:12 Monocytes % (Manual) 4.0 % (0.0-7.3) 03/26/16 06:12 Eosinophils % (Manual) 1.0 % (0.0-4.3) 03/26/16 06:12 Basophils % (Manual) 0 % (0.0-1.8) 03/26/16 06:12 Metamyelocytes % 0 % 03/26/16 06:12 Myelocytes % 0 % 03/26/16 06:12 Promyelocytes % 0 % 03/26/16 06:12 Blast Cells % 0 % 03/26/16 06:12 Nucleated RBC % Not Reportable 03/26/16 06:12 Seg Neutrophils # 10.2 K/mm3 (1.8-7.7) H 03/15/16 06:40 Seg Neutrophils # Man 20.1 K/mm3 (1.8-7.7) H 03/26/16 06:12 Band Neutrophils # 0.0 K/mm3 03/26/16 06:12 Lymphocytes # (Manual) 0.4 K/mm3 (1.2-5.4) L 03/26/16 06:12 Abs React Lymphs (Man) 0.0 K/mm3 03/26/16 06:12 Monocytes # (Manual) 0.9 K/mm3 (0.0-0.8) H 03/26/16 06:12 Eosinophils # (Manual) 0.2 K/mm3 (0.0-0.4) 03/26/16 06:12 Basophils # (Manual) 0.0 K/mm3 (0.0-0.1) 03/26/16 06:12 Metamyelocytes # 0.0 K/mm3 03/26/16 06:12 Myelocytes # 0.0 K/mm3 03/26/16 06:12 Promyelocytes # 0.0 K/mm3 03/26/16 06:12 Blast Cells # 0.0 K/mm3 03/26/16 06:12 WBC Morphology Not Reportable 03/26/16 06:12 Hypersegmented Neuts Not Reportable 03/26/16 06:12 Hyposegmented Neuts Not Reportable 03/26/16 06:12 Hypogranular Neuts Not Reportable 03/26/16 06:12 Smudge Cells Not Reportable 03/26/16 06:12 Toxic Granulation Not Reportable 03/26/16 06:12 Toxic Vacuolation Not Reportable 03/26/16 06:12 Dohle Bodies Not Reportable 03/26/16 06:12 Pelger-Huet Anomaly Not Reportable 03/26/16 06:12 Betty Rods Not Reportable 03/26/16 06:12 Platelet Estimate Appears normal 03/26/16 06:12 Clumped Platelets Not Reportable 03/26/16 06:12 Plt Clumps, EDTA Not Reportable 03/26/16 06:12 Large Platelets Not Reportable 03/26/16 06:12 Giant Platelets Not Reportable 03/26/16 06:12 Platelet Satelliting Not Reportable 03/26/16 06:12 Plt Morphology Comment Not Reportable 03/26/16 06:12 RBC Morphology Not Reportable 03/26/16 06:12 Dimorphic RBCs Not Reportable 03/26/16 06:12 Polychromasia Not Reportable 03/26/16 06:12 Hypochromasia 2+ 03/26/16 06:12 Poikilocytosis Not Reportable 03/26/16 06:12 Anisocytosis 1+ 03/26/16 06:12 Microcytosis Not Reportable 03/26/16 06:12 Macrocytosis 1+ 03/26/16 06:12 Spherocytes Not Reportable 03/26/16 06:12 Pappenheimer Bodies Not Reportable 03/26/16 06:12 Sickle Cells Not Reportable 03/26/16 06:12 Target Cells 1+ 03/26/16 06:12 Tear Drop Cells Not Reportable 03/26/16 06:12 Ovalocytes Not Reportable 03/26/16 06:12 Helmet Cells Not Reportable 03/26/16 06:12 [place] Bodies Not Reportable 03/26/16 06:12 [place] Rings Not Reportable 03/26/16 06:12 [place] Cells Not Reportable 03/26/16 06:12 Bite Cells Not Reportable 03/26/16 06:12 Crenated Cell Not Reportable 03/26/16 06:12 Elliptocytes Not Reportable 03/26/16 06:12 Acanthocytes (Spur) Not Reportable 03/26/16 06:12 Rouleaux Not Reportable 03/26/16 06:12 Hemoglobin C Crystals Not Reportable 03/26/16 06:12 Schistocytes Not Reportable 03/26/16 06:12 Malaria parasites Not Reportable 03/26/16 06:12 Matthew Bodies Not Reportable 03/26/16 06:12 Hem Pathologist Commnt No 03/26/16 06:12 PT 13.0 Sec. (12.2-14.9) 03/12/16 09:50 INR 0.99 (0.87-1.13) 03/12/16 09:50 APTT 38.8 Sec. (24.2-36.6) H 03/12/16 09:50 POC ABG pH 7.365 (7.35-7.45) 03/20/16 21:00 POC ABG pCO2 25.9 (35-45) L 03/20/16 21:00 POC ABG pO2 90 (80-105) 03/20/16 21:00 POC ABG HCO3 14.8 03/20/16 21:00 POC ABG Total CO2 16 03/20/16 21:00 POC ABG O2 Sat 97 03/20/16 21:00 POC ABG Base Excess -11 03/20/16 21:00 FiO2 31 % 03/20/16 21:00 Sodium 142 mmol/L (137-145) 03/26/16 04:00 Potassium 4.2 mmol/L (3.6-5.0) 03/26/16 04:00 Chloride 106.6 mmol/L (98-107) 03/26/16 04:00 Carbon Dioxide 24 mmol/L (22-30) 03/26/16 04:00 Anion Gap 16 mmol/L 03/26/16 04:00 BUN 8 mg/dL (7-17) 03/26/16 04:00 Creatinine 0.4 mg/dL (0.7-1.2) L 03/26/16 04:00 Estimated GFR > 60 ml/min 03/26/16 04:00 BUN/Creatinine Ratio 20.00 % 03/26/16 04:00 Glucose 116 mg/dL (65-100) H 03/26/16 04:00 POC Glucose 120 (70-105) H 03/26/16 06:42 Osmolality 301 Mosm/kg 03/17/16 23:50 Lactic Acid 1.7 mmol/L (0.7-2.0) 03/03/16 02:43 Uric Acid 8.4 mg/dL (3.5-7.6) H 03/17/16 23:50 Calcium 6.5 mg/dL (8.4-10.2) L 03/26/16 04:00 Ionized Calcium 4.9 mg/dL (4.8-5.6) 03/17/16 20:53 Phosphorus 4.6 mg/dL (2.5-4.5) H 03/21/16 04:45 Magnesium 1.6 mg/dL (1.7-2.3) L 03/21/16 04:45 Total Bilirubin 1.3 mg/dL (0.1-1.2) H 03/26/16 04:00 AST 26 units/L (5-40) 03/26/16 04:00 ALT 10 units/L (7-56) 03/26/16 04:00 Alkaline Phosphatase 155 units/L (35-129) H 03/26/16 04:00 Ammonia 58.0 umol/L (25-60) 03/22/16 19:50 Total Creatine Kinase 42 units/L (30-135) 03/02/16 18:35 CK-MB (CK-2) < 1.0 ng/mL (0.0-4.0) 03/02/16 18:35 CK-MB (CK-2) Rel Index 2.3 (0-4) 03/02/16 18:35 Troponin T < 0.010 ng/mL (0.00-0.029) 03/02/16 18:35 Total Protein 6.3 g/dL (6.3-8.2) 03/26/16 04:00 Albumin 1.5 g/dL (3.9-5) L 03/26/16 04:00 Albumin/Globulin Ratio 0.3 % 03/26/16 04:00 TSH 0.427 mlU/mL (0.270-4.200) 03/04/16 19:38 Free T4 1.36 ng/dL (0.76-1.46) 03/02/16 18:35 Urine Color Yellow (Yellow) 03/22/16 17:47 Urine Turbidity Cloudy (Clear) 03/22/16 17:47 Urine pH 6.0 (5.0-7.0) 03/22/16 17:47 Ur Specific [place] 1.012 (1.003-1.030) 03/22/16 17:47 Urine Protein <15 mg/dl mg/dL (Negative) 03/22/16 17:47 Urine Glucose (UA) Neg mg/dL (Negative) 03/22/16 17:47 Urine Ketones Neg mg/dL (Negative) 03/22/16 17:47 Urine Blood Lg (Negative) 03/22/16 17:47 Urine Nitrite Neg (Negative) 03/22/16 17:47 Urine Bilirubin Neg (Negative) 03/22/16 17:47 Urine Ictotest Positive (Negative) 03/02/16 20:44 Urine Urobilinogen < 2.0 mg/dL (<2.0) 03/22/16 17:47 Ur Leukocyte Esterase Lg (Negative) 03/22/16 17:47 Urine WBC (Auto) 138.0 /HPF (0.0-6.0) H 03/22/16 17:47 Urine RBC (Auto) > 182.0 /HPF (0.0-6.0) 03/22/16 17:47 U Epithel Cells (Auto) 1.0 /HPF (0-13.0) 03/22/16 17:47 Urine Bacteria (Auto) 3+ /HPF (Negative) 03/22/16 17:47 Urine WBC Clumps 3+ /HPF 03/22/16 17:47 Urine Mucus Few /HPF 03/22/16 17:47 CSF Appearance Clear 03/12/16 Unknown CSF Color Colorless 03/12/16 Unknown CSF WBC 0 /mm3 (1-10) 03/12/16 Unknown CSF RBC 102 /mm3 (0-0) 03/12/16 Unknown CSF Seg Neutrophils 0 % (0-6) 03/12/16 Unknown CSF Lymphocytes % 0 % (40-80) 03/12/16 Unknown CSF Reactive Lymphs 0 % 03/12/16 Unknown CSF Monocytes % 0 % (15-45) 03/12/16 Unknown CSF Eosinophils % 0 % 03/12/16 Unknown CSF Basophils 0 % 03/12/16 Unknown CSF Comment No cells seen 03/12/16 Unknown CSF Pathologist Review C 03/12/16 Unknown CSF Glucose 59 mg/dL 03/12/16 Unknown CSF Total Protein 48 mg/dL 03/12/16 Unknown Immunofix Electrophor see below (()) 03/17/16 23:50 JAROD Screen Negative (Negative) 03/17/16 23:50 Blood Type B POSITIVE 03/19/16 09:30 Antibody Screen Negative 03/19/16 09:30 Crossmatch See Detail 03/19/16 09:30
--- NOTE | 2016-03-26 10:39 | Consultation ---
REFERRING PHYSICIAN: Dr. Bayron Gr. REASON FOR CONSULTATION: Leukocytosis. HISTORY OF PRESENT ILLNESS: The patient is a 60-year-old female who was admitted to the hospital earlier in the year with evidence of altered mental status. She has history of hypertension, COPD, history of alcohol abuse. During her hospital course, she has evidence of leukocytosis, white count 16. She did have a urine culture, which was Escherichia coli, treated appropriately. The patient has continued to show a high white count, in spite of treating with antibiotics, which now have been stopped. Hematology consult was called for leukocytosis. The patient has had evidence of metabolic encephalopathy with lumbar puncture, MRI, all showing negative results. She has also had evidence of hydronephrosis, which is being followed by Dr. Coburn. Her white count has been fluctuating between about 20,000-25,000. PAST MEDICAL HISTORY: Positive for hypertension, alcohol abuse. SOCIAL HISTORY: Positive for alcohol abuse. PHYSICAL EXAMINATION: GENERAL: The patient is not oriented. She is moaning. Apparently, there is slow improvement in her mental status according to the family. HEENT: Unremarkable. CHEST: Clear anteriorly. CARDIOVASCULAR: Regular rate and rhythm. ABDOMEN: Slightly distended. There is a G-tube present. EXTREMITIES: Has no clubbing, cyanosis, or edema. LABORATORY WORK: Today's lab work shows a white count of 21.6, hemoglobin 9.7, platelets 371,000. Her chemistries today show a creatinine of 0.4, calcium 6.5, total bilirubin 1.3, alkaline phosphatase 155. ASSESSMENT: Leukocytosis with no obvious active infection, could be still reactive, rule out primary bone marrow pathology. RECOMMENDATION AND PLAN: At this time, we will check flow cytometry. We will also check analysis and BCR-ABL. We will monitor counts. I do not see her being a good candidate for bone marrow biopsy because of her poor performance status at this time. May have to closely monitor for now. We will follow. JOB# [id number] MARIA/CRISTIAN
--- NOTE | 2016-03-26 21:21 | Progress Note ---
Assessment and Plan AMS. More alert . Behavior suggestive of non organic problem? Leukocytosis. No fever Comments from ID noted. Patient be monitored off antibiotics. Acute renal failure electrolyte imbalance . Improved acute respiratory failure . Resolved bilateral pleural effusions. CXR with no real changes. left and right sided hydronephrosis Recommendations Respiratory monitoring Diuresis, Albumin replacement as needed Neuro update ? Subjective Date of service: 03/26/16 Principal diagnosis: AMS/dysphagia/malnutrition Interval history: Feeling fine,answering questions. States no SOB or cough. Talking, voicing continuously aloud Objective Vital Signs - 12hr 03/26/16 03/26/16 03/26/16 17:00 19:47 19:57 Temperature 99 F Pulse Rate [ 88 93 H Anterior Bilateral Throughout] Pulse Rate [ 85 Right Dorsalis Pedis] Pulse Rate [ Right Radial] Respiratory 20 Rate Respiratory 18 18 Rate [Anterior Bilateral Throughout] Blood Pressure 123/72 [Right Radial Artery] O2 Sat by Pulse 100 98 Oximetry 03/26/16 20:00 Temperature 99.2 F Pulse Rate [ Anterior Bilateral Throughout] Pulse Rate [ Right Dorsalis Pedis] Pulse Rate [ 92 H Right Radial] Respiratory 20 Rate Respiratory Rate [Anterior Bilateral Throughout] Blood Pressure 122/71 [Right Radial Artery] O2 Sat by Pulse 100 Oximetry Constitutional: alert, other (confused) Eyes: non-icteric ENT: oropharynx dry Neck: supple Effort: mildly labored Ascultation: Bilateral: clear, diminished breath sounds (bases) Percussion: Bilateral: not dull Cardiovascular: regular rate and rhythm Gastrointestinal: normoactive bowel sounds, soft, non-tender Extremities: cool Neurologic: pupils equal and round, unable to assess CBC and BMP: 03/26/16 06:12 03/26/16 04:00 ABG, PT/INR, D-dimer: ABG POC ABG pH 7.365 (7.35-7.45) 03/20/16 21:00 POC ABG pCO2 25.9 (35-45) L 03/20/16 21:00 POC ABG pO2 90 (80-105) 03/20/16 21:00 POC ABG HCO3 14.8 03/20/16 21:00 POC ABG Total CO2 16 03/20/16 21:00 POC ABG O2 Sat 97 03/20/16 21:00 PT/INR, D-dimer PT 13.0 Sec. (12.2-14.9) 03/12/16 09:50 INR 0.99 (0.87-1.13) 03/12/16 09:50 Abnormal lab findings: Abnormal Labs 03/03/16 03/03/16 03/04/16 15:47 15:47 05:14 WBC 19.2 H 23.1 H RBC 3.64 L Hgb Hct MCV RDW 16.5 H 16.6 H Plt Count 449 H Lymph % (Auto) Cedar % (Auto) Cedar # Eos # Seg Neutrophils % Seg Neuts % (Manual) Lymphocytes % (Manual) Monocytes % (Manual) Seg Neutrophils # Seg Neutrophils # Man Lymphocytes # (Manual) Monocytes # (Manual) Eosinophils # (Manual) APTT POC ABG pH POC ABG pCO2 Sodium Potassium 2.8 L* Chloride 96.5 L Carbon Dioxide 20 L BUN Creatinine 0.6 L Glucose 139 H POC Glucose Uric Acid Calcium Phosphorus Magnesium Total Bilirubin Alkaline Phosphatase Ammonia Total Protein Albumin Urine WBC (Auto) Crossmatch 03/04/16 03/04/16 03/04/16 05:14 09:01 19:38 WBC RBC Hgb Hct MCV RDW Plt Count Lymph % (Auto) Cedar % (Auto) Cedar # Eos # Seg Neutrophils % Seg Neuts % (Manual) Lymphocytes % (Manual) Monocytes % (Manual) Seg Neutrophils # Seg Neutrophils # Man Lymphocytes # (Manual) Monocytes # (Manual) Eosinophils # (Manual) APTT POC ABG pH POC ABG pCO2 Sodium 135 L Potassium 3.3 L Chloride 95.7 L Carbon Dioxide 19 L BUN Creatinine Glucose 130 H POC Glucose Uric Acid Calcium 8.0 L Phosphorus 1.4 L Magnesium 1.0 L Total Bilirubin 1.9 H Alkaline Phosphatase Ammonia 95.0 H Total Protein Albumin 3.0 L Urine WBC (Auto) Crossmatch 03/05/16 03/05/16 03/05/16 07:39 07:39 17:59 WBC 20.3 H RBC 3.50 L Hgb Hct MCV 98 H RDW 16.1 H Plt Count Lymph % (Auto) Cedar % (Auto) Cedar # Eos # Seg Neutrophils % Seg Neuts % (Manual) Lymphocytes % (Manual) Monocytes % (Manual) Seg Neutrophils # Seg Neutrophils # Man Lymphocytes # (Manual) Monocytes # (Manual) Eosinophils # (Manual) APTT POC ABG pH POC ABG pCO2 Sodium Potassium 2.7 L* 3.2 L Chloride Carbon Dioxide 19 L 18 L BUN Creatinine 1.4 H D 1.4 H Glucose 131 H POC Glucose Uric Acid Calcium 7.6 L 7.3 L Phosphorus 6.7 H D Magnesium 2.6 H Total Bilirubin 1.4 H Alkaline Phosphatase Ammonia Total Protein 5.9 L Albumin 2.4 L Urine WBC (Auto) Crossmatch 03/06/16 03/06/16 03/06/16 09:54 09:54 18:07 WBC 22.2 H RBC 3.19 L Hgb 9.9 L Hct MCV 98 H RDW 16.8 H Plt Count Lymph % (Auto) Cedar % (Auto) Cedar # Eos # Seg Neutrophils % Seg Neuts % (Manual) Lymphocytes % (Manual) Monocytes % (Manual) Seg Neutrophils # Seg Neutrophils # Man Lymphocytes # (Manual) Monocytes # (Manual) Eosinophils # (Manual) APTT POC ABG pH POC ABG pCO2 Sodium 150 H D Potassium 2.8 L* 2.8 L* Chloride 113.5 H Carbon Dioxide 16 L 16 L BUN Creatinine Glucose 137 H 106 H POC Glucose Uric Acid Calcium 7.4 L 7.7 L Phosphorus Magnesium Total Bilirubin Alkaline Phosphatase Ammonia Total Protein Albumin Urine WBC (Auto) Crossmatch 03/07/16 03/07/16 03/07/16 04:53 04:53 05:43 WBC 19.7 H RBC 3.20 L Hgb 9.9 L Hct MCV RDW 16.6 H Plt Count Lymph % (Auto) Cedar % (Auto) Cedar # Eos # Seg Neutrophils % Seg Neuts % (Manual) Lymphocytes % (Manual) Monocytes % (Manual) Seg Neutrophils # Seg Neutrophils # Man Lymphocytes # (Manual) Monocytes # (Manual) Eosinophils # (Manual) APTT POC ABG pH POC ABG pCO2 Sodium Potassium 2.9 L* Chloride 114.1 H Carbon Dioxide 19 L BUN Creatinine Glucose 140 H POC Glucose 143 H Uric Acid Calcium 7.8 L Phosphorus Magnesium Total Bilirubin Alkaline Phosphatase Ammonia Total Protein Albumin Urine WBC (Auto) Crossmatch 03/07/16 03/08/16 03/08/16 22:20 05:09 05:09 WBC 32.2 H RBC 3.18 L Hgb 10.0 L Hct MCV RDW 16.8 H Plt Count Lymph % (Auto) Cedar % (Auto) Cedar # Eos # Seg Neutrophils % Seg Neuts % (Manual) Lymphocytes % (Manual) Monocytes % (Manual) Seg Neutrophils # Seg Neutrophils # Man Lymphocytes # (Manual) Monocytes # (Manual) Eosinophils # (Manual) APTT POC ABG pH POC ABG pCO2 Sodium 155 H D Potassium 6.3 H* D 6.1 H* Chloride Carbon Dioxide 18 L BUN Creatinine 1.6 H D Glucose 213 H POC Glucose Uric Acid Calcium Phosphorus Magnesium Total Bilirubin Alkaline Phosphatase Ammonia Total Protein Albumin Urine WBC (Auto) Crossmatch 03/08/16 03/08/16 03/08/16 09:11 16:28 17:27 WBC RBC Hgb Hct MCV RDW Plt Count Lymph % (Auto) Cedar % (Auto) Cedar # Eos # Seg Neutrophils % Seg Neuts % (Manual) Lymphocytes % (Manual) Monocytes % (Manual) Seg Neutrophils # Seg Neutrophils # Man Lymphocytes # (Manual) Monocytes # (Manual) Eosinophils # (Manual) APTT POC ABG pH POC ABG pCO2 Sodium 156 H Potassium Chloride 126.2 H Carbon Dioxide 19 L BUN Creatinine 1.8 H Glucose 175 H POC Glucose 204 H 130 H Uric Acid Calcium Phosphorus Magnesium Total Bilirubin Alkaline Phosphatase Ammonia Total Protein Albumin Urine WBC (Auto) Crossmatch 03/08/16 03/09/16 03/09/16 22:06 05:47 08:00 WBC 29.9 H RBC 2.93 L Hgb 9.0 L Hct 28.4 L MCV RDW 17.4 H Plt Count Lymph % (Auto) C[place] % (Auto) C[place] # Eos # Seg Neutrophils % Seg Neuts % (Manual) Lymphocytes % (Manual) Monocytes % (Manual) Seg Neutrophils # Seg Neutrophils # Man Lymphocytes # (Manual) Monocytes # (Manual) Eosinophils # (Manual) APTT POC ABG pH POC ABG pCO2 Sodium Potassium Chloride Carbon Dioxide BUN Creatinine Glucose POC Glucose 192 H 206 H Uric Acid Calcium Phosphorus Magnesium Total Bilirubin Alkaline Phosphatase Ammonia Total Protein Albumin Urine WBC (Auto) Crossmatch 03/09/16 03/09/16 03/09/16 08:00 11:33 16:03 WBC RBC Hgb Hct MCV RDW Plt Count Lymph % (Auto) C[place] % (Auto) C[place] # Eos # Seg Neutrophils % Seg Neuts % (Manual) Lymphocytes % (Manual) Monocytes % (Manual) Seg Neutrophils # Seg Neutrophils # Man Lymphocytes # (Manual) Monocytes # (Manual) Eosinophils # (Manual) APTT POC ABG pH POC ABG pCO2 Sodium 154 H Potassium Chloride 123.0 H Carbon Dioxide 21 L BUN 18 H Creatinine 1.9 H Glucose 179 H POC Glucose 152 H 130 H Uric Acid Calcium 8.2 L Phosphorus Magnesium Total Bilirubin Alkaline Phosphatase Ammonia Total Protein Albumin Urine WBC (Auto) Crossmatch 03/10/16 03/10/16 03/10/16 06:16 11:53 17:22 WBC RBC Hgb Hct MCV RDW Plt Count Lymph % (Auto) C[place] % (Auto) C[place] # Eos # Seg Neutrophils % Seg Neuts % (Manual) Lymphocytes % (Manual) Monocytes % (Manual) Seg Neutrophils # Seg Neutrophils # Man Lymphocytes # (Manual) Monocytes # (Manual) Eosinophils # (Manual) APTT POC ABG pH POC ABG pCO2 Sodium Potassium Chloride Carbon Dioxide BUN Creatinine Glucose POC Glucose 170 H 141 H 159 H Uric Acid Calcium Phosphorus Magnesium Total Bilirubin Alkaline Phosphatase Ammonia Total Protein Albumin Urine WBC (Auto) Crossmatch 03/10/16 03/10/16 03/10/16 Unknown Unknown Unknown WBC 22.8 H RBC 2.70 L Hgb 8.7 L Hct 26.4 L MCV 98 H RDW 17.1 H Plt Count Lymph % (Auto) Cedar % (Auto) Cedar # Eos # Seg Neutrophils % Seg Neuts % (Manual) 78.0 H Lymphocytes % (Manual) 12.0 L Monocytes % (Manual) Seg Neutrophils # Seg Neutrophils # Man 17.8 H Lymphocytes # (Manual) Monocytes # (Manual) 1.1 H Eosinophils # (Manual) 0.9 H APTT POC ABG pH POC ABG pCO2 Sodium 147 H Potassium Chloride 115.0 H Carbon Dioxide 20 L BUN 22 H Creatinine 1.6 H Glucose 142 H POC Glucose Uric Acid Calcium 7.7 L Phosphorus Magnesium 1.5 L Total Bilirubin Alkaline Phosphatase Ammonia Total Protein Albumin Urine WBC (Auto) Crossmatch 03/11/16 03/11/16 03/11/16 00:11 00:50 06:15 WBC 24.3 H RBC 2.93 L Hgb 9.0 L Hct 28.1 L MCV RDW 17.4 H Plt Count Lymph % (Auto) Cedar % (Auto) Cedar # Eos # Seg Neutrophils % Seg Neuts % (Manual) 74.0 H Lymphocytes % (Manual) 10.0 L Monocytes % (Manual) 8.0 H Seg Neutrophils # Seg Neutrophils # Man 18.0 H Lymphocytes # (Manual) Monocytes # (Manual) 1.9 H Eosinophils # (Manual) 1.0 H APTT POC ABG pH POC ABG pCO2 Sodium Potassium Chloride Carbon Dioxide BUN Creatinine Glucose POC Glucose 143 H 136 H Uric Acid Calcium Phosphorus Magnesium Total Bilirubin Alkaline Phosphatase Ammonia Total Protein Albumin Urine WBC (Auto) Crossmatch 03/11/16 03/12/16 03/12/16 07:24 09:50 12:10 WBC RBC Hgb Hct MCV RDW Plt Count Lymph % (Auto) Cedar % (Auto) C[place] # Eos # Seg Neutrophils % Seg Neuts % (Manual) Lymphocytes % (Manual) Monocytes % (Manual) Seg Neutrophils # Seg Neutrophils # Man Lymphocytes # (Manual) Monocytes # (Manual) Eosinophils # (Manual) APTT 38.8 H POC ABG pH POC ABG pCO2 Sodium 135 L D Potassium Chloride Carbon Dioxide BUN 27 H Creatinine 1.8 H Glucose 136 H POC Glucose 111 H Uric Acid Calcium 7.5 L Phosphorus Magnesium 1.4 L Total Bilirubin Alkaline Phosphatase Ammonia Total Protein Albumin Urine WBC (Auto) Crossmatch 03/12/16 03/12/16 03/13/16 16:39 21:45 05:00 WBC 19.2 H RBC 2.68 L Hgb 8.5 L Hct 25.7 L MCV RDW 17.4 H Plt Count Lymph % (Auto) 9.3 L Cedar % (Auto) 8.7 H Cedar # 1.7 H Eos # 0.5 H Seg Neutrophils % 78.6 H Seg Neuts % (Manual) Lymphocytes % (Manual) Monocytes % (Manual) Seg Neutrophils # 15.1 H Seg Neutrophils # Man Lymphocytes # (Manual) Monocytes # (Manual) Eosinophils # (Manual) APTT POC ABG pH POC ABG pCO2 Sodium Potassium Chloride Carbon Dioxide BUN Creatinine Glucose POC Glucose 112 H 124 H Uric Acid Calcium Phosphorus Magnesium Total Bilirubin Alkaline Phosphatase Ammonia Total Protein Albumin Urine WBC (Auto) Crossmatch 03/13/16 03/13/16 03/14/16 05:00 16:19 06:21 WBC RBC Hgb Hct MCV RDW Plt Count Lymph % (Auto) Cedar % (Auto) C[place] # Eos # Seg Neutrophils % Seg Neuts % (Manual) Lymphocytes % (Manual) Monocytes % (Manual) Seg Neutrophils # Seg Neutrophils # Man Lymphocytes # (Manual) Monocytes # (Manual) Eosinophils # (Manual) APTT POC ABG pH POC ABG pCO2 Sodium Potassium Chloride Carbon Dioxide 20 L BUN 31 H Creatinine 2.1 H Glucose POC Glucose 61 L 125 H Uric Acid Calcium 7.8 L Phosphorus Magnesium 3.1 H Total Bilirubin Alkaline Phosphatase Ammonia Total Protein Albumin Urine WBC (Auto) Crossmatch 03/14/16 03/14/16 03/15/16 13:48 18:34 00:02 WBC RBC Hgb Hct MCV RDW Plt Count Lymph % (Auto) C[place] % (Auto) [place] # Eos # Seg Neutrophils % Seg Neuts % (Manual) Lymphocytes % (Manual) Monocytes % (Manual) Seg Neutrophils # Seg Neutrophils # Man Lymphocytes # (Manual) Monocytes # (Manual) Eosinophils # (Manual) APTT POC ABG pH POC ABG pCO2 Sodium Potassium Chloride Carbon Dioxide BUN Creatinine Glucose POC Glucose 107 H 124 H 138 H Uric Acid Calcium Phosphorus Magnesium Total Bilirubin Alkaline Phosphatase Ammonia Total Protein Albumin Urine WBC (Auto) Crossmatch 03/15/16 03/15/16 03/15/16 06:40 06:40 07:23 WBC 13.5 H RBC 2.32 L Hgb 7.5 L Hct 22.3 L MCV RDW 17.5 H Plt Count Lymph % (Auto) 12.8 L Cedar % (Auto) 8.2 H Cedar # 1.1 H Eos # Seg Neutrophils % 75.5 H Seg Neuts % (Manual) Lymphocytes % (Manual) Monocytes % (Manual) Seg Neutrophils # 10.2 H Seg Neutrophils # Man Lymphocytes # (Manual) Monocytes # (Manual) Eosinophils # (Manual) APTT POC ABG pH POC ABG pCO2 Sodium Potassium Chloride 110.8 H Carbon Dioxide 16 L BUN 28 H Creatinine 2.4 H Glucose POC Glucose 112 H Uric Acid Calcium 7.0 L Phosphorus Magnesium Total Bilirubin Alkaline Phosphatase Ammonia Total Protein Albumin Urine WBC (Auto) Crossmatch 03/15/16 03/15/16 03/15/16 11:46 16:32 20:52 WBC RBC Hgb Hct MCV RDW Plt Count Lymph % (Auto) C[place] % (Auto) C[place] # Eos # Seg Neutrophils % Seg Neuts % (Manual) Lymphocytes % (Manual) Monocytes % (Manual) Seg Neutrophils # Seg Neutrophils # Man Lymphocytes # (Manual) Monocytes # (Manual) Eosinophils # (Manual) APTT POC ABG pH POC ABG pCO2 Sodium Potassium Chloride Carbon Dioxide BUN Creatinine Glucose POC Glucose 138 H 127 H 118 H Uric Acid Calcium Phosphorus Magnesium Total Bilirubin Alkaline Phosphatase Ammonia Total Protein Albumin Urine WBC (Auto) Crossmatch 03/16/16 03/16/16 03/16/16 06:01 06:01 06:24 WBC 27.8 H RBC 2.41 L Hgb 7.4 L Hct 23.2 L MCV RDW 18.2 H Plt Count Lymph % (Auto) C[place] % (Auto) C[place] # Eos # Seg Neutrophils % Seg Neuts % (Manual) 91.5 H Lymphocytes % (Manual) 2.5 L Monocytes % (Manual) Seg Neutrophils # Seg Neutrophils # Man 25.4 H Lymphocytes # (Manual) 0.7 L Monocytes # (Manual) Eosinophils # (Manual) APTT POC ABG pH POC ABG pCO2 Sodium Potassium Chloride 113.0 H Carbon Dioxide 15 L BUN 30 H Creatinine 2.6 H Glucose 130 H POC Glucose 159 H Uric Acid Calcium 6.8 L Phosphorus Magnesium Total Bilirubin Alkaline Phosphatase Ammonia Total Protein Albumin Urine WBC (Auto) Crossmatch 03/16/16 03/16/16 03/16/16 11:34 16:37 23:46 WBC RBC Hgb Hct MCV RDW Plt Count Lymph % (Auto) C[place] % (Auto) C[place] # Eos # Seg Neutrophils % Seg Neuts % (Manual) Lymphocytes % (Manual) Monocytes % (Manual) Seg Neutrophils # Seg Neutrophils # Man Lymphocytes # (Manual) Monocytes # (Manual) Eosinophils # (Manual) APTT POC ABG pH POC ABG pCO2 Sodium Potassium Chloride Carbon Dioxide BUN Creatinine Glucose POC Glucose 164 H 109 H 114 H Uric Acid Calcium Phosphorus Magnesium Total Bilirubin Alkaline Phosphatase Ammonia Total Protein Albumin Urine WBC (Auto) Crossmatch 03/17/16 03/17/16 03/17/16 11:33 22:11 23:50 WBC RBC Hgb Hct MCV RDW Plt Count Lymph % (Auto) C[place] % (Auto) C[place] # Eos # Seg Neutrophils % Seg Neuts % (Manual) Lymphocytes % (Manual) Monocytes % (Manual) Seg Neutrophils # Seg Neutrophils # Man Lymphocytes # (Manual) Monocytes # (Manual) Eosinophils # (Manual) APTT POC ABG pH 7.319 L POC ABG pCO2 28.6 L Sodium Potassium Chloride 111.6 H Carbon Dioxide 16 L BUN 34 H Creatinine 2.7 H Glucose 115 H POC Glucose 117 H Uric Acid 8.4 H Calcium 7.4 L Phosphorus Magnesium Total Bilirubin Alkaline Phosphatase Ammonia Total Protein Albumin Urine WBC (Auto) Crossmatch 03/17/16 03/18/16 03/19/16 23:50 11:11 05:20 WBC 18.2 H RBC 2.11 L Hgb 6.7 L Hct 20.1 L MCV RDW 17.5 H Plt Count Lymph % (Auto) C[place] % (Auto) [place] # Eos # Seg Neutrophils % Seg Neuts % (Manual) Lymphocytes % (Manual) Monocytes % (Manual) Seg Neutrophils # Seg Neutrophils # Man Lymphocytes # (Manual) Monocytes # (Manual) Eosinophils # (Manual) APTT POC ABG pH 7.320 L POC ABG pCO2 29.9 L Sodium Potassium Chloride Carbon Dioxide BUN Creatinine Glucose POC Glucose 124 H Uric Acid Calcium Phosphorus Magnesium Total Bilirubin Alkaline Phosphatase Ammonia Total Protein Albumin Urine WBC (Auto) Crossmatch 03/19/16 03/19/16 03/19/16 05:20 06:11 09:30 WBC RBC Hgb Hct MCV RDW Plt Count Lymph % (Auto) C[place] % (Auto) C[place] # Eos # Seg Neutrophils % Seg Neuts % (Manual) Lymphocytes % (Manual) Monocytes % (Manual) Seg Neutrophils # Seg Neutrophils # Man Lymphocytes # (Manual) Monocytes # (Manual) Eosinophils # (Manual) APTT POC ABG pH POC ABG pCO2 Sodium Potassium Chloride 114.1 H Carbon Dioxide 16 L BUN 32 H Creatinine 2.2 H Glucose POC Glucose 63 L Uric Acid Calcium 7.7 L Phosphorus Magnesium Total Bilirubin Alkaline Phosphatase Ammonia Total Protein Albumin Urine WBC (Auto) Crossmatch See Detail 03/19/16 03/19/16 03/19/16 12:14 16:30 23:57 WBC RBC Hgb Hct MCV RDW Plt Count Lymph % (Auto) C[place] % (Auto) [place] # Eos # Seg Neutrophils % Seg Neuts % (Manual) Lymphocytes % (Manual) Monocytes % (Manual) Seg Neutrophils # Seg Neutrophils # Man Lymphocytes # (Manual) Monocytes # (Manual) Eosinophils # (Manual) APTT POC ABG pH POC ABG pCO2 Sodium Potassium Chloride Carbon Dioxide BUN Creatinine Glucose POC Glucose 138 H 133 H 190 H Uric Acid Calcium Phosphorus Magnesium Total Bilirubin Alkaline Phosphatase Ammonia Total Protein Albumin Urine WBC (Auto) Crossmatch 03/20/16 03/20/16 03/20/16 06:38 11:52 15:36 WBC RBC Hgb Hct MCV RDW Plt Count Lymph % (Auto) C[place] % (Auto) [place] # Eos # Seg Neutrophils % Seg Neuts % (Manual) Lymphocytes % (Manual) Monocytes % (Manual) Seg Neutrophils # Seg Neutrophils # Man Lymphocytes # (Manual) Monocytes # (Manual) Eosinophils # (Manual) APTT POC ABG pH POC ABG pCO2 Sodium Potassium Chloride Carbon Dioxide BUN Creatinine Glucose POC Glucose 163 H 138 H 151 H Uric Acid Calcium Phosphorus Magnesium Total Bilirubin Alkaline Phosphatase Ammonia Total Protein Albumin Urine WBC (Auto) Crossmatch 03/20/16 03/20/16 03/20/16 21:00 23:55 Unknown WBC 30.1 H RBC 3.23 L Hgb Hct 29.6 L D MCV RDW 16.2 H Plt Count Lymph % (Auto) C[place] % (Auto) [place] # Eos # Seg Neutrophils % Seg Neuts % (Manual) Lymphocytes % (Manual) Monocytes % (Manual) Seg Neutrophils # Seg Neutrophils # Man Lymphocytes # (Manual) Monocytes # (Manual) Eosinophils # (Manual) APTT POC ABG pH POC ABG pCO2 25.9 L Sodium Potassium Chloride Carbon Dioxide BUN Creatinine Glucose POC Glucose 167 H Uric Acid Calcium Phosphorus Magnesium Total Bilirubin Alkaline Phosphatase Ammonia Total Protein Albumin Urine WBC (Auto) Crossmatch 03/20/16 03/21/16 03/21/16 Unknown 04:45 04:45 WBC 28.0 H RBC 3.37 L Hgb Hct MCV RDW 16.4 H Plt Count Lymph % (Auto) C[place] % (Auto) [place] # Eos # Seg Neutrophils % Seg Neuts % (Manual) Lymphocytes % (Manual) Monocytes % (Manual) Seg Neutrophils # Seg Neutrophils # Man Lymphocytes # (Manual) Monocytes # (Manual) Eosinophils # (Manual) APTT POC ABG pH POC ABG pCO2 Sodium Potassium 5.1 H Chloride 110.4 H Carbon Dioxide 14 L BUN 34 H 37 H Creatinine 2.9 H 3.2 H Glucose 131 H 124 H POC Glucose Uric Acid Calcium 7.5 L 7.1 L Phosphorus 4.6 H Magnesium 1.6 L Total Bilirubin Alkaline Phosphatase Ammonia Total Protein Albumin Urine WBC (Auto) Crossmatch 03/21/16 03/21/16 03/21/16 05:52 11:23 17:48 WBC RBC Hgb Hct MCV RDW Plt Count Lymph % (Auto) C[place] % (Auto) [place] # Eos # Seg Neutrophils % Seg Neuts % (Manual) Lymphocytes % (Manual) Monocytes % (Manual) Seg Neutrophils # Seg Neutrophils # Man Lymphocytes # (Manual) Monocytes # (Manual) Eosinophils # (Manual) APTT POC ABG pH POC ABG pCO2 Sodium Potassium Chloride Carbon Dioxide BUN Creatinine Glucose POC Glucose 136 H 144 H 149 H Uric Acid Calcium Phosphorus Magnesium Total Bilirubin Alkaline Phosphatase Ammonia Total Protein Albumin Urine WBC (Auto) Crossmatch 03/21/16 03/22/16 03/22/16 22:05 00:44 04:30 WBC 23.2 H RBC 3.38 L Hgb Hct MCV RDW 16.1 H Plt Count Lymph % (Auto) C[place] % (Auto) [place] # Eos # Seg Neutrophils % Seg Neuts % (Manual) Lymphocytes % (Manual) Monocytes % (Manual) Seg Neutrophils # Seg Neutrophils # Man Lymphocytes # (Manual) Monocytes # (Manual) Eosinophils # (Manual) APTT POC ABG pH POC ABG pCO2 Sodium Potassium Chloride Carbon Dioxide BUN Creatinine Glucose POC Glucose 129 H 121 H Uric Acid Calcium Phosphorus Magnesium Total Bilirubin Alkaline Phosphatase Ammonia Total Protein Albumin Urine WBC (Auto) Crossmatch 03/22/16 03/22/16 03/22/16 04:30 06:17 17:47 WBC RBC Hgb Hct MCV RDW Plt Count Lymph % (Auto) C[place] % (Auto) [place] # Eos # Seg Neutrophils % Seg Neuts % (Manual) Lymphocytes % (Manual) Monocytes % (Manual) Seg Neutrophils # Seg Neutrophils # Man Lymphocytes # (Manual) Monocytes # (Manual) Eosinophils # (Manual) APTT POC ABG pH POC ABG pCO2 Sodium Potassium 3.0 L D Chloride Carbon Dioxide BUN 27 H Creatinine 1.5 H D Glucose 124 H POC Glucose 120 H Uric Acid Calcium 6.9 L Phosphorus Magnesium Total Bilirubin Alkaline Phosphatase Ammonia Total Protein Albumin Urine WBC (Auto) 138.0 H Crossmatch 03/23/16 03/23/16 03/23/16 04:00 07:00 12:52 WBC 22.2 H RBC 3.59 L Hgb Hct MCV RDW 15.8 H Plt Count Lymph % (Auto) C[place] % (Auto) [place] # Eos # Seg Neutrophils % Seg Neuts % (Manual) Lymphocytes % (Manual) Monocytes % (Manual) Seg Neutrophils # Seg Neutrophils # Man Lymphocytes # (Manual) Monocytes # (Manual) Eosinophils # (Manual) APTT POC ABG pH POC ABG pCO2 Sodium Potassium 3.1 L Chloride Carbon Dioxide BUN Creatinine Glucose 111 H POC Glucose 112 H Uric Acid Calcium 6.6 L Phosphorus Magnesium Total Bilirubin Alkaline Phosphatase Ammonia Total Protein Albumin Urine WBC (Auto) Crossmatch 03/23/16 03/23/16 03/24/16 17:21 23:53 06:08 WBC RBC Hgb Hct MCV RDW Plt Count Lymph % (Auto) C[place] % (Auto) [place] # Eos # Seg Neutrophils % Seg Neuts % (Manual) Lymphocytes % (Manual) Monocytes % (Manual) Seg Neutrophils # Seg Neutrophils # Man Lymphocytes # (Manual) Monocytes # (Manual) Eosinophils # (Manual) APTT POC ABG pH POC ABG pCO2 Sodium Potassium Chloride Carbon Dioxide BUN Creatinine Glucose POC Glucose 120 H 110 H 127 H Uric Acid Calcium Phosphorus Magnesium Total Bilirubin Alkaline Phosphatase Ammonia Total Protein Albumin Urine WBC (Auto) Crossmatch 03/24/16 03/24/16 03/24/16 06:44 06:44 11:22 WBC 25.1 H RBC 3.22 L Hgb 9.8 L Hct 29.6 L MCV RDW 15.8 H Plt Count Lymph % (Auto) C[place] % (Auto) [place] # Eos # Seg Neutrophils % Seg Neuts % (Manual) Lymphocytes % (Manual) Monocytes % (Manual) Seg Neutrophils # Seg Neutrophils # Man Lymphocytes # (Manual) Monocytes # (Manual) Eosinophils # (Manual) APTT POC ABG pH POC ABG pCO2 Sodium Potassium Chloride Carbon Dioxide BUN Creatinine 0.5 L Glucose 123 H POC Glucose 107 H Uric Acid Calcium 6.4 L Phosphorus Magnesium Total Bilirubin Alkaline Phosphatase Ammonia Total Protein Albumin Urine WBC (Auto) Crossmatch 03/24/16 03/24/16 03/25/16 16:17 23:44 04:50 WBC 25.2 H RBC 3.34 L Hgb 10.0 L Hct MCV RDW 16.1 H Plt Count Lymph % (Auto) Cedar % (Auto) C[place] # Eos # Seg Neutrophils % Seg Neuts % (Manual) Lymphocytes % (Manual) Monocytes % (Manual) Seg Neutrophils # Seg Neutrophils # Man Lymphocytes # (Manual) Monocytes # (Manual) Eosinophils # (Manual) APTT POC ABG pH POC ABG pCO2 Sodium Potassium Chloride Carbon Dioxide BUN Creatinine Glucose POC Glucose 135 H 156 H Uric Acid Calcium Phosphorus Magnesium Total Bilirubin Alkaline Phosphatase Ammonia Total Protein Albumin Urine WBC (Auto) Crossmatch 03/25/16 03/25/16 03/25/16 04:50 06:14 12:24 WBC RBC Hgb Hct MCV RDW Plt Count Lymph % (Auto) C[place] % (Auto) [place] # Eos # Seg Neutrophils % Seg Neuts % (Manual) Lymphocytes % (Manual) Monocytes % (Manual) Seg Neutrophils # Seg Neutrophils # Man Lymphocytes # (Manual) Monocytes # (Manual) Eosinophils # (Manual) APTT POC ABG pH POC ABG pCO2 Sodium Potassium Chloride Carbon Dioxide BUN Creatinine 0.4 L Glucose POC Glucose 106 H 106 H Uric Acid Calcium 6.3 L Phosphorus Magnesium Total Bilirubin Alkaline Phosphatase Ammonia Total Protein Albumin Urine WBC (Auto) Crossmatch 03/26/16 03/26/16 03/26/16 01:25 04:00 06:12 WBC 21.6 H RBC 3.22 L Hgb 9.7 L Hct 29.7 L MCV RDW 15.9 H Plt Count Lymph % (Auto) Cedar % (Auto) Cedar # Eos # Seg Neutrophils % Seg Neuts % (Manual) 93.0 H Lymphocytes % (Manual) 2.0 L Monocytes % (Manual) Seg Neutrophils # Seg Neutrophils # Man 20.1 H Lymphocytes # (Manual) 0.4 L Monocytes # (Manual) 0.9 H Eosinophils # (Manual) APTT POC ABG pH POC ABG pCO2 Sodium Potassium Chloride Carbon Dioxide BUN Creatinine 0.4 L Glucose 116 H POC Glucose 117 H Uric Acid Calcium 6.5 L Phosphorus Magnesium Total Bilirubin 1.3 H Alkaline Phosphatase 155 H Ammonia Total Protein Albumin 1.5 L Urine WBC (Auto) Crossmatch 03/26/16 03/26/16 03/26/16 06:42 11:18 16:21 WBC RBC Hgb Hct MCV RDW Plt Count Lymph % (Auto) Cedar % (Auto) Cedar # Eos # Seg Neutrophils % Seg Neuts % (Manual) Lymphocytes % (Manual) Monocytes % (Manual) Seg Neutrophils # Seg Neutrophils # Man Lymphocytes # (Manual) Monocytes # (Manual) Eosinophils # (Manual) APTT POC ABG pH POC ABG pCO2 Sodium Potassium Chloride Carbon Dioxide BUN Creatinine Glucose POC Glucose 120 H 109 H 112 H Uric Acid Calcium Phosphorus Magnesium Total Bilirubin Alkaline Phosphatase Ammonia Total Protein Albumin Urine WBC (Auto) Crossmatch
[2016-03-27] MEDS: HEPARIN SUB-Q SCH ×3 (02:47→17:13)
[2016-03-27] MEDS ORDERED: TYLENOL PO PRN (05:59)
[2016-03-27] MEDS: NOVOLOG SUB-Q SCH ×3 (06:29→18:34)
[2016-03-27 07:50] LABS: Alanine Aminotransferase 12 units/L (7-56); Albumin 1.7 g/dL (3.9-5); Albumin/Globulin Ratio 0.3 %; Alkaline Phosphatase 216 units/L (35-129); Blood Urea Nitrogen 9 mg/dL (7-17); Calcium 6.8 mg/dL (8.4-10.2); Carbon Dioxide 24 mmol/L (22-30); Chloride 106.4 mmol/L (98-107); Glucose 111 mg/dL (65-100); Potassium 4.4 mmol/L (3.6-5.0); Sodium 140 mmol/L (137-145); Total Protein 6.7 g/dL (6.3-8.2)
[2016-03-27 07:53] LABS: Anion Gap 14 mmol/L
[2016-03-27 08:05] LABS: Hematocrit 29.2 % (30.3-42.9); Hemoglobin 9.4 gm/dl (10.1-14.3); Mean Corpuscular HGB Conc 32 % (30-34); Mean Corpuscular Hemoglobin 30 pg (28-32); Mean Corpuscular Volume 94 fl (79-97); Platelet Count 406 K/mm3 (140-440); Red Blood Count 3.11 M/mm3 (3.65-5.03); Red Cell Distribution Width 16.3 % (13.2-15.2)
[2016-03-27 08:07] LABS: White Blood Count 21.4 K/mm3 (4.5-11.0)
[2016-03-27] MEDS: PULMICORT IH SCH ×2 (08:14→20:21)
[2016-03-27] MEDS: BROVANA NEBU IH SCH ×2 (08:14→20:21)
[2016-03-27 09:59] LABS: Basophils % (Manual) 0 % (0.0-1.8); Blastocytes % (Manual) 0 %; Eosinophils % (Manual) 0.5 % (0.0-4.3); Total Cells Counted Percent 9.5
[2016-03-27 10:00] LABS: Anisocytosis 1+; Diff Status Complete; Platelet Estimate Consistent w Auto; Target Cells 1+
[2016-03-27] MEDS: TENORMIN PO SCH (12:28)
[2016-03-27] MEDS: FOLVITE PO SCH (12:29)
[2016-03-27] MEDS: VITAMIN B-1 FEEDTUBE SCH (12:34)
--- NOTE | 2016-03-27 14:43 | Progress Note ---
Assessment and Plan 1. Acute Metabolic encephalopathy. Disoriented, confused. Negative, MRI no acute intracranial abnormality noted Lumbar puncture and CSF analysis negative 2. Acute respiratory failure. On bronchodilators, supplemental oxygen and IV Solu-Medrol. 3. Anemia due to chronic disease. Optimize discharge status, trend H&H 4. Dysphagia, secondary to metabolic encephalopathy: PEG tube placed. Continue tube feeding. 5. Acute kidney injury, now resolved. Cr 0.5 today from 3.2, few days ago. Nephrology following. Gonzalez catheter, strict I/O 6. Hydronephrosis bilat. CT Abd did not show any etiology. Consulted Urology. Discussed case with Dr. Prabhakar and he recommended repeat CT abdomen. This was negative for is done today, report pending. 7. Leukocytosis. fluctuating. No fever. WBC 25 today. Continue to monitor off antibiotics as recommended by ID. Positive urine cultures for Escherichia coli almost 3 weeks ago. Completed antibiotics. ID Recommend monitor off antibiotics 8. Hypertension. Well controlled on Atenolol, lisinopril, clonidine pr Code sataFull code status --DVT prophylaxis with heparin Subjective Date of service: 03/27/16 Principal diagnosis: AMS/dysphagia/malnutrition Interval history: Still altered in her mental status. Pelvic however unable to follow any command and talking out of her head Objective - Constitutional Vitals: Vital Signs - 12hr 03/27/16 03/27/16 03/27/16 04:00 06:13 07:00 Temperature 98.7 F 99.4 F Pulse Rate Pulse Rate [ Anterior Right Upper Lobe] Pulse Rate [ 75 91 H Right Radial] Respiratory 20 20 22 Rate Respiratory Rate [Anterior Right Upper Lobe] Blood Pressure Blood Pressure 133/63 132/76 [Right Radial Artery] O2 Sat by Pulse 100 98 Oximetry 03/27/16 03/27/16 03/27/16 08:15 08:26 08:29 Temperature Pulse Rate Pulse Rate [ 84 82 Anterior Right Upper Lobe] Pulse Rate [ Right Radial] Respiratory Rate Respiratory 17 18 Rate [Anterior Right Upper Lobe] Blood Pressure Blood Pressure [Right Radial Artery] O2 Sat by Pulse 99 Oximetry 03/27/16 12:28 Temperature Pulse Rate 91 H Pulse Rate [ Anterior Right Upper Lobe] Pulse Rate [ Right Radial] Respiratory Rate Respiratory Rate [Anterior Right Upper Lobe] Blood Pressure 132/76 Blood Pressure [Right Radial Artery] O2 Sat by Pulse Oximetry General appearance: Present: mild distress, well-nourished - EENT Eyes: PERRL, EOM intact ENT: hearing intact, clear oral mucosa Ears: bilateral: normal - Neck Neck: supple, normal ROM - Respiratory Respiratory effort: normal Respiratory: bilateral: CTA - Breasts Breasts: normal - Cardiovascular Rhythm: regular Heart Sounds: Present: S1 & S2. Absent: gallop, rub Extremities: pulses intact, No edema, normal color, Full ROM - Gastrointestinal General gastrointestinal: Present: soft, non-tender, non-distended, normal bowel sounds - Genitourinary Female genitourinary: normal - Integumentary Integumentary: clear, warm, dry - Musculoskeletal Musculoskeletal: 1, strength equal bilaterally - Neurologic Neurologic: moves all extremities - Psychiatric Psychiatric: other (confused. Disoriented) - Labs CBC & Chem 7: 03/27/16 07:19 03/27/16 07:19 Labs: Abnormal lab results 03/26/16 03/27/16 03/27/16 Range/Units 16:21 00:27 06:25 WBC (4.5-11.0) K/mm3 RBC (3.65-5.03) M/mm3 Hgb (10.1-14.3) gm/dl Hct (30.3-42.9) % RDW (13.2-15.2) % Seg Neuts % (Manual) (40.0-70.0) % Lymphocytes % (Manual) (13.4-35.0) % Monocytes % (Manual) (0.0-7.3) % Seg Neutrophils # Man (1.8-7.7) K/mm3 Monocytes # (Manual) (0.0-0.8) K/mm3 Creatinine (0.7-1.2) mg/dL Glucose (65-100) mg/dL POC Glucose 112 H 124 H 116 H (70-105) Calcium (8.4-10.2) mg/dL Alkaline Phosphatase (35-129) units/L Albumin (3.9-5) g/dL 03/27/16 03/27/16 03/27/16 Range/Units 07:19 07:19 11:12 WBC 21.4 H (4.5-11.0) K/mm3 RBC 3.11 L (3.65-5.03) M/mm3 Hgb 9.4 L (10.1-14.3) gm/dl Hct 29.2 L (30.3-42.9) % RDW 16.3 H (13.2-15.2) % Seg Neuts % (Manual) 83.0 H (40.0-70.0) % Lymphocytes % (Manual) 7.5 L (13.4-35.0) % Monocytes % (Manual) 9.0 H (0.0-7.3) % Seg Neutrophils # Man 17.8 H (1.8-7.7) K/mm3 Monocytes # (Manual) 1.9 H (0.0-0.8) K/mm3 Creatinine 0.4 L (0.7-1.2) mg/dL Glucose 111 H (65-100) mg/dL POC Glucose 109 H (70-105) Calcium 6.8 L (8.4-10.2) mg/dL Alkaline Phosphatase 216 H (35-129) units/L Albumin 1.7 L (3.9-5) g/dL
--- NOTE | 2016-03-27 16:28 | Progress Note ---
Assessment and Plan Current antibiotics: None Previous antibiotics: Zosyn 4.5 grams IV q8h 03/03-03/07 Levaquin 750 mg IV q24h 03/03-03/06 ASSESSMENT: Edith Coelho is a 60-year-old female with hypertension, obstructive sleep apnea and COPD who was admitted to [facility] on 03/02/16 with a one-month history of decreased appetite and increasing weakness. She has had a persistent leukocytosis. Problem list: 1. Leukocytosis -Likely reactive secondary to whatever is causing her encephalopathy: ? ETOH withdrawal, etc. -Rule out infection although work up negative to date and no obvious source on exam -Rule out primary hematologic reason 2. AMS -Rule out toxic metabolic encephalopathy -Rule out ETOH withdrawal -Patient is still behaving as if there is some sort of neurologic etiology to her illness although none has been uncovered to date -MRI with no obvious abnormalities. -CSF normal although no serologies sent 3. Pyuria & previous urine culture growing E coli -Likely secondary to chronic Gonzalez and not urinary tract infection 4. MICAH -Resolved 5. Bilateral hydronephrosis -Seen on 03/21 CT scan -Resolved with bladder decompression PLAN: 1. Continue to follow off of antibiotics 2. Heme consult reveiwed and appreciated 3. Continued supportive measures 4. If patient does not clinically improve, may need to consider transfer to a facility where a thorough neurologic evaluation can be done Bayron Avitia MD [facility] Office: [phone] Subjective Date of service: 03/27/16 Principal diagnosis: AMS/dysphagia/malnutrition Interval history: Awake and responsive but difficult to understand her speech. No new problems overnight reported by the nursing staff. Objective - Exam Narrative Exam: GENERAL: Well-developed, cachectic female who is in no acute distress but quite lethargic and does not follow commands. HEAD: Normocephalic. No lesions seen. EYES: Pupils are equal reactive to light and accommodation. There is no scleral icterus. Optic fundi are not examined. There is bilateral arcus senilis. EARS: Tympanic membranes are normal. THROAT: Oropharynx is normal with no evidence of oral candidiasis or pharyngitis. Poor dentition but no obvious dental infection seen. Some bleeding from the upper lip. NECK: Supple. No enlargement of the thyroid gland. No significant cervical lymphadenopathy. No jugular venous distention at 30. LUNGS: Clear with no adventitious sounds. HEART: Regular rate. S1 and S2 are normal. There are no murmurs, gallops, clicks or rubs heard. ABDOMEN: Soft, slightly distended and mildly, tender. Liver and spleen are not palpably enlarged or tender. No palpable masses. No ascites. Bowel sounds are normoactive. RECTAL: Not examined EXTREMITIES: No rash, peripheral lymphadenopathy, clubbing or edema. : Diaper in place. NEUROLOGIC: No focal findings. Follows simple commands - Constitutional Vitals: Vital Signs Temp Pulse Resp BP Pulse Ox 99 F 77 24 117/80 99 03/27/16 15:00 03/27/16 15:00 03/27/16 15:00 03/27/16 15:00 03/27/16 08:29 Temperature -Last 24 Hours Temperature 99 F Temperature 99.4 F Temperature 98.7 F Temperature 97.6 F Temperature 99.2 F Temperature 99 F - Labs CBC & Chem 7: 03/27/16 07:19 03/27/16 07:19 Labs: Abnormal lab results Microbiology 03/22/16 17:47 Urine,Gonzalez Port Urine Culture - > 100,000 mixed fredrick compatible with contamination 03/21/16 15:31 Stool Stool Occult Blood (MURALI) - Final 03/12/16 Unknown Cerebral Spinal Fluid CSF Culture - No growth 03/04/16 09:18 Peripheral/Venous Blood Culture - Final NO GROWTH AFTER 5 DAYS 03/04/16 09:01 Peripheral/Venous Blood Culture - Final NO GROWTH AFTER 5 DAYS 03/04/16 Unknown Urine,Clean Catch Urine Culture - Final Escherichia Coli
--- NOTE | 2016-03-27 18:29 | Progress Note ---
Assessment and Plan Imp: 1. Metabolic encephalopathy, ongoing and of unclear etiology 2. Pleural effusions/ascites; r/o CMP/CHF 3. MICAH, better 4. Acute respiratory failure, hypoxia, better 5. Oropharyngeal dysphagia 2/2 #1, s/p PEG Rec: 1. Avoid sedating meds 2. Check Echo re: #2 above 3. TFs per PEG 4. Agree w/ neurology f/u 5. DVT PPx No family present Subjective Date of service: 03/27/16 Principal diagnosis: AMS/dysphagia/malnutrition Interval history: No events. Confused/awake, oriented x 1. Cannot give any coherent history. On NC. Active Medications Acetaminophen (Tylenol) 650 mg PO Q4H PRN PRN Reason: Pain MILD(1-3)/Fever >100.5/GILL Last Admin: 03/27/16 06:13 Dose: 650 mg Albuterol (Proventil) 2.5 mg IH Q6HRT PRN PRN Reason: Shortness Of Breath Last Admin: 03/18/16 11:17 Dose: 2.5 mg Lipase/Protease/Amylase (Pancreaze Dr 10,500 Unit) 1 each FEEDTUBE PRN PRN PRN Reason: For Clogged Feeding Tube Arformoterol Tartrate (Brovana Nebu) 15 mcg IH Q12HRT [facility] Last Admin: 03/27/16 08:14 Dose: 15 mcg Atenolol (Tenormin) 50 mg PO QDAY [facility] Last Admin: 03/27/16 12:28 Dose: 50 mg Budesonide (Pulmicort) 0.5 mg IH Q12HRT [facility] Last Admin: 03/27/16 08:14 Dose: 0.5 mg Clonidine HCl (Catapres) 0.1 mg PO Q4H PRN PRN Reason: For SBP>170 or DBP>110 Last Admin: 03/27/16 12:28 Dose: 0.1 mg Dextrose (D50w (25gm)) 50 ml IV PRN PRN PRN Reason: Hypoglycemia Last Admin: 03/19/16 07:20 Dose: 50 ml Folic Acid (Folvite) 1 mg PO QDAY [facility] Last Admin: 03/27/16 12:29 Dose: 1 mg Heparin Sodium (Porcine) (Heparin) 5,000 unit SUB-Q Q8HR [facility] Last Admin: 03/27/16 17:13 Dose: 5,000 unit Hydralazine HCl (Apresoline) 20 mg IV Q6H PRN PRN Reason: Blood Pressure Last Admin: 03/15/16 22:33 Dose: 20 mg Insulin Aspart (Novolog) 0 units SUB-Q Q6HR [facility]ATT[facility] PRN Reason: Protocol Last Admin: 03/27/16 12:31 Dose: Not Given Simple Syrup (Simple Syrup) 15 ml FEEDTUBE PRN PRN PRN Reason: Hypoglycemia Simple Syrup (Simple Syrup) 30 ml FEEDTUBE PRN PRN PRN Reason: Hypoglycemia Sodium Bicarbonate (Sodium Bicarbonate) 325 mg FEEDTUBE PRN PRN PRN Reason: For Clogged Feeding Tube Thiamine HCl (Vitamin B-1) 100 mg FEEDTUBE QDAY [facility] Last Admin: 03/27/16 12:34 Dose: 100 mg Objective Vital Signs - 12hr 03/27/16 03/27/16 03/27/16 07:00 08:15 08:26 Temperature 99.4 F Pulse Rate Pulse Rate [ 84 82 Anterior Right Upper Lobe] Pulse Rate [ 91 H Right Radial] Respiratory 22 Rate Respiratory 17 18 Rate [Anterior Right Upper Lobe] Blood Pressure Blood Pressure 132/76 [Right Radial Artery] O2 Sat by Pulse 98 Oximetry 03/27/16 03/27/16 03/27/16 08:29 12:28 15:00 Temperature 99 F Pulse Rate 91 H Pulse Rate [ Anterior Right Upper Lobe] Pulse Rate [ 77 Right Radial] Respiratory 24 Rate Respiratory Rate [Anterior Right Upper Lobe] Blood Pressure 132/76 Blood Pressure 117/80 [Right Radial Artery] O2 Sat by Pulse 99 Oximetry Constitutional: alert, other (confused) Eyes: non-icteric ENT: oropharynx dry Neck: supple Effort: normal Ascultation: Bilateral: clear Cardiovascular: regular rate and rhythm (no mrg) Gastrointestinal: normoactive bowel sounds, soft, non-tender, non-distended Integumentary: normal Extremities: no cyanosis, no edema, pink and warm Neurologic: pupils equal and round, unable to assess (confused, grossly nonfocal ) Psychiatric: other (unable to assess) CBC and BMP: 03/27/16 07:19 03/27/16 07:19 ABG, PT/INR, D-dimer: ABG POC ABG pH 7.365 (7.35-7.45) 03/20/16 21:00 POC ABG pCO2 25.9 (35-45) L 03/20/16 21:00 POC ABG pO2 90 (80-105) 03/20/16 21:00 POC ABG HCO3 14.8 03/20/16 21:00 POC ABG Total CO2 16 03/20/16 21:00 POC ABG O2 Sat 97 03/20/16 21:00 PT/INR, D-dimer PT 13.0 Sec. (12.2-14.9) 03/12/16 09:50 INR 0.99 (0.87-1.13) 03/12/16 09:50 Abnormal lab findings: Abnormal Labs 03/03/16 03/03/16 03/04/16 15:47 15:47 05:14 WBC 19.2 H 23.1 H RBC 3.64 L Hgb Hct MCV RDW 16.5 H 16.6 H Plt Count 449 H Lymph % (Auto) Christian % (Auto) Christian # Eos # Seg Neutrophils % Seg Neuts % (Manual) Lymphocytes % (Manual) Monocytes % (Manual) Seg Neutrophils # Seg Neutrophils # Man Lymphocytes # (Manual) Monocytes # (Manual) Eosinophils # (Manual) APTT POC ABG pH POC ABG pCO2 Sodium Potassium 2.8 L* Chloride 96.5 L Carbon Dioxide 20 L BUN Creatinine 0.6 L Glucose 139 H POC Glucose Uric Acid Calcium Phosphorus Magnesium Total Bilirubin Alkaline Phosphatase Ammonia Total Protein Albumin Urine WBC (Auto) Crossmatch 03/04/16 03/04/16 03/04/16 05:14 09:01 19:38 WBC RBC Hgb Hct MCV RDW Plt Count Lymph % (Auto) Christian % (Auto) Christian # Eos # Seg Neutrophils % Seg Neuts % (Manual) Lymphocytes % (Manual) Monocytes % (Manual) Seg Neutrophils # Seg Neutrophils # Man Lymphocytes # (Manual) Monocytes # (Manual) Eosinophils # (Manual) APTT POC ABG pH POC ABG pCO2 Sodium 135 L Potassium 3.3 L Chloride 95.7 L Carbon Dioxide 19 L BUN Creatinine Glucose 130 H POC Glucose Uric Acid Calcium 8.0 L Phosphorus 1.4 L Magnesium 1.0 L Total Bilirubin 1.9 H Alkaline Phosphatase Ammonia 95.0 H Total Protein Albumin 3.0 L Urine WBC (Auto) Crossmatch 03/05/16 03/05/16 03/05/16 07:39 07:39 17:59 WBC 20.3 H RBC 3.50 L Hgb Hct MCV 98 H RDW 16.1 H Plt Count Lymph % (Auto) Christian % (Auto) Christian # Eos # Seg Neutrophils % Seg Neuts % (Manual) Lymphocytes % (Manual) Monocytes % (Manual) Seg Neutrophils # Seg Neutrophils # Man Lymphocytes # (Manual) Monocytes # (Manual) Eosinophils # (Manual) APTT POC ABG pH POC ABG pCO2 Sodium Potassium 2.7 L* 3.2 L Chloride Carbon Dioxide 19 L 18 L BUN Creatinine 1.4 H D 1.4 H Glucose 131 H POC Glucose Uric Acid Calcium 7.6 L 7.3 L Phosphorus 6.7 H D Magnesium 2.6 H Total Bilirubin 1.4 H Alkaline Phosphatase Ammonia Total Protein 5.9 L Albumin 2.4 L Urine WBC (Auto) Crossmatch 03/06/16 03/06/16 03/06/16 09:54 09:54 18:07 WBC 22.2 H RBC 3.19 L Hgb 9.9 L Hct MCV 98 H RDW 16.8 H Plt Count Lymph % (Auto) Christian % (Auto) Christian # Eos # Seg Neutrophils % Seg Neuts % (Manual) Lymphocytes % (Manual) Monocytes % (Manual) Seg Neutrophils # Seg Neutrophils # Man Lymphocytes # (Manual) Monocytes # (Manual) Eosinophils # (Manual) APTT POC ABG pH POC ABG pCO2 Sodium 150 H D Potassium 2.8 L* 2.8 L* Chloride 113.5 H Carbon Dioxide 16 L 16 L BUN Creatinine Glucose 137 H 106 H POC Glucose Uric Acid Calcium 7.4 L 7.7 L Phosphorus Magnesium Total Bilirubin Alkaline Phosphatase Ammonia Total Protein Albumin Urine WBC (Auto) Crossmatch 03/07/16 03/07/16 03/07/16 04:53 04:53 05:43 WBC 19.7 H RBC 3.20 L Hgb 9.9 L Hct MCV RDW 16.6 H Plt Count Lymph % (Auto) Christian % (Auto) Christian # Eos # Seg Neutrophils % Seg Neuts % (Manual) Lymphocytes % (Manual) Monocytes % (Manual) Seg Neutrophils # Seg Neutrophils # Man Lymphocytes # (Manual) Monocytes # (Manual) Eosinophils # (Manual) APTT POC ABG pH POC ABG pCO2 Sodium Potassium 2.9 L* Chloride 114.1 H Carbon Dioxide 19 L BUN Creatinine Glucose 140 H POC Glucose 143 H Uric Acid Calcium 7.8 L Phosphorus Magnesium Total Bilirubin Alkaline Phosphatase Ammonia Total Protein Albumin Urine WBC (Auto) Crossmatch 03/07/16 03/08/16 03/08/16 22:20 05:09 05:09 WBC 32.2 H RBC 3.18 L Hgb 10.0 L Hct MCV RDW 16.8 H Plt Count Lymph % (Auto) Christian % (Auto) Christian # Eos # Seg Neutrophils % Seg Neuts % (Manual) Lymphocytes % (Manual) Monocytes % (Manual) Seg Neutrophils # Seg Neutrophils # Man Lymphocytes # (Manual) Monocytes # (Manual) Eosinophils # (Manual) APTT POC ABG pH POC ABG pCO2 Sodium 155 H D Potassium 6.3 H* D 6.1 H* Chloride Carbon Dioxide 18 L BUN Creatinine 1.6 H D Glucose 213 H POC Glucose Uric Acid Calcium Phosphorus Magnesium Total Bilirubin Alkaline Phosphatase Ammonia Total Protein Albumin Urine WBC (Auto) Crossmatch 03/08/16 03/08/16 03/08/16 09:11 16:28 17:27 WBC RBC Hgb Hct MCV RDW Plt Count Lymph % (Auto) Christian % (Auto) Christian # Eos # Seg Neutrophils % Seg Neuts % (Manual) Lymphocytes % (Manual) Monocytes % (Manual) Seg Neutrophils # Seg Neutrophils # Man Lymphocytes # (Manual) Monocytes # (Manual) Eosinophils # (Manual) APTT POC ABG pH POC ABG pCO2 Sodium 156 H Potassium Chloride 126.2 H Carbon Dioxide 19 L BUN Creatinine 1.8 H Glucose 175 H POC Glucose 204 H 130 H Uric Acid Calcium Phosphorus Magnesium Total Bilirubin Alkaline Phosphatase Ammonia Total Protein Albumin Urine WBC (Auto) Crossmatch 03/08/16 03/09/16 03/09/16 22:06 05:47 08:00 WBC 29.9 H RBC 2.93 L Hgb 9.0 L Hct 28.4 L MCV RDW 17.4 H Plt Count Lymph % (Auto) Christian % (Auto) Christian # Eos # Seg Neutrophils % Seg Neuts % (Manual) Lymphocytes % (Manual) Monocytes % (Manual) Seg Neutrophils # Seg Neutrophils # Man Lymphocytes # (Manual) Monocytes # (Manual) Eosinophils # (Manual) APTT POC ABG pH POC ABG pCO2 Sodium Potassium Chloride Carbon Dioxide BUN Creatinine Glucose POC Glucose 192 H 206 H Uric Acid Calcium Phosphorus Magnesium Total Bilirubin Alkaline Phosphatase Ammonia Total Protein Albumin Urine WBC (Auto) Crossmatch 03/09/16 03/09/16 03/09/16 08:00 11:33 16:03 WBC RBC Hgb Hct MCV RDW Plt Count Lymph % (Auto) Christian % (Auto) Christian # Eos # Seg Neutrophils % Seg Neuts % (Manual) Lymphocytes % (Manual) Monocytes % (Manual) Seg Neutrophils # Seg Neutrophils # Man Lymphocytes # (Manual) Monocytes # (Manual) Eosinophils # (Manual) APTT POC ABG pH POC ABG pCO2 Sodium 154 H Potassium Chloride 123.0 H Carbon Dioxide 21 L BUN 18 H Creatinine 1.9 H Glucose 179 H POC Glucose 152 H 130 H Uric Acid Calcium 8.2 L Phosphorus Magnesium Total Bilirubin Alkaline Phosphatase Ammonia Total Protein Albumin Urine WBC (Auto) Crossmatch 03/10/16 03/10/16 03/10/16 06:16 11:53 17:22 WBC RBC Hgb Hct MCV RDW Plt Count Lymph % (Auto) Christian % (Auto) Christian # Eos # Seg Neutrophils % Seg Neuts % (Manual) Lymphocytes % (Manual) Monocytes % (Manual) Seg Neutrophils # Seg Neutrophils # Man Lymphocytes # (Manual) Monocytes # (Manual) Eosinophils # (Manual) APTT POC ABG pH POC ABG pCO2 Sodium Potassium Chloride Carbon Dioxide BUN Creatinine Glucose POC Glucose 170 H 141 H 159 H Uric Acid Calcium Phosphorus Magnesium Total Bilirubin Alkaline Phosphatase Ammonia Total Protein Albumin Urine WBC (Auto) Crossmatch 03/10/16 03/10/16 03/10/16 Unknown Unknown Unknown WBC 22.8 H RBC 2.70 L Hgb 8.7 L Hct 26.4 L MCV 98 H RDW 17.1 H Plt Count Lymph % (Auto) Christian % (Auto) Christian # Eos # Seg Neutrophils % Seg Neuts % (Manual) 78.0 H Lymphocytes % (Manual) 12.0 L Monocytes % (Manual) Seg Neutrophils # Seg Neutrophils # Man 17.8 H Lymphocytes # (Manual) Monocytes # (Manual) 1.1 H Eosinophils # (Manual) 0.9 H APTT POC ABG pH POC ABG pCO2 Sodium 147 H Potassium Chloride 115.0 H Carbon Dioxide 20 L BUN 22 H Creatinine 1.6 H Glucose 142 H POC Glucose Uric Acid Calcium 7.7 L Phosphorus Magnesium 1.5 L Total Bilirubin Alkaline Phosphatase Ammonia Total Protein Albumin Urine WBC (Auto) Crossmatch 03/11/16 03/11/16 03/11/16 00:11 00:50 06:15 WBC 24.3 H RBC 2.93 L Hgb 9.0 L Hct 28.1 L MCV RDW 17.4 H Plt Count Lymph % (Auto) Christian % (Auto) Christian # Eos # Seg Neutrophils % Seg Neuts % (Manual) 74.0 H Lymphocytes % (Manual) 10.0 L Monocytes % (Manual) 8.0 H Seg Neutrophils # Seg Neutrophils # Man 18.0 H Lymphocytes # (Manual) Monocytes # (Manual) 1.9 H Eosinophils # (Manual) 1.0 H APTT POC ABG pH POC ABG pCO2 Sodium Potassium Chloride Carbon Dioxide BUN Creatinine Glucose POC Glucose 143 H 136 H Uric Acid Calcium Phosphorus Magnesium Total Bilirubin Alkaline Phosphatase Ammonia Total Protein Albumin Urine WBC (Auto) Crossmatch 03/11/16 03/12/16 03/12/16 07:24 09:50 12:10 WBC RBC Hgb Hct MCV RDW Plt Count Lymph % (Auto) Christian % (Auto) Christian # Eos # Seg Neutrophils % Seg Neuts % (Manual) Lymphocytes % (Manual) Monocytes % (Manual) Seg Neutrophils # Seg Neutrophils # Man Lymphocytes # (Manual) Monocytes # (Manual) Eosinophils # (Manual) APTT 38.8 H POC ABG pH POC ABG pCO2 Sodium 135 L D Potassium Chloride Carbon Dioxide BUN 27 H Creatinine 1.8 H Glucose 136 H POC Glucose 111 H Uric Acid Calcium 7.5 L Phosphorus Magnesium 1.4 L Total Bilirubin Alkaline Phosphatase Ammonia Total Protein Albumin Urine WBC (Auto) Crossmatch 03/12/16 03/12/16 03/13/16 16:39 21:45 05:00 WBC 19.2 H RBC 2.68 L Hgb 8.5 L Hct 25.7 L MCV RDW 17.4 H Plt Count Lymph % (Auto) 9.3 L Christian % (Auto) 8.7 H Christian # 1.7 H Eos # 0.5 H Seg Neutrophils % 78.6 H Seg Neuts % (Manual) Lymphocytes % (Manual) Monocytes % (Manual) Seg Neutrophils # 15.1 H Seg Neutrophils # Man Lymphocytes # (Manual) Monocytes # (Manual) Eosinophils # (Manual) APTT POC ABG pH POC ABG pCO2 Sodium Potassium Chloride Carbon Dioxide BUN Creatinine Glucose POC Glucose 112 H 124 H Uric Acid Calcium Phosphorus Magnesium Total Bilirubin Alkaline Phosphatase Ammonia Total Protein Albumin Urine WBC (Auto) Crossmatch 03/13/16 03/13/16 03/14/16 05:00 16:19 06:21 WBC RBC Hgb Hct MCV RDW Plt Count Lymph % (Auto) Christian % (Auto) Christian # Eos # Seg Neutrophils % Seg Neuts % (Manual) Lymphocytes % (Manual) Monocytes % (Manual) Seg Neutrophils # Seg Neutrophils # Man Lymphocytes # (Manual) Monocytes # (Manual) Eosinophils # (Manual) APTT POC ABG pH POC ABG pCO2 Sodium Potassium Chloride Carbon Dioxide 20 L BUN 31 H Creatinine 2.1 H Glucose POC Glucose 61 L 125 H Uric Acid Calcium 7.8 L Phosphorus Magnesium 3.1 H Total Bilirubin Alkaline Phosphatase Ammonia Total Protein Albumin Urine WBC (Auto) Crossmatch 03/14/16 03/14/16 03/15/16 13:48 18:34 00:02 WBC RBC Hgb Hct MCV RDW Plt Count Lymph % (Auto) Christian % (Auto) Christian # Eos # Seg Neutrophils % Seg Neuts % (Manual) Lymphocytes % (Manual) Monocytes % (Manual) Seg Neutrophils # Seg Neutrophils # Man Lymphocytes # (Manual) Monocytes # (Manual) Eosinophils # (Manual) APTT POC ABG pH POC ABG pCO2 Sodium Potassium Chloride Carbon Dioxide BUN Creatinine Glucose POC Glucose 107 H 124 H 138 H Uric Acid Calcium Phosphorus Magnesium Total Bilirubin Alkaline Phosphatase Ammonia Total Protein Albumin Urine WBC (Auto) Crossmatch 03/15/16 03/15/16 03/15/16 06:40 06:40 07:23 WBC 13.5 H RBC 2.32 L Hgb 7.5 L Hct 22.3 L MCV RDW 17.5 H Plt Count Lymph % (Auto) 12.8 L Christian % (Auto) 8.2 H Christian # 1.1 H Eos # Seg Neutrophils % 75.5 H Seg Neuts % (Manual) Lymphocytes % (Manual) Monocytes % (Manual) Seg Neutrophils # 10.2 H Seg Neutrophils # Man Lymphocytes # (Manual) Monocytes # (Manual) Eosinophils # (Manual) APTT POC ABG pH POC ABG pCO2 Sodium Potassium Chloride 110.8 H Carbon Dioxide 16 L BUN 28 H Creatinine 2.4 H Glucose POC Glucose 112 H Uric Acid Calcium 7.0 L Phosphorus Magnesium Total Bilirubin Alkaline Phosphatase Ammonia Total Protein Albumin Urine WBC (Auto) Crossmatch 03/15/16 03/15/16 03/15/16 11:46 16:32 20:52 WBC RBC Hgb Hct MCV RDW Plt Count Lymph % (Auto) Christian % (Auto) Christian # Eos # Seg Neutrophils % Seg Neuts % (Manual) Lymphocytes % (Manual) Monocytes % (Manual) Seg Neutrophils # Seg Neutrophils # Man Lymphocytes # (Manual) Monocytes # (Manual) Eosinophils # (Manual) APTT POC ABG pH POC ABG pCO2 Sodium Potassium Chloride Carbon Dioxide BUN Creatinine Glucose POC Glucose 138 H 127 H 118 H Uric Acid Calcium Phosphorus Magnesium Total Bilirubin Alkaline Phosphatase Ammonia Total Protein Albumin Urine WBC (Auto) Crossmatch 03/16/16 03/16/16 03/16/16 06:01 06:01 06:24 WBC 27.8 H RBC 2.41 L Hgb 7.4 L Hct 23.2 L MCV RDW 18.2 H Plt Count Lymph % (Auto) Christian % (Auto) Christian # Eos # Seg Neutrophils % Seg Neuts % (Manual) 91.5 H Lymphocytes % (Manual) 2.5 L Monocytes % (Manual) Seg Neutrophils # Seg Neutrophils # Man 25.4 H Lymphocytes # (Manual) 0.7 L Monocytes # (Manual) Eosinophils # (Manual) APTT POC ABG pH POC ABG pCO2 Sodium Potassium Chloride 113.0 H Carbon Dioxide 15 L BUN 30 H Creatinine 2.6 H Glucose 130 H POC Glucose 159 H Uric Acid Calcium 6.8 L Phosphorus Magnesium Total Bilirubin Alkaline Phosphatase Ammonia Total Protein Albumin Urine WBC (Auto) Crossmatch 03/16/16 03/16/16 03/16/16 11:34 16:37 23:46 WBC RBC Hgb Hct MCV RDW Plt Count Lymph % (Auto) Christian % (Auto) Christian # Eos # Seg Neutrophils % Seg Neuts % (Manual) Lymphocytes % (Manual) Monocytes % (Manual) Seg Neutrophils # Seg Neutrophils # Man Lymphocytes # (Manual) Monocytes # (Manual) Eosinophils # (Manual) APTT POC ABG pH POC ABG pCO2 Sodium Potassium Chloride Carbon Dioxide BUN Creatinine Glucose POC Glucose 164 H 109 H 114 H Uric Acid Calcium Phosphorus Magnesium Total Bilirubin Alkaline Phosphatase Ammonia Total Protein Albumin Urine WBC (Auto) Crossmatch 03/17/16 03/17/16 03/17/16 11:33 22:11 23:50 WBC RBC Hgb Hct MCV RDW Plt Count Lymph % (Auto) Christian % (Auto) Christian # Eos # Seg Neutrophils % Seg Neuts % (Manual) Lymphocytes % (Manual) Monocytes % (Manual) Seg Neutrophils # Seg Neutrophils # Man Lymphocytes # (Manual) Monocytes # (Manual) Eosinophils # (Manual) APTT POC ABG pH 7.319 L POC ABG pCO2 28.6 L Sodium Potassium Chloride 111.6 H Carbon Dioxide 16 L BUN 34 H Creatinine 2.7 H Glucose 115 H POC Glucose 117 H Uric Acid 8.4 H Calcium 7.4 L Phosphorus Magnesium Total Bilirubin Alkaline Phosphatase Ammonia Total Protein Albumin Urine WBC (Auto) Crossmatch 03/17/16 03/18/16 03/19/16 23:50 11:11 05:20 WBC 18.2 H RBC 2.11 L Hgb 6.7 L Hct 20.1 L MCV RDW 17.5 H Plt Count Lymph % (Auto) Christian % (Auto) Christian # Eos # Seg Neutrophils % Seg Neuts % (Manual) Lymphocytes % (Manual) Monocytes % (Manual) Seg Neutrophils # Seg Neutrophils # Man Lymphocytes # (Manual) Monocytes # (Manual) Eosinophils # (Manual) APTT POC ABG pH 7.320 L POC ABG pCO2 29.9 L Sodium Potassium Chloride Carbon Dioxide BUN Creatinine Glucose POC Glucose 124 H Uric Acid Calcium Phosphorus Magnesium Total Bilirubin Alkaline Phosphatase Ammonia Total Protein Albumin Urine WBC (Auto) Crossmatch 03/19/16 03/19/16 03/19/16 05:20 06:11 09:30 WBC RBC Hgb Hct MCV RDW Plt Count Lymph % (Auto) Christian % (Auto) Christian # Eos # Seg Neutrophils % Seg Neuts % (Manual) Lymphocytes % (Manual) Monocytes % (Manual) Seg Neutrophils # Seg Neutrophils # Man Lymphocytes # (Manual) Monocytes # (Manual) Eosinophils # (Manual) APTT POC ABG pH POC ABG pCO2 Sodium Potassium Chloride 114.1 H Carbon Dioxide 16 L BUN 32 H Creatinine 2.2 H Glucose POC Glucose 63 L Uric Acid Calcium 7.7 L Phosphorus Magnesium Total Bilirubin Alkaline Phosphatase Ammonia Total Protein Albumin Urine WBC (Auto) Crossmatch See Detail 03/19/16 03/19/16 03/19/16 12:14 16:30 23:57 WBC RBC Hgb Hct MCV RDW Plt Count Lymph % (Auto) Christian % (Auto) Christian # Eos # Seg Neutrophils % Seg Neuts % (Manual) Lymphocytes % (Manual) Monocytes % (Manual) Seg Neutrophils # Seg Neutrophils # Man Lymphocytes # (Manual) Monocytes # (Manual) Eosinophils # (Manual) APTT POC ABG pH POC ABG pCO2 Sodium Potassium Chloride Carbon Dioxide BUN Creatinine Glucose POC Glucose 138 H 133 H 190 H Uric Acid Calcium Phosphorus Magnesium Total Bilirubin Alkaline Phosphatase Ammonia Total Protein Albumin Urine WBC (Auto) Crossmatch 03/20/16 03/20/16 03/20/16 06:38 11:52 15:36 WBC RBC Hgb Hct MCV RDW Plt Count Lymph % (Auto) Christian % (Auto) Christian # Eos # Seg Neutrophils % Seg Neuts % (Manual) Lymphocytes % (Manual) Monocytes % (Manual) Seg Neutrophils # Seg Neutrophils # Man Lymphocytes # (Manual) Monocytes # (Manual) Eosinophils # (Manual) APTT POC ABG pH POC ABG pCO2 Sodium Potassium Chloride Carbon Dioxide BUN Creatinine Glucose POC Glucose 163 H 138 H 151 H Uric Acid Calcium Phosphorus Magnesium Total Bilirubin Alkaline Phosphatase Ammonia Total Protein Albumin Urine WBC (Auto) Crossmatch 03/20/16 03/20/16 03/20/16 21:00 23:55 Unknown WBC 30.1 H RBC 3.23 L Hgb Hct 29.6 L D MCV RDW 16.2 H Plt Count Lymph % (Auto) Christian % (Auto) Christian # Eos # Seg Neutrophils % Seg Neuts % (Manual) Lymphocytes % (Manual) Monocytes % (Manual) Seg Neutrophils # Seg Neutrophils # Man Lymphocytes # (Manual) Monocytes # (Manual) Eosinophils # (Manual) APTT POC ABG pH POC ABG pCO2 25.9 L Sodium Potassium Chloride Carbon Dioxide BUN Creatinine Glucose POC Glucose 167 H Uric Acid Calcium Phosphorus Magnesium Total Bilirubin Alkaline Phosphatase Ammonia Total Protein Albumin Urine WBC (Auto) Crossmatch 03/20/16 03/21/16 03/21/16 Unknown 04:45 04:45 WBC 28.0 H RBC 3.37 L Hgb Hct MCV RDW 16.4 H Plt Count Lymph % (Auto) Christian % (Auto) Christian # Eos # Seg Neutrophils % Seg Neuts % (Manual) Lymphocytes % (Manual) Monocytes % (Manual) Seg Neutrophils # Seg Neutrophils # Man Lymphocytes # (Manual) Monocytes # (Manual) Eosinophils # (Manual) APTT POC ABG pH POC ABG pCO2 Sodium Potassium 5.1 H Chloride 110.4 H Carbon Dioxide 14 L BUN 34 H 37 H Creatinine 2.9 H 3.2 H Glucose 131 H 124 H POC Glucose Uric Acid Calcium 7.5 L 7.1 L Phosphorus 4.6 H Magnesium 1.6 L Total Bilirubin Alkaline Phosphatase Ammonia Total Protein Albumin Urine WBC (Auto) Crossmatch 03/21/16 03/21/16 03/21/16 05:52 11:23 17:48 WBC RBC Hgb Hct MCV RDW Plt Count Lymph % (Auto) Christian % (Auto) Christian # Eos # Seg Neutrophils % Seg Neuts % (Manual) Lymphocytes % (Manual) Monocytes % (Manual) Seg Neutrophils # Seg Neutrophils # Man Lymphocytes # (Manual) Monocytes # (Manual) Eosinophils # (Manual) APTT POC ABG pH POC ABG pCO2 Sodium Potassium Chloride Carbon Dioxide BUN Creatinine Glucose POC Glucose 136 H 144 H 149 H Uric Acid Calcium Phosphorus Magnesium Total Bilirubin Alkaline Phosphatase Ammonia Total Protein Albumin Urine WBC (Auto) Crossmatch 03/21/16 03/22/16 03/22/16 22:05 00:44 04:30 WBC 23.2 H RBC 3.38 L Hgb Hct MCV RDW 16.1 H Plt Count Lymph % (Auto) Christian % (Auto) Christian # Eos # Seg Neutrophils % Seg Neuts % (Manual) Lymphocytes % (Manual) Monocytes % (Manual) Seg Neutrophils # Seg Neutrophils # Man Lymphocytes # (Manual) Monocytes # (Manual) Eosinophils # (Manual) APTT POC ABG pH POC ABG pCO2 Sodium Potassium Chloride Carbon Dioxide BUN Creatinine Glucose POC Glucose 129 H 121 H Uric Acid Calcium Phosphorus Magnesium Total Bilirubin Alkaline Phosphatase Ammonia Total Protein Albumin Urine WBC (Auto) Crossmatch 03/22/16 03/22/16 03/22/16 04:30 06:17 17:47 WBC RBC Hgb Hct MCV RDW Plt Count Lymph % (Auto) Christian % (Auto) Christian # Eos # Seg Neutrophils % Seg Neuts % (Manual) Lymphocytes % (Manual) Monocytes % (Manual) Seg Neutrophils # Seg Neutrophils # Man Lymphocytes # (Manual) Monocytes # (Manual) Eosinophils # (Manual) APTT POC ABG pH POC ABG pCO2 Sodium Potassium 3.0 L D Chloride Carbon Dioxide BUN 27 H Creatinine 1.5 H D Glucose 124 H POC Glucose 120 H Uric Acid Calcium 6.9 L Phosphorus Magnesium Total Bilirubin Alkaline Phosphatase Ammonia Total Protein Albumin Urine WBC (Auto) 138.0 H Crossmatch 03/23/16 03/23/16 03/23/16 04:00 07:00 12:52 WBC 22.2 H RBC 3.59 L Hgb Hct MCV RDW 15.8 H Plt Count Lymph % (Auto) Christian % (Auto) Christian # Eos # Seg Neutrophils % Seg Neuts % (Manual) Lymphocytes % (Manual) Monocytes % (Manual) Seg Neutrophils # Seg Neutrophils # Man Lymphocytes # (Manual) Monocytes # (Manual) Eosinophils # (Manual) APTT POC ABG pH POC ABG pCO2 Sodium Potassium 3.1 L Chloride Carbon Dioxide BUN Creatinine Glucose 111 H POC Glucose 112 H Uric Acid Calcium 6.6 L Phosphorus Magnesium Total Bilirubin Alkaline Phosphatase Ammonia Total Protein Albumin Urine WBC (Auto) Crossmatch 03/23/16 03/23/16 03/24/16 17:21 23:53 06:08 WBC RBC Hgb Hct MCV RDW Plt Count Lymph % (Auto) Christian % (Auto) Christian # Eos # Seg Neutrophils % Seg Neuts % (Manual) Lymphocytes % (Manual) Monocytes % (Manual) Seg Neutrophils # Seg Neutrophils # Man Lymphocytes # (Manual) Monocytes # (Manual) Eosinophils # (Manual) APTT POC ABG pH POC ABG pCO2 Sodium Potassium Chloride Carbon Dioxide BUN Creatinine Glucose POC Glucose 120 H 110 H 127 H Uric Acid Calcium Phosphorus Magnesium Total Bilirubin Alkaline Phosphatase Ammonia Total Protein Albumin Urine WBC (Auto) Crossmatch 03/24/16 03/24/16 03/24/16 06:44 06:44 11:22 WBC 25.1 H RBC 3.22 L Hgb 9.8 L Hct 29.6 L MCV RDW 15.8 H Plt Count Lymph % (Auto) Christian % (Auto) Christian # Eos # Seg Neutrophils % Seg Neuts % (Manual) Lymphocytes % (Manual) Monocytes % (Manual) Seg Neutrophils # Seg Neutrophils # Man Lymphocytes # (Manual) Monocytes # (Manual) Eosinophils # (Manual) APTT POC ABG pH POC ABG pCO2 Sodium Potassium Chloride Carbon Dioxide BUN Creatinine 0.5 L Glucose 123 H POC Glucose 107 H Uric Acid Calcium 6.4 L Phosphorus Magnesium Total Bilirubin Alkaline Phosphatase Ammonia Total Protein Albumin Urine WBC (Auto) Crossmatch 03/24/16 03/24/16 03/25/16 16:17 23:44 04:50 WBC 25.2 H RBC 3.34 L Hgb 10.0 L Hct MCV RDW 16.1 H Plt Count Lymph % (Auto) Christian % (Auto) Christian # Eos # Seg Neutrophils % Seg Neuts % (Manual) Lymphocytes % (Manual) Monocytes % (Manual) Seg Neutrophils # Seg Neutrophils # Man Lymphocytes # (Manual) Monocytes # (Manual) Eosinophils # (Manual) APTT POC ABG pH POC ABG pCO2 Sodium Potassium Chloride Carbon Dioxide BUN Creatinine Glucose POC Glucose 135 H 156 H Uric Acid Calcium Phosphorus Magnesium Total Bilirubin Alkaline Phosphatase Ammonia Total Protein Albumin Urine WBC (Auto) Crossmatch 03/25/16 03/25/16 03/25/16 04:50 06:14 12:24 WBC RBC Hgb Hct MCV RDW Plt Count Lymph % (Auto) Christian % (Auto) Christian # Eos # Seg Neutrophils % Seg Neuts % (Manual) Lymphocytes % (Manual) Monocytes % (Manual) Seg Neutrophils # Seg Neutrophils # Man Lymphocytes # (Manual) Monocytes # (Manual) Eosinophils # (Manual) APTT POC ABG pH POC ABG pCO2 Sodium Potassium Chloride Carbon Dioxide BUN Creatinine 0.4 L Glucose POC Glucose 106 H 106 H Uric Acid Calcium 6.3 L Phosphorus Magnesium Total Bilirubin Alkaline Phosphatase Ammonia Total Protein Albumin Urine WBC (Auto) Crossmatch 03/26/16 03/26/16 03/26/16 01:25 04:00 06:12 WBC 21.6 H RBC 3.22 L Hgb 9.7 L Hct 29.7 L MCV RDW 15.9 H Plt Count Lymph % (Auto) Christian % (Auto) Christian # Eos # Seg Neutrophils % Seg Neuts % (Manual) 93.0 H Lymphocytes % (Manual) 2.0 L Monocytes % (Manual) Seg Neutrophils # Seg Neutrophils # Man 20.1 H Lymphocytes # (Manual) 0.4 L Monocytes # (Manual) 0.9 H Eosinophils # (Manual) APTT POC ABG pH POC ABG pCO2 Sodium Potassium Chloride Carbon Dioxide BUN Creatinine 0.4 L Glucose 116 H POC Glucose 117 H Uric Acid Calcium 6.5 L Phosphorus Magnesium Total Bilirubin 1.3 H Alkaline Phosphatase 155 H Ammonia Total Protein Albumin 1.5 L Urine WBC (Auto) Crossmatch 03/26/16 03/26/16 03/26/16 06:42 11:18 16:21 WBC RBC Hgb Hct MCV RDW Plt Count Lymph % (Auto) Christian % (Auto) Christian # Eos # Seg Neutrophils % Seg Neuts % (Manual) Lymphocytes % (Manual) Monocytes % (Manual) Seg Neutrophils # Seg Neutrophils # Man Lymphocytes # (Manual) Monocytes # (Manual) Eosinophils # (Manual) APTT POC ABG pH POC ABG pCO2 Sodium Potassium Chloride Carbon Dioxide BUN Creatinine Glucose POC Glucose 120 H 109 H 112 H Uric Acid Calcium Phosphorus Magnesium Total Bilirubin Alkaline Phosphatase Ammonia Total Protein Albumin Urine WBC (Auto) Crossmatch 03/27/16 03/27/16 03/27/16 00:27 06:25 07:19 WBC 21.4 H RBC 3.11 L Hgb 9.4 L Hct 29.2 L MCV RDW 16.3 H Plt Count Lymph % (Auto) Christian % (Auto) Christian # Eos # Seg Neutrophils % Seg Neuts % (Manual) 83.0 H Lymphocytes % (Manual) 7.5 L Monocytes % (Manual) 9.0 H Seg Neutrophils # Seg Neutrophils # Man 17.8 H Lymphocytes # (Manual) Monocytes # (Manual) 1.9 H Eosinophils # (Manual) APTT POC ABG pH POC ABG pCO2 Sodium Potassium Chloride Carbon Dioxide BUN Creatinine Glucose POC Glucose 124 H 116 H Uric Acid Calcium Phosphorus Magnesium Total Bilirubin Alkaline Phosphatase Ammonia Total Protein Albumin Urine WBC (Auto) Crossmatch 03/27/16 03/27/16 07:19 11:12 WBC RBC Hgb Hct MCV RDW Plt Count Lymph % (Auto) Christian % (Auto) Christian # Eos # Seg Neutrophils % Seg Neuts % (Manual) Lymphocytes % (Manual) Monocytes % (Manual) Seg Neutrophils # Seg Neutrophils # Man Lymphocytes # (Manual) Monocytes # (Manual) Eosinophils # (Manual) APTT POC ABG pH POC ABG pCO2 Sodium Potassium Chloride Carbon Dioxide BUN Creatinine 0.4 L Glucose 111 H POC Glucose 109 H Uric Acid Calcium 6.8 L Phosphorus Magnesium Total Bilirubin Alkaline Phosphatase 216 H Ammonia Total Protein Albumin 1.7 L Urine WBC (Auto) Crossmatch Chest x-ray: report reviewed, image reviewed
[2016-03-28] MEDS: HEPARIN SUB-Q SCH ×4 (00:37→22:39)
[2016-03-28] MEDS: NOVOLOG SUB-Q SCH ×4 (00:41→17:03)
[2016-03-28] MEDS: PULMICORT IH SCH ×2 (07:46→20:08)
[2016-03-28] MEDS: BROVANA NEBU IH SCH ×2 (07:46→20:08)
--- NOTE | 2016-03-28 09:41 | Hem/Onc Progress Note ---
Assessment and Plan - Patient Problems (1) Leukocytosis Current Visit: Yes Status: Acute Plan to address problem: Work up in progress. Suspect reactive. Subjective Interval history: Awake but confused. No complains. Ox1 Objective - Constitutional Vitals: Last Vital Signs Temp 98.7 F 03/28/16 08:00 Pulse 82 03/28/16 08:03 Resp 16 03/28/16 08:03 BP 126/72 03/28/16 08:00 Pulse Ox 100 03/28/16 08:00 Pain Intensity (0-10): denies any pain - Respiratory Respiratory: bilateral: CTA - Cardiovascular Heart Sounds: Present: S1 & S2 Extremities: No edema - Labs Lab Results: Laboratory Results - last 24 hr 03/27/16 03/27/16 03/27/16 07:19 11:12 15:47 Add Manual Diff Complete Total Counted 200 Seg Neuts % (Manual) 83.0 H Band Neutrophils % 0 Lymphocytes % (Manual) 7.5 L Reactive Lymphs % (Man) 0 Monocytes % (Manual) 9.0 H Eosinophils % (Manual) 0.5 Basophils % (Manual) 0 Metamyelocytes % 0 Myelocytes % 0 Promyelocytes % 0 Blast Cells % 0 Nucleated RBC % Not Reportable Seg Neutrophils # Man 17.8 H Band Neutrophils # 0.0 Lymphocytes # (Manual) 1.6 Abs React Lymphs (Man) 0.0 Monocytes # (Manual) 1.9 H Eosinophils # (Manual) 0.1 Basophils # (Manual) 0.0 Metamyelocytes # 0.0 Myelocytes # 0.0 Promyelocytes # 0.0 Blast Cells # 0.0 WBC Morphology Not Reportable Hypersegmented Neuts Not Reportable Hyposegmented Neuts Not Reportable Hypogranular Neuts Not Reportable Smudge Cells Not Reportable Toxic Granulation Not Reportable Toxic Vacuolation Not Reportable Dohle Bodies Not Reportable Pelger-Huet Anomaly Not Reportable Betty Rods Not Reportable Platelet Estimate Consistent w auto Clumped Platelets Not Reportable Plt Clumps, EDTA Not Reportable Large Platelets Not Reportable Giant Platelets Not Reportable Platelet Satelliting Not Reportable Plt Morphology Comment Not Reportable RBC Morphology Not Reportable Dimorphic RBCs Not Reportable Polychromasia Not Reportable Hypochromasia Not Reportable Poikilocytosis Not Reportable Anisocytosis 1+ Microcytosis Not Reportable Macrocytosis Not Reportable Spherocytes Not Reportable Pappenheimer Bodies Not Reportable Sickle Cells Not Reportable Target Cells 1+ Tear Drop Cells Not Reportable Ovalocytes Not Reportable Helmet Cells Not Reportable [place] Bodies Not Reportable [place] Rings Not Reportable Tim Cells Not Reportable Bite Cells Not Reportable Crenated Cell Not Reportable Elliptocytes Not Reportable Acanthocytes (Spur) Not Reportable Rouleaux Not Reportable Hemoglobin C Crystals Not Reportable Schistocytes Not Reportable Malaria parasites Not Reportable [place] Bodies Not Reportable Hem Pathologist Commnt No POC Glucose 109 H 94 03/27/16 03/28/16 23:30 06:06 Add Manual Diff Total Counted Seg Neuts % (Manual) Band Neutrophils % Lymphocytes % (Manual) Reactive Lymphs % (Man) Monocytes % (Manual) Eosinophils % (Manual) Basophils % (Manual) Metamyelocytes % Myelocytes % Promyelocytes % Blast Cells % Nucleated RBC % Seg Neutrophils # Man Band Neutrophils # Lymphocytes # (Manual) Abs React Lymphs (Man) Monocytes # (Manual) Eosinophils # (Manual) Basophils # (Manual) Metamyelocytes # Myelocytes # Promyelocytes # Blast Cells # WBC Morphology Hypersegmented Neuts Hyposegmented Neuts Hypogranular Neuts Smudge Cells Toxic Granulation Toxic Vacuolation Dohle Bodies Pelger-Huet Anomaly Betty Rods Platelet Estimate Clumped Platelets Plt Clumps, EDTA Large Platelets Giant Platelets Platelet Satelliting Plt Morphology Comment RBC Morphology Dimorphic RBCs Polychromasia Hypochromasia Poikilocytosis Anisocytosis Microcytosis Macrocytosis Spherocytes Pappenheimer Bodies Sickle Cells Target Cells Tear Drop Cells Ovalocytes Helmet Cells [place] Bodies Stowell Rings Tim Cells Bite Cells Crenated Cell Elliptocytes Acanthocytes (Spur) Rouleaux Hemoglobin C Crystals Schistocytes Malaria parasites Matthew Bodies Hem Pathologist Commnt POC Glucose 107 H 130 H
[2016-03-28] MEDS: VITAMIN B-1 FEEDTUBE SCH (11:39)
[2016-03-28] MEDS: FOLVITE PO SCH (11:39)
[2016-03-28] MEDS: TENORMIN PO SCH (11:40)
--- NOTE | 2016-03-28 18:55 | Progress Note ---
Assessment and Plan Imp: 1. Metabolic encephalopathy, ongoing and of unclear etiology 2. Pleural effusions/ascites; r/o CMP/CHF 3. MICAH, better 4. Acute respiratory failure, hypoxia, better 5. Oropharyngeal dysphagia 2/2 #1, s/p PEG Rec: 1. Avoid sedating meds 2. Check Echo re: #2 above 3. TFs per PEG 4. Agree w/ neurology f/u 5. DVT PPx No family present Subjective Date of service: 03/28/16 Principal diagnosis: AMS/dysphagia/malnutrition Interval history: No events. Confused/awake, oriented x 1. Cannot give any coherent history. On NC. Active Medications Acetaminophen (Tylenol) 650 mg PO Q4H PRN PRN Reason: Pain MILD(1-3)/Fever >100.5/GILL Last Admin: 03/27/16 06:13 Dose: 650 mg Albuterol (Proventil) 2.5 mg IH Q6HRT PRN PRN Reason: Shortness Of Breath Last Admin: 03/18/16 11:17 Dose: 2.5 mg Lipase/Protease/Amylase (Pancreaze Dr 10,500 Unit) 1 each FEEDTUBE PRN PRN PRN Reason: For Clogged Feeding Tube Arformoterol Tartrate (Brovana Nebu) 15 mcg IH Q12HRT [facility] Last Admin: 03/28/16 07:46 Dose: 15 mcg Atenolol (Tenormin) 50 mg PO QDAY [facility] Last Admin: 03/28/16 11:40 Dose: 50 mg Budesonide (Pulmicort) 0.5 mg IH Q12HRT [facility] Last Admin: 03/28/16 07:46 Dose: 0.5 mg Clonidine HCl (Catapres) 0.1 mg PO Q4H PRN PRN Reason: For SBP>170 or DBP>110 Last Admin: 03/27/16 12:28 Dose: 0.1 mg Dextrose (D50w (25gm)) 50 ml IV PRN PRN PRN Reason: Hypoglycemia Last Admin: 03/19/16 07:20 Dose: 50 ml Folic Acid (Folvite) 1 mg PO QDAY [facility] Last Admin: 03/28/16 11:39 Dose: 1 mg Heparin Sodium (Porcine) (Heparin) 5,000 unit SUB-Q Q8HR [facility] Last Admin: 03/28/16 16:33 Dose: 5,000 unit Hydralazine HCl (Apresoline) 20 mg IV Q6H PRN PRN Reason: Blood Pressure Last Admin: 03/15/16 22:33 Dose: 20 mg Insulin Aspart (Novolog) 0 units SUB-Q Q6HR PATTY PRN Reason: Protocol Last Admin: 03/28/16 17:03 Dose: Not Given Simple Syrup (Simple Syrup) 15 ml FEEDTUBE PRN PRN PRN Reason: Hypoglycemia Simple Syrup (Simple Syrup) 30 ml FEEDTUBE PRN PRN PRN Reason: Hypoglycemia Sodium Bicarbonate (Sodium Bicarbonate) 325 mg FEEDTUBE PRN PRN PRN Reason: For Clogged Feeding Tube Thiamine HCl (Vitamin B-1) 100 mg FEEDTUBE QDAY [facility] Last Admin: 03/28/16 11:39 Dose: 100 mg Objective Vital Signs - 12hr 03/28/16 03/28/16 03/28/16 07:48 08:00 08:03 Temperature 98.7 F Pulse Rate Pulse Rate [ 84 82 Anterior Bilateral Throughout] Pulse Rate [ 82 Left Radial] Pulse Rate [ Right Radial] Respiratory 18 Rate Respiratory 16 16 Rate [Anterior Bilateral Throughout] Blood Pressure Blood Pressure 126/72 [Left Arm] O2 Sat by Pulse 100 Oximetry 03/28/16 03/28/16 03/28/16 09:00 11:40 15:22 Temperature 98.4 F Pulse Rate 82 Pulse Rate [ Anterior Bilateral Throughout] Pulse Rate [ 104 H Left Radial] Pulse Rate [ 86 Right Radial] Respiratory 18 18 Rate Respiratory Rate [Anterior Bilateral Throughout] Blood Pressure 126/72 170/100 Blood Pressure [Left Arm] O2 Sat by Pulse 100 100 Oximetry 03/28/16 15:24 Temperature 98.4 F Pulse Rate Pulse Rate [ Anterior Bilateral Throughout] Pulse Rate [ 104 H Left Radial] Pulse Rate [ Right Radial] Respiratory 18 Rate Respiratory Rate [Anterior Bilateral Throughout] Blood Pressure Blood Pressure 170/100 [Left Arm] O2 Sat by Pulse 100 Oximetry Constitutional: alert, other (confused) Eyes: non-icteric ENT: oropharynx dry Neck: supple Effort: normal Ascultation: Bilateral: clear, diminished breath sounds Cardiovascular: regular rate and rhythm (no mrg) Gastrointestinal: normoactive bowel sounds, soft, non-tender, non-distended Integumentary: normal Extremities: no cyanosis, no edema, pink and warm Neurologic: pupils equal and round, unable to assess (confused, grossly nonfocal ) Psychiatric: other (unable to assess) CBC and BMP: 03/27/16 07:19 03/27/16 07:19 ABG, PT/INR, D-dimer: ABG POC ABG pH 7.365 (7.35-7.45) 03/20/16 21:00 POC ABG pCO2 25.9 (35-45) L 03/20/16 21:00 POC ABG pO2 90 (80-105) 03/20/16 21:00 POC ABG HCO3 14.8 03/20/16 21:00 POC ABG Total CO2 16 03/20/16 21:00 POC ABG O2 Sat 97 03/20/16 21:00 PT/INR, D-dimer PT 13.0 Sec. (12.2-14.9) 03/12/16 09:50 INR 0.99 (0.87-1.13) 03/12/16 09:50 Abnormal lab findings: Abnormal Labs 03/03/16 03/03/16 03/04/16 15:47 15:47 05:14 WBC 19.2 H 23.1 H RBC 3.64 L Hgb Hct MCV RDW 16.5 H 16.6 H Plt Count 449 H Lymph % (Auto) Dickson % (Auto) Dickson # Eos # Seg Neutrophils % Seg Neuts % (Manual) Lymphocytes % (Manual) Monocytes % (Manual) Seg Neutrophils # Seg Neutrophils # Man Lymphocytes # (Manual) Monocytes # (Manual) Eosinophils # (Manual) APTT POC ABG pH POC ABG pCO2 Sodium Potassium 2.8 L* Chloride 96.5 L Carbon Dioxide 20 L BUN Creatinine 0.6 L Glucose 139 H POC Glucose Uric Acid Calcium Phosphorus Magnesium Total Bilirubin Alkaline Phosphatase Ammonia Total Protein Albumin Urine WBC (Auto) Crossmatch 03/04/16 03/04/16 03/04/16 05:14 09:01 19:38 WBC RBC Hgb Hct MCV RDW Plt Count Lymph % (Auto) Dickson % (Auto) Dickson # Eos # Seg Neutrophils % Seg Neuts % (Manual) Lymphocytes % (Manual) Monocytes % (Manual) Seg Neutrophils # Seg Neutrophils # Man Lymphocytes # (Manual) Monocytes # (Manual) Eosinophils # (Manual) APTT POC ABG pH POC ABG pCO2 Sodium 135 L Potassium 3.3 L Chloride 95.7 L Carbon Dioxide 19 L BUN Creatinine Glucose 130 H POC Glucose Uric Acid Calcium 8.0 L Phosphorus 1.4 L Magnesium 1.0 L Total Bilirubin 1.9 H Alkaline Phosphatase Ammonia 95.0 H Total Protein Albumin 3.0 L Urine WBC (Auto) Crossmatch 03/05/16 03/05/16 03/05/16 07:39 07:39 17:59 WBC 20.3 H RBC 3.50 L Hgb Hct MCV 98 H RDW 16.1 H Plt Count Lymph % (Auto) Dickson % (Auto) Dickson # Eos # Seg Neutrophils % Seg Neuts % (Manual) Lymphocytes % (Manual) Monocytes % (Manual) Seg Neutrophils # Seg Neutrophils # Man Lymphocytes # (Manual) Monocytes # (Manual) Eosinophils # (Manual) APTT POC ABG pH POC ABG pCO2 Sodium Potassium 2.7 L* 3.2 L Chloride Carbon Dioxide 19 L 18 L BUN Creatinine 1.4 H D 1.4 H Glucose 131 H POC Glucose Uric Acid Calcium 7.6 L 7.3 L Phosphorus 6.7 H D Magnesium 2.6 H Total Bilirubin 1.4 H Alkaline Phosphatase Ammonia Total Protein 5.9 L Albumin 2.4 L Urine WBC (Auto) Crossmatch 03/06/16 03/06/16 03/06/16 09:54 09:54 18:07 WBC 22.2 H RBC 3.19 L Hgb 9.9 L Hct MCV 98 H RDW 16.8 H Plt Count Lymph % (Auto) Dickson % (Auto) Dickson # Eos # Seg Neutrophils % Seg Neuts % (Manual) Lymphocytes % (Manual) Monocytes % (Manual) Seg Neutrophils # Seg Neutrophils # Man Lymphocytes # (Manual) Monocytes # (Manual) Eosinophils # (Manual) APTT POC ABG pH POC ABG pCO2 Sodium 150 H D Potassium 2.8 L* 2.8 L* Chloride 113.5 H Carbon Dioxide 16 L 16 L BUN Creatinine Glucose 137 H 106 H POC Glucose Uric Acid Calcium 7.4 L 7.7 L Phosphorus Magnesium Total Bilirubin Alkaline Phosphatase Ammonia Total Protein Albumin Urine WBC (Auto) Crossmatch 03/07/16 03/07/16 03/07/16 04:53 04:53 05:43 WBC 19.7 H RBC 3.20 L Hgb 9.9 L Hct MCV RDW 16.6 H Plt Count Lymph % (Auto) Dickson % (Auto) Dickson # Eos # Seg Neutrophils % Seg Neuts % (Manual) Lymphocytes % (Manual) Monocytes % (Manual) Seg Neutrophils # Seg Neutrophils # Man Lymphocytes # (Manual) Monocytes # (Manual) Eosinophils # (Manual) APTT POC ABG pH POC ABG pCO2 Sodium Potassium 2.9 L* Chloride 114.1 H Carbon Dioxide 19 L BUN Creatinine Glucose 140 H POC Glucose 143 H Uric Acid Calcium 7.8 L Phosphorus Magnesium Total Bilirubin Alkaline Phosphatase Ammonia Total Protein Albumin Urine WBC (Auto) Crossmatch 03/07/16 03/08/16 03/08/16 22:20 05:09 05:09 WBC 32.2 H RBC 3.18 L Hgb 10.0 L Hct MCV RDW 16.8 H Plt Count Lymph % (Auto) Dickson % (Auto) Dickson # Eos # Seg Neutrophils % Seg Neuts % (Manual) Lymphocytes % (Manual) Monocytes % (Manual) Seg Neutrophils # Seg Neutrophils # Man Lymphocytes # (Manual) Monocytes # (Manual) Eosinophils # (Manual) APTT POC ABG pH POC ABG pCO2 Sodium 155 H D Potassium 6.3 H* D 6.1 H* Chloride Carbon Dioxide 18 L BUN Creatinine 1.6 H D Glucose 213 H POC Glucose Uric Acid Calcium Phosphorus Magnesium Total Bilirubin Alkaline Phosphatase Ammonia Total Protein Albumin Urine WBC (Auto) Crossmatch 03/08/16 03/08/16 03/08/16 09:11 16:28 17:27 WBC RBC Hgb Hct MCV RDW Plt Count Lymph % (Auto) Dickson % (Auto) Dickson # Eos # Seg Neutrophils % Seg Neuts % (Manual) Lymphocytes % (Manual) Monocytes % (Manual) Seg Neutrophils # Seg Neutrophils # Man Lymphocytes # (Manual) Monocytes # (Manual) Eosinophils # (Manual) APTT POC ABG pH POC ABG pCO2 Sodium 156 H Potassium Chloride 126.2 H Carbon Dioxide 19 L BUN Creatinine 1.8 H Glucose 175 H POC Glucose 204 H 130 H Uric Acid Calcium Phosphorus Magnesium Total Bilirubin Alkaline Phosphatase Ammonia Total Protein Albumin Urine WBC (Auto) Crossmatch 03/08/16 03/09/16 03/09/16 22:06 05:47 08:00 WBC 29.9 H RBC 2.93 L Hgb 9.0 L Hct 28.4 L MCV RDW 17.4 H Plt Count Lymph % (Auto) Dickson % (Auto) Dickson # Eos # Seg Neutrophils % Seg Neuts % (Manual) Lymphocytes % (Manual) Monocytes % (Manual) Seg Neutrophils # Seg Neutrophils # Man Lymphocytes # (Manual) Monocytes # (Manual) Eosinophils # (Manual) APTT POC ABG pH POC ABG pCO2 Sodium Potassium Chloride Carbon Dioxide BUN Creatinine Glucose POC Glucose 192 H 206 H Uric Acid Calcium Phosphorus Magnesium Total Bilirubin Alkaline Phosphatase Ammonia Total Protein Albumin Urine WBC (Auto) Crossmatch 03/09/16 03/09/16 03/09/16 08:00 11:33 16:03 WBC RBC Hgb Hct MCV RDW Plt Count Lymph % (Auto) Dickson % (Auto) Dickson # Eos # Seg Neutrophils % Seg Neuts % (Manual) Lymphocytes % (Manual) Monocytes % (Manual) Seg Neutrophils # Seg Neutrophils # Man Lymphocytes # (Manual) Monocytes # (Manual) Eosinophils # (Manual) APTT POC ABG pH POC ABG pCO2 Sodium 154 H Potassium Chloride 123.0 H Carbon Dioxide 21 L BUN 18 H Creatinine 1.9 H Glucose 179 H POC Glucose 152 H 130 H Uric Acid Calcium 8.2 L Phosphorus Magnesium Total Bilirubin Alkaline Phosphatase Ammonia Total Protein Albumin Urine WBC (Auto) Crossmatch 03/10/16 03/10/16 03/10/16 06:16 11:53 17:22 WBC RBC Hgb Hct MCV RDW Plt Count Lymph % (Auto) Dickson % (Auto) Dickson # Eos # Seg Neutrophils % Seg Neuts % (Manual) Lymphocytes % (Manual) Monocytes % (Manual) Seg Neutrophils # Seg Neutrophils # Man Lymphocytes # (Manual) Monocytes # (Manual) Eosinophils # (Manual) APTT POC ABG pH POC ABG pCO2 Sodium Potassium Chloride Carbon Dioxide BUN Creatinine Glucose POC Glucose 170 H 141 H 159 H Uric Acid Calcium Phosphorus Magnesium Total Bilirubin Alkaline Phosphatase Ammonia Total Protein Albumin Urine WBC (Auto) Crossmatch 03/10/16 03/10/16 03/10/16 Unknown Unknown Unknown WBC 22.8 H RBC 2.70 L Hgb 8.7 L Hct 26.4 L MCV 98 H RDW 17.1 H Plt Count Lymph % (Auto) Dickson % (Auto) Dickson # Eos # Seg Neutrophils % Seg Neuts % (Manual) 78.0 H Lymphocytes % (Manual) 12.0 L Monocytes % (Manual) Seg Neutrophils # Seg Neutrophils # Man 17.8 H Lymphocytes # (Manual) Monocytes # (Manual) 1.1 H Eosinophils # (Manual) 0.9 H APTT POC ABG pH POC ABG pCO2 Sodium 147 H Potassium Chloride 115.0 H Carbon Dioxide 20 L BUN 22 H Creatinine 1.6 H Glucose 142 H POC Glucose Uric Acid Calcium 7.7 L Phosphorus Magnesium 1.5 L Total Bilirubin Alkaline Phosphatase Ammonia Total Protein Albumin Urine WBC (Auto) Crossmatch 03/11/16 03/11/16 03/11/16 00:11 00:50 06:15 WBC 24.3 H RBC 2.93 L Hgb 9.0 L Hct 28.1 L MCV RDW 17.4 H Plt Count Lymph % (Auto) Dickson % (Auto) Dickson # Eos # Seg Neutrophils % Seg Neuts % (Manual) 74.0 H Lymphocytes % (Manual) 10.0 L Monocytes % (Manual) 8.0 H Seg Neutrophils # Seg Neutrophils # Man 18.0 H Lymphocytes # (Manual) Monocytes # (Manual) 1.9 H Eosinophils # (Manual) 1.0 H APTT POC ABG pH POC ABG pCO2 Sodium Potassium Chloride Carbon Dioxide BUN Creatinine Glucose POC Glucose 143 H 136 H Uric Acid Calcium Phosphorus Magnesium Total Bilirubin Alkaline Phosphatase Ammonia Total Protein Albumin Urine WBC (Auto) Crossmatch 03/11/16 03/12/16 03/12/16 07:24 09:50 12:10 WBC RBC Hgb Hct MCV RDW Plt Count Lymph % (Auto) Dickson % (Auto) Dickson # Eos # Seg Neutrophils % Seg Neuts % (Manual) Lymphocytes % (Manual) Monocytes % (Manual) Seg Neutrophils # Seg Neutrophils # Man Lymphocytes # (Manual) Monocytes # (Manual) Eosinophils # (Manual) APTT 38.8 H POC ABG pH POC ABG pCO2 Sodium 135 L D Potassium Chloride Carbon Dioxide BUN 27 H Creatinine 1.8 H Glucose 136 H POC Glucose 111 H Uric Acid Calcium 7.5 L Phosphorus Magnesium 1.4 L Total Bilirubin Alkaline Phosphatase Ammonia Total Protein Albumin Urine WBC (Auto) Crossmatch 03/12/16 03/12/16 03/13/16 16:39 21:45 05:00 WBC 19.2 H RBC 2.68 L Hgb 8.5 L Hct 25.7 L MCV RDW 17.4 H Plt Count Lymph % (Auto) 9.3 L Dickson % (Auto) 8.7 H Dickson # 1.7 H Eos # 0.5 H Seg Neutrophils % 78.6 H Seg Neuts % (Manual) Lymphocytes % (Manual) Monocytes % (Manual) Seg Neutrophils # 15.1 H Seg Neutrophils # Man Lymphocytes # (Manual) Monocytes # (Manual) Eosinophils # (Manual) APTT POC ABG pH POC ABG pCO2 Sodium Potassium Chloride Carbon Dioxide BUN Creatinine Glucose POC Glucose 112 H 124 H Uric Acid Calcium Phosphorus Magnesium Total Bilirubin Alkaline Phosphatase Ammonia Total Protein Albumin Urine WBC (Auto) Crossmatch 03/13/16 03/13/16 03/14/16 05:00 16:19 06:21 WBC RBC Hgb Hct MCV RDW Plt Count Lymph % (Auto) Dickson % (Auto) Dickson # Eos # Seg Neutrophils % Seg Neuts % (Manual) Lymphocytes % (Manual) Monocytes % (Manual) Seg Neutrophils # Seg Neutrophils # Man Lymphocytes # (Manual) Monocytes # (Manual) Eosinophils # (Manual) APTT POC ABG pH POC ABG pCO2 Sodium Potassium Chloride Carbon Dioxide 20 L BUN 31 H Creatinine 2.1 H Glucose POC Glucose 61 L 125 H Uric Acid Calcium 7.8 L Phosphorus Magnesium 3.1 H Total Bilirubin Alkaline Phosphatase Ammonia Total Protein Albumin Urine WBC (Auto) Crossmatch 03/14/16 03/14/16 03/15/16 13:48 18:34 00:02 WBC RBC Hgb Hct MCV RDW Plt Count Lymph % (Auto) Dickson % (Auto) Dickson # Eos # Seg Neutrophils % Seg Neuts % (Manual) Lymphocytes % (Manual) Monocytes % (Manual) Seg Neutrophils # Seg Neutrophils # Man Lymphocytes # (Manual) Monocytes # (Manual) Eosinophils # (Manual) APTT POC ABG pH POC ABG pCO2 Sodium Potassium Chloride Carbon Dioxide BUN Creatinine Glucose POC Glucose 107 H 124 H 138 H Uric Acid Calcium Phosphorus Magnesium Total Bilirubin Alkaline Phosphatase Ammonia Total Protein Albumin Urine WBC (Auto) Crossmatch 03/15/16 03/15/16 03/15/16 06:40 06:40 07:23 WBC 13.5 H RBC 2.32 L Hgb 7.5 L Hct 22.3 L MCV RDW 17.5 H Plt Count Lymph % (Auto) 12.8 L Dickson % (Auto) 8.2 H Dickson # 1.1 H Eos # Seg Neutrophils % 75.5 H Seg Neuts % (Manual) Lymphocytes % (Manual) Monocytes % (Manual) Seg Neutrophils # 10.2 H Seg Neutrophils # Man Lymphocytes # (Manual) Monocytes # (Manual) Eosinophils # (Manual) APTT POC ABG pH POC ABG pCO2 Sodium Potassium Chloride 110.8 H Carbon Dioxide 16 L BUN 28 H Creatinine 2.4 H Glucose POC Glucose 112 H Uric Acid Calcium 7.0 L Phosphorus Magnesium Total Bilirubin Alkaline Phosphatase Ammonia Total Protein Albumin Urine WBC (Auto) Crossmatch 03/15/16 03/15/16 03/15/16 11:46 16:32 20:52 WBC RBC Hgb Hct MCV RDW Plt Count Lymph % (Auto) Dickson % (Auto) Dickson # Eos # Seg Neutrophils % Seg Neuts % (Manual) Lymphocytes % (Manual) Monocytes % (Manual) Seg Neutrophils # Seg Neutrophils # Man Lymphocytes # (Manual) Monocytes # (Manual) Eosinophils # (Manual) APTT POC ABG pH POC ABG pCO2 Sodium Potassium Chloride Carbon Dioxide BUN Creatinine Glucose POC Glucose 138 H 127 H 118 H Uric Acid Calcium Phosphorus Magnesium Total Bilirubin Alkaline Phosphatase Ammonia Total Protein Albumin Urine WBC (Auto) Crossmatch 03/16/16 03/16/16 03/16/16 06:01 06:01 06:24 WBC 27.8 H RBC 2.41 L Hgb 7.4 L Hct 23.2 L MCV RDW 18.2 H Plt Count Lymph % (Auto) Dickson % (Auto) Dickson # Eos # Seg Neutrophils % Seg Neuts % (Manual) 91.5 H Lymphocytes % (Manual) 2.5 L Monocytes % (Manual) Seg Neutrophils # Seg Neutrophils # Man 25.4 H Lymphocytes # (Manual) 0.7 L Monocytes # (Manual) Eosinophils # (Manual) APTT POC ABG pH POC ABG pCO2 Sodium Potassium Chloride 113.0 H Carbon Dioxide 15 L BUN 30 H Creatinine 2.6 H Glucose 130 H POC Glucose 159 H Uric Acid Calcium 6.8 L Phosphorus Magnesium Total Bilirubin Alkaline Phosphatase Ammonia Total Protein Albumin Urine WBC (Auto) Crossmatch 03/16/16 03/16/16 03/16/16 11:34 16:37 23:46 WBC RBC Hgb Hct MCV RDW Plt Count Lymph % (Auto) Dickson % (Auto) Dickson # Eos # Seg Neutrophils % Seg Neuts % (Manual) Lymphocytes % (Manual) Monocytes % (Manual) Seg Neutrophils # Seg Neutrophils # Man Lymphocytes # (Manual) Monocytes # (Manual) Eosinophils # (Manual) APTT POC ABG pH POC ABG pCO2 Sodium Potassium Chloride Carbon Dioxide BUN Creatinine Glucose POC Glucose 164 H 109 H 114 H Uric Acid Calcium Phosphorus Magnesium Total Bilirubin Alkaline Phosphatase Ammonia Total Protein Albumin Urine WBC (Auto) Crossmatch 03/17/16 03/17/16 03/17/16 11:33 22:11 23:50 WBC RBC Hgb Hct MCV RDW Plt Count Lymph % (Auto) Dickson % (Auto) Dickson # Eos # Seg Neutrophils % Seg Neuts % (Manual) Lymphocytes % (Manual) Monocytes % (Manual) Seg Neutrophils # Seg Neutrophils # Man Lymphocytes # (Manual) Monocytes # (Manual) Eosinophils # (Manual) APTT POC ABG pH 7.319 L POC ABG pCO2 28.6 L Sodium Potassium Chloride 111.6 H Carbon Dioxide 16 L BUN 34 H Creatinine 2.7 H Glucose 115 H POC Glucose 117 H Uric Acid 8.4 H Calcium 7.4 L Phosphorus Magnesium Total Bilirubin Alkaline Phosphatase Ammonia Total Protein Albumin Urine WBC (Auto) Crossmatch 03/17/16 03/18/16 03/19/16 23:50 11:11 05:20 WBC 18.2 H RBC 2.11 L Hgb 6.7 L Hct 20.1 L MCV RDW 17.5 H Plt Count Lymph % (Auto) Dickson % (Auto) Dickson # Eos # Seg Neutrophils % Seg Neuts % (Manual) Lymphocytes % (Manual) Monocytes % (Manual) Seg Neutrophils # Seg Neutrophils # Man Lymphocytes # (Manual) Monocytes # (Manual) Eosinophils # (Manual) APTT POC ABG pH 7.320 L POC ABG pCO2 29.9 L Sodium Potassium Chloride Carbon Dioxide BUN Creatinine Glucose POC Glucose 124 H Uric Acid Calcium Phosphorus Magnesium Total Bilirubin Alkaline Phosphatase Ammonia Total Protein Albumin Urine WBC (Auto) Crossmatch 03/19/16 03/19/16 03/19/16 05:20 06:11 09:30 WBC RBC Hgb Hct MCV RDW Plt Count Lymph % (Auto) Dickson % (Auto) Dickson # Eos # Seg Neutrophils % Seg Neuts % (Manual) Lymphocytes % (Manual) Monocytes % (Manual) Seg Neutrophils # Seg Neutrophils # Man Lymphocytes # (Manual) Monocytes # (Manual) Eosinophils # (Manual) APTT POC ABG pH POC ABG pCO2 Sodium Potassium Chloride 114.1 H Carbon Dioxide 16 L BUN 32 H Creatinine 2.2 H Glucose POC Glucose 63 L Uric Acid Calcium 7.7 L Phosphorus Magnesium Total Bilirubin Alkaline Phosphatase Ammonia Total Protein Albumin Urine WBC (Auto) Crossmatch See Detail 03/19/16 03/19/16 03/19/16 12:14 16:30 23:57 WBC RBC Hgb Hct MCV RDW Plt Count Lymph % (Auto) Dickson % (Auto) Dickson # Eos # Seg Neutrophils % Seg Neuts % (Manual) Lymphocytes % (Manual) Monocytes % (Manual) Seg Neutrophils # Seg Neutrophils # Man Lymphocytes # (Manual) Monocytes # (Manual) Eosinophils # (Manual) APTT POC ABG pH POC ABG pCO2 Sodium Potassium Chloride Carbon Dioxide BUN Creatinine Glucose POC Glucose 138 H 133 H 190 H Uric Acid Calcium Phosphorus Magnesium Total Bilirubin Alkaline Phosphatase Ammonia Total Protein Albumin Urine WBC (Auto) Crossmatch 03/20/16 03/20/16 03/20/16 06:38 11:52 15:36 WBC RBC Hgb Hct MCV RDW Plt Count Lymph % (Auto) Dickson % (Auto) Dickson # Eos # Seg Neutrophils % Seg Neuts % (Manual) Lymphocytes % (Manual) Monocytes % (Manual) Seg Neutrophils # Seg Neutrophils # Man Lymphocytes # (Manual) Monocytes # (Manual) Eosinophils # (Manual) APTT POC ABG pH POC ABG pCO2 Sodium Potassium Chloride Carbon Dioxide BUN Creatinine Glucose POC Glucose 163 H 138 H 151 H Uric Acid Calcium Phosphorus Magnesium Total Bilirubin Alkaline Phosphatase Ammonia Total Protein Albumin Urine WBC (Auto) Crossmatch 03/20/16 03/20/16 03/20/16 21:00 23:55 Unknown WBC 30.1 H RBC 3.23 L Hgb Hct 29.6 L D MCV RDW 16.2 H Plt Count Lymph % (Auto) Dickson % (Auto) Dickson # Eos # Seg Neutrophils % Seg Neuts % (Manual) Lymphocytes % (Manual) Monocytes % (Manual) Seg Neutrophils # Seg Neutrophils # Man Lymphocytes # (Manual) Monocytes # (Manual) Eosinophils # (Manual) APTT POC ABG pH POC ABG pCO2 25.9 L Sodium Potassium Chloride Carbon Dioxide BUN Creatinine Glucose POC Glucose 167 H Uric Acid Calcium Phosphorus Magnesium Total Bilirubin Alkaline Phosphatase Ammonia Total Protein Albumin Urine WBC (Auto) Crossmatch 03/20/16 03/21/16 03/21/16 Unknown 04:45 04:45 WBC 28.0 H RBC 3.37 L Hgb Hct MCV RDW 16.4 H Plt Count Lymph % (Auto) Dickson % (Auto) Dickson # Eos # Seg Neutrophils % Seg Neuts % (Manual) Lymphocytes % (Manual) Monocytes % (Manual) Seg Neutrophils # Seg Neutrophils # Man Lymphocytes # (Manual) Monocytes # (Manual) Eosinophils # (Manual) APTT POC ABG pH POC ABG pCO2 Sodium Potassium 5.1 H Chloride 110.4 H Carbon Dioxide 14 L BUN 34 H 37 H Creatinine 2.9 H 3.2 H Glucose 131 H 124 H POC Glucose Uric Acid Calcium 7.5 L 7.1 L Phosphorus 4.6 H Magnesium 1.6 L Total Bilirubin Alkaline Phosphatase Ammonia Total Protein Albumin Urine WBC (Auto) Crossmatch 03/21/16 03/21/16 03/21/16 05:52 11:23 17:48 WBC RBC Hgb Hct MCV RDW Plt Count Lymph % (Auto) Dickson % (Auto) Dickson # Eos # Seg Neutrophils % Seg Neuts % (Manual) Lymphocytes % (Manual) Monocytes % (Manual) Seg Neutrophils # Seg Neutrophils # Man Lymphocytes # (Manual) Monocytes # (Manual) Eosinophils # (Manual) APTT POC ABG pH POC ABG pCO2 Sodium Potassium Chloride Carbon Dioxide BUN Creatinine Glucose POC Glucose 136 H 144 H 149 H Uric Acid Calcium Phosphorus Magnesium Total Bilirubin Alkaline Phosphatase Ammonia Total Protein Albumin Urine WBC (Auto) Crossmatch 03/21/16 03/22/16 03/22/16 22:05 00:44 04:30 WBC 23.2 H RBC 3.38 L Hgb Hct MCV RDW 16.1 H Plt Count Lymph % (Auto) Dickson % (Auto) Dickson # Eos # Seg Neutrophils % Seg Neuts % (Manual) Lymphocytes % (Manual) Monocytes % (Manual) Seg Neutrophils # Seg Neutrophils # Man Lymphocytes # (Manual) Monocytes # (Manual) Eosinophils # (Manual) APTT POC ABG pH POC ABG pCO2 Sodium Potassium Chloride Carbon Dioxide BUN Creatinine Glucose POC Glucose 129 H 121 H Uric Acid Calcium Phosphorus Magnesium Total Bilirubin Alkaline Phosphatase Ammonia Total Protein Albumin Urine WBC (Auto) Crossmatch 03/22/16 03/22/16 03/22/16 04:30 06:17 17:47 WBC RBC Hgb Hct MCV RDW Plt Count Lymph % (Auto) Dickson % (Auto) Dickson # Eos # Seg Neutrophils % Seg Neuts % (Manual) Lymphocytes % (Manual) Monocytes % (Manual) Seg Neutrophils # Seg Neutrophils # Man Lymphocytes # (Manual) Monocytes # (Manual) Eosinophils # (Manual) APTT POC ABG pH POC ABG pCO2 Sodium Potassium 3.0 L D Chloride Carbon Dioxide BUN 27 H Creatinine 1.5 H D Glucose 124 H POC Glucose 120 H Uric Acid Calcium 6.9 L Phosphorus Magnesium Total Bilirubin Alkaline Phosphatase Ammonia Total Protein Albumin Urine WBC (Auto) 138.0 H Crossmatch 03/23/16 03/23/16 03/23/16 04:00 07:00 12:52 WBC 22.2 H RBC 3.59 L Hgb Hct MCV RDW 15.8 H Plt Count Lymph % (Auto) Dickson % (Auto) Dickson # Eos # Seg Neutrophils % Seg Neuts % (Manual) Lymphocytes % (Manual) Monocytes % (Manual) Seg Neutrophils # Seg Neutrophils # Man Lymphocytes # (Manual) Monocytes # (Manual) Eosinophils # (Manual) APTT POC ABG pH POC ABG pCO2 Sodium Potassium 3.1 L Chloride Carbon Dioxide BUN Creatinine Glucose 111 H POC Glucose 112 H Uric Acid Calcium 6.6 L Phosphorus Magnesium Total Bilirubin Alkaline Phosphatase Ammonia Total Protein Albumin Urine WBC (Auto) Crossmatch 03/23/16 03/23/16 03/24/16 17:21 23:53 06:08 WBC RBC Hgb Hct MCV RDW Plt Count Lymph % (Auto) Dickson % (Auto) Dickson # Eos # Seg Neutrophils % Seg Neuts % (Manual) Lymphocytes % (Manual) Monocytes % (Manual) Seg Neutrophils # Seg Neutrophils # Man Lymphocytes # (Manual) Monocytes # (Manual) Eosinophils # (Manual) APTT POC ABG pH POC ABG pCO2 Sodium Potassium Chloride Carbon Dioxide BUN Creatinine Glucose POC Glucose 120 H 110 H 127 H Uric Acid Calcium Phosphorus Magnesium Total Bilirubin Alkaline Phosphatase Ammonia Total Protein Albumin Urine WBC (Auto) Crossmatch 03/24/16 03/24/16 03/24/16 06:44 06:44 11:22 WBC 25.1 H RBC 3.22 L Hgb 9.8 L Hct 29.6 L MCV RDW 15.8 H Plt Count Lymph % (Auto) Dickson % (Auto) Dickson # Eos # Seg Neutrophils % Seg Neuts % (Manual) Lymphocytes % (Manual) Monocytes % (Manual) Seg Neutrophils # Seg Neutrophils # Man Lymphocytes # (Manual) Monocytes # (Manual) Eosinophils # (Manual) APTT POC ABG pH POC ABG pCO2 Sodium Potassium Chloride Carbon Dioxide BUN Creatinine 0.5 L Glucose 123 H POC Glucose 107 H Uric Acid Calcium 6.4 L Phosphorus Magnesium Total Bilirubin Alkaline Phosphatase Ammonia Total Protein Albumin Urine WBC (Auto) Crossmatch 03/24/16 03/24/16 03/25/16 16:17 23:44 04:50 WBC 25.2 H RBC 3.34 L Hgb 10.0 L Hct MCV RDW 16.1 H Plt Count Lymph % (Auto) Dickson % (Auto) Dickson # Eos # Seg Neutrophils % Seg Neuts % (Manual) Lymphocytes % (Manual) Monocytes % (Manual) Seg Neutrophils # Seg Neutrophils # Man Lymphocytes # (Manual) Monocytes # (Manual) Eosinophils # (Manual) APTT POC ABG pH POC ABG pCO2 Sodium Potassium Chloride Carbon Dioxide BUN Creatinine Glucose POC Glucose 135 H 156 H Uric Acid Calcium Phosphorus Magnesium Total Bilirubin Alkaline Phosphatase Ammonia Total Protein Albumin Urine WBC (Auto) Crossmatch 03/25/16 03/25/16 03/25/16 04:50 06:14 12:24 WBC RBC Hgb Hct MCV RDW Plt Count Lymph % (Auto) Dickson % (Auto) Dickson # Eos # Seg Neutrophils % Seg Neuts % (Manual) Lymphocytes % (Manual) Monocytes % (Manual) Seg Neutrophils # Seg Neutrophils # Man Lymphocytes # (Manual) Monocytes # (Manual) Eosinophils # (Manual) APTT POC ABG pH POC ABG pCO2 Sodium Potassium Chloride Carbon Dioxide BUN Creatinine 0.4 L Glucose POC Glucose 106 H 106 H Uric Acid Calcium 6.3 L Phosphorus Magnesium Total Bilirubin Alkaline Phosphatase Ammonia Total Protein Albumin Urine WBC (Auto) Crossmatch 03/26/16 03/26/16 03/26/16 01:25 04:00 06:12 WBC 21.6 H RBC 3.22 L Hgb 9.7 L Hct 29.7 L MCV RDW 15.9 H Plt Count Lymph % (Auto) Dickson % (Auto) Dickson # Eos # Seg Neutrophils % Seg Neuts % (Manual) 93.0 H Lymphocytes % (Manual) 2.0 L Monocytes % (Manual) Seg Neutrophils # Seg Neutrophils # Man 20.1 H Lymphocytes # (Manual) 0.4 L Monocytes # (Manual) 0.9 H Eosinophils # (Manual) APTT POC ABG pH POC ABG pCO2 Sodium Potassium Chloride Carbon Dioxide BUN Creatinine 0.4 L Glucose 116 H POC Glucose 117 H Uric Acid Calcium 6.5 L Phosphorus Magnesium Total Bilirubin 1.3 H Alkaline Phosphatase 155 H Ammonia Total Protein Albumin 1.5 L Urine WBC (Auto) Crossmatch 03/26/16 03/26/16 03/26/16 06:42 11:18 16:21 WBC RBC Hgb Hct MCV RDW Plt Count Lymph % (Auto) Dickson % (Auto) Dickson # Eos # Seg Neutrophils % Seg Neuts % (Manual) Lymphocytes % (Manual) Monocytes % (Manual) Seg Neutrophils # Seg Neutrophils # Man Lymphocytes # (Manual) Monocytes # (Manual) Eosinophils # (Manual) APTT POC ABG pH POC ABG pCO2 Sodium Potassium Chloride Carbon Dioxide BUN Creatinine Glucose POC Glucose 120 H 109 H 112 H Uric Acid Calcium Phosphorus Magnesium Total Bilirubin Alkaline Phosphatase Ammonia Total Protein Albumin Urine WBC (Auto) Crossmatch 03/27/16 03/27/16 03/27/16 00:27 06:25 07:19 WBC 21.4 H RBC 3.11 L Hgb 9.4 L Hct 29.2 L MCV RDW 16.3 H Plt Count Lymph % (Auto) Dickson % (Auto) Dickson # Eos # Seg Neutrophils % Seg Neuts % (Manual) 83.0 H Lymphocytes % (Manual) 7.5 L Monocytes % (Manual) 9.0 H Seg Neutrophils # Seg Neutrophils # Man 17.8 H Lymphocytes # (Manual) Monocytes # (Manual) 1.9 H Eosinophils # (Manual) APTT POC ABG pH POC ABG pCO2 Sodium Potassium Chloride Carbon Dioxide BUN Creatinine Glucose POC Glucose 124 H 116 H Uric Acid Calcium Phosphorus Magnesium Total Bilirubin Alkaline Phosphatase Ammonia Total Protein Albumin Urine WBC (Auto) Crossmatch 03/27/16 03/27/16 03/27/16 07:19 11:12 23:30 WBC RBC Hgb Hct MCV RDW Plt Count Lymph % (Auto) Dickson % (Auto) Dickson # Eos # Seg Neutrophils % Seg Neuts % (Manual) Lymphocytes % (Manual) Monocytes % (Manual) Seg Neutrophils # Seg Neutrophils # Man Lymphocytes # (Manual) Monocytes # (Manual) Eosinophils # (Manual) APTT POC ABG pH POC ABG pCO2 Sodium Potassium Chloride Carbon Dioxide BUN Creatinine 0.4 L Glucose 111 H POC Glucose 109 H 107 H Uric Acid Calcium 6.8 L Phosphorus Magnesium Total Bilirubin Alkaline Phosphatase 216 H Ammonia Total Protein Albumin 1.7 L Urine WBC (Auto) Crossmatch 03/28/16 03/28/16 06:06 16:23 WBC RBC Hgb Hct MCV RDW Plt Count Lymph % (Auto) Dickson % (Auto) Dickson # Eos # Seg Neutrophils % Seg Neuts % (Manual) Lymphocytes % (Manual) Monocytes % (Manual) Seg Neutrophils # Seg Neutrophils # Man Lymphocytes # (Manual) Monocytes # (Manual) Eosinophils # (Manual) APTT POC ABG pH POC ABG pCO2 Sodium Potassium Chloride Carbon Dioxide BUN Creatinine Glucose POC Glucose 130 H 109 H Uric Acid Calcium Phosphorus Magnesium Total Bilirubin Alkaline Phosphatase Ammonia Total Protein Albumin Urine WBC (Auto) Crossmatch Chest x-ray: report reviewed, image reviewed
--- NOTE | 2016-03-28 18:57 | Progress Note ---
Assessment and Plan Current antibiotics: None Previous antibiotics: Zosyn 4.5 grams IV q8h 03/03-03/07 Levaquin 750 mg IV q24h 03/03-03/06 ASSESSMENT: Edith Coelho is a 60-year-old female with hypertension, obstructive sleep apnea and COPD who was admitted to [facility] on 03/02/16 with a one-month history of decreased appetite and increasing weakness. She has had a persistent leukocytosis. Problem list: 1. Leukocytosis -Likely reactive secondary to whatever is causing her encephalopathy: ? ETOH withdrawal, etc. -Rule out infection although work up negative to date and no obvious source on exam -Rule out primary hematologic reason 2. AMS -Rule out toxic metabolic encephalopathy -Rule out ETOH withdrawal -Patient is still behaving as if there is some sort of neurologic etiology to her illness although none has been uncovered to date -MRI with no obvious abnormalities. -CSF normal although no serologies sent 3. Pyuria & previous urine culture growing E coli -Likely secondary to chronic Gonzalez and not urinary tract infection 4. MICAH -Resolved 5. Bilateral hydronephrosis -Seen on 03/21 CT scan -Resolved with bladder decompression PLAN: 1. Continue to follow off of antibiotics 2. Heme work up in progress 3. Continued supportive measures 4. If patient does not clinically improve, may need to consider transfer to a facility where a thorough neurologic evaluation can be done Bayron Avitia MD [facility] Office: [phone] Subjective Date of service: 03/28/16 Principal diagnosis: AMS/dysphagia/malnutrition Interval history: Awake and responsive but difficult to understand her speech. No discernible complaints at present Objective - Exam Narrative Exam: GENERAL: Well-developed, cachectic female who is in no acute distress but quite lethargic and does not follow commands. HEAD: Normocephalic. No lesions seen. EYES: Pupils are equal reactive to light and accommodation. There is no scleral icterus. Optic fundi are not examined. There is bilateral arcus senilis. EARS: Tympanic membranes are normal. THROAT: Oropharynx is normal with no evidence of oral candidiasis or pharyngitis. Poor dentition but no obvious dental infection seen. Some bleeding from the upper lip. NECK: Supple. No enlargement of the thyroid gland. No significant cervical lymphadenopathy. No jugular venous distention at 30. LUNGS: Clear with no adventitious sounds. HEART: Regular rate. S1 and S2 are normal. There are no murmurs, gallops, clicks or rubs heard. ABDOMEN: Soft, slightly distended and mildly, tender. Liver and spleen are not palpably enlarged or tender. No palpable masses. No ascites. Bowel sounds are normoactive. RECTAL: Not examined EXTREMITIES: No rash, peripheral lymphadenopathy, clubbing or edema. : Diaper in place. NEUROLOGIC: No focal findings. Follows simple commands - Constitutional Vitals: Vital Signs Temp Pulse Resp BP Pulse Ox 98.4 F 104 H 18 170/100 100 03/28/16 15:24 03/28/16 15:24 03/28/16 15:24 03/28/16 15:24 03/28/16 15:24 Temperature -Last 24 Hours Temperature 98.4 F Temperature 98.4 F Temperature 98.7 F Temperature 98.4 F Temperature 98.6 F Temperature 98.3 F Temperature 98.5 F - Labs CBC & Chem 7: 03/27/16 07:19 03/27/16 07:19 Labs: Abnormal lab results Microbiology 03/22/16 17:47 Urine,Gonzalze Port Urine Culture - > 100,000 mixed fredrick compatible with contamination 03/21/16 15:31 Stool Stool Occult Blood (MURALI) - Final 03/12/16 Unknown Cerebral Spinal Fluid CSF Culture - No growth 03/04/16 09:18 Peripheral/Venous Blood Culture - Final NO GROWTH AFTER 5 DAYS 03/04/16 09:01 Peripheral/Venous Blood Culture - Final NO GROWTH AFTER 5 DAYS 03/04/16 Unknown Urine,Clean Catch Urine Culture - Final Escherichia Coli
--- NOTE | 2016-03-28 20:00 | Progress Note ---
Assessment and Plan 1. Acute Metabolic encephalopathy. Disoriented, confused. Negative, MRI no acute intracranial abnormality noted Lumbar puncture and CSF analysis negative. Less agitated 2. Acute respiratory failure. Improving. On bronchodilators, supplemental oxygen. We'll taper IV Solu-Medrol. 3. Anemia due to chronic disease. trend H&H 4. Dysphagia, secondary to metabolic encephalopathy: PEG tube placed. Continue tube feeding. 5. Acute kidney injury, now resolved. Cr 0.5 today from 3.2, few days ago. Nephrology following. Gonzalez catheter, strict I/O. BUN/creatinine 6. No Hydronephrosis bilat. repeats CT Abd and pelvis showed no evidence of hydronephrosis 7. Leukocytosis. fluctuating. No fever. Continue to monitor off antibiotics as recommended by ID. Positive urine cultures for Escherichia coli almost 3 weeks ago. Completed antibiotics. ID Recommend monitor off antibiotics 8. Hypertension. Well controlled on Atenolol, lisinopril, clonidine pr Code satus Full code status --DVT prophylaxis with heparin Discussed this patient family member regarding the need for shelter facility placement was patient is off restraints. We'll monitor the patient off restraints from tomorrow Subjective Date of service: 03/28/16 Principal diagnosis: AMS/dysphagia/malnutrition Interval history: Still altered in her mental status. though less agitated and more coherent today. PT family member by bed side. Objective - Constitutional Vitals: Vital Signs - 12hr 03/28/16 03/28/16 03/28/16 08:00 08:03 09:00 Temperature 98.7 F Pulse Rate Pulse Rate [ 82 Anterior Bilateral Throughout] Pulse Rate [ 82 Left Radial] Pulse Rate [ 86 Right Radial] Respiratory 18 18 Rate Respiratory 16 Rate [Anterior Bilateral Throughout] Blood Pressure Blood Pressure 126/72 [Left Arm] O2 Sat by Pulse 100 100 Oximetry 03/28/16 03/28/16 03/28/16 11:40 15:22 15:24 Temperature 98.4 F 98.4 F Pulse Rate 82 Pulse Rate [ Anterior Bilateral Throughout] Pulse Rate [ 104 H 104 H Left Radial] Pulse Rate [ Right Radial] Respiratory 18 18 Rate Respiratory Rate [Anterior Bilateral Throughout] Blood Pressure 126/72 170/100 Blood Pressure 170/100 [Left Arm] O2 Sat by Pulse 100 100 Oximetry General appearance: Present: no acute distress, well-nourished - EENT Eyes: PERRL, EOM intact ENT: hearing intact, clear oral mucosa Ears: bilateral: normal - Neck Neck: supple, normal ROM - Respiratory Respiratory effort: normal Respiratory: bilateral: CTA - Breasts Breasts: normal - Cardiovascular Rhythm: regular Heart Sounds: Present: S1 & S2. Absent: gallop, rub Extremities: pulses intact, No edema, normal color, Full ROM - Gastrointestinal General gastrointestinal: Present: soft, non-tender, non-distended, normal bowel sounds - Integumentary Integumentary: clear, warm, dry - Musculoskeletal Musculoskeletal: generalized weakness - Neurologic Neurologic: moves all extremities - Psychiatric Psychiatric: other (doing but less agitated) - Labs CBC & Chem 7: 03/27/16 07:19 03/27/16 07:19 Labs: Abnormal lab results 03/27/16 03/28/16 03/28/16 Range/Units 23:30 06:06 16:23 POC Glucose 107 H 130 H 109 H (70-105)
[2016-03-28] MEDS ORDERED: SYMBICORT INHALATION SCH (22:00)
[2016-03-28] MEDS: NEURONTIN PO SCH (22:35)
[2016-03-28] MEDS: VISTARIL PO SCH (22:35)
[2016-03-28] MEDS: ZESTRIL PO SCH (22:38)
[2016-03-29] MEDS: NOVOLOG SUB-Q SCH ×4 (00:15→20:41)
[2016-03-29] MEDS: HEPARIN SUB-Q SCH ×3 (06:33→22:58)
[2016-03-29] MEDS: PULMICORT IH SCH ×2 (07:35→19:11)
[2016-03-29] MEDS: BROVANA NEBU IH SCH ×2 (07:35→19:11)
[2016-03-29 08:14] LABS: Anion Gap TNR mmol/L; Blood Urea Nitrogen TNR mg/dL (7-17); Carbon Dioxide TNR mmol/L (22-30); Chloride TNR mmol/L (98-107); Potassium TNR mmol/L (3.6-5.0); Sodium TNR mmol/L (137-145)
[2016-03-29 08:15] LABS: Alanine Aminotransferase TNR units/L (7-56); Albumin TNR g/dL (3.9-5); Albumin/Globulin Ratio TNR %; Alkaline Phosphatase TNR units/L (35-129); BUN/Creatinine Ratio TNR; Bilirubin,Total TNR mg/dL (0.1-1.2); Calcium TNR mg/dL (8.4-10.2); Glucose TNR mg/dL (65-100); Total Protein TNR g/dL (6.3-8.2)
--- NOTE | 2016-03-29 09:12 | Hem/Onc Progress Note ---
Assessment and Plan Leukocytosis possibly reactive. Awaiting final testing. Continue supportive care. Subjective Date of service: 03/29/16 Interval history: Patient confused. No significant change. Objective - Exam Narrative Exam: Confused. - Constitutional Vitals: Last Vital Signs Temp 97.6 F 03/29/16 00:48 Pulse 88 03/29/16 07:50 Resp 16 03/29/16 07:50 BP 113/73 03/29/16 00:48 Pulse Ox 96 03/29/16 08:24 Performance status: 4-completely disabled - Neck Neck: supple - Respiratory Respiratory: bilateral: diminished - Cardiovascular Rhythm: regular Extremities: No edema (SCDs) - Gastrointestinal General gastrointestinal: Present: soft (G-tube present) - Labs Lab Results: Laboratory Results - last 24 hr 03/28/16 03/28/16 03/29/16 11:22 16:23 00:04 Sodium Potassium Chloride Carbon Dioxide Anion Gap BUN Creatinine Estimated GFR BUN/Creatinine Ratio Glucose POC Glucose 90 109 H 120 H Calcium Total Bilirubin AST ALT Alkaline Phosphatase Total Protein Albumin Albumin/Globulin Ratio 03/29/16 03/29/16 03/29/16 06:47 06:57 07:14 Sodium TNR Potassium TNR Chloride TNR Carbon Dioxide TNR Anion Gap TNR BUN TNR Creatinine TNR Estimated GFR TNR BUN/Creatinine Ratio TNR Glucose TNR POC Glucose 98 107 H Calcium TNR Total Bilirubin TNR AST TNR ALT TNR Alkaline Phosphatase TNR Total Protein TNR Albumin TNR Albumin/Globulin Ratio TNR
[2016-03-29] MEDS ORDERED: SIMPLE SYRUP FEEDTUBE PRN ×2 (09:55)
[2016-03-29] MEDS ORDERED: SODIUM BICARBONATE FEEDTUBE PRN (09:55)
[2016-03-29] MEDS ORDERED: PANCREAZE DR 10,500 UNIT FEEDTUBE PRN (09:55)
[2016-03-29 11:16] LABS: Alanine Aminotransferase 18 units/L (7-56); Albumin 0.8 g/dL (3.9-5); Albumin/Globulin Ratio 0.1 %; Alkaline Phosphatase 190 units/L (35-129); Anion Gap 14 mmol/L; Bilirubin,Total 0.7 mg/dL (0.1-1.2); Blood Urea Nitrogen 8 mg/dL (7-17); Calcium 6.7 mg/dL (8.4-10.2); Carbon Dioxide 19 mmol/L (22-30); Chloride 103.9 mmol/L (98-107); Glucose 76 mg/dL (65-100); Sodium 130 mmol/L (137-145); Total Protein 6.4 g/dL (6.3-8.2)
[2016-03-29 11:20] LABS: Potassium 6.5 mmol/L (3.6-5.0)
[2016-03-29] MEDS: NEURONTIN PO SCH ×3 (12:08→22:55)
[2016-03-29] MEDS: TENORMIN PO SCH (12:10)
--- NOTE | 2016-03-29 12:53 | Progress Note ---
Assessment and Plan 60 y/o female with renal failure, electrolyte imbalance and acute respiratory failure with bilateral pleural effusions right greater than left and right sided hydronephrosis 1. Mental status is better, at least from an alertness standpoint. Follow up neuro recs 2. Continue supplemental O2 3. Repeat CXR as needed, based on O2 requirement 4. Will see PRN Subjective Date of service: 03/29/16 Principal diagnosis: AMS/dysphagia/malnutrition Interval history: No acute events. at bedside. More awake than when I saw her on transfer to the ICU one week ago. Objective - Constitutional Vitals: Vital Signs - 12hr 03/29/16 03/29/16 03/29/16 07:35 07:50 08:24 Temperature Pulse Rate [ 86 88 Anterior Bilateral Throughout] Pulse Rate [ Right Dorsalis Pedis] Respiratory Rate Respiratory 16 16 Rate [Anterior Bilateral Throughout] Blood Pressure Blood Pressure [Right Radial Artery] O2 Sat by Pulse 96 Oximetry 03/29/16 03/29/16 09:41 12:10 Temperature 98.1 F Pulse Rate [ Anterior Bilateral Throughout] Pulse Rate [ 83 Right Dorsalis Pedis] Respiratory 16 Rate Respiratory Rate [Anterior Bilateral Throughout] Blood Pressure 111/62 Blood Pressure 111/72 [Right Radial Artery] O2 Sat by Pulse 95 Oximetry - Labs CBC & Chem 7: 03/27/16 07:19 03/29/16 10:28 Labs: Abnormal lab results 03/28/16 03/29/16 03/29/16 Range/Units 16:23 00:04 06:57 Sodium (137-145) mmol/L Potassium (3.6-5.0) mmol/L Carbon Dioxide (22-30) mmol/L Creatinine (0.7-1.2) mg/dL POC Glucose 109 H 120 H 107 H (70-105) Calcium (8.4-10.2) mg/dL AST (5-40) units/L Alkaline Phosphatase (35-129) units/L Albumin (3.9-5) g/dL 03/29/16 Range/Units 10:28 Sodium 130 L D (137-145) mmol/L Potassium 6.5 H* D (3.6-5.0) mmol/L Carbon Dioxide 19 L (22-30) mmol/L Creatinine 0.4 L (0.7-1.2) mg/dL POC Glucose (70-105) Calcium 6.7 L (8.4-10.2) mg/dL AST 56 H (5-40) units/L Alkaline Phosphatase 190 H (35-129) units/L Albumin 0.8 L (3.9-5) g/dL
--- NOTE | 2016-03-29 13:00 | Progress Note ---
Assessment and Plan 1. Acute Metabolic encephalopathy. Disoriented, confused. Negative MRI , no acute intracranial abnormality noted Lumbar puncture and CSF analysis negative. Less agitated 2. Acute respiratory failure. Improving. On bronchodilators, supplemental oxygen. Tapering IV Solu-Medrol. 3. Anemia due to chronic disease. trend H&H 4. Dysphagia, secondary to metabolic encephalopathy: Continue tube feeding. 5. Acute kidney injury, now resolved. Nephrology following. Gonzalez catheter, strict I/O. BUN/creatinine 6. Dehydration: IVF 7. Leukocytosis: No fever. Continue to monitor off antibiotics as recommended by ID. 8. Hypertension. Well controlled on Atenolol, lisinopril, clonidine prn. Code satus Full code status --DVT prophylaxis with heparin Considering nursing facility placement once patient is off restraints from today and monitored. Subjective Date of service: 03/29/16 Principal diagnosis: AMS/dysphagia/malnutrition Interval history: Still altered in her mental status. Objective - Constitutional Vitals: Vital Signs - 12hr 03/29/16 03/29/16 03/29/16 07:35 07:50 08:24 Temperature Pulse Rate [ 86 88 Anterior Bilateral Throughout] Pulse Rate [ Right Dorsalis Pedis] Respiratory Rate Respiratory 16 16 Rate [Anterior Bilateral Throughout] Blood Pressure Blood Pressure [Right Radial Artery] O2 Sat by Pulse 96 Oximetry 03/29/16 03/29/16 09:41 12:10 Temperature 98.1 F Pulse Rate [ Anterior Bilateral Throughout] Pulse Rate [ 83 Right Dorsalis Pedis] Respiratory 16 Rate Respiratory Rate [Anterior Bilateral Throughout] Blood Pressure 111/62 Blood Pressure 111/72 [Right Radial Artery] O2 Sat by Pulse 95 Oximetry General appearance: Present: no acute distress, well-nourished - EENT Eyes: PERRL, EOM intact ENT: hearing intact, clear oral mucosa, other (dry oral mucous membrane) Ears: bilateral: normal - Neck Neck: supple, normal ROM - Respiratory Respiratory effort: normal Respiratory: bilateral: CTA - Breasts Breasts: normal - Cardiovascular Rhythm: regular Heart Sounds: Present: S1 & S2. Absent: gallop, rub Extremities: pulses intact, No edema, normal color, Full ROM - Gastrointestinal General gastrointestinal: Present: soft, non-tender, non-distended, normal bowel sounds - Genitourinary Female genitourinary: normal - Integumentary Integumentary: clear, warm, dry - Musculoskeletal Musculoskeletal: 1, strength equal bilaterally - Neurologic Neurologic: moves all extremities, other (confused) - Psychiatric Psychiatric: cooperative - Labs CBC & Chem 7: 03/27/16 07:19 03/29/16 10:28 Labs: Abnormal lab results 03/28/16 03/29/16 03/29/16 Range/Units 16:23 00:04 06:57 Sodium (137-145) mmol/L Potassium (3.6-5.0) mmol/L Carbon Dioxide (22-30) mmol/L Creatinine (0.7-1.2) mg/dL POC Glucose 109 H 120 H 107 H (70-105) Calcium (8.4-10.2) mg/dL AST (5-40) units/L Alkaline Phosphatase (35-129) units/L Albumin (3.9-5) g/dL 03/29/16 Range/Units 10:28 Sodium 130 L D (137-145) mmol/L Potassium 6.5 H* D (3.6-5.0) mmol/L Carbon Dioxide 19 L (22-30) mmol/L Creatinine 0.4 L (0.7-1.2) mg/dL POC Glucose (70-105) Calcium 6.7 L (8.4-10.2) mg/dL AST 56 H (5-40) units/L Alkaline Phosphatase 190 H (35-129) units/L Albumin 0.8 L (3.9-5) g/dL
[2016-03-29] MEDS: VITAMIN B-1 FEEDTUBE SCH (13:11)
[2016-03-29] MEDS: PROzac PO SCH (13:11)
[2016-03-29] MEDS: FOLVITE PO SCH (13:12)
[2016-03-29] MEDS: VISTARIL PO SCH ×2 (13:12→22:56)
[2016-03-29] MEDS: ZESTRIL PO SCH ×2 (13:13→22:57)
[2016-03-29] MEDS ORDERED: KIONEX PO ONE (13:48)
[2016-03-29] MEDS ORDERED: CATHFLO IV ONE (18:54)
[2016-03-30] MEDS: NOVOLOG SUB-Q SCH (00:35)
[2016-03-30] MEDS ORDERED: CATHFLO IV ONE (01:00)
[2016-03-30] MEDS: HEPARIN SUB-Q SCH (06:18)
[2016-03-30 06:54] LABS: Basophils % (Auto) 1.3 % (0.0-1.8); Eosinophils % (Auto) 1.3 % (0.0-4.3); Hemoglobin 8.5 gm/dl (10.1-14.3); Mean Corpuscular HGB Conc 33 % (30-34); Mean Corpuscular Hemoglobin 31 pg (28-32); Mean Corpuscular Volume 93 fl (79-97); Platelet Count 462 K/mm3 (140-440); Red Cell Distribution Width 15.9 % (13.2-15.2); White Blood Count 19.8 K/mm3 (4.5-11.0)
[2016-03-30 07:16] LABS: Alanine Aminotransferase 17 units/L (7-56); Albumin 1.3 g/dL (3.9-5); Albumin/Globulin Ratio 0.3 %; Alkaline Phosphatase 205 units/L (35-129); Bilirubin,Total 0.5 mg/dL (0.1-1.2); Blood Urea Nitrogen 8 mg/dL (7-17); Calcium 6.7 mg/dL (8.4-10.2); Chloride 104.7 mmol/L (98-107); Glucose 112 mg/dL (65-100); Total Protein 6.1 g/dL (6.3-8.2)
[2016-03-30 07:29] LABS: Anion Gap 9 mmol/L; Carbon Dioxide 27 mmol/L (22-30); Potassium 3.9 mmol/L (3.6-5.0); Sodium 137 mmol/L (137-145)
[2016-03-30] MEDS: BROVANA NEBU IH SCH (08:08)
[2016-03-30] MEDS: PULMICORT IH SCH (08:08)
[2016-03-30 08:33] VITALS: BP 113/75
--- NOTE | 2016-03-30 09:10 | Progress Note ---
Hospitalist Physical - Constitutional Vitals: Temp Pulse Resp BP Pulse Ox 98.0 F 80 18 113/75 96 03/30/16 08:31 03/30/16 08:31 03/30/16 08:31 03/30/16 08:31 03/30/16 08:12 General appearance: Present: no acute distress, well-nourished Results - Labs CBC & Chem 7: 03/30/16 06:30 03/30/16 06:30 Labs: Laboratory Last Values WBC 19.8 K/mm3 (4.5-11.0) H 03/30/16 06:30 RBC 2.80 M/mm3 (3.65-5.03) L 03/30/16 06:30 Hgb 8.5 gm/dl (10.1-14.3) L 03/30/16 06:30 Hct 26.0 % (30.3-42.9) L 03/30/16 06:30 MCV 93 fl (79-97) 03/30/16 06:30 MCH 31 pg (28-32) 03/30/16 06:30 MCHC 33 % (30-34) 03/30/16 06:30 RDW 15.9 % (13.2-15.2) H 03/30/16 06:30 Plt Count 462 K/mm3 (140-440) H 03/30/16 06:30 Lymph % (Auto) 8.5 % (13.4-35.0) L 03/30/16 06:30 [place] % (Auto) 7.4 % (0.0-7.3) H 03/30/16 06:30 Eos % (Auto) 1.3 % (0.0-4.3) 03/30/16 06:30 Baso % (Auto) 1.3 % (0.0-1.8) 03/30/16 06:30 Lymph # 1.7 K/mm3 (1.2-5.4) 03/30/16 06:30 [place] # 1.5 K/mm3 (0.0-0.8) H 03/30/16 06:30 Eos # 0.3 K/mm3 (0.0-0.4) 03/30/16 06:30 Baso # 0.3 K/mm3 (0.0-0.1) H 03/30/16 06:30 Add Manual Diff Complete 03/27/16 07:19 Total Counted 200 03/27/16 07:19 Seg Neutrophils % 81.5 % (40.0-70.0) H 03/30/16 06:30 Seg Neuts % (Manual) 83.0 % (40.0-70.0) H 03/27/16 07:19 Band Neutrophils % 0 % 03/27/16 07:19 Lymphocytes % (Manual) 7.5 % (13.4-35.0) L 03/27/16 07:19 Reactive Lymphs % (Man) 0 % 03/27/16 07:19 Monocytes % (Manual) 9.0 % (0.0-7.3) H 03/27/16 07:19 Eosinophils % (Manual) 0.5 % (0.0-4.3) 03/27/16 07:19 Basophils % (Manual) 0 % (0.0-1.8) 03/27/16 07:19 Metamyelocytes % 0 % 03/27/16 07:19 Myelocytes % 0 % 03/27/16 07:19 Promyelocytes % 0 % 03/27/16 07:19 Blast Cells % 0 % 03/27/16 07:19 Nucleated RBC % Not Reportable 03/27/16 07:19 Seg Neutrophils # 16.1 K/mm3 (1.8-7.7) H 03/30/16 06:30 Seg Neutrophils # Man 17.8 K/mm3 (1.8-7.7) H 03/27/16 07:19 Band Neutrophils # 0.0 K/mm3 03/27/16 07:19 Lymphocytes # (Manual) 1.6 K/mm3 (1.2-5.4) 03/27/16 07:19 Abs React Lymphs (Man) 0.0 K/mm3 03/27/16 07:19 Monocytes # (Manual) 1.9 K/mm3 (0.0-0.8) H 03/27/16 07:19 Eosinophils # (Manual) 0.1 K/mm3 (0.0-0.4) 03/27/16 07:19 Basophils # (Manual) 0.0 K/mm3 (0.0-0.1) 03/27/16 07:19 Metamyelocytes # 0.0 K/mm3 03/27/16 07:19 Myelocytes # 0.0 K/mm3 03/27/16 07:19 Promyelocytes # 0.0 K/mm3 03/27/16 07:19 Blast Cells # 0.0 K/mm3 03/27/16 07:19 WBC Morphology Not Reportable 03/27/16 07:19 Hypersegmented Neuts Not Reportable 03/27/16 07:19 Hyposegmented Neuts Not Reportable 03/27/16 07:19 Hypogranular Neuts Not Reportable 03/27/16 07:19 Smudge Cells Not Reportable 03/27/16 07:19 Toxic Granulation Not Reportable 03/27/16 07:19 Toxic Vacuolation Not Reportable 03/27/16 07:19 Dohle Bodies Not Reportable 03/27/16 07:19 Pelger-Huet Anomaly Not Reportable 03/27/16 07:19 Betty Rods Not Reportable 03/27/16 07:19 Platelet Estimate Consistent w auto 03/27/16 07:19 Clumped Platelets Not Reportable 03/27/16 07:19 Plt Clumps, EDTA Not Reportable 03/27/16 07:19 Large Platelets Not Reportable 03/27/16 07:19 Giant Platelets Not Reportable 03/27/16 07:19 Platelet Satelliting Not Reportable 03/27/16 07:19 Plt Morphology Comment Not Reportable 03/27/16 07:19 RBC Morphology Not Reportable 03/27/16 07:19 Dimorphic RBCs Not Reportable 03/27/16 07:19 Polychromasia Not Reportable 03/27/16 07:19 Hypochromasia Not Reportable 03/27/16 07:19 Poikilocytosis Not Reportable 03/27/16 07:19 Anisocytosis 1+ 03/27/16 07:19 Microcytosis Not Reportable 03/27/16 07:19 Macrocytosis Not Reportable 03/27/16 07:19 Spherocytes Not Reportable 03/27/16 07:19 Pappenheimer Bodies Not Reportable 03/27/16 07:19 Sickle Cells Not Reportable 03/27/16 07:19 Target Cells 1+ 03/27/16 07:19 Tear Drop Cells Not Reportable 03/27/16 07:19 Ovalocytes Not Reportable 03/27/16 07:19 Helmet Cells Not Reportable 03/27/16 07:19 [place] Bodies Not Reportable 03/27/16 07:19 [place] Rings Not Reportable 03/27/16 07:19 Tim Cells Not Reportable 03/27/16 07:19 Bite Cells Not Reportable 03/27/16 07:19 Crenated Cell Not Reportable 03/27/16 07:19 Elliptocytes Not Reportable 03/27/16 07:19 Acanthocytes (Spur) Not Reportable 03/27/16 07:19 Rouleaux Not Reportable 03/27/16 07:19 Hemoglobin C Crystals Not Reportable 03/27/16 07:19 Schistocytes Not Reportable 03/27/16 07:19 Malaria parasites Not Reportable 03/27/16 07:19 Matthew Bodies Not Reportable 03/27/16 07:19 Hem Pathologist Commnt No 03/27/16 07:19 PT 13.0 Sec. (12.2-14.9) 03/12/16 09:50 INR 0.99 (0.87-1.13) 03/12/16 09:50 APTT 38.8 Sec. (24.2-36.6) H 03/12/16 09:50 POC ABG pH 7.365 (7.35-7.45) 03/20/16 21:00 POC ABG pCO2 25.9 (35-45) L 03/20/16 21:00 POC ABG pO2 90 (80-105) 03/20/16 21:00 POC ABG HCO3 14.8 03/20/16 21:00 POC ABG Total CO2 16 03/20/16 21:00 POC ABG O2 Sat 97 03/20/16 21:00 POC ABG Base Excess -11 03/20/16 21:00 FiO2 31 % 03/20/16 21:00 Sodium 137 mmol/L (137-145) D 03/30/16 06:30 Potassium 3.9 mmol/L (3.6-5.0) D 03/30/16 06:30 Chloride 104.7 mmol/L (98-107) 03/30/16 06:30 Carbon Dioxide 27 mmol/L (22-30) D 03/30/16 06:30 Anion Gap 9 mmol/L 03/30/16 06:30 BUN 8 mg/dL (7-17) 03/30/16 06:30 Creatinine 0.4 mg/dL (0.7-1.2) L 03/30/16 06:30 Estimated GFR > 60 ml/min 03/30/16 06:30 BUN/Creatinine Ratio 20.00 % 03/30/16 06:30 Glucose 112 mg/dL (65-100) H 03/30/16 06:30 POC Glucose 105 (70-105) 03/30/16 07:33 Osmolality 301 Mosm/kg 03/17/16 23:50 Lactic Acid 1.7 mmol/L (0.7-2.0) 03/03/16 02:43 Uric Acid 8.4 mg/dL (3.5-7.6) H 03/17/16 23:50 Calcium 6.7 mg/dL (8.4-10.2) L 03/30/16 06:30 Ionized Calcium 4.9 mg/dL (4.8-5.6) 03/17/16 20:53 Phosphorus 4.6 mg/dL (2.5-4.5) H 03/21/16 04:45 Magnesium 1.6 mg/dL (1.7-2.3) L 03/21/16 04:45 Total Bilirubin 0.5 mg/dL (0.1-1.2) 03/30/16 06:30 AST 37 units/L (5-40) 03/30/16 06:30 ALT 17 units/L (7-56) 03/30/16 06:30 Alkaline Phosphatase 205 units/L (35-129) H 03/30/16 06:30 Ammonia 58.0 umol/L (25-60) 03/22/16 19:50 Total Creatine Kinase 42 units/L (30-135) 03/02/16 18:35 CK-MB (CK-2) < 1.0 ng/mL (0.0-4.0) 03/02/16 18:35 CK-MB (CK-2) Rel Index 2.3 (0-4) 03/02/16 18:35 Troponin T < 0.010 ng/mL (0.00-0.029) 03/02/16 18:35 Total Protein 6.1 g/dL (6.3-8.2) L 03/30/16 06:30 Albumin 1.3 g/dL (3.9-5) L 03/30/16 06:30 Albumin/Globulin Ratio 0.3 % 03/30/16 06:30 TSH 0.427 mlU/mL (0.270-4.200) 03/04/16 19:38 Free T4 1.36 ng/dL (0.76-1.46) 03/02/16 18:35 Urine Color Yellow (Yellow) 03/22/16 17:47 Urine Turbidity Cloudy (Clear) 03/22/16 17:47 Urine pH 6.0 (5.0-7.0) 03/22/16 17:47 Ur Specific [place] 1.012 (1.003-1.030) 03/22/16 17:47 Urine Protein <15 mg/dl mg/dL (Negative) 03/22/16 17:47 Urine Glucose (UA) Neg mg/dL (Negative) 03/22/16 17:47 Urine Ketones Neg mg/dL (Negative) 03/22/16 17:47 Urine Blood Lg (Negative) 03/22/16 17:47 Urine Nitrite Neg (Negative) 03/22/16 17:47 Urine Bilirubin Neg (Negative) 03/22/16 17:47 Urine Ictotest Positive (Negative) 03/02/16 20:44 Urine Urobilinogen < 2.0 mg/dL (<2.0) 03/22/16 17:47 Ur Leukocyte Esterase Lg (Negative) 03/22/16 17:47 Urine WBC (Auto) 138.0 /HPF (0.0-6.0) H 03/22/16 17:47 Urine RBC (Auto) > 182.0 /HPF (0.0-6.0) 03/22/16 17:47 U Epithel Cells (Auto) 1.0 /HPF (0-13.0) 03/22/16 17:47 Urine Bacteria (Auto) 3+ /HPF (Negative) 03/22/16 17:47 Urine WBC Clumps 3+ /HPF 03/22/16 17:47 Urine Mucus Few /HPF 03/22/16 17:47 CSF Appearance Clear 03/12/16 Unknown CSF Color Colorless 03/12/16 Unknown CSF WBC 0 /mm3 (1-10) 03/12/16 Unknown CSF RBC 102 /mm3 (0-0) 03/12/16 Unknown CSF Seg Neutrophils 0 % (0-6) 03/12/16 Unknown CSF Lymphocytes % 0 % (40-80) 03/12/16 Unknown CSF Reactive Lymphs 0 % 03/12/16 Unknown CSF Monocytes % 0 % (15-45) 03/12/16 Unknown CSF Eosinophils % 0 % 03/12/16 Unknown CSF Basophils 0 % 03/12/16 Unknown CSF Comment No cells seen 03/12/16 Unknown CSF Pathologist Review C 03/12/16 Unknown CSF Glucose 59 mg/dL 03/12/16 Unknown CSF Total Protein 48 mg/dL 03/12/16 Unknown Immunofix Electrophor see below (()) 03/17/16 23:50 JAROD Screen Negative (Negative) 03/17/16 23:50 Blood Type B POSITIVE 03/19/16 09:30 Antibody Screen Negative 03/19/16 09:30 Crossmatch See Detail 03/19/16 09:30
--- NOTE | 2016-03-30 09:25 | Hem/Onc Progress Note ---
Assessment and Plan Leukocytosis possibly reactive. Awaiting final testing. Continue supportive care. CBC stable Subjective Date of service: 03/30/16 Interval history: Patient confused. No significant change. Objective - Exam Narrative Exam: Confused. - Constitutional Vitals: Last Vital Signs Temp 98.0 F 03/30/16 08:31 Pulse 80 03/30/16 08:31 Resp 18 03/30/16 08:31 BP 113/75 03/30/16 08:31 Pulse Ox 96 03/30/16 08:12 General appearance: cachectic Performance status: 4-completely disabled - Cardiovascular Rhythm: regular Extremities: No edema - Gastrointestinal General gastrointestinal: Present: soft (sl distended) - Labs Lab Results: Laboratory Results - last 24 hr 03/29/16 03/29/16 03/29/16 10:28 11:48 23:27 WBC RBC Hgb Hct MCV MCH MCHC RDW Plt Count Lymph % (Auto) [place] % (Auto) Eos % (Auto) Baso % (Auto) Lymph # [place] # Eos # Baso # Seg Neutrophils % Seg Neutrophils # Sodium 130 L D Potassium 6.5 H* D Chloride 103.9 Carbon Dioxide 19 L Anion Gap 14 BUN 8 Creatinine 0.4 L Estimated GFR > 60 BUN/Creatinine Ratio 20.00 Glucose 76 POC Glucose 84 88 Calcium 6.7 L Total Bilirubin 0.7 AST 56 H ALT 18 Alkaline Phosphatase 190 H Total Protein 6.4 Albumin 0.8 L Albumin/Globulin Ratio 0.1 03/30/16 03/30/16 03/30/16 06:30 06:30 07:33 WBC 19.8 H RBC 2.80 L Hgb 8.5 L Hct 26.0 L MCV 93 MCH 31 MCHC 33 RDW 15.9 H Plt Count 462 H Lymph % (Auto) 8.5 L [place] % (Auto) 7.4 H Eos % (Auto) 1.3 Baso % (Auto) 1.3 Lymph # 1.7 [place] # 1.5 H Eos # 0.3 Baso # 0.3 H Seg Neutrophils % 81.5 H Seg Neutrophils # 16.1 H Sodium 137 D Potassium 3.9 D Chloride 104.7 Carbon Dioxide 27 D Anion Gap 9 BUN 8 Creatinine 0.4 L Estimated GFR > 60 BUN/Creatinine Ratio 20.00 Glucose 112 H POC Glucose 105 Calcium 6.7 L Total Bilirubin 0.5 AST 37 ALT 17 Alkaline Phosphatase 205 H Total Protein 6.1 L Albumin 1.3 L Albumin/Globulin Ratio 0.3
[2016-03-30] MEDS: VITAMIN B-1 FEEDTUBE SCH (09:35)
[2016-03-30] MEDS: PROzac PO SCH (09:35)
[2016-03-30] MEDS: NEURONTIN PO SCH (09:35)
[2016-03-30] MEDS: TENORMIN PO SCH (09:36)
[2016-03-30] MEDS: ZESTRIL PO SCH (09:36)
[2016-03-30] MEDS: VISTARIL PO SCH (09:37)
[2016-03-30] MEDS: FOLVITE PO SCH (09:37)
--- NOTE | 2016-03-30 10:35 | Echocardiography Report ---
Transthoracic Echocardiogram BP: 126/72 HR: 82 Conclusions *Mild concentric left ventricular hypertrophy is observed. *The estimated ejection fraction is 45-50%. *There is grade 1 lv diastolic dysfunction *The right ventricle is mildly dilated. *The right ventricular global systolic function is normal. *The right atrial cavity size is normal. *The left atrial chamber size is normal. *There is no evidence of aortic regurgitation. *There is no evidence of aortic stenosis. *There is no evidence of mitral regurgitation. *There is no evidence of mitral stenosis. *There is mild to moderate tricuspid regurgitation. *There is mild pulmonic regurgitation. *There is no pericardial effusion. *The aortic root appears normal Findings Procedure Info: The study quality is fair. Left Ventricle: The left ventricular chamber size is normal. Mild concentric left ventricular hypertrophy is observed. Left Atrium: The left atrial chamber size is normal. Right Ventricle: The right ventricle is mildly dilated. The right ventricular global systolic function is normal. Right Atrium: The right atrial cavity size is normal. Aortic Valve: The aortic valve is trileaflet. There is no evidence of aortic regurgitation. There is no evidence of aortic stenosis. Mitral Valve: The mitral valve is not well visualized. There is no evidence of mitral regurgitation. There is no evidence of mitral stenosis. Tricuspid Valve: The tricuspid valve is not well visualized. There is mild to moderate tricuspid regurgitation. There is no tricuspid stenosis. Pulmonic Valve: There is mild pulmonic regurgitation. There is no pulmonic stenosis. Pericardium: There is no pericardial effusion. Measurements Chambers 2D Name Value Normal Range IVSd (2D) 1.08 cm (0.6 - 1.1) LVPWd 1.2 cm - LVPWd (2D) 1.16 cm (0.6 - 1.1) IVS:LVPW ratio (2D) 0.93 ratio - LVIDd 3.9 cm - LVIDs 3.1 cm - LVIDd (2D) 3.87 cm (3.7 - 5.6) LVIDs (2D) 3.1 cm (2 - 3.8) LV FS (Teichholz) (2D) 19.9 % - LV FS (cube) (2D) 19.9 % - LV EF (2D) 42 % - EF Teichholz (2D) 41.4 % - Ao root diameter (2D) 2.8 cm (2 - 3.7) LA dimension (AP) 2D 3.6 cm (1.9 - 4) LA:Ao ratio (2D) 1.29 ratio - Volumes/Mass Name Value Normal Range LA ESV SP 4CH (MOD) 31 ml - LV EDV SP 4CH (MOD) 83 ml - LV ESV SP 4CH (MOD) 33 ml - EF SP 4CH (MOD) 61 % - LV EDV SP 2CH (MOD) 65 ml - LV ESV SP 2CH (MOD) 18 ml - EF SP 2CH (MOD) 72 % - LV EDV BP 75 ml - LV ESV BP 24 ml - BP EF (MOD) 68 % - Diastolic/Systolic Function Name Value Normal Range MV E-wave Vmax 0.65 m/sec - MV deceleration time 155 msec - MV A-wave Vmax 0.65 m/sec - MV E:A ratio 1 ratio - LV septal e' Vmax 0.07 m/sec - LV lateral e' Vmax 0.11 m/sec - LV E:e' septal ratio 9.7 ratio - LV E:e' lateral ratio 5.8 ratio - Aortic Valve Name Value Normal Range LVOT diameter 2.2 cm - Tricuspid Valve Name Value Normal Range TR Vmax 3.15 m/sec - TR peak gradient 40 mmHg - RAP 3 mmHg - RVSP 43 mmHg - Pulmonic Valve/Qp:Qs Name Value Normal Range PV Vmax 0.54 m/sec - PV peak gradient 1 mmHg - WV end-diastolic Vmax 1.23 m/sec - PV acceleration time 130 msec -
--- NOTE | 2016-03-30 10:47 | Discharge Summary ---
Providers - Providers Date of Admission: 03/02/16 23:14 Date of discharge: 03/30/16 Attending physician: NOAH REED 03/03/16 01:06 Physical Therapy Evaluation and Treat [CONS] Routine Comment: Reason For Exam: weak 03/03/16 15:57 Speech Therapy Evaluation and Treat [CONS] Routine Reason For Exam: dysphagia 03/03/16 16:26 Consult to Physician [CONS] Routine Consulting Provider: MEME CHOWDHURY Reason For Exam: altered mental status,confusion Place consult to:: Dr. Chowdhury Notified:: PARAMJIT Phone number called:: [phone] Was contact made?: No Time called:: 16:38 Comment:: LEFT MESSAGE ON [employer]ANC[employer] MACHINE 03/04/16 14:31 Consult to Dietitian/Nutrition [CONS] Routine Physician Instructions: Reason For Exam: Reason for Consult: Write/Manage Tube Feeding 03/06/16 10:54 Consult to Physician [CONS] Routine Consulting Provider: MAIDA DOMINGUEZ Reason For Exam: Leukocytosis Place consult to:: Dr. Dominguez Notified:: office Phone number called:: [phone] Was contact made?: Yes If yes, spoke with:: arya Time called:: 11:37 03/08/16 07:11 PICC Line Insertion [Consult to PICC Line RN] [CONS] Routine Reason For Exam: multiple iv Type Line:: PICC 03/09/16 15:49 Speech Therapy Evaluation and Treat [CONS] Routine Reason For Exam: dysphagia 03/11/16 09:17 Consult to Physician [CONS] Routine Consulting Provider: STEFAN POWELL Reason For Exam: Dysphagia/PEG placement Place consult to:: flight controls engineer/ Notified:: OFFICE Phone number called:: [phone] Was contact made?: Yes If yes, spoke with:: YOJANA Time called:: 09:48 Comment:: JUNI NOTIFED 03/11/16 11:09 Consult to Physician [CONS] Urgent Consulting Provider: MEME CHOWDHURY Reason For Exam: follow up for altered mental status Place consult to:: adam Notified:: aman boone Phone number called:: [phone] Was contact made?: Yes If yes, spoke with:: Aman Boone Time called:: 11:12 03/13/16 19:15 Speech Therapy Evaluation and Treat [CONS] Routine Reason For Exam: reevaluation swallow 03/17/16 15:12 Consult to Physician [CONS] Routine Consulting Provider: NITZA CHILEL Reason For Exam: Acute kidney injury Place consult to:: Dr. Chilel Notified:: office Phone number called:: [phone] Was contact made?: Yes If yes, spoke with:: marisa Time called:: 16:55 03/20/16 18:39 Consult to Physician [CONS] Routine Consulting Provider: GARIMA KENNEDY Reason For Exam: Acute resp failure. Air Sampling And Monitoring management. Place consult to:: Dr. Kennedy Notified:: ANSWERING SERVICES Phone number called:: [phone] Was contact made?: Yes If yes, spoke with:: MARILYNN Time called:: 18:58 Comment:: PETE NOTIFIED 03/22/16 07:32 Consult to Physician [CONS] Routine Consulting Provider: ANNETTE PRABHAKAR Reason For Exam: Bilateral hydronephrosis Place consult to:: Dr. Prabhakar Notified:: no Phone number called:: Was contact made?: No If yes, spoke with:: dr reed will speak with dr prabhakar Time called:: 08:24 03/23/16 08:37 Consult to Physician [CONS] Routine Consulting Provider: MAIDA DOMINGUEZ Reason For Exam: re-cons UTI,fever,leukocytosis Place consult to:: OFFICE Notified:: YES Phone number called:: [phone] Was contact made?: Yes If yes, spoke with:: ANDER Time called:: 09:39 03/23/16 10:26 Consult to Physician [CONS] Urgent Consulting Provider: TABITHA FORREST Reason For Exam: UTI fever Place consult to:: Dr Forrest Notified:: yes Was contact made?: Yes If yes, spoke with:: Dr Forrest Time called:: 10:29 03/24/16 14:56 Physical Therapy Evaluation and Treat [CONS] Routine Comment: Reason For Exam: DECONDITIONING AND PLACEMENT 03/25/16 12:21 Consult to Physician [CONS] Routine Consulting Provider: YARELIS COPELAND Reason For Exam: anemia, encephalopathy, leukocytosis Place consult to:: Notified:: OFFICE Phone number called:: [phone] Was contact made?: Yes If yes, spoke with:: EVAN Time called:: 12:55 Comment:: EDNA NOTIFIED Primary care physician: DIANELYS MALAGON Hospitalization Condition: Fair Disposition: DC/[place] SNF W [facility] CERT - Discharge Diagnoses (1) Dehydration Status: Acute (2) Hydronephrosis Status: Acute (3) Sepsis Status: Acute (4) UTI (urinary tract infection) Status: Acute (5) Encephalopathy Status: Acute (6) MICAH (acute kidney injury) Status: Acute (7) ATN (acute tubular necrosis) Status: Acute Core Measure Documentation - Palliative Care Palliative Care/ Comfort Measures: Not Applicable - Core Measures Any of the following diagnoses?: none Exam - Constitutional Vitals: Temp Pulse Resp BP Pulse Ox 98.0 F 80 18 113/75 96 03/30/16 08:31 03/30/16 08:31 03/30/16 08:31 03/30/16 08:31 03/30/16 08:12 Plan Activity: advance as tolerated Diet: other (tube feeding) Additional Instructions: 1.[facility]5 days. Follow up with: DIANELYS MALAGON MD [Primary Care Provider] - 3-5 Days
--- NOTE | 2016-03-30 14:20 | Progress Note ---
Assessment and Plan 60 y/o female with renal failure, electrolyte imbalance and acute respiratory failure with bilateral pleural effusions right greater than left and right sided hydronephrosis 1. No objection to discharge Subjective Date of service: 03/30/16 Principal diagnosis: AMS/dysphagia/malnutrition Interval history: No acute events. Much much more awake and alert today. Held a conversation with patient at the bedside. Weaned off of oxygen. Remainder is negative. Per chart, going home today. No family at bedside. Objective Vital Signs - 12hr 03/30/16 03/30/16 03/30/16 03:18 08:09 08:12 Temperature Pulse Rate [ 82 Anterior Bilateral Throughout] Pulse Rate [ 82 Right Radial] Respiratory 18 Rate Respiratory 16 Rate [Anterior Bilateral Throughout] Blood Pressure [Left Arm] O2 Sat by Pulse 100 96 Oximetry 03/30/16 03/30/16 08:24 08:31 Temperature 98.0 F Pulse Rate [ 86 Anterior Bilateral Throughout] Pulse Rate [ 80 Right Radial] Respiratory 18 Rate Respiratory 16 Rate [Anterior Bilateral Throughout] Blood Pressure 113/75 [Left Arm] O2 Sat by Pulse Oximetry Constitutional: alert, other (confused) Eyes: non-icteric ENT: oropharynx dry Neck: supple Effort: normal Ascultation: Right: rales (base), Bilateral: clear, diminished breath sounds Percussion: Bilateral: not dull Cardiovascular: regular rate and rhythm (no mrg) Gastrointestinal: normoactive bowel sounds, soft, non-tender, non-distended Integumentary: normal Extremities: no cyanosis, no edema, pink and warm Neurologic: pupils equal and round, unable to assess (confused, grossly nonfocal ) Psychiatric: other (unable to assess) CBC and BMP: 03/30/16 06:30 03/30/16 06:30 ABG, PT/INR, D-dimer: ABG POC ABG pH 7.365 (7.35-7.45) 03/20/16 21:00 POC ABG pCO2 25.9 (35-45) L 03/20/16 21:00 POC ABG pO2 90 (80-105) 03/20/16 21:00 POC ABG HCO3 14.8 03/20/16 21:00 POC ABG Total CO2 16 03/20/16 21:00 POC ABG O2 Sat 97 03/20/16 21:00 PT/INR, D-dimer PT 13.0 Sec. (12.2-14.9) 03/12/16 09:50 INR 0.99 (0.87-1.13) 03/12/16 09:50 Abnormal lab findings: Abnormal Labs 03/03/16 03/03/16 03/04/16 15:47 15:47 05:14 WBC 19.2 H 23.1 H RBC 3.64 L Hgb Hct MCV RDW 16.5 H 16.6 H Plt Count 449 H Lymph % (Auto) Trinity % (Auto) Trinity # Eos # Baso # Seg Neutrophils % Seg Neuts % (Manual) Lymphocytes % (Manual) Monocytes % (Manual) Seg Neutrophils # Seg Neutrophils # Man Lymphocytes # (Manual) Monocytes # (Manual) Eosinophils # (Manual) APTT POC ABG pH POC ABG pCO2 Sodium Potassium 2.8 L* Chloride 96.5 L Carbon Dioxide 20 L BUN Creatinine 0.6 L Glucose 139 H POC Glucose Uric Acid Calcium Phosphorus Magnesium Total Bilirubin AST Alkaline Phosphatase Ammonia Total Protein Albumin Urine WBC (Auto) Crossmatch 03/04/16 03/04/16 03/04/16 05:14 09:01 19:38 WBC RBC Hgb Hct MCV RDW Plt Count Lymph % (Auto) Trinity % (Auto) Trinity # Eos # Baso # Seg Neutrophils % Seg Neuts % (Manual) Lymphocytes % (Manual) Monocytes % (Manual) Seg Neutrophils # Seg Neutrophils # Man Lymphocytes # (Manual) Monocytes # (Manual) Eosinophils # (Manual) APTT POC ABG pH POC ABG pCO2 Sodium 135 L Potassium 3.3 L Chloride 95.7 L Carbon Dioxide 19 L BUN Creatinine Glucose 130 H POC Glucose Uric Acid Calcium 8.0 L Phosphorus 1.4 L Magnesium 1.0 L Total Bilirubin 1.9 H AST Alkaline Phosphatase Ammonia 95.0 H Total Protein Albumin 3.0 L Urine WBC (Auto) Crossmatch 03/05/16 03/05/16 03/05/16 07:39 07:39 17:59 WBC 20.3 H RBC 3.50 L Hgb Hct MCV 98 H RDW 16.1 H Plt Count Lymph % (Auto) Trinity % (Auto) Trinity # Eos # Baso # Seg Neutrophils % Seg Neuts % (Manual) Lymphocytes % (Manual) Monocytes % (Manual) Seg Neutrophils # Seg Neutrophils # Man Lymphocytes # (Manual) Monocytes # (Manual) Eosinophils # (Manual) APTT POC ABG pH POC ABG pCO2 Sodium Potassium 2.7 L* 3.2 L Chloride Carbon Dioxide 19 L 18 L BUN Creatinine 1.4 H D 1.4 H Glucose 131 H POC Glucose Uric Acid Calcium 7.6 L 7.3 L Phosphorus 6.7 H D Magnesium 2.6 H Total Bilirubin 1.4 H AST Alkaline Phosphatase Ammonia Total Protein 5.9 L Albumin 2.4 L Urine WBC (Auto) Crossmatch 03/06/16 03/06/16 03/06/16 09:54 09:54 18:07 WBC 22.2 H RBC 3.19 L Hgb 9.9 L Hct MCV 98 H RDW 16.8 H Plt Count Lymph % (Auto) Trinity % (Auto) Trinity # Eos # Baso # Seg Neutrophils % Seg Neuts % (Manual) Lymphocytes % (Manual) Monocytes % (Manual) Seg Neutrophils # Seg Neutrophils # Man Lymphocytes # (Manual) Monocytes # (Manual) Eosinophils # (Manual) APTT POC ABG pH POC ABG pCO2 Sodium 150 H D Potassium 2.8 L* 2.8 L* Chloride 113.5 H Carbon Dioxide 16 L 16 L BUN Creatinine Glucose 137 H 106 H POC Glucose Uric Acid Calcium 7.4 L 7.7 L Phosphorus Magnesium Total Bilirubin AST Alkaline Phosphatase Ammonia Total Protein Albumin Urine WBC (Auto) Crossmatch 03/07/16 03/07/16 03/07/16 04:53 04:53 05:43 WBC 19.7 H RBC 3.20 L Hgb 9.9 L Hct MCV RDW 16.6 H Plt Count Lymph % (Auto) Trinity % (Auto) Trinity # Eos # Baso # Seg Neutrophils % Seg Neuts % (Manual) Lymphocytes % (Manual) Monocytes % (Manual) Seg Neutrophils # Seg Neutrophils # Man Lymphocytes # (Manual) Monocytes # (Manual) Eosinophils # (Manual) APTT POC ABG pH POC ABG pCO2 Sodium Potassium 2.9 L* Chloride 114.1 H Carbon Dioxide 19 L BUN Creatinine Glucose 140 H POC Glucose 143 H Uric Acid Calcium 7.8 L Phosphorus Magnesium Total Bilirubin AST Alkaline Phosphatase Ammonia Total Protein Albumin Urine WBC (Auto) Crossmatch 03/07/16 03/08/16 03/08/16 22:20 05:09 05:09 WBC 32.2 H RBC 3.18 L Hgb 10.0 L Hct MCV RDW 16.8 H Plt Count Lymph % (Auto) Trinity % (Auto) Trinity # Eos # Baso # Seg Neutrophils % Seg Neuts % (Manual) Lymphocytes % (Manual) Monocytes % (Manual) Seg Neutrophils # Seg Neutrophils # Man Lymphocytes # (Manual) Monocytes # (Manual) Eosinophils # (Manual) APTT POC ABG pH POC ABG pCO2 Sodium 155 H D Potassium 6.3 H* D 6.1 H* Chloride Carbon Dioxide 18 L BUN Creatinine 1.6 H D Glucose 213 H POC Glucose Uric Acid Calcium Phosphorus Magnesium Total Bilirubin AST Alkaline Phosphatase Ammonia Total Protein Albumin Urine WBC (Auto) Crossmatch 03/08/16 03/08/16 03/08/16 09:11 16:28 17:27 WBC RBC Hgb Hct MCV RDW Plt Count Lymph % (Auto) Trinity % (Auto) Trinity # Eos # Baso # Seg Neutrophils % Seg Neuts % (Manual) Lymphocytes % (Manual) Monocytes % (Manual) Seg Neutrophils # Seg Neutrophils # Man Lymphocytes # (Manual) Monocytes # (Manual) Eosinophils # (Manual) APTT POC ABG pH POC ABG pCO2 Sodium 156 H Potassium Chloride 126.2 H Carbon Dioxide 19 L BUN Creatinine 1.8 H Glucose 175 H POC Glucose 204 H 130 H Uric Acid Calcium Phosphorus Magnesium Total Bilirubin AST Alkaline Phosphatase Ammonia Total Protein Albumin Urine WBC (Auto) Crossmatch 03/08/16 03/09/16 03/09/16 22:06 05:47 08:00 WBC 29.9 H RBC 2.93 L Hgb 9.0 L Hct 28.4 L MCV RDW 17.4 H Plt Count Lymph % (Auto) Trinity % (Auto) Trinity # Eos # Baso # Seg Neutrophils % Seg Neuts % (Manual) Lymphocytes % (Manual) Monocytes % (Manual) Seg Neutrophils # Seg Neutrophils # Man Lymphocytes # (Manual) Monocytes # (Manual) Eosinophils # (Manual) APTT POC ABG pH POC ABG pCO2 Sodium Potassium Chloride Carbon Dioxide BUN Creatinine Glucose POC Glucose 192 H 206 H Uric Acid Calcium Phosphorus Magnesium Total Bilirubin AST Alkaline Phosphatase Ammonia Total Protein Albumin Urine WBC (Auto) Crossmatch 03/09/16 03/09/16 03/09/16 08:00 11:33 16:03 WBC RBC Hgb Hct MCV RDW Plt Count Lymph % (Auto) Trinity % (Auto) Trinity # Eos # Baso # Seg Neutrophils % Seg Neuts % (Manual) Lymphocytes % (Manual) Monocytes % (Manual) Seg Neutrophils # Seg Neutrophils # Man Lymphocytes # (Manual) Monocytes # (Manual) Eosinophils # (Manual) APTT POC ABG pH POC ABG pCO2 Sodium 154 H Potassium Chloride 123.0 H Carbon Dioxide 21 L BUN 18 H Creatinine 1.9 H Glucose 179 H POC Glucose 152 H 130 H Uric Acid Calcium 8.2 L Phosphorus Magnesium Total Bilirubin AST Alkaline Phosphatase Ammonia Total Protein Albumin Urine WBC (Auto) Crossmatch 03/10/16 03/10/16 03/10/16 06:16 11:53 17:22 WBC RBC Hgb Hct MCV RDW Plt Count Lymph % (Auto) Trinity % (Auto) Trinity # Eos # Baso # Seg Neutrophils % Seg Neuts % (Manual) Lymphocytes % (Manual) Monocytes % (Manual) Seg Neutrophils # Seg Neutrophils # Man Lymphocytes # (Manual) Monocytes # (Manual) Eosinophils # (Manual) APTT POC ABG pH POC ABG pCO2 Sodium Potassium Chloride Carbon Dioxide BUN Creatinine Glucose POC Glucose 170 H 141 H 159 H Uric Acid Calcium Phosphorus Magnesium Total Bilirubin AST Alkaline Phosphatase Ammonia Total Protein Albumin Urine WBC (Auto) Crossmatch 03/10/16 03/10/16 03/10/16 Unknown Unknown Unknown WBC 22.8 H RBC 2.70 L Hgb 8.7 L Hct 26.4 L MCV 98 H RDW 17.1 H Plt Count Lymph % (Auto) Trinity % (Auto) Trinity # Eos # Baso # Seg Neutrophils % Seg Neuts % (Manual) 78.0 H Lymphocytes % (Manual) 12.0 L Monocytes % (Manual) Seg Neutrophils # Seg Neutrophils # Man 17.8 H Lymphocytes # (Manual) Monocytes # (Manual) 1.1 H Eosinophils # (Manual) 0.9 H APTT POC ABG pH POC ABG pCO2 Sodium 147 H Potassium Chloride 115.0 H Carbon Dioxide 20 L BUN 22 H Creatinine 1.6 H Glucose 142 H POC Glucose Uric Acid Calcium 7.7 L Phosphorus Magnesium 1.5 L Total Bilirubin AST Alkaline Phosphatase Ammonia Total Protein Albumin Urine WBC (Auto) Crossmatch 03/11/16 03/11/16 03/11/16 00:11 00:50 06:15 WBC 24.3 H RBC 2.93 L Hgb 9.0 L Hct 28.1 L MCV RDW 17.4 H Plt Count Lymph % (Auto) Trinity % (Auto) Trinity # Eos # Baso # Seg Neutrophils % Seg Neuts % (Manual) 74.0 H Lymphocytes % (Manual) 10.0 L Monocytes % (Manual) 8.0 H Seg Neutrophils # Seg Neutrophils # Man 18.0 H Lymphocytes # (Manual) Monocytes # (Manual) 1.9 H Eosinophils # (Manual) 1.0 H APTT POC ABG pH POC ABG pCO2 Sodium Potassium Chloride Carbon Dioxide BUN Creatinine Glucose POC Glucose 143 H 136 H Uric Acid Calcium Phosphorus Magnesium Total Bilirubin AST Alkaline Phosphatase Ammonia Total Protein Albumin Urine WBC (Auto) Crossmatch 03/11/16 03/12/16 03/12/16 07:24 09:50 12:10 WBC RBC Hgb Hct MCV RDW Plt Count Lymph % (Auto) Trinity % (Auto) Trinity # Eos # Baso # Seg Neutrophils % Seg Neuts % (Manual) Lymphocytes % (Manual) Monocytes % (Manual) Seg Neutrophils # Seg Neutrophils # Man Lymphocytes # (Manual) Monocytes # (Manual) Eosinophils # (Manual) APTT 38.8 H POC ABG pH POC ABG pCO2 Sodium 135 L D Potassium Chloride Carbon Dioxide BUN 27 H Creatinine 1.8 H Glucose 136 H POC Glucose 111 H Uric Acid Calcium 7.5 L Phosphorus Magnesium 1.4 L Total Bilirubin AST Alkaline Phosphatase Ammonia Total Protein Albumin Urine WBC (Auto) Crossmatch 03/12/16 03/12/16 03/13/16 16:39 21:45 05:00 WBC 19.2 H RBC 2.68 L Hgb 8.5 L Hct 25.7 L MCV RDW 17.4 H Plt Count Lymph % (Auto) 9.3 L Trinity % (Auto) 8.7 H Trinity # 1.7 H Eos # 0.5 H Baso # Seg Neutrophils % 78.6 H Seg Neuts % (Manual) Lymphocytes % (Manual) Monocytes % (Manual) Seg Neutrophils # 15.1 H Seg Neutrophils # Man Lymphocytes # (Manual) Monocytes # (Manual) Eosinophils # (Manual) APTT POC ABG pH POC ABG pCO2 Sodium Potassium Chloride Carbon Dioxide BUN Creatinine Glucose POC Glucose 112 H 124 H Uric Acid Calcium Phosphorus Magnesium Total Bilirubin AST Alkaline Phosphatase Ammonia Total Protein Albumin Urine WBC (Auto) Crossmatch 03/13/16 03/13/16 03/14/16 05:00 16:19 06:21 WBC RBC Hgb Hct MCV RDW Plt Count Lymph % (Auto) Trinity % (Auto) Trinity # Eos # Baso # Seg Neutrophils % Seg Neuts % (Manual) Lymphocytes % (Manual) Monocytes % (Manual) Seg Neutrophils # Seg Neutrophils # Man Lymphocytes # (Manual) Monocytes # (Manual) Eosinophils # (Manual) APTT POC ABG pH POC ABG pCO2 Sodium Potassium Chloride Carbon Dioxide 20 L BUN 31 H Creatinine 2.1 H Glucose POC Glucose 61 L 125 H Uric Acid Calcium 7.8 L Phosphorus Magnesium 3.1 H Total Bilirubin AST Alkaline Phosphatase Ammonia Total Protein Albumin Urine WBC (Auto) Crossmatch 03/14/16 03/14/16 03/15/16 13:48 18:34 00:02 WBC RBC Hgb Hct MCV RDW Plt Count Lymph % (Auto) Trinity % (Auto) Trinity # Eos # Baso # Seg Neutrophils % Seg Neuts % (Manual) Lymphocytes % (Manual) Monocytes % (Manual) Seg Neutrophils # Seg Neutrophils # Man Lymphocytes # (Manual) Monocytes # (Manual) Eosinophils # (Manual) APTT POC ABG pH POC ABG pCO2 Sodium Potassium Chloride Carbon Dioxide BUN Creatinine Glucose POC Glucose 107 H 124 H 138 H Uric Acid Calcium Phosphorus Magnesium Total Bilirubin AST Alkaline Phosphatase Ammonia Total Protein Albumin Urine WBC (Auto) Crossmatch 03/15/16 03/15/16 03/15/16 06:40 06:40 07:23 WBC 13.5 H RBC 2.32 L Hgb 7.5 L Hct 22.3 L MCV RDW 17.5 H Plt Count Lymph % (Auto) 12.8 L Trinity % (Auto) 8.2 H Trinity # 1.1 H Eos # Baso # Seg Neutrophils % 75.5 H Seg Neuts % (Manual) Lymphocytes % (Manual) Monocytes % (Manual) Seg Neutrophils # 10.2 H Seg Neutrophils # Man Lymphocytes # (Manual) Monocytes # (Manual) Eosinophils # (Manual) APTT POC ABG pH POC ABG pCO2 Sodium Potassium Chloride 110.8 H Carbon Dioxide 16 L BUN 28 H Creatinine 2.4 H Glucose POC Glucose 112 H Uric Acid Calcium 7.0 L Phosphorus Magnesium Total Bilirubin AST Alkaline Phosphatase Ammonia Total Protein Albumin Urine WBC (Auto) Crossmatch 03/15/16 03/15/16 03/15/16 11:46 16:32 20:52 WBC RBC Hgb Hct MCV RDW Plt Count Lymph % (Auto) Trinity % (Auto) Trinity # Eos # Baso # Seg Neutrophils % Seg Neuts % (Manual) Lymphocytes % (Manual) Monocytes % (Manual) Seg Neutrophils # Seg Neutrophils # Man Lymphocytes # (Manual) Monocytes # (Manual) Eosinophils # (Manual) APTT POC ABG pH POC ABG pCO2 Sodium Potassium Chloride Carbon Dioxide BUN Creatinine Glucose POC Glucose 138 H 127 H 118 H Uric Acid Calcium Phosphorus Magnesium Total Bilirubin AST Alkaline Phosphatase Ammonia Total Protein Albumin Urine WBC (Auto) Crossmatch 03/16/16 03/16/16 03/16/16 06:01 06:01 06:24 WBC 27.8 H RBC 2.41 L Hgb 7.4 L Hct 23.2 L MCV RDW 18.2 H Plt Count Lymph % (Auto) Trinity % (Auto) Trinity # Eos # Baso # Seg Neutrophils % Seg Neuts % (Manual) 91.5 H Lymphocytes % (Manual) 2.5 L Monocytes % (Manual) Seg Neutrophils # Seg Neutrophils # Man 25.4 H Lymphocytes # (Manual) 0.7 L Monocytes # (Manual) Eosinophils # (Manual) APTT POC ABG pH POC ABG pCO2 Sodium Potassium Chloride 113.0 H Carbon Dioxide 15 L BUN 30 H Creatinine 2.6 H Glucose 130 H POC Glucose 159 H Uric Acid Calcium 6.8 L Phosphorus Magnesium Total Bilirubin AST Alkaline Phosphatase Ammonia Total Protein Albumin Urine WBC (Auto) Crossmatch 03/16/16 03/16/16 03/16/16 11:34 16:37 23:46 WBC RBC Hgb Hct MCV RDW Plt Count Lymph % (Auto) Trinity % (Auto) Trinity # Eos # Baso # Seg Neutrophils % Seg Neuts % (Manual) Lymphocytes % (Manual) Monocytes % (Manual) Seg Neutrophils # Seg Neutrophils # Man Lymphocytes # (Manual) Monocytes # (Manual) Eosinophils # (Manual) APTT POC ABG pH POC ABG pCO2 Sodium Potassium Chloride Carbon Dioxide BUN Creatinine Glucose POC Glucose 164 H 109 H 114 H Uric Acid Calcium Phosphorus Magnesium Total Bilirubin AST Alkaline Phosphatase Ammonia Total Protein Albumin Urine WBC (Auto) Crossmatch 03/17/16 03/17/16 03/17/16 11:33 22:11 23:50 WBC RBC Hgb Hct MCV RDW Plt Count Lymph % (Auto) Trinity % (Auto) Trinity # Eos # Baso # Seg Neutrophils % Seg Neuts % (Manual) Lymphocytes % (Manual) Monocytes % (Manual) Seg Neutrophils # Seg Neutrophils # Man Lymphocytes # (Manual) Monocytes # (Manual) Eosinophils # (Manual) APTT POC ABG pH 7.319 L POC ABG pCO2 28.6 L Sodium Potassium Chloride 111.6 H Carbon Dioxide 16 L BUN 34 H Creatinine 2.7 H Glucose 115 H POC Glucose 117 H Uric Acid 8.4 H Calcium 7.4 L Phosphorus Magnesium Total Bilirubin AST Alkaline Phosphatase Ammonia Total Protein Albumin Urine WBC (Auto) Crossmatch 03/17/16 03/18/16 03/19/16 23:50 11:11 05:20 WBC 18.2 H RBC 2.11 L Hgb 6.7 L Hct 20.1 L MCV RDW 17.5 H Plt Count Lymph % (Auto) Trinity % (Auto) Trinity # Eos # Baso # Seg Neutrophils % Seg Neuts % (Manual) Lymphocytes % (Manual) Monocytes % (Manual) Seg Neutrophils # Seg Neutrophils # Man Lymphocytes # (Manual) Monocytes # (Manual) Eosinophils # (Manual) APTT POC ABG pH 7.320 L POC ABG pCO2 29.9 L Sodium Potassium Chloride Carbon Dioxide BUN Creatinine Glucose POC Glucose 124 H Uric Acid Calcium Phosphorus Magnesium Total Bilirubin AST Alkaline Phosphatase Ammonia Total Protein Albumin Urine WBC (Auto) Crossmatch 03/19/16 03/19/16 03/19/16 05:20 06:11 09:30 WBC RBC Hgb Hct MCV RDW Plt Count Lymph % (Auto) Trinity % (Auto) Trinity # Eos # Baso # Seg Neutrophils % Seg Neuts % (Manual) Lymphocytes % (Manual) Monocytes % (Manual) Seg Neutrophils # Seg Neutrophils # Man Lymphocytes # (Manual) Monocytes # (Manual) Eosinophils # (Manual) APTT POC ABG pH POC ABG pCO2 Sodium Potassium Chloride 114.1 H Carbon Dioxide 16 L BUN 32 H Creatinine 2.2 H Glucose POC Glucose 63 L Uric Acid Calcium 7.7 L Phosphorus Magnesium Total Bilirubin AST Alkaline Phosphatase Ammonia Total Protein Albumin Urine WBC (Auto) Crossmatch See Detail 03/19/16 03/19/16 03/19/16 12:14 16:30 23:57 WBC RBC Hgb Hct MCV RDW Plt Count Lymph % (Auto) Trinity % (Auto) Trinity # Eos # Baso # Seg Neutrophils % Seg Neuts % (Manual) Lymphocytes % (Manual) Monocytes % (Manual) Seg Neutrophils # Seg Neutrophils # Man Lymphocytes # (Manual) Monocytes # (Manual) Eosinophils # (Manual) APTT POC ABG pH POC ABG pCO2 Sodium Potassium Chloride Carbon Dioxide BUN Creatinine Glucose POC Glucose 138 H 133 H 190 H Uric Acid Calcium Phosphorus Magnesium Total Bilirubin AST Alkaline Phosphatase Ammonia Total Protein Albumin Urine WBC (Auto) Crossmatch 03/20/16 03/20/16 03/20/16 06:38 11:52 15:36 WBC RBC Hgb Hct MCV RDW Plt Count Lymph % (Auto) Trinity % (Auto) Trinity # Eos # Baso # Seg Neutrophils % Seg Neuts % (Manual) Lymphocytes % (Manual) Monocytes % (Manual) Seg Neutrophils # Seg Neutrophils # Man Lymphocytes # (Manual) Monocytes # (Manual) Eosinophils # (Manual) APTT POC ABG pH POC ABG pCO2 Sodium Potassium Chloride Carbon Dioxide BUN Creatinine Glucose POC Glucose 163 H 138 H 151 H Uric Acid Calcium Phosphorus Magnesium Total Bilirubin AST Alkaline Phosphatase Ammonia Total Protein Albumin Urine WBC (Auto) Crossmatch 03/20/16 03/20/16 03/20/16 21:00 23:55 Unknown WBC 30.1 H RBC 3.23 L Hgb Hct 29.6 L D MCV RDW 16.2 H Plt Count Lymph % (Auto) Trinity % (Auto) Trinity # Eos # Baso # Seg Neutrophils % Seg Neuts % (Manual) Lymphocytes % (Manual) Monocytes % (Manual) Seg Neutrophils # Seg Neutrophils # Man Lymphocytes # (Manual) Monocytes # (Manual) Eosinophils # (Manual) APTT POC ABG pH POC ABG pCO2 25.9 L Sodium Potassium Chloride Carbon Dioxide BUN Creatinine Glucose POC Glucose 167 H Uric Acid Calcium Phosphorus Magnesium Total Bilirubin AST Alkaline Phosphatase Ammonia Total Protein Albumin Urine WBC (Auto) Crossmatch 03/20/16 03/21/16 03/21/16 Unknown 04:45 04:45 WBC 28.0 H RBC 3.37 L Hgb Hct MCV RDW 16.4 H Plt Count Lymph % (Auto) Trinity % (Auto) Trinity # Eos # Baso # Seg Neutrophils % Seg Neuts % (Manual) Lymphocytes % (Manual) Monocytes % (Manual) Seg Neutrophils # Seg Neutrophils # Man Lymphocytes # (Manual) Monocytes # (Manual) Eosinophils # (Manual) APTT POC ABG pH POC ABG pCO2 Sodium Potassium 5.1 H Chloride 110.4 H Carbon Dioxide 14 L BUN 34 H 37 H Creatinine 2.9 H 3.2 H Glucose 131 H 124 H POC Glucose Uric Acid Calcium 7.5 L 7.1 L Phosphorus 4.6 H Magnesium 1.6 L Total Bilirubin AST Alkaline Phosphatase Ammonia Total Protein Albumin Urine WBC (Auto) Crossmatch 03/21/16 03/21/16 03/21/16 05:52 11:23 17:48 WBC RBC Hgb Hct MCV RDW Plt Count Lymph % (Auto) Trinity % (Auto) Trinity # Eos # Baso # Seg Neutrophils % Seg Neuts % (Manual) Lymphocytes % (Manual) Monocytes % (Manual) Seg Neutrophils # Seg Neutrophils # Man Lymphocytes # (Manual) Monocytes # (Manual) Eosinophils # (Manual) APTT POC ABG pH POC ABG pCO2 Sodium Potassium Chloride Carbon Dioxide BUN Creatinine Glucose POC Glucose 136 H 144 H 149 H Uric Acid Calcium Phosphorus Magnesium Total Bilirubin AST Alkaline Phosphatase Ammonia Total Protein Albumin Urine WBC (Auto) Crossmatch 03/21/16 03/22/16 03/22/16 22:05 00:44 04:30 WBC 23.2 H RBC 3.38 L Hgb Hct MCV RDW 16.1 H Plt Count Lymph % (Auto) Trinity % (Auto) Trinity # Eos # Baso # Seg Neutrophils % Seg Neuts % (Manual) Lymphocytes % (Manual) Monocytes % (Manual) Seg Neutrophils # Seg Neutrophils # Man Lymphocytes # (Manual) Monocytes # (Manual) Eosinophils # (Manual) APTT POC ABG pH POC ABG pCO2 Sodium Potassium Chloride Carbon Dioxide BUN Creatinine Glucose POC Glucose 129 H 121 H Uric Acid Calcium Phosphorus Magnesium Total Bilirubin AST Alkaline Phosphatase Ammonia Total Protein Albumin Urine WBC (Auto) Crossmatch 03/22/16 03/22/16 03/22/16 04:30 06:17 17:47 WBC RBC Hgb Hct MCV RDW Plt Count Lymph % (Auto) Trinity % (Auto) Trinity # Eos # Baso # Seg Neutrophils % Seg Neuts % (Manual) Lymphocytes % (Manual) Monocytes % (Manual) Seg Neutrophils # Seg Neutrophils # Man Lymphocytes # (Manual) Monocytes # (Manual) Eosinophils # (Manual) APTT POC ABG pH POC ABG pCO2 Sodium Potassium 3.0 L D Chloride Carbon Dioxide BUN 27 H Creatinine 1.5 H D Glucose 124 H POC Glucose 120 H Uric Acid Calcium 6.9 L Phosphorus Magnesium Total Bilirubin AST Alkaline Phosphatase Ammonia Total Protein Albumin Urine WBC (Auto) 138.0 H Crossmatch 03/23/16 03/23/1617 04:00 07:00 12:52 WBC 22.2 H RBC 3.59 L Hgb Hct MCV RDW 15.8 H Plt Count Lymph % (Auto) Trinity % (Auto) Trinity # Eos # Baso # Seg Neutrophils % Seg Neuts % (Manual) Lymphocytes % (Manual) Monocytes % (Manual) Seg Neutrophils # Seg Neutrophils # Man Lymphocytes # (Manual) Monocytes # (Manual) Eosinophils # (Manual) APTT POC ABG pH POC ABG pCO2 Sodium Potassium 3.1 L Chloride Carbon Dioxide BUN Creatinine Glucose 111 H POC Glucose 112 H Uric Acid Calcium 6.6 L Phosphorus Magnesium Total Bilirubin AST Alkaline Phosphatase Ammonia Total Protein Albumin Urine WBC (Auto) Crossmatch 03/23/16 03/23/16 03/24/16 17:21 23:53 06:08 WBC RBC Hgb Hct MCV RDW Plt Count Lymph % (Auto) Trinity % (Auto) Trinity # Eos # Baso # Seg Neutrophils % Seg Neuts % (Manual) Lymphocytes % (Manual) Monocytes % (Manual) Seg Neutrophils # Seg Neutrophils # Man Lymphocytes # (Manual) Monocytes # (Manual) Eosinophils # (Manual) APTT POC ABG pH POC ABG pCO2 Sodium Potassium Chloride Carbon Dioxide BUN Creatinine Glucose POC Glucose 120 H 110 H 127 H Uric Acid Calcium Phosphorus Magnesium Total Bilirubin AST Alkaline Phosphatase Ammonia Total Protein Albumin Urine WBC (Auto) Crossmatch 03/24/16 03/24/16 03/24/16 06:44 06:44 11:22 WBC 25.1 H RBC 3.22 L Hgb 9.8 L Hct 29.6 L MCV RDW 15.8 H Plt Count Lymph % (Auto) Trinity % (Auto) Trinity # Eos # Baso # Seg Neutrophils % Seg Neuts % (Manual) Lymphocytes % (Manual) Monocytes % (Manual) Seg Neutrophils # Seg Neutrophils # Man Lymphocytes # (Manual) Monocytes # (Manual) Eosinophils # (Manual) APTT POC ABG pH POC ABG pCO2 Sodium Potassium Chloride Carbon Dioxide BUN Creatinine 0.5 L Glucose 123 H POC Glucose 107 H Uric Acid Calcium 6.4 L Phosphorus Magnesium Total Bilirubin AST Alkaline Phosphatase Ammonia Total Protein Albumin Urine WBC (Auto) Crossmatch 03/24/16 03/24/16 03/25/16 16:17 23:44 04:50 WBC 25.2 H RBC 3.34 L Hgb 10.0 L Hct MCV RDW 16.1 H Plt Count Lymph % (Auto) Trinity % (Auto) Trinity # Eos # Baso # Seg Neutrophils % Seg Neuts % (Manual) Lymphocytes % (Manual) Monocytes % (Manual) Seg Neutrophils # Seg Neutrophils # Man Lymphocytes # (Manual) Monocytes # (Manual) Eosinophils # (Manual) APTT POC ABG pH POC ABG pCO2 Sodium Potassium Chloride Carbon Dioxide BUN Creatinine Glucose POC Glucose 135 H 156 H Uric Acid Calcium Phosphorus Magnesium Total Bilirubin AST Alkaline Phosphatase Ammonia Total Protein Albumin Urine WBC (Auto) Crossmatch 03/25/16 03/25/16 03/25/16 04:50 06:14 12:24 WBC RBC Hgb Hct MCV RDW Plt Count Lymph % (Auto) Trinity % (Auto) Trinity # Eos # Baso # Seg Neutrophils % Seg Neuts % (Manual) Lymphocytes % (Manual) Monocytes % (Manual) Seg Neutrophils # Seg Neutrophils # Man Lymphocytes # (Manual) Monocytes # (Manual) Eosinophils # (Manual) APTT POC ABG pH POC ABG pCO2 Sodium Potassium Chloride Carbon Dioxide BUN Creatinine 0.4 L Glucose POC Glucose 106 H 106 H Uric Acid Calcium 6.3 L Phosphorus Magnesium Total Bilirubin AST Alkaline Phosphatase Ammonia Total Protein Albumin Urine WBC (Auto) Crossmatch 03/26/16 03/26/16 03/26/16 01:25 04:00 06:12 WBC 21.6 H RBC 3.22 L Hgb 9.7 L Hct 29.7 L MCV RDW 15.9 H Plt Count Lymph % (Auto) Trinity % (Auto) Trinity # Eos # Baso # Seg Neutrophils % Seg Neuts % (Manual) 93.0 H Lymphocytes % (Manual) 2.0 L Monocytes % (Manual) Seg Neutrophils # Seg Neutrophils # Man 20.1 H Lymphocytes # (Manual) 0.4 L Monocytes # (Manual) 0.9 H Eosinophils # (Manual) APTT POC ABG pH POC ABG pCO2 Sodium Potassium Chloride Carbon Dioxide BUN Creatinine 0.4 L Glucose 116 H POC Glucose 117 H Uric Acid Calcium 6.5 L Phosphorus Magnesium Total Bilirubin 1.3 H AST Alkaline Phosphatase 155 H Ammonia Total Protein Albumin 1.5 L Urine WBC (Auto) Crossmatch 03/26/16 03/26/16 03/26/16 06:42 11:18 16:21 WBC RBC Hgb Hct MCV RDW Plt Count Lymph % (Auto) Trinity % (Auto) Trinity # Eos # Baso # Seg Neutrophils % Seg Neuts % (Manual) Lymphocytes % (Manual) Monocytes % (Manual) Seg Neutrophils # Seg Neutrophils # Man Lymphocytes # (Manual) Monocytes # (Manual) Eosinophils # (Manual) APTT POC ABG pH POC ABG pCO2 Sodium Potassium Chloride Carbon Dioxide BUN Creatinine Glucose POC Glucose 120 H 109 H 112 H Uric Acid Calcium Phosphorus Magnesium Total Bilirubin AST Alkaline Phosphatase Ammonia Total Protein Albumin Urine WBC (Auto) Crossmatch 03/27/16 03/27/16 03/27/16 00:27 06:25 07:19 WBC 21.4 H RBC 3.11 L Hgb 9.4 L Hct 29.2 L MCV RDW 16.3 H Plt Count Lymph % (Auto) Trinity % (Auto) Trinity # Eos # Baso # Seg Neutrophils % Seg Neuts % (Manual) 83.0 H Lymphocytes % (Manual) 7.5 L Monocytes % (Manual) 9.0 H Seg Neutrophils # Seg Neutrophils # Man 17.8 H Lymphocytes # (Manual) Monocytes # (Manual) 1.9 H Eosinophils # (Manual) APTT POC ABG pH POC ABG pCO2 Sodium Potassium Chloride Carbon Dioxide BUN Creatinine Glucose POC Glucose 124 H 116 H Uric Acid Calcium Phosphorus Magnesium Total Bilirubin AST Alkaline Phosphatase Ammonia Total Protein Albumin Urine WBC (Auto) Crossmatch 03/27/16 03/27/16 03/27/16 07:19 11:12 23:30 WBC RBC Hgb Hct MCV RDW Plt Count Lymph % (Auto) Trinity % (Auto) Trinity # Eos # Baso # Seg Neutrophils % Seg Neuts % (Manual) Lymphocytes % (Manual) Monocytes % (Manual) Seg Neutrophils # Seg Neutrophils # Man Lymphocytes # (Manual) Monocytes # (Manual) Eosinophils # (Manual) APTT POC ABG pH POC ABG pCO2 Sodium Potassium Chloride Carbon Dioxide BUN Creatinine 0.4 L Glucose 111 H POC Glucose 109 H 107 H Uric Acid Calcium 6.8 L Phosphorus Magnesium Total Bilirubin AST Alkaline Phosphatase 216 H Ammonia Total Protein Albumin 1.7 L Urine WBC (Auto) Crossmatch 03/28/16 03/28/16 03/29/16 06:06 16:23 00:04 WBC RBC Hgb Hct MCV RDW Plt Count Lymph % (Auto) Trinity % (Auto) Trinity # Eos # Baso # Seg Neutrophils % Seg Neuts % (Manual) Lymphocytes % (Manual) Monocytes % (Manual) Seg Neutrophils # Seg Neutrophils # Man Lymphocytes # (Manual) Monocytes # (Manual) Eosinophils # (Manual) APTT POC ABG pH POC ABG pCO2 Sodium Potassium Chloride Carbon Dioxide BUN Creatinine Glucose POC Glucose 130 H 109 H 120 H Uric Acid Calcium Phosphorus Magnesium Total Bilirubin AST Alkaline Phosphatase Ammonia Total Protein Albumin Urine WBC (Auto) Crossmatch 03/29/16 03/29/16 03/30/16 06:57 10:28 06:30 WBC 19.8 H RBC 2.80 L Hgb 8.5 L Hct 26.0 L MCV RDW 15.9 H Plt Count 462 H Lymph % (Auto) 8.5 L Trinity % (Auto) 7.4 H Trinity # 1.5 H Eos # Baso # 0.3 H Seg Neutrophils % 81.5 H Seg Neuts % (Manual) Lymphocytes % (Manual) Monocytes % (Manual) Seg Neutrophils # 16.1 H Seg Neutrophils # Man Lymphocytes # (Manual) Monocytes # (Manual) Eosinophils # (Manual) APTT POC ABG pH POC ABG pCO2 Sodium 130 L D Potassium 6.5 H* D Chloride Carbon Dioxide 19 L BUN Creatinine 0.4 L Glucose POC Glucose 107 H Uric Acid Calcium 6.7 L Phosphorus Magnesium Total Bilirubin AST 56 H Alkaline Phosphatase 190 H Ammonia Total Protein Albumin 0.8 L Urine WBC (Auto) Crossmatch 03/30/16 06:30 WBC RBC Hgb Hct MCV RDW Plt Count Lymph % (Auto) Trinity % (Auto) Trinity # Eos # Baso # Seg Neutrophils % Seg Neuts % (Manual) Lymphocytes % (Manual) Monocytes % (Manual) Seg Neutrophils # Seg Neutrophils # Man Lymphocytes # (Manual) Monocytes # (Manual) Eosinophils # (Manual) APTT POC ABG pH POC ABG pCO2 Sodium Potassium Chloride Carbon Dioxide BUN Creatinine 0.4 L Glucose 112 H POC Glucose Uric Acid Calcium 6.7 L Phosphorus Magnesium Total Bilirubin AST Alkaline Phosphatase 205 H Ammonia Total Protein 6.1 L Albumin 1.3 L Urine WBC (Auto) Crossmatch
== END 2016-03-30 16:00 | DRG 871 ==
LOC: ED 17:38 → 3A 23:14 → CC1 03-20 21:47 → 3A 03-23 12:16
PROVIDERS: ADMIT Internal Medicine; ATTEND Internal Medicine
PROC: B518YZA Fluoroscopy of Superior Vena Cava using Other Contrast, Guidance (ICD-10-PCS; principal; 2016-03-08)
PROC: 02HV33Z Insertion of Infusion Device into Superior Vena Cava, Percutaneous Approach (ICD-10-PCS; principal; 2016-03-08)
PROC: 009U3ZX Drainage of Spinal Canal, Percutaneous Approach, Diagnostic (ICD-10-PCS; 2016-03-12)
PROC: 4A033R1 Measurement of Arterial Saturation, Peripheral, Percutaneous Approach (ICD-10-PCS; 2016-03-17)
PROC: 0DH63UZ Insertion of Feeding Device into Stomach, Percutaneous Approach (ICD-10-PCS; 2016-03-18)
PROC: 4A033R1 Measurement of Arterial Saturation, Peripheral, Percutaneous Approach (ICD-10-PCS; 2016-03-18)
PROC: 30233N1 Transfusion of Nonautologous Red Blood Cells into Peripheral Vein, Percutaneous Approach (ICD-10-PCS; 2016-03-19)
PROC: 4A033R1 Measurement of Arterial Saturation, Peripheral, Percutaneous Approach (ICD-10-PCS; 2016-03-20)
DX: A41.9 Sepsis, unspecified organism (principal); G93.41 Metabolic encephalopathy; J96.01 Acute respiratory failure with hypoxia; N17.0 Acute kidney failure with tubular necrosis; F10.231 Alcohol dependence with withdrawal delirium; N39.0 Urinary tract infection, site not specified; E87.0 Hyperosmolality and hypernatremia; N13.6 Pyonephrosis; E72.4 Disorders of ornithine metabolism; J90 Pleural effusion, not elsewhere classified; E87.6 Hypokalemia; J44.9 Chronic obstructive pulmonary disease, unspecified; F17.200 Nicotine dependence, unspecified, uncomplicated; I10 Essential (primary) hypertension; R54 Age-related physical debility; E86.0 Dehydration; G62.9 Polyneuropathy, unspecified; B96.20 Unspecified Escherichia coli [E. coli] as the cause of diseases classified elsewhere; E83.39 Other disorders of phosphorus metabolism; G47.33 Obstructive sleep apnea (adult) (pediatric); R13.12 Dysphagia, oropharyngeal phase; E87.5 Hyperkalemia; D63.8 Anemia in other chronic diseases classified elsewhere; Z90.710 Acquired absence of both cervix and uterus; Z78.1 Physical restraint status; Z71.6 Tobacco abuse counseling; Z98.890 Other specified postprocedural states; Z79.899 Other long term (current) drug therapy; Z82.49 Family history of ischemic heart disease and other diseases of the circulatory system; Z79.1 Long term (current) use of non-steroidal anti-inflammatories (NSAID)
CPT/HCPCS: 31720; 36415; 36600; 62270; 70450; 70551; 71010; 74000; 74176; 76770; 77003; 80048; 80053; 81001; 82140; 82270; 82330; 82550; 82553; 82803; 82947; 82962; 83735; 83930; 84100; 84132; 84160; 84439; 84443; 84484; 84550; 85007; 85025; 85027; 85610; 85730; 86038; 86334; 86850; 86900; 86901; 86920; 87040; 87076; 87086; 87116; 87186; 89051; 93306; 94640; 94760; G8978-GP; G8979-GP; G8980-GP; G8996-GN; G8997-GN; G8998-GN; J0360; J0610; J0690; J1644; J1815; J1940; J1956; J2060; J2543; J2704; J2997; J3411; J3420; J3475; J3480; J7030; J7040; J7042; J7070; P9016; Q0177

== ENCOUNTER 2016-08-05 09:17 | Outpatient (CLI) | payer MEDICARE ==
--- NOTE | 2016-08-05 14:22 | Fluoroscopy Report ---
MODIFIED BARIUM SWALLOW INDICATION: Dysphagia. G-tube. COMPARISON: None similar. FINDINGS: Fluoroscopy provided by radiologist for speech therapist to assess the swallowing mechanism. Food items of various consistencies given. No aspiration. Various radiopaque dental material and multilevel cervical spondylosis noted. IMPRESSION: Successful modified barium swallow. Please refer to detailed report from speech pathologist. Thank you for the opportunity to participate in this patient's care.
== END 2016-08-05 09:18 | disposition home or self-care (01) ==
LOC: PT 09:17
PROVIDERS: ATTEND Internal Medicine Gastroenterology
DX: R13.12 Dysphagia, oropharyngeal phase (principal); M47.892 Other spondylosis, cervical region
CPT/HCPCS: 74230; 92611; G8996; G8997; G8998

== ENCOUNTER 2016-12-03 03:32 | Emergency (ER) | payer MEDICARE ==
[2016-12-03 04:08] VITALS: BP 180/109
[2016-12-03] MEDS ORDERED: XOPENEX IH ONE (04:10)
[2016-12-03 05:30] LABS: Basophils % (Auto) 0.4 % (0.0-1.8); Eosinophils % (Auto) 7.1 % (0.0-4.3); Hematocrit 34.6 % (30.3-42.9); Hemoglobin 11.8 gm/dl (10.1-14.3); Mean Corpuscular HGB Conc 34 % (30-34); Mean Corpuscular Hemoglobin 29 pg (28-32); Mean Corpuscular Volume 85 fl (79-97); Platelet Count 195 K/mm3 (140-440); Red Blood Count 4.09 M/mm3 (3.65-5.03); Red Cell Distribution Width 16.1 % (13.2-15.2); White Blood Count 7.7 K/mm3 (4.5-11.0)
[2016-12-03 05:35] LABS: Anion Gap 19 mmol/L; BUN/Creatinine Ratio 20; Blood Urea Nitrogen 16 mg/dL (7-17); Calcium 9.4 mg/dL (8.4-10.2); Carbon Dioxide 25 mmol/L (22-30); Chloride 102.3 mmol/L (98-107); Glucose 116 mg/dL (65-100); Potassium 4.5 mmol/L (3.6-5.0); Sodium 142 mmol/L (137-145)
--- NOTE | 2016-12-03 07:51 | XRay Report ---
ROUTINE CHEST, TWO VIEWS: HISTORY: Shortness of breath. The trachea, heart, mediastinal contour, lung marino and bony thorax are unremarkable. CHF has resolved since 04/25/16. IMPRESSION: Unremarkable chest x-ray.
== END 2016-12-03 05:32 | disposition left against medical advice (07) ==
LOC: ED 03:32
DX: R06.02 Shortness of breath (principal); R06.2 Wheezing; Z53.21 Procedure and treatment not carried out due to patient leaving prior to being seen by health care provider
CPT/HCPCS: 36415; 71020; 80048; 82140; 82805; 82962; 84484; 85025; 93005; 93010; 94640

== ENCOUNTER 2017-02-25 23:26 | Emergency (ER) | payer MEDICARE, BC ==
[2017-02-25 23:59] VITALS: BP 162/102
[2017-02-25] MEDS ORDERED: ASPIRIN PO ONE (23:59)
[2017-02-26 00:37] LABS: Basophils % (Auto) 0.4 % (0.0-1.8); Eosinophils # (Auto) 1.2 K/mm3 (0.0-0.4); Eosinophils % (Auto) 13.5 % (0.0-4.3); Hematocrit 40.6 % (30.3-42.9); Hemoglobin 13.3 gm/dl (10.1-14.3); Lymphocytes # (Auto) 2.3 K/mm3 (1.2-5.4); Lymphocytes % (Auto) 27.2 % (13.4-35.0); Mean Corpuscular HGB Conc 33 % (30-34); Mean Corpuscular Hemoglobin 28 pg (28-32); Mean Corpuscular Volume 87 fl (79-97); Monocytes # (Auto) 0.5 K/mm3 (0.0-0.8); Monocytes % (Auto) 6.2 % (0.0-7.3); Platelet Count 240 K/mm3 (140-440); Red Blood Count 4.69 M/mm3 (3.65-5.03); Red Cell Distribution Width 15.1 % (13.2-15.2)
[2017-02-26 00:59] LABS: BUN/Creatinine Ratio 22; Blood Urea Nitrogen 20 mg/dL (7-17); Calcium 9.6 mg/dL (8.4-10.2); Hemolysis Index 15
[2017-02-26 20:46] LABS: Chol/HDL Ratio 2.32 %
== END 2017-02-26 07:30 | disposition left against medical advice (07) ==
LOC: ED 23:26
DX: R07.9 Chest pain, unspecified (principal); Z53.21 Procedure and treatment not carried out due to patient leaving prior to being seen by health care provider
CPT/HCPCS: 36415; 80048; 80061; 84484; 85025; 93005; 93010